=== PATIENT | male | born 1940 | race Caucasian/White ===

== ENCOUNTER 2016-06-30 22:27 | Inpatient (IN) | payer OTHER ==
[~2016-06-30] VITALS: Ht 167.6 cm; Wt 78.9 kg
[~2016-06-30 22:27] MED LIST: ENALAPRIL20 MG PO; FUROSEMIDE20 M1 PO; HYDRODIURIL 2525 MG PO; LEVOTHYROXINE0.2 MG PO; METHOTREXATE PO
--- NOTE | 2016-06-30 22:38 | NUR ---
RECENTLY DIAGNOSED WITH DIABETES, STATES BLOOD SUGAR HAS BEEN GOING UP AND DOWN. LAST NIGHT BECAME VERY SOB, ANY KIND OF MOVEMENT MADE HIM SOB. PT DENIES CP BUT HAS NON PRODUCTIVE COUGH
--- NOTE | 2016-06-30 22:57 | ED DYSPNEA/ASTHMA COMPLAINT ---
History of Present Illness General Chief Complaint: Dyspnea (COPD, CHF, Other) Stated Complaint: SOB Source: patient, family, old records Exam Limitations: no limitations Vital Signs & Intake/Output Vital Signs & Intake/Output Vital Signs Date Time Temp Pulse Resp B/P Pulse O2 O2 Flow FiO2 Ox Delivery Rate 06/30 2327 97 Nasal 3.0L Cannula 06/30 2237 98.6 98 20 152/89 91 Room Air ED Intake and Output 07/01 0000 06/30 1200 Intake Total 0 Output Total Balance 0 Intake, Oral 0 Patient 180 lb Weight Allergies Coded Allergies: aspirin (Mild, ULCER 10/13/15) Reconcile Medications Enalapril Maleate 20 MG TAB 1 TAB PO DAILY HTN (Reported) Furosemide 20 MG TAB 1 TAB PO DAILY FLUID OVERLOAD (Reported) Hydrochlorothiazide (Hydrodiuril 25 MG Tab) 25 MG TAB 1 TAB PO DAILY HTN ( Reported) Levothyroxine Sodium 0.2 MG TAB 1 TAB PO DAILY THYROID (Reported) Methotrexate Sodium (Rheumatrex) 2.5 MG TAB 10 MG PO QTHURS RA (Reported) Triage Note: RECENTLY DIAGNOSED WITH DIABETES, STATES BLOOD SUGAR HAS BEEN GOING UP AND DOWN. LAST NIGHT BECAME VERY SOB, ANY KIND OF MOVEMENT MADE HIM SOB. PT DENIES CP BUT HAS NON PRODUCTIVE COUGH Triage Nurses Notes Reviewed? yes HPI: Patient was diagnosed with diabetes last week. On Monday his legs began swelling up. Yesterday he developed shortness of breath and dyspnea on exertion. Patient denies any orthopnea. Patient denies any chest pain or palpitations. There are no fevers or chills. There is no coughing. Patient states that he has to stop walking across the room to catch his breath. Past History Travel History Traveled to [place] past 21 day No Medical History Any Pertinent Medical History? see below for history Neurological: CVA Cardiovascular: CHF, hypertension, CARDIOMEGALY Musculoskeletal: rheumatoid arthritis Endocrine: hypothyroidism Cancer(s): prostate cancer History of MRSA: No History of VRE: No History of CDIFF: No Pneumonia Vaccine: 04/11/09 Surgical History Surgical History: non-contributory Psychosocial History Who do you live with Spouse Services at Home None What is your primary language Serbocroatian Tobacco Use: Never used ETOH Use: denies use Illicit Drug Use: denies illicit drug use Family History Hx Contributory? No Review of Systems Review of Systems Constitutional: Reports: no symptoms. EENTM: Reports: no symptoms. Respiratory: Reports: see HPI, short of breath. Cardiovascular: Reports: no symptoms. GI: Reports: no symptoms. Genitourinary: Reports: no symptoms. Musculoskeletal: Reports: see HPI. Skin: Reports: no symptoms. Neurological/Psychological: Reports: no symptoms. Hematologic/Endocrine: Reports: no symptoms. Immunologic/Allergic: Reports: no symptoms. All Other Systems: Reviewed and Negative Physical Exam Physical Exam General Appearance: well developed/nourished, alert, awake, anxious, moderate distress Head: atraumatic, normal appearance Eyes: Bilateral: PERRL, EOMI. Ears, Nose, Throat: normal pharynx, normal ENT inspection Neck: JVD (8CM WHILE SITTING STRAIGHT UP) Respiratory: crackles Cardiovascular: regular rate/rhythm, normal peripheral pulses Gastrointestinal: normal bowel sounds, soft, non-tender, no organomegaly Extremities: pedal edema Neurologic/Psych: no motor/sensory deficits, awake, alert, oriented x 3, normal mood/affect Skin: intact, normal color, warm/dry Lymphatic: no anterior cervical desmond Core Measures ACS in differential dx? Yes ASA ordered for poss ACS? Yes-ordered Severe Sepsis Present: No Septic Shock Present: No Progress Differential Diagnosis: AMI, bronchitis, CHF, COPD, pulmonary embolism, pneumonia Plan of Care: Orders Procedure Date/time Status Admit to inpatient 07/01 22 Active Telemetry/Inspector Toys 06/30 2256 Active URINALYSIS 06/30 2256 Complete TROPONIN LEVEL 06/30 2256 Complete COMPREHENSIVE METABOLIC PANEL 06/30 2256 Complete CBC WITHOUT DIFFERENTIAL 06/30 2256 Complete B-TYPE NATRIURETIC PEP (BNP) 06/30 2256 Complete EKG 06/30 2250 Active Current Medications Sig/Lenny Start time Last Medication Dose Stop Time Status Admin Insulin Detemir 10 UNITS ONCE ONE 07/01 30 UNVr (Levemir) 07/01 0031 Laboratory Tests 06/30/16 2345: Urinalysis LIGHT H, Urine Color YEL, Urine Clarity CLEAR, Urine pH 6.0, Ur Specific [place] 1.020, Urine Protein 30 H, Urine Ketones NEG, Urine Nitrite NEG, Urine Bilirubin NEG, Urine Urobilinogen 2.0 H, Ur Leukocyte Esterase NEG, Ur Microscopic SEDIMENT EXAMINED, Urine RBC 1-3, Urine WBC 1-3 H, Ur Epithelial Cells FEW, Urine Hemoglobin SMALL H, Urine Glucose NEG 12/29/16 2339: Anion Gap 7, Estimated GFR > 60, BUN/Creatinine Ratio 25.6 H, Glucose 105 H, Calcium 8.1 L, Total Bilirubin 1.8 H, AST 37, ALT 24, Alkaline Phosphatase 171 H, Troponin I < 0.01, Hun-P-Zrvonkngooj Pept 3060 H, Total Protein 8.9 H, Albumin 3.0 L, Globulin 5.9 H, Albumin/Globulin Ratio 0.5 L 06/30/16 2305: CBC w Diff NO MAN DIFF REQ, RBC 4.20 L, MCV 74.9 L, MCH 24.3 L, RDW 20.4 H, MPV 7.0 L, Gran % 57.7, Lymphocytes % 26.4, Monocytes % 14.8 H, Eosinophils % 0.3, Basophils % 0.8, Absolute Granulocytes 3.5, Absolute Lymphocytes 1.6, Absolute Monocytes 0.9 H, Absolute Eosinophils 0, Absolute Basophils 0.1, PUBS MCHC 32.4 L Diagnostic Imaging: Viewed by Me: Radiology Read. Discussed w/RAD: Radiology Read. CXR Impression: PATIENT: NINA NELSON PRESENT AGE: 75 PATIENT ACCOUNT NO: [id number] : 38 LOCATION: [facility] ORDERING PHYSICIAN: ELIZABETH BELLAMY MD SERVICE DATE: 06/30/16 EXAM TYPE: RAD - XRY- PORTABLE CHEST XRAY EXAMINATION: XR PORTABLE CHEST CLINICAL INFORMATION: Dyspnea on exertion. Abnormal chest sounds. COMPARISON: Chest x-ray 04/21/2016 TECHNIQUE : Portable view of the chest was obtained. 11:09 PM FINDINGS: Heart size is enlarged. There is moderate pulmonary vascular congestion and increased interstitial lung markings of interstitial edema. There are moderate volume right lateral pleural effusions. IMPRESSION: Congestive heart failure. DICTATED BY: ROME GILBERT MD DATE/TIME DICTATED:06/30/162353 [employer] DATE/TIME TRANSCRIBED:06/30/162353 CONFIDENTIAL, DO NOT COPY WITHOUT APPROPRIATE AUTHORIZATION. <Electronically signed in Other Vendor System> SIGNED BY: ROME GILBERT MD 06/30/16 7771 Initial ED EKG: SR WITH BBB OF LEFT BUNDLEOID PATTERN, TACHYCARDIC, NSSTT CHANGES Prior EKG: unchanged Rhythm Strip: normal sinus rhythm Departure Departure Disposition: STILL A PATIENT Condition: Guarded Clinical Impression Primary Impression: Pulmonary edema Secondary Impressions: Hyponatremia Referrals: ALICE BARNHART MD (PCP/Family) Referred to [facility] as new patient No Departure Forms: Customer Survey General Discharge Information Admission Note Spoke With: SARAI BOYCE MD Documentation of Exam: Documentation of any treatments & extenuating circumstances including Concerns Regarding Discharge (functional status, medication knowledge or non-compliance, living conditions, etc.) that warrant an admission rather than observation: [IV DIURESIS, TELE MONITORING, CARDIOLOGY CONSULT] Critical Care Note Critical Care Note Critical Care Time: 30-74 min
[2016-06-30 23:19] LABS: ABSOLUTE BASOPHIL COUNT 0.1 /CUMM (0.0-0.2); ABSOLUTE EOSINOPHIL COUNT 0 /CUMM (0.0-0.7); ABSOLUTE GRANULOCYTE CT 3.5 /CUMM (1.4-6.5); ABSOLUTE LYMPH COUNT 1.6 /CUMM (1.2-3.4); ABSOLUTE MONOCYTE COUNT 0.9 /CUMM (0.10-0.60); BASOPHIL % 0.8 % (0.0-2.0); EOSINOPHIL % 0.3 % (0-5); GRANULOCYTE % 57.7 % (42.2-75.2); HEMATOCRIT 31.5 % (42-52); MEAN CORPUSCULAR HGB 24.3 PG (27.0-31.0); MEAN CORPUSCULAR HGB CONC 32.4 G/DL (33.0-37.0); MEAN CORPUSCULAR VOLUME 74.9 FL (80.0-94.0); PLATELET COUNT 170 /CUMM (130-400); RBC DISTRIBUTION WIDTH 20.4 % (11.5-14.5)
--- NOTE | 2016-06-30 23:29 | NUR ---
PT 88% ON RA AT REST, PLACED ON 3LNC ON ARRIVAL INTO RM 8. 02 IMPROVED TO 97% AND FEELS LESS SOB. RESTING COMFORTABLY. AWAITING RESULTS
--- NOTE | 2016-06-30 23:45 | NUR ---
VOIDED 150ML URINE IN THE URINAL. URINE SPECIMEN OBTAINED AND SENT.
--- NOTE | 2016-06-30 23:58 | RADIOLOGY REPORT ---
EXAMINATION: XR PORTABLE CHEST CLINICAL INFORMATION: Dyspnea on exertion. Abnormal chest sounds. COMPARISON: Chest x-ray 04/21/2016 TECHNIQUE: Portable view of the chest was obtained. 11:09 PM FINDINGS: Heart size is enlarged. There is moderate pulmonary vascular congestion and increased interstitial lung markings of interstitial edema. There are moderate volume right lateral pleural effusions. IMPRESSION: Congestive heart failure.
--- NOTE | 2016-07-01 00:55 | History & Physical ---
JOHANN TELLES,[facility] 07/01/16 0055: General Information and HPI MD Statement: I have seen and personally examined NINA NELSON and documented this H&P. The patient is a 75 year old M who presented with a patient stated chief complaint of [weakness, cough and SOB]. Source of Information: patient, family, old records, his two sons transplated and provided history History of Present Illness: Patient is a 75-year-old gentleman with past medical history CHF (stage III diastolic dysfunction) was brought to the to the ED by the family due to difficulty breathing. According to the son patient started to feel weak and dizzy since about a week ago, he also has had coughing with white phlegm during the past week. In addition has noticed worsening of the swelling in the feet as well as feeling cold in the lower extremities. Since about 2 days ago patient also has had difficulty breathing which is mostly worsened at night and when lying down. Today SOB has worsened and has happened during the day as well adn while at rest. Patient's family contacted the PCP and were told to bring the patient to the hospital. He denies chest pain, palpitations, diaphoresis. Denies nausea vomiting, abdominal pain, diarrhea. Reports headache every now and then. Appetite has been poor. Denies changes in diet. Denies fever chills, sick contacts, or recent travel. Patient saw Dr. Chapman one month ago and reports that he was doing fine and he was walking around feeling good at that time. Patient also follows up with Dr. Nevarez for prostate cancer was found to have anemia, reportedly stool exam was negative for occult blood, and patient has refused colonoscopy. Reports a history of pneumonia for which he received antibiotics about 3 months ago. About a week ago patient has been started on insulin with a diagnosis of diabetes by the PCP and is using Levemir 10 units at bedtime and insulin Humalog. Sugars have been running in 90s in the morning and 130-170 during the day. Of note, patient was admitted in August 2015 with chief complaint of coughing and pericardial effusion detected on echo and was sent to the ED by Dr. Chapman for pericardial window and drainage. Patient does not have any known allergies. Reports a history of upper GI bleeding while on aspirin 20 years ago after which aspirin has been stopped. Allergies/Medications Allergies: Coded Allergies: aspirin (Mild, ULCER 10/13/15) Home Med list Enalapril Maleate 20 MG TAB 1 TAB PO DAILY HTN (Reported) Folic Acid 1 MG TABLET 2 MG PO DAILY SUPPLEMENT (Reported) Furosemide 20 MG TAB 1 TAB PO DAILY FLUID OVERLOAD (Reported) Hydrochlorothiazide (Hydrodiuril 25 MG Tab) 25 MG TAB 1 TAB PO DAILY HTN ( Reported) Insulin Aspart (Novolog) 100 UNIT/ML CARTRIDGE (Unknown Dose) SC SLIGHTING DIABETES (Reported) Insulin Detemir (Levemir) 100 UNIT/ML VIAL (Unknown Dose) SC DAILY HS DIABETES (Reported) Levothyroxine Sodium 0.2 MG TAB 1 TAB PO DAILY THYROID (Reported) Methotrexate Sodium (Rheumatrex) 2.5 MG TAB 10 MG PO QTHURS RA (Reported) Compliance With Home Meds: GOOD Past History Travel History Traveled to [place] past 21 day No Medical History Neurological: 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 spouse, child Services at Home: None Primary Language: [place] Citizen Smoking Status: Former Smoker (quick 22 years ago) ETOH Use: denies use Illicit Drug Use: denies illicit drug use Functional Ability ADLs Independent: dressing, eating, toileting, bathing. Ambulation: independent Review of Systems Review of Systems Constitutional: Reports: malaise, weakness. Denies: chills, diaphoresis, fever. EENTM: Denies: visual changes, hearing changes. Cardiovascular: Reports: edema, orthopena, peripheral edema. Denies: chest pain, palpitations, syncope. Respiratory: Reports: cough, orthopnea, short of breath, sputum production. Denies: hemoptysis, stridor, wheezing. GI: Denies: abdominal pain, nausea, changes in stool, vomiting. Genitourinary: Denies: discharge, dysuria, nocturia. Musculoskeletal: Denies: back pain, joint pain. Skin: Denies: change in skin color, change in hair/nails, lesions, rash. Neurological/Psychological: Reports: headache, weakness. Denies: numbness, paresthesia, tingling, tremors. Hematologic/Endocrine: Denies: bruising, bleeding, polyuria, polydipsia. Exam & Diagnostic Data Last 24 Hrs of Vital Signs/I&O Vital Signs Date Time Temp Pulse Resp B/P Pulse O2 O2 Flow FiO2 Ox Delivery Rate 07/01 0152 96.0 91 20 139/76 95 Room Air 06/30 2327 97 Nasal 3.0L Cannula 06/30 2237 98.6 98 20 152/89 91 Room Air Intake & Output 07/01 0800 07/01 0000 06/30 1600 Intake Total 0 Output Total Balance 0 Intake, Oral 0 Patient 81.647 kg Weight Physical Exam General Appearance Alert, Oriented X3, Cooperative, No Acute Distress Skin No Rashes, No Breakdown, No Significant Lesion HEENT Atraumatic, PERRLA, EOMI Neck Supple, JVD present Cardiovascular Regular Rate, Normal S1, Normal S2, No Murmurs Lungs Clear to Auscultation, Normal Air Movement Abdomen Normal Bowel Sounds, Soft, No Tenderness Neurological Normal Speech, Strength at 5/5 X4 Ext, Normal Tone, Sensation Intact, Cranial Nerves 3-12 NL Extremities Normal Pulses, 2+ pitting edema b/l LEs Vascular Normal Pulses, Pulses Symmetrical Last 24 Hrs of Labs/Thomas: Laboratory Tests 06/30/16 2345: Urinalysis LIGHT H, Urine Color YEL, Urine Clarity CLEAR, Urine pH 6.0, Ur Specific [place] 1.020, Urine Protein 30 H, Urine Ketones NEG, Urine Nitrite NEG, Urine Bilirubin NEG, Urine Urobilinogen 2.0 H, Ur Leukocyte Esterase NEG, Ur Microscopic SEDIMENT EXAMINED, Urine RBC 1-3, Urine WBC 1-3 H, Ur Epithelial Cells FEW, Urine Hemoglobin SMALL H, Urine Glucose NEG 06/30/16 2339: Anion Gap 7, Estimated GFR > 60, BUN/Creatinine Ratio 25.6 H, Glucose 105 H, Calcium 8.1 L, Total Bilirubin 1.8 H, AST 37, ALT 24, Alkaline Phosphatase 171 H, Troponin I < 0.01, Iru-D-Xbofmuphhko Pept 3060 H, Total Protein 8.9 H, Albumin 3.0 L, Globulin 5.9 H, Albumin/Globulin Ratio 0.5 L 06/30/16 2305: CBC w Diff NO MAN DIFF REQ, RBC 4.20 L, MCV 74.9 L, MCH 24.3 L, RDW 20.4 H, MPV 7.0 L, Gran % 57.7, Lymphocytes % 26.4, Monocytes % 14.8 H, Eosinophils % 0.3, Basophils % 0.8, Absolute Granulocytes 3.5, Absolute Lymphocytes 1.6, Absolute Monocytes 0.9 H, Absolute Eosinophils 0, Absolute Basophils 0.1, PUBS MCHC 32.4 L Assessment/Plan Assessment: Patient is a 75-year-old gentleman with past medical history significant for rheumatoid arthritis (on methotrexate), hypothyroidism, HTN, prostate cancer s/p radiotherapy and hormonal suppression therapy, CHF with stage III diastolic dysfunction, last admitted in August 2015 for pericardial effusion, who presented to the ED with 1 week of worsening weakness, pedal edema, orthopnea, coughing, and shortness of breath. Vitals vital signs in the ED showed T of 98.6, pulse rate 98, respiratory rate 20 saturating in room air, blood pressure 152/89. Lab work showed elevated proBNP of 3060 Chest x-ray reported congestive heart failure Problem list and plan: CHF exacerbation History of CHF with stage III diastolic dysfunction, on 20 mg by mouth Lasix at home and follows up with Dr. Chapman last seen a month ago. Last echo done in . * Received 40 mg IV Lasix in the ED * Continue IV Lasix 40 mg daily * Strict I's and O's and daily weight * Repeat echocardiogram * Cardiology consult in the morning with Dr. Chapman History of pericardial effusion Admitted in August 2015 for pericardial effusion, pericardial window was placed * Chest CT with IV contrast to rule out pericardial patient Type 2 diabetes Patient was diagnosed about a week ago and was started on insulin by the PCP, patient is taking Levemir 10 units at bedtime and Humalog sliding scale, blood sugars have been below 100 in the morning and between 130 to 170s to 100 today. BS in the ED 94. * Held Levemir and started on low dose NovoLog sliding scale from the morning * Accu-Cheks every 4 hours * Placed endocrinology consult for a.m. Rheumatoid arthritis * Continue methotrexate Hypothyroidism * Continue levothyroxine Hypertension * Continue valsartan and hydrochlorothiazide History of Prostate cancer and anemia Status post radiotherapy and hormonal therapy. Follows up with Dr. Nevarez. Recent guaiac stool was negative History of upper GI bleeding Almost 20 years ago, aspirin was stopped at that time. No reports of GIB since then. History of CVA At the age of 45, had motor deficits for about 6 months afterwards but has been doing well since then with no neurologic deficits. Pain * Mild pain, Tylenol * Moderate to severe pain, oxycodone DVT prophylaxis * Subcutaneous Lovenox FULL CODE As Ranked By This Provider Problem List: 1. Hypothyroidism 2. Hyperlipidemia 3. GI BLEED 4. Essential hypertension 5. Carcinoma of prostate 6. Pericardial effusion 7. Rheumatoid arthritis 8. CHF exacerbation Core Measures/Miscellaneous Acute Coronary Syndrome ACS Diagnosis: No Cerebrovascular Accident CVA/TIA Diagnosis: No Congestive Heart Failure CHF Diagnosis: Yes Date of most recent Echo: 11/16/15 Last Known EF %: 50 MOISES/ARB for EF <40%: Yes (valsartan (80 mg daily)) Venous Thromboembolism VTE Risk Factors: Acute medical illness, Age > 40 VTE Prophylaxis Ordered Inpt: Pharm- Lovenox No Mech VTE prophylaxis d/t: No contraindications No VTE Pharm Prophylaxis d/t: No contraindications VTE Diagnosis: No VTE Type: NONE VTE Confirmed by (Test): NONE Severe Sepsis Severe Sepsis Present: No Septic Shock Septic Shock Present: No Miscellaneous Documentation Attending Case Discussed With: SARAI BOYCE MD Primary Care Physician: ALICE BARNHART MD Patient sees these Specialists Dr. Chapman (cardiology) Level of Patient Care: Telemetry Consults Needed: 1 Consulting Specialty: Cardiology Consulting Physician: Dr. Morrow Reason for Consult: CHF exacerbation Consults Needed: 2 Consulting Specialty: Endocrinology Reason for Consult: recently diagnosed diabetes and started on insulin therapy TOMMY WASHINGTON 07/01/16 0147: Resident Review Statement Resident Statement: examined this patient, discussed with it intern, agreed with it intern Other Findings: Patient is 75-year-old montenegrin speaking man with a past medical history significantfor rheumatoid arthritis (maintained on methotrexate),hypothyroidism, HTN, prostate cancer s/p radiotherapy and hormonal suppression therapy, recently diagnosed with diabetes started on insulin by his primary care physician presented to the ED with a chief complaints of worsening dyspnea with weakness and lethargy for the last 1 week. As patient is [place] Citizen speaking most of the history was obtained from the son. As per son he was recently started on insulin by his primary care physician( sliding scale +10 units of Levemir at bedtime), since then he has not been feeling well. Reports generalized weakness and lethargic all the time his appetite has been low. For the last 2 days he's been getting short of breath, using 2 pillows at bedtime without any orthopnea/PND. Denies any chest discomfort or palpitations. Denies any recent infections/fever or chills. Today his symptoms got worse and he was brought to the ER for further assessment. Of note the patient was treated for pneumonia as an outpatient about 3 months ago, repeated chest x-ray as an outpatient was normal. He was admitted in [facility] in August 2015 due to pericardial effusion causing tamponade underwent pericardial window with chest tube placement. Postprocedure patient developed refractory hypotension that resulted in acute kidney. Injury. Patient had a remote history of duodenal/stomach ulcer that was complicated by severe upper GI bleed, most likely due to aspirin(as per his transaction coordinator) and since that he is not taking any aspirin Vitals on admission to be 98.6, pulse 98, respiratory 20, blood pressure 152/89 and saturating more than 92% on 3 L. General Appearance:alert oriented 3 not in acute distress. Skin: Grossly normal HEENT: PEERLA Neck: Supple,positive JVD Cardiovascular: Regular Rate, Normal S1, Normal S2, No Murmurs Lungs: bilateral basal crackles on examination Abdomen: Normal Bowel Sounds, Soft, lower abdominal tenderness. Neurological: Normal Speech, Strength at 5/5 X4 Ext, Cranial Nerves 3-12 NL, Reflexes 2+ Extremities: Trace bilateral edema . Vascular: Normal Pulses. Pertinent labs H&H 10.2/31.5 with MCV of 74.9, hyponatremia 130, with hypokalemia 3.3 elevated BUN 23 with creatinine 0.9, elevated ALT PE 171 proBNP : 3060, urine analysis is benign. Chest x-ray: moderate pulmonary vascular congestion and increased interstitial lung markings of interstitial edema. There are moderate volume right lateral pleural effusions. Echocardiogram done in November 2015 showed Borderline normal left ventricular ejection fraction estimated at 50-55%. Restrictive filling pattern of the left ventricle for age (stage 3 diastolic dysfunction). Assessment: 1.Acute on chronic stage III diastolic heart failure 2.Rule out pericardial effusion/cardiac tamponade 3.Euvolemic hyponatremia 4.Recently diagnosed type 2 diabetes mellitus 5. History of hypothyroidism 6. History of rheumatoid arthritis Plan 1.Acute on chronic stage III diastolic heart failure: * We will admit the patient to telemetry floor. * Patient received one-time dose of IV Lasix 40 mg daily we'll continue with 40 mg of IV Lasix in the morning. * Will repeat echocardiogram. * We'll obtain cardiology consult in the morning with Dr. Chapman. * Maintain strict in's and O's with daily weight checks. * Leg elevation 2.Rule out pericardial effusion/cardiac tamponade (cardiomegaly on the chest x- ray history of pericardial effusion complicated with cardiac tamponade in the past) * Echocardiogram done in November 2015 showed persistent small pericardial effusion posterior to the right atrial free wall. * Talked to Dr. Montes over the phone regarding urgent need of echocardiogram to diagnose cardiac tamponade, he mentioned to carefully diurese the patient and watch for any drastic drop in blood pressure with tachycardia. * As the blood pressure is stable right now after IV Lasix and there are no signs of tachycardia we will carefully monitor the patient overnight no need of urgent echocardiogram at this time as per cardiology. * Will do echocardiogram in the morning. * In case patient becomes hemodynamically unstable will consider doing stat echocardiogram. 3.History of hypertension: * Continue home dose of MOISES inhibitors and hydrochlorothiazide. 4.Euvolemic hyponatremia: * Sodium 130. * urine lites, serum osmolality, urine osmolality. * Will repeat BEP in the morning. 5.Recently diagnosed type 2 diabetes mellitus: * blood sugar levels in the ED 94 * Will hold of Levemir * Start small dose NovoLog sliding scale for the morning * Accu-Cheks every 4 hours. 6. History of hypothyroidism: * continue home dose of levothyroxine. 7. History of rheumatoid arthritis * ccontinue methotrexate. 8. Routine [id number] been controlled with Tylenol and oxycodone. 9. DVT prophylaxis subcutaneous Lovenox 10.Patient is full code SARAI BOYCE 07/01/16 0710: Attending MD Review Statement Attending Statement Attending MD Statement: examined this patient, discuss w/resident/PA/BLOCK BREAKER, agreed w/resident/PA/BLOCK BREAKER, reviewed EMR data (avail), reviewed images, amended to note Attending Assessment/Plan: CC: SOB PMHx : Recently diagnosed DM currently on insulin, HTN, RA on methotrexate, hypothyroidism, prostate cancer status post radiation and hormonal treatment, pericardial effusion with tamponade in August 2015 treated with pericardial window, HFpEF with restrictive filling pattern. Patient speaks [place] Citizen so history is provided by his son. Patient was recently diagnosed to have diabetes outpatient and was started on insulin by PCP, after starting insulin patient was feeling very weak and lethargic, decreased appetite. Dyspnea on exertion started 1 week back along with orthopnea. Patient denies any PND, chest pain, palpitations. Family noticed increased leg swelling. He had some cough with white colored sputum production. Vitals: Afebrile, no tachycardia, respiratory rate under 20. BP ranging from 150/90-132/68, requiring 3 L O2 by nasal cannula to saturate at 91% at presentation. On examination: AO 3, appears and respiratory discomfort, accessory muscles of respiration in use, elevated JVD, no lymphadenopathy, neck supple, mucosa moist and pink. CVS: S1-S2, RRR, I could not appreciate S3 or rub. RS: Bilateral diffuse crackles. Abdomen: Soft, NT, ND, bowel sounds present. +1 pitting edema bilateral lower extremity. Labs: Hemoglobin 10.2, sodium 1:30, potassium 3.3, chloride 89, bicarbonate 35, BUN 23. Bilirubin 1.8, calcium 8.1, proBNP 3060. UA noncontributory. CXR: Congestive heart failure, heart started enlarged. EKG: Wide-complex rhythm probably LBBB, unchanged from previous. A and P #1 acute hypoxic respiratory failure: Probably secondary to heart failure, patient currently on 3 L nasal cannula, accessory respiratory muscles in use. #2 acute decompensated heart failure: Requiring O2 by nasal cannula, hemodynamically stable. ProBNP is elevated, chest x-ray shows congestive heart failure. Patient had previous history of pericardial effusion in August 2015, treated with pericardial window. Follow-up echocardiogram in the month of October showed residual loculated pericardial effusion on the posterior side, given the patient's acute presentation of heart failure along with the JVD any recurrence of pericardial effusion should be ruled out. We called cardiology overnight to assess the need of immediate echocardiogram with the concern of tamponade, but given that there are no electrical R Epi on EKG, hemodynamic stability, stat 2-D echo was deferred, obtain 2-D a call in a.m. trend troponin, cardiac enzymes, strict I's and O's, daily weights, schedule next dose of Lasix in morning 40 mg IV. #3 hypokalemia: Replace potassium., Check magnesium and replace if deficient. #4 hyponatremia: Probably secondary to hypovolemia and heart failure, Continue diuresis. #5 newly diagnosed diabetes mellitus: Patient currently on insulin, patient requests endocrinology consult. Inform endocrinology in the morning. Continue Accu-Cheks only, resume sliding scale insulin in a.m. if required. Given his hemoglobins A1c is 7.0, consider oral hypoglycemics on discharge. #6 HTN: Hold and metoprolol for tonight, schedule for tomorrow morning if blood pressure is stable., Hold HCTZ #7 RA, prostate cancer, hypothyroidism: Continue home medications. #8 DVT prophylaxis with Lovenox, adequate pain control.
--- NOTE | 2016-07-01 01:01 | NUR ---
PT'S RM ASSIGNMENT 179 BED 2
--- NOTE | 2016-07-01 01:38 | NUR ---
PT REFUSED ASPIRIN PO STATING THAT PT HAD ULCER AND BLEEDING FROM ASPIRIN. HELD LEVEMIR SC BY HOUSE STAFF FINGER STICK WAS 97.
--- NOTE | 2016-07-01 01:50 | NUR ---
LASIX IVP ADMINISTERED ORDERD. VITAL SIGNS STABLE PRIOR TO MED ADMINISTRATION.
[2016-07-01] MEDS ORDERED: FOLIC ACID1 M1 PO (01:59)
[2016-07-01] MEDS ORDERED: LEVEMIR100 UNIT/1 SC (02:00)
[2016-07-01] MEDS ORDERED: NOVOLOG100 UNIT/1 SC (02:01)
--- NOTE | 2016-07-01 02:04 | NUR ---
NINA NELSON Nurse Note by: CRISTIAN MCDONOUGH I agree with the DENTAL RECEPTIONIST findings/evaluation of this patient's condition. Entered by: CRISTIAN MCDONOUGH Date: 07/01/16 Time: 0200
[2016-07-01 02:49] VITALS: BP 132/68
[2016-07-01 06:13] LABS: ABSOLUTE BASOPHIL COUNT 0 /CUMM (0.0-0.2); ABSOLUTE EOSINOPHIL COUNT 0 /CUMM (0.0-0.7); ABSOLUTE GRANULOCYTE CT 2.8 /CUMM (1.4-6.5); ABSOLUTE LYMPH COUNT 1.4 /CUMM (1.2-3.4); ABSOLUTE MONOCYTE COUNT 0.6 /CUMM (0.10-0.60); BASOPHIL % 0.5 % (0.0-2.0); EOSINOPHIL % 0.2 % (0-5); GRANULOCYTE % 58.1 % (42.2-75.2); HEMATOCRIT 29.4 % (42-52); MEAN CORPUSCULAR HGB 24.2 PG (27.0-31.0); MEAN CORPUSCULAR HGB CONC 32.3 G/DL (33.0-37.0); MEAN CORPUSCULAR VOLUME 75.1 FL (80.0-94.0); MEAN PLATELET VOLUME 6.9 FL (7.4-10.4); PLATELET COUNT 142 /CUMM (130-400); RBC DISTRIBUTION WIDTH 20.6 % (11.5-14.5); RED BLOOD CELL CT 3.91 /CUMM (4.70-6.10); WHITE BLOOD CELL COUNT 4.8 /CUMM (4.8-10.8)
--- NOTE | 2016-07-01 07:13 | Admission Certification ---
Admission Certification Certification Statement - As attending physician, I certify that at the time of - admission, based on clinical presentation, severity of - symptoms, need for further diagnostic testing and - therapeutic interventions, and risk of adverse outcomes - without in-hospital treatment, in my clinical assessment, - this patient requires an acute hospital stay for a minimum - of two nights or longer. I have also considered psychsocial - factors such as support system, advanced age, financial - issues, cognitive issues, and failed out-patient treatments, - past re-admission history, safety of patient, and lack of - compliance as applicable. Specific rationale supporting this admission is: Acute decompensated heart failure
--- NOTE | 2016-07-01 07:34 | PN- Housestaff ---
Assessment/Plan Consulting Request: Consulting Specialty: Endocrinology Consulting Physician: Dr. Morrow Reason for Consult: recently diagnosed diabetes and started on insulin therapy
[2016-07-01 08:42] VITALS: BP 136/60
--- NOTE | 2016-07-01 10:36 | Cons- Cardiology ---
General Information and HPI Consulting Request Date of Consult: 07/01/16 Requested By: SARAI BOYCE MD Reason for Consult: Shortness of breath. Source of Information: patient, family Exam Limitations: language barrier History of Present Illness: Mr. Chris Lomas is a 75-year-old male of Eastern ([place]) descent with a history of right sided stroke at age 45 years complicated by subsequent GI ulceration secondary to aspirin therapy requiring endoscopic intervention, previously treated dyslipidemia, hypertension, hypothyroidism, gastroesophageal reflux disease, rheumatoid arthritis for which he is on methotrexate, prostate carcinoma for which he is s/p hormone and radiation therapy, and previous hemolytic anemia, mild left ventricular dysfunction with EF 50-55% and stage III diastolic dysfunction by echocardiogram (11/16/2015), and pericardial tamponade discovered while he was having a routine outpatient echocardiogram performed that ultimately led to admission (08/04-08/12/2015) and urgent pericardial window by CT surgery (Robbie Arevalo M.D.) who now presents with complaints of progressive shortness of breath with clinical and radiographic evidence of heart failure. There was also a suspicion of an aortic abnormality on the echocardiogram, described above, and a small ascending thoracic aortic aneurysm and an intramural hematoma of the distal ascending aorta and proximal aortic arch were seen that remained stable. Of note is the fact that the patient was recently diagnosed with diabetes mellitus and started on insulin therapy (NovoLog, Levemir). According to his son, his glucose levels have been fluctuating. Approximately 48 hours ago Mr. Lomas began experiencing shortness of breath that progressed with the above described associated symptoms/signs. Allergies/Medications Allergies: Coded Allergies: aspirin (Mild, ULCER 10/13/15) Home Med List: Enalapril Maleate 20 MG TAB 1 TAB PO DAILY HTN (Reported) Folic Acid 1 MG TABLET 2 MG PO DAILY SUPPLEMENT (Reported) Furosemide 40 MG TABLET 1 TAB PO DAILY FLUID RETENTION Hydrochlorothiazide (Hydrodiuril 25 MG Tab) 25 MG TAB 1 TAB PO DAILY HTN ( Reported) Insulin Aspart (Novolog) 100 UNIT/ML CARTRIDGE (Unknown Dose) SC SLIGHTING DIABETES (Reported) Insulin Detemir (Levemir) 100 UNIT/ML VIAL (Unknown Dose) SC DAILY HS DIABETES (Reported) Levothyroxine Sodium 0.2 MG TAB 1 TAB PO DAILY THYROID (Reported) Methotrexate 2.5 MG TABLET 5 MG PO QTHURS RHEUMATOID ARTHRITIS (Reported) Metoprolol Tartrate 25 MG TABLET 0.5 TAB PO BID HEART HEALTH Repaglinide (Prandin) 0.5 MG TABLET 1 TAB PO TIDAC DIABETES Hold prandin if you skip a meal Review of Systems Review of Systems: A 14 point system review was obtained and was noncontributory, other than as above. Past History Travel History Traveled to [place] past 21 day No Medical History Blood Transfusion Hx: Yes Neurological: CVA at age of 45 due to hypertension Cardiovascular: CHF (pericardial effusion), hypertension, CARDIOMEGALY Gastrointestinal: upper GI bleed Musculoskeletal: rheumatoid arthritis Endocrine: hypothyroidism Blood Disorders: anemia Cancer(s): prostate cancer Surgical History Surgical History: non-contributory Psychosocial History Where Do You Live? Home Who Do You Live With? spouse, child Services at Home: None Primary Language: Omani Smoking Status: Former Smoker (quick 22 years ago) ETOH Use: denies use Illicit Drug Use: denies illicit drug use Functional Ability ADLs Independent: dressing, eating, toileting, bathing. Ambulation: independent Exam & Diagnostic Data Vital Signs and I&O Vital Signs Date Time Temp Pulse Resp B/P Pulse O2 O2 Flow FiO2 Ox Delivery Rate 07/01 1029 136/60 07/01 0842 97.5 112 18 136/60 94 Nasal Cannula 07/01 0800 Nasal 2.0L Cannula 07/01 0400 94 Nasal 2.0L Cannula 07/01 0249 97.6 88 18 132/68 95 Nasal 2.0L Cannula 07/01 0152 96.0 91 20 139/76 95 Room Air 06/30 2327 97 Nasal 3.0L Cannula 06/30 2237 98.6 98 20 152/89 91 Room Air Intake & Output 07/01 1600 07/01 0800 07/01 0000 06/30 1600 06/30 0800 06/30 0000 Intake Total 100 0 Output Total 450 Balance -350 0 Intake, Oral 100 0 Output, Urine 450 Patient 180 lb 180 lb Weight Physical Exam: Well-developed, well-nourished elderly male in no acute distress. Vital signs: See above. HEENT: Normocephalic, atraumatic, EOMI, moist mucous membranes. Neck: No JVD, no bruits. Lungs: Bibasilar crackles. Heart: S1, S2 with no murmur, gallop, or rub appreciated. PMI fifth ICS at [facility]. Abdomen: Soft, nontender, positive bowel sounds. Extremities: Trace bilateral lower extremity edema. Labs/Thomas Results: Laboratory Tests 07/01 06/30 0525 2345 Chemistry Sodium (137 - 145 mmol/L) 132 L Potassium (3.5 - 5.1 mmol/L) 3.4 L Chloride (98 - 107 mmol/L) 90 L Carbon Dioxide (22 - 30 mmol/L) 32 H Anion Gap (5 - 16) 10 BUN (9 - 20 mg/dL) 23 H Creatinine (0.7 - 1.2 mg/dL) 0.9 Estimated GFR (>60 ml/min) > 60 BUN/Creatinine Ratio (7 - 25 %) 25.6 H Magnesium (1.6 - 2.3 mg/dL) 1.7 Troponin I (<0.11 ng/ml) < 0.01 Hematology CBC w Diff NO MAN DIFF REQ WBC (4.8 - 10.8 /CUMM) 4.8 RBC (4.70 - 6.10 /CUMM) 3.91 L Hgb (14.0 - 18.0 G/DL) 9.5 L Hct (42 - 52 %) 29.4 L MCV (80.0 - 94.0 FL) 75.1 L MCH (27.0 - 31.0 PG) 24.2 L RDW (11.5 - 14.5 %) 20.6 H Plt Count (130 - 400 /CUMM) 142 MPV (7.4 - 10.4 FL) 6.9 L Gran % (42.2 - 75.2 %) 58.1 Lymphocytes % (20.5 - 51.1 %) 28.9 Monocytes % (1.7 - 9.3 %) 12.3 H Eosinophils % (0 - 5 %) 0.2 Basophils % (0.0 - 2.0 %) 0.5 Absolute Granulocytes (1.4 - 6.5 /CUMM) 2.8 Absolute Lymphocytes (1.2 - 3.4 /CUMM) 1.4 Absolute Monocytes (0.10 - 0.60 /CUMM) 0.6 Absolute Eosinophils (0.0 - 0.7 /CUMM) 0 Absolute Basophils (0.0 - 0.2 /CUMM) 0 PUBS MCHC (33.0 - 37.0 G/DL) 32.3 L Urines Urinalysis LIGHT H Urine Color (YEL,AMB,STR) YEL Urine Clarity (CLEAR) CLEAR Urine pH (5.0 - 8.0) 6.0 Ur Specific [place] (1.001 - 1.035) 1.020 Urine Protein (NEG,<30 MG/DL) 30 H Urine Ketones (NEG) NEG Urine Nitrite (NEG) NEG Urine Bilirubin (NEG) NEG Urine Urobilinogen (0.1 - 1.0 EU/dl) 2.0 H Ur Leukocyte Esterase (NEG) NEG Ur Microscopic SEDIMENT EXAMINED Urine RBC (0 - 5 /HPF) 1-3 Urine WBC (0 - 2 /HPF) 1-3 H Ur Epithelial Cells (NONE,FEW) FEW Urine Hemoglobin (NEG) SMALL H Urine Glucose (N MG/DL) NEG 06/30 06/30 2339 2305 Chemistry Sodium (137 - 145 mmol/L) 130 L Potassium (3.5 - 5.1 mmol/L) 3.3 L Chloride (98 - 107 mmol/L) 89 L Carbon Dioxide (22 - 30 mmol/L) 35 H Anion Gap (5 - 16) 7 BUN (9 - 20 mg/dL) 23 H Creatinine (0.7 - 1.2 mg/dL) 0.9 Estimated GFR (>60 ml/min) > 60 BUN/Creatinine Ratio (7 - 25 %) 25.6 H Glucose (65 - 99 mg/dL) 105 H Calcium (8.4 - 10.2 mg/dL) 8.1 L Total Bilirubin (0.2 - 1.3 mg/dL) 1.8 H AST (17 - 59 U/L) 37 ALT (21 - 72 U/L) 24 Alkaline Phosphatase (< 127 U/L) 171 H Troponin I (<0.11 ng/ml) < 0.01 Exx-G-[id number] Pept (<125 pg/mL) 3060 H Total Protein (6.3 - 8.2 g/dL) 8.9 H Albumin (3.5 - 5.0 g/dL) 3.0 L Globulin (1.9 - 4.2 gm/dL) 5.9 H Albumin/Globulin Ratio (1.1 - 2.2 %) 0.5 L Hematology CBC w Diff NO MAN DIFF REQ WBC (4.8 - 10.8 /CUMM) 6.0 RBC (4.70 - 6.10 /CUMM) 4.20 L Hgb (14.0 - 18.0 G/DL) 10.2 L Hct (42 - 52 %) 31.5 L MCV (80.0 - 94.0 FL) 74.9 L MCH (27.0 - 31.0 PG) 24.3 L RDW (11.5 - 14.5 %) 20.4 H Plt Count (130 - 400 /CUMM) 170 MPV (7.4 - 10.4 FL) 7.0 L Gran % (42.2 - 75.2 %) 57.7 Lymphocytes % (20.5 - 51.1 %) 26.4 Monocytes % (1.7 - 9.3 %) 14.8 H Eosinophils % (0 - 5 %) 0.3 Basophils % (0.0 - 2.0 %) 0.8 Absolute Granulocytes (1.4 - 6.5 /CUMM) 3.5 Absolute Lymphocytes (1.2 - 3.4 /CUMM) 1.6 Absolute Monocytes (0.10 - 0.60 /CUMM) 0.9 H Absolute Eosinophils (0.0 - 0.7 /CUMM) 0 Absolute Basophils (0.0 - 0.2 /CUMM) 0.1 PUBS MCHC (33.0 - 37.0 G/DL) 32.4 L Diagnostic Data EKG Results (07/01/2016) sinus rhythm, occasional APC, borderline low voltage frontal leads, left axis deviation, and late precordial transition. Slower rate when compared to previous tracing (06/30/2016). CXR Results (06/30/2016) Heart size is enlarged. There is moderate pulmonary vascular congestion and increased interstitial lung markings of interstitial edema. There are moderate volume right lateral pleural effusions. Other Results Echocardiogram (11/16/2015) Normal size left ventricle. Normal left ventricular wall thickness. Abnormal septal motion consistent with an intraventricular conduction defect. Borderline reduced global left ventricular systolic function. Borderline normal left ventricular ejection fraction estimated at 50-55%. Restrictive filling pattern of the left ventricle for age (stage 3 diastolic dysfunction). Normal right ventricular size and function. Normal right atrial size. Mild left atrial dilatation. Trace mitral regurgitation. Trace tricuspid regurgitation. Right ventricular systolic pressure estimated at 32 mmHg. A small loculated pericardial effusion posterior to the right atrial free wall persists with no invagination of the right atrial free wall. No echocardiographic findings to suggest a hemodynamically significant pericardial effusion. Mildly dilated ascending aorta. Assessment/Plan Assessment/Plan Elderly male recently diagnosed with diabetes mellitus and placed on insulin therapy who presents with progressive shortness of breath, orthopnea, cough, and lower extremity edema with clinical and radiographic evidence of heart failure. The etiology for his heart failure is presently unclear, but although he had normal wall thickness observed on his most recent echocardiogram, he also had evidence of stage III diastolic dysfunction. He also has a recently diagnosed risk equivalent and has multiple risk factors for coronary artery disease which may be responsible for his presentation. Recommendation: * Telemetry admission, follow-up electrocardiogram, follow up troponins. * Continue IV furosemide 40 mg daily and reassess the need for further IV diuresis in the morning after clinical evaluation. * Follow-up CXR in a.m. following diuresis. * Replete potassium and aim to maintain at between 4.0-4.5 mEq per liter. * Replete magnesium and aim to maintain at or above 2.0 mEq per liter. * Hold oral diuretic therapy for the short-term. * Continue on Diovan (valsartan). * Repeat echocardiogram to reassess left ventricular systolic/diastolic function , degree of left ventricular hypertrophy, right ventricular function, pulmonary artery systolic pressure, etc. * Check free T4, TSH, glycosylated hemoglobin A 1C,. * Evaluate anemia. * Note elevated total protein and abnormal albumin/globulin ratio. Consider protein electrophoresis, etc. * Check PSA. * Consider endocrine evaluation for newly diagnosed diabetes mellitus and fine tuning of insulin regimen. * Alert oncology (Tomi Nevarez M.D.) to patient's admission. * Will need a nuclear pharmacologic stress test, once his heart failure is adequately treated, to help exclude an ischemic contribution to his presentation. * DVT prophylaxis. Further recommendations will follow, Thank you. Consult Acknowledgment - Thank you for your consult request.
[2016-07-01 16:50] VITALS: BP 122/66
--- NOTE | 2016-07-01 17:01 | Cons- Endocrinology ---
General Information and HPI Consulting Request Date of Consult: 07/01/16 Requested By: medical team Reason for Consult: management f DM type 2 Source of Information: old records Exam Limitations: unable to give history, language barrier History of Present Illness: 75-year-old male of Eastern ([place]) descent with a history of right sided stroke at age 45 years, GI ulceration secondary to aspirin therapy requiring endoscopic intervention, dyslipidemia, hypertension, hypothyroidism, gastroesophageal reflux disease, rheumatoid arthritis for which he is on methotrexate, prostate carcinoma for which he is s/p hormone and radiation therapy, and previous hemolytic anemia, mild left ventricular dysfunction with EF 50-55% and hx of pericardial tamponade, presented with complaints of progressive shortness of breath. Patient was recently diagnosed with diabetes mellitus and was started on insulin therapy (NovoLog, Levemir). He received Levemr 10 units last night. Now he is on Novolog coverage before meals. His FSGs were 128, 207, 161. Allergies/Medications Allergies: Coded Allergies: aspirin (Mild, ULCER 10/13/15) Home Med List: Enalapril Maleate 20 MG TAB 1 TAB PO DAILY HTN (Reported) Folic Acid 1 MG TABLET 2 MG PO DAILY SUPPLEMENT (Reported) Furosemide 20 MG TAB 1 TAB PO DAILY FLUID OVERLOAD (Reported) Hydrochlorothiazide (Hydrodiuril 25 MG Tab) 25 MG TAB 1 TAB PO DAILY HTN ( Reported) Insulin Aspart (Novolog) 100 UNIT/ML CARTRIDGE (Unknown Dose) SC SLIGHTING DIABETES (Reported) Insulin Detemir (Levemir) 100 UNIT/ML VIAL (Unknown Dose) SC DAILY HS DIABETES (Reported) Levothyroxine Sodium 0.2 MG TAB 1 TAB PO DAILY THYROID (Reported) Methotrexate Sodium (Rheumatrex) 2.5 MG TAB 10 MG PO QTHURS RA (Reported) Review of Systems Review of Systems Constitutional: Reports: see HPI (language barrier). Past History Travel History Traveled to [place] past 21 day No Medical History Blood Transfusion Hx: Yes Neurological: CVA at age of 45 due to hypertension Cardiovascular: CHF (pericardial effusion), hypertension, CARDIOMEGALY Gastrointestinal: upper GI bleed Musculoskeletal: rheumatoid arthritis Endocrine: hypothyroidism Blood Disorders: anemia Cancer(s): prostate cancer Surgical History Surgical History: non-contributory Psychosocial History Where Do You Live? Home Who Do You Live With? spouse, child Services at Home: None Primary Language: Bhutanese Smoking Status: Former Smoker (quick 22 years ago) ETOH Use: denies use Illicit Drug Use: denies illicit drug use Functional Ability ADLs Independent: dressing, eating, toileting, bathing. Ambulation: independent Exam & Diagnostic Data Last 24 Hrs of Vital Signs/I&O Vital Signs Date Time Temp Pulse Resp B/P Pulse O2 O2 Flow FiO2 Ox Delivery Rate 07/01 1650 97.7 102 20 122/66 92 07/01 1029 136/60 07/01 0842 97.5 112 18 136/60 94 Nasal Cannula 07/01 0800 Nasal 2.0L Cannula 07/01 0400 94 Nasal 2.0L Cannula 07/01 0249 97.6 88 18 132/68 95 Nasal 2.0L Cannula 07/01 0152 96.0 91 20 139/76 95 Room Air 06/30 2327 97 Nasal 3.0L Cannula 06/30 2237 98.6 98 20 152/89 91 Room Air Intake & Output 07/01 1600 07/01 0800 07/01 0000 Intake Total 720 100 0 Output Total 1800 450 Balance -1080 -350 0 Intake, Oral 720 100 0 Output, Urine 1800 450 Patient 180 lb 180 lb Weight Physical Exam General Appearance: no apparent distress Neck: normal inspection Respiratory: decreased breath sounds Cardiovascular: regular rate/rhythm Gastrointestinal: soft Extremities: no edema Labs/Thomas Results: Laboratory Tests 07/01 07/01 07/01 1200 1145 0600 Chemistry Hemoglobin A1c Pending Iron (49 - 181 ug/dL) 53 TIBC (261 - 462 ug/dL) 292 Ferritin (17.9 - 464 ng/mL) 99.1 Troponin I (<0.11 ng/ml) < 0.01 Prot Electrophoresis Pending Total Protein (PEP) Pending Albumin % (PEP) Pending Unktw-8-Kurrydciz Pending Mhqqx-7-Jtirvrvzh Pending Cvbc-9-Nddjutti Pending Ckiq-6-Xjjvrnnz Pending Gamma Globulins Pending Abnorm Protein Band 1 Pending Abnorm Protein Band 2 Pending Abnorm Protein Band 3 Pending Total PSA (0.00 - 4.00 ng/mL) 0.44 TSH (0.270 - 4.200 uIU/mL) 3.820 Free T4 (0.78 - 2.44 ng/dL) 2.57 H Immunology Immunoelectrophoresis Pending 07/01 06/30 0525 2345 Chemistry Sodium (137 - 145 mmol/L) 132 L Potassium (3.5 - 5.1 mmol/L) 3.4 L Chloride (98 - 107 mmol/L) 90 L Carbon Dioxide (22 - 30 mmol/L) 32 H Anion Gap (5 - 16) 10 BUN (9 - 20 mg/dL) 23 H Creatinine (0.7 - 1.2 mg/dL) 0.9 Estimated GFR (>60 ml/min) > 60 BUN/Creatinine Ratio (7 - 25 %) 25.6 H Magnesium (1.6 - 2.3 mg/dL) 1.7 Troponin I (<0.11 ng/ml) < 0.01 Hematology CBC w Diff NO MAN DIFF REQ WBC (4.8 - 10.8 /CUMM) 4.8 RBC (4.70 - 6.10 /CUMM) 3.91 L Hgb (14.0 - 18.0 G/DL) 9.5 L Hct (42 - 52 %) 29.4 L MCV (80.0 - 94.0 FL) 75.1 L MCH (27.0 - 31.0 PG) 24.2 L RDW (11.5 - 14.5 %) 20.6 H Plt Count (130 - 400 /CUMM) 142 MPV (7.4 - 10.4 FL) 6.9 L Gran % (42.2 - 75.2 %) 58.1 Lymphocytes % (20.5 - 51.1 %) 28.9 Monocytes % (1.7 - 9.3 %) 12.3 H Eosinophils % (0 - 5 %) 0.2 Basophils % (0.0 - 2.0 %) 0.5 Absolute Granulocytes (1.4 - 6.5 /CUMM) 2.8 Absolute Lymphocytes (1.2 - 3.4 /CUMM) 1.4 Absolute Monocytes (0.10 - 0.60 /CUMM) 0.6 Absolute Eosinophils (0.0 - 0.7 /CUMM) 0 Absolute Basophils (0.0 - 0.2 /CUMM) 0 PUBS MCHC (33.0 - 37.0 G/DL) 32.3 L Miscellaneous Ref Lab Test Result Pending Urines Urinalysis LIGHT H Urine Color (YEL,AMB,STR) YEL Urine Clarity (CLEAR) CLEAR Urine pH (5.0 - 8.0) 6.0 Ur Specific [place] (1.001 - 1.035) 1.020 Urine Protein (NEG,<30 MG/DL) 30 H Urine Ketones (NEG) NEG Urine Nitrite (NEG) NEG Urine Bilirubin (NEG) NEG Urine Urobilinogen (0.1 - 1.0 EU/dl) 2.0 H Ur Leukocyte Esterase (NEG) NEG Ur Microscopic SEDIMENT EXAMINED Urine RBC (0 - 5 /HPF) 1-3 Urine WBC (0 - 2 /HPF) 1-3 H Ur Epithelial Cells (NONE,FEW) FEW Urine Hemoglobin (NEG) SMALL H Urine Glucose (N MG/DL) NEG 06/30 06/30 2339 2305 Chemistry Sodium (137 - 145 mmol/L) 130 L Potassium (3.5 - 5.1 mmol/L) 3.3 L Chloride (98 - 107 mmol/L) 89 L Carbon Dioxide (22 - 30 mmol/L) 35 H Anion Gap (5 - 16) 7 BUN (9 - 20 mg/dL) 23 H Creatinine (0.7 - 1.2 mg/dL) 0.9 Estimated GFR (>60 ml/min) > 60 BUN/Creatinine Ratio (7 - 25 %) 25.6 H Glucose (65 - 99 mg/dL) 105 H Calcium (8.4 - 10.2 mg/dL) 8.1 L Total Bilirubin (0.2 - 1.3 mg/dL) 1.8 H AST (17 - 59 U/L) 37 ALT (21 - 72 U/L) 24 Alkaline Phosphatase (< 127 U/L) 171 H Troponin I (<0.11 ng/ml) < 0.01 [id number]-E-Sztkehvygsw Pept (<125 pg/mL) 3060 H Total Protein (6.3 - 8.2 g/dL) 8.9 H Albumin (3.5 - 5.0 g/dL) 3.0 L Globulin (1.9 - 4.2 gm/dL) 5.9 H Albumin/Globulin Ratio (1.1 - 2.2 %) 0.5 L Hematology CBC w Diff NO MAN DIFF REQ WBC (4.8 - 10.8 /CUMM) 6.0 RBC (4.70 - 6.10 /CUMM) 4.20 L Hgb (14.0 - 18.0 G/DL) 10.2 L Hct (42 - 52 %) 31.5 L MCV (80.0 - 94.0 FL) 74.9 L MCH (27.0 - 31.0 PG) 24.3 L RDW (11.5 - 14.5 %) 20.4 H Plt Count (130 - 400 /CUMM) 170 MPV (7.4 - 10.4 FL) 7.0 L Gran % (42.2 - 75.2 %) 57.7 Lymphocytes % (20.5 - 51.1 %) 26.4 Monocytes % (1.7 - 9.3 %) 14.8 H Eosinophils % (0 - 5 %) 0.3 Basophils % (0.0 - 2.0 %) 0.8 Absolute Granulocytes (1.4 - 6.5 /CUMM) 3.5 Absolute Lymphocytes (1.2 - 3.4 /CUMM) 1.6 Absolute Monocytes (0.10 - 0.60 /CUMM) 0.9 H Absolute Eosinophils (0.0 - 0.7 /CUMM) 0 Absolute Basophils (0.0 - 0.2 /CUMM) 0.1 PUBS MCHC (33.0 - 37.0 G/DL) 32.4 L Assessment/Plan Assessment/Plan 75 y/o male with complicated past medical history presented with worsening SOB. DM management: 1. decrease Levemir to 6 units daily at bedtime; 2. snack if FSG is < 140 at bedtime; 3. adjust Novolog coverage before meals and Novolog coverage at bedtime-- detail see the inpatient DM orders; 4. monitor FSGs and electrolytes. will follow. Inpatient Diabetes Orders Before Each Meal: Bolus Insulin: Novolog < 80 mg/dl: no coverage 80-100 mg/dl: no coverage 101-120 mg/dl: no coverage 121-150 mg/dl: 2 units 151-200 mg/dl: 3 units 201-250 mg/dl: 4 units 251-300 mg/dl: 5 units 301-350 mg/dl: 6 units 351-400 mg/dl: 7 units > 400 mg/dl: 8 units Bedtime: Bolus Insulin: Novolog < 80 mg/dl: no coverage 80-100 mg/dl: no coverage 101-120 mg/dl: no coverage 121-150 mg/dl: no coverage 151-200 mg/dl: no coverage 201-250 mg/dl: no coverage 251-300 mg/dl: 2 units 301-350 mg/dl: 3 units 351-400 mg/dl: 4 units > 400 mg/dl: 5 units Consult Acknowledgment - Thank you for your consult request.
--- NOTE | 2016-07-01 17:18 | PN- Att Addend ---
Attending Addendum Attending Brief Note 75M PMH DM currently on insulin, HTN, RA on methotrexate, hypothyroidism, prostate cancer status post radiation and hormonal treatment, pericardial effusion with tamponade in August 2015 treated with pericardial window, HFpEF with restrictive filling pattern admitted for 1 week of shortness of breath and orthopnea with CXR showing acute CHF. Patient is actively diuresing on IV Lasix and doing well. Of note, patient has elevated protein with low albumin concerning for paraproteinemia. He denies any systemic symptoms for malignancy and denies back pain. AFVSS NAD NCAT Supple RRR Bibasilar crackles Soft, NTND 1+ b/l pitting edema to knees A&Ox3 no focal deficits Laboratory Tests 07/01/16 1200: Prot Electrophoresis Pending, Total Protein (PEP) Pending, Albumin % (PEP) Pending, Jdogu-5-Pmccufmzg Pending, Tkvyx-0-Ckqswkkic Pending, Lwgw-0-Hmrdcjzj Pending, Lufl-6-Swqezunl Pending, Gamma Globulins Pending, Abnorm Protein Band 1 Pending, Abnorm Protein Band 2 Pending, Abnorm Protein Band 3 Pending, Immunoelectrophoresis Pending 07/01/16 1145: Iron 53, TIBC 292, Ferritin 99.1, Troponin I < 0.01, Total PSA 0.44, TSH 3.820, Free T4 2.57 H 07/01/16 0600: Hemoglobin A1c Pending 07/01/16 0525: Anion Gap 10, Estimated GFR > 60, BUN/Creatinine Ratio 25.6 H, Magnesium 1.7, Troponin I < 0.01, CBC w Diff NO MAN DIFF REQ, RBC 3.91 L, MCV 75.1 L, MCH 24.2 L, RDW 20.6 H, MPV 6.9 L, Gran % 58.1, Lymphocytes % 28.9, Monocytes % 12.3 H, Eosinophils % 0.2, Basophils % 0.5, Absolute Granulocytes 2.8, Absolute Lymphocytes 1.4, Absolute Monocytes 0.6, Absolute Eosinophils 0, Absolute Basophils 0, PUBS MCHC 32.3 L 06/30/16 2345: Ref Lab Test Result Pending, Urinalysis LIGHT H, Urine Color YEL, Urine Clarity CLEAR, Urine pH 6.0, Ur Specific [place] 1.020, Urine Protein 30 H, Urine Ketones NEG, Urine Nitrite NEG, Urine Bilirubin NEG, Urine Urobilinogen 2.0 H, Ur Leukocyte Esterase NEG, Ur Microscopic SEDIMENT EXAMINED, Urine RBC 1-3, Urine WBC 1-3 H, Ur Epithelial Cells FEW, Urine Hemoglobin SMALL H, Urine Glucose NEG 06/30/16 2339: Anion Gap 7, Estimated GFR > 60, BUN/Creatinine Ratio 25.6 H, Glucose 105 H, Calcium 8.1 L, Total Bilirubin 1.8 H, AST 37, ALT 24, Alkaline Phosphatase 171 H, Troponin I < 0.01, Bqe-U-Hhxfznozlkm Pept 3060 H, Total Protein 8.9 H, Albumin 3.0 L, Globulin 5.9 H, Albumin/Globulin Ratio 0.5 L 06/30/16 2305: CBC w Diff NO MAN DIFF REQ, RBC 4.20 L, MCV 74.9 L, MCH 24.3 L, RDW 20.4 H, MPV 7.0 L, Gran % 57.7, Lymphocytes % 26.4, Monocytes % 14.8 H, Eosinophils % 0.3, Basophils % 0.8, Absolute Granulocytes 3.5, Absolute Lymphocytes 1.6, Absolute Monocytes 0.9 H, Absolute Eosinophils 0, Absolute Basophils 0.1, PUBS MCHC 32.4 L Vital Signs Date Time Temp Pulse Resp B/P Pulse O2 O2 Flow FiO2 Ox Delivery Rate 07/01 1650 97.7 102 20 122/66 92 07/01 1029 136/60 07/01 0842 97.5 112 18 136/60 94 Nasal Cannula 07/01 0800 Nasal 2.0L Cannula 07/01 0400 94 Nasal 2.0L Cannula 07/01 0249 97.6 88 18 132/68 95 Nasal 2.0L Cannula 07/01 0152 96.0 91 20 139/76 95 Room Air 06/30 2327 97 Nasal 3.0L Cannula 06/307 98.6 98 20 152/89 91 Room Air Plan - Continue on telemetry for CHF - Continue IV Lasix - I/O, daily weights - Follow cardiology recommendations - Repeat echocardiogram - Obtain SPEP/UPEP, immunofixation - Outpatient hematology referral - Continue home mediations - DVT PPx
--- NOTE | 2016-07-01 23:04 | Event Note ---
Event Note Event Note: Updates (07/01/2016): * Patient was seen by training generalist Dr. Chapman who recommended continuing furosemide 40 mg IV QD and repeating CXR in the morning. * HCTZ and enalapril were held. * Iron studies, free T4, TSH and HbA1c were ordered per Dr. Chapman's recs. * It was noted that patient has an elevated globulin gap of 5.9. SPEP, UPEP and immunofixation testing was ordered. * Endocrinology was consulted for the management of newly diagnosed diabetes. Patient was placed on Levemir 6 U SQ BID as well as Novolog SSI TIDAC and QHS per Dr. Hutchison's recs. * Troponins x3 were negative. Serial EKGs showed no ST-T wave abnormalities. * Patient's oncologist Dr. Nevarez was alerted of patient's admission. * Repeat ECHO was ordered to assess the degree of cardiac dysfunction.
[2016-07-01 23:32] VITALS: BP 110/68
[2016-07-02 08:00] VITALS: BP 120/70
[2016-07-02 08:03] LABS: ABSOLUTE BASOPHIL COUNT 0 /CUMM (0.0-0.2); ABSOLUTE EOSINOPHIL COUNT 0 /CUMM (0.0-0.7); ABSOLUTE GRANULOCYTE CT 2.3 /CUMM (1.4-6.5); ABSOLUTE LYMPH COUNT 1.4 /CUMM (1.2-3.4); ABSOLUTE MONOCYTE COUNT 0.3 /CUMM (0.10-0.60); BASOPHIL % 0.6 % (0.0-2.0); EOSINOPHIL % 0.4 % (0-5); GRANULOCYTE % 56.8 % (42.2-75.2); HEMATOCRIT 27.8 % (42-52); MEAN CORPUSCULAR HGB 24.6 PG (27.0-31.0); MEAN CORPUSCULAR HGB CONC 32.9 G/DL (33.0-37.0); MEAN CORPUSCULAR VOLUME 74.9 FL (80.0-94.0); MEAN PLATELET VOLUME 6.7 FL (7.4-10.4); PLATELET COUNT 145 /CUMM (130-400); RBC DISTRIBUTION WIDTH 20.4 % (11.5-14.5); RED BLOOD CELL CT 3.71 /CUMM (4.70-6.10); WHITE BLOOD CELL COUNT 4.1 /CUMM (4.8-10.8)
--- NOTE | 2016-07-02 08:19 | PN- Housestaff ---
YOVANNY TELLES,[facility] 07/02/16 0818: Subjective Follow-up For: CHF R/p Effusions/Tamponade Hyponatremia Tele-Events Since Last Visit: Sinus rhythm, sinus tachycardia, 82 to 102 OH interval 0.24 Subjective: The patient was seen and examined this morning. He is resting comfortably in bed. He son Alexander was able to help with part of the translation due to the language barrier. Patient reports that he feels better although slightly feels cold this a.m. He reports that he shortness of breath is better and bilateral leg edema has markedly improved. Patient does report cough. States that cough is nonproductive. Patient states that he slept well. Patient denies any complaints at this time. The patient denies any fever, chills, nausea, vomiting Review of Systems Constitutional: Reports: see HPI. Denies: chills, diaphoresis, malaise. Objective Last 24 Hrs of Vital Signs/I&O Vital Signs Date Time Temp Pulse Resp B/P Pulse O2 O2 Flow FiO2 Ox Delivery Rate 07/02 1600 97 Nasal 2.0L Cannula 07/02 1557 98.2 97 18 112/58 94 07/02 1556 97 112/58 07/02 1315 136 130/60 07/02 1040 109 128/70 07/02 0800 Nasal 2.0L Cannula 07/02 08 98.0 90 20 120/70 95 Nasal 2.5L Cannula 07/02 0000 95 Nasal 2.0L Cannula 07/01 2332 97.8 88 20 110/68 95 Nasal Cannula Intake & Output 07/02 1600 07/02 0800 07/02 0000 Intake Total 560 240 480 Output Total 900 500 500 Balance -340 -260 -20 Intake, Oral 560 240 480 Number 1 Bowel Movements Output, Urine 900 500 500 Patient 77.564 kg Weight Physical Exam General Appearance: Alert, Oriented X3, Cooperative, No Acute Distress Lymphatic: Axillary nl Cardiovascular: Regular Rate, Normal S1, Normal S2 Lungs: Right Expiratory Crackles Abdomen: Normal Bowel Sounds, Soft, No Tenderness Neurological: Strength at 5/5 X4 Ext Extremities: Edema 1+ Current Medications: Current Medications Sig/Lenny Start time Last Medication Dose Route Stop Time Status Admin Acetaminophen 650 MG Q6P PRN 07/01 0230 AC PO Docusate Sodium 100 MG DAILY NEEDED PRN 07/01 2330 AC 07/02 PO 0109 Enoxaparin Sodium 40 MG DAILY 07/01 1000 AC 07/02 SC 1038 Furosemide 40 MG DAILY 07/01 1000 AC 07/02 IV 1040 Insulin Aspart 0 TIDAC/HS 07/01 2100 AC SC Insulin Detemir 6 UNITS AT BEDTIME 07/01 2200 DC 07/01 SC 2102 Levothyroxine Sodium 0.2 MG DAILY AC 07/01 0700 AC 07/02 PO 0620 Lisinopril 20 MG DAILY 07/01 1000 AC 07/02 PO 1040 Methotrexate 5 MG QTHURS 07/07 1000 AC PO Metoprolol Tartrate 12.5 MG BID 07/02 1437 AC 07/02 PO 1556 Oxycodone HCl 5 MG Q6P PRN 07/01 0230 AC PO Repaglinide 0.5 MG 0800,1200,1700 07/02 1215 AC 07/02 PO 1748 Last 24 Hrs of Lab/Thomas Results Last 24 Hrs of Labs/Mics: Laboratory Tests 07/02/16 0713: Anion Gap 5, Estimated GFR 59 L, BUN/Creatinine Ratio 23.3, Magnesium 1.8 07/02/16 0605: CBC w Diff NO MAN DIFF REQ, RBC 3.71 L, MCV 74.9 L, MCH 24.6 L, RDW 20.4 H, MPV 6.7 L, Gran % 56.8, Lymphocytes % 34.4, Monocytes % 7.8, Eosinophils % 0.4, Basophils % 0.6, Absolute Granulocytes 2.3, Absolute Lymphocytes 1.4, Absolute Monocytes 0.3, Absolute Eosinophils 0, Absolute Basophils 0, PUBS MCHC 32.9 L Orders Miscellaneous Findings: SERVICE DATE: 07/02/16 EXAM TYPE: RAD - XRY-PORTABLE CHEST XRAY EXAMINATION: XR PORTABLE CHEST CLINICAL INFORMATION: Exacerbation of congestive heart failure. Evaluate for volume overload. COMPARISON: CXR from 04/21/2016 and 06/30/2016 TECHNIQUE: Portable view of the chest was obtained. FINDINGS: Cardiac silhouette is moderately enlarged and pulmonary vessels remain congested. There is persistent peribronchial interstitial thickening suggestive of edema involving the axial interstitium. Small amount of fluid is present within the minor fissure and the costophrenic sulci remain blunted from small pleural effusions. The pleural effusions appear slightly decreased compared to 06/30/2016. There is atherosclerotic calcification of the aorta. No acute skeletal findings. IMPRESSION: Cardiomegaly and persistent congestive heart failure. Small pleural effusions appear slightly decreased in size compared to 06/30/2016. DICTATED BY: KATE WEISS MD Assessment/Plan Assessment: Patient is a 75-year-old gentleman with past medical history significant for rheumatoid arthritis (on methotrexate), hypothyroidism, HTN, prostate cancer s/p radiotherapy and hormonal suppression therapy, CHF with stage III diastolic dysfunction, last admitted in August 2015 for pericardial effusion, who presented to the ED with 1 week of worsening weakness, pedal edema, orthopnea, coughing, and shortness of breath. Vitals vital signs in the ED showed T of 98.6, pulse rate 98, respiratory rate 20 saturating in room air, blood pressure 152/89. Lab work [place] 3060 Chest x-ray reported congestive heart failure Problem list and plan: CHF exacerbation History of CHF with stage III diastolic dysfunction, on 20 mg by mouth Lasix at home and follows up with Dr. Chapman last seen a month ago. Last echo done in . Received 40 mg IV Lasix in the ED We continued patient on IV Lasix 40 mg daily. Depending on status of patient's clinical condition tomorrow IV Lasix dose can be decreased. BEP in a.m. Strict I's and O's and daily weight #Tachycardia Patient was noted to be tachycardic and metoprolol 12.5 mg twice a day was started. History of pericardial effusion Admitted in August 2015 for pericardial effusion, pericardial window was placed. Chest x-ray done this morning show slightly decreased pleural effusions decreased in size compared to previous. Type 2 diabetes Patient was diagnosed about a week ago and was started on insulin by the PCP, patient is taking Levemir 10 units at bedtime and Humalog sliding scale, blood sugars have been below 100 in the morning and between 130 to 170s to 100 today. BS in the ED 94. Held Levemir and started on low dose NovoLog sliding scale from the morning Accu-Cheks every 4 hours Patient started on 0.5 Prandin 3 times a day. We stopped the patient is Levemir. For blood sugars greater than 250 we can administer NovoLog coverage as a backup. Hemoglobin A1c was 10.3. Rheumatoid arthritis Continue methotrexate Hypothyroidism Continue levothyroxine Hypertension Continue valsartan and hydrochlorothiazide, blood pressure well controlled 112/ 58 DVT prophylaxis Subcutaneous Lovenox FULL CODE Problem List: 1. Carcinoma of prostate 2. Essential hypertension 3. GI BLEED 4. Hyperlipidemia 5. Hypothyroidism 6. Rheumatoid arthritis 7. Pericardial effusion 8. Full code status 9. Pericardial effusion, acute 10. Hypotension 11. XI (acute kidney injury) 12. Aortic aneurysm, intrathoracic 13. Pulmonary edema 14. Hyponatremia 15. CHF exacerbation Pain Ratin Pain Location: No Pain reported Pain Goal: Remain pain free Pain Plan: Tylenol PRN Tomorrow's Labs & Rationales: BEP monitor electrolytes Consulting Request: Consulting Specialty: Endocrinology Consulting Physician: Dr. Morrow Reason for Consult: recently diagnosed diabetes and started on insulin therapy BRAYDON SHAH MD 07/02/16 1037: Attending MD Review Statement Attending Statement Attending MD Statement: examined this patient, discuss w/resident/PA/UNDERCOVER AGENT, agreed w/resident/PA/UNDERCOVER AGENT, reviewed EMR data (avail), discussed with nursing Attending Assessment/Plan: Patient is on 40 mg of Lasix IV for acute heart failure with preserved EF/ diastolic dysfunction. He has underlying diabetes, hypertension, prostate CA and rheumatoid arthritis on methotrexate. He also is noted to have a high total protein and high globulin level with a low albumin and work up for a paraproteinemia is in process. His bicarbonate is rising so we'll check a repeat chest x-ray today and see if we can back off on the dose of the IV Lasix.
--- NOTE | 2016-07-02 08:41 | ECHOCARDIOGRAM REPORT ---
NINA NELSON Age: 75 : 1940 Gender: M Exam Date: 07/01/2016 09:19 Exam Location: [address] Ht (in): 66 Wt (lb): 180 BSA: 1.97 BP: 136 / 60 Ordering Physician: TOMMY WASHINGTON MD Referring Physician: TOMMY WASHINGTON MD Technologist: Shen Hernandez [facility] Room Number: 179-2 Indications: HEART FAILURE Rhythm: Sinus Technical Quality: technically difficult study FINDINGS Left Ventricle Normal left ventricular size, wall thickness and systolic function with mild anterior wall hypokinesis. Diastolic filling pattern is consistent with restrictive hemodynamics. The ejection fraction is visually estimated at 55%. Right Ventricle The right ventricle is normal in size and function. Right Atrium The right atrium is mildly enlarged. Left Atrium The left atrium is moderately enlarged. The interatrial septum is intact. Mitral Valve The mitral valve is normal in structure and function. There is no mitral regurgitation. Aortic Valve Structurally normal aortic valve without significant sclerosis or stenosis. There is no aortic regurgitation. Tricuspid Valve The tricuspid valve is normal in structure and function. There is trace tricuspid regurgitation. Pulmonary artery systolic pressure is mildly increased to 38mmHg. Pulmonic Valve Structurally normal pulmonic valve. There is no pulmonic regurgitation. Pericardium Normal pericardium without effusion. No pleural effusion. Great Vessels Normal aortic root dimension. The aortic arch and great vessels are well seen and are normal. CONCLUSIONS 1. Normal EF of 55% with mild anterior wall hypokinesis and a restrictive filling pattern. 2. Mild right atrial and moderate left atrial enlargment. 3. Trace tricuspid regurgitation. Kj Montes M.D. (Electronically Signed) Final Date: 02 July 2016 08:40 MEASUREMENTS (Male / Female) Normal Values 2D ECHO LV Diastolic Diameter PLAX 5.5 cm 4.2 - 5.9 / 3.9 - 5.3 cm LV Systolic Diameter PLAX 4.5 cm 2.1 - 4.0 cm LV Fractional Shortening PLAX 18.2 % 25 - 46 % LV Ejection Fraction 2D Teich 37.3 % IVS Diastolic Thickness 0.9 cm LVPW Diastolic Thickness 1.1 cm LV Relative Wall Thickness 0.4 RV Internal Dim ED PLAX 2.8 cm 1.9 - 3.8 cm LVOT Diameter 2.1 cm Aortic Root Diameter 3.4 cm LA Systolic Diameter LX 4.5 cm 3.0 - 4.0 / 2.7 - 3.8 cm DOPPLER AV Peak Velocity 154.0 cm/s AV Peak Gradient 9.5 mmHg AV Mean Velocity 96.2 cm/s AV Mean Gradient 4.0 mmHg AV Velocity Time Integral 26.1 cm LVOT Peak Velocity 88.0 cm/s LVOT Peak Gradient 3.1 mmHg LVOT Mean Velocity 53.3 cm/s LVOT Mean Gradient 1.0 mmHg LVOT Velocity Time Integral 15.9 cm LVOT Stroke Volume 55.1 cm AV Area Cont Eq vti 2.1 cm AV Area Cont Eq pk 2.0 cm MV Peak Velocity 171.0 cm/s MV Peak Gradient 11.7 mmHg MV Mean Velocity 77.4 cm/s MV Mean Gradient 3.0 mmHg Mitral E Point Velocity 146.0 cm/s Mitral A Point Velocity 38.0 cm/s Mitral E to A Ratio 3.8 MV PHT Velocity 171.0 cm/s MV Deceleration [place] 948.0 cm/s MV Pressure Half Time 54.1 ms MV Area PHT 4.1 cm MV Deceleration Time 158.0 ms TR Peak Velocity 266.0 cm/s TR Peak Gradient 28.3 mmHg Right Atrial Pressure 10.0 mmHg Pulmonary Artery Systolic Pressu 38.3 mmHg Right Ventricular Systolic Press 38.3 mmHg PV Peak Velocity 123.0 cm/s PV Peak Gradient 6.1 mmHg PV Mean Velocity 82.6 cm/s PV Mean Gradient 3.0 mmHg PV Velocity Time Integral 19.2 cm LV E' Lateral Velocity 6.4 cm/s Mitral E to LV E' Lateral Ratio 22.7 LV E' Septal Velocity 7.4 cm/s Mitral E to LV E' Septal Ratio 19.7
--- NOTE | 2016-07-02 11:38 | RADIOLOGY REPORT ---
EXAMINATION: XR PORTABLE CHEST CLINICAL INFORMATION: Exacerbation of congestive heart failure. Evaluate for volume overload. COMPARISON: CXR from 04/21/2016 and 06/30/2016 TECHNIQUE: Portable view of the chest was obtained. FINDINGS: Cardiac silhouette is moderately enlarged and pulmonary vessels remain congested. There is persistent peribronchial interstitial thickening suggestive of edema involving the axial interstitium. Small amount of fluid is present within the minor fissure and the costophrenic sulci remain blunted from small pleural effusions. The pleural effusions appear slightly decreased compared to 06/30/2016. There is atherosclerotic calcification of the aorta. No acute skeletal findings. IMPRESSION: Cardiomegaly and persistent congestive heart failure. Small pleural effusions appear slightly decreased in size compared to 06/30/2016.
--- NOTE | 2016-07-02 12:13 | PN- Diabetes ---
Assessment/Plan Assessment: 75 y/o male with complicated past medical history presented with worsening SOB. He was put on Levemir 6 units daily at bedtime, Novolog coverage before meals and Novolog coverage at bedtime. His FSGs were 161, 192 and 107. Plan: 1. stop Levemir; 2. start prandin 0.5 mg right before meals x 3 times a day; hold prandin if patient skips meal; 3. Novolog coverage as back up if FSG is > 250; detail see the insulin order. 4. monitor FSGs. The above plan has been discussed with his family. Inpatient Diabetes Orders Before Each Meal: Bolus Insulin: Novolog < 80 mg/dl: no coverage 80-100 mg/dl: no coverage 101-120 mg/dl: no coverage 121-150 mg/dl: no coverage 151-200 mg/dl: no coverage 201-250 mg/dl: no coverage 251-300 mg/dl: 2 units 301-350 mg/dl: 3 units 351-400 mg/dl: 4 units > 400 mg/dl: 5 units Subjective Subjective: He appears weak. Objective Last 24 Hrs of Vital Signs/I&O Vital Signs Date Time Temp Pulse Resp B/P Pulse O2 O2 Flow FiO2 Ox Delivery Rate 07/02 1040 109 128/70 07/02 0800 Nasal 2.0L Cannula 07/02 08 98.0 90 20 120/70 95 Nasal 2.5L Cannula 07/02 0000 95 Nasal 2.0L Cannula 07/01 2332 97.8 88 20 110/68 95 Nasal Cannula 07/01 1650 97.7 102 20 122/66 92 07/01 1600 Nasal 2.0L Cannula Intake & Output 07/02 1600 07/02 0800 07/02 0000 Intake Total 240 480 Output Total 500 500 Balance -260 -20 Intake, Oral 240 480 Output, Urine 500 500 Patient 171 lb Weight Findings Pertinent Lab/Thomas Results: Laboratory Tests 07/02 07/02 0713 0605 Chemistry Sodium (137 - 145 mmol/L) 135 L Potassium (3.5 - 5.1 mmol/L) 4.0 Chloride (98 - 107 mmol/L) 91 L Carbon Dioxide (22 - 30 mmol/L) 39 H Anion Gap (5 - 16) 5 BUN (9 - 20 mg/dL) 28 H Creatinine (0.7 - 1.2 mg/dL) 1.2 Estimated GFR (>60 ml/min) 59 L BUN/Creatinine Ratio (7 - 25 %) 23.3 Magnesium (1.6 - 2.3 mg/dL) 1.8 Hematology CBC w Diff NO MAN DIFF REQ WBC (4.8 - 10.8 /CUMM) 4.1 L RBC (4.70 - 6.10 /CUMM) 3.71 L Hgb (14.0 - 18.0 G/DL) 9.1 L Hct (42 - 52 %) 27.8 L MCV (80.0 - 94.0 FL) 74.9 L MCH (27.0 - 31.0 PG) 24.6 L RDW (11.5 - 14.5 %) 20.4 H Plt Count (130 - 400 /CUMM) 145 MPV (7.4 - 10.4 FL) 6.7 L Gran % (42.2 - 75.2 %) 56.8 Lymphocytes % (20.5 - 51.1 %) 34.4 Monocytes % (1.7 - 9.3 %) 7.8 Eosinophils % (0 - 5 %) 0.4 Basophils % (0.0 - 2.0 %) 0.6 Absolute Granulocytes (1.4 - 6.5 /CUMM) 2.3 Absolute Lymphocytes (1.2 - 3.4 /CUMM) 1.4 Absolute Monocytes (0.10 - 0.60 /CUMM) 0.3 Absolute Eosinophils (0.0 - 0.7 /CUMM) 0 Absolute Basophils (0.0 - 0.2 /CUMM) 0 PUBS MCHC (33.0 - 37.0 G/DL) 32.9 L
[2016-07-02 13:15] VITALS: BP 130/60
--- NOTE | 2016-07-02 13:18 | NUR ---
NOTIFIED WIRE INSULATOR DR HAIRSTON #[id number] ALEXANDER #[id number] OF HEART RATE IN 130'S. PATIENT REPORTS NO COMPLAINTS OF CHEST PAIN, ON 2L NC. PER RESIDENT DR ALEXANDER #[id number] OBTAIN AN EKG. WILL CONTINUE TO MONITOR.
--- NOTE | 2016-07-02 14:14 | PN- Cardiology ---
Subjective Subjective: The patient complains of fatigue. No chest pain. Shortness of breath is improving. He is noted to be sinus tachycardia in the 120s on telemetry. Objective Vital Signs and I&Os Vital Signs Date Time Temp Pulse Resp B/P Pulse O2 O2 Flow FiO2 Ox Delivery Rate 07/02 1315 136 130/60 07/02 1040 109 128/70 07/02 0800 Nasal 2.0L Cannula 07/02 0800 98.0 90 20 120/70 95 Nasal 2.5L Cannula 07/02 0000 95 Nasal 2.0L Cannula 07/01 2332 97.8 88 20 110/68 95 Nasal Cannula 07/01 1650 97.7 102 20 122/66 92 07/01 1600 Nasal 2.0L Cannula Intake & Output 07/02 1600 07/02 0800 07/02 0000 07/01 1600 07/01 0800 07/01 0000 Intake Total 240 480 720 100 0 Output Total 200 320 325 9572 450 Balance -200 - -350 0 Intake, Oral 240 480 720 100 0 Number 1 Bowel Movements Output, Urine 200 327 633 4709 450 Patient 171 lb 180 lb 180 lb Weight Physical Exam: Gen: NAD HEENT: normal Lungs: Basilar rales, normal resp. effort Heart: RRR, S1, S2, no murmurs Abdomen: Soft, nontender, no masses Extremities: 1+ edema Neuro: Alert and oriented x 3, cranial nerves intact Current Medications: Current Medications Sig/Lenny Start time Last Medication Dose Route Stop Time Status Admin Acetaminophen 650 MG Q6P PRN 07/01 0230 AC PO Docusate Sodium 100 MG DAILY NEEDED PRN 07/01 2330 AC 07/02 PO 0109 Enoxaparin Sodium 40 MG DAILY 07/01 1000 AC 07/02 SC 1038 Furosemide 40 MG DAILY 07/01 1000 AC 07/02 IV 1040 Insulin Aspart 0 TIDAC/HS 07/01 2100 AC SC Insulin Aspart 3 UNITS ONCE ONE 07/01 1845 DC 07/01 SC 07/01 184 1846 Insulin Aspart 0 TIDAC 07/01 0800 DC 07/01 SC 1203 Insulin Detemir 6 UNITS AT BEDTIME 07/01 2200 DC 07/01 SC 2102 Levothyroxine Sodium 0.2 MG DAILY AC 07/01 0700 AC 07/02 PO 0620 Lisinopril 20 MG DAILY 12/30 1000 AC 07/02 PO 1040 Methotrexate 5 MG QTHURS 07/07 1000 AC PO Oxycodone HCl 5 MG Q6P PRN 07/01 0230 AC PO Repaglinide 0.5 MG 0800,1200,1700 07/02 1215 AC 07/02 PO 1306 Results Last 48 Hrs of Labs/Mics: Laboratory Tests 07/02/16 0713: Anion Gap 5, Estimated GFR 59 L, BUN/Creatinine Ratio 23.3, Magnesium 1.8 07/02/16 0605: CBC w Diff NO MAN DIFF REQ, RBC 3.71 L, MCV 74.9 L, MCH 24.6 L, RDW 20.4 H, MPV 6.7 L, Gran % 56.8, Lymphocytes % 34.4, Monocytes % 7.8, Eosinophils % 0.4, Basophils % 0.6, Absolute Granulocytes 2.3, Absolute Lymphocytes 1.4, Absolute Monocytes 0.3, Absolute Eosinophils 0, Absolute Basophils 0, PUBS MCHC 32.9 L 07/01/16 1200: Prot Electrophoresis Pending, Total Protein (PEP) Pending, Albumin % (PEP) Pending, [id number] Pending, [id number] Pending, Zzal-[id number] Pending, Felo-[id number] Pending, Gamma Globulins Pending, Abnorm Protein Band 1 Pending, Abnorm Protein Band 2 Pending, Abnorm Protein Band 3 Pending, Immunoelectrophoresis Pending 07/01/16 1145: Iron 53, TIBC 292, Ferritin 99.1, Troponin I < 0.01, Total PSA 0.44, TSH 3.820, Free T4 2.57 H 07/01/16 0600: Hemoglobin A1c 10.3 H 07/01/16 0525: Anion Gap 10, Estimated GFR > 60, BUN/Creatinine Ratio 25.6 H, Magnesium 1.7, Troponin I < 0.01, CBC w Diff NO MAN DIFF REQ, RBC 3.91 L, MCV 75.1 L, MCH 24.2 L, RDW 20.6 H, MPV 6.9 L, Gran % 58.1, Lymphocytes % 28.9, Monocytes % 12.3 H, Eosinophils % 0.2, Basophils % 0.5, Absolute Granulocytes 2.8, Absolute Lymphocytes 1.4, Absolute Monocytes 0.6, Absolute Eosinophils 0, Absolute Basophils 0, PUBS MCHC 32.3 L 06/30/16 2345: Ref Lab Test Result Pending, Urinalysis LIGHT H, Urine Color YEL, Urine Clarity CLEAR, Urine pH 6.0, Ur Specific [place] 1.020, Urine Protein 30 H, Urine Ketones NEG, Urine Nitrite NEG, Urine Bilirubin NEG, Urine Urobilinogen 2.0 H, Ur Leukocyte Esterase NEG, Ur Microscopic SEDIMENT EXAMINED, Urine RBC 1-3, Urine WBC 1-3 H, Ur Epithelial Cells FEW, Urine Hemoglobin SMALL H, Urine Glucose NEG 06/30/16 2339: Anion Gap 7, Estimated GFR > 60, BUN/Creatinine Ratio 25.6 H, Glucose 105 H, Calcium 8.1 L, Total Bilirubin 1.8 H, AST 37, ALT 24, Alkaline Phosphatase 171 H, Troponin I < 0.01, [id number] Pept 3060 H, Total Protein 8.9 H, Albumin 3.0 L, Globulin 5.9 H, Albumin/Globulin Ratio 0.5 L 06/30/16 2305: CBC w Diff NO MAN DIFF REQ, RBC 4.20 L, MCV 74.9 L, MCH 24.3 L, RDW 20.4 H, MPV 7.0 L, Gran % 57.7, Lymphocytes % 26.4, Monocytes % 14.8 H, Eosinophils % 0.3, Basophils % 0.8, Absolute Granulocytes 3.5, Absolute Lymphocytes 1.6, Absolute Monocytes 0.9 H, Absolute Eosinophils 0, Absolute Basophils 0.1, PUBS MCHC 32.4 L Recent Imaging Studies: EKG tracing is independently reviewed, and reveals possible sinus tachycardia at 125 bpm versus SVT. P waves appear to be obscured by the T-wave. Chest x-ray: Cardiomegaly and persistent congestive heart failure. Small pleural effusions appear slightly decreased in size compared to 06/30/2016. Assessment/Plan Assessment/Plan Assessment: 1. History of CVA 2. Acute diastolic heart failure 3. Tachycardia, likely sinus tachycardia 4. Diabetes mellitus Plan: * Continue IV Lasix * Monitor input and output with daily weights * I recommend starting metoprolol 12.5 mg by mouth twice a day for tachycardia Continue telemetry? Yes
[2016-07-02 15:57] VITALS: BP 112/58
[2016-07-03 01:00] VITALS: BP 110/64
[2016-07-03 08:10] VITALS: BP 112/62
--- NOTE | 2016-07-03 08:27 | PN- Housestaff ---
BELEM ARMSTRONG 07/03/16 0827: Subjective Follow-up For: Acute pulmonary edema Diastolic acute congestive heart failure Newly diagnosed diabetes mellitus Paraproteinemia Complaints: pain scale (0-10) Tele-Events Since Last Visit: Sinus rhythm 77-85 PVCs No acute events monitored on telemetry Subjective: Patient was seen and examined this morning. He is alert, awake and oriented to time place and person. No acute events reported overnight. He feels weak, tired and fatigue this morning. He denied any shortness of breath at rest. He has some shortness of breath on exertion. Has mild cough denied any sputum production. Denied any fever, chills, nausea, vomiting, abdominal pain, change in bladder or bowel habits. He feels that his bilateral leg edema has markedly improved since admission. Vitals with stable afebrile, heart rate 87, respiratory rate 20, blood pressure 118/70, saturating at 94% on 2 L nasal cannula Review of Systems Constitutional: Denies: see HPI. Objective Last 24 Hrs of Vital Signs/I&O Vital Signs Date Time Temp Pulse Resp B/P Pulse O2 O2 Flow FiO2 Ox Delivery Rate 07/03 0907 118/70 07/03 0907 118/70 07/03 0810 97.6 87 20 112/62 94 Nasal 2.0L Cannula 07/03 0100 97.5 84 20 110/64 94 Nasal 2.0L Cannula 07/03 0000 Nasal 2.0L Cannula 07/02 1600 97 Nasal 2.0L Cannula 07/02 1557 98.2 97 18 112/58 94 07/02 1556 97 112/58 07/02 1315 136 130/60 Intake & Output 07/03 1600 07/03 0800 07/03 0000 Intake Total 150 450 Output Total 250 600 Balance -100 -150 Intake, Oral 150 450 Number 0 Bowel Movements Output, Urine 250 600 Patient 77.734 kg Weight Physical Exam General Appearance: Alert, Oriented X3, Cooperative, No Acute Distress Skin: No Rashes, No Breakdown HEENT: Atraumatic, Mucous Membr. moist/pink Neck: Supple, No JVD Lymphatic: Cervical nl Cardiovascular: Regular Rate, Normal S1, Normal S2 Lungs: Normal Air Movement, crackles b/l Abdomen: Normal Bowel Sounds, Soft, No Tenderness Extremities: No Clubbing, No Cyanosis, b/l trace edema Vascular: Normal Pulses Current Medications: Current Medications Sig/Lenny Start time Last Medication Dose Route Stop Time Status Admin Acetaminophen 650 MG Q6P PRN 07/01 0230 AC PO Benzonatate 100 MG Q8 07/03 0605 AC 07/03 PO 0907 Docusate Sodium 100 MG DAILY NEEDED PRN 07/01 2330 AC 07/02 PO 0109 Enoxaparin Sodium 40 MG DAILY 07/01 1000 AC 07/03 SC 0907 Furosemide 40 MG DAILY 07/01 1000 AC 07/03 IV 0907 Insulin Aspart 0 TIDAC/HS 07/01 2100 AC SC Levothyroxine Sodium 0.2 MG DAILY AC 07/01 0700 AC 07/03 PO 0611 Lisinopril 20 MG DAILY 07/01 1000 AC 07/03 PO 0907 Methotrexate 5 MG QTHURS 07/07 1000 AC PO Metoprolol Tartrate 12.5 MG BID 07/02 1437 AC 07/03 PO 0907 Oxycodone HCl 5 MG Q6P PRN 07/01 0230 AC PO Repaglinide 0.5 MG 0800,1200,1700 07/02 1215 AC 07/03 PO 0907 Last 24 Hrs of Lab/Thomas Results Last 24 Hrs of Labs/Mics: Laboratory Tests 07/03/16 0720: Anion Gap 8, Estimated GFR > 60, BUN/Creatinine Ratio 28.0 H Assessment/Plan Assessment: Patient is a 75-year-old gentleman with past medical history significant for rheumatoid arthritis (on methotrexate), hypothyroidism, HTN, prostate cancer s/p radiotherapy and hormonal suppression therapy, CHF with stage III diastolic dysfunction, last admitted in August 2015 for pericardial effusion, who presented to the ED with 1 week of worsening weakness, pedal edema, orthopnea, coughing, and shortness of breath. Vitals vital signs in the ED showed T of 98.6, pulse rate 98, respiratory rate 20 saturating in room air, blood pressure 152/89. Lab work showed elevated proBNP of 3060 Chest x-ray reported congestive heart failure Problem list and plan: CHF exacerbation History of CHF with stage III diastolic dysfunction, on 20 mg by mouth Lasix at home and follows up with Dr. Chapman last seen a month ago. * Last echo done in 11/16/2015. * Received 40 mg IV Lasix in the ED * patient on IV Lasix 40 mg daily. * Depending on status of patient's clinical condition IV Lasix dose can be changed to oral Lasix as per cardiology recommendations * BEP in a.m. * Strict I's and O's and daily weight Tachycardia * Patient was noted to be tachycardic and metoprolol 12.5 mg twice a day was started. History of pericardial effusion Admitted in August 2015 for pericardial effusion, pericardial window was placed. Chest x-ray done- showed slightly decreased pleural effusions decreased in size compared to previous. Type 2 diabetes Patient was diagnosed about a week ago and was started on insulin by the PCP, patient is taking Levemir 10 units at bedtime and Humalog sliding scale. Held Levemir and started on low dose NovoLog sliding scale. * Accu-Cheks every 4 hours * Patient started on 0.5 Prandin 3 times a day. * We stopped Levemir. * Hemoglobin A1c was 10.3. Rheumatoid arthritis Continue methotrexate Hypothyroidism Continue levothyroxine Hypertension Continue valsartan and hydrochlorothiazide, DVT prophylaxis Subcutaneous Lovenox FULL CODE Problem List: 1. CHF exacerbation 2. Pulmonary edema 3. Full code status 4. Rheumatoid arthritis 5. Hyperlipidemia Pain Ratin Pain Location: none Pain Goal: Remain pain free Pain Plan: tylinol Tomorrow's Labs & Rationales: BEP to monitor electrolytes Consulting Request: Consulting Specialty: Endocrinology Consulting Physician: Dr. Morrow Reason for Consult: recently diagnosed diabetes and started on insulin therapy BRAYDON SHAH MD 07/03/16 0902: Attending MD Review Statement Attending Statement Attending MD Statement: examined this patient, discuss w/resident/PA/CANE FLUME FEEDING MACHINE OPERATOR, agreed w/resident/PA/CANE FLUME FEEDING MACHINE OPERATOR, reviewed EMR data (avail), discussed with nursing Attending Assessment/Plan: Patient appears very weak and fatigued. He is a 75-year-old Lao male with a history of rheumatoid arthritis on methotrexate was here with acute pulmonary edema. His echo from Monday shows a restrictive patterns of this is probably all diastolic heart. He also has newly diagnosed diabetes and we are working him up for a paraproteinemia because of a high total protein and high globulin level. At this point I put a PT eval to see if he can ambulate, appreciate endocrines recommendations and he was changed from insulin to Prandin. Will talk to cardiology about changing his Lasix to by mouth and follow-up his renal function and lytes closely.
--- NOTE | 2016-07-03 11:28 | PN- Diabetes ---
Assessment/Plan Assessment: 75 y/o male with complicated past medical history presented with worsening SOB. Clinically he has been improving. Levemir was discontinued on 07/02/2016. He was put on Prandin 0.5 mg before meals. Novolog coverage was adjusted. His FSGs were 107, 214, 125, 75, 140 and 98. Plan: 1. continue the current DM regimen; 2. monitor FSGs; will follow. Subjective Subjective: He has no special compaints this morning. Objective Last 24 Hrs of Vital Signs/I&O Vital Signs Date Time Temp Pulse Resp B/P Pulse O2 O2 Flow FiO2 Ox Delivery Rate 07/03 0907 118/70 07/03 0907 118/70 07/03 0810 97.6 87 20 112/62 94 Nasal 2.0L Cannula 07/03 0100 97.5 84 20 110/64 94 Nasal 2.0L Cannula 07/03 0000 Nasal 2.0L Cannula 07/02 1600 97 Nasal 2.0L Cannula 07/02 1557 98.2 97 18 112/58 94 07/02 1556 97 112/58 07/02 1315 136 130/60 Intake & Output 07/03 1600 07/03 0800 07/03 0000 Intake Total 150 450 Output Total 250 600 Balance -100 -150 Intake, Oral 150 450 Number 0 Bowel Movements Output, Urine 250 600 Patient 171 lb Weight Findings Pertinent Lab/Thomas Results: Laboratory Tests 07/03 0720 Chemistry Sodium (137 - 145 mmol/L) 133 L Potassium (3.5 - 5.1 mmol/L) 3.8 Chloride (98 - 107 mmol/L) 86 L Carbon Dioxide (22 - 30 mmol/L) 38 H Anion Gap (5 - 16) 8 BUN (9 - 20 mg/dL) 28 H Creatinine (0.7 - 1.2 mg/dL) 1.0 Estimated GFR (>60 ml/min) > 60 BUN/Creatinine Ratio (7 - 25 %) 28.0 H
--- NOTE | 2016-07-03 15:25 | PN- Cardiology ---
Subjective Subjective: Shortness of breath is improving. No chest pain. Tachycardia has resolved on metoprolol. No palpitations. No diaphoresis. No chest pain. Objective Vital Signs and I&Os Vital Signs Date Time Temp Pulse Resp B/P Pulse O2 O2 Flow FiO2 Ox Delivery Rate 07/03 0907 118/70 07/03 0907 118/70 07/03 0810 97.6 87 20 112/62 94 Nasal 2.0L Cannula 07/03 08 94 Nasal 2.0L Cannula 07/03 0100 97.5 84 20 110/64 94 Nasal 2.0L Cannula 07/03 0000 Nasal 2.0L Cannula 07/02 1600 97 Nasal 2.0L Cannula 07/02 1557 98.2 97 18 112/58 94 07/02 1556 97 Intake & Output 07/03 1600 07/03 0800 07/03 0000 07/02 1600 07/02 0800 07/02 0000 Intake Total 400 150 450 560 240 480 Output Total 600 250 600 900 500 500 Balance -200 -100 -150 -340 -260 -20 Intake, Oral 400 150 450 560 240 480 Number 0 1 Bowel Movements Output, Urine 600 250 600 900 500 500 Patient 171 lb 171 lb Weight Physical Exam: Gen: NAD HEENT: normal Lungs: Basilar rales, normal resp. effort Heart: RRR, S1, S2, no murmurs Abdomen: Soft, nontender, no masses Extremities: 1+ edema Neuro: Alert and oriented x 3, cranial nerves intact Current Medications: Current Medications Sig/Lenny Start time Last Medication Dose Route Stop Time Status Admin Acetaminophen 650 MG Q6P PRN 07/01 0230 AC PO Benzonatate 100 MG Q8 07/03 0605 AC 07/03 PO 0907 Docusate Sodium 100 MG DAILY NEEDED PRN 07/01 2330 AC 07/02 PO 0109 Enoxaparin Sodium 40 MG DAILY 07/01 1000 AC 07/03 SC 0907 Furosemide 40 MG DAILY 07/01 1000 AC 07/03 IV 0907 Insulin Aspart 0 TIDAC/HS 07/01 2100 AC SC Levothyroxine Sodium 0.2 MG DAILY AC 07/01 0700 AC 07/03 PO 0611 Lisinopril 20 MG DAILY 07/01 1000 AC 07/03 PO 0907 Methotrexate 5 MG QTHURS 07/07 1000 AC PO Metoprolol Tartrate 12.5 MG BID 07/02 1437 AC 07/03 PO 0907 Oxycodone HCl 5 MG Q6P PRN 07/01 0230 AC PO Repaglinide 0.5 MG 0800,1200,1700 07/02 1215 AC 07/03 PO 1216 Results Last 48 Hrs of Labs/Mics: Laboratory Tests 07/03/16 0720: Anion Gap 8, Estimated GFR > 60, BUN/Creatinine Ratio 28.0 H 07/02/16 0713: Anion Gap 5, Estimated GFR 59 L, BUN/Creatinine Ratio 23.3, Magnesium 1.8 07/02/16 0605: CBC w Diff NO MAN DIFF REQ, RBC 3.71 L, MCV 74.9 L, MCH 24.6 L, RDW 20.4 H, MPV 6.7 L, Gran % 56.8, Lymphocytes % 34.4, Monocytes % 7.8, Eosinophils % 0.4, Basophils % 0.6, Absolute Granulocytes 2.3, Absolute Lymphocytes 1.4, Absolute Monocytes 0.3, Absolute Eosinophils 0, Absolute Basophils 0, PUBS MCHC 32.9 L Assessment/Plan Assessment/Plan Assessment: 1. History of CVA 2. Acute diastolic heart failure 3. Tachycardia, likely sinus tachycardia 4. Diabetes mellitus Plan: * Continue IV Lasix today. Consider changing to po Lasix tomorrow if stable. * Monitor input and output with daily weights * Continue other cardiac medications. Continue telemetry? Yes
[2016-07-03 16:05] VITALS: BP 126/70
[2016-07-03 23:53] VITALS: BP 110/64
[2016-07-04 08:00] VITALS: BP 108/60
--- NOTE | 2016-07-04 09:20 | PN- Housestaff ---
FITZ TELLES[place] [place] 0920: Subjective Follow-up For: Acute diastolic CHF T2DM Elevated globulin gap Tele-Events Since Last Visit: SR. 1st degree AV block. HR 70-90s. Subjective: No acute events overnight. Patient seen and examined this morning. He feels good and much improved in terms of strength. He complains of intermittent episodes of sharp pain in his chest just before "his sugars go up". He continues to have cough productive of clear sputum. His breathing has improved. Review of Systems Constitutional: Denies: chills, fever. Cardiovascular: Reports: chest pain. Respiratory: Reports: cough, sputum production. Denies: short of breath. Gastrointestinal: Denies: abdominal pain, constipation, diarrhea, nausea, vomiting. Objective Last 24 Hrs of Vital Signs/I&O Vital Signs Date Time Temp Pulse Resp B/P Pulse O2 O2 Flow FiO2 Ox Delivery Rate 07/04 2126 112/70 07/04 1600 Nasal 2.0L Cannula 07/04 1538 97.5 91 20 120/72 93 Nasal 2.0L Cannula 07/04 0810 96 110/64 07/04 0810 96 110/64 07/04 0800 Nasal 2.0L Cannula 07/04 0800 98.1 81 20 108/60 93 Nasal 2.0L Cannula 07/04 0000 Nasal 2.0L Cannula 07/03 2353 97.8 96 20 110/64 94 Nasal Cannula Intake & Output 07/04 1600 07/04 0800 07/04 0000 Intake Total 480 130 450 Output Total 500 300 0 Balance -20 -170 450 Intake, IV 10 10 Intake, Oral 480 120 440 Number 0 Bowel Movements Output, Urine 500 300 0 Patient 77.564 kg Weight Physical Exam General Appearance: Alert, Oriented X3, No Acute Distress HEENT: Mucous Membr. moist/pink Cardiovascular: Regular Rate, Normal S1, Normal S2, No Murmurs, Gallops Lungs: Normal Air Movement, Bibasilar Crackles Abdomen: Soft, No Tenderness, Positive Bowel Sounds Extremities: No Clubbing, No Cyanosis, +1 Edema on Bilateral Lower Extremities Current Medications: Current Medications Sig/Lenny Start time Last Medication Dose Route Stop Time Status Admin Acetaminophen 650 MG Q6P PRN 07/01 0230 AC PO Benzonatate 100 MG Q8 07/03 06 AC 07/04 PO 2126 Docusate Sodium 100 MG DAILY NEEDED PRN 07/01 2330 AC 07/02 PO 0109 Enoxaparin Sodium 40 MG DAILY 07/01 1000 AC 07/04 SC 0810 Furosemide 40 MG DAILY 07/05 1000 AC PO Furosemide 40 MG DAILY 07/01 1000 DC 07/04 IV 0810 Insulin Aspart 0 TIDAC/HS 07/01 2100 DC SC Levothyroxine Sodium 0.2 MG DAILY AC 07/01 0700 AC 07/04 PO 0551 Lisinopril 20 MG DAILY 07/01 1000 AC 07/04 PO 0810 Magnesium Oxide 400 MG ONE ONE 07/04 1630 DC 07/04 PO 07/04 1631 1702 Methotrexate 5 MG QTHURS 07/07 1000 AC PO Metoprolol Tartrate 12.5 MG BID 07/02 1437 AC 07/04 PO 2127 Oxycodone HCl 5 MG Q6P PRN 07/01 0230 AC PO Potassium Chloride 40 MEQ ONCE ONE 07/04 1545 DC 07/04 PO 07/04 1546 1702 Repaglinide 0.5 MG 0800,1200,1700 07/02 1215 AC 07/04 PO 1702 Last 24 Hrs of Lab/Thomas Results Last 24 Hrs of Labs/Mics: Laboratory Tests 07/04/16 0610: Anion Gap 7, Estimated GFR > 60, BUN/Creatinine Ratio 28.2 H, Magnesium 1.7 Assessment/Plan Assessment: 75 y/o M with PMHx of diastolic CHF, rheumatoid arthritis and prostate cancer s/ p hormonal and radiation therapy who is admitted for acute diastolic CHF. #Acute diastolic CHF: SOB much improved today. * Cardiology following. Appreciate their recs. * Potential discharge home tomorrow. * Changed Lasix 40 mg to PO today. * Continue telemetry monitoring. * Continue to monitor daily weight and I/Os. * Continue metoprolol 12.5 mg PO BID. #T2DM: Blood sugars have been running low, jimi of 85 overnight. * Endocrinology following. Appreciate their recs. * Novolog SSI TIDAC/QHS discontinued. * Continue Prandin 0.5 mg PO TIDAC. * Will discharge patient on Prandin 0.5 mg PO TIDAC, hold med if patient skips a meal. * Follow up with Dr. Claros as outpatient. #Elevated globulin gap: Globulin gap of 5.9. Concerning for multiple myeloma. * SPEP, UPEP and immunofixation pending. * Will give outpatient hematology referral. Diet: Consistent Carbohydrate 2 with 2 g Na restriction Electrolytes: Replete to K > 4 and Mg > 2 DVT PPx: Lovenox and ALPs CODE: FULL Problem List: 1. T2DM (type 2 diabetes mellitus) 2. Acute diastolic CHF (congestive heart failure) 3. Elevated serum globulin level Pain Ratin Pain Location: N/A Pain Goal: Remain pain free Pain Plan: Roxicodone 5 mg PO Q6H PRN for severe pain (scale 7-10) Tylenol 650 mg PO Q6H PRN for mild pain (scale 1-3) Tomorrow's Labs & Rationales: CBC to monitor H/H in the setting of anemia BMP and Mg to monitor lytes and kidney function in the setting of diuresis Discharge Plan Discharge Disposition: home Anticipated Discharge (Day): tomorrow ALYSSA TELLES,BRAYDON 07/04/16 0928: Attending MD Review Statement Attending Statement Attending MD Statement: examined this patient, discuss w/resident/PA/MENTAL RETARDATION NURSE, agreed w/resident/PA/MENTAL RETARDATION NURSE, reviewed EMR data (avail), discussed with nursing Attending Assessment/Plan: The patient is doing okay. I think the IV Lasix can be sways safely switch to by mouth Lasix. He is a 75-year-old male with methotrexate dependent rheumatoid arthritis, history of pericardial effusion in the past and he is here with acute diastolic heart failure that we treated with IV Lasix, he's also got newly diagnosed diabetes. He is on an MOISES inhibitor, low-dose beta alaina and will talk to cardiology about the by mouth Lasix. Dr. claros is seeing him for the diabetes and we switched him to Prandin now. He had a high total protein and high globulin level so the SPEP and UPEP are pending. PT is going to see him. And depending on the results of the SPEP UPEP and by mouth Lasix plan for discharge ?in am
--- NOTE | 2016-07-04 11:38 | PN- Diabetes ---
Assessment/Plan Assessment: 75 y/o male with complicated past medical history presented with worsening SOB. Clinically he has been improving. Levemir was discontinued on 07/02/2016. He was put on Prandin 0.5 mg before meals. Novolog coverage was adjusted. His FSGs were 98, 234, 140, 85 and 95. Am lab showed sodium 132. Plan: 1. continue Prandin 0.5 mg before meals x 3 times a day; 2. stop Novolog coverage; 3. monitor FSGs; monitor electrolytes. 4. Discharge plan for DM ---no insulin ---prandin 0.5 mg before meals x 3 times a day; hold prandin if he skips meal ---f/u in office after discharge. Subjective Subjective: He has no special complaints this morning. Objective Last 24 Hrs of Vital Signs/I&O Vital Signs Date Time Temp Pulse Resp B/P Pulse O2 O2 Flow FiO2 Ox Delivery Rate 07/04 0810 96 110/64 07/04 0810 96 110/64 07/04 0800 Nasal 2.0L Cannula 07/04 0800 98.1 81 20 108/60 93 Nasal 2.0L Cannula 07/04 0000 Nasal 2.0L Cannula 07/03 2353 97.8 96 20 110/64 94 Nasal Cannula 07/03 2130 87 07/03 1605 97.9 85 20 126/70 95 Nasal 2.0L Cannula 07/03 1600 Nasal 2.0L Cannula Intake & Output 07/04 1600 07/04 0800 07/04 0000 Intake Total 130 450 Output Total 300 0 Balance -170 450 Intake, IV 10 10 Intake, Oral 120 440 Number 0 Bowel Movements Output, Urine 300 0 Patient 171 lb Weight Findings Pertinent Lab/Thomas Results: Laboratory Tests 07/04 0610 Chemistry Sodium (137 - 145 mmol/L) 132 L Potassium (3.5 - 5.1 mmol/L) 3.7 Chloride (98 - 107 mmol/L) 87 L Carbon Dioxide (22 - 30 mmol/L) 38 H Anion Gap (5 - 16) 7 BUN (9 - 20 mg/dL) 31 H Creatinine (0.7 - 1.2 mg/dL) 1.1 Estimated GFR (>60 ml/min) > 60 BUN/Creatinine Ratio (7 - 25 %) 28.2 H
--- NOTE | 2016-07-04 13:54 | PN- Cardiology ---
Subjective Subjective: Feeling somewhat better. Shortness of breath improving. No chest pain. No palpitations. No diaphoresis. No nausea or vomiting. Objective Vital Signs and I&Os Vital Signs Date Time Temp Pulse Resp B/P Pulse O2 O2 Flow FiO2 Ox Delivery Rate 07/04 0810 96 110/64 07/04 0810 96 110/64 07/04 0800 Nasal 2.0L Cannula 07/04 0800 98.1 81 20 108/60 93 Nasal 2.0L Cannula 07/04 0000 Nasal 2.0L Cannula 07/03 2353 97.8 96 20 110/64 94 Nasal Cannula 07/03 2130 87 07/03 1605 97.9 85 20 126/70 95 Nasal 2.0L Cannula 07/03 1600 Nasal 2.0L Cannula Intake & Output 07/04 0800 07/04 0000 07/03 1600 07/03 0807/03 0000 Intake Total 130 450 400 150 450 Output Total 300 0 600 250 600 Balance -170 450 -200 -100 -150 Intake, IV 10 10 Intake, Oral 120 440 400 150 450 Number 0 0 Bowel Movements Output, Urine 300 0 600 250 600 Patient 171 lb 171 lb Weight Physical Exam: Gen: NAD HEENT: normal Lungs: Basilar rales, normal resp. effort Heart: RRR, S1, S2, no murmurs Abdomen: Soft, nontender, no masses Extremities: 1+ edema Neuro: Alert and oriented x 3, cranial nerves intact Current Medications: Current Medications Sig/Lenny Start time Last Medication Dose Route Stop Time Status Admin Acetaminophen 650 MG Q6P PRN 07/01 0230 AC PO Benzonatate 100 MG Q8 07/03 0605 AC 07/04 PO 1300 Docusate Sodium 100 MG DAILY NEEDED PRN 07/01 2330 AC 07/02 PO 0109 Enoxaparin Sodium 40 MG DAILY 07/01 1000 AC 07/04 SC 0810 Furosemide 40 MG DAILY 07/01 1000 AC 07/04 IV 0810 Insulin Aspart 0 TIDAC/HS 07/01 2100 DC SC Levothyroxine Sodium 0.2 MG DAILY AC 07/01 0700 AC 07/04 PO 0551 Lisinopril 20 MG DAILY 07/01 1000 AC 07/04 PO 0810 Methotrexate 5 MG QTHURS 07/07 1000 AC PO Metoprolol Tartrate 12.5 MG BID 07/02 1437 AC 07/04 PO 0810 Oxycodone HCl 5 MG Q6P PRN 07/01 0230 AC PO Repaglinide 0.5 MG 0800,1200,1700 07/02 1215 AC 07/04 PO 1132 Results Last 48 Hrs of Labs/Mics: Laboratory Tests 07/04/16 0610: Anion Gap 7, Estimated GFR > 60, BUN/Creatinine Ratio 28.2 H 07/03/16 0720: Anion Gap 8, Estimated GFR > 60, BUN/Creatinine Ratio 28.0 H Assessment/Plan Assessment/Plan Assessment: 1. History of CVA 2. Acute diastolic heart failure 3. Tachycardia, likely sinus tachycardia 4. Diabetes mellitus Plan: * Change Lasix to 40 mg by mouth daily * Monitor input and output with daily weights * Continue other cardiac medications. * Possible discharge tomorrow. Continue telemetry? Yes
--- NOTE | 2016-07-04 14:22 | NUR ---
Spoke with patient's son on the phone, interested in diet education. Son was to be here at 1:30pm, attempted visit at 1:30 and 2pm, he was not there. RD to f/u tomorrow to see if son is available. PO intake good at this time.
[2016-07-04 15:38] VITALS: BP 120/72
[2016-07-05 00:18] VITALS: BP 118/70
[2016-07-05] MEDS ORDERED: METHOTREXATE2.5 M2 PO (03:33)
[2016-07-05] MEDS ORDERED: FUROSEMIDE40 M1 PO (03:39)
[2016-07-05] MEDS ORDERED: METOPROLOL TART25 M1 PO (03:41)
--- NOTE | 2016-07-05 03:42 | Patient Discharge Instructions ---
Discharge Instructions General Discharge Information You were seen/treated for: Congestive heart failure Diabetes Watch for these problems: Swelling in your legs or ankles Weight gain Dizziness or lightheadedness Difficulty breathing Chest pain or pressure Special Instructions: -Please see your primary care physician Dr. Farley within one week of discharge. -Please follow up with supervisor dried yeast Dr. Hutchison for diabetes within two weeks of discharge. -Please follow up after discharge with radio disc jockey Dr. Grier two weeks after discharge. -Please follow up with photo retoucher (Dr. Wild or Dr. Chapman) after discharge Diet Recommended Diet: Diabetic Activity Activity Self Limited: Yes Activity Limited to: Walking with Assistance Acute Coronary Syndrome Inclusion Criteria At DC or during hospital stay patient has or had the following: ACS DIAGNOSIS No Discharge Core Measures Meds if any: Prescribed or Continued at Discharge Meds if any: NOT Prescribed or Continued at Discharge Congestive Heart Failure Inclusion Criteria At DC or during hospital stay patient has or had the following: CHF DIAGNOSIS Yes Discharge Core Measures Meds if any: Prescribed or Continued at Discharge Meds if any: NOT Prescribed or Continued at Discharge Comment Patient has LVEF at 55% Cerebrovascular accident Inclusion Criteria At DC or during hospital stay patient has or had the following: CVA/TIA Diagnosis No Discharge Core Measures Meds if any: Prescribed or Continued at Discharge Meds if any: NOT Prescribed or Continued at Discharge Venous thromboembolism Inclusion Criteria VTE Diagnosis No VTE Type NONE VTE Confirmed by (Test) NONE Discharge Core Measures - Per Current guidelines, there needs to be overlap - treatment for the first 5 days of Warfarin therapy. - If discharged on Warfarin prior to 5 days of - overlap therapy, the patient will need to be - assessed for post discharge needs including - *Post discharge parental anticoagulation - *Warfarin and/or parental anticoagulation education - *Follow up date to check INR post discharge At least 5 days overlap therapy as Inpatient No Meds if any: Prescribed or Continued at Discharge Note: Overlap Therapy is Warfarin and Anticoagulant Meds if any: NOT Prescribed or Continued at Discharge
[2016-07-05] MEDS ORDERED: PRANDIN PO (03:43)
--- NOTE | 2016-07-05 07:31 | Discharge Summary ---
Visit Information Visit Dates Admission Date: 07/01/16 Discharge Date: 07/11/16 Hospital Course Course Attending Physician: VICTORINO OBRIEN MD Primary Care Physician: ALICE BARNHART MD Other Care Providers: Math And Science Instructor: Aishwarya Chapman MD Consulting Request: 1 Consulting Specialty: Cardiology Consulting Physician: Aishwarya Chapman MD Reason for Consult: Shortness of breath Consulting Request: 2 Consulting Specialty: Endocrinology Consulting Physician: Keo Hutchison MD Reason for Consult: management of DM type 2 Consulting Request: 3 Consulting Specialty: Pulmonary Disease Consulting Physician: Grupo Grier MD Hospital Course: Mr. Lomas is a 75 y/o M with PMHx of grade 3 diastolic dysfunction, prostate cancer s/p hormone and radiation therapy, rheumatoid arthritis, hypothyroidism, R-sided CVA, cardiac tamponade s/p pericardial window, HLD, HTN and T2DM who presented with SOB and lethargy x 1 week. On initial presentation, he was hypertensive to 152/89 and borderline tachycardic with HR of 98. He desaturated to 88% on room air and was placed on 3 L NC. On exam, he had evidence of significant volume overload including bibasilar crackles and bilateral lower extremity edema. Labs were remarkable for H/H 10.2/31.5, Na 130, K 3.3, chloride 89, bicarbonate 35, BUN/Cr 23/0.9, total bilirubin 1.8 and proBNP 3060. EKG showed wide-complex rhythm, probably LBBB, unchanged from prior. CXR showed moderate pulmonary vascular congestion, interstitial edema and moderate-sized right pleural effusion. Patient was admitted for CHF exacerbation. Below are the issues that were actively addressed during current admission: #Acute diastolic CHF: Patient's contractor broomcorn threshing Dr. Chapman was consulted. According to his recommendations, patient was diuresed with IV Lasix with significant improvement of his symptoms. Repeat imaging showed showed interval decrease in the size of pleural effusions, but persistent bilateral pulmonary edema. Patient had sinus tachycardia with HR > 100 on continuous cardiac monitoring and was started on metoprolol with improvement of his HR to 70-80s. ECHO was performed which was significant for LVEF of 55% with mild anterior wall hypokinesis, restrictive filling pattern and mild right atrial and moderate left atrial enlargement. * Patient will continue taking metoprolol 12.5 mg PO BID on discharge. * Prior to admission HCTZ 25 mg PO QD was discontinued on discharge. * Prior to admission Lasix was increased to 40 mg PO QD on discharge. * Patient will follow up with Cardiology as outpatient. Plan is to perform imaging stress test to exclude ischemia given his multiple risk factors for CAD. If there is evidence of ischemia, patient will need combined right and left heart catheterization. If there is no evidence of ischemia, patient may benefit from cardiac MRI with possible right heart catheterization to evaluate for constrictive pericarditis, which may be contributing to his diastolic dysfunction. * Patient was discharged on home oxygen given his persistent oxygen requirement (1 L on day of discharge). #Aspiration pneumonia: CXR on 07/05/16 showed interval development of airspace consolidation within the right upper lobe, concerning for pneumonia. Further evaluation by CT Chest showed that the lesion corresponded to loculated fluid within the right minor fissure, measuring 4.1 x 4.6 cm. Patient was started on IV Unasyn due to concern for aspiration pneumonia in the setting of his progressive shortness of breath and cough, as well as his immunosuppressed state , secondary to methotrexate therapy for rheumatoid arthritis. Pulmonology was consulted and patient was continued on IV Unasyn (07/06-07/08) according to their recommendations and later switched to PO Augmentin. Modified barium swallow was performed which showed penetration of thin liquids without cough reflex, hence patient was placed on full chopped and nectar thick liquids diet. Repeat swallow evaluation was performed by speech therapy later on to see if diet could be liberalized, who recommended that patient should continue nectar thick liquids with meals but can have thin liquids between meals, as long as he performs thorough oral care. * Patient will continue taking Augmentin 875 mg PO BID for 3 more doses on discharge to complete 7-day course of antibiotics (07/06-07/12). * Patient will continue speech therapy as outpatient to ensure carryover of dietary recommendations. * Patient will follow up with freelance copywriter Dr. Grier on discharge. #T2DM: Patient had been recently diagnosed with T2DM and started on Levemir and Novolog by his PCP, however his blood sugars had been fluctuating. His HbA1c was checked during this admission and came back at 10.3. Endocrinology was consulted per patient's request for the management of recently diagnosed diabetes. Patient was initially started on Levemir as well as sliding scale insulin with meals and at bedtime. Insulin was later discontinued given patient's susceptibility to hypoglycemia, and he was placed on Prandin instead. * Patient was discharged on Prandin 0.5 mg PO before meals x 3 times a day, with instructions to hold medication if he skips a meal. * Patient was instructed to follow up with Dr. Hutchison as outpatient. #Hypercarbia: Patient was found to be hypercarbic on ABG (07/06/16) revealing 7.40 /58/67/35. Hypercarbia persisted on repeat ABG despite improvement of pO2, thus this was felt to be chronic hypercarbia secondary to obesity hypoventilation syndrome with possible contributions from central and obstructive sleep apnea. Per pulmonology recs, patient was given two doses of Diamox. * Patient will need outpatient sleep study to evaluate for sleep apnea. #Elevated globulin gap: Patient had a globulin gap of 5.9, concerning for multiple myeloma. No monoclonal proteins were detected on SPEP which showed a chronic inflammatory pattern. #Anemia: Patient had Hgb in the 9-10 range this admission, slightly lower than his previous baseline of 10-12. Anemia was microcytic with a MCV of around 75. Iron studies and thyroid function tests were all within normal limits except for slight elevation in free T4 (2.57). Etiology of the anemia is unclear. #Prostate cancer: PSA was checked and was within normal limits (0.44). Patient's oncologist Dr. Sandoval was alerted of admission. Allergies: Coded Allergies: aspirin (Mild, ULCER 10/13/15) Disposition Summary Disposition Principal Diagnosis: Acute diastolic CHF Additional Diagnosis: Aspiration pneumonia T2DM Chronic hypercarbia Microcytic anemia Discharge Disposition: home health services Discharge Instructions General Discharge Information Code Status: Full Code Patient's Diet: Diabetic Patient's Activity: As tolerated with assistance Follow-Up Instructions/Appts: -Please see your primary care physician Dr. Barnhart within one week of discharge. -Please follow up with director business travel Dr. Hutchison for diabetes within two weeks of discharge. -Please follow up after discharge with freelance copywriter Dr. Grier two weeks after discharge. -Please follow up with contractor [employer] threshing (Dr. Wild or Dr. Chapman) after discharge Medications at Discharge Discharge Medications: Stop taking the following medications: Hydrochlorothiazide (Hydrodiuril 25 MG Tab) 25 MG TAB ORAL DAILY Insulin Detemir (Levemir) 100 UNIT/ML VIAL Inject into fatty tissue DAILY HS Insulin Aspart (Novolog) 100 UNIT/ML CARTRIDGE Inject into fatty tissue SLIGHTING Continue taking these medications: Levothyroxine Sodium (Levothyroxine Sodium) 0.2 MG TAB 1 Tablet ORAL DAILY Enalapril Maleate (Enalapril Maleate) 20 MG TAB 1 Tablet ORAL DAILY Comments: given 08/12/15 @ 1000 Folic Acid (Folic Acid) 1 MG TABLET 2 Milligram ORAL DAILY Comments: Last Taken: NOT GIVEN IN HOSPITAL Time: Methotrexate (Methotrexate) 2.5 MG TABLET 5 Milligram ORAL EVERY MONDAY Comments: Last Taken: 07/07/16 Time:0848 Start taking the following new medications: Repaglinide (Prandin) 0.5 MG TABLET 1 Tablet ORAL 3 TIMES DAILY BEFORE MEALS Days = 30 No Refills Instructions: Hold prandin if you skip a meal Comments: Last Taken: 07/05/16 Time: 1:15 PM Metoprolol Tartrate (Metoprolol Tartrate) 25 MG TABLET 12.5 Milligram ORAL TWICE DAILY Days = 30 No Refills Amoxicillin/Potassium Clav (Augmentin 875-125 Tablet) 875 MG-125 MG TABLET 1 Tablet ORAL TWICE DAILY Qty = 3 No Refills The following medications have been changed: Old: Furosemide (Furosemide) 20 MG TABLET 1 Tablet ORAL DAILY New: Furosemide (Furosemide) 40 MG TABLET 1 Tablet ORAL DAILY Qty = 30 Comments: Last Taken: 07/05/16 Time: 9:00 AM Copies To: ALAN TELLES,GRUPO Ivey; PAU TELLES,AISHWARYA Ivey; BRONWYN TELLES,HAVEN SANDOVAL MD,RAFAELA Guerrier; SUSSY TELLES,KEO Attending MD Review Statement Documenting Attending: VICTORINO OBRIEN MD Other Findings: The patient was seen and agree with the plan of care upon discharge as outlined.
--- NOTE | 2016-07-05 07:43 | PN- Housestaff ---
GLEN TELLES,[facility] 07/05/16 0743: Subjective Follow-up For: Acute diastolic congestive heart failure Diabetes mellitus type 2 Elevated globulin gap Tele-Events Since Last Visit: Normal sinus rhythm, rate 74-86 PVC all night Subjective: The patient was seen and examined this morning. Language barrier affects history taking. he endourses no complaint except for 2 movement of loose stool yesterday and today morning. Stool color is brown, no blood, denied any abdominal pain, nausea or vomiting. He is able to mobilize freely without any issues, denied dizziness. The patient was laying in his bed and had his breakfast without any issues. Review of Systems Constitutional: Denies: no symptoms. Objective Last 24 Hrs of Vital Signs/I&O Vital Signs Date Time Temp Pulse Resp B/P Pulse O2 O2 Flow FiO2 Ox Delivery Rate 07/05 0928 97.6 98 20 118/64 91 Nasal 2.0L Cannula 07/05 0905 88 118/70 07/05 0905 88 118/70 07/05 0800 95 Nasal 2.0L Cannula 07/05 0018 97.9 81 20 118/70 94 Nasal Cannula 07/05 0000 96 Nasal 2.0L Cannula 07/04 2127 112/70 07/04 1600 Nasal 2.0L Cannula 07/04 1538 97.5 91 20 120/72 93 Nasal 2.0L Cannula Intake & Output 07/05 1600 07/05 0800 07/05 0000 Intake Total 100 600 Output Total 500 Balance -400 600 Intake, Oral 100 600 Number 1 Bowel Movements Output, Urine 500 Patient 77.621 kg Weight Physical Exam General Appearance: Alert, Oriented X3, Cooperative, No Acute Distress Skin: No Rashes, No Breakdown HEENT: Atraumatic, PERRLA, EOMI, Mucous Membr. moist/pink Neck: Supple Cardiovascular: Regular Rate, Normal S1, Normal S2, No Murmurs Lungs: Clear to Auscultation, Normal Air Movement Abdomen: Normal Bowel Sounds, Soft, No Tenderness Neurological: Normal Gait, Normal Speech, Strength at 5/5 X4 Ext, Normal Tone, Sensation Intact, Cranial Nerves 3-12 NL Extremities: no lower extremity edema Current Medications: Current Medications Sig/Lenny Start time Last Medication Dose Route Stop Time Status Admin Acetaminophen 650 MG Q6P PRN 07/01 0230 AC PO Benzonatate 100 MG Q8 07/03 0605 AC 07/05 PO 1453 Docusate Sodium 100 MG DAILY NEEDED PRN 07/01 2330 AC 07/02 PO 0109 Enoxaparin Sodium 40 MG DAILY 07/01 1000 AC 07/05 SC 0857 Furosemide 40 MG DAILY 07/05 1000 AC 07/05 PO 0855 Levothyroxine Sodium 0.2 MG DAILY AC 07/01 0700 AC 07/05 PO 0518 Lisinopril 20 MG DAILY 07/01 1000 AC 07/05 PO 0905 Methotrexate 5 MG QTHURS 07/07 1000 AC PO Metoprolol Tartrate 12.5 MG BID 07/02 1437 AC 07/05 PO 0905 Oxycodone HCl 5 MG Q6P PRN 07/01 0230 AC PO Patient Medication 1 ED .STK-MED ONE 07/05 1412 [place] Teaching ED 07/05 1413 Repaglinide 0.5 MG 0800,1200,1700 07/02 1215 AC 07/05 PO 1659 Last 24 Hrs of Lab/Thomas Results Last 24 Hrs of Labs/Mics: Laboratory Tests 07/05/16 0705: Anion Gap 10, Estimated GFR > 60, BUN/Creatinine Ratio 29.1 H, Magnesium 1.7, CBC w Diff NO MAN DIFF REQ, RBC 3.76 L, MCV 75.4 L, MCH 24.2 L, RDW 20.7 H, MPV 6.8 L, Gran % 52.8, Lymphocytes % 33.3, Monocytes % 13.1 H, Eosinophils % 0.4, Basophils % 0.4, Absolute Granulocytes 1.9, Absolute Lymphocytes 1.2, Absolute Monocytes 0.5, Absolute Eosinophils 0, Absolute Basophils 0, PUBS MCHC 32.2 L Assessment/Plan Assessment: 75 y/o M with PMHx of diastolic CHF, rheumatoid arthritis and prostate cancer s/ p hormonal and radiation therapy who is admitted for acute diastolic CHF. #Acute diastolic CHF: SOB much improved today. * Cardiology following. Appreciate their recs. * Continue Lasix 40 mg to PO today. * Continue telemetry monitoring. * Continue to monitor daily weight and I/Os. * Continue metoprolol 12.5 mg PO BID. * Cardiology outpatient follow up with consideration to do imaging stress test to exclude any significant ischemia #New chest x-ray finding of nodularity/consolidation/atelectasis * Cardiology recommendation to repeat chest x-ray given history of cough. * Chest x-ray showed atelectasis, consolidation and nodularity 1. Pulmonary hypoinflation. Interval development of airspace consolidation within the right upper lobe. This could reflect atelectasis given low lung volumes versus pneumonia. On lateral view of the chest, there is a 4.3 cm masslike region of consolidation, not definitely seen on recent chest x-rays or a prior chest CT dating back to 08/11/2015. This could reflect infection or round atelectasis given findings on prior chest CT. Contrast-enhanced chest CT would be helpful in further evaluation. 2. Cardiomegaly. Small bilateral pleural effusions. Prominent bilateral interstitial lung markings, suspicious for interstitial pulmonary edema. This constellation of findings is suggestive of congestive heart failure and volume overload. 3. Nodular opacity within the right midlung measuring 1.2 cm, new relative to the prior exam.Potential discharge home tomorrow. * Patient discharge was held, discussed with patient's son the new chest x-ray findings * CT chest without contrast was ordered stat #T2DM * Blood sugars have been running low, jimi of 85 overnight, highest 165 over the last 24 hours. * Endocrinology following. Appreciate their recs. * Novolog SSI TIDAC/QHS discontinued. * Continue Prandin 0.5 mg PO TIDAC. * Will discharge patient on Prandin 0.5 mg PO TIDAC, hold med if patient skips a meal. * Follow up with Dr. Hutchison as outpatient. #Elevated globulin gap: Globulin gap of 5.9. Concerning for multiple myeloma. * SPEP, UPEP and immunofixation pending. * Will give outpatient hematology referral. Diet: Consistent Carbohydrate 2 with 2 g Na restriction Electrolytes: Replete to K > 4 and Mg > 2 DVT PPx: Lovenox and ALPs CODE: FULL Problem List: 1. Elevated serum globulin level 2. Diabetes 3. Congestive heart failure Pain Ratin Pain Location: n/a Pain Goal: Remain pain free Pain Plan: Roxicodone 5 mg PO Q6H PRN for severe pain (scale 7-10) Tylenol 650 mg PO Q6H PRN for mild pain (scale 1-3) Tomorrow's Labs & Rationales: CBC at that H&H BMP for electrolyte and kidney function VICTORINO OBRIEN MD 07/05/16 1844: Attending MD Review Statement Attending Statement Attending MD Statement: examined this patient, discuss w/resident/PA/CLAM SORTER, agreed w/resident/PA/CLAM SORTER, discussed with family, reviewed EMR data (avail), discussed with nursing, discussed with case mgmt, reviewed images, amended to note Attending Assessment/Plan: The patient was seen and discussed with house staff. Agree with the assessment and plan of care.
[2016-07-05 08:08] LABS: ABSOLUTE BASOPHIL COUNT 0 /CUMM (0.0-0.2); ABSOLUTE EOSINOPHIL COUNT 0 /CUMM (0.0-0.7); ABSOLUTE GRANULOCYTE CT 1.9 /CUMM (1.4-6.5); ABSOLUTE LYMPH COUNT 1.2 /CUMM (1.2-3.4); ABSOLUTE MONOCYTE COUNT 0.5 /CUMM (0.10-0.60); BASOPHIL % 0.4 % (0.0-2.0); EOSINOPHIL % 0.4 % (0-5); GRANULOCYTE % 52.8 % (42.2-75.2); HEMATOCRIT 28.4 % (42-52); MEAN CORPUSCULAR HGB 24.2 PG (27.0-31.0); MEAN CORPUSCULAR HGB CONC 32.2 G/DL (33.0-37.0); MEAN CORPUSCULAR VOLUME 75.4 FL (80.0-94.0); MEAN PLATELET VOLUME 6.8 FL (7.4-10.4); PLATELET COUNT 110 /CUMM (130-400); RBC DISTRIBUTION WIDTH 20.7 % (11.5-14.5); RED BLOOD CELL CT 3.76 /CUMM (4.70-6.10); WHITE BLOOD CELL COUNT 3.7 /CUMM (4.8-10.8)
[2016-07-05 09:28] VITALS: BP 118/64
--- NOTE | 2016-07-05 12:12 | PN- Cardiology ---
Subjective Subjective: Events of the hol weekend reviewed. Mr. Lomas remains on telemetry in sinus rhythm with a heart rate ranging from 74-95 bpm with occasional ventricular ectopy. Overall, he feels significantly improved as far as his breathing and bilateral lower extremity edema are concerned. Objective Vital Signs and I&Os Vital Signs Date Time Temp Pulse Resp B/P Pulse O2 O2 Flow FiO2 Ox Delivery Rate 07/05 927 97.6 98 20 118/64 91 Nasal 2.0L Cannula 07/05 09 88 118/70 07/05 0905 88 118/70 07/05 0800 95 Nasal 2.0L Cannula 07/05 0018 97.9 81 20 118/70 94 Nasal Cannula 07/05 0000 96 Nasal 2.0L Cannula 07/04 2127 112/70 07/04 1600 Nasal 2.0L Cannula 07/04 1538 97.5 91 20 120/72 93 Nasal 2.0L Cannula Intake & Output 07/05 1600 07/05 0800 07/05 0000 07/04 1600 07/04 0800 07/04 0000 Intake Total 100 600 480 130 450 Output Total 500 500 300 0 Balance -400 600 -20 -170 450 Intake, IV 10 10 Intake, Oral 100 600 480 120 440 Number 1 0 Bowel Movements Output, Urine 500 500 300 0 Patient 171 lb 171 lb 171 lb Weight Physical Exam: Well-developed, well-nourished elderly male in no acute distress. Vital signs: See above. HEENT: Normocephalic, atraumatic, EOMI, moist mucous membranes. Neck: No JVD, no bruits. Lungs: Few bibasilar crackles. Heart: S1, S2 with no murmur, gallop, or rub appreciated. PMI fifth ICS at [facility]. Abdomen: Soft, nontender, positive bowel sounds. Extremities: No lower extremity edema. Current Medications: Current Medications Sig/Lenny Start time Last Medication Dose Route Stop Time Status Admin Acetaminophen 650 MG Q6P PRN 07/01 0230 AC PO Benzonatate 100 MG Q8 07/03 0605 AC 07/05 PO 0518 Docusate Sodium 100 MG DAILY NEEDED PRN 07/01 2330 AC 07/02 PO 0109 Enoxaparin Sodium 40 MG DAILY 07/01 1000 AC 07/05 SC 0857 Furosemide 40 MG DAILY 07/05 1000 AC 07/05 PO 0855 Furosemide 40 MG DAILY 07/01 1000 DC 07/04 IV 0810 Levothyroxine Sodium 0.2 MG DAILY AC 07/01 0700 AC 07/05 PO 0518 Lisinopril 20 MG DAILY 07/01 1000 AC 07/05 PO 0905 Magnesium Oxide 400 MG ONE ONE 07/04 1630 DC 07/04 PO 07/04 1631 1702 Methotrexate 5 MG QTHURS 07/07 1000 AC PO Metoprolol Tartrate 12.5 MG BID 07/02 1437 AC 07/05 PO 0905 Oxycodone HCl 5 MG Q6P PRN 07/01 0230 AC PO Potassium Chloride 40 MEQ ONCE ONE 07/04 1545 DC 07/04 PO 07/04 1546 1702 Repaglinide 0.5 MG 0800,1200,1700 07/02 1215 AC 07/05 PO 0853 Results Last 48 Hrs of Labs/Mics: Laboratory Tests 07/05/16 0705: Anion Gap 10, Estimated GFR > 60, BUN/Creatinine Ratio 29.1 H, Magnesium 1.7, CBC w Diff NO MAN DIFF REQ, RBC 3.76 L, MCV 75.4 L, MCH 24.2 L, RDW 20.7 H, MPV 6.8 L, Gran % 52.8, Lymphocytes % 33.3, Monocytes % 13.1 H, Eosinophils % 0.4, Basophils % 0.4, Absolute Granulocytes 1.9, Absolute Lymphocytes 1.2, Absolute Monocytes 0.5, Absolute Eosinophils 0, Absolute Basophils 0, PUBS MCHC 32.2 L 07/04/16 0610: Anion Gap 7, Estimated GFR > 60, BUN/Creatinine Ratio 28.2 H, Magnesium 1.7 Recent Imaging Studies: CXR (07/02/2016) Cardiomegaly and persistent congestive heart failure. Small pleural effusions appear slightly decreased in size compared to 06/30/2016. Assessment/Plan Assessment/Plan Elderly male recently diagnosed with diabetes mellitus and placed on insulin therapy who presents with progressive shortness of breath, orthopnea, cough, and lower extremity edema with clinical and radiographic evidence of heart failure. The etiology for his heart failure is presently unclear, but although he had normal wall thickness observed on his most recent echocardiogram, he also had evidence of stage III diastolic dysfunction. He also has a recently diagnosed risk equivalent and has multiple risk factors for coronary artery disease which may be responsible for his presentation secondary to ischemia. Overall, he is feeling improved following diuresis, however, he has had a positive fluid balance over the past 48 hours and has bibasilar crackles on physical exam today. His son also mentioned that he has had a cough over the weekend without any associated fever, chills, etc. Would repeat CXR prior to discharge. Plan will be to follow-up on an outpatient basis and perform an imaging stress test to help exclude significant ischemia. Continue telemetry? Yes
--- NOTE | 2016-07-05 14:42 | RADIOLOGY REPORT ---
EXAMINATION: XR CHEST CLINICAL INFORMATION: Cough. Evaluate for pneumonia. COMPARISON: Multiple prior chest x-rays dating back to 08/12/2015. CTA chest 08/11/2015. TECHNIQUE: PA and lateral views of the chest were obtained. FINDINGS: PA and lateral views of the chest demonstrate interval development of focal airspace consolidation within the right upper lobe, suspicious for pneumonia. There is also a new nodular opacity within the right midlung measuring 1.2 cm, not definitely seen on the prior exam. There are prominent bilateral interstitial lung markings which could reflect interstitial pulmonary edema. On lateral view of the chest, there is a masslike region of consolidation measuring 4.3 cm, not definitely seen on prior chest x-ray or prior CTA of the chest. Blunting of the bilateral costophrenic angles is suggestive of small bilateral pleural effusions. Cardiac mediastinal contours are stable and there is stable prominence of the cardiac silhouette with mild central venous congestion. No pneumothoraces are identified. Soft tissues appear unremarkable. No acute osseous abnormality. IMPRESSION: 1. Pulmonary hypoinflation. Interval development of airspace consolidation within the right upper lobe. This could reflect atelectasis given low lung volumes versus pneumonia. On lateral view of the chest, there is a 4.3 cm masslike region of consolidation, not definitely seen on recent chest x-rays or a prior chest CT dating back to 08/11/2015. This could reflect infection or round atelectasis given findings on prior chest CT. Contrast-enhanced chest CT would be helpful in further evaluation. 2. Cardiomegaly. Small bilateral pleural effusions. Prominent bilateral interstitial lung markings, suspicious for interstitial pulmonary edema. This constellation of findings is suggestive of congestive heart failure and volume overload. 3. Nodular opacity within the right midlung measuring 1.2 cm, new relative to the prior exam.
--- NOTE | 2016-07-05 14:43 | NUR ---
NURSING NOTE; PT ON 2L NC. AT REST O2 95%. PT CHECKED ON RA AT REST. AFTER 3-4 MINUTES O2 SAT DROPPED TO 87%. PT ASYMPTOMATIC. PLACED BACK ON 2L NC WITH O2 SAT NOW 94%. AMBULATED ON RA. AFTER SHORT WALK, O2 SATS DROPPED TO 83%. PT BROUGHT BACK TO ROOM. PALCED BACK ON 2L.
--- NOTE | 2016-07-05 15:07 | NUR ---
Received page from RN that patient's son was here and asking to speak with RN about diet as pt may discharge today. Visited with son and discussed meals/foods that pt eats. Son reports he cooks for his parents and will make sure he has proper portions of CHO. Son has RD contact information and encouraged to call with further questions.
[2016-07-05 15:30] VITALS: BP 118/70
[2016-07-05 21:23] VITALS: BP 126/70
--- NOTE | 2016-07-05 21:49 | CT SCAN REPORT ---
EXAMINATION: CT CHEST WITHOUT CONTRAST CLINICAL INFORMATION: Congestive heart failure. No nodularity and consolidation on recent chest x-ray. COMPARISON: CTA chest 08/04/2015 and 08/11/2015. Portable chest x-ray 07/05/2016. TECHNIQUE: Multidetector volumetric CT imaging of the chest was done. Axial MIP volume rendering provided. Sagittal and coronal reformatted images were obtained. DLP: 247 mGy-cm. FINDINGS: LINE ASSEMBLER: Head Setter view of the chest demonstrates cardiomegaly and bilateral pleural effusions, right greater than left. LUNGS: Evaluation of the lung parenchyma demonstrates diffuse smooth interlobular septal thickening, indicative of interstitial pulmonary edema. There are partially loculated small bilateral pleural effusions, right greater than left. Loculated fluid is identified within the right minor and right major fissures, accounting for recently described masslike opacities within the right lung on a similarly dated chest x-ray. Specifically, loculated fluid within the right minor fissure measures approximately 4.1 x 4.6 cm (series 3, image 26). Loculated fluid within the right major fissure measures approximately 1.9 x 2.6 cm. Loculated fluid is also identified within the left fissure. The central trachea is patent, without endobronchial obstructing lesions. Bibasilar patchy airspace opacities likely reflect atelectasis. Superimposed infection, notably within the right lower lobe is not excluded in the appropriate clinical setting. MEDIASTINUM: Stable cardiomegaly. Small pericardial effusion measuring 2.2 x 7.6 cm in transverse and AP dimensions respectively (series 2, image 38). This pericardial effusion appears minimally thick walled and may be minimally complex. Evaluation of the heart is again notable for crescentic foci of hyperdensity surrounding the ascending thoracic aorta, corresponding to the patient's known aortic intramural hematoma. There is aneurysmal dilatation of the ascending thoracic aorta which is visualized measuring 4.0 x 4.2 cm in transverse and AP dimensions respectively; previously, 3.8 x 4.0 cm. The descending thoracic aorta is normal in caliber at the level of the main pulmonary artery. There are scattered coronary artery calcifications. Hypoattenuation of the blood pool relative to myocardium is suggestive of underlying anemia. Subcentimeter mediastinal lymph nodes visualized measuring up to 1 cm in short axis dimension within the precarinal region, the aortopulmonary window as well as right paratracheal region. These lymph nodes are entirely nonspecific. PLEURA: As noted above, there are small bilateral pleural effusions, right greater than left. These pleural effusions appear partially loculated. No pneumothoraces are identified. AXILLA: No significant axillary adenopathy. UPPER ABDOMEN: No acute findings within the upper abdomen. OSSEOUS STRUCTURES: No acute osseous abnormality. IMPRESSION: 1. Evidence of congestive heart failure characterized by smooth interlobular septal thickening, cardiomegaly and partially loculated bilateral pleural effusions. Of note, loculated fluid is identified within the right minor and right major fissures, accounting for recently described masslike opacities within the right lung on a similarly dated chest x-ray. Specifically, loculated fluid within the right minor fissure measures 4.1 x 4.6 cm, corresponding to the recently described masslike region of consolidation within the right upper lobe on a similarly dated chest x-ray. Minimal loculated fluid is also identified within the left fissure. 2. Small pericardial effusion measuring 2.2 x 7.6 cm in transverse and AP dimensions respectively, slightly increased relative to the prior examination. This pericardial effusion appears minimally thick-walled and may be mildly complex. 3. Crescentic hyperdensity surrounding the ascending thoracic aorta, corresponding to the patient's previously noted aortic intramural hematoma. 4. Aneurysmal dilatation of the ascending thoracic aorta, as described above. 5. Patchy airspace opacities within the bilateral lung bases, notably within the right lung base could reflect atelectasis although superimposed infection cannot be excluded in the appropriate clinical setting.
[2016-07-05 22:59] VITALS: BP 108/62
--- NOTE | 2016-07-06 06:37 | PN- Housestaff ---
[facility] 07/06/16 0636: Subjective Follow-up For: Loculated pleural effusion Acute diastolic congestive heart failure Diabetes mellitus type 2 Elevated globulin gap Tele-Events Since Last Visit: Sinus rhythm, rate 70-80, no overnight events Subjective: Patient was seen and examined this morning, offered no complaint except nasal dryness from oxygen flow, on 2 L oxygen with saturation 90% no overnight events reported by the patient or the nurses. No acute distress, vital signs are stable. At lunchtime, the patient had choking attack when he started to vomit while having his lunch, oxygen desat to 80%. Review of Systems Constitutional: Denies: chills, fever. Cardiovascular: Denies: chest pain, palpitations. Respiratory: Denies: cough. Gastrointestinal: Denies: constipation, diarrhea, nausea, vomiting. Genitourinary: Denies: dysuria. Objective Last 24 Hrs of Vital Signs/I&O Vital Signs Date Time Temp Pulse Resp B/P Pulse O2 O2 Flow FiO2 Ox Delivery Rate 07/06 0900 Nasal 3.0L Cannula 07/06 0828 97.6 98 20 126/60 90 Nasal 2.0L Cannula 07/06 0800 92 130/60 07/06 0800 92 130/60 07/06 0000 Nasal 2.0L Cannula 07/05 2259 97.8 80 20 108/62 96 Nasal Cannula 07/05 2123 83 126/70 07/05 2119 90 126/70 07/05 1648 93 Nasal 2.0L Cannula 07/05 1530 97.6 89 20 118/70 93 Nasal 2.0L Cannula Intake & Output 07/06 1600 07/06 0800 07/06 0000 Intake Total 250 440 Output Total 300 Balance -50 440 Intake, IV 0 Intake, Oral 250 440 Output, Urine 300 Patient 139.253 kg Weight Physical Exam General Appearance: Alert, Oriented X3, Cooperative, No Acute Distress Skin: No Rashes, No Breakdown, No Significant Lesion HEENT: Atraumatic, PERRLA, EOMI, Mucous Membr. moist/pink Neck: Supple, No JVD Cardiovascular: Regular Rate, Normal S1, Normal S2, No Murmurs Lungs: bilateral basilar and lateral infra axillary crackles Abdomen: Normal Bowel Sounds, Soft, No Tenderness Neurological: Normal Speech, Strength at 5/5 X4 Ext, Normal Tone, Sensation Intact, Cranial Nerves 3-12 NL, Reflexes 2+ Extremities: No Clubbing, No Cyanosis, No Edema, Normal Pulses Assessment/Plan Assessment: 75 y/o M with PMHx of diastolic CHF, rheumatoid arthritis and prostate cancer s/ p hormonal and radiation therapy who is admitted for acute diastolic CHF. #Acute diastolic CHF: SOB much improved today. * Cardiology following. Appreciate their recs. * Continue Lasix 40 mg to PO today. * Continue telemetry monitoring. * Continue to monitor daily weight and I/Os. * Continue metoprolol 12.5 mg PO BID. * Cardiology outpatient follow up with consideration to do imaging stress test to exclude any significant ischemia #New chest x-ray finding of nodularity/consolidation/atelectasis * Cardiology recommendation to repeat chest x-ray given history of cough. * Chest x-ray showed atelectasis, consolidation and nodularity 1. Pulmonary hypoinflation. Interval development of airspace consolidation within the right upper lobe. This could reflect atelectasis given low lung volumes versus pneumonia. On lateral view of the chest, there is a 4.3 cm masslike region of consolidation, not definitely seen on recent chest x-rays or a prior chest CT dating back to 08/11/2015. This could reflect infection or round atelectasis given findings on prior chest CT. Contrast-enhanced chest CT would be helpful in further evaluation. 2. Cardiomegaly. Small bilateral pleural effusions. Prominent bilateral interstitial lung markings, suspicious for interstitial pulmonary edema. This constellation of findings is suggestive of congestive heart failure and volume overload. 3. Nodular opacity within the right midlung measuring 1.2 cm, new relative to the prior exam.Potential discharge home tomorrow. * Will get pulmonary evaluation * We started Unasyn IV every 6 the setting of chocking and aspiration * Patient was kept nothing by mouth for swallowing evaluation, patient passed swallowing evaluation without any problems, will start his regular diet and will be reevaluated again tomorrow morning * Will hold for chest x-ray for now #T2DM * Blood sugars have been running low, jimi of 85 overnight, highest 165 over the last 24 hours. * Endocrinology following. Appreciate their recs. * Novolog SSI TIDAC/QHS discontinued. * Continue Prandin 0.5 mg PO TIDAC. * Will discharge patient on Prandin 0.5 mg PO TIDAC, hold med if patient skips a meal. * Follow up with Dr. Hutchison as outpatient. #Elevated globulin gap: Globulin gap of 5.9. Concerning for multiple myeloma. * SPEP, UPEP and immunofixation pending. * Will give outpatient hematology referral. Diet: Consistent Carbohydrate 2 with 2 g Na restriction Electrolytes: Replete to K > 4 and Mg > 2 DVT PPx: Lovenox and ALPs CODE: FULL Problem List: 1. Elevated serum globulin level 2. Congestive heart failure 3. Diabetes Pain Ratin Pain Location: none Pain Goal: Remain pain free Pain Plan: Roxicodone 5 mg PO Q6H PRN for severe pain (scale 7-10) Tylenol 650 mg PO Q6H PRN for mild pain (scale 1-3) Tomorrow's Labs & Rationales: CBC at that H&H BMP for electrolyte and kidney function VICTORINO OBRIEN MD 07/06/16 5704: Attending MD Review Statement Attending Statement Attending MD Statement: examined this patient, discuss w/resident/PA/TROUBLE LOCATER, agreed w/resident/PA/TROUBLE LOCATER, discussed with family, reviewed EMR data (avail), discussed with nursing, discussed with case mgmt, reviewed images, amended to note Attending Assessment/Plan: The patient was seen and discussed with house staff. Agree with the plan of care as outlined.
[2016-07-06 08:15] LABS: ABSOLUTE BASOPHIL COUNT 0 /CUMM (0.0-0.2); ABSOLUTE EOSINOPHIL COUNT 0 /CUMM (0.0-0.7); ABSOLUTE GRANULOCYTE CT 2.4 /CUMM (1.4-6.5); ABSOLUTE LYMPH COUNT 1.6 /CUMM (1.2-3.4); ABSOLUTE MONOCYTE COUNT 0.5 /CUMM (0.10-0.60); BASOPHIL % 0.7 % (0.0-2.0); EOSINOPHIL % 0.5 % (0-5); GRANULOCYTE % 52.7 % (42.2-75.2); HEMATOCRIT 29.7 % (42-52); MEAN CORPUSCULAR HGB 24.4 PG (27.0-31.0); MEAN CORPUSCULAR HGB CONC 32.4 G/DL (33.0-37.0); MEAN CORPUSCULAR VOLUME 75.3 FL (80.0-94.0); MEAN PLATELET VOLUME 6.9 FL (7.4-10.4); PLATELET COUNT 109 /CUMM (130-400); RED BLOOD CELL CT 3.95 /CUMM (4.70-6.10); WHITE BLOOD CELL COUNT 4.6 /CUMM (4.8-10.8)
[2016-07-06 08:28] VITALS: BP 126/60
--- NOTE | 2016-07-06 13:23 | NUR ---
THE PATIENT EXPERIENCED NAUSEA AND INABILITY TO CLEAR AIRWAY. PATIENT WAS SUCTIONED WITH A YANKAUER, O2 SATURATIONS 85-87%. DR. ALEXANDER CALLED TO BEDSIDE TO EVALUATE. SPPECH / RT / LASIX / UNASYN / CULTURES ORDERED. PATIENT PLACED ON 5L SUPPLEMENTAL O2, O2 SATS 94%. WILL CONTINUE TO MONITOR.
[2016-07-06 17:03] VITALS: BP 100/60
--- NOTE | 2016-07-06 20:01 | Cons- Pulmonary ---
General Information and HPI Consulting Request Date of Consult: 07/06/16 Requested By: Med team History of Present Illness: Mr. Chris Lomas is a 75-year-old male of Eastern ([place]) descent with a history of right sided stroke at age 45 years complicated by subsequent GI ulceration secondary to aspirin therapy requiring endoscopic intervention, previously treated dyslipidemia, hypertension, hypothyroidism, gastroesophageal reflux disease, rheumatoid arthritis for which he is on methotrexate, prostate carcinoma for which he is s/p hormone and radiation therapy, and previous hemolytic anemia, mild left ventricular dysfunction with EF 50-55% and stage III diastolic dysfunction by echocardiogram (11/16/2015), and pericardial tamponade discovered while he was having a routine outpatient echocardiogram performed that ultimately led to admission (08/04-08/12/2015) and urgent pericardial window by CT surgery (Robbie Arevalo M.D.) who now presents with complaints of progressive shortness of breath with clinical and radiographic evidence of heart failure. Pt has had diuresis but was noted to have aspiration and coughin and cxr did show abnormality and hence this consult He does have rheumatoid and mtx and hence immunosuppresed REcent diabetes Ongoing diuresis On unasyn Review of Systems Constitutional: Reports: malaise, weakness. Denies: chills, diaphoresis, fever. EENTM: Denies: visual changes, hearing changes. Cardiovascular: Reports: edema, orthopena, peripheral edema. Denies: chest pain, palpitations, syncope. Respiratory: Reports: cough, orthopnea, short of breath, sputum production. Denies: hemoptysis, stridor, wheezing. GI: Denies: abdominal pain, nausea, changes in stool, vomiting. Genitourinary: Denies: discharge, dysuria, nocturia. Musculoskeletal: Denies: back pain, joint pain. Skin: Denies: change in skin color, change in hair/nails, lesions, rash. Neurological/Psychological: Reports: headache, weakness. Denies: numbness, paresthesia, tingling, tremors. Hematologic/Endocrine: Denies: bruising, bleeding, polyuria, polydipsia. Allergies/Medications Allergies: Coded Allergies: aspirin (Mild, ULCER 10/13/15) Home Med List: Enalapril Maleate 20 MG TAB 1 TAB PO DAILY HTN (Reported) Folic Acid 1 MG TABLET 2 MG PO DAILY SUPPLEMENT (Reported) Furosemide 40 MG TABLET 1 TAB PO DAILY FLUID RETENTION Levothyroxine Sodium 0.2 MG TAB 1 TAB PO DAILY THYROID (Reported) Methotrexate 2.5 MG TABLET 5 MG PO QTHURS RHEUMATOID ARTHRITIS (Reported) Metoprolol Tartrate 25 MG TABLET 0.5 TAB PO BID HEART HEALTH Repaglinide (Prandin) 0.5 MG TABLET 1 TAB PO TIDAC DIABETES Hold prandin if you skip a meal Current Medications: Current Medications Sig/Lenny Start time Last Medication Dose Route Stop Time Status Admin Acetaminophen 650 MG Q6P PRN 07/01 0230 AC PO Al Hydroxide/Mg 30 ML .STK-MED ONE 07/05 2131 DC Hydroxide PO 07/05 2132 Al Hydroxide/Mg 30 ML Q4-6 PRN PRN 07/05 2130 AC 07/05 Hydroxide PO 2133 Albuterol Sulfate 3 ML BID 07/06 1434 AC 07/06 INH 1435 Ampicillin Sodium/ 3,000 MG Q6 07/06 1252 AC 07/06 Sulbactam Sodium IV 1756 Sodium Chloride 100 ML Benzonatate 100 MG Q8 07/03 0605 AC 07/06 PO 0533 Docusate Sodium 100 MG DAILY NEEDED PRN 07/01 2330 AC 07/02 PO 0109 Enoxaparin Sodium 40 MG DAILY 07/01 1000 AC 07/06 SC 0800 Furosemide 40 MG ONCE ONE 07/06 1300 DC 07/06 IV 07/06 1301 1320 Furosemide 40 MG DAILY 07/05 1000 AC 07/06 PO 0800 Levothyroxine Sodium 0.2 MG DAILY AC 07/01 0700 AC 07/06 PO 0533 Lisinopril 20 MG DAILY 07/01 1000 AC 07/06 PO 0800 Methotrexate 5 MG QTHURS 07/07 1000 AC PO Metoprolol Tartrate 12.5 MG BID 07/02 1437 AC 07/06 PO 0800 Oxycodone HCl 5 MG Q6P PRN 07/01 0230 AC PO Repaglinide 0.5 MG 0800,1200,1700 07/02 1215 AC 07/06 PO 1754 Sodium Chloride 2 SPRAY Q4P PRN 07/06 0800 AC NELSON Review of Systems Review of Systems Constitutional: Reports: see HPI. Past History Travel History Traveled to [place] past 21 day No Medical History Blood Transfusion Hx: Yes Neurological: CVA at age of 45 due to hypertension Cardiovascular: CHF (pericardial effusion), hypertension, CARDIOMEGALY Gastrointestinal: upper GI bleed Musculoskeletal: rheumatoid arthritis Endocrine: hypothyroidism Blood Disorders: anemia Cancer(s): prostate cancer Surgical History Surgical History: non-contributory Psychosocial History Where Do You Live? Home Who Do You Live With? spouse, child Services at Home: None Primary Language: Turkmen Smoking Status: Former Smoker (quick 22 years ago) ETOH Use: denies use Illicit Drug Use: denies illicit drug use Functional Ability ADLs Independent: dressing, eating, toileting, bathing. Ambulation: independent Exam & Diagnostic Data Last 24 Hrs of Vital Signs/I&O Vital Signs Date Time Temp Pulse Resp B/P Pulse O2 O2 Flow FiO2 Ox Delivery Rate 07/06 1703 97.9 112 20 100/60 94 Nasal 3.0L Cannula 07/06 1613 Nasal 3.0L Cannula 07/06 0900 Nasal 3.0L Cannula 07/06 0828 97.6 98 20 126/60 90 Nasal 2.0L Cannula 07/06 0800 92 130/60 07/06 0800 92 130/60 07/06 0000 Nasal 2.0L Cannula 07/05 2259 97.8 80 20 108/62 96 Nasal Cannula 07/05 2123 83 126/70 07/05 2119 90 126/70 Intake & Output 07/06 1600 07/06 0800 07/06 0000 Intake Total 600 250 440 Output Total 300 Balance 600 -50 440 Intake, IV 0 Intake, Oral 600 250 440 Output, Urine 300 Patient 307 lb Weight Last 48 Hrs of Labs/Thomas: Laboratory Tests 07/06/16 1425: pH 7.40, pCO2 58 H, pO2 67 L, HCO3 35 H, ABG O2 Sat (Measured) 91.0 L, Carboxyhemoglobin 1.6, O2 Concentration % 3 LITERS, O2 Delivery Method N/C, Phlebotomy Draw Site RIGHT RADIAL 07/06/16 0640: Anion Gap 10, Estimated GFR > 60, BUN/Creatinine Ratio 28.0 H, CBC w Diff NO MAN DIFF REQ, RBC 3.95 L, MCV 75.3 L, MCH 24.4 L, RDW 21.0 H, MPV 6.9 L, Gran % 52.7, Lymphocytes % 34.2, Monocytes % 11.9 H, Eosinophils % 0.5, Basophils % 0.7, Absolute Granulocytes 2.4, Absolute Lymphocytes 1.6, Absolute Monocytes 0.5, Absolute Eosinophils 0, Absolute Basophils 0, PUBS MCHC 32.4 L 07/05/16 0705: Anion Gap 10, Estimated GFR > 60, BUN/Creatinine Ratio 29.1 H, Magnesium 1.7, CBC w Diff NO MAN DIFF REQ, RBC 3.76 L, MCV 75.4 L, MCH 24.2 L, RDW 20.7 H, MPV 6.8 L, Gran % 52.8, Lymphocytes % 33.3, Monocytes % 13.1 H, Eosinophils % 0.4, Basophils % 0.4, Absolute Granulocytes 1.9, Absolute Lymphocytes 1.2, Absolute Monocytes 0.5, Absolute Eosinophils 0, Absolute Basophils 0, PUBS MCHC 32.2 L Assessment/Plan Impression/Plan: Physical Exam: Well-developed, well-nourished elderly male in no acute distress. Vital signs: See above. HEENT: Normocephalic, atraumatic, EOMI, moist mucous membranes. Neck: No JVD, no bruits. Lungs: Bibasilar crackles. Heart: S1, S2 with no murmur, gallop, or rub appreciated. PMI fifth ICS at [facility]. Abdomen: Soft, nontender, positive bowel sounds. Extremities: Trace bilateral lower extremity edema. SIGNIFICANT DATA CT scan of the chest done yesterday showed significant congestive heart failure and loculated bilateral effusion in the fissure in the right minor fissure 4.1 x 4.6 and the loculated effusion in the left side. 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 Patient does also have in the posteriorly in the left lung apex of broadbase plurals base soft tissue opacity with calcified disease suggestive of previous granulomatous with previous lung nodules He also has had mild centrilobular paraseptal emphysema Cultures from the pericardial fluid did not grow any tuberculosis IMPRESSION This is a gentleman with history of rheumatoid arthritis on methotrexate hence immunosuppressed, significant diastolic heart disease, diabetes on insulin therapy, coronary artery disease, now has the following issues * Bilateral pulmonary edema as noted in the CAT scan suggestive of pulmonary edema from heart failure due to diastolic heart disease as his echocardiogram is suggestive of significant diastolic dysfunction consistent with restrictive hemodynamics. * He has had previous history of pericardial window and he has thickened pericardium this may be playing a role tamponade physiology is unlikely at this time however he might need to be evaluated for pericardectomy in the future as he might be developing constrictive pericaridal path causing sig diastolic dysfunction * Bilateral pulmonary opacities with noted aspiration in an immunosuppressed patient rule out aspiration pneumonitis which is also playing a role * Bilateral loculated pleural effusion in the fissure related to inflammatory process which he has and the pathology is prob the same as his the pathology which caused his pericardial effusion i.e. rheumatoid arthritis. His TB cultures have been negative in the past. There is no clear evidence suggestive of empyema or significant pulmonary malignancy * Significant baseline hypercarbia with a normal pH most likely related to obesity hypoventilation syndrome patient probably does have sleep apnea. His ABG 7.40/58 and 67 on 3 L. THis is suggestive of chronic hypercarbia (thyroid functions normal) * Significant peripheral opacity in the left side which appears to be chronic which does not seem to have increased in size in the recent past and calcified lymphadenopathy suggestive of previous granulomatous disease * Mild emphysema by CT scan Recommendation * Continue antibiotics which him to by mouth in the next 1-2 days * Continue aggressive diuretics * Patient might benefit from a right heart catheterization to evaluate for any constrictive pericarditis pathology. Patient does seem to have worsening diastolic heart dysfunction which may be related to his pericardium * Keep his O2 sat 91-92%. Keep his head of bed elevated. Patient needs to have outpatient evaluation for sleep apnea. * Check QuantiFERON gold test * Sputum culture if any * Keep his potassium more than 4 * Instead of intravenous Lasix tomorrow given one dose of 500 mg of Diamox * After his Diamox we will repeat an ABG in the evening to evaluate his bicarbonate * Discontinue his oxycodone and observe as this could also be causing his hypercarbia We will follow closely Consult Acknowledgment - Thank you for your consult request.
[2016-07-06 23:30] VITALS: BP 90/58
--- NOTE | 2016-07-07 07:15 | PN- Housestaff ---
GLEN TELLES,[facility] 07/07/16 0714: Subjective Follow-up For: Loculated pleural effusion Acute diastolic congestive heart failure Diabetes mellitus type 2 Elevated globulin gap Tele-Events Since Last Visit: Sinus rhythm First-degree heart block WI 0.24 Heart rate 68-74 Subjective: Patient was seen and examined this morning, no overnight events reported by the patient or the nurses. No acute distress, vital signs are stable. Patient is on 3 L oxygen with saturation 94% Review of Systems Constitutional: Denies: chills, fever. Cardiovascular: Denies: chest pain, palpitations. Respiratory: Denies: cough, short of breath. Gastrointestinal: Denies: abdominal pain, constipation, diarrhea, nausea. Genitourinary: Denies: dysuria. Objective Last 24 Hrs of Vital Signs/I&O Vital Signs Date Time Temp Pulse Resp B/P Pulse O2 O2 Flow FiO2 Ox Delivery Rate 07/07 851 82 112/64 07/07 0852 82 112/64 07/07 0807 97 Nasal 3.0L Cannula 07/07 08 97 Nasal 3.0L Cannula 07/07 08 97.8 69 20 110/60 96 Nasal Cannula 07/07 0000 Nasal 3.0L Cannula 07/06 2330 97.9 66 18 90/58 95 07/06 2105 80 07/06 2055 93 Nasal 3.0L Cannula 07/06 1703 97.9 112 20 100/60 94 Nasal 3.0L Cannula Intake & Output 07/07 1600 07/07 0800 07/07 0000 Intake Total 640 320 250 Output Total 700 425 700 Balance -60 -105 -450 Intake, IV 200 10 Intake, Oral 640 120 240 Output, Urine 700 425 700 Patient 77.791 kg Weight Physical Exam General Appearance: Alert, Oriented X3, Cooperative, No Acute Distress Skin: No Rashes, No Breakdown, No Significant Lesion Cardiovascular: Regular Rate, Normal S1, Normal S2, No Murmurs Lungs: right basialar occasional crepitation Abdomen: Normal Bowel Sounds, Soft, No Tenderness Neurological: Normal Speech, Strength at 5/5 X4 Ext, Normal Tone, Sensation Intact, Cranial Nerves 3-12 NL, Reflexes 2+ Extremities: No Clubbing, No Cyanosis, No Edema, Normal Pulses Assessment/Plan Assessment: 75 y/o M with PMHx of diastolic CHF, rheumatoid arthritis and prostate cancer s/ p hormonal and radiation therapy who is admitted for acute diastolic CHF. #Acute diastolic CHF: SOB much improved today. * Cardiology following. Appreciate their recs. * Lasix 40 mg to PO BID * Continue metoprolol 12.5 mg PO BID. * Continue to monitor daily weight and I/Os. * Cardiology outpatient follow up with consideration to do imaging stress test to exclude any significant ischemia #New chest x-ray finding of nodularity/consolidation/atelectasis * Chest x-ray showed atelectasis, consolidation and nodularity 1. Pulmonary hypoinflation. Interval development of airspace consolidation within the right upper lobe. This could reflect atelectasis given low lung volumes versus pneumonia. On lateral view of the chest, there is a 4.3 cm masslike region of consolidation, not definitely seen on recent chest x-rays or a prior chest CT dating back to 08/11/2015. This could reflect infection or round atelectasis given findings on prior chest CT. Contrast-enhanced chest CT would be helpful in further evaluation. 2. Cardiomegaly. Small bilateral pleural effusions. Prominent bilateral interstitial lung markings, suspicious for interstitial pulmonary edema. This constellation of findings is suggestive of congestive heart failure and volume overload. 3. Nodular opacity within the right midlung measuring 1.2 cm, new relative to the prior exam.Potential discharge home tomorrow. * pulmonary evaluation was obtained, appricate recom. will dose him diamox tonight instead of lasix, QuantiFERON goal test and sputum culture * patient was started on Unasyn IV every 6 the setting of aspiration (no fever, no WBC), abnormal barium swallowing evaluation, increase oxygen requirment to 4 l and desat to 80% yeasterday * Aced on barium swallowing evaluation test today the diet was changed to chopped and thick nectar liquid * Will hold for chest x-ray for now #T2DM * Endocrinology following. Appreciate their recs. * Continue Prandin 0.5 mg PO TIDAC. * Will discharge patient on Prandin 0.5 mg PO TIDAC, hold med if patient skips a meal. * Follow up with Dr. Hutchison as outpatient. #Elevated globulin gap: Globulin gap of 5.9. Concerning for multiple myeloma. * Protein electrophoresis showed 17% albumin, alpha 1 globulin 2%, alpha 2 globulin 7%, beta globulin 27% , gammaglobulins 47% * Consider hematology consultation Diet: Consistent Carbohydrate 2 chopped and thick nectar Electrolytes: Replete to K > 4 and Mg > 2 DVT PPx: Lovenox and ALPs CODE: FULL Problem List: 1. Elevated serum globulin level 2. Diabetes 3. Congestive heart failure 4. Acute diastolic CHF (congestive heart failure) 5. Aspiration into airway Pain Ratin Pain Location: none Pain Goal: Remain pain free Pain Plan: Roxicodone 5 mg PO Q6H PRN for severe pain (scale 7-10) Tylenol 650 mg PO Q6H PRN for mild pain (scale 1-3) Tomorrow's Labs & Rationales: CBC to monitor H&H and WBC BMP for electrolyte and kidney function Consulting Request: Consulting Specialty: Endocrinology Consulting Physician: Jt Hutchison MD Reason for Consult: management of DM type 2 VICTORINO OBRIEN MD 07/07/16 1725: Attending MD Review Statement Attending Statement Attending MD Statement: examined this patient, discuss w/resident/PA/[employer]GER [employer] 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 Agree with plan of care as outlined.
[2016-07-07 08:00] VITALS: BP 110/60
[2016-07-07 08:58] LABS: ABSOLUTE BASOPHIL COUNT 0 /CUMM (0.0-0.2); ABSOLUTE EOSINOPHIL COUNT 0 /CUMM (0.0-0.7); ABSOLUTE GRANULOCYTE CT 1.7 /CUMM (1.4-6.5); ABSOLUTE LYMPH COUNT 1.3 /CUMM (1.2-3.4); ABSOLUTE MONOCYTE COUNT 0.5 /CUMM (0.10-0.60); BASOPHIL % 0.7 % (0.0-2.0); EOSINOPHIL % 0.6 % (0-5); GRANULOCYTE % 47.7 % (42.2-75.2); HEMATOCRIT 26.6 % (42-52); MEAN CORPUSCULAR HGB 24.5 PG (27.0-31.0); MEAN CORPUSCULAR HGB CONC 32.5 G/DL (33.0-37.0); MEAN CORPUSCULAR VOLUME 75.4 FL (80.0-94.0); MEAN PLATELET VOLUME 7.1 FL (7.4-10.4); PLATELET COUNT 89 /CUMM (130-400); RBC DISTRIBUTION WIDTH 20.9 % (11.5-14.5); RED BLOOD CELL CT 3.54 /CUMM (4.70-6.10); WHITE BLOOD CELL COUNT 3.6 /CUMM (4.8-10.8)
--- NOTE | 2016-07-07 11:45 | PN- Pulmonary ---
Subjective HPI/Critical Care Issues: Undergoing swallow eval today Better Some diuresis Fatigue Objective Current Medications: Current Medications Sig/Lenny Start time Last Medication Dose Route Stop Time Status Admin Acetaminophen 650 MG Q6P PRN 07/01 0230 AC PO Acetazolamide 500 MG ONCE ONE 07/07 0600 DC 07/07 PO 07/07 0601 0545 Al Hydroxide/Mg 30 ML Q4-6 PRN PRN 07/05 2130 AC 07/05 Hydroxide PO 2133 Albuterol Sulfate 3 ML BID 07/06 1434 AC 07/07 INH 0752 Ampicillin Sodium/ 3,000 MG Q6 07/06 1252 AC 07/07 Sulbactam Sodium IV 0545 Sodium Chloride 100 ML Benzonatate 100 MG Q8 07/03 0605 AC 07/07 PO 0545 Docusate Sodium 100 MG DAILY NEEDED PRN 07/01 2330 AC 07/02 PO 0109 Enoxaparin Sodium 40 MG DAILY 07/01 1000 AC 07/07 SC 0852 Furosemide 40 MG 7:30 AM, & 4:30 PM 07/07 1630 IV Furosemide 40 MG ONCE ONE 07/06 1300 DC 07/06 IV 07/06 1301 1320 Furosemide 40 MG DAILY 07/05 1000 DC 07/06 PO 0800 Levothyroxine Sodium 0.2 MG DAILY AC 07/01 0700 AC 07/07 PO 0545 Lisinopril 20 MG DAILY 07/01 1000 AC 07/07 PO 0852 Methotrexate 5 MG QTHURS 07/07 1000 AC 07/07 PO 0848 Metoprolol Tartrate 12.5 MG BID 07/02 1437 AC 07/07 PO 0852 Oxycodone HCl 5 MG Q6P PRN 07/01 0230 DC PO Repaglinide 0.5 MG 0800,1200,1700 07/02 1215 AC 07/07 PO 0848 Sodium Chloride 2 SPRAY Q4P PRN 07/06 0800 AC NELSON Vital Signs & I&O Last 24 Hrs of Vitals and I&O: Vital Signs Date Time Temp Pulse Resp B/P Pulse O2 O2 Flow FiO2 Ox Delivery Rate 07/07 851 82 112/64 07/07 0852 82 112/64 07/07 0807 97 Nasal 3.0L Cannula 07/07 799 97 Nasal 3.0L Cannula 07/07 799 97.8 69 20 110/60 96 Nasal Cannula 07/07 0000 Nasal 3.0L Cannula 07/06 2330 97.9 66 18 90/58 95 07/06 2105 80 07/06 2054 93 Nasal 3.0L Cannula 07/06 1703 97.9 112 20 100/60 94 Nasal 3.0L Cannula 07/06 1613 Nasal 3.0L Cannula Intake & Output 07/07 1600 07/07 0800 07/07 0000 Intake Total 320 250 Output Total 425 700 Balance -105 -450 Intake, IV 200 10 Intake, Oral 120 240 Output, Urine 425 700 Patient 172 lb Weight Laboratory Tests 07/07 07/07 0805 0655 Blood Gas pH (7.35 - 7.45 PH) 7.41 pCO2 (35 - 45 TORR) 54 H pO2 (80 - 100 TORR) 87 HCO3 (21 - 28 MEQ/L) 33 H ABG O2 Sat (Measured) (>96.0 %) 95.0 L Carboxyhemoglobin (1.5 - 5.0 %) 0.8 L O2 Concentration % 3LPM O2 Delivery Method NC Chemistry Sodium (137 - 145 mmol/L) 133 L Potassium (3.5 - 5.1 mmol/L) 3.9 Chloride (98 - 107 mmol/L) 85 L Carbon Dioxide (22 - 30 mmol/L) 39 H Anion Gap (5 - 16) 9 BUN (9 - 20 mg/dL) 30 H Creatinine (0.7 - 1.2 mg/dL) 1.2 Estimated GFR (>60 ml/min) 59 L BUN/Creatinine Ratio (7 - 25 %) 25.0 Hematology CBC w Diff NO MAN DIFF REQ WBC (4.8 - 10.8 /CUMM) 3.6 L RBC (4.70 - 6.10 /CUMM) 3.54 L Hgb (14.0 - 18.0 G/DL) 8.6 L Hct (42 - 52 %) 26.6 L MCV (80.0 - 94.0 FL) 75.4 L MCH (27.0 - 31.0 PG) 24.5 L RDW (11.5 - 14.5 %) 20.9 H Plt Count (130 - 400 /CUMM) 89 L MPV (7.4 - 10.4 FL) 7.1 L Gran % (42.2 - 75.2 %) 47.7 Lymphocytes % (20.5 - 51.1 %) 37.3 Monocytes % (1.7 - 9.3 %) 13.7 H Eosinophils % (0 - 5 %) 0.6 Basophils % (0.0 - 2.0 %) 0.7 Absolute Granulocytes (1.4 - 6.5 /CUMM) 1.7 Absolute Lymphocytes (1.2 - 3.4 /CUMM) 1.3 Absolute Monocytes (0.10 - 0.60 /CUMM) 0.5 Absolute Eosinophils (0.0 - 0.7 /CUMM) 0 Absolute Basophils (0.0 - 0.2 /CUMM) 0 PUBS MCHC (33.0 - 37.0 G/DL) 32.5 L Miscellaneous Phlebotomy Draw Site LEFT RADIAL 07/06 07/06 1425 0640 Blood Gas pH (7.35 - 7.45 PH) 7.40 pCO2 (35 - 45 TORR) 58 H pO2 (80 - 100 TORR) 67 L HCO3 (21 - 28 MEQ/L) 35 H ABG O2 Sat (Measured) (>96.0 %) 91.0 L Carboxyhemoglobin (1.5 - 5.0 %) 1.6 O2 Concentration % 3 LITERS O2 Delivery Method N/C Chemistry Sodium (137 - 145 mmol/L) 132 L Potassium (3.5 - 5.1 mmol/L) 4.1 Chloride (98 - 107 mmol/L) 85 L Carbon Dioxide (22 - 30 mmol/L) 37 H Anion Gap (5 - 16) 10 BUN (9 - 20 mg/dL) 28 H Creatinine (0.7 - 1.2 mg/dL) 1.0 Estimated GFR (>60 ml/min) > 60 BUN/Creatinine Ratio (7 - 25 %) 28.0 H Hematology CBC w Diff NO MAN DIFF REQ WBC (4.8 - 10.8 /CUMM) 4.6 L RBC (4.70 - 6.10 /CUMM) 3.95 L Hgb (14.0 - 18.0 G/DL) 9.6 L Hct (42 - 52 %) 29.7 L MCV (80.0 - 94.0 FL) 75.3 L MCH (27.0 - 31.0 PG) 24.4 L RDW (11.5 - 14.5 %) 21.0 H Plt Count (130 - 400 /CUMM) 109 L MPV (7.4 - 10.4 FL) 6.9 L Gran % (42.2 - 75.2 %) 52.7 Lymphocytes % (20.5 - 51.1 %) 34.2 Monocytes % (1.7 - 9.3 %) 11.9 H Eosinophils % (0 - 5 %) 0.5 Basophils % (0.0 - 2.0 %) 0.7 Absolute Granulocytes (1.4 - 6.5 /CUMM) 2.4 Absolute Lymphocytes (1.2 - 3.4 /CUMM) 1.6 Absolute Monocytes (0.10 - 0.60 /CUMM) 0.5 Absolute Eosinophils (0.0 - 0.7 /CUMM) 0 Absolute Basophils (0.0 - 0.2 /CUMM) 0 PUBS MCHC (33.0 - 37.0 G/DL) 32.4 L Miscellaneous Phlebotomy Draw Site RIGHT RADIAL Microbiology Date/Time Procedure - Status Source Growth 07/06 1416 Blood Culture - RECD BLOOD 07/06 1400 Respiratory Culture - CAN LOWER RESP Cancelled: VOMIT REC'D IN STERILE CUP 07/06 1400 Gram Stain - CAN LOWER RESP Cancelled: VOMIT REC'D IN STERILE CUP 07/06 1400 Blood Culture - RECD BLOOD Impression/Plan Impression/Plan Impression/Plan: Physical Exam: Well-developed, well-nourished elderly male in no acute distress. Vital signs: See above. HEENT: Normocephalic, atraumatic, EOMI, moist mucous membranes. Neck: No JVD, no bruits. Lungs: Bibasilar crackles. Heart: S1, S2 with no murmur, gallop, or rub appreciated. PMI fifth ICS at [facility]. Abdomen: Soft, nontender, positive bowel sounds. Extremities: Trace bilateral lower extremity edema. SIGNIFICANT DATA CT scan of the chest done yesterday showed significant congestive heart failure and loculated bilateral effusion in the fissure in the right minor fissure 4.1 x 4.6 and the loculated effusion in the left side. 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 Patient does also have in the posteriorly in the left lung apex of broadbase plurals base soft tissue opacity with calcified disease suggestive of previous granulomatous with previous lung nodules He also has had mild centrilobular paraseptal emphysema Cultures from the pericardial fluid did not grow any tuberculosis IMPRESSION This is a gentleman with history of rheumatoid arthritis on methotrexate hence immunosuppressed, significant diastolic heart disease, diabetes on insulin therapy, coronary artery disease, now has the following issues * Bilateral pulmonary edema as noted in the CAT scan suggestive of pulmonary edema from heart failure due to diastolic heart disease as his echocardiogram is suggestive of significant diastolic dysfunction consistent with restrictive hemodynamics. * He has had previous history of pericardial window and he has thickened pericardium this may be playing a role tamponade physiology is unlikely at this time however he might need to be evaluated for pericardectomy in the future as he might be developing constrictive pericaridal path causing sig diastolic dysfunction * Bilateral pulmonary opacities with noted aspiration in an immunosuppressed patient rule out aspiration pneumonitis which is also playing a role * Bilateral loculated pleural effusion in the fissure related to inflammatory process which he has and the pathology is prob the same as his the pathology which caused his pericardial effusion i.e. rheumatoid arthritis. His TB cultures have been negative in the past. There is no clear evidence suggestive of empyema or significant pulmonary malignancy * Significant baseline hypercarbia with a normal pH most likely related to obesity hypoventilation syndrome patient probably does have sleep apnea. His ABG 7.40/58 and 67 on 3 L. THis is suggestive of chronic hypercarbia (thyroid functions normal) * Significant peripheral opacity in the left side which appears to be chronic which does not seem to have increased in size in the recent past and calcified lymphadenopathy suggestive of previous granulomatous disease * Mild emphysema by CT scan Recommendation * Continue antibiotics which him to by mouth in tommorow to augmentin * Continue aggressive diuretics, give diamox 500 this pm instead of lasix one dose (hco3 in the serum is 39 today) * Patient might benefit from a right heart catheterization to evaluate for any constrictive pericardial pathology. Patient does seem to have worsening diastolic heart dysfunction which may be related to his pericardium * Keep his O2 sat 91-92%. Keep his head of bed elevated. Patient needs to have outpatient evaluation for sleep apnea. * Check QuantiFERON gold test * Sputum culture if any * Keep his potassium more than 4 replace aggresively * Hold further narcotics We will follow closely
--- NOTE | 2016-07-07 12:06 | RADIOLOGY REPORT ---
EXAMINATION: XR MODIFIED BARIUM SWALLOW CLINICAL INFORMATION: History of choking and dysphagia. COMPARISON: Chest CT, 07/05/2016 TECHNIQUE: Fluoroscopic assistance was provided during a modified barium swallow performed in coordination with the speech pathology service. FLUOROSCOPY TIME: 1 minute, 6 seconds FINDINGS: The modified barium swallow examination was performed in cooperation with the speech pathologist using dynamic fluoroscopic imaging in a lateral projection. Normal swallowing function was observed during intake of applesauce, honey, nectar, bread and cracker. With intake of thin barium contrast, there were repeated episodes of tracheal penetration without elicitation of a cough reflex. IMPRESSION: Within intake of thin barium contrast, there were repeated episodes of tracheal penetration without cough reflux. Please refer to the speech pathology report regarding their assessment and treatment recommendations.
--- NOTE | 2016-07-07 14:10 | PN- Cardiology ---
Subjective Subjective: No specific complaints. On telemetry he has been in sinus rhythm with first-degree atrioventricular block with a heart rate varying between 68-76 beats per minute. Objective Vital Signs and I&Os Vital Signs Date Time Temp Pulse Resp B/P Pulse O2 O2 Flow FiO2 Ox Delivery Rate 07/07 08 82 112/64 07/07 0852 82 112/64 07/07 0807 97 Nasal 3.0L Cannula 07/07 799 97 Nasal 3.0L Cannula 07/07 799 97.8 69 20 110/60 96 Nasal Cannula 07/07 0000 Nasal 3.0L Cannula 07/06 2330 97.9 66 18 90/58 95 07/06 2105 80 07/06 2055 93 Nasal 3.0L Cannula 07/06 1703 97.9 112 20 100/60 94 Nasal 3.0L Cannula 07/06 1613 Nasal 3.0L Cannula Intake & Output 07/07 1600 07/07 0807/07 0000 07/06 1600 07/06 0800 07/06 0000 Intake Total 320 250 600 250 440 Output Total 425 700 300 Balance -105 -450 600 -50 440 Intake, IV 200 10 0 Intake, Oral 120 240 600 250 440 Output, Urine 425 700 300 Patient 172 lb 307 lb Weight Physical Exam: Well-developed, well-nourished elderly male in no acute distress. Vital signs: See above. HEENT: Normocephalic, atraumatic, EOMI, moist mucous membranes. Neck: No JVD, no bruits. Lungs: Few bibasilar crackles. Heart: S1, S2 with no murmur, gallop, or rub appreciated. PMI fifth ICS at [facility]. Abdomen: Soft, nontender, positive bowel sounds. Extremities: No lower extremity edema. Current Medications: Current Medications Sig/Lenny Start time Last Medication Dose Route Stop Time Status Admin Acetaminophen 650 MG Q6P PRN 07/01 0230 AC PO Acetazolamide 500 MG ONCE ONE 07/07 0600 DC 07/07 PO 07/07 06 0545 Al Hydroxide/Mg 30 ML Q4-6 PRN PRN 07/05 2130 AC 07/05 Hydroxide PO 2133 Albuterol Sulfate 3 ML BID 07/06 1434 AC 07/07 INH 0752 Ampicillin Sodium/ 3,000 MG Q6 07/06 1252 AC 07/07 Sulbactam Sodium IV 1151 Sodium Chloride 100 ML Benzonatate 100 MG Q8 07/03 0605 AC 07/07 PO 0545 Docusate Sodium 100 MG DAILY NEEDED PRN 07/01 2330 AC 07/02 PO 0109 Enoxaparin Sodium 40 MG DAILY 07/01 1000 AC 07/07 SC 0852 Furosemide 40 MG 7:30 AM, & 4:30 PM 07/07 1630 AC IV Furosemide 40 MG DAILY 07/05 1000 DC 07/06 PO 0800 Levothyroxine Sodium 0.2 MG DAILY AC 07/01 0700 AC 07/07 PO 0545 Lisinopril 20 MG DAILY 07/01 1000 AC 07/07 PO 0852 Methotrexate 5 MG QTHURS 07/07 1000 AC 07/07 PO 0848 Metoprolol Tartrate 12.5 MG BID 07/02 1437 AC 07/07 PO 0852 Oxycodone HCl 5 MG Q6P PRN 07/01 0230 DC PO Patient Medication 1 ED .STK-MED ONE 07/07 1307 DC Teaching ED 07/07 1308 Repaglinide 0.5 MG 0800,1200,1700 07/02 1215 AC 07/07 PO 1146 Sodium Chloride 2 SPRAY Q4P PRN 07/06 0800 AC NELSON Results Last 48 Hrs of Labs/Mics: Laboratory Tests 07/07/16 0805: pH 7.41, pCO2 54 H, pO2 87, HCO3 33 H, ABG O2 Sat (Measured) 95.0 L, Carboxyhemoglobin 0.8 L, O2 Concentration % 3LPM, O2 Delivery Method NC, Phlebotomy Draw Site LEFT RADIAL 07/07/16 0655: Anion Gap 9, Estimated GFR 59 L, BUN/Creatinine Ratio 25.0, CBC w Diff NO MAN DIFF REQ, RBC 3.54 L, MCV 75.4 L, MCH 24.5 L, RDW 20.9 H, MPV 7.1 L, Gran % 47.7, Lymphocytes % 37.3, Monocytes % 13.7 H, Eosinophils % 0.6, Basophils % 0.7, Absolute Granulocytes 1.7, Absolute Lymphocytes 1.3, Absolute Monocytes 0.5 , Absolute Eosinophils 0, Absolute Basophils 0, PUBS MCHC 32.5 L 07/06/16 1425: pH 7.40, pCO2 58 H, pO2 67 L, HCO3 35 H, ABG O2 Sat (Measured) 91.0 L, Carboxyhemoglobin 1.6, O2 Concentration % 3 LITERS, O2 Delivery Method N/C, Phlebotomy Draw Site RIGHT RADIAL 07/06/16 0640: Anion Gap 10, Estimated GFR > 60, BUN/Creatinine Ratio 28.0 H, CBC w Diff NO MAN DIFF REQ, RBC 3.95 L, MCV 75.3 L, MCH 24.4 L, RDW 21.0 H, MPV 6.9 L, Gran % 52.7, Lymphocytes % 34.2, Monocytes % 11.9 H, Eosinophils % 0.5, Basophils % 0.7, Absolute Granulocytes 2.4, Absolute Lymphocytes 1.6, Absolute Monocytes 0.5, Absolute Eosinophils 0, Absolute Basophils 0, PUBS MCHC 32.4 L Recent Imaging Studies: Modified barium swallow (07/07/2015) Within intake of thin barium contrast, there were repeated episodes of tracheal penetration without cough reflux. Please refer to the speech pathology report regarding their assessment and treatment recommendations. Assessment/Plan Assessment/Plan Elderly male recently diagnosed with diabetes mellitus and placed on insulin therapy who presents with progressive shortness of breath, orthopnea, cough, and lower extremity edema with clinical and radiographic evidence of heart failure. The etiology for his heart failure is presently unclear, but although he had normal wall thickness observed on his most recent echocardiogram, he also had evidence of stage III diastolic dysfunction. He also has a recently diagnosed risk equivalent and has multiple risk factors for coronary artery disease which may be responsible for his presentation secondary to ischemia. Plan will be to follow-up on an outpatient basis and perform an imaging stress test to help exclude significant ischemia. If there is evidence of ischemia on stress testing we will have him undergo combined right and left heart cardiac catheterization. If there is no evidence of ischemia we will consider a cardiac MRI to better assess the pericardium and possibly proceed with right heart catheterization. Continue telemetry? No
[2016-07-07 15:30] VITALS: BP 102/58
--- NOTE | 2016-07-07 22:36 | NUR ---
BEDTIME FINGERSTICK 221; NO COVERAGE AT BEDTIME; DR. FITO BYRNES NOTIFIED
[2016-07-08] VITALS: BP 92/58
[2016-07-08 07:52] LABS: ABSOLUTE BASOPHIL COUNT 0 /CUMM (0.0-0.2); ABSOLUTE EOSINOPHIL COUNT 0 /CUMM (0.0-0.7); ABSOLUTE GRANULOCYTE CT 1.9 /CUMM (1.4-6.5); ABSOLUTE LYMPH COUNT 1.5 /CUMM (1.2-3.4); ABSOLUTE MONOCYTE COUNT 0.3 /CUMM (0.10-0.60); BASOPHIL % 0.9 % (0.0-2.0); EOSINOPHIL % 0.7 % (0-5); GRANULOCYTE % 50.5 % (42.2-75.2); MEAN CORPUSCULAR HGB CONC 31.9 G/DL (33.0-37.0); MEAN CORPUSCULAR VOLUME 75.4 FL (80.0-94.0); MEAN PLATELET VOLUME 7.1 FL (7.4-10.4); PLATELET COUNT 97 /CUMM (130-400); RBC DISTRIBUTION WIDTH 20.9 % (11.5-14.5); RED BLOOD CELL CT 3.72 /CUMM (4.70-6.10); WHITE BLOOD CELL COUNT 3.9 /CUMM (4.8-10.8)
[2016-07-08 07:59] VITALS: BP 118/66
--- NOTE | 2016-07-08 08:54 | PN- Pulmonary ---
Subjective HPI/Critical Care Issues: Better on 2 litres Swallow francisco j noted Tolerating his diet Fatigued Objective Current Medications: Current Medications Sig/Lenny Start time Last Medication Dose Route Stop Time Status Admin Acetaminophen 650 MG Q6P PRN 07/01 0230 AC PO Acetazolamide 500 MG ONCE ONE 07/07 1700 DC 07/07 PO 07/07 1701 2049 Al Hydroxide/Mg 30 ML Q4-6 PRN PRN 07/05 2130 AC 07/05 Hydroxide PO 2133 Albuterol Sulfate 3 ML BID 07/06 1434 AC 07/07 INH 1830 Ampicillin Sodium/ 3,000 MG Q6 07/06 1252 AC 07/08 Sulbactam Sodium IV 0713 Sodium Chloride 100 ML Benzonatate 100 MG Q8 07/03 0605 AC 07/08 PO 0600 Docusate Sodium 100 MG DAILY NEEDED PRN 07/01 2330 AC 07/02 PO 0109 Enoxaparin Sodium 40 MG DAILY 07/01 1000 AC 07/07 SC 0852 Furosemide 40 MG 7:30 AM, & 4:30 PM 07/08 0730 AC 07/08 IV 0710 Furosemide 40 MG 7:30 AM, & 4:30 PM 07/07 1630 CAN IV Insulin Aspart 0 TIDAC/HS 07/07 2315 AC 07/07 SC 2315 Levothyroxine Sodium 0.2 MG DAILY AC 07/01 0700 AC 07/08 PO 0700 Lisinopril 20 MG DAILY 07/01 1000 AC 07/07 PO 0852 Methotrexate 5 MG QTHURS 07/07 1000 AC 07/07 PO 0848 Metoprolol Tartrate 12.5 MG BID 07/02 1437 AC 07/07 PO 2049 Omeprazole 20 MG DAILY AC 07/07 1423 AC 07/08 PO 0700 Patient Medication 1 ED .STK-MED ONE 07/07 1307 DC Teaching ED 07/07 1308 Repaglinide 0.5 MG 0800,1200,1700 07/02 1215 AC 07/08 PO 0755 Sodium Chloride 2 SPRAY Q4P PRN 07/06 0800 AC NELSON Vital Signs & I&O Last 24 Hrs of Vitals and I&O: Vital Signs Date Time Temp Pulse Resp B/P Pulse O2 O2 Flow FiO2 Ox Delivery Rate 07/08 758 97.8 87 20 118/66 92 Nasal Cannula 07/08 0000 Nasal 2.0L Cannula 07/08 0000 97.6 73 20 92/58 97 07/07 2049 116/58 07/07 1830 98 Nasal 3.0L Cannula 07/07 1600 Nasal 3.0L Cannula 07/07 1530 98.0 79 20 102/58 92 Nasal 3.0L Cannula 07/07 0852 82 112/64 07/07 0852 82 112/64 Intake & Output 07/08 1600 07/08 0800 07/08 0000 Intake Total 100 365 Output Total 400 400 Balance -300 -35 Intake, IV 125 Intake, Oral 100 240 Output, Urine 400 400 Impression/Plan Impression/Plan Impression/Plan: Physical Exam: Well-developed, well-nourished elderly male in no acute distress. Vital signs: See above. HEENT: Normocephalic, atraumatic, EOMI, moist mucous membranes. Neck: No JVD, no bruits. Lungs: Bibasilar crackles. Heart: S1, S2 with no murmur, gallop, or rub appreciated. PMI fifth ICS at [facility]. Abdomen: Soft, nontender, positive bowel sounds. Extremities: Trace bilateral lower extremity edema. SIGNIFICANT DATA CT scan of the chest done yesterday showed significant congestive heart failure and loculated bilateral effusion in the fissure in the right minor fissure 4.1 x 4.6 and the loculated effusion in the left side. 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 Patient does also have in the posteriorly in the left lung apex of broadbase plurals base soft tissue opacity with calcified disease suggestive of previous granulomatous with previous lung nodules He also has had mild centrilobular paraseptal emphysema Cultures from the pericardial fluid did not grow any tuberculosis IMPRESSION This is a gentleman with history of rheumatoid arthritis on methotrexate hence immunosuppressed, significant diastolic heart disease, diabetes on insulin therapy, coronary artery disease, now has the following issues * Resolving Bilateral pulmonary edema as noted in the CAT scan suggestive of pulmonary edema from heart failure due to diastolic heart disease as his echocardiogram is suggestive of significant diastolic dysfunction consistent with restrictive hemodynamics. * He has had previous history of pericardial window and he has thickened pericardium this may be playing a role tamponade physiology is unlikely at this time however he might need to be evaluated for pericardectomy in the future as he might be developing constrictive pericaridal path causing sig diastolic dysfunction * Bilateral pulmonary opacities with noted aspiration in an immunosuppressed patient aspiration pneumonitis which is also playing a role. Pt had a swallow eval with some abnormality and speech path is following * Bilateral loculated pleural effusion in the fissure related to inflammatory process which he has and the pathology is prob the same as his the pathology which caused his pericardial effusion i.e. rheumatoid arthritis. His TB cultures have been negative in the past. There is no clear evidence suggestive of empyema or significant pulmonary malignancy * Significant baseline hypercarbia with a normal pH most likely related to obesity hypoventilation syndrome patient probably does have sleep apnea central and obstructive aswell based on lewis history. His ABG 7.40/58 and 67 on 3 L. THis is suggestive of chronic hypercarbia (thyroid functions normal) * Significant peripheral opacity in the left side which appears to be chronic which does not seem to have increased in size in the recent past and calcified lymphadenopathy suggestive of previous granulomatous disease * Mild emphysema by CT scan Recommendation * Continue antibiotics which him to by mouth to augmentin total abx of 7-10 days * Keep potassium above four, can hold diuretics today as he appears euvolemic * Patient might benefit from a right heart catheterization or MRI of the heart in the future to evaluate for any constrictive pericardial pathology. Patient does seem to have worsening diastolic heart dysfunction which may be related to his pericardium, cardio onboard * Keep his O2 sat 91-92%. Keep his head of bed elevated. Patient needs to have outpatient evaluation for sleep apnea. * Check QuantiFERON gold test * Hold further narcotics Increase activity and can be dcd soon We will follow closely
--- NOTE | 2016-07-08 09:00 | PN- Housestaff ---
GLEN TELLES,[facility] 07/08/16 0859: Subjective Follow-up For: Loculated pleural effusion Acute diastolic congestive heart failure Diabetes mellitus type 2 Elevated globulin gap Tele-Events Since Last Visit: Sinus rhythm Heart rate 69-78 First heart block [place] interval 0.24 No overnight cardiac events Subjective: Patient was seen and examined this morning he didn't have breakfast as he didn't like the food. He offered no complaint Over the right he had blood sugar of 221 and NovoLog sliding scale was started. This morning his blood sugar is 116. Review of Systems Constitutional: Denies: no symptoms. Objective Last 24 Hrs of Vital Signs/I&O Vital Signs Date Time Temp Pulse Resp B/P Pulse O2 O2 Flow FiO2 Ox Delivery Rate 07/08 0759 97.8 87 20 118/66 92 Nasal Cannula 07/08 0000 Nasal 2.0L Cannula 07/08 0000 97.6 73 20 92/58 97 07/07 2049 116/58 07/07 1830 98 Nasal 3.0L Cannula 07/07 1600 Nasal 3.0L Cannula 07/07 1530 98.0 79 20 102/58 92 Nasal 3.0L Cannula Intake & Output 07/08 1600 07/08 0800 07/08 0000 Intake Total 100 365 Output Total 400 400 Balance -300 -35 Intake, IV 125 Intake, Oral 100 240 Output, Urine 400 400 Physical Exam General Appearance: Alert, Oriented X3, Cooperative, No Acute Distress Cardiovascular: Regular Rate, Normal S1, Normal S2, No Murmurs Lungs: bilateral basilar crepetation Abdomen: Normal Bowel Sounds, Soft, No Tenderness Neurological: Normal Gait, Normal Speech, Strength at 5/5 X4 Ext, Normal Tone, Sensation Intact, Cranial Nerves 3-12 NL, Reflexes 2+ Extremities: trace BLE pedel edema Assessment/Plan Assessment: 75 y/o M with PMHx of diastolic CHF, rheumatoid arthritis and prostate cancer s/ p hormonal and radiation therapy who is admitted for acute diastolic CHF. #Acute diastolic CHF: SOB much improved today. * Cardiology following. Appreciate their recs. * Will hold today, Lasix 40 mg to PO BID * Continue metoprolol 12.5 mg PO BID. * Continue to monitor daily weight and I/Os, negative balance * Cardiology outpatient follow up with consideration to do imaging stress test to exclude any significant ischemia #New chest x-ray finding of nodularity/consolidation/atelectasis * Chest x-ray showed atelectasis, consolidation and nodularity 1. Pulmonary hypoinflation. Interval development of airspace consolidation within the right upper lobe. This could reflect atelectasis given low lung volumes versus pneumonia. On lateral view of the chest, there is a 4.3 cm masslike region of consolidation, not definitely seen on recent chest x-rays or a prior chest CT dating back to 08/11/2015. This could reflect infection or round atelectasis given findings on prior chest CT. Contrast-enhanced chest CT would be helpful in further evaluation. 2. Cardiomegaly. Small bilateral pleural effusions. Prominent bilateral interstitial lung markings, suspicious for interstitial pulmonary edema. This constellation of findings is suggestive of congestive heart failure and volume overload. 3. Nodular opacity within the right midlung measuring 1.2 cm, new relative to the prior exam.Potential discharge home tomorrow. * pulmonary evaluation was obtained, appricate recom. QuantiFERON goal test and sputum culture * patient was started on Unasyn IV every 6 the setting of aspiration (no fever, no WBC), abnormal barium swallowing evaluation, increase oxygen requirment to 4 l and desat to 80% yeasterday * Will switch to Augmentin twice a day to finish course of 10 days #3 to finish the course on 07/15/2069 * barium swallowing evaluation test showed thin liquid penetration without cough reflex. The diet was changed to chopped and thick nectar liquid * Will hold for chest x-ray for now #T2DM * Endocrinology following. Appreciate their recs. * Continue Prandin 0.5 mg PO TIDAC. * Will discharge patient on Prandin 0.5 mg PO TIDAC, hold med if patient skips a meal. * Follow up with Dr. Claros as outpatient. * Patient is very sensitive to insulin regarding getting hypoglycemic, I discussed the BS reading of [address] claros, her recommendation is not to give insulin until it is more than 300 and after reevaluation. #Elevated globulin gap: Globulin gap of 5.9. Concerning for multiple myeloma. * Protein electrophoresis showed 17% albumin, alpha 1 globulin 2%, alpha 2 globulin 7%, beta globulin 27% , gammaglobulins 47% * No monprotein was detected Diet: Consistent Carbohydrate 2 chopped and thick nectar Electrolytes: Keep K above 4 and Mg > 2 DVT PPx: Lovenox and ALPs CODE: FULL Problem List: 1. Aspiration pneumonia 2. Diabetes 3. Congestive heart failure Pain Ratin Pain Location: none Pain Goal: Remain pain free Pain Plan: Roxicodone 5 mg PO Q6H PRN for severe pain (scale 7-10) Tylenol 650 mg PO Q6H PRN for mild pain (scale 1-3) Tomorrow's Labs & Rationales: CBC to monitor H&H and WBC BMP for electrolyte and kidney function Consulting Request: Consulting Specialty: Endocrinology Consulting Physician: Jt Claros MD Reason for Consult: management of DM type 2 VICTORINO OBRIEN MD 07/08/16 1727: Attending MD Review Statement Attending Statement Attending MD Statement: examined this patient, discuss w/resident/PA/SUSTAINABLE PRODUCTS MARKETING MANAGER, agreed w/resident/PA/SUSTAINABLE PRODUCTS MARKETING MANAGER, discussed with family, reviewed EMR data (avail), discussed with nursing, discussed with case mgmt, amended to note Attending Assessment/Plan: The patient was seen and discussed with house staff. Agree with plan of care as outlined.
--- NOTE | 2016-07-08 13:46 | PN- Diabetes ---
Assessment/Plan Assessment: 75 y/o male with complicated past medical history presented with worsening SOB. Clinically he has been improving. Levemir was discontinued on 07/02/2016. He was put on Prandin 0.5 mg before meals. Novolog scale was discontinued as well. His FSGs have been stable ( majority readings were < 160) Plan: continue the current Prandin 0.5 mg before meals x 3 times a day; hold off on Prandin if he skips meal; monitor FSGs. No insulin. f/u in office after discharge. please call if further assisstance needed. Subjective Subjective: He feels okay. Objective Last 24 Hrs of Vital Signs/I&O Vital Signs Date Time Temp Pulse Resp B/P Pulse O2 O2 Flow FiO2 Ox Delivery Rate 07/08 1239 95 Room Air 07/08 1128 98/50 07/08 0953 85 100/50 07/08 0901 94 Nasal 1.0L Cannula 07/08 0800 94 Nasal 3.0L Cannula 07/08 0759 97.8 87 20 118/66 92 Nasal Cannula 07/08 0000 Nasal 2.0L Cannula 07/08 0000 97.6 73 20 92/58 97 07/07 2049 116/58 07/07 1830 98 Nasal 3.0L Cannula 07/07 1600 Nasal 3.0L Cannula 07/07 1530 98.0 79 20 102/58 92 Nasal 3.0L Cannula Intake & Output 07/08 1600 07/08 0800 07/08 0000 Intake Total 100 365 Output Total 400 400 Balance -300 -35 Intake, IV 125 Intake, Oral 100 240 Output, Urine 400 400 Patient 178 lb Weight Findings Pertinent Lab/Thomas Results: Laboratory Tests 07/08 0655 Chemistry Sodium (137 - 145 mmol/L) 132 L Potassium (3.5 - 5.1 mmol/L) 3.6 Chloride (98 - 107 mmol/L) 86 L Carbon Dioxide (22 - 30 mmol/L) 34 H Anion Gap (5 - 16) 13 BUN (9 - 20 mg/dL) 29 H Creatinine (0.7 - 1.2 mg/dL) 1.3 H Estimated GFR (>60 ml/min) 54 L BUN/Creatinine Ratio (7 - 25 %) 22.3 Hematology CBC w Diff NO MAN DIFF REQ WBC (4.8 - 10.8 /CUMM) 3.9 L RBC (4.70 - 6.10 /CUMM) 3.72 L Hgb (14.0 - 18.0 G/DL) 8.9 L Hct (42 - 52 %) 28.0 L MCV (80.0 - 94.0 FL) 75.4 L MCH (27.0 - 31.0 PG) 24.0 L RDW (11.5 - 14.5 %) 20.9 H Plt Count (130 - 400 /CUMM) 97 L MPV (7.4 - 10.4 FL) 7.1 L Gran % (42.2 - 75.2 %) 50.5 Lymphocytes % (20.5 - 51.1 %) 39.2 Monocytes % (1.7 - 9.3 %) 8.7 Eosinophils % (0 - 5 %) 0.7 Basophils % (0.0 - 2.0 %) 0.9 Absolute Granulocytes (1.4 - 6.5 /CUMM) 1.9 Absolute Lymphocytes (1.2 - 3.4 /CUMM) 1.5 Absolute Monocytes (0.10 - 0.60 /CUMM) 0.3 Absolute Eosinophils (0.0 - 0.7 /CUMM) 0 Absolute Basophils (0.0 - 0.2 /CUMM) 0 PUBS MCHC (33.0 - 37.0 G/DL) 31.9 L
--- NOTE | 2016-07-08 14:30 | PN- Cardiology ---
Subjective Subjective: No complaints, although a language barrier is present. Recurrent aspiration with decreased O2 saturations has thus far precluded discontinuation of oxygen. Objective Vital Signs and I&Os Vital Signs Date Time Temp Pulse Resp B/P Pulse O2 O2 Flow FiO2 Ox Delivery Rate 07/08 1239 95 Room Air 07/08 1128 98/50 07/08 0953 85 100/50 07/08 0901 94 Nasal 1.0L Cannula 07/08 0800 94 Nasal 3.0L Cannula 07/08 0759 97.8 87 20 118/66 92 Nasal Cannula 07/08 0000 Nasal 2.0L Cannula 07/08 0000 97.6 73 20 92/58 97 07/07 2049 116/58 07/07 1830 98 Nasal 3.0L Cannula 07/07 1600 Nasal 3.0L Cannula 07/07 1530 98.0 79 20 102/58 92 Nasal 3.0L Cannula Intake & Output 07/08 1600 07/08 0800 07/08 0000 07/07 1600 07/07 0800 07/07 0000 Intake Total 100 365 640 320 250 Output Total 400 400 700 425 700 Balance -300 -35 -60 -105 -450 Intake, IV 125 200 10 Intake, Oral 100 240 640 120 240 Output, Urine 400 400 700 425 700 Patient 178 lb 172 lb Weight Physical Exam: Well-developed, well-nourished elderly male in no acute distress. Vital signs: See above. HEENT: Normocephalic, atraumatic, EOMI, moist mucous membranes. Neck: No JVD, no bruits. Lungs: Few bibasilar crackles. Heart: S1, S2 with no murmur, gallop, or rub appreciated. PMI fifth ICS at [facility]. Abdomen: Soft, nontender, positive bowel sounds. Extremities: No lower extremity edema. Assessment/Plan Assessment/Plan Elderly male recently diagnosed with diabetes mellitus and placed on insulin therapy who presents with progressive shortness of breath, orthopnea, cough, and lower extremity edema with clinical and radiographic evidence of heart failure. The etiology for his heart failure is presently unclear, but although he had normal wall thickness observed on his most recent echocardiogram, he also had evidence of stage III diastolic dysfunction. He also has a recently diagnosed risk equivalent and has multiple risk factors for coronary artery disease which may be responsible for his presentation secondary to ischemia. Plan will be to follow-up on an outpatient basis and perform an imaging stress test to help exclude significant ischemia. If there is evidence of ischemia on stress testing we will have him undergo combined right and left heart cardiac catheterization. If there is no evidence of ischemia we will consider a cardiac MRI to better assess the pericardium and possibly proceed with right heart catheterization. The other major issue is suspected recurrent aspiration with decreased O2 saturations precluding our being able to discontinue oxygen. Continue to follow-up on pulmonary recommendations. Continue telemetry? No
[2016-07-08 16:16] VITALS: BP 110/56
[2016-07-08 23:00] VITALS: BP 118/52
[2016-07-09 07:58] LABS: ABSOLUTE BASOPHIL COUNT 0 /CUMM (0.0-0.2); ABSOLUTE EOSINOPHIL COUNT 0 /CUMM (0.0-0.7); ABSOLUTE GRANULOCYTE CT 1.5 /CUMM (1.4-6.5); ABSOLUTE LYMPH COUNT 1.1 /CUMM (1.2-3.4); ABSOLUTE MONOCYTE COUNT 0.2 /CUMM (0.10-0.60); BASOPHIL % 0.8 % (0.0-2.0); EOSINOPHIL % 0.6 % (0-5); GRANULOCYTE % 51.9 % (42.2-75.2); HEMATOCRIT 27.4 % (42-52); MEAN CORPUSCULAR HGB 24.5 PG (27.0-31.0); MEAN CORPUSCULAR HGB CONC 32.8 G/DL (33.0-37.0); MEAN CORPUSCULAR VOLUME 74.8 FL (80.0-94.0); MEAN PLATELET VOLUME 7.1 FL (7.4-10.4); PLATELET COUNT 87 /CUMM (130-400); RED BLOOD CELL CT 3.66 /CUMM (4.70-6.10); WHITE BLOOD CELL COUNT 2.9 /CUMM (4.8-10.8)
[2016-07-09 08:00] VITALS: BP 100/56
--- NOTE | 2016-07-09 12:58 | PN- Pulmonary ---
Subjective HPI/Critical Care Issues: Patient seen and examined this morning. He is eating lunch and appears to be comfortable. He has been afebrile he is hemodynamically stable. Saturated 95% on 1 L nasal cannula. He is without any pain and in no obvious shortness of breath. He has no abdominal issues at this time. There is a language barrier however Objective Current Medications: Current Medications Sig/Lenny Start time Last Medication Dose Route Stop Time Status Admin Acetaminophen 650 MG Q6P PRN 07/01 0230 AC PO Al Hydroxide/Mg 30 ML Q4-6 PRN PRN 07/05 2130 AC 07/05 Hydroxide PO 2133 Albuterol Sulfate 3 ML BID 07/06 1434 AC 07/09 INH 1036 Amoxicillin/ 875 MG Q12 07/08 2200 AC 07/09 Clavulanate Potassium PO 0936 Benzonatate 100 MG Q8 07/03 0605 AC 07/09 PO 0515 Docusate Sodium 100 MG DAILY NEEDED PRN 07/01 2330 AC 07/02 PO 0109 Enoxaparin Sodium 40 MG DAILY 07/01 1000 AC 07/09 SC 0936 Levothyroxine Sodium 0.2 MG DAILY AC 07/01 0700 AC 07/09 PO 0516 Lisinopril 20 MG DAILY 07/01 1000 AC 07/09 PO 0936 Methotrexate 5 MG QTHURS 07/07 1000 AC 07/07 PO 0848 Metoprolol Tartrate 12.5 MG BID 07/02 1437 AC 07/09 PO 0936 Omeprazole 20 MG DAILY AC 07/07 1423 AC 07/09 PO 0516 Repaglinide 0.5 MG 0800,1200,1700 07/02 1215 AC 07/09 PO 1221 Sodium Chloride 2 SPRAY Q4P PRN 07/06 0800 AC NELSON Vital Signs & I&O Last 24 Hrs of Vitals and I&O: Vital Signs Date Time Temp Pulse Resp B/P Pulse O2 O2 Flow FiO2 Ox Delivery Rate 07/09 1038 95 Nasal 1.0L Cannula 07/09 935 81 120/64 07/09 0836 81 120/64 07/09 08 Nasal 1.0L Cannula 07/09 08 97.4 80 18 100/56 92 Room Air 07/09 0000 95 Nasal 1.0L Cannula 07/08 2300 98.1 91 20 118/52 95 Nasal 1.0L Cannula 07/08 2152 91 118/52 07/08 1917 97 Nasal 1.0L Cannula 07/08 1616 98.1 86 20 110/56 95 Nasal 1.0L Cannula Intake & Output 07/09 1600 07/09 0800 07/09 0000 Intake Total 20 200 Output Total 200 200 Balance -180 0 Intake, Oral 20 200 Output, Urine 200 200 Patient 174 lb Weight Exam Other Physical Findings: General - Alert, awake and oriented HEENT - normocephalic, atraumatic Cardiovascular - S1, S2 Lungs - bibasilar crackles Abdomen - soft, bowel sounds positive, no tenderness Extremities - trace edema Results Last 24 Hrs of Lab Results: Laboratory Tests 07/09/16 0620: Anion Gap 12, Estimated GFR 49 L, BUN/Creatinine Ratio 20.7, CBC w Diff NO MAN DIFF REQ, RBC 3.66 L, MCV 74.8 L, MCH 24.5 L, RDW 21.0 H, MPV 7.1 L, Gran % 51.9, Lymphocytes % 39.9, Monocytes % 6.8, Eosinophils % 0.6, Basophils % 0.8, Absolute Granulocytes 1.5, Absolute Lymphocytes 1.1 L, Absolute Monocytes 0.2, Absolute Eosinophils 0, Absolute Basophils 0, PUBS MCHC 32.8 L Impression/Plan Impression/Plan Impression/Plan: Impression 75-year-old man * Pulmonary edema, diastolic congestive heart disease, 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 Grier - Follow up cardiology recommendations as far as further imaging to evaluate constrictive pericarditis and a possible right heart catheter in the future - Continue antibiotics - SPO2 go above 92% DVT prophylaxis at all times
--- NOTE | 2016-07-09 13:38 | PN- Att Addend ---
Attending Addendum Attending Brief Note Patient seen and examined. Plan of care discussed with the medical team and the patient. Available lab work and radiology test reports were reviewed. Patient is lying in bed comfortably. His is at the bedside. Patient does not report any new symptoms. He denies any chest pain or difficulty breathing. Vital Signs Date Time Temp Pulse Resp B/P Pulse O2 O2 Flow FiO2 Ox Delivery Rate 07/09 1038 95 Nasal 1.0L Cannula 07/09 0836 81 120/64 07/09 0836 81 120/64 07/09 799 Nasal 1.0L Cannula 07/09 799 97.4 80 18 100/56 92 Room Air 07/09 0000 95 Nasal 1.0L Cannula 07/08 2300 98.1 91 20 118/52 95 Nasal 1.0L Cannula 07/08 2152 91 118/52 07/08 1917 97 Nasal 1.0L Cannula 07/08 1616 98.1 86 20 110/56 95 Nasal 1.0L Cannula Intake & Output 07/09 1600 07/09 0800 07/09 0000 Intake Total 20 200 Output Total 200 200 Balance -180 0 Intake, Oral 20 200 Output, Urine 200 200 Patient 174 lb Weight Exam: General: Patient awake alert oriented without any distress CVS: S1 plus S2 without any murmur or gallops Chest: Few scattered crepitation without any wheeze. There is no respiratory distress. Abdomen: Soft nontender, bowel sound present, no guarding or rebound DOOR MANAGER: Awake alert oriented without any focal neuro deficit and follows command appropriately Extremities: No edema; no clubbing or cyanosis noted Laboratory Tests 07/09 619 Chemistry Sodium (137 - 145 mmol/L) 134 L Potassium (3.5 - 5.1 mmol/L) 3.6 Chloride (98 - 107 mmol/L) 91 L Carbon Dioxide (22 - 30 mmol/L) 31 H Anion Gap (5 - 16) 12 BUN (9 - 20 mg/dL) 29 H Creatinine (0.7 - 1.2 mg/dL) 1.4 H Estimated GFR (>60 ml/min) 49 L BUN/Creatinine Ratio (7 - 25 %) 20.7 Hematology CBC w Diff NO MAN DIFF REQ WBC (4.8 - 10.8 /CUMM) 2.9 L RBC (4.70 - 6.10 /CUMM) 3.66 L Hgb (14.0 - 18.0 G/DL) 9.0 L Hct (42 - 52 %) 27.4 L MCV (80.0 - 94.0 FL) 74.8 L MCH (27.0 - 31.0 PG) 24.5 L RDW (11.5 - 14.5 %) 21.0 H Plt Count (130 - 400 /CUMM) 87 L MPV (7.4 - 10.4 FL) 7.1 L Gran % (42.2 - 75.2 %) 51.9 Lymphocytes % (20.5 - 51.1 %) 39.9 Monocytes % (1.7 - 9.3 %) 6.8 Eosinophils % (0 - 5 %) 0.6 Basophils % (0.0 - 2.0 %) 0.8 Absolute Granulocytes (1.4 - 6.5 /CUMM) 1.5 Absolute Lymphocytes (1.2 - 3.4 /CUMM) 1.1 L Absolute Monocytes (0.10 - 0.60 /CUMM) 0.2 Absolute Eosinophils (0.0 - 0.7 /CUMM) 0 Absolute Basophils (0.0 - 0.2 /CUMM) 0 PUBS MCHC (33.0 - 37.0 G/DL) 32.8 L Assessment and problem list * CHF * C Mel * History of rheumatoid arthritis * History of CVA * Neutropenia * Chronic anemia * Thrombocytopenia * Mild hyponatremia Plan * Continue to monitor oral intake * Complete total of 5-7 days of antibiotics * Increase ambulation * Possible discharge in next 1-2 days * Taper oxygen if tolerated
[2016-07-09 16:52] VITALS: BP 116/62
--- NOTE | 2016-07-09 20:39 | PN- Housestaff ---
Subjective Follow-up For: Acute diastolic congestive heart failure Type 2 diabetes mellitus Complaints: no complaints Subjective: Patient is seen and examined at the bedside. He was lying in the bed comfortably. He denies for any new complaints. Review of Systems Constitutional: Denies: no symptoms. Objective Last 24 Hrs of Vital Signs/I&O Vital Signs Date Time Temp Pulse Resp B/P Pulse O2 O2 Flow FiO2 Ox Delivery Rate 07/09 1916 96 Nasal 1.0L Cannula 07/09 1652 98.0 80 16 116/62 94 Nasal Cannula 07/09 1600 Nasal 1.0L Cannula 07/09 1038 95 Nasal 1.0L Cannula 07/09 0936 81 120/64 07/09 0936 81 120/64 07/09 0800 Nasal 1.0L Cannula 07/09 08 97.4 80 18 100/56 92 Room Air 07/09 0000 95 Nasal 1.0L Cannula 07/08 2300 98.1 91 20 118/52 95 Nasal 1.0L Cannula 07/08 2152 91 118/52 Intake & Output 07/09 1600 07/09 0800 07/09 0000 Intake Total 300 20 200 Output Total 450 200 200 Balance -150 -180 0 Intake, Oral 300 20 200 Output, Urine 450 200 200 Patient 78.925 kg Weight Physical Exam General Appearance: Alert, Oriented X3, Cooperative, No Acute Distress Cardiovascular: Regular Rate, Normal S1, Normal S2 Lungs: crackles Abdomen: Soft, No Tenderness Neurological: Normal Speech Extremities: No Clubbing, No Cyanosis, No Edema Assessment/Plan Assessment: 75 y/o M with PMHx of diastolic CHF, rheumatoid arthritis and prostate cancer s/ p hormonal and radiation therapy who is admitted for acute diastolic CHF. Problem list Acute diastolic CHF Type 2 diabetes mellitus Rheumatoid arthritis History of CVA Anemia, probably iron deficiency anemia Pancytopenia(neutropenia/thrombocytopenia/anemia) XI Plan - We will follow cardiology recommendation According to Dr. Tomlinson, we need to evaluate the patient for construct a pericarditis and possible she may need right heart catheterization in the future Daily weight, strict intake output charting Continue metoprolol 12.5 mg PO BID. We will regularly monitor blood sugar level, We will continue Prandin 0.5 mg PO TIDAC Will not give insulin unless until blood sugar level is more than 300, as patient is very prone to hypoglycemia Diet: Consistent Carbohydrate 2 chopped and thick nectar DVT PPx: Lovenox and ALPs CODE: FULL Problem List: 1. Acute diastolic CHF (congestive heart failure) 2. Pericardial effusion 3. Diabetes 4. Elevated serum globulin level Pain Ratin Pain Location: None Pain Goal: Remain pain free Pain Plan: [id number] Tomorrow's Labs & Rationales: None Consulting Request: Consulting Specialty: Endocrinology Consulting Physician: Jt Hutchison MD Reason for Consult: management of DM type 2
[2016-07-10 00:42] VITALS: BP 108/74
[2016-07-10 07:57] VITALS: BP 114/60
--- NOTE | 2016-07-10 11:02 | PN- Pulmonary ---
Subjective HPI/Critical Care Issues: pt seen and examined ros limited due to language barrier 96% on 1LNC on abx comfortable no pain no dyspnea Objective Current Medications: Current Medications Sig/Lenny Start time Last Medication Dose Route Stop Time Status Admin Acetaminophen 650 MG Q6P PRN 07/01 0230 AC PO Al Hydroxide/Mg 30 ML Q4-6 PRN PRN 07/05 2130 AC 07/05 Hydroxide PO 2133 Albuterol Sulfate 3 ML BID 07/06 1434 AC 07/10 INH 1014 Amoxicillin/ 875 MG Q12 07/08 2200 AC 07/10 Clavulanate Potassium PO 1001 Benzonatate 100 MG Q8 07/03 0605 AC 07/10 PO 0523 Docusate Sodium 100 MG DAILY NEEDED PRN 07/01 2330 AC 07/02 PO 0109 Enoxaparin Sodium 40 MG DAILY 07/01 1000 AC 07/10 SC 1002 Levothyroxine Sodium 0.2 MG DAILY AC 07/01 0700 AC 07/10 PO 0523 Lisinopril 20 MG DAILY 07/01 1000 AC 07/10 PO 1002 Methotrexate 5 MG QTHURS 07/07 1000 AC 07/07 PO 0848 Metoprolol Tartrate 12.5 MG BID 07/02 1437 AC 07/10 PO 1002 Omeprazole 20 MG DAILY AC 07/07 1423 AC 07/10 PO 0523 Repaglinide 0.5 MG 0800,1200,1700 07/02 1215 AC 07/10 PO 0746 Sodium Chloride 1,000 ML Q13H 07/10 1100 AC IV Sodium Chloride 2 SPRAY Q4P PRN 07/06 0800 AC NELSON Vital Signs & I&O Last 24 Hrs of Vitals and I&O: Vital Signs Date Time Temp Pulse Resp B/P Pulse O2 O2 Flow FiO2 Ox Delivery Rate 07/10 1016 96 Nasal 1.0L Cannula 07/10 1002 79 104/60 07/10 1002 79 104/60 07/10 0757 97.7 86 18 114/60 96 Nasal 1.0L Cannula 07/10 0042 97.5 70 18 108/74 96 Nasal 1.0L Cannula 07/10 0000 94 Nasal 1.0L Cannula 07/09 2157 82 112/52 07/09 1916 96 Nasal 1.0L Cannula 07/09 1652 98.0 80 16 116/62 94 Nasal Cannula 07/09 1600 Nasal 1.0L Cannula Intake & Output 07/10 1600 07/10 0800 07/10 0000 Intake Total 120 240 Output Total 400 Balance -280 240 Intake, Oral 120 240 Output, Urine 400 Exam Other Physical Findings: General - Alert, awake and oriented HEENT - normocephalic, atraumatic Cardiovascular - S1, S2 Lungs - bibasilar crackles Abdomen - soft, bowel sounds positive, no tenderness Extremities - trace edema Impression/Plan Impression/Plan Impression/Plan: Impression 75-year-old man * Pulmonary edema, diastolic congestive heart disease, 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
--- NOTE | 2016-07-10 11:06 | PN- Housestaff ---
Subjective Follow-up For: Loculated pleural effusion Acute diastolic congestive heart failure Diabetes mellitus type 2 Elevated globulin gap Subjective: patient seen and examined this morning, reported one episode of liquid stool, no blood. denied abdominal pain, neusea, vomiting. he is on 1 l oxygen willtry to get oxymetry off oxygen in prepration for DC. on rest with O2 is 94%, without 91 %, on ambulation 88% Cr is increasing 1.4 will give 1 l of NS. for possibile Dc tomorrow. Stool culture and Cidf were ordered Review of Systems Constitutional: Denies: see HPI. Objective Last 24 Hrs of Vital Signs/I&O Vital Signs Date Time Temp Pulse Resp B/P Pulse O2 O2 Flow FiO2 Ox Delivery Rate 07/10 1539 98.5 79 18 118/60 95 07/10 1016 96 Nasal 1.0L Cannula 07/10 1002 79 104/60 07/10 1002 79 104/60 07/10 0800 94 Nasal 1.0L Cannula 07/10 0757 97.7 86 18 114/60 96 Nasal 1.0L Cannula 07/10 0042 97.5 70 18 108/74 96 Nasal 1.0L Cannula 07/10 0000 94 Nasal 1.0L Cannula 07/09 2157 82 112/52 07/09 1916 96 Nasal 1.0L Cannula 07/09 1652 98.0 80 16 116/62 94 Nasal Cannula Intake & Output 07/10 1600 07/10 0800 07/10 0000 Intake Total 300 120 240 Output Total 400 Balance 300 -280 240 Intake, Oral 300 120 240 Output, Urine 400 Physical Exam General Appearance: Alert, Oriented X3, Cooperative, No Acute Distress Assessment/Plan Assessment: 75 y/o M with PMHx of diastolic CHF, rheumatoid arthritis and prostate cancer s/ p hormonal and radiation therapy who is admitted for acute diastolic CHF. Problem list Acute diastolic CHF Type 2 diabetes mellitus Rheumatoid arthritis History of CVA Anemia, probably iron deficiency anemia Pancytopenia(neutropenia/thrombocytopenia/anemia) XI Plan - We will follow cardiology recommendation According to Dr. Tomlinson, we need to evaluate the patient for construct a pericarditis and possible she may need right heart catheterization in the future Daily weight, strict intake output charting Continue metoprolol 12.5 mg PO BID. We will regularly monitor blood sugar level, We will continue Prandin 0.5 mg PO TIDAC Will not give insulin unless until blood sugar level is more than 300, as patient is very prone to hypoglycemia Diet: Consistent Carbohydrate 2 chopped and thick nectar DVT PPx: Lovenox and ALPs CODE: FULL Problem List: 1. Aspiration pneumonia 2. Diabetes 3. Acute diastolic CHF (congestive heart failure) Pain Ratin Pain Location: n/a Pain Goal: Remain pain free Pain Plan: see medication Tomorrow's Labs & Rationales: cbc, cmp Consulting Request: Consulting Specialty: Endocrinology Consulting Physician: Jt Hutchison MD Reason for Consult: management of DM type 2
--- NOTE | 2016-07-10 12:36 | PN- Att Addend ---
Attending Addendum Attending Brief Note Patient seen and examined. Plan of care discussed with the medical team and the patient. Available lab work and radiology test reports were reviewed. Patient is lying in bed comfortably. Patient does not report any new symptoms. He denies any chest pain or difficulty breathing. Vital Signs Date Time Temp Pulse Resp B/P Pulse O2 O2 Flow FiO2 Ox Delivery Rate 07/10 1016 96 Nasal 1.0L Cannula 07/10 1002 79 104/60 07/10 1002 79 104/60 07/10 0800 94 Nasal 1.0L Cannula 07/10 0757 97.7 86 18 114/60 96 Nasal 1.0L Cannula 07/10 0042 97.5 70 18 108/74 96 Nasal 1.0L Cannula 07/10 0000 94 Nasal 1.0L Cannula 07/09 2157 82 112/52 07/09 1916 96 Nasal 1.0L Cannula 07/09 1652 98.0 80 16 116/62 94 Nasal Cannula 07/09 1600 Nasal 1.0L Cannula Intake & Output 07/10 1600 07/10 0800 07/10 0000 Intake Total 120 240 Output Total 400 Balance -280 240 Intake, Oral 120 240 Output, Urine 400 Exam: General: Patient awake alert oriented without any distress CVS: S1 plus S2 without any murmur or gallops Chest: Basal bilateral crepitation without any wheeze. There is no respiratory distress. 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 If creatinine stable or has decreased patient can be discharged home. If creatinine has increased and patient will need at least 500 mL of IV fluid bolus slowly. Also creatinine is worsening we may need to hold lisinopril. * Upon discharge patient can be discharged on his usual Lasix dose to start from tomorrow * Taper oxygen if tolerated
[2016-07-10 15:39] VITALS: BP 118/60
[2016-07-10 22:42] VITALS: BP 110/60
[2016-07-11 08:02] LABS: ABSOLUTE BASOPHIL COUNT 0 /CUMM (0.0-0.2); ABSOLUTE EOSINOPHIL COUNT 0 /CUMM (0.0-0.7); ABSOLUTE GRANULOCYTE CT 1.6 /CUMM (1.4-6.5); ABSOLUTE MONOCYTE COUNT 0.3 /CUMM (0.10-0.60); BASOPHIL % 0.8 % (0.0-2.0); EOSINOPHIL % 0.5 % (0-5); GRANULOCYTE % 55.5 % (42.2-75.2); MEAN CORPUSCULAR HGB 24.4 PG (27.0-31.0); MEAN CORPUSCULAR HGB CONC 32.6 G/DL (33.0-37.0); MEAN CORPUSCULAR VOLUME 74.9 FL (80.0-94.0); MEAN PLATELET VOLUME 7.3 FL (7.4-10.4); PLATELET COUNT 87 /CUMM (130-400); RBC DISTRIBUTION WIDTH 20.9 % (11.5-14.5); WHITE BLOOD CELL COUNT 2.8 /CUMM (4.8-10.8)
[2016-07-11 08:37] VITALS: BP 130/70
--- NOTE | 2016-07-11 09:18 | PN- Housestaff ---
[facility] 07/11/1618: Subjective Follow-up For: Loculated pleural effusion Acute diastolic congestive heart failure Diabetes mellitus type 2 Tele-Events Since Last Visit: Normal sinus rhythm with first-degree heart block Heart rate 69-76 No overnight events Subjective: Patient was seen and examined this morning, no overnight events reported by the patient or the nurses. No acute distress, vital signs are stable. Review of Systems Constitutional: Denies: no symptoms. Objective Last 24 Hrs of Vital Signs/I&O Vital Signs Date Time Temp Pulse Resp B/P Pulse O2 O2 Flow FiO2 Ox Delivery Rate 07/11 0854 97.4 79 20 130/70 07/11 0953 97.4 79 20 130/70 07/11 899 94 Nasal 1.0L Cannula 07/11 0737 97.4 79 20 130/70 94 Nasal 1.0L Cannula 07/11 799 95 Nasal 1.0L Cannula 07/11 0000 Nasal 1.0L Cannula 07/10 2242 97.9 81 18 110/60 95 Nasal 1.0L Cannula 07/10 2121 97.9 81 18 110/60 07/10 1820 94 Nasal 1.0L Cannula Intake & Output 07/11 1600 07/11 0800 07/11 0000 Intake Total 580 240 240 Output Total 450 500 650 Balance 130 -260 -410 Intake, Oral 580 240 240 Output, Urine 450 500 650 Patient 78.925 kg Weight Physical Exam General Appearance: Alert, Oriented X3, Cooperative, No Acute Distress Cardiovascular: Regular Rate, Normal S1, Normal S2, No Murmurs Lungs: bilateral basal crepitation Abdomen: Normal Bowel Sounds, Soft, No Tenderness Neurological: Normal Speech, Strength at 5/5 X4 Ext, Normal Tone, Sensation Intact, Cranial Nerves 3-12 NL, Reflexes 2+ Extremities: No Clubbing, No Cyanosis, bilateral trace pedel edema Assessment/Plan Assessment: 75 y/o M with PMHx of diastolic CHF, rheumatoid arthritis and prostate cancer s/ p hormonal and radiation therapy who is admitted for acute diastolic CHF. Patient is for discharge today Problem list #Acute diastolic CHF: SOB much improved today. * Cardiology following. Appreciate their recs. * Lasix 40 mg to PO BID continue after discharge * Continue metoprolol 12.5 mg PO BID. continue after discharge * Continue to monitor daily weight and I/Os, negative balance * Cardiology outpatient follow up with consideration to do imaging stress test to exclude any significant ischemia #New chest x-ray finding of nodularity/consolidation/atelectasis * Chest x-ray showed atelectasis, consolidation and nodularity 1. Pulmonary hypoinflation. Interval development of airspace consolidation within the right upper lobe. This could reflect atelectasis given low lung volumes versus pneumonia. On lateral view of the chest, there is a 4.3 cm masslike region of consolidation, not definitely seen on recent chest x-rays or a prior chest CT dating back to 08/11/2015. This could reflect infection or round atelectasis given findings on prior chest CT. Contrast-enhanced chest CT would be helpful in further evaluation. 2. Cardiomegaly. Small bilateral pleural effusions. Prominent bilateral interstitial lung markings, suspicious for interstitial pulmonary edema. This constellation of findings is suggestive of congestive heart failure and volume overload. 3. Nodular opacity within the right midlung measuring 1.2 cm, new relative to the prior exam.Potential discharge home tomorrow. * pulmonary evaluation was obtained, appricate recom. QuantiFERON goal test and sputum culture * patient was started on Unasyn IV every 6 the setting of aspiration (no fever, no WBC), abnormal barium swallowing evaluation, increase oxygen requirment to 4 l and desat to 80% yeasterday * Augmentin twice a day to finish course of 7 days #6 * barium swallowing evaluation test showed thin liquid penetration without cough reflex. The diet was changed to chopped and thick nectar liquid * We repeated a swallowing evaluation, the speech therapy recommendation is to have thin liquids between meals with clean mouth #T2DM * Endocrinology following. Appreciate their recs. * Continue Prandin 0.5 mg PO TIDAC. Continue after discharge * Follow up with Dr. Claros as outpatient. * Patient is very sensitive to insulin regarding getting hypoglycemic, I discussed the BS reading of [address] claros, her recommendation is not to give insulin until it is more than 300 and after reevaluation. #Elevated globulin gap: Globulin gap of 5.9. Concerning for multiple myeloma. * Protein electrophoresis showed 17% albumin, alpha 1 globulin 2%, alpha 2 globulin 7%, beta globulin 27% , gammaglobulins 47% * No monprotein was detected Diet: Consistent Carbohydrate 2 chopped and thick nectar Electrolytes: Keep K above 4 and Mg > 2 DVT PPx: Lovenox and ALPs CODE: FULL Problem List: 1. Aspiration pneumonia 2. Diabetes 3. Congestive heart failure 4. T2DM (type 2 diabetes mellitus) Pain Ratin Pain Location: n/a Pain Goal: Remain pain free Pain Plan: see medication Tomorrow's Labs & Rationales: n/a Consulting Request: Consulting Specialty: Endocrinology Consulting Physician: Jt Claros MD Reason for Consult: management of DM type 2 VICTORINO OBRIEN MD 07/11/16 2207: Attending MD Review Statement Attending Statement Attending MD Statement: examined this patient, discuss w/resident/PA/STOGIE PACKER, agreed w/resident/PA/STOGIE PACKER, discussed with family, reviewed EMR data (avail), discussed with nursing, discussed with case mgmt, amended to note Attending Assessment/Plan: The patient was seen and agree with the plan of care as outlined above. Home oxygen arranged. Appreciate speech therapy follow-up.
[2016-07-11 09:54] VITALS: BP 130/70
--- NOTE | 2016-07-11 10:33 | PN- Pulmonary ---
Subjective HPI/Critical Care Issues: Patient is lying in bed comfortably. Patient does not report any new symptoms. He denies any chest pain or difficulty breathing. Objective Current Medications: Current Medications Sig/Lenny Start time Last Medication Dose Route Stop Time Status Admin Acetaminophen 650 MG Q6P PRN 07/01 0230 AC PO Al Hydroxide/Mg 30 ML Q4-6 PRN PRN 07/05 2130 AC 07/05 Hydroxide PO 2133 Albuterol Sulfate 3 ML BID 07/06 1434 AC 07/11 INH 0859 Amoxicillin/ 875 MG Q12 07/08 2200 AC 07/11 Clavulanate Potassium PO 0953 Benzonatate 100 MG Q8 07/03 0605 AC 07/11 PO 0602 Docusate Sodium 100 MG DAILY NEEDED PRN 07/01 2330 AC 07/02 PO 0109 Enoxaparin Sodium 40 MG DAILY 07/01 1000 AC 07/11 SC 0955 Levothyroxine Sodium 0.2 MG DAILY AC 07/01 0700 AC 07/11 PO 0603 Lisinopril 20 MG DAILY 07/01 1000 AC 07/11 PO 0954 Methotrexate 5 MG QTHURS 07/07 1000 AC 07/07 PO 0848 Metoprolol Tartrate 12.5 MG BID 07/02 1437 AC 07/11 PO 0953 Omeprazole 20 MG DAILY AC 07/07 1423 AC 07/11 PO 0603 Repaglinide 0.5 MG 0800,1200,1700 07/02 1215 AC 07/11 PO 0825 Sodium Chloride 500 ML BOLUS ONE 07/10 1130 DC 07/10 IV 07/10 1229 1138 Sodium Chloride 1,000 ML Q13H 07/10 1100 DC 07/10 IV 1118 Sodium Chloride 2 SPRAY Q4P PRN 07/06 0800 AC NELSON Vital Signs & I&O Last 24 Hrs of Vitals and I&O: Vital Signs Date Time Temp Pulse Resp B/P Pulse O2 O2 Flow FiO2 Ox Delivery Rate 07/11 953 97.4 79 20 130/70 07/11 952 97.4 79 20 130/70 07/11 899 94 Nasal 1.0L Cannula 07/11 836 97.4 79 20 130/70 94 Nasal 1.0L Cannula 07/11 799 95 Nasal 1.0L Cannula 07/11 0000 Nasal 1.0L Cannula 01/08 2242 97.9 81 18 110/60 95 Nasal 1.0L Cannula 07/10 2121 97.9 81 18 110/60 07/10 1820 94 Nasal 1.0L Cannula 07/10 1600 Nasal 1.0L Cannula 07/10 1539 98.5 79 18 118/60 95 Intake & Output 07/11 1600 07/11 0800 07/11 0000 Intake Total 240 240 Output Total 500 650 Balance -260 -410 Intake, Oral 240 240 Output, Urine 500 650 Patient 174 lb Weight Laboratory Tests 07/11 714 Chemistry Sodium (137 - 145 mmol/L) 134 L Potassium (3.5 - 5.1 mmol/L) 3.7 Chloride (98 - 107 mmol/L) 93 L Carbon Dioxide (22 - 30 mmol/L) 31 H Anion Gap (5 - 16) 10 BUN (9 - 20 mg/dL) 27 H Creatinine (0.7 - 1.2 mg/dL) 1.2 Estimated GFR (>60 ml/min) 59 L BUN/Creatinine Ratio (7 - 25 %) 22.5 Hematology CBC w Diff NO MAN DIFF REQ WBC (4.8 - 10.8 /CUMM) 2.8 L RBC (4.70 - 6.10 /CUMM) 3.60 L Hgb (14.0 - 18.0 G/DL) 8.8 L Hct (42 - 52 %) 27.0 L MCV (80.0 - 94.0 FL) 74.9 L MCH (27.0 - 31.0 PG) 24.4 L RDW (11.5 - 14.5 %) 20.9 H Plt Count (130 - 400 /CUMM) 87 L MPV (7.4 - 10.4 FL) 7.3 L Gran % (42.2 - 75.2 %) 55.5 Lymphocytes % (20.5 - 51.1 %) 34.0 Monocytes % (1.7 - 9.3 %) 9.2 Eosinophils % (0 - 5 %) 0.5 Basophils % (0.0 - 2.0 %) 0.8 Absolute Granulocytes (1.4 - 6.5 /CUMM) 1.6 Absolute Lymphocytes (1.2 - 3.4 /CUMM) 1.0 L Absolute Monocytes (0.10 - 0.60 /CUMM) 0.3 Absolute Eosinophils (0.0 - 0.7 /CUMM) 0 Absolute Basophils (0.0 - 0.2 /CUMM) 0 PUBS MCHC (33.0 - 37.0 G/DL) 32.6 L Microbiology Date/Time Procedure - Status Source Growth 07/10 100 Clostridium difficile Toxin A & B - COLB STOOL 07/10 1005 Stool Culture - COLB STOOL Impression/Plan Impression/Plan Impression/Plan: Physical Exam: Well-developed, well-nourished elderly male in no acute distress. Vital signs: See above. HEENT: Normocephalic, atraumatic, EOMI, moist mucous membranes. Neck: No JVD, no bruits. Lungs: Bibasilar crackles. Heart: S1, S2 with no murmur, gallop, or rub appreciated. PMI fifth ICS at [facility]. Abdomen: Soft, nontender, positive bowel sounds. Extremities: Trace bilateral lower extremity edema. SIGNIFICANT DATA CT scan of the chest done yesterday showed significant congestive heart failure and loculated bilateral effusion in the fissure in the right minor fissure 4.1 x 4.6 and the loculated effusion in the left side. 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 Patient does also have in the posteriorly in the left lung apex of broadbase plurals base soft tissue opacity with calcified disease suggestive of previous granulomatous with previous lung nodules He also has had mild centrilobular paraseptal emphysema Cultures from the pericardial fluid did not grow any tuberculosis IMPRESSION This is a gentleman with history of rheumatoid arthritis on methotrexate hence immunosuppressed, significant diastolic heart disease, diabetes on insulin therapy, coronary artery disease, now has the following issues * Resolving Bilateral pulmonary edema significant diastolic dysfunction consistent with restrictive hemodynamics. * He has had previous history of pericardial window and he has thickened pericardium this may be playing a role tamponade physiology is unlikely at this time however he might need to be evaluated for pericardectomy in the future as he might be developing constrictive pericaridal path causing sig diastolic dysfunction * On off aspiration and swallow eval noted * Bilateral loculated pleural effusion in the fissure related to inflammatory process which he has and the pathology is prob the same as his the pathology which caused his pericardial effusion i.e. rheumatoid arthritis. His TB cultures have been negative in the past. There is no clear evidence suggestive of empyema or significant pulmonary malignancy * Significant baseline hypercarbia with a normal pH most likely related to obesity hypoventilation syndrome patient probably does have sleep apnea central and obstructive aswell based on lewis history. His ABG 7.40/58 and 67 on 3 L. THis is suggestive of chronic hypercarbia (thyroid functions normal) * Significant peripheral opacity in the left side which appears to be chronic which does not seem to have increased in size in the recent past and calcified lymphadenopathy suggestive of previous granulomatous disease * Mild emphysema by CT scan Recommendation * Continue antibiotics which him to by mouth to augmentin total abx of 7 * Keep potassium above four * Cardio on board * Keep his O2 sat 91-92%. Keep his head of bed elevated. Patient needs to have outpatient evaluation for sleep apnea. Increase activity and can be dcd soon Pt should follow with me upon dc We will follow closely
--- NOTE | 2016-07-11 11:42 | NUR ---
AMBULATED PT ON ROOM AIR, O2 SAT= 83% AFTER AMBULATION. RECOVERED TO 86% INDEPENDENTLY, THEN TO 94% ON 1L NASAL CANULA
--- NOTE | 2016-07-11 13:49 | NUR ---
Asked by EMERGENCY ROOM CLERK to speak with son as he had some diet questions. Visited with son and questions answered. Son has RD contact information and will call with any questions.
[2016-07-11] MEDS ORDERED: AUGMENTIN 875-1 EACH PO (14:38)
[2016-07-11] MEDS ORDERED: METOPROLOL TART25 M1 PO (14:38)
== END 2016-07-11 16:25 | disposition home health service (06) | DRG 291 ==
LOC: ERH 22:27 → ERHI 07-01 00:22 → 1NO 07-01 00:22
PROVIDERS: Dermatology; Emergency Medicine; Student in an Organized Health Care Education/Training Program; ADMIT Internal Medicine
DX: I11.0 Hypertensive heart disease with heart failure (principal); J69.0 Pneumonitis due to inhalation of food and vomit; J96.01 Acute respiratory failure with hypoxia; D61.818 Other pancytopenia; E87.1 Hypo-osmolality and hyponatremia; E11.9 Type 2 diabetes mellitus without complications; D50.9 Iron deficiency anemia, unspecified; I50.33 Acute on chronic diastolic (congestive) heart failure; Z79.4 Long term (current) use of insulin; M06.9 Rheumatoid arthritis, unspecified; E03.9 Hypothyroidism, unspecified; Z85.46 Personal history of malignant neoplasm of prostate; Z87.891 Personal history of nicotine dependence; E78.5 Hyperlipidemia, unspecified; E87.6 Hypokalemia; K21.9 Gastro-esophageal reflux disease without esophagitis; R00.0 Tachycardia, unspecified; E66.2 Morbid (severe) obesity with alveolar hypoventilation; Z86.73 Personal history of transient ischemic attack (TIA), and cerebral infarction without residual deficits; Z68.29 Body mass index [BMI] 29.0-29.9, adult
CPT/HCPCS: 1NSP; 36415; 74230; 81001; 82436; 84165; 86334; 87040; 87045; 87070; 93005; 93010; 93306; 96374; 97001-GP; 97110-GO; 97116-GO; 97161-GP; 97530-GO; 99291; J1650; J1940; J7040; J8610

== ENCOUNTER 2016-07-21 11:42 | Inpatient (IN) | payer OTHER ==
[~2016-07-21] VITALS: Ht 167.6 cm; Wt 76.3 kg
[~2016-07-21 11:42] MED LIST changes: +AUGMENTIN 875-1 EACH PO; +FOLIC ACID1 M1 PO; +FUROSEMIDE40 M1 PO; +LEVEMIR100 UNIT/1 SC; +METHOTREXATE2.5 M2 PO; +METOPROLOL TART25 M1 PO; +NOVOLOG100 UNIT/1 SC; +PRANDIN PO
--- NOTE | 2016-07-21 11:49 | NUR ---
PT SIB [facility] NURSE FOR WEIGHT GAIN OF 2 LBS FROM YESTERDAY. LOW 02 SATS IN 80'S FOR [facility]. PT ON 2LNC O2 SATS 96% IN TRIAGE. PT DENIES SOB OR CP
--- NOTE | 2016-07-21 12:22 | RADIOLOGY REPORT ---
EXAMINATION: XR CHEST CLINICAL INFORMATION: Shortness of breath. COMPARISON: 07/14/2016 TECHNIQUE: PA and lateral views of the chest were obtained. FINDINGS: The lungs are well expanded. Similar appearance of a small right pleural effusion with increased fluid tracking along the lateral chest wall. Persistent small left pleural effusion. Tubular density again overlies the medial right upper lung. This is unchanged. This likely represents loculated fluid as seen on the prior CT. Persistent interstitial markings. No pneumothorax. The cardiomediastinal silhouette is unchanged. IMPRESSION: Persistent small bilateral pleural effusions with increased fluid tracking along the right lateral chest wall. Persistent diffuse interstitial markings most suggestive of edema. Stable opacity overlying the right mid to upper lung suggestive of loculated fluid as seen on prior CT.
--- NOTE | 2016-07-21 14:07 | ED INFLUENZA/URI COMPLAINT ---
History of Present Illness General Chief Complaint: General Adult Stated Complaint: SENT IN BY HOME NURSE RE: FLUILD ON LUNGS, WEAK Source: family Exam Limitations: language barrier Vital Signs & Intake/Output Vital Signs & Intake/Output Vital Signs Date Time Temp Pulse Resp B/P Pulse O2 O2 Flow FiO2 Ox Delivery Rate 07/26 1146 97.5 67 20 110/50 07/26 0914 63 110/62 07/26 0914 63 110/62 07/26 0800 Nasal 2.0L Cannula 07/26 0800 98.0 73 20 100/60 99 Nasal 2.0L Cannula 07/26 0000 95 Nasal 2.0L Cannula 07/25 2205 81 112/60 07/25 2200 98.2 72 22 112/58 95 Nasal 2.0L Cannula 07/25 1650 97.4 68 18 118/70 95 Nasal 2.0L Cannula ED Intake and Output 07/26 0000 07/25 1200 Intake Total 1100 100 Output Total 975 450 Balance 125 -350 Intake, Oral 1100 100 Number 1 Bowel Movements Output, Urine 975 450 Patient 176 lb 176 lb Weight Allergies Coded Allergies: aspirin (Mild, ULCER 10/13/15) Reconcile Medications Enalapril Maleate 20 MG TAB 1 TAB PO DAILY HTN (Reported) Folic Acid 1 MG TABLET 2 MG PO DAILY SUPPLEMENT (Reported) Furosemide (Lasix) 40 MG TABLET 1 TAB PO BID DIURETIC (Reported) Levothyroxine Sodium 0.2 MG TAB 1 TAB PO DAILY THYROID (Reported) Methotrexate 2.5 MG TABLET 5 MG PO QTHURS RHEUMATOID ARTHRITIS (Reported) Metoprolol Tartrate 25 MG TABLET 12.5 MG PO BID HEART HEALTH Repaglinide (Prandin) 0.5 MG TABLET 1 TAB PO TIDAC DIABETES Hold prandin if you skip a meal Triage Note: PT SIB [facility] NURSE FOR WEIGHT GAIN OF 2 LBS FROM YESTERDAY. LOW 02 SATS IN 80'S FOR [facility]. PT ON 2LNC O2 SATS 96% IN TRIAGE. PT DENIES SOB OR CP Triage Nurses Notes Reviewed? yes Onset: Gradual Duration: day(s): (FEW) Timing: recent history Severity: moderate No Modifying Factors: none Associated Symptoms: WEAKNESS, LETHARGY, DYSPNEA HPI: This is a 75 year old male who presents from home with family for weakness, cough and weight gain for the past few days. Lasix was increased from 40 mg twice a day from once a day by Dr. Barnhart. He said he is on home oxygen 2 L throughout the day but states that he doesn't feel the home unit is working. This is new from last week since discharge. Since increasing the Lasix he states his appetite has been very poor and he has been very weak, too weak to walk today. No fever or chills. No productive cough but cough all night long. No chest pain. Past History Travel History Traveled to [place] past 21 day No Medical History Any Pertinent Medical History? 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 Cardiovascular: CHF (pericardial effusion), hypertension, CARDIOMEGALY Gastrointestinal: upper GI bleed Musculoskeletal: rheumatoid arthritis Endocrine: diabetes, hypothyroidism Blood Disorders: anemia Cancer(s): prostate cancer History of MRSA: No History of VRE: No History of CDIFF: No Pneumonia Vaccine: 04/11/09 Influenza Vaccine: 04/11/16 Surgical History Surgical History: non-contributory Psychosocial History Who do you live with Son Services at Home None What is your primary language Serbocroatian Tobacco Use: Quit >30 days ago ETOH Use: denies use Illicit Drug Use: denies illicit drug use Family History Hx Contributory? No Review of Systems Review of Systems Constitutional: Reports: weakness. Denies: chills, fever. EENTM: Reports: no symptoms. Respiratory: Reports: cough. Denies: short of breath, sputum production. Cardiovascular: Reports: no symptoms. GI: Denies: abdominal pain, diarrhea, vomiting. Genitourinary: Denies: discharge, dysuria. Musculoskeletal: Reports: no symptoms. Skin: Reports: no symptoms. Neurological/Psychological: Reports: no symptoms. Hematologic/Endocrine: Denies: bruising, bleeding, polyuria, polydipsia. Immunologic/Allergic: Denies: splenectomy. All Other Systems: Reviewed and Negative Physical Exam Physical Exam General Appearance: well developed/nourished, awake, anxious, lethargic Head: atraumatic, normal appearance Eyes: Bilateral: normal appearance, PERRL, EOMI. Ears, Nose, Throat: normal ENT inspection, hearing grossly normal Neck: normal inspection, supple, full range of motion Respiratory: decreased breath sounds, crackles, respiratory distress Cardiovascular: regular rate/rhythm Peripheral Pulses: 2+ radial (R), 2+ radial (L) Gastrointestinal: soft, non-tender Extremities: normal inspection, normal capillary refill, pedal edema (2+ BILATERAL) Neurologic/Psych: awake, alert, oriented x 3 Skin: intact, normal color, warm/dry Core Measures Severe Sepsis Present: No Septic Shock Present: No Progress Differential Diagnosis: chf, PNEUMONIA, DEPENDENT EDEMA, ELECTROLYTE DISTURBANCE , ANEMIA, XI Plan of Care: Orders Procedure Date/time Status BLOOD PRODUCT PICKUP 07/26 1147 Active LEUKOCYTE POOR (PACKED CELLS) 07/26 1003 Active MAGNESIUM 07/26 0600 Complete CBC WITHOUT DIFFERENTIAL 07/26 0600 Complete BASIC ELECTROLYTES PLUS BUN&CR 07/26 0600 Complete Therapeutic Activities 07/26 UNK Complete Therapeutic Exercise 07/26 UNK Complete MAGNESIUM 07/25 0628 Complete OXYGEN 07/25 UNK Complete OXYGEN DAILY CHARGE 07/25 UNK Complete PT Evaluate & Treat 07/25 UNK Active Therapeutic Exercise 07/25 UNK Complete PT EVAL MOD COMPLEX 30 MIN 07/25 UNK Complete Gait Training 07/25 UNK Complete Lab Add-on Test 07/25 UNK Active Nursing Misc 07/25 UNK Active Hemoccult 07/25 UNK Active Current Medications Sig/Lenny Start time Last Medication Dose Stop Time Status Admin Acetazolamide 250 MG Q48H 07/28 1000 AC (Diamox) Acetazolamide 250 MG DAILY 07/27 1000 CAN (Diamox) Acetaminophen 650 MG Q6P PRN 07/21 1700 AC (Tylenol) Acetaminophen/ 1 TAB Q6P PRN 07/21 1700 AC Hydrocodone Bitart (Vicodin) Oxycodone HCl 10 MG Q6P PRN 07/21 1700 AC (Roxicodone) Laboratory Tests 07/26/16 0635: Anion Gap 10, Estimated GFR 42 L, BUN/Creatinine Ratio 48.8 H, Magnesium 2.1, CBC w Diff NO MAN DIFF REQ, RBC 3.33 L, MCV 74.7 L, MCH 23.8 L, RDW 21.9 H, MPV 7.5, Gran % 59.1, Lymphocytes % 30.4, Monocytes % 10.0 H, Eosinophils % 0.1 , Basophils % 0.4, Absolute Granulocytes 1.2 L, Absolute Lymphocytes 0.6 L, Absolute Monocytes 0.2, Absolute Eosinophils 0, Absolute Basophils 0, PUBS MCHC 31.9 L 01/23/17 1907: Stool Occult Blood Cancelled PATIENT DESATURATING WITHOUT OXYGEN AFTER IV LASIX ADMINISTRATION. D/W DR PHILLIPS. WILL ADMIT TO HOSPITALIST SERVICE. (ADDIE TELLES,FLOR) Diagnostic Imaging: Viewed by Me: Radiology Read. Discussed w/RAD: Radiology Read. Initial ED EKG: NSR, PVC Rhythm Strip: normal sinus rhythm Comments: PATIENT: NINA NELSON PRESENT AGE: 75 PATIENT ACCOUNT NO: [id number] : 38 LOCATION: ER ORDERING PHYSICIAN: HUMBERTO KHAN DO (TBS) SERVICE DATE: 07/21/161150 EXAM TYPE: RAD - XRY-CHEST XRAY, PA AND LATERAL EXAMINATION: XR CHEST CLINICAL INFORMATION: Shortness of breath. COMPARISON: 07/14/2016 TECHNIQUE: PA and lateral views of the chest were obtained. FINDINGS: The lungs are well expanded. Similar appearance of a small right pleural effusion with increased fluid tracking along the lateral chest wall. Persistent small left pleural effusion. Tubular density again overlies the medial right upper lung. This is unchanged. This likely represents loculated fluid as seen on the prior CT. Persistent interstitial markings. No pneumothorax. The cardiomediastinal silhouette is unchanged. IMPRESSION: Persistent small bilateral pleural effusions with increased fluid tracking along the right lateral chest wall. Persistent diffuse interstitial markings most suggestive of edema. Stable opacity overlying the right mid to upper lung suggestive of loculated fluid as seen on prior CT. DICTATED BY: ELPIDIO POOLE MD DATE/TIME DICTATED:07/21/161215 FIRE CHIEF:UET DATE/TIME TRANSCRIBED:07/21/161215 CONFIDENTIAL, DO NOT COPY WITHOUT APPROPRIATE AUTHORIZATION. <Electronically signed in Other Vendor System> SIGNED BY: ELPIDIO POOLE MD 07/21 1222 Departure Departure Disposition: STILL A PATIENT Condition: Stable Clinical Impression Primary Impression: CHF (congestive heart failure) Secondary Impressions: Hypoxia Referrals: ALICE BARNHART MD (PCP/Family) Departure Forms: Customer Survey General Discharge Information Admission Note Spoke With: VICTORINO OBRIEN MD Documentation of Exam: Documentation of any treatments & extenuating circumstances including Concerns Regarding Discharge (functional status, medication knowledge or non-compliance, living conditions, etc.) that warrant an admission rather than observation: [ TELE MONITOR, DIURESIS, MONITOR I/O, MONITOR ELECTROLYTES, SERIAL EKG/TROPONIN, CARDIOLOGY CONSULTATION, PULMONARY CONSULTATION, ECHOCARDIOGRAM]
--- NOTE | 2016-07-21 14:11 | NUR ---
LABS DRAWN AND SENT BY THIS [facility] ([facility])
[2016-07-21 14:23] LABS: HEMATOCRIT 28.8 % (42-52); MEAN CORPUSCULAR HGB 23.6 PG (27.0-31.0); MEAN CORPUSCULAR HGB CONC 31.3 G/DL (33.0-37.0); MEAN CORPUSCULAR VOLUME 75.6 FL (80.0-94.0); PLATELET COUNT 116 /CUMM (130-400); RED BLOOD CELL CT 3.81 /CUMM (4.70-6.10); WHITE BLOOD CELL COUNT 2.9 /CUMM (4.8-10.8)
[2016-07-21] MEDS ORDERED: LASIX40 M1 PO (16:02)
--- NOTE | 2016-07-21 16:59 | History & Physical ---
[facility] 07/21/16 3256: General Information and HPI MD Statement: I have seen and personally examined NINA LOMAS and documented this H&P. The patient is a 75 year old M who presented with a patient stated chief complaint of [weakness for 2 days]. Source of Information: family, old records Exam Limitations: language barrier History of Present Illness: Mr. Lomas is a 75 y/o M with chief complain of weakness for two days. He has PMHx of grade 3 diastolic dysfunction, prostate cancer s/p hormone and radiation therapy, rheumatoid arthritis, hypothyroidism, R-sided CVA, cardiac tamponade s/ p pericardial window, HLD, HTN and T2DM on prandin 0.5 mg before meals, no insulin per Dr. Hutchison, blateral loculated puleral effusion, emphysema, baseline hypercabnia, abnormal swallowing test. He was recently discharge from [facility] after being treated for CHF exacerbation and aspiration pneumonia. Patient was discharged on home oxygen given his persistent oxygen requirement. Most of the history was obtained from patient's son suze the lunguage barrier. The patient was doing relatively will until two days ago, yesterday he started to complain of weakness and lethergy that progressed to the level that he could not walk and for that was brought to the ED for evaluation. They also reported poor oral intake, nocturinal cough, recent use of 3 pillows instead of 2 while sleeping but denied PND. denied SOB, chest pain, palpitation, dizziness, HX of fall or syncopal attack, abdomenal pain, N/V, dirrhea, sore throat or congested nose. They reported that the PCP changed the lasix dose from 40 mg daily to BID last week based on lab works. The patient has daily visitng nurse. Allergies/Medications Allergies: Coded Allergies: aspirin (Mild, ULCER 10/13/15) Home Med list Enalapril Maleate 20 MG TAB 1 TAB PO DAILY HTN (Reported) Folic Acid 1 MG TABLET 2 MG PO DAILY SUPPLEMENT (Reported) Furosemide (Lasix) 40 MG TABLET 1 TAB PO BID DIURETIC (Reported) Levothyroxine Sodium 0.2 MG TAB 1 TAB PO DAILY THYROID (Reported) Methotrexate 2.5 MG TABLET 5 MG PO QTHURS RHEUMATOID ARTHRITIS (Reported) Metoprolol Tartrate 25 MG TABLET 12.5 MG PO BID HEART HEALTH Repaglinide (Prandin) 0.5 MG TABLET 1 TAB PO TIDAC DIABETES Hold prandin if you skip a meal Past History Travel History Traveled to [place] past 21 day No Medical History Neurological: CVA at age of 45 due to hypertension Cardiovascular: CHF (pericardial effusion), hypertension, CARDIOMEGALY Gastrointestinal: upper GI bleed Musculoskeletal: rheumatoid arthritis Endocrine: diabetes, hypothyroidism Blood Disorders: anemia Cancer(s): prostate cancer History of MRSA: No History of VRE: No History of CDIFF: No Pneumonia Vaccine: 04/11/09 Influenza Vaccine: 04/11/16 Surgical History Surgical History: non-contributory Past Family/Social History Psychosocial History Who Do You Live With? spouse, child Services at Home: None Primary Language: Jordanian ETOH Use: denies use Illicit Drug Use: denies illicit drug use Functional Ability ADLs Independent: dressing, eating, toileting, bathing. Ambulation: independent Review of Systems Review of Systems Constitutional: Reports: malaise, weakness. Denies: fever. EENTM: Denies: blurred vision, hearing changes, nasal congestion. Cardiovascular: Reports: orthopena. Denies: chest pain, palpitations, syncope. Respiratory: Reports: cough, short of breath. Denies: sputum production. GI: Denies: abdominal pain, constipation, diarrhea, nausea, vomiting. Genitourinary: Denies: dysuria, hematuria. Musculoskeletal: Denies: back pain, joint pain. Skin: Denies: rash. Neurological/Psychological: Denies: confusion, headache. Hematologic/Endocrine: Denies: bleeding. Exam & Diagnostic Data Last 24 Hrs of Vital Signs/I&O Vital Signs Date Time Temp Pulse Resp B/P Pulse O2 O2 Flow FiO2 Ox Delivery Rate 07/22 0317 73 95 07/22 0044 80 120/60 07/22 0016 83 96 07/22 0000 Nasal 3.0L Cannula 07/219 97.5 81 20 120/62 98 Nasal 3.0L Cannula 07/21 2201 93 Nasal 3.0L Cannula 07/21 2140 98.0 83 20 110/62 93 Nasal Cannula 07/21 2020 97.1 73 112/59 100 BIPAP 07/21 1945 74 99 07/21 1912 97.4 82 20 127/60 96 Nasal 4.0L Cannula 07/21 1743 97.3 80 16 133/71 93 Nasal 4.0L Cannula 07/21 1513 83 118/61 07/21 1500 93 Nasal 2.0L Cannula 07/21 1451 97.4 83 16 118/61 91 Nasal 2.0L Cannula 07/21 1149 97.9 83 22 131/74 96 Room Air Intake & Output 07/22 0800 07/22 0000 07/21 1600 Intake Total 260 0 Output Total Balance 260 0 Intake, IV 10 Intake, Oral 250 0 Patient 81.193 kg 81.193 kg Weight Physical Exam General Appearance Alert, Oriented X3, Cooperative, No Acute Distress Skin No Rashes, No Breakdown, No Significant Lesion HEENT Atraumatic, PERRLA, EOMI, Mucous Membr. moist/pink Neck Supple, No JVD Lymphatic NO cervical LN Cardiovascular Regular Rate, Normal S1, Normal S2, No Murmurs Lungs Bilateral diffuse coarse crackle Abdomen Normal Bowel Sounds, Soft, No Tenderness Neurological Normal Speech, Strength at 5/5 X4 Ext, Normal Tone, Sensation Intact, Cranial Nerves 3-12 NL, Reflexes 2+ Extremities No Clubbing, No Cyanosis, BIlateral +1 edema Vascular Normal Pulses, Pulses Symmetrical Assessment/Plan Assessment: Mr. Lomas is a 75 y/o M with chief complain of weakness for two days. He has PMHx of grade 3 diastolic dysfunction, prostate cancer s/p hormone and radiation therapy, rheumatoid arthritis, hypothyroidism, R-sided CVA, cardiac tamponade s/ p pericardial window, HLD, HTN and T2DM on prandin 0.5 mg before meals, no insulin per Dr. Hutchison, blateral loculated puleral effusion, emphysema, baseline hypercabnia, abnormal swallowing test, Hx of elevated globulin gap with exclusion to multipale myloma. on admission Vitals signs were temperature 97.9, pulse 83, respiratory rate 22, blood pressure 131/74 mmHg Labs were WBC count 2.9, hemoglobin 9.0, hematocrit 28.8, platelet count 116, sodium 140, potassium 3.8, carbon dioxide 38, BUN 34, creatinine 1.5, total bilirubin 1.6, proBNP 8040. ABG PH 7.27, Pco2 78, Po257, HCO3 35 Chest x-ray Persistent small bilateral pleural effusions with increased fluid trackin along the right lateral chest wall. Persistent diffuse interstitial markings most suggestive of edema. Stable opacity overlying the right mid to upper lung suggestive of loculated fluid as seen on prior CT. EKG SR and multiple PVCs, no significant changes from previous EKG Problem list -CHF exacerbration -HTN and HLP -DM type 2 -Rheumatoid arthritis on methotrexate -Leukopenia, thrombocyopenia -Chronic anemia -Hypothyrodism -Elevated globulin gap -CHF exacerbration -patient has history of CHFbEF -weakness mostly related to hypoxia given diffuse crackles and abnormal ABG -Lasix 40 mg BID -TRC TID and PRN -Please follow the speech recommendation regarding deit to prevent aspiration -Aspiration precuation -Pulmonary consulation -Consider following CXR and ABG -HTN and HLP -continue home mediaction as blood pressure allows -Enalapril 20 mg daily, metoprolol teatrate 12.5 mg BID -DM type 2 -prandin 0.5 mg before meals, no insulin per Dr. Hutchison -Patient is very sensitive to insulin -HGA1c -Rheumatoid arthritis on methotrexate -Hold methotraxate -Leukopenia, thrombocyopenia -Patient is on methotraxate for RA -Chronic anemia -Continue Folic acid and Vit B 12 -Start ferrious 325 mg daily -Hypothyrodism -Continue synthroid 0.2 MG daily -Check TSH and T4 -Elevated globulin gap -Recent 07/19 Protein electrophoresis showed 17% albumin, alpha 1 globulin 2%, alpha 2 globulin 7%, beta globulin 27% , gammaglobulins 47% -No monprotein was detected Consistent Carbohydrate 2 chopped and thick nectar DVT PPx ALPs Code Full As Ranked By This Provider Problem List: 1. Essential hypertension 2. Hyperlipidemia 3. Hypothyroidism 4. Rheumatoid arthritis 5. Pericardial effusion 6. CHF exacerbation 7. T2DM (type 2 diabetes mellitus) Core Measures/Miscellaneous Acute Coronary Syndrome ACS Diagnosis: No Cerebrovascular Accident CVA/TIA Diagnosis: No Congestive Heart Failure CHF Diagnosis: Yes Venous Thromboembolism VTE Risk Factors: Acute medical illness, Age > 40 VTE Prophylaxis Ordered Inpt: Mechanical (ALPS/TEDS) [facility] prophylaxis d/t: No contraindications No VTE Pharm Prophylaxis d/t: Platelets below ref range VTE Diagnosis: No VTE Type: NONE VTE Confirmed by (Test): NONE Severe Sepsis Severe Sepsis Present: No Septic Shock Septic Shock Present: No Miscellaneous Documentation Attending Case Discussed With: ADELAIDE GILL MD Primary Care Physician: ALICE BARNHART MD Patient sees these Specialists Pulmonory, cardiology Level of Patient Care: Telemetry RANDY AZEVEDO 07/21/16 1704: Resident Review Statement Resident Statement: examined this patient, discussed with dental internship, agreed with dental internship Other Findings: Patient is 75-year-old male with past medical history significant for grade 3 diastolic dysfunction, prostate cancer status post hormonal and radiation therapy, hypothyroidism, rheumatoid arthritis on methotrexate, right-sided CVA, history of cardiac tamponade status post pericardial window, hyper tension, hyperlipidemia and type 2 diabetes mellitus with recent admission at [facility] from 07/01/2016 to 07/11/2016 with CHF exacerbation and aspiration pneumonia and was discharged home. According to his service as her was language barrier and most of the interview was taken by his sons present in the room at the time of interview that patient was doing fine until yesterday when they found him very weak and lethargic. His oxygen saturation dropped to 86% on 2 L nasal cannula. He was also very weak and not able to walk/ambulate. His appetite was poor. He denies any chest pain, palpitations, shortness of breath, wheezing. Currently he is using 3. Os to sleep on which was recently increased from 2 pillows. Almost 4 days ago his Lasix was increased from 40 mg daily to 40 mg twice a day by his PCP. Patient is visited by home nurse and was sent in because of increased in his weight, edema and hypoxia. His admission vitals signs were temperature 97.9, pulse 83, respiratory rate 22, blood pressure 131/74 mmHg Admission labs were WBC count 2.9, hemoglobin 9.0, hematocrit 28.8, platelet count 116, sodium 140, potassium 3.8, carbon dioxide 38, BUN 34, creatinine 1.5, total bilirubin 1.6, proBNP 8040. Chest x-ray showed Persistent small bilateral pleural effusions with increased fluid tracking along the right lateral chest wall. Persistent diffuse interstitial markings most suggestive of edema. Stable opacity overlying the right mid to upper lung suggestive of loculated fluid as seen on prior CT. EKG showed a circular heart rate with sinus rhythm and multiple PVCs, no significant changes from previous EKG Physical examination Oriented 3 but slightly drowsy and lethargic Head atraumatic Neck supple no JVD Chest bilateral basilar crackles especially right lower lobe and decreased air entry on left lower lobe and wheezing Abdomen normal bowel sounds Bilateral eyelid to moderate lower extremity edema Neuro no neurological deficit noted Assessment and plan Patient is 75-year-old male with past medical history significant for grade 3 diastolic dysfunction, prostate cancer status post hormonal and radiation therapy, hypothyroidism, rheumatoid arthritis on methotrexate, right-sided CVA, history of cardiac tamponade status post pericardial window, hyper tension, hyperlipidemia and type 2 diabetes mellitus with recent admission at [facility] from 07/01/2016 to 07/11/2016 with CHF exacerbation and aspiration pneumonia came with chief complaint of hypoxia, weakness and lower extremity edema most likely due to CHF exacerbation. We'll admit patient on telemetry floor Problem list Hypoxia most likely due to CHF exacerbation(underlying significant diastolic dysfunction consistent with restrictive hemodynamics) versus underlying obesity hypoventilation syndrome Bilateral lower extremity edema most likely due to CHF exacerbation History of hypertension Diabetes mellitus Rheumatoid arthritis on methotrexate / immunocompromised status Leukopenia Plan -Vital signs every shift -Continuous telemetry monitoring with strict ins and outs -We will request Cardiology consultation -We will request pulmonology consultation as patient is seen by Dr. Grier in the past will request consultation with Dr. Grier. Patient might need right-sided cardiac cath to look for constrictive pericarditis pathology as was recommended by Dr. Grier during his last admission. -Will start patient on IV Lasix 20 mg twice a day and patient already received 40 mg IV Lasix in emergency room -We will continue his antihypertensives -Patient is on methotrexate every and he already received his 2 days dose at home -Accu-Cheks -Start insulin according to sliding scale. -As patient's platelet count was on lower side we will place patient on Alps for mechanical DVT prophylaxis Heart healthy diet Patient is full code JAIRO TELLES,ADELAIDE 07/21/16 1818: Attending MD Review Statement Attending Statement Attending MD Statement: examined this patient, discuss w/resident/PA/DIRECTOR CREDIT RISK, agreed w/resident/PA/DIRECTOR CREDIT RISK, reviewed EMR data (avail), discussed with nursing, discussed with case mgmt, reviewed images, amended to note Attending Assessment/Plan: 75 y/o M with pmh sig for CH daistolic CHF, CVA, GI ulceration, dyslipidemia, hypertension, hypothyroidism, gastroesophageal reflux disease, rheumatoid arthritis for which he is on methotrexate, prostate carcinoma for which he is s/ p hormone and radiation therapy, and previous hemolytic anemia, pericardial tamponade discovered while he was having a routine outpatient echocardiogram performed that ultimately led to admission (08/04-08/12/2015) and urgent pericardial window by CT surgery (Robbie Arevalo M.D.) who was recently admitted with acute CHF exacerbation. Lasix dose was increased on that admission. History was mostly obtained from patient's son and he does not speak Vietnamese. His O2 sats were found to be low according to the visiting nurses. Patient himself denies any shortness of breath. He was brought into the hospital secondary to having hypoxia. He denies any chest pain, nausea, vomiting. He does have bilateral lower extremity swelling. Dr. Chapman is his fugitive investigator. Vital Signs Date Time Temp Pulse Resp B/P Pulse O2 O2 Flow FiO2 Ox Delivery Rate 07/21 1743 97.3 80 16 133/71 93 Nasal 4.0L Cannula 07/21 1513 83 118/61 07/21 1500 93 Nasal 2.0L Cannula 07/21 1451 97.4 83 16 118/61 91 Nasal 2.0L Cannula 07/21 1149 97.9 83 22 131/74 96 Room Air on exam; somewaht lethargic but arousable. cv; s1,s2, rrr, + PVCs. resp; b/l basal crackles. abd; soft, nt, bs+ ext; 2+ edema b/l Laboratory Tests 07/21 07/21 1613 1409 Chemistry Sodium (137 - 145 mmol/L) 140 Potassium (3.5 - 5.1 mmol/L) 3.8 Chloride (98 - 107 mmol/L) 95 L Carbon Dioxide (22 - 30 mmol/L) 38 H Anion Gap (5 - 16) 7 BUN (9 - 20 mg/dL) 34 H Creatinine (0.7 - 1.2 mg/dL) 1.2 Estimated GFR (>60 ml/min) 59 L BUN/Creatinine Ratio (7 - 25 %) 28.3 H Glucose (65 - 99 mg/dL) 162 H Calcium (8.4 - 10.2 mg/dL) 8.4 Total Bilirubin (0.2 - 1.3 mg/dL) 1.6 H AST (17 - 59 U/L) 34 ALT (21 - 72 U/L) 20 L Alkaline Phosphatase (< 127 U/L) 142 H Troponin I (<0.11 ng/ml) 0.10 Ael-M-[id number] Pept (<125 pg/mL) 8040 H Total Protein (6.3 - 8.2 g/dL) 9.2 H Albumin (3.5 - 5.0 g/dL) 3.1 L Globulin (1.9 - 4.2 gm/dL) 6.1 H Albumin/Globulin Ratio (1.1 - 2.2 %) 0.5 L Coagulation PT (9.4 - 12.5 SEC) 18.5 H INR (0.90 - 1.17) 1.77 H APTT (25 - 37 SEC) 37 Hematology CBC w Diff MAN DIFF ORDERED WBC (4.8 - 10.8 /CUMM) 2.9 L RBC (4.70 - 6.10 /CUMM) 3.81 L Hgb (14.0 - 18.0 G/DL) 9.0 L Hct (42 - 52 %) 28.8 L MCV (80.0 - 94.0 FL) 75.6 L MCH (27.0 - 31.0 PG) 23.6 L RDW (11.5 - 14.5 %) 22.0 H Plt Count (130 - 400 /CUMM) 116 L MPV (7.4 - 10.4 FL) 7.0 L Segmented Neutrophils (42.2 - 75.2 %) 62 Band Neutrophils (0.0 - 5.0 %) 4 Lymphocytes (20.5 - 51.1 %) 17 L Monocytes (1.7 - 9.3 %) 15 H Eosinophils (0 - 5.0 %) 1 Metamyelocytes (0.0 - 1.0 %) 1 Platelet Estimate (ADEQUATE) VERIFIED BY SMEAR Hypochromic-Microcytic 1+ Anisocytosis 1+ PUBS MCHC (33.0 - 37.0 G/DL) 31.3 L Urines Urine Color (YEL,AMB,STR) YEL Urine Clarity (CLEAR) CLEAR Urine pH (5.0 - 8.0) 6.0 Ur Specific [place] (1.001 - 1.035) 1.025 Urine Protein (NEG,<30 MG/DL) 30 H Urine Ketones (NEG) NEG Urine Nitrite (NEG) NEG Urine Bilirubin (NEG) NEG Urine Urobilinogen (0.1 - 1.0 EU/dl) 2.0 H Ur Leukocyte Esterase (NEG) NEG Ur Microscopic SEDIMENT EXAMINED Urine RBC (0 - 5 /HPF) 3-5 Urine WBC (0 - 2 /HPF) 1-3 H Ur Epithelial Cells (NONE,FEW) MANY H Hyaline Casts (0/LPF) MANY H Granular Casts (NONE /LPF) FEW H Urine Hemoglobin (NEG) TRACE-LYSED H Urine Glucose (N MG/DL) NEG 07/21 1408 Coagulation APTT Cancelled EKG shows sinus rhythm with PVCs. Chest x-ray. IMPRESSION: Persistent small bilateral pleural effusions with increased fluid tracking along the right lateral chest wall. Persistent diffuse interstitial markings most suggestive of edema. Stable opacity overlying the right mid to upper lung suggestive of loculated fluid as seen on prior CT. A/P; 75 y/o M with pmh sig for CH daistolic CHF, CVA, GI ulceration, dyslipidemia, hypertension, hypothyroidism, gastroesophageal reflux disease, rheumatoid arthritis for which he is on methotrexate, prostate carcinoma for which he is s/p hormone and radiation therapy, and previous hemolytic anemia, pericardial tamponade discovered while he was having a routine outpatient echocardiogram performed that ultimately led to admission (08/04-08/12/2015) and urgent pericardial window by CT surgery who is now admitted with hypoxia likely related to acute diastolic congestive heart failure exacerbation. Also need to rule out hypercarbic respiratory failure as patient was lethargic. Patient is admitted to telemetry. Blood gas will be obtained. Patient will be diuresed with IV Lasix. Please check strict intake and output as well as daily weights. Please trended troponins. Please consult cardiology and pulmonology. Please confirm home medications and continue. Patient also has pancytopenia. Question of this is related to his history of prostate cancer versus methotrexate. Please obtain oncology consult with Dr. Tiwari in the morning. Patient has microcytic anemia but recently his iron studies were normal. Please check stool for guaiac. DVT prophylaxis: ALPS secondary to thrombocytopenia. Patient is a full code
--- NOTE | 2016-07-21 17:01 | NUR ---
PT HAS BED ASSIGNEMNT 174-1. BED IS NOT CLEAN YET.
[2016-07-21 18:09] LABS: PT 18.5 SEC (9.4-12.5); PTT 37 SEC (25-37)
--- NOTE | 2016-07-21 18:36 | NUR ---
LAB CALLED FOR ?PENDING LACTIC ORDER. WAS NOT RUN WHEN SENT, WILL NOW BE RUN.
--- NOTE | 2016-07-21 18:46 | NUR ---
REPORT GIVEN TO CAMACHO ORTIZ.
--- NOTE | 2016-07-21 18:58 | NUR ---
PT'S O2 SAT 82-[address] ROD AWARE. OXYGEN TURNED UP TO 4L WITH IMPROVEMENT TO 91-92%. RESP AT BEDSIDE FOR SAT ABG.
--- NOTE | 2016-07-21 19:03 | Cons- Pulmonary ---
General Information and HPI Consulting Request Date of Consult: 07/21/16 Requested By: er History of Present Illness: This is a 75 year old male who presents from home with family for weakness, cough and weight gain for the past few days. Lasix was increased from 40 mg twice a day from once a day by Dr. Farley. He said he is on home oxygen 2 L throughout the day but states that he doesn't feel the home unit is working. This is new from last week since discharge. Since increasing the Lasix he states his appetite has been very poor and he has been very weak, too weak to walk today. No fever or chills. No productive cough but cough all night long. No chest pain. Review of Systems Constitutional: Reports: weakness. Denies: chills, fever. EENTM: Reports: no symptoms. Respiratory: Reports: cough. Denies: short of breath, sputum production. Cardiovascular: Reports: no symptoms. GI: Denies: abdominal pain, diarrhea, vomiting. Genitourinary: Denies: discharge, dysuria. Musculoskeletal: Reports: no symptoms. Skin: Reports: no symptoms. Neurological/Psychological: Reports: no symptoms. Hematologic/Endocrine: Denies: bruising, bleeding, polyuria, polydipsia. Immunologic/Allergic: Denies: splenectomy. All Other Systems: Reviewed and Negative Allergies/Medications Allergies: Coded Allergies: aspirin (Mild, ULCER 10/13/15) Home Med List: Enalapril Maleate 20 MG TAB 1 TAB PO DAILY HTN (Reported) Folic Acid 1 MG TABLET 2 MG PO DAILY SUPPLEMENT (Reported) Furosemide (Lasix) 40 MG TABLET 1 TAB PO BID DIURETIC (Reported) Levothyroxine Sodium 0.2 MG TAB 1 TAB PO DAILY THYROID (Reported) Methotrexate 2.5 MG TABLET 5 MG PO QTHURS RHEUMATOID ARTHRITIS (Reported) Metoprolol Tartrate 25 MG TABLET 12.5 MG PO BID HEART HEALTH Repaglinide (Prandin) 0.5 MG TABLET 1 TAB PO TIDAC DIABETES Hold prandin if you skip a meal Review of Systems Review of Systems Constitutional: Reports: see HPI. 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 spouse, child Services at Home: None Primary Language: Burmese ETOH Use: denies use Illicit Drug Use: denies illicit drug use Functional Ability ADLs Independent: dressing, eating, toileting, bathing. Ambulation: independent Exam & Diagnostic Data Last 24 Hrs of Vital Signs/I&O Vital Signs Date Time Temp Pulse Resp B/P Pulse O2 O2 Flow FiO2 Ox Delivery Rate 07/21 1743 97.3 80 16 133/71 93 Nasal 4.0L Cannula 07/21 1513 83 118/61 07/21 1500 93 Nasal 2.0L Cannula 07/21 1451 97.4 83 16 118/61 91 Nasal 2.0L Cannula 07/21 1149 97.9 83 22 131/74 96 Room Air Intake & Output 07/21 1600 07/21 0800 07/21 0000 Intake Total 0 Output Total Balance 0 Intake, Oral 0 Patient 179 lb Weight Last 48 Hrs of Labs/Thomas: Laboratory Tests 07/21/16 1613: Urine Color YEL, Urine Clarity CLEAR, Urine pH 6.0, Ur Specific [place] 1.025, Urine Protein 30 H, Urine Ketones NEG, Urine Nitrite NEG, Urine Bilirubin NEG, Urine Urobilinogen 2.0 H, Ur Leukocyte Esterase NEG, Ur Microscopic SEDIMENT EXAMINED, Urine RBC 3-5, Urine WBC 1-3 H, Ur Epithelial Cells MANY H, Hyaline Casts MANY H, Granular Casts FEW H, Urine Hemoglobin TRACE-LYSED H, Urine Glucose NEG 07/21/16 1409: Lactic Acid 1.2 07/21/16 1409: Anion Gap 7, Estimated GFR 59 L, BUN/Creatinine Ratio 28.3 H, Glucose 162 H, Calcium 8.4, Total Bilirubin 1.6 H, AST 34, ALT 20 L, Alkaline Phosphatase 142 H, Troponin I 0.10, Rel-G-Fjaqtyhmvpt Pept 8040 H, Total Protein 9.2 H, Albumin 3.1 L, Globulin 6.1 H, Albumin/Globulin Ratio 0.5 L, PT 18.5 H, INR 1.77 H, APTT 37, CBC w Diff MAN DIFF ORDERED, RBC 3.81 L, MCV 75.6 L, MCH 23.6 L, RDW 22.0 H, MPV 7.0 L, Segmented Neutrophils 62, Band Neutrophils 4, Lymphocytes 17 L, Monocytes 15 H, Eosinophils 1, Metamyelocytes 1, Platelet Estimate VERIFIED BY SMEAR, Hypochromic-Microcytic 1+, Anisocytosis 1+, PUBS MCHC 31.3 L 07/21/16 1408: APTT Cancelled Assessment/Plan Impression/Plan: Physical Exam: Well-developed, well-nourished elderly male, was lethargic but easily arousable Appeared short of breath Vital signs: See above. HEENT: Normocephalic, atraumatic, EOMI, moist mucous membranes. Neck: No JVD, no bruits. Lungs: Bibasilar crackles. Mild wheezing Heart: S1, S2 with no murmur, gallop, or rub appreciated. PMI fifth ICS at [facility]. Abdomen: Soft, nontender, positive bowel sounds. Extremities: Trace bilateral lower extremity edema. Neurological exam patient was mildly lethargic but easily arousable. SIGNIFICANT DATA Previous echocardiogram showed significant mild anterior wall hypokinesis and restrictive filling pattern with moderate pulmonary hypertension Chest x-ray done showed bilateral pleural effusion with persistent diffuse interstitial edema stable opacity with loculated fluid in the chest which is not changed from before He has chronically elevated creatinine bicarbonate is 38 anion gap was normal White count was low at 2.9 platelets are low at 116 is chronically anemic with hemoglobin of 9 with MCV of 75 is INR was 1.77 his previous immunoelectrophoresis showed chronic inflammatory process his anti-CCP was very high no monoclonal antibody seen in his electrophoresis His CT chest reviewed which showed congestive heart failure with loculated pleural effusion small pericardial effusion also. IMPRESSION This is a gentleman with history of rheumatoid arthritis on methotrexate hence immunosuppressed, Previous sig pericardial effusion prob related to RA s/p window with neg cytology and cultures for any malignancy and infections, Chronic loculated effusion both sides due to inflammatory path due to RA, significant diastolic heart disease with thickened pericardium with prob restrictive physiology, diabetes, coronary artery disease, now has the following issues * Persistant pulmonary edema significant diastolic dysfunction consistent with restrictive hemodynamics. * He has had previous history of pericardial window and he has thickened pericardium this may be also causing constictive pericaridal path. THis is related to sig RA with sig serositis * On off aspiration in the past * Bilateral loculated pleural effusion in the fissure related to inflammatory process, and the pathology is prob the same as his the pathology which caused his pericardial effusion i.e. rheumatoid arthritis. His TB cultures have been negative in the past. There is no clear evidence suggestive of empyema or significant pulmonary malignancy, cytology neg from pericardial window * Baseline hypoxia due to effusions and chronic chf with Significant baseline hypercarbia probably does have sleep apnea central and obstructive aswell based on the history. His thyroid function is normal and now lethragic with prob acute hypercarbic resp failure aswell * Prior granulomatous lung disease with mild emphysema * Sig microcytic anemia with prob anemia of chronic disease * Mild pancytopenia rule out myelodysplasia * Sig history of RHeumatoid and hence immunosuppressed * Chronic kidney disease stage II, with diabetes with mild proteinuria and hypertension REC Continue gentle diuresis ABG BiPAP as tolerated tonight Keep his potassium more than 4 We will consider Diamox tomorrow if his bicarbonate persistently is elevated Cardiology to consider further workup for restrictive cardiomyopathy Continue levothyroxine and check free T4 Eventually patient would need workup for pancytopenia Patient seemed to have elevated INR probably related to hepatic congestion and he may have some component of chronic liver dysfunction Unlikely that the patient has pulmonary embolism - symptomatology is not consistent with that if it's a concern get lower extremity Doppler as he is not a great candidate for CTA at this present time, due to chronic kidney disease Anticoagulation for prevention of DVT Hold methotrexate Continue folic acid Start B12 1000 international units daily Fingerstick glucose and sliding scale Repeat his INR tomorrow Prognosis is guarded Consult Acknowledgment - Thank you for your consult request.
--- NOTE | 2016-07-21 19:19 | NUR ---
THIS RN NOW ASSUMING CARE OF PT.
--- NOTE | 2016-07-21 19:19 | NUR ---
RESP AT BEDSIDE WITH BIPAP.
--- NOTE | 2016-07-21 20:27 | NUR ---
HOUSESTAFF PAGED. WILL BE DOWN SHORTLY TO SEE PT.
--- NOTE | 2016-07-21 20:45 | NUR ---
MD YOJANA MATHIS HERE TO EVAL PT. MD MATHIS MADE AWARE THAT THIS IS PT'S FIRST TIME ON BIPAP AND USUALLY PT WOULD GO TO ICU FOR SUCH CIRCUMSTANCES. MD MATHIS STATES THAT PT IS FINE TO GO TO TELE UNIT.
--- NOTE | 2016-07-21 20:50 | NUR ---
[facility] CALLED FOR TRANSPORT.
--- NOTE | 2016-07-21 21:00 | NUR ---
SPOKE WITH MOD ABOUT PT CONDITION AND CONCERNS ABOUT BEING ADMITTED TO TELE. HOUSE STAFF DETERMINED PT TO REMAIN ON TELE
[2016-07-21 21:41] VITALS: BP 110/62
[2016-07-21 23:59] VITALS: BP 120/62
--- NOTE | 2016-07-22 00:03 | NUR ---
PT ADMITTED TO ROOM #174-1 AT ABOUT 2130. VSS. 110/62,75,97.6,18,93% ON 3L OZ NC. NO C/O PAIN. +1 PITTING EDEMA OF BLE. TRACE EDEMA BUE. LUNGS CLEAR. IV TO RH FLUSHED/PATENT. FAMILY AT BEDSIDE- PT BELKIS SPEAKING. NSR ON THE MONITOR. PT RECIVED WELCOME PACKET. SAFTEY MAINTAINED. CALL CAMACHO WITHIN REACH.
--- NOTE | 2016-07-22 01:45 | NUR ---
CRITICAL LAB VALUE TROPONIN 0.14. MD ANAND AWARE. TP FLOOR TOVIEW EKG. PT DENIES CHESTPAIN. REPEAT EKG/TROPONIN AT 0600.
--- NOTE | 2016-07-22 07:34 | Cons- Hematology ---
General Information and HPI Consulting Request Date of Consult: 07/22/16 Requested By: ADELAIDE GILL MD History of Present Illness: The patient is a 75-year-old man with rheumatoid arthritis who I have treated in the past hemolytic anemia now admitted with profound weakness. This is associated with mild pancytopenia. The patient recently in my office has been slightly more anemic (Hct ~32%). Workup did not suggest active hemolysis, there was no GI bleeding (stools Hemoccult negative) and iron studies suggested anemia of chronic disease. Patient denies increased bleeding or bruising or obvious blood loss. The patient is currently receiving oral methotrexate for his rheumatoid arthritis. Allergies/Medications Allergies: Coded Allergies: aspirin (Mild, ULCER 10/13/15) Home Med List: Enalapril Maleate 20 MG TAB 1 TAB PO DAILY HTN (Reported) Folic Acid 1 MG TABLET 2 MG PO DAILY SUPPLEMENT (Reported) Furosemide (Lasix) 40 MG TABLET 1 TAB PO BID DIURETIC (Reported) Levothyroxine Sodium 0.2 MG TAB 1 TAB PO DAILY THYROID (Reported) Methotrexate 2.5 MG TABLET 5 MG PO QTHURS RHEUMATOID ARTHRITIS (Reported) Metoprolol Tartrate 25 MG TABLET 12.5 MG PO BID HEART HEALTH Repaglinide (Prandin) 0.5 MG TABLET 1 TAB PO TIDAC DIABETES Hold prandin if you skip a meal Current Medications: Current Medications Sig/Lenny Start time Last Medication Dose Route Stop Time Status Admin Acetaminophen 650 MG Q6P PRN 07/21 1700 AC PO Acetaminophen/ 1 TAB Q6P PRN 07/21 1700 AC Hydrocodone Bitart PO Cyanocobalamin 1,000 MCG DAILY 07/21 1932 AC PO Diphenhydramine HCl 0 .STK-MED ONE 07/21 1831 DC .ROUTE Folic Acid 2 MG DAILY 07/22 1000 AC PO Furosemide 20 MG BID 07/21 2200 AC 07/22 IV 0044 Furosemide 0 .STK-MED ONE 07/21 1503 DC IV Furosemide 40 MG ONCE ONE 07/21 1500 DC 07/21 IV 07/21 1501 1513 Insulin Aspart 0 TIDAC/HS 07/21 2100 DC SC Levothyroxine Sodium 0.2 MG DAILY 07/22 1000 AC PO Lisinopril 20 MG DAILY 07/22 1000 AC PO Metoprolol Tartrate 12.5 MG BID 07/21 2200 AC 07/22 PO 0044 Metoprolol Tartrate 0 .STK-MED ONE 07/21 1503 DC PO Metoprolol Tartrate 12.5 MG ONCE ONE 07/21 1500 DC 07/21 PO 07/21 1501 1513 Oxycodone HCl 10 MG Q6P PRN 07/21 1700 AC PO Potassium Chloride 40 MEQ ONCE ONE 07/21 1945 DC 07/22 PO 07/21 1946 0044 Potassium Chloride 0 .STK-MED ONE 07/21 1941 DC PO Repaglinide 0.5 MG TIDAC 07/22 0800 AC PO Review of Systems Review of Systems: Patient denies significant headache or blurred vision. Patient denies productive sputum chest pain or hemoptysis. Patient denies nausea vomiting or blood loss. Patient denies dysuria or hematuria. 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 spouse, child Services at Home: None Primary Language: [facility] Smoking Status: Former Smoker ETOH Use: denies use Illicit Drug Use: denies illicit drug use Functional Ability ADLs Independent: dressing, eating, toileting, bathing. Ambulation: independent Exam & Diagnostic Data Vital Signs and I&O Vital Signs Date Time Temp Pulse Resp B/P Pulse O2 O2 Flow FiO2 Ox Delivery Rate 07/22 0613 69 98 07/22 0317 73 95 07/22 0044 80 120/60 07/22 0016 83 96 07/22 0000 Nasal 3.0L Cannula 07/21 2358 97.5 81 20 120/62 98 Nasal 3.0L Cannula 07/21 2201 93 Nasal 3.0L Cannula 07/21 2140 98.0 83 20 110/62 93 Nasal Cannula 07/21 2020 97.1 73 112/59 100 BIPAP 07/21 1944 74 99 07/21 1911 97.4 82 20 127/60 96 Nasal 4.0L Cannula 01/19 1743 97.3 80 16 133/71 93 Nasal 4.0L Cannula 07/21 1513 83 118/61 07/21 1500 93 Nasal 2.0L Cannula 07/21 1451 97.4 83 16 118/61 91 Nasal 2.0L Cannula 07/21 1149 97.9 83 22 131/74 96 Room Air Intake & Output 07/22 0800 07/22 0000 07/21 1600 Intake Total 120 260 0 Output Total 100 Balance 20 260 0 Intake, IV 10 Intake, Oral 120 250 0 Output, Urine 100 Patient 179 lb 179 lb 179 lb Weight Gen.: in NAD ENT: Sclera anicteric Chest: Normal respiratory effort, decreased breath sounds Cor: RRR, without rub Abdomen: Soft, bowel sounds present, no tenderness, no rebound Extremities: Without clubbing, cyanosis, or asymmetric edema Neurology: Alert and oriented 3, no gross focal deficit Last 48 Hours of Lab Results: Laboratory Tests 07/22 07/21 0035 1900 Blood Gas pH (7.35 - 7.45 PH) 7.27 *L pCO2 (35 - 45 TORR) 78 *H pO2 (80 - 100 TORR) 57 L HCO3 (21 - 28 MEQ/L) 35 H ABG O2 Sat (Measured) (>96.0 %) 87.0 L Carboxyhemoglobin (1.5 - 5.0 %) 1.5 O2 Concentration % 4L O2 Delivery Method NC Chemistry Troponin I (<0.11 ng/ml) 0.14 *H Miscellaneous Phlebotomy Draw Site RIGHT RADIAL 07/21 07/21 1613 1409 Chemistry Lactic Acid (0.7 - 2.1 mmol/L) 1.2 Urines Urine Color (YEL,AMB,STR) YEL Urine Clarity (CLEAR) CLEAR Urine pH (5.0 - 8.0) 6.0 Ur Specific [place] (1.001 - 1.035) 1.025 Urine Protein (NEG,<30 MG/DL) 30 H Urine Ketones (NEG) NEG Urine Nitrite (NEG) NEG Urine Bilirubin (NEG) NEG Urine Urobilinogen (0.1 - 1.0 EU/dl) 2.0 H Ur Leukocyte Esterase (NEG) NEG Ur Microscopic SEDIMENT EXAMINED Urine RBC (0 - 5 /HPF) 3-5 Urine WBC (0 - 2 /HPF) 1-3 H Ur Epithelial Cells (NONE,FEW) MANY H Hyaline Casts (0/LPF) MANY H Granular Casts (NONE /LPF) FEW H Urine Hemoglobin (NEG) TRACE-LYSED H Urine Glucose (N MG/DL) NEG 07/21 07/21 1409 1408 Chemistry Sodium (137 - 145 mmol/L) 140 Potassium (3.5 - 5.1 mmol/L) 3.8 Chloride (98 - 107 mmol/L) 95 L Carbon Dioxide (22 - 30 mmol/L) 38 H Anion Gap (5 - 16) 7 BUN (9 - 20 mg/dL) 34 H Creatinine (0.7 - 1.2 mg/dL) 1.2 Estimated GFR (>60 ml/min) 59 L BUN/Creatinine Ratio (7 - 25 %) 28.3 H Glucose (65 - 99 mg/dL) 162 H Calcium (8.4 - 10.2 mg/dL) 8.4 Total Bilirubin (0.2 - 1.3 mg/dL) 1.6 H AST (17 - 59 U/L) 34 ALT (21 - 72 U/L) 20 L Alkaline Phosphatase (< 127 U/L) 142 H Troponin I (<0.11 ng/ml) 0.10 [id number] Pept (<125 pg/mL) 8040 H Total Protein (6.3 - 8.2 g/dL) 9.2 H Albumin (3.5 - 5.0 g/dL) 3.1 L Globulin (1.9 - 4.2 gm/dL) 6.1 H Albumin/Globulin Ratio (1.1 - 2.2 %) 0.5 L Coagulation PT (9.4 - 12.5 SEC) 18.5 H INR (0.90 - 1.17) 1.77 H APTT (25 - 37 SEC) 37 Cancelled Hematology CBC w Diff MAN DIFF ORDERED WBC (4.8 - 10.8 /CUMM) 2.9 L RBC (4.70 - 6.10 /CUMM) 3.81 L Hgb (14.0 - 18.0 G/DL) 9.0 L Hct (42 - 52 %) 28.8 L MCV (80.0 - 94.0 FL) 75.6 L MCH (27.0 - 31.0 PG) 23.6 L RDW (11.5 - 14.5 %) 22.0 H Plt Count (130 - 400 /CUMM) 116 L MPV (7.4 - 10.4 FL) 7.0 L Segmented Neutrophils (42.2 - 75.2 %) 62 Band Neutrophils (0.0 - 5.0 %) 4 Lymphocytes (20.5 - 51.1 %) 17 L Monocytes (1.7 - 9.3 %) 15 H Eosinophils (0 - 5.0 %) 1 Metamyelocytes (0.0 - 1.0 %) 1 Platelet Estimate (ADEQUATE) VERIFIED BY SMEAR Hypochromic-Microcytic 1+ Anisocytosis 1+ PUBS MCHC (33.0 - 37.0 G/DL) 31.3 L PSA 16 0.44 Assessment/Plan Assessment: 1. Modest pancytopenia-patient continues on methotrexate. Certainly this drug in combination with rheumatoid arthritis can produce this hematologic picture. I have a low suspicion for metastatic prostate cancer or the development of a myelodysplastic syndrome. Given the near normal bilirubin, hemolysis also seems unlikely. The patient is not neutropenic. Recommend- Check direct Isabella LDH Check stools for occult blood Hold methotrexate Reticulocyte count Peripheral smear to be reviewed 2. Coagulopathy Recommend- Empiric vitamin K Check fibrinogen 3. Cardiopulmonary status-as per consultants Recommendations: .. Consult Acknowledgment - Thank you for your consult request.
--- NOTE | 2016-07-22 07:52 | NUR ---
PT VOIDED 100 ML OF DARK YELLOW URINE FROM 2300-700. MD JONES MADE AWARE.
[2016-07-22 08:00] VITALS: BP 100/50
--- NOTE | 2016-07-22 08:00 | PN- Housestaff ---
JOHANN TELLES,[facility] 07/22/16 0759: Subjective Follow-up For: Weakness B/L LE edema Diastolic CHF Hypoxia and preexistant loculated pleural effusion Resistant pulmonary edema Tele-Events Since Last Visit: SR, 60s-80s, BBB Subjective: I saw and examined the patient at bedside today, he is alert and oriented in no acute distress. Family is at bedside and translate for the patient, he does not report any chest pain, SOB, palpitation, reported mild LE edema. States breathing has improved since last night. Review of Systems Constitutional: Reports: weakness. Denies: chills, fever. EENTM: Reports: no symptoms. Cardiovascular: Reports: edema, peripheral edema. Denies: chest pain, palpitations. Respiratory: Reports: short of breath, wheezing. Denies: cough, sputum production. Gastrointestinal: Denies: abdominal pain, changes in stool. Genitourinary: Denies: discharge, dysuria. Musculoskeletal: Denies: back pain, joint pain, joint swelling. Skin: Reports: no symptoms. Neurological/Psychological: Reports: no symptoms. Objective Last 24 Hrs of Vital Signs/I&O Vital Signs Date Time Temp Pulse Resp B/P Pulse O2 O2 Flow FiO2 Ox Delivery Rate 07/22 1208 80 105/56 07/22 1208 80 105/56 07/22 1045 98.3 87 20 120/52 95 Nasal 1.0L Cannula 07/22 1027 85 100/56 07/22 0800 95 Nasal 3.0L Cannula 07/22 0800 97.9 75 20 100/50 95 Nasal 3.0L Cannula 07/22 0613 69 98 07/22 0317 73 95 07/22 0044 80 120/60 07/22 0016 83 96 07/22 0000 Nasal 3.0L Cannula 07/21 2359 97.5 81 20 120/62 98 Nasal 3.0L Cannula 07/21 2202 93 Nasal 3.0L Cannula 07/21 2141 98.0 83 20 110/62 93 Nasal Cannula 07/21 2020 97.1 73 112/59 100 BIPAP 07/21 1945 74 99 07/21 1912 97.4 82 20 127/60 96 Nasal 4.0L Cannula Intake & Output 07/22 1600 07/22 0800 07/22 0000 Intake Total 200 120 260 Output Total 50 100 Balance 150 20 260 Intake, IV 10 Intake, Oral 200 120 250 Number 1 Bowel Movements Output, Stool 50 Output, Urine 100 Patient 81.25 kg 81.193 kg Weight Physical Exam General Appearance: Alert, Oriented X3, Cooperative, No Acute Distress Skin: No Rashes, No Breakdown, No Significant Lesion HEENT: Atraumatic, PERRLA, EOMI, dry mucous membranes Neck: Supple Cardiovascular: Regular Rate, Normal S1, Normal S2, No Murmurs Lungs: bilateral diffuse expiratory wheezes, decreased breath sounds Abdomen: Normal Bowel Sounds, Soft, No Tenderness Neurological: Normal Speech, Strength at 5/5 X4 Ext, Normal Tone, Sensation Intact Extremities: 1+ pitting edema, bilateral LE Vascular: Normal Pulses, Pulses Symmetrical Current Medications: Current Medications Sig/Lenny Start time Last Medication Dose Route Stop Time Status Admin Acetaminophen 650 MG Q6P PRN 07/21 1700 AC PO Acetaminophen/ 1 TAB Q6P PRN 07/21 1700 AC Hydrocodone Bitart PO Acetazolamide 250 MG DAILY 07/22 1145 AC 07/22 PO 1526 Cyanocobalamin 1,000 MCG DAILY 07/21 1932 AC 07/22 PO 1016 Diphenhydramine HCl 0 .STK-MED ONE 07/21 1831 DC .ROUTE Folic Acid 2 MG DAILY 07/22 1000 AC 07/22 PO 1016 Furosemide 20 MG BID 07/21 2200 AC 07/22 IV 1016 Heparin Sodium 5,000 UNIT Q8 07/22 1400 AC 07/22 (Porcine) SC 1527 Insulin Aspart 0 TIDAC/HS 07/21 2100 DC SC Levothyroxine Sodium 0.2 MG DAILY 07/22 1000 AC 07/22 PO 0808 Lisinopril 20 MG DAILY 07/22 1000 AC 07/22 PO 1208 Metoprolol Tartrate 12.5 MG BID 07/220 AC PO Metoprolol Tartrate 12.5 MG BID 07/21 2200 DC 07/22 PO 1208 Omeprazole 20 MG DAILY AC 07/22 1130 AC 07/22 PO 1208 Oxycodone HCl 10 MG Q6P PRN 07/21 1700 AC PO Phytonadione 5 MG DAILY 07/22 1145 AC 07/22 PO 07/24 2199 1526 Potassium Chloride 40 MEQ .STK-MED ONE 07/22 0038 DC PO 07/22 0039 Potassium Chloride 40 MEQ ONCE ONE 07/21 1944 DC 07/22 PO 07/21 1945 0044 Potassium Chloride 0 .STK-MED ONE 07/21 1940 DC PO Prednisone 20 MG DAILY 07/22 1500 AC PO Repaglinide 0.5 MG TIDAC 07/22 0800 AC 07/22 PO 1708 Last 24 Hrs of Lab/Thomas Results Last 24 Hrs of Labs/Mics: Laboratory Tests 07/22/16 1425: Troponin I 0.12 *H 07/22/16 1200: Lactate Dehydrogenase 338, Fibrinogen Activity 305, Retic Count 2.30 H 07/22/16 0620: Anion Gap 7, Estimated GFR 45 L, BUN/Creatinine Ratio 27.3 H, Troponin I 0.16 *H, TSH 1.150, Free T4 1.92, PT 18.8 H, INR 1.80 H, CBC w Diff MAN DIFF ORDERED, RBC 3.22 L, MCV 76.0 L, MCH 24.3 L, RDW 22.4 H, MPV 6.8 L, Gran % 35.8 L, Lymphocytes % 38.6, Monocytes % 24.7 H, Eosinophils % 0.3, Basophils % 0.6, Absolute Granulocytes 1.0 L, Segmented Neutrophils 33 L, Band Neutrophils 8 H, Absolute Lymphocytes 1.0 L, Lymphocytes 34, Monocytes 25 H, Absolute Monocytes 0.7 H, Absolute Eosinophils 0, Absolute Basophils 0, Nucleated RBCs 1 H, Platelet Estimate DECREASED, Polychromasia 1+, Hypochromic-Microcytic 1+, Poikilocytosis 1+, Anisocytosis 2+, Microcytic Cells 1+, PUBS MCHC 32.0 L 07/22/16 0035: Troponin I 0.14 *H 07/21/16 1900: pH 7.27 *L, pCO2 78 *H, pO2 57 L, HCO3 35 H, ABG O2 Sat (Measured) 87.0 L, Carboxyhemoglobin 1.5, O2 Concentration % 4L, O2 Delivery Method NC, Phlebotomy Draw Site RIGHT RADIAL Assessment/Plan Assessment: Mr. Lomas is a 75 y/o M with chief complain of weakness for two days. He has PMHx of grade 3 diastolic dysfunction, prostate cancer s/p hormone and radiation therapy, rheumatoid arthritis, hypothyroidism, R-sided CVA, cardiac tamponade s/ p pericardial window, HLD, HTN and T2DM on prandin 0.5 mg before meals, no insulin per Dr. Hutchison, bilateral loculated pleural effusion, emphysema, baseline hypercarbia, abnormal swallowing test, Hx of elevated globulin gap with exclusion to multiple myeloma. Problem list -CHF exacerbation -HTN and HLP -DM type 2 -Rheumatoid arthritis on methotrexate -Leukopenia, thrombocytopenia -Chronic anemia -Hypothyroidism -Elevated globulin gap Plan CHF exacerbation -patient has history of CHFbEF -weakness mostly related to hypoxia given diffuse crackles and abnormal ABG -Lasix 40 mg BID -TRC TID and PRN -Aspiration precaution -Pulmonary consultation obtained followed recommendations -ABG at 6 pm tonight to assess PCO2 Elevated troponin Troponin went up from 0.1 to 0.14 and 0.16 which came down to 0.12 this pm, no EKG changes, no chest pain reported by the patient. cardiology on board, suggested ECHO, please follow report, also follow up with cardiology regarding final decision for a stress test HTN and HLP -continue home medication as blood pressure allows -Enalapril 20 mg daily, metoprolol tartrate 12.5 mg BID DM type 2 -prandin 0.5 mg before meals, no insulin per Dr. Hutchison -Patient is very sensitive to insulin -HGA1c ordered for tomorrow AM Rheumatoid arthritis on methotrexate -Hold methotrexate -started on prednisone 20 mg daily Leukopenia, thrombocytopenia -Patient is on methotrexate for RA -consult obtained with Dr. Nevarez, please follow the labs ordered based on his recommendations (to rule out hemolysis) Chronic anemia -Continue Folic acid and Vit B 12 -Start ferrous 325 mg daily Hypothyroidism -Continue synthroid 0.2 MG daily -Checked TSH and T4:WNL Elevated globulin gap -Recent 07/19 Protein electrophoresis showed 17% albumin, alpha 1 globulin 2%, alpha 2 globulin 7%, beta globulin 27% , gammaglobulin 47% Consistent Carbohydrate 3 chopped and thick nectar DVT PPx ALPs Code Full Problem List: 1. Congestive heart failure 2. Hypoxia Pain Ratin Pain Location: no pain Pain Goal: Pain 4 or less Pain Plan: tylenol for mild pain Tomorrow's Labs & Rationales: CBC (anemia, pancytopenia), BEP (elevated Cr) VICTORINO OBRIEN MD 07/22/16 2132: Attending MD Review Statement Attending Statement Attending MD Statement: examined this patient, discuss w/resident/PA/SPECIALIST PHYSICIAN, agreed w/resident/PA/SPECIALIST PHYSICIAN, discussed with family, reviewed EMR data (avail), discussed with nursing, discussed with case mgmt, amended to note Attending Assessment/Plan: The patient was seen and discussed with house staff. Appreciate Pulmonary and GI input. Await final Cardiology recomendations regarding potential stress test/ cath?
[2016-07-22 08:23] LABS: PT 18.8 SEC (9.4-12.5)
[2016-07-22 08:30] LABS: ABSOLUTE BASOPHIL COUNT 0 /CUMM (0.0-0.2); ABSOLUTE EOSINOPHIL COUNT 0 /CUMM (0.0-0.7); ABSOLUTE MONOCYTE COUNT 0.7 /CUMM (0.10-0.60); BASOPHIL % 0.6 % (0.0-2.0); EOSINOPHIL % 0.3 % (0-5); GRANULOCYTE % 35.8 % (42.2-75.2); HEMATOCRIT 24.4 % (42-52); MEAN CORPUSCULAR HGB 24.3 PG (27.0-31.0); MEAN PLATELET VOLUME 6.8 FL (7.4-10.4); PLATELET COUNT 117 /CUMM (130-400); RBC DISTRIBUTION WIDTH 22.4 % (11.5-14.5); RED BLOOD CELL CT 3.22 /CUMM (4.70-6.10); WHITE BLOOD CELL COUNT 2.7 /CUMM (4.8-10.8)
--- NOTE | 2016-07-22 09:14 | PN- Pulmonary ---
Subjective HPI/Critical Care Issues: Doing a little better Afebrile Did use BiPAP and more awake Less short of breath On 3 L nasal cannula saturating 99% Review of symptoms otherwise unremarkable no chest pain nausea vomiting Patient has had minimal urine output so far Blood work reviewed creatinine up to 1.5 bicarbonate 38 which is stable C BC pending ABG done yesterday showed 7.27/78 PCO2/57 oxygen on 4 L nasal cannula Objective Current Medications: Current Medications Sig/Lenny Start time Last Medication Dose Route Stop Time Status Admin Acetaminophen 650 MG Q6P PRN 07/21 1700 AC PO Acetaminophen/ 1 TAB Q6P PRN 07/21 1700 AC Hydrocodone Bitart PO Cyanocobalamin 1,000 MCG DAILY 07/21 193 AC PO Diphenhydramine HCl 0 .STK-MED ONE 07/21 1831 DC .ROUTE Folic Acid 2 MG DAILY 07/22 1000 AC PO Furosemide 20 MG BID 07/21 2200 AC 07/22 IV 0044 Furosemide 0 .STK-MED ONE 07/21 1503 DC IV Furosemide 40 MG ONCE ONE 07/21 1500 DC 07/21 IV 07/21 1501 1513 Insulin Aspart 0 TIDAC/HS 07/21 2100 DC SC Levothyroxine Sodium 0.2 MG DAILY 07/22 1000 AC 07/22 PO 0808 Lisinopril 20 MG DAILY 07/22 1000 AC PO Metoprolol Tartrate 12.5 MG BID 07/21 2200 AC 07/22 PO 0044 Metoprolol Tartrate 0 .STK-MED ONE 07/21 1503 DC PO Metoprolol Tartrate 12.5 MG ONCE ONE 07/21 1500 DC 07/21 PO 07/21 1501 1513 Oxycodone HCl 10 MG Q6P PRN 07/21 1700 AC PO Potassium Chloride 40 MEQ .STK-MED ONE 07/22 0038 DC PO 07/22 0039 Potassium Chloride 40 MEQ ONCE ONE 07/21 1945 DC 07/22 PO 07/21 194 0044 Potassium Chloride 0 .STK-MED ONE 07/21 194 DC PO Repaglinide 0.5 MG TIDAC 07/22 0800 AC 07/22 PO 0904 Vital Signs & I&O Last 24 Hrs of Vitals and I&O: Vital Signs Date Time Temp Pulse Resp B/P Pulse O2 O2 Flow FiO2 Ox Delivery Rate 07/22 0800 97.9 75 20 100/50 95 Nasal 3.0L Cannula 07/22 0613 69 98 07/22 0317 73 95 07/22 0044 80 120/60 07/22 0016 83 96 07/22 0000 Nasal 3.0L Cannula 07/21 2359 97.5 81 20 120/62 98 Nasal 3.0L Cannula 07/21 2202 93 Nasal 3.0L Cannula 07/21 2141 98.0 83 20 110/62 93 Nasal Cannula 07/21 2021 97.1 73 112/59 100 BIPAP 07/21 1945 74 99 07/21 1912 97.4 82 20 127/60 96 Nasal 4.0L Cannula 07/21 1743 97.3 80 16 133/71 93 Nasal 4.0L Cannula 07/21 1513 83 118/61 07/21 1500 93 Nasal 2.0L Cannula 07/21 1451 97.4 83 16 118/61 91 Nasal 2.0L Cannula 07/21 1149 97.9 83 22 131/74 96 Room Air Intake & Output 07/22 1600 07/22 0800 07/22 0000 Intake Total 120 260 Output Total 100 Balance 20 260 Intake, IV 10 Intake, Oral 120 250 Output, Urine 100 Patient 179 lb 179 lb Weight Impression/Plan Impression/Plan Impression/Plan: Physical Exam: Well-developed, well-nourished elderly male, less lethargic than yesterday Appeared short of breath Vital signs: See above. HEENT: Normocephalic, atraumatic, EOMI, moist mucous membranes. Neck: No JVD, no bruits. Lungs: Bibasilar crackles. Mild wheezing Heart: S1, S2 with no murmur, gallop, or rub appreciated. PMI fifth ICS at [facility]. Abdomen: Soft, nontender, positive bowel sounds. Extremities: Trace bilateral lower extremity edema. Neurological exam patient was mildly lethargic but easily arousable. SIGNIFICANT DATA Previous echocardiogram showed significant mild anterior wall hypokinesis and restrictive filling pattern with moderate pulmonary hypertension Chest x-ray done showed bilateral pleural effusion with persistent diffuse interstitial edema stable opacity with loculated fluid in the chest which is not changed from before He has chronically elevated creatinine bicarbonate is 38 anion gap was normal White count was low at 2.9 platelets are low at 116 is chronically anemic with hemoglobin of 9 with MCV of 75 is INR was 1.77 his previous immunoelectrophoresis showed chronic inflammatory process his anti-CCP was very high no monoclonal antibody seen in his electrophoresis His CT chest reviewed which showed congestive heart failure with loculated pleural effusion small pericardial effusion also. IMPRESSION This is a gentleman with history of rheumatoid arthritis on methotrexate hence immunosuppressed, Previous sig pericardial effusion prob related to RA s/p window with neg cytology and cultures for any malignancy and infections, Chronic loculated effusion both sides due to inflammatory path due to RA, significant diastolic heart disease with thickened pericardium with prob restrictive physiology, diabetes, coronary artery disease, now has the following issues * Acute on chronic hypercarbic respiratory failure due to probable obesity hypoventilation, persistent heart failure with central apnea. Did respond to BiPAP would benefit from daily BiPAP at bedtime. His thyroid function test is normal * Persistant pulmonary edema significant diastolic dysfunction consistent with restrictive hemodynamics. * He has had previous history of pericardial window and he has thickened pericardium this may be also causing constictive pericaridal path. THis is related to sig RA with sig serositis * On off aspiration in the past * Bilateral loculated pleural effusion in the fissure related to inflammatory process, and the pathology is prob the same as his the pathology which caused his pericardial effusion i.e. rheumatoid arthritis. His TB cultures have been negative in the past. There is no clear evidence suggestive of empyema or significant pulmonary malignancy, cytology neg from pericardial window * Prior granulomatous lung disease with mild emphysema * Sig microcytic anemia with prob anemia of chronic disease * Mild pancytopenia rule out myelodysplasia * Sig history of RHeumatoid and hence immunosuppressed * Chronic kidney disease stage II, with diabetes with mild proteinuria and hypertension REC Continue gentle diuresis, watch his creatinine. Keep his potassium more than 4 ABG, this p.m. prior to bedtime to see his baseline PCO2 again. Keep him off BiPAP if possible during the day if he is awake and responding appropriately. If not he would need to have BiPAP again this afternoon. At that time did not checked ABG this p.m. to assess his baseline PCO2 Hold Lasix today and give one dose of by mouth Diamox 250 once a day Cardiology consult Continue levothyroxine and check free T4 Eventually patient would need workup for pancytopenia Order QuantiFERON gold test, Willy 2 mutation analysis Patient seemed to have elevated INR probably related to hepatic congestion and he may have some component of chronic liver dysfunction, given by mouth vitamin K 5 mg for 3 days Lower extremity Doppler Anticoagulation for prevention of DVT, subcutaneous heparin Hold methotrexate Continue folic acid Start B12 1000 international units daily Fingerstick glucose and sliding scale Repeat his INR tomorrow Prognosis is guarded
[2016-07-22 10:27] VITALS: BP 100/56
[2016-07-22 10:45] VITALS: BP 120/52
--- NOTE | 2016-07-22 13:19 | Cons- Cardiology ---
General Information and HPI Consulting Request Date of Consult: 07/22/16 Requested By: VICTORINO OBRIEN MD Reason for Consult: Weakness and shortness of breath. Source of Information: patient, family, old records Exam Limitations: language barrier History of Present Illness: Mr. Chris Lomas is a 75-year-old male of [place] ([place]) descent with a history of right sided stroke at age 45 years complicated by subsequent GI ulceration secondary to aspirin therapy requiring endoscopic intervention, previously treated dyslipidemia, hypertension, hypothyroidism, gastroesophageal reflux disease, rheumatoid arthritis for which he is on methotrexate, prostate carcinoma for which he is s/p hormone and radiation therapy, previous hemolytic anemia, mild left ventricular dysfunction with EF 50 -55% and stage III diastolic dysfunction by echocardiogram (11/16/2015), and pericardial tamponade discovered while he was having a routine outpatient echocardiogram performed that ultimately led to admission (08/04-08/12/2015) and urgent pericardial window by CT surgery (Robbie Arevalo M.D.) who now presents with complaints of weakness and progressive shortness of breath with clinical and radiographic evidence of heart failure who was recently admitted to ([id number]/11/2016) for heart failure, recurrent aspiration, etc. for which further outpatient evaluation/management had been planned. At home and on nasal oxygen and Furosemide 40 mg dailyhe continued to feel poorly. The Furosemide was increased to 40 mg twice daily without significant improvement and, as such, he returned to the EDfor further evaluation and management. Allergies/Medications Allergies: Coded Allergies: aspirin (Mild, ULCER 10/13/15) Home Med List: Enalapril Maleate 20 MG TAB 1 TAB PO DAILY HTN (Reported) Folic Acid 1 MG TABLET 2 MG PO DAILY SUPPLEMENT (Reported) Furosemide (Lasix) 40 MG TABLET 1 TAB PO BID DIURETIC (Reported) Levothyroxine Sodium 0.2 MG TAB 1 TAB PO DAILY THYROID (Reported) Methotrexate 2.5 MG TABLET 5 MG PO QTHURS RHEUMATOID ARTHRITIS (Reported) Metoprolol Tartrate 25 MG TABLET 12.5 MG PO BID HEART HEALTH Repaglinide (Prandin) 0.5 MG TABLET 1 TAB PO TIDAC DIABETES Hold prandin if you skip a meal Review of Systems Review of Systems: a 14 point system review was obtained and was noncontributory, other than as above. Past History Travel History Traveled to [place] past 21 day No Medical History Blood Transfusion Hx: Yes Neurological: CVA at age of 45 due to hypertension Cardiovascular: NONE (pericardial disease, s/p windo), CHF (pericardial effusion ), hypertension, CARDIOMEGALY Gastrointestinal: upper GI bleed Musculoskeletal: rheumatoid arthritis Endocrine: diabetes, hypothyroidism Blood Disorders: anemia Cancer(s): prostate cancer Surgical History Surgical History: non-contributory Psychosocial History Who Do You Live With? spouse, child Services at Home: None Primary Language: Swazi Smoking Status: Former Smoker ETOH Use: denies use Illicit Drug Use: denies illicit drug use Functional Ability ADLs Independent: dressing, eating, toileting, bathing. Ambulation: independent Exam & Diagnostic Data Vital Signs and I&O Vital Signs Date Time Temp Pulse Resp B/P Pulse O2 O2 Flow FiO2 Ox Delivery Rate 07/22 1208 80 105/56 07/22 1208 80 105/56 07/22 1045 98.3 87 20 120/52 95 Nasal 1.0L Cannula 07/22 1027 85 100/56 07/22 0800 95 Nasal 3.0L Cannula 07/22 0800 97.9 75 20 100/50 95 Nasal 3.0L Cannula 07/22 0613 69 98 07/22 0317 73 95 07/22 0044 80 120/60 07/22 0016 83 96 07/22 0000 Nasal 3.0L Cannula 07/21 2359 97.5 81 20 120/62 98 Nasal 3.0L Cannula 07/21 2202 93 Nasal 3.0L Cannula 07/21 2141 98.0 83 20 110/62 93 Nasal Cannula 07/21 2020 97.1 73 112/59 100 BIPAP 07/21 1945 74 99 07/21 1912 97.4 82 20 127/60 96 Nasal 4.0L Cannula 07/21 1743 97.3 80 16 133/71 93 Nasal 4.0L Cannula 07/21 1513 83 118/61 07/21 1500 93 Nasal 2.0L Cannula 07/21 1451 97.4 83 16 118/61 91 Nasal 2.0L Cannula Intake & Output 07/22 1600 07/22 0800 07/22 0000 07/21 1600 07/21 0800 07/21 0000 Intake Total 200 120 260 0 Output Total 50 100 Balance 150 20 260 0 Intake, IV 10 Intake, Oral 200 120 250 0 Number 1 Bowel Movements Output, Stool 50 Output, Urine 100 Patient 179 lb 179 lb 179 lb Weight Physical Exam: well-developed, overweight elderly male in no acute distress with nasal oxygen in place. Vital signs: See above. HEENT: Normocephalic, atraumatic, EOMI, moist mucous membranes. Neck: No JVD, no bruits. Lungs:Decreased breath sounds, crackles at the bases, expiratory wheeze. Heart: S1, S2 with no murmur, gallop, or rub appreciated. PMI fifth ICS at [facility]. Abdomen: Soft, nontender, positive bowel sounds. Extremities: No edema. Labs/Thomas Results: Laboratory Tests 07/22 07/22 07/22 1200 0620 0035 Chemistry Sodium (137 - 145 mmol/L) 143 Potassium (3.5 - 5.1 mmol/L) 4.2 Chloride (98 - 107 mmol/L) 98 Carbon Dioxide (22 - 30 mmol/L) 38 H Anion Gap (5 - 16) 7 BUN (9 - 20 mg/dL) 41 H Creatinine (0.7 - 1.2 mg/dL) 1.5 H Estimated GFR (>60 ml/min) 45 L BUN/Creatinine Ratio (7 - 25 %) 27.3 H Lactate Dehydrogenase Pending Troponin I (<0.11 ng/ml) 0.16 *H 0.14 *H TSH (0.270 - 4.200 uIU/mL) 1.150 Free T4 (0.78 - 2.44 ng/dL) 1.92 Coagulation PT (9.4 - 12.5 SEC) 18.8 H INR (0.90 - 1.17) 1.80 H Fibrinogen Activity Pending Hematology CBC w Diff MAN DIFF ORDERED WBC (4.8 - 10.8 /CUMM) 2.7 L RBC (4.70 - 6.10 /CUMM) 3.22 L Hgb (14.0 - 18.0 G/DL) 7.8 L Hct (42 - 52 %) 24.4 L MCV (80.0 - 94.0 FL) 76.0 L MCH (27.0 - 31.0 PG) 24.3 L RDW (11.5 - 14.5 %) 22.4 H Plt Count (130 - 400 /CUMM) 117 L MPV (7.4 - 10.4 FL) 6.8 L Gran % (42.2 - 75.2 %) 35.8 L Lymphocytes % (20.5 - 51.1 %) 38.6 Monocytes % (1.7 - 9.3 %) 24.7 H Eosinophils % (0 - 5 %) 0.3 Basophils % (0.0 - 2.0 %) 0.6 Absolute Granulocytes (1.4 - 6.5 /CUMM) 1.0 L Segmented Neutrophils (42.2 - 75.2 %) 33 L Band Neutrophils (0.0 - 5.0 %) 8 H Absolute Lymphocytes (1.2 - 3.4 /CUMM) 1.0 L Lymphocytes (20.5 - 51.1 %) 34 Monocytes (1.7 - 9.3 %) 25 H Absolute Monocytes (0.10 - 0.60 /CUMM) 0.7 H Absolute Eosinophils (0.0 - 0.7 /CUMM) 0 Absolute Basophils (0.0 - 0.2 /CUMM) 0 Nucleated RBCs (0.0 - 0.0 /100WBC) 1 H Platelet Estimate (ADEQUATE) DECREASED Polychromasia 1+ Hypochromic-Microcytic 1+ Poikilocytosis 1+ Anisocytosis 2+ Microcytic Cells 1+ PUBS MCHC (33.0 - 37.0 G/DL) 32.0 L Retic Count Pending 07/21 07/21 07/21 1900 1613 1409 Blood Gas pH (7.35 - 7.45 PH) 7.27 *L pCO2 (35 - 45 TORR) 78 *H pO2 (80 - 100 TORR) 57 L HCO3 (21 - 28 MEQ/L) 35 H ABG O2 Sat (Measured) (>96.0 %) 87.0 L Carboxyhemoglobin (1.5 - 5.0 %) 1.5 O2 Concentration % 4L O2 Delivery Method NC Chemistry Lactic Acid (0.7 - 2.1 mmol/L) 1.2 Miscellaneous Phlebotomy Draw Site RIGHT RADIAL Urines Urine Color (YEL,AMB,STR) YEL Urine Clarity (CLEAR) CLEAR Urine pH (5.0 - 8.0) 6.0 Ur Specific Kiester (1.001 - 1.035) 1.025 Urine Protein (NEG,<30 MG/DL) 30 H Urine Ketones (NEG) NEG Urine Nitrite (NEG) NEG Urine Bilirubin (NEG) NEG Urine Urobilinogen (0.1 - 1.0 EU/dl) 2.0 H Ur Leukocyte Esterase (NEG) NEG Ur Microscopic SEDIMENT EXAMINED Urine RBC (0 - 5 /HPF) 3-5 Urine WBC (0 - 2 /HPF) 1-3 H Ur Epithelial Cells (NONE,FEW) MANY H Hyaline Casts (0/LPF) MANY H Granular Casts (NONE /LPF) FEW H Urine Hemoglobin (NEG) TRACE-LYSED H Urine Glucose (N MG/DL) NEG 07/21 07/21 1409 1408 Chemistry Sodium (137 - 145 mmol/L) 140 Potassium (3.5 - 5.1 mmol/L) 3.8 Chloride (98 - 107 mmol/L) 95 L Carbon Dioxide (22 - 30 mmol/L) 38 H Anion Gap (5 - 16) 7 BUN (9 - 20 mg/dL) 34 H Creatinine (0.7 - 1.2 mg/dL) 1.2 Estimated GFR (>60 ml/min) 59 L BUN/Creatinine Ratio (7 - 25 %) 28.3 H Glucose (65 - 99 mg/dL) 162 H Calcium (8.4 - 10.2 mg/dL) 8.4 Total Bilirubin (0.2 - 1.3 mg/dL) 1.6 H AST (17 - 59 U/L) 34 ALT (21 - 72 U/L) 20 L Alkaline Phosphatase (< 127 U/L) 142 H Troponin I (<0.11 ng/ml) 0.10 [id number] Pept (<125 pg/mL) 8040 H Total Protein (6.3 - 8.2 g/dL) 9.2 H Albumin (3.5 - 5.0 g/dL) 3.1 L Globulin (1.9 - 4.2 gm/dL) 6.1 H Albumin/Globulin Ratio (1.1 - 2.2 %) 0.5 L Coagulation PT (9.4 - 12.5 SEC) 18.5 H INR (0.90 - 1.17) 1.77 H APTT (25 - 37 SEC) 37 Cancelled Hematology CBC w Diff MAN DIFF ORDERED WBC (4.8 - 10.8 /CUMM) 2.9 L RBC (4.70 - 6.10 /CUMM) 3.81 L Hgb (14.0 - 18.0 G/DL) 9.0 L Hct (42 - 52 %) 28.8 L MCV (80.0 - 94.0 FL) 75.6 L MCH (27.0 - 31.0 PG) 23.6 L RDW (11.5 - 14.5 %) 22.0 H Plt Count (130 - 400 /CUMM) 116 L MPV (7.4 - 10.4 FL) 7.0 L Segmented Neutrophils (42.2 - 75.2 %) 62 Band Neutrophils (0.0 - 5.0 %) 4 Lymphocytes (20.5 - 51.1 %) 17 L Monocytes (1.7 - 9.3 %) 15 H Eosinophils (0 - 5.0 %) 1 Metamyelocytes (0.0 - 1.0 %) 1 Platelet Estimate (ADEQUATE) VERIFIED BY SMEAR Hypochromic-Microcytic 1+ Anisocytosis 1+ PUBS MCHC (33.0 - 37.0 G/DL) 31.3 L Diagnostic Data EKG Results (07/22/2016) sinus rhythm, first-degree AV block, incomplete LBBB, anterior Q waves secondary to incomplete LBBB versus old ASMI. CXR Results (07/21/2016 Persistent small bilateral pleural effusions with increased fluid tracking along the right lateral chest wall. Persistent diffuse interstitial markings most suggestive of edema. Stable opacity overlying the right mid to upper lung suggestive of loculated fluid as seen on prior CT. Other Results Echocardiogram (07/01/2017) Normal left ventricular size, wall thickness and systolic function with mild anterior wall hypokinesis. Diastolic filling pattern is consistent with restrictive hemodynamics. The ejection fraction is visually estimated at 55%. The right ventricle is normal in size and function. The right atrium is mildly enlarged. The left atrium is moderately enlarged. The interatrial septum is intact. The mitral valve is normal in structure and function. There is no mitral regurgitation. Structurally normal aortic valve without significant sclerosis or stenosis. There is no aortic regurgitation. The tricuspid valve is normal in structure and function. There is trace tricuspid regurgitation. Pulmonary artery systolic pressure is mildly increased to 38mmHg. Structurally normal pulmonic valve. There is no pulmonic regurgitation. Normal pericardium without effusion. No pleural effusion. Normal aortic root dimension. The aortic arch and great vessels are well seen and are normal. Assessment/Plan Assessment/Plan Mr. Lomas is an elderly male recently diagnosed with diabetes mellitus and placed on insulin therapy who again presents with progressive shortness of breath, orthopnea, and cough with clinical and radiographic evidence of heart failure. He was also complaining of weakness and was found to be significantly anemic. The etiology for his heart failure is presently unclear, but although he had normal left ventricular wall thickness observed on his most recent echocardiogram, he also had evidence of stage III diastolic dysfunction. He also has a recently diagnosed risk equivalent and has multiple risk factors for coronary artery disease which may be responsible for his presentation secondary to ischemia. The plan was for outpatient follow-up that was to include an imaging stress test , but we were hoping that he would clinically improve not only from the heart failure, but also the persistent aspiration that was occurring during his last hospitalization. If there was evidence of ischemia on stress testing we planned to have him undergo combined right and left heart cardiac catheterization. If there was no evidence of ischemia we planned to pursue a cardiac MRI to better assess the pericardium and possibly proceed with cardiac catheterizationto exclude restrictive physiology. Suspect that the modest elevation in his Troponin Iis on the basis of demand ischemia, heart failure, etc., and not an acute coronary syndrome. Recommendations: * Telemetry admission, follow-up electrocardiogram, follow up troponins. * Continue IV furosemide 40 mg daily and reassess the need for further IV diuresis in the morning after clinical evaluation. * Follow-up CXR in a.m. following diuresis. * Replete potassium and aim to maintain at between 4.0-4.5 mEq per liter. * Replete magnesium and aim to maintain at or above 2.0 mEq per liter. * Hold oral diuretic therapy for the short-term. * Continue on Diovan (valsartan). * Check free T4, TSH, glycosylated hemoglobin A 1C,. * Evaluate anemia. * Note elevated total protein and abnormal albumin/globulin ratio. Consider protein electrophoresis, etc. * Check PSA. Consult Acknowledgment - Thank you for your consult request.
--- NOTE | 2016-07-22 16:38 | NUR ---
PER DR. WILLS PATIENT WAS ST CATHED @ 1415 & ONLY 25 CC WAS OBTAINED. AWARE THAT PT'S OUTPUT WAS @ 100CC FOR THE 7A-3P SHIFT. DR. MAI AWARE WELL.
--- NOTE | 2016-07-22 17:01 | ULTRASOUND REPORT ---
EXAMINATION: US TRIPLEX LOWER EXTREMITY, BILATERAL CLINICAL INFORMATION: Shortness of breath and bilateral lower extremity edema. COMPARISON: None. TECHNIQUE: Color-flow triplex imaging with spectral analysis and compression Doppler were performed on the bilateral lower extremities. FINDINGS: Respiratory variation, normal compression and augmented flow are noted throughout the bilateral lower extremities. The visualized common femoral vein, proximal greater saphenous vein, femoral vein, profunda femoral vein, popliteal vein and visualized mid calf venous segments show no evidence of deep venous thrombosis. There is no Glass's cyst. IMPRESSION: Normal triplex scan without evidence of deep venous thrombosis involving the bilateral lower extremities.
[2016-07-22 18:21] VITALS: BP 110/60
--- NOTE | 2016-07-22 22:44 | PN- Att Addend ---
Attending Addendum Attending Brief Note The patient continues to require IV lasix and will need further cardiac evaluation including probable cardiac catheterization as per Dr. Chapman. Will convert from Observation status to Full Admission.
[2016-07-22 23:01] VITALS: BP 118/70
[2016-07-23 07:30] VITALS: BP 120/70
--- NOTE | 2016-07-23 07:48 | PN- Housestaff ---
ERROL TELLES,[facility] 07/23/16 0747: Subjective Follow-up For: Weakness B/L LE edema Diastolic CHF Hypoxia and preexistant loculated pleural effusion Resistant pulmonary edema Tele-Events Since Last Visit: Sinus rhythm heart rate between 77-93, no acute overnight events Subjective: She seen and examined this morning. He reports that he was not able to sleep secondary to BiPAP. Otherwise he denies any chest pain, palpitation, dizziness. No other complaints. Review of Systems Constitutional: Reports: see HPI. Objective Last 24 Hrs of Vital Signs/I&O Vital Signs Date Time Temp Pulse Resp B/P Pulse O2 O2 Flow FiO2 Ox Delivery Rate 07/23 0911 97.5 81 20 120/70 07/23 0910 97.5 81 20 120/70 07/23 0800 95 Nasal 2.0L Cannula 07/23 0730 97.5 81 20 120/70 95 Nasal 2.0L Cannula 07/23 0007 85 98 07/23 0000 BIPAP 07/22 2301 97.6 82 20 118/70 93 Nasal Cannula 07/22 2024 84 110/54 07/22 1821 97.7 82 20 110/60 95 07/22 1600 96 Nasal 3.0L Cannula Intake & Output 07/23 1600 07/23 0800 07/23 0000 Intake Total 50 260 Output Total 600 150 Balance -550 110 Intake, IV 10 Intake, Oral 50 250 Output, Urine 600 150 Patient 81.193 kg Weight Physical Exam General Appearance: Alert, Cooperative, No Acute Distress Cardiovascular: Regular Rate, Normal S1, Normal S2 Lungs: bilateral decreased breath sounds Abdomen: Normal Bowel Sounds, Soft, No Tenderness Extremities: 1+ pitting edema bilaterally Current Medications: Current Medications Sig/Lenny Start time Last Medication Dose Route Stop Time Status Admin Acetaminophen 650 MG Q6P PRN 07/21 1700 AC PO Acetaminophen/ 1 TAB Q6P PRN 07/21 1700 AC Hydrocodone Bitart PO Acetazolamide 250 MG DAILY 07/22 1145 AC 07/23 PO 0910 Cyanocobalamin 1,000 MCG DAILY 07/21 1932 AC 07/23 PO 0910 Folic Acid 2 MG DAILY 07/22 1000 AC 07/23 PO 0910 Furosemide 20 MG BID 07/21 2200 AC 07/23 IV 0914 Heparin Sodium 5,000 UNIT Q8 07/22 1400 AC 07/23 (Porcine) SC 0611 Levothyroxine Sodium 0.2 MG DAILY 07/22 1000 AC 07/23 PO 0758 Lisinopril 20 MG DAILY 07/22 1000 AC 07/23 PO 0910 Metoprolol Tartrate 12.5 MG BID 07/22 2200 AC 07/23 PO 0911 Metoprolol Tartrate 12.5 MG BID 07/21 2200 DC 07/22 PO 1208 Omeprazole 20 MG DAILY AC 07/22 1130 AC 07/23 PO 0611 Oxycodone HCl 10 MG Q6P PRN 07/21 1700 AC PO Phytonadione 5 MG DAILY 07/22 1145 AC 07/23 PO 07/24 2199 0910 Prednisone 20 MG DAILY 07/22 1500 AC 07/23 PO 0911 Repaglinide 0.5 MG TIDAC 07/22 0800 AC 07/23 PO 0758 Last 24 Hrs of Lab/Thomas Results Last 24 Hrs of Labs/Mics: Laboratory Tests 07/23/16 0615: Hemoglobin A1c Pending 07/23/16 0615: Anion Gap 11, Estimated GFR 37 L, BUN/Creatinine Ratio 27.8 H, Magnesium 1.8, PT 16.5 H, INR 1.58 H, CBC w Diff NO MAN DIFF REQ, RBC 3.46 L, MCV 75.0 L, MCH 23.9 L, RDW 22.2 H, MPV 7.1 L, Gran % 54.8, Lymphocytes % 33.9, Monocytes % 10.2 H, Eosinophils % 0.2, Basophils % 0.9, Absolute Granulocytes 1.0 L, Absolute Lymphocytes 0.6 L, Absolute Monocytes 0.2, Absolute Eosinophils 0, Absolute Basophils 0, PUBS MCHC 31.9 L 07/22/16 1920: pH 7.36, pCO2 57 H, pO2 87, HCO3 32 H, ABG O2 Sat (Measured) 95.0 L, P-50 ( Temp Corrected) N, Carboxyhemoglobin 0.9 L, O2 Concentration % 2L, Temperature 97.7, O2 Delivery Method NC, Phlebotomy Draw Site RIGHT RADIAL 07/22/16 1425: Troponin I 0.12 *H Assessment/Plan Assessment: Mr. Lomas is a 75 y/o M with chief complain of weakness for two days. He has PMHx of grade 3 diastolic dysfunction, prostate cancer s/p hormone and radiation therapy, rheumatoid arthritis, hypothyroidism, R-sided CVA, cardiac tamponade s/ p pericardial window, HLD, HTN and T2DM on prandin 0.5 mg before meals, no insulin per Dr. Hutchison, bilateral loculated pleural effusion, emphysema, baseline hypercarbia, abnormal swallowing test, Hx of elevated globulin gap with exclusion to multiple myeloma. Problem list -CHF exacerbation -HTN and HLP -DM type 2 -Rheumatoid arthritis on methotrexate -Leukopenia, thrombocytopenia -Chronic anemia -Hypothyroidism -Elevated globulin gap Plan CHF exacerbation -patient has history of CHFbEF -weakness mostly related to hypoxia given diffuse crackles and abnormal ABG -Lasix 40 mg BID -TRC TID and PRN -Aspiration precaution -Pulmonary consultation obtained followed recommendations -ABG yesterday 7.36// Elevated troponin Troponin went up from 0.1 to 0.14 and 0.16 which came down to 0.12 yesterday, no EKG changes, no chest pain reported by the patient. cardiology on board, suggested ECHO, please follow report, also follow up with cardiology regarding final decision for a stress test HTN and HLP -continue home medication as blood pressure allows -Enalapril 20 mg daily, metoprolol tartrate 12.5 mg BID DM type 2 -prandin 0.5 mg before meals, no insulin per Dr. Hutchison -Patient is very sensitive to insulin -HGA1c will follow-up. Rheumatoid arthritis on methotrexate -Hold methotrexate -started on prednisone 20 mg daily Leukopenia, thrombocytopenia -Patient is on methotrexate for RA -consult obtained with Dr. Nevarez, please follow the labs ordered based on his recommendations (to rule out hemolysis) Chronic anemia -Continue Folic acid and Vit B 12 -Start ferrous 325 mg daily Hypothyroidism -Continue synthroid 0.2 MG daily -Checked TSH and T4:WNL Elevated globulin gap -Recent 07/19 Protein electrophoresis showed 17% albumin, alpha 1 globulin 2%, alpha 2 globulin 7%, beta globulin 27% , gammaglobulin 47% Consistent Carbohydrate 3 chopped and thick nectar DVT PPx ALPs Code Full Problem List: 1. Hypoxia 2. Acute diastolic CHF (congestive heart failure) Pain Ratin Pain Location: None Pain Goal: Remain pain free Pain Plan: Tylenol Tomorrow's Labs & Rationales: CBC (anemia, pancytopenia), BEP (elevated Cr) LAMAR TELLES,RUTHANN 07/23/16 1337: Attending MD Review Statement Attending Statement Attending MD Statement: examined this patient, discuss w/resident/PA/CLINIC LPN, agreed w/resident/PA/CLINIC LPN, discussed with family, reviewed EMR data (avail), discussed with nursing, discussed with case mgmt, reviewed images, amended to note Attending Assessment/Plan: Patient seen and examined. Sitting comfortably in bed. Has language barrier. Denies any complaint. Problem list 1. Congestive heart failure 2. Chronic anemia 3. Worsening renal function 4. History of diabetes Recommendations 1. Monitor renal function closely. If the renal function keeps on deteriorating may have to hold Lasix and Lisinopril and call renal consult. 2. Follow-up Dr Nevarez's ligia mmendations. Check guaiac stool 3. As per Dr. Osei patient will need an outpatient cardiology workup.
[2016-07-23 08:26] LABS: ABSOLUTE BASOPHIL COUNT 0 /CUMM (0.0-0.2); ABSOLUTE EOSINOPHIL COUNT 0 /CUMM (0.0-0.7); ABSOLUTE LYMPH COUNT 0.6 /CUMM (1.2-3.4); ABSOLUTE MONOCYTE COUNT 0.2 /CUMM (0.10-0.60); BASOPHIL % 0.9 % (0.0-2.0); EOSINOPHIL % 0.2 % (0-5); MEAN CORPUSCULAR HGB 23.9 PG (27.0-31.0); MEAN CORPUSCULAR HGB CONC 31.9 G/DL (33.0-37.0); MEAN PLATELET VOLUME 7.1 FL (7.4-10.4); RBC DISTRIBUTION WIDTH 22.2 % (11.5-14.5); RED BLOOD CELL CT 3.46 /CUMM (4.70-6.10); WHITE BLOOD CELL COUNT 1.8 /CUMM (4.8-10.8)
[2016-07-23 08:33] LABS: PT 16.5 SEC (9.4-12.5)
--- NOTE | 2016-07-23 08:46 | PN- Pulmonary ---
Subjective HPI/Critical Care Issues: She is awake alert comfortable on 2 L nasal oxygen Objective Current Medications: Current Medications Sig/Lenny Start time Last Medication Dose Route Stop Time Status Admin Acetaminophen 650 MG Q6P PRN 07/21 1700 AC PO Acetaminophen/ 1 TAB Q6P PRN 07/21 1700 AC Hydrocodone Bitart PO Acetazolamide 250 MG DAILY 07/22 1145 AC 07/22 PO 1526 Cyanocobalamin 1,000 MCG DAILY 07/21 1932 AC 07/22 PO 1016 Folic Acid 2 MG DAILY 07/22 1000 AC 07/22 PO 1016 Furosemide 20 MG BID 07/21 2200 AC 07/22 IV 2024 Heparin Sodium 5,000 UNIT Q8 07/22 1400 AC 07/23 (Porcine) SC 0611 Levothyroxine Sodium 0.2 MG DAILY 07/22 1000 AC 07/23 PO 0758 Lisinopril 20 MG DAILY 07/22 1000 AC 07/22 PO 1208 Metoprolol Tartrate 12.5 MG BID 07/22 2200 AC 07/22 PO 202 Metoprolol Tartrate 12.5 MG BID 07/21 2200 DC 07/22 PO 1208 Omeprazole 20 MG DAILY AC 07/22 1130 AC 07/23 PO 0611 Oxycodone HCl 10 MG Q6P PRN 07/21 1700 AC PO Phytonadione 5 MG DAILY 07/22 1145 AC 07/22 PO 07/24 2199 1526 Prednisone 20 MG DAILY 07/22 1500 AC 07/22 PO 2023 Repaglinide 0.5 MG TIDAC 07/22 0800 AC 07/23 PO 0758 Vital Signs & I&O Last 24 Hrs of Vitals and I&O: Vital Signs Date Time Temp Pulse Resp B/P Pulse O2 O2 Flow FiO2 Ox Delivery Rate 07/23 0730 97.5 81 20 120/70 95 Nasal 2.0L Cannula 07/23 0007 85 98 07/23 0000 BIPAP 07/22 2301 97.6 82 20 118/70 93 Nasal Cannula 07/22 2023 84 110/54 07/22 1821 97.7 82 20 110/60 95 07/22 1600 96 Nasal 3.0L Cannula 07/22 1208 80 105/56 07/22 1208 80 105/56 07/22 1045 98.3 87 20 120/52 95 Nasal 1.0L Cannula 07/22 1027 85 100/56 Intake & Output 07/23 1600 07/23 0800 07/23 0000 Intake Total 50 260 Output Total 600 150 Balance -550 110 Intake, IV 10 Intake, Oral 50 250 Output, Urine 600 150 Patient 179 lb Weight Oxygen saturation on 2 L 95% exam of his chest shows diminished breath sounds at the bases cardiac exam shows regular S1 and S2 without murmurs Impression/Plan Impression/Plan Impression/Plan: 5-year-old gentleman with congestive heart failure improved hypercapnic respiratory failure. He is developed worsening anemia Recommendations: Continue when necessary BiPAP maintain potassium at 4 to avoid further metabolic alkalosis. Evaluate acute anemia follow-up previous recommendations
[2016-07-23 11:04] LABS: GRANULOCYTE % 54.8 % (42.2-75.2)
[2016-07-23 11:05] LABS: PLATELET COUNT 97 /CUMM (130-400)
--- NOTE | 2016-07-23 11:56 | PN- Cardiology ---
Subjective Subjective: The patient is lying in bed comfortably. He still appears minimally short of breath. He speaks no Cypriot. Some information obtained with assistance of bedside trimming press operator. The patient claims to be feeling somewhat better than yesterday. Known other new symptoms or issues. Objective Vital Signs and I&Os Vital Signs Date Time Temp Pulse Resp B/P Pulse O2 O2 Flow FiO2 Ox Delivery Rate 07/23 0911 97.5 81 20 120/70 07/23 0910 97.5 81 20 120/70 07/23 0800 95 Nasal 2.0L Cannula 07/23 0730 97.5 81 20 120/70 95 Nasal 2.0L Cannula 07/23 0007 85 98 07/23 0000 BIPAP 07/22 2301 97.6 82 20 118/70 93 Nasal Cannula 07/22 2023 84 110/54 07/22 1821 97.7 82 20 110/60 95 07/22 1600 96 Nasal 3.0L Cannula 07/22 1208 80 105/56 07/22 1208 80 105/56 Intake & Output 07/23 1600 07/23 0800 07/23 0000 07/22 1600 07/22 0800 07/22 0000 Intake Total 50 260 200 120 260 Output Total 600 150 50 100 Balance -550 110 150 20 260 Intake, IV 10 10 Intake, Oral 50 250 200 120 250 Number 1 Bowel Movements Output, Stool 50 Output, Urine 600 150 100 Patient 179 lb 179 lb 179 lb Weight Physical Exam: Gen.: Well-developed, well-nourished, white male, non-Cypriot speaking, no obvious acute distress. HEENT: Normal Neck: JVP normal, carotid upstrokes 2+ bilaterally with no bruits, no masses, no thyromegaly. Chest: Decreased breath sounds bilaterally with bilateral rhonchi and wheezing. Heart: Regular S1, S2. No audible murmurs. Abdomen: Normal, bowel sounds positive, nontender Extremities,again cyanosis, clubbing, or edema. Current Medications: Current Medications Sig/Lenny Start time Last Medication Dose Route Stop Time Status Admin Acetaminophen 650 MG Q6P PRN 07/21 1700 AC PO Acetaminophen/ 1 TAB Q6P PRN 07/21 1700 AC Hydrocodone Bitart PO Acetazolamide 250 MG DAILY 07/22 1145 AC 07/23 PO 0910 Cyanocobalamin 1,000 MCG DAILY 07/21 1932 AC 07/23 PO 0910 Folic Acid 2 MG DAILY 07/22 1000 AC 07/23 PO 0910 Furosemide 20 MG BID 07/21 2200 AC 07/23 IV 0914 Heparin Sodium 5,000 UNIT Q8 07/22 1400 AC 07/23 (Porcine) SC 0611 Levothyroxine Sodium 0.2 MG DAILY 07/22 1000 AC 07/23 PO 0758 Lisinopril 20 MG DAILY 07/22 1000 AC 07/23 PO 0910 Metoprolol Tartrate 12.5 MG BID 07/22 2200 AC 07/23 PO 0911 Metoprolol Tartrate 12.5 MG BID 07/21 2200 DC 07/22 PO 1208 Omeprazole 20 MG DAILY AC 07/22 1130 AC 07/23 PO 0611 Oxycodone HCl 10 MG Q6P PRN 07/21 1700 AC PO Phytonadione 5 MG DAILY 07/22 1145 AC 07/23 PO 07/24 2200 0910 Prednisone 20 MG DAILY 07/22 1500 AC 07/23 PO 0911 Repaglinide 0.5 MG TIDAC 07/22 0800 AC 07/23 PO 0758 Results Last 48 Hrs of Labs/Mics: Laboratory Tests 07/23/16 0615: Hemoglobin A1c Pending 07/23/16 0615: Anion Gap 11, Estimated GFR 37 L, BUN/Creatinine Ratio 27.8 H, Magnesium 1.8, PT 16.5 H, INR 1.58 H, CBC w Diff NO MAN DIFF REQ, RBC 3.46 L, MCV 75.0 L, MCH 23.9 L, RDW 22.2 H, MPV 7.1 L, Gran % 54.8, Lymphocytes % 33.9, Monocytes % 10.2 H, Eosinophils % 0.2, Basophils % 0.9, Absolute Granulocytes 1.0 L, Absolute Lymphocytes 0.6 L, Absolute Monocytes 0.2, Absolute Eosinophils 0, Absolute Basophils 0, PUBS MCHC 31.9 L 07/22/16 1920: pH 7.36, pCO2 57 H, pO2 87, HCO3 32 H, ABG O2 Sat (Measured) 95.0 L, P-50 ( Temp Corrected) N, Carboxyhemoglobin 0.9 L, O2 Concentration % 2L, Temperature 97.7, O2 Delivery Method NC, Phlebotomy Draw Site RIGHT RADIAL 07/22/16 1425: Troponin I 0.12 *H 07/22/16 1200: Lactate Dehydrogenase 338, Fibrinogen Activity 305, Retic Count 2.30 H 07/22/16 0620: Anion Gap 7, Estimated GFR 45 L, BUN/Creatinine Ratio 27.3 H, Troponin I 0.16 *H, TSH 1.150, Free T4 1.92, PT 18.8 H, INR 1.80 H, CBC w Diff MAN DIFF ORDERED, RBC 3.22 L, MCV 76.0 L, MCH 24.3 L, RDW 22.4 H, MPV 6.8 L, Gran % 35.8 L, Lymphocytes % 38.6, Monocytes % 24.7 H, Eosinophils % 0.3, Basophils % 0.6, Absolute Granulocytes 1.0 L, Segmented Neutrophils 33 L, Band Neutrophils 8 H, Absolute Lymphocytes 1.0 L, Lymphocytes 34, Monocytes 25 H, Absolute Monocytes 0.7 H, Absolute Eosinophils 0, Absolute Basophils 0, Nucleated RBCs 1 H, Platelet Estimate DECREASED, Polychromasia 1+, Hypochromic-Microcytic 1+, Poikilocytosis 1+, Anisocytosis 2+, Microcytic Cells 1+, PUBS MCHC 32.0 L 07/22/16 0035: Troponin I 0.14 *H 07/21/16 1900: pH 7.27 *L, pCO2 78 *H, pO2 57 L, HCO3 35 H, ABG O2 Sat (Measured) 87.0 L, Carboxyhemoglobin 1.5, O2 Concentration % 4L, O2 Delivery Method NC, Phlebotomy Draw Site RIGHT RADIAL 07/21/16 1708: Lactic Acid Cancelled 07/21/16 1613: Urine Color YEL, Urine Clarity CLEAR, Urine pH 6.0, Ur Specific [place] 1.025, Urine Protein 30 H, Urine Ketones NEG, Urine Nitrite NEG, Urine Bilirubin NEG, Urine Urobilinogen 2.0 H, Ur Leukocyte Esterase NEG, Ur Microscopic SEDIMENT EXAMINED, Urine RBC 3-5, Urine WBC 1-3 H, Ur Epithelial Cells MANY H, Hyaline Casts MANY H, Granular Casts FEW H, Urine Hemoglobin TRACE-LYSED H, Urine Glucose NEG 07/21/16 1409: Lactic Acid 1.2 07/21/16 1409: Anion Gap 7, Estimated GFR 59 L, BUN/Creatinine Ratio 28.3 H, Glucose 162 H, Calcium 8.4, Total Bilirubin 1.6 H, AST 34, ALT 20 L, Alkaline Phosphatase 142 H, Troponin I 0.10, Hjb-[id number]-[id number] Pept 8040 H, Total Protein 9.2 H, Albumin 3.1 L, Globulin 6.1 H, Albumin/Globulin Ratio 0.5 L, PT 18.5 H, INR 1.77 H, APTT 37, CBC w Diff MAN DIFF ORDERED, RBC 3.81 L, MCV 75.6 L, MCH 23.6 L, RDW 22.0 H, MPV 7.0 L, Segmented Neutrophils 62, Band Neutrophils 4, Lymphocytes 17 L, Monocytes 15 H, Eosinophils 1, Metamyelocytes 1, Platelet Estimate VERIFIED BY SMEAR, Hypochromic-Microcytic 1+, Anisocytosis 1+, PUBS MCHC 31.3 L 07/21/16 1408: APTT Cancelled Assessment/Plan Assessment/Plan Assessment: 1. Increasing shortness of breath with history of congestive heart failure ( HFpEF) 2. History of pericardial effusion/An odd, status post pericardial window 3. Microcytic anemia 4. Worsening acute renal insufficiency-creatinine increased to 1.8 today after minimal diuresis 5. Diabetes recommendations: -Continue current management for now. -Continue to closely monitor her intakes, outputs, and daily weights. -Follow-up creatinine/BUN -If the renal function continues to deteriorate, consider nephrology input -As per Dr. Chapman, further outpatient evaluation may include right and left heart cardiac catheterization to rule out ischemia, pericardial disease, etc. -Anemia workup pending. Continue telemetry? Yes
--- NOTE | 2016-07-23 12:01 | ULTRASOUND REPORT ---
EXAMINATION: US RETROPERITONEAL COMPLETE (RENAL) CLINICAL INFORMATION: Decrease urine output. Evaluate for obstruction. COMPARISON: Renal ultrasound dated 08/07/2015. TECHNIQUE: Real-time imaging of the kidneys and bladder. FINDINGS: RIGHT KIDNEY: 10.3 x 5.0 x 5.3 cm (SAG x AP x TRV). The kidney is normal in size, contour, and echogenicity. Renal cortical thickness is normal. There is a 0.9 x 0.7 x 0.9 cm diameter simple parapelvic cyst in the mid right kidney, not appreciated on prior Limited renal ultrasound. No calculi or suspicious focal parenchymal lesions. No hydronephrosis. LEFT KIDNEY: 9.7 x 4.8 x 3.8 cm (SAG x AP x TRV). The kidney is normal in size, contour, and echogenicity, though the lower pole of the left kidney is suboptimally assessed due to overlying bowel gas. Renal cortical thickness is normal. No calculi or focal parenchymal lesions. No hydronephrosis. BLADDER: Well-distended and normal. Bilateral ureteral jets are demonstrated. Prevoid bladder volume is 164 mL. IMPRESSION: 1. No evidence of hydronephrosis. 2. Small parapelvic mid right renal cyst. 3. Otherwise unremarkable study.
--- NOTE | 2016-07-23 13:00 | NUR ---
PATIENT FINGERSTICK AT LUNCH WAS 280. RESULT HIGHER THAN USUAL. GRADE RECORDER AWARE. WILL MONITOR FOR NOW. PATIENT ON PREDNISONE. WILL FOLLOW PLAN OF CARE.
--- NOTE | 2016-07-23 14:49 | PN- Oncology ---
Subjective Subjective: Denies any new changes. Not reporting any pain or discomfort. Objective Vital Signs and I&Os Vital Signs Date Time Temp Pulse Resp B/P Pulse O2 O2 Flow FiO2 Ox Delivery Rate 07/23 0911 97.5 81 20 120/70 07/23 0910 97.5 81 20 120/70 07/23 0800 95 Nasal 2.0L Cannula 07/23 0730 97.5 81 20 120/70 95 Nasal 2.0L Cannula 07/23 0007 85 98 07/23 0000 BIPAP 07/22 2301 97.6 82 20 118/70 93 Nasal Cannula 07/22 2023 84 110/54 07/22 1821 97.7 82 20 110/60 95 07/22 1600 96 Nasal 3.0L Cannula Intake & Output 07/23 1600 07/23 0800 07/23 0000 07/22 1600 07/22 0800 07/22 0000 Intake Total 50 260 200 120 260 Output Total 600 150 50 100 Balance -550 110 150 20 260 Intake, IV 10 10 Intake, Oral 50 250 200 120 250 Number 1 Bowel Movements Output, Stool 50 Output, Urine 600 150 100 Patient 179 lb 179 lb 179 lb Weight Physical Exam: comfortable HEENT No obvious changes Cor S1S2 Resp Decr at bases Abd No overt tend Ext No significant edema Current Medications: Current Medications Sig/Lenny Start time Last Medication Dose Route Stop Time Status Admin Acetaminophen 650 MG Q6P PRN 07/21 1700 AC PO Acetaminophen/ 1 TAB Q6P PRN 07/21 1700 AC Hydrocodone Bitart PO Acetazolamide 250 MG DAILY 07/22 1145 AC 07/23 PO 0910 Cyanocobalamin 1,000 MCG DAILY 07/21 1932 AC 07/23 PO 0910 Folic Acid 2 MG DAILY 07/22 1000 AC 07/23 PO 0910 Furosemide 20 MG BID 07/21 2199 AC 07/23 IV 0914 Heparin Sodium 5,000 UNIT Q8 07/22 1400 AC 07/23 (Porcine) SC 0611 Levothyroxine Sodium 0.2 MG DAILY 07/22 1000 AC 07/23 PO 0758 Lisinopril 20 MG DAILY 07/22 1000 AC 07/23 PO 0910 Metoprolol Tartrate 12.5 MG BID 07/22 2200 AC 07/23 PO 0911 Metoprolol Tartrate 12.5 MG BID 07/21 2200 DC 07/22 PO 1208 Omeprazole 20 MG DAILY AC 07/22 1130 AC 07/23 PO 0611 Oxycodone HCl 10 MG Q6P PRN 07/21 1700 AC PO Phytonadione 5 MG DAILY 07/22 1145 AC 07/23 PO 07/24 2200 0910 Prednisone 20 MG DAILY 07/22 1500 AC 07/23 PO 0911 Repaglinide 0.5 MG TIDAC 07/22 0800 AC 07/23 PO 1219 Results Last 24 Hours of Lab Results: Laboratory Tests 07/23 07/23 0615 0615 Chemistry Sodium (137 - 145 mmol/L) 142 Potassium (3.5 - 5.1 mmol/L) 4.3 Chloride (98 - 107 mmol/L) 98 Carbon Dioxide (22 - 30 mmol/L) 34 H Anion Gap (5 - 16) 11 BUN (9 - 20 mg/dL) 50 H Creatinine (0.7 - 1.2 mg/dL) 1.8 H Estimated GFR (>60 ml/min) 37 L BUN/Creatinine Ratio (7 - 25 %) 27.8 H Hemoglobin A1c Pending Magnesium (1.6 - 2.3 mg/dL) 1.8 Coagulation PT (9.4 - 12.5 SEC) 16.5 H INR (0.90 - 1.17) 1.58 H Hematology CBC w Diff NO MAN DIFF REQ WBC (4.8 - 10.8 /CUMM) 1.8 L RBC (4.70 - 6.10 /CUMM) 3.46 L Hgb (14.0 - 18.0 G/DL) 8.3 L Hct (42 - 52 %) 26.0 L MCV (80.0 - 94.0 FL) 75.0 L MCH (27.0 - 31.0 PG) 23.9 L RDW (11.5 - 14.5 %) 22.2 H Plt Count (130 - 400 /CUMM) 97 L MPV (7.4 - 10.4 FL) 7.1 L Gran % (42.2 - 75.2 %) 54.8 Lymphocytes % (20.5 - 51.1 %) 33.9 Monocytes % (1.7 - 9.3 %) 10.2 H Eosinophils % (0 - 5 %) 0.2 Basophils % (0.0 - 2.0 %) 0.9 Absolute Granulocytes (1.4 - 6.5 /CUMM) 1.0 L Absolute Lymphocytes (1.2 - 3.4 /CUMM) 0.6 L Absolute Monocytes (0.10 - 0.60 /CUMM) 0.2 Absolute Eosinophils (0.0 - 0.7 /CUMM) 0 Absolute Basophils (0.0 - 0.2 /CUMM) 0 PUBS MCHC (33.0 - 37.0 G/DL) 31.9 L 07/22 1919 Blood Gas pH (7.35 - 7.45 PH) 7.36 pCO2 (35 - 45 TORR) 57 H pO2 (80 - 100 TORR) 87 HCO3 (21 - 28 MEQ/L) 32 H ABG O2 Sat (Measured) (>96.0 %) 95.0 L P-50 (Temp Corrected) N Carboxyhemoglobin (1.5 - 5.0 %) 0.9 L O2 Concentration % 2L Temperature (97.0 - 100.0 FARH) 97.7 O2 Delivery Method NC Miscellaneous Phlebotomy Draw Site RIGHT RADIAL Assessment/Plan Assessment/Recommendations: Panctyopenia- Overall remains cytopenic but preserved ANC. Follow up daily CBC daily. Continue to monitor for any bleeding. Receiving Vit K and INR improved. Fibrinogen was ok and please check to make sure a FLO was sent. Although he is not neutropenic, would monitor closely for infection. Dr. Nevarez to follow up on Monday. Please call if any acute hematologic changes. Gus Obregon Jr., M.D. [phone]
[2016-07-23 15:36] VITALS: BP 100/60
[2016-07-23 21:53] VITALS: BP 106/64
[2016-07-23 22:57] VITALS: BP 100/58
[2016-07-24 08:10] VITALS: BP 110/60
[2016-07-24 08:38] LABS: PT 15.9 SEC (9.4-12.5)
[2016-07-24 10:24] LABS: ABSOLUTE BASOPHIL COUNT 0 /CUMM (0.0-0.2); ABSOLUTE EOSINOPHIL COUNT 0 /CUMM (0.0-0.7); ABSOLUTE GRANULOCYTE CT 1.5 /CUMM (1.4-6.5); ABSOLUTE LYMPH COUNT 0.5 /CUMM (1.2-3.4); ABSOLUTE MONOCYTE COUNT 0.1 /CUMM (0.10-0.60); BASOPHIL % 0.2 % (0.0-2.0); EOSINOPHIL % 0.1 % (0-5); GRANULOCYTE % 70.3 % (42.2-75.2); HEMATOCRIT 23.4 % (42-52); MEAN CORPUSCULAR HGB 23.8 PG (27.0-31.0); MEAN CORPUSCULAR HGB CONC 32.1 G/DL (33.0-37.0); MEAN CORPUSCULAR VOLUME 74.1 FL (80.0-94.0); MEAN PLATELET VOLUME 7.2 FL (7.4-10.4); PLATELET COUNT 109 /CUMM (130-400); RBC DISTRIBUTION WIDTH 21.6 % (11.5-14.5); RED BLOOD CELL CT 3.15 /CUMM (4.70-6.10); WHITE BLOOD CELL COUNT 2.2 /CUMM (4.8-10.8)
--- NOTE | 2016-07-24 10:49 | PN- Pulmonary ---
Subjective HPI/Critical Care Issues: Patient appears lethargic but nursing reports he was wake out of bed having breakfast this morning Objective Current Medications: Current Medications Sig/Lenny Start time Last Medication Dose Route Stop Time Status Admin Acetaminophen 650 MG Q6P PRN 07/21 1700 AC PO Acetaminophen/ 1 TAB Q6P PRN 07/21 1700 AC Hydrocodone Bitart PO Acetazolamide 250 MG DAILY 07/22 1145 AC 07/24 PO 0801 Cyanocobalamin 1,000 MCG DAILY 07/21 1932 AC 07/24 PO 0802 Folic Acid 2 MG DAILY 07/22 1000 AC 07/24 PO 0800 Furosemide 20 MG BID 07/21 2200 AC 07/24 IV 0759 Heparin Sodium 5,000 UNIT Q8 07/22 1400 AC 07/24 (Porcine) SC 0703 Levothyroxine Sodium 0.2 MG DAILY 07/22 1000 AC 07/24 PO 0801 Lisinopril 20 MG DAILY 07/22 1000 AC 07/24 PO 0759 Metoprolol Tartrate 12.5 MG BID 07/22 2200 AC 07/24 PO 0759 Omeprazole 20 MG DAILY AC 07/22 1130 AC 07/24 PO 0703 Oxycodone HCl 10 MG Q6P PRN 07/21 1700 AC PO Phytonadione 5 MG DAILY 07/22 1145 AC 07/24 PO 07/24 2200 0759 Prednisone 20 MG DAILY 07/22 1500 AC 07/24 PO 0800 Repaglinide 0.5 MG TIDAC 07/22 0800 AC 07/24 PO 0800 Vital Signs & I&O Last 24 Hrs of Vitals and I&O: Vital Signs Date Time Temp Pulse Resp B/P Pulse O2 O2 Flow FiO2 Ox Delivery Rate 07/24 0815 97 Nasal 2.0L Cannula 07/24 0810 97.6 81 20 110/60 97 Nasal 2.0L Cannula 07/24 0143 71 95 07/24 0000 Nasal 1.5L Cannula 07/23 2257 97.9 81 18 100/58 95 Nasal Cannula 07/23 2245 84 106/64 07/23 2153 81 106/64 07/23 1600 Nasal 1.5L Cannula 07/23 1536 97.5 80 18 100/60 96 Intake & Output 07/24 1600 07/24 0800 07/24 0000 Intake Total 400 612 Output Total 201 600 600 Balance 199 -600 12 Intake, IV 12 Intake, Oral 400 600 Number 1 Bowel Movements Output, Stool 1 Output, Urine 200 600 600 Since saturation 2 L 97% exam of his chest shows occasional crackles cardiac exam shows regular S1 and S2 without murmurs Impression/Plan Impression/Plan Impression/Plan: 5-year-old gentleman with congestive heart failure improved hypercapnic respiratory failure. He is developed worsening anemia Recommendations: Continue when necessary BiPAP maintain potassium at 4 to avoid further metabolic alkalosis. Evaluate acute anemia follow-up previous recommendations. Continue Taper oxygen his saturations allow
--- NOTE | 2016-07-24 10:55 | PN- Housestaff ---
GLEN TELLES,[facility] 07/24/16 1055: Subjective Follow-up For: Weakness B/L LE edema Diastolic CHF Hypoxia and preexistant loculated pleural effusion Resistant pulmonary edema Subjective: Patient was seen and examined this morning. He is sleeping comfortably and his family states that he feels much better today. He is able to walk to the bathroom, a task that he was previously unable to do. Review of Systems Constitutional: Denies: see HPI. Objective Last 24 Hrs of Vital Signs/I&O Vital Signs Date Time Temp Pulse Resp B/P Pulse O2 O2 Flow FiO2 Ox Delivery Rate 07/24 0815 97 Nasal 2.0L Cannula 07/24 0810 97.6 81 20 110/60 97 Nasal 2.0L Cannula 07/24 0143 71 95 07/24 0000 Nasal 1.5L Cannula 07/23 2257 97.9 81 18 100/58 95 Nasal Cannula 07/23 2245 84 106/64 07/23 2153 81 106/64 Intake & Output 07/24 1600 07/24 0800 07/24 0000 Intake Total 850 612 Output Total 451 600 600 Balance 399 -600 12 Intake, IV 12 Intake, Oral 850 600 Number 1 Bowel Movements Output, Stool 1 Output, Urine 450 600 600 Physical Exam General Appearance: Alert, Oriented X3, Cooperative, No Acute Distress Skin: No Rashes, No Breakdown, No Significant Lesion Cardiovascular: Regular Rate, Normal S1, Normal S2, No Murmurs Lungs: bilateral basal crackles Abdomen: Normal Bowel Sounds, Soft, No Tenderness Neurological: Normal Speech, Strength at 5/5 X4 Ext, Normal Tone, Sensation Intact, Cranial Nerves 3-12 NL, Reflexes 2+ Extremities: No Clubbing, No Cyanosis, bilateral +1 pedal edema Vascular: Normal Pulses Assessment/Plan Assessment: Mr. Lomas is a 75 y/o M with chief complain of weakness for two days. He has PMHx of grade 3 diastolic dysfunction, prostate cancer s/p hormone and radiation therapy, rheumatoid arthritis, hypothyroidism, R-sided CVA, cardiac tamponade s/ p pericardial window, HLD, HTN and T2DM on prandin 0.5 mg before meals, no insulin per Dr. Hutchison, bilateral loculated pleural effusion, emphysema, baseline hypercarbia, abnormal swallowing test, Hx of elevated globulin gap with exclusion to multiple myeloma. Problem list -CHF exacerbation -HTN and HLP -DM type 2 -Rheumatoid arthritis on methotrexate -Leukopenia, thrombocytopenia -Chronic anemia -Hypothyroidism -Elevated globulin gap Plan CHF exacerbation -patient has history of CHFbEF -weakness mostly related to hypoxia given diffuse crackles and abnormal ABG -Lasix 40 mg BID -TRC TID and PRN -Aspiration precaution -Pulmonary consultation obtained followed recommendations -Maintain potassium above 2 -Continue oxygen taper allows Elevated troponin -Troponin went up from 0.1 to 0.14 and 0.16 which came down to 0.12, no EKG changes, no chest pain reported by the patient. -Cardiology on board, suggested ECHO -As per Dr. Chapman, further outpatient evaluation may include right and left heart cardiac catheterization to rule out ischemia, pericardial disease, etc. -HTN and HLP -continue home medication as blood pressure allows -Enalapril 20 mg daily, metoprolol tartrate 12.5 mg BID DM type 2 -prandin 0.5 mg before meals, no insulin per Dr. Hutchison -Patient is very sensitive to insulin -HGA1c 8.3 Rheumatoid arthritis on methotrexate -Hold methotrexate -Continue prednisone 20 mg daily Leukopenia, thrombocytopenia -Patient is on methotrexate for RA -consult obtained with Dr. Nevarez -Reticulocyte count is 2.3 -Lactate dehydrogenase is 008 Chronic anemia -Continue Folic acid and Vit B 12 -Start ferrous 325 mg daily Hypothyroidism -Continue synthroid 0.2 MG daily -Checked TSH and T4:WNL Elevated globulin gap -Recent 07/19 Protein electrophoresis showed 17% albumin, alpha 1 globulin 2%, alpha 2 globulin 7%, beta globulin 27% , gammaglobulin 47% Consistent Carbohydrate 3 chopped and thick nectar DVT PPx ALPs Code Full Problem List: 1. Hypoxia 2. Pericardial effusion 3. Congestive heart failure 4. Diabetes 5. Elevated serum globulin level 6. Acute diastolic CHF (congestive heart failure) 7. T2DM (type 2 diabetes mellitus) 8. CHF exacerbation 9. Pulmonary edema Pain Ratin Pain Location: n/a Pain Goal: Pain 4 or less Pain Plan: see medication Tomorrow's Labs & Rationales: cbc, cmp, INR LAMAR TELLES,[facility] 07/24/16 1125: Attending Review Statement Attending Statement Attending MD Statement: examined this patient, discuss w/resident/PA/[employer], agreed w/resident/PA/[employer], discussed with family, reviewed EMR data (avail), discussed with nursing, discussed with case mgmt, reviewed images, amended to note Attending Assessment/Plan: Patient seen and examined. Resting comfortably in bed. Does not offer any complaint. Had a renal ultrasound yesterday but did not show any hydronephrosis. His CBC looks better today. And renal function is stable. Still on 2 L of oxygen. Patient seen and examined. Sitting comfortably in bed. Has language barrier. Denies any complaint. Problem list 1. Congestive heart failure 2. Chronic anemia 3. Worsening renal function 4. History of diabetes Recommendations 1. Continue IV diuresis. Monitor renal function. 2. Physical therapy. 3. Taper oxygen as tolerated. Follow up cardiology recommendations.
--- NOTE | 2016-07-24 14:54 | PN- Cardiology ---
Subjective Subjective: No obvious significant changes Objective Vital Signs and I&Os Vital Signs Date Time Temp Pulse Resp B/P Pulse O2 O2 Flow FiO2 Ox Delivery Rate 07/24 0815 97 Nasal 2.0L Cannula 07/24 0810 97.6 81 20 110/60 97 Nasal 2.0L Cannula 07/24 0143 71 95 07/24 0000 Nasal 1.5L Cannula 07/23 2257 97.9 81 18 100/58 95 Nasal Cannula 07/23 2245 84 106/64 07/23 2153 81 106/64 07/23 1600 Nasal 1.5L Cannula 07/23 1536 97.5 80 18 100/60 96 Intake & Output 07/24 1600 07/24 0800 07/24 0000 07/23 1600 07/23 0800 07/23 0000 Intake Total 850 612 360 50 260 Output Total 451 600 600 200 600 150 Balance 399 -600 12 160 -550 110 Intake, IV 12 10 Intake, Oral 850 600 360 50 250 Number 1 2 Bowel Movements Output, Stool 1 Output, Urine 450 600 600 200 600 150 Patient 179 lb Weight Physical Exam: Gen.: Well-developed, well-nourished, white male, non-Kyrgyz speaking, no obvious acute distress. HEENT: Normal Neck: JVP normal, carotid upstrokes 2+ bilaterally with no bruits, no masses, no thyromegaly. Chest: Decreased breath sounds bilaterally with bilateral rhonchi and wheezing. Heart: Regular S1, S2. No audible murmurs. Abdomen: Normal, bowel sounds positive, nontender Extremities,again cyanosis, clubbing, or edema. Current Medications: Current Medications Sig/Lenyn Start time Last Medication Dose Route Stop Time Status Admin Acetaminophen 650 MG Q6P PRN 07/21 1700 AC PO Acetaminophen/ 1 TAB Q6P PRN 07/21 1700 AC Hydrocodone Bitart PO Acetazolamide 250 MG DAILY 07/22 1145 AC 07/24 PO 0801 Cyanocobalamin 1,000 MCG DAILY 07/21 1932 AC 07/24 PO 0802 Folic Acid 2 MG DAILY 07/22 1000 AC 07/24 PO 0800 Furosemide 20 MG BID 07/21 2200 AC 07/24 IV 0759 Heparin Sodium 5,000 UNIT Q8 07/22 1400 AC 07/24 (Porcine) SC 1220 Levothyroxine Sodium 0.2 MG DAILY 07/22 1000 AC 07/24 PO 0801 Lisinopril 20 MG DAILY 07/22 1000 AC 07/24 PO 0759 Metoprolol Tartrate 12.5 MG BID 07/22 2200 AC 07/24 PO 0759 Omeprazole 20 MG DAILY AC 07/22 1130 AC 07/24 PO 0703 Oxycodone HCl 10 MG Q6P PRN 07/21 1700 AC PO Phytonadione 5 MG DAILY 07/22 1145 AC 07/24 PO 07/24 220 0759 Prednisone 20 MG DAILY 07/22 1500 AC 07/24 PO 0800 Repaglinide 0.5 MG TIDAC 07/22 0800 AC 07/24 PO 1220 Results Last 48 Hrs of Labs/Mics: Laboratory Tests 07/24/16 0640: Anion Gap 9, Estimated GFR 39 L, BUN/Creatinine Ratio 37.1 H, Magnesium 2.0, PT 15.9 H, INR 1.52 H, CBC w Diff NO MAN DIFF REQ, RBC 3.15 L, MCV 74.1 L, MCH 23.8 L, RDW 21.6 H, MPV 7.2 L, Gran % 70.3, Lymphocytes % 24.6, Monocytes % 4.8, Eosinophils % 0.1, Basophils % 0.2, Absolute Granulocytes 1.5, Absolute Lymphocytes 0.5 L, Absolute Monocytes 0.1 L, Absolute Eosinophils 0, Absolute Basophils 0, PUBS MCHC 32.1 L 07/23/16 0615: Hemoglobin A1c 8.3 H 07/23/16 0615: Anion Gap 11, Estimated GFR 37 L, BUN/Creatinine Ratio 27.8 H, Magnesium 1.8, PT 16.5 H, INR 1.58 H, CBC w Diff NO MAN DIFF REQ, RBC 3.46 L, MCV 75.0 L, MCH 23.9 L, RDW 22.2 H, MPV 7.1 L, Gran % 54.8, Lymphocytes % 33.9, Monocytes % 10.2 H, Eosinophils % 0.2, Basophils % 0.9, Absolute Granulocytes 1.0 L, Absolute Lymphocytes 0.6 L, Absolute Monocytes 0.2, Absolute Eosinophils 0, Absolute Basophils 0, PUBS MCHC 31.9 L 07/22/16 1920: pH 7.36, pCO2 57 H, pO2 87, HCO3 32 H, ABG O2 Sat (Measured) 95.0 L, P-50 ( Temp Corrected) N, Carboxyhemoglobin 0.9 L, O2 Concentration % 2L, Temperature 97.7, O2 Delivery Method NC, Phlebotomy Draw Site RIGHT RADIAL Assessment/Plan Assessment/Plan Assessment: 1. Increasing shortness of breath with history of congestive heart failure ( HFpEF) 2. History of pericardial effusion/An odd, status post pericardial window 3. Microcytic anemia 4. Worsening acute renal insufficiency-creatinine increased to 1.8 today after minimal diuresis 5. Diabetes recommendations: -Continue current management for now. -Continue to closely monitor her intakes, outputs, and daily weights. The patient is approximate 600 mL negative on his fluid balance over the last 36 hours. -Follow-up creatinine/BUN in a.m. creatinine slightly decreased to 1.7 today. -If further deterioration in renal function, consider nephrology input -As per Dr. Chapman, further outpatient evaluation may include right and left heart cardiac catheterization to rule out ischemia, pericardial disease, etc. -Anemia workup pending. Continue telemetry? Yes
[2016-07-24 16:46] VITALS: BP 100/58
[2016-07-25 00:15] VITALS: BP 98/56
--- NOTE | 2016-07-25 00:50 | NUR ---
AROUND 2044 ON 07/24/16 PT CONTINUED TO BE VERY DROWSY, AROUSABLE TO VERBAL/LIGHT TACTILE STIMULI BUT UNABLE TO STAY AWAKE FOR LONG. VS 106/66, HR 70, OXYGEN SAT 96% 2L, TEMP 97.4. LUNGS CLEAR/DIMINISHED AT BASES. CALLED IMSOSA TELLES TO ASSESS PT DUE TO CONTINUED SLEEPING THROUGHOUT MAJORITY OF DAY PER (BROKEN WELSH). IMGE ARRIVED TO ROOM TO ASSESS PATIENT. ABG ORDERED. PATIENTS SON AT BEDSIDE TO TRANSLATE. LATER PTS SON INFORMED THIS RN THAT PT AMBULATED WITH AROUND ROOM, PT APPEARED MORE ALERT AND AWAKE.
--- NOTE | 2016-07-25 06:53 | PN- Hematology ---
Subjective Subjective: Complaining of generalized weakness, no definite chest pain, remains somewhat short of breath Review of Systems: 12 point review of systems otherwise unchanged Objective Vital Signs and I&Os Vital Signs Date Time Temp Pulse Resp B/P Pulse O2 O2 Flow FiO2 Ox Delivery Rate 07/25 0015 98.0 81 20 98/56 93 07/25 0000 Nasal 2.0L Cannula 07/24 2200 98/60 07/24 1646 97.9 71 22 100/58 95 07/24 1600 Nasal 2.0L Cannula 07/24 0815 97 Nasal 2.0L Cannula 07/24 0810 97.6 81 20 110/60 97 Nasal 2.0L Cannula Intake & Output 07/25 0800 07/25 0000 07/24 1600 07/24 0800 07/24 0000 07/23 1600 Intake Total 370 850 612 360 Output Total 400 451 600 600 200 Balance -30 399 -600 12 160 Intake, IV 10 12 Intake, Oral 360 850 600 360 Number 1 2 Bowel Movements Output, Stool 1 Output, Urine 400 450 600 600 200 Patient 176 lb Weight Gen.: in NAD ENT: Sclera anicteric Chest: Normal respiratory effort, decreased breath sounds Cor: RRR, no extra sounds Abdomen: Soft, bowel sounds present, no tenderness, no rebound Extremities: Without clubbing, cyanosis, or asymmetric edema Neurology: Alert and oriented 3, Current Medications: Current Medications Sig/Lenny Start time Last Medication Dose Route Stop Time Status Admin Acetaminophen 650 MG Q6P PRN 07/21 1700 AC PO Acetaminophen/ 1 TAB Q6P PRN 07/21 1700 AC Hydrocodone Bitart PO Acetazolamide 250 MG DAILY 07/22 1145 AC 07/24 PO 0801 Cyanocobalamin 1,000 MCG DAILY 07/21 1932 AC 07/24 PO 0802 Folic Acid 2 MG DAILY 07/22 1000 AC 07/24 PO 0800 Furosemide 20 MG BID 07/21 2200 AC 07/24 IV 2244 Heparin Sodium 5,000 UNIT Q8 07/22 1400 AC 07/25 (Porcine) SC 0600 Levothyroxine Sodium 0.2 MG DAILY 07/22 1000 AC 07/24 PO 0801 Lisinopril 20 MG DAILY 07/22 1000 AC 07/24 PO 0759 Metoprolol Tartrate 12.5 MG BID 07/22 2200 AC 07/24 PO 0759 Omeprazole 20 MG DAILY AC 07/22 1130 AC 07/25 PO 0635 Oxycodone HCl 10 MG Q6P PRN 07/21 1700 AC PO Phytonadione 5 MG DAILY 07/22 1145 DC 07/24 PO 07/24 2200 0759 Potassium Chloride 40 MEQ ONCE ONE 07/24 1615 DC 07/24 PO 07/24 1616 1805 Prednisone 20 MG DAILY 07/22 1500 AC 07/24 PO 0800 Repaglinide 0.5 MG TIDAC 07/22 0800 AC 07/24 PO 1805 Results Last 24 Hours of Lab Results: Laboratory Tests 07/24 2109 Blood Gas pH (7.35 - 7.45 PH) 7.45 pCO2 (35 - 45 TORR) 43 pO2 (80 - 100 TORR) 97 HCO3 (21 - 28 MEQ/L) 29 H ABG O2 Sat (Measured) (>96.0 %) 95.0 L Carboxyhemoglobin (1.5 - 5.0 %) 2.0 O2 Concentration % 2L O2 Delivery Method N/C Miscellaneous Phlebotomy Draw Site RIGHT RADIAL Isabella' direct-1+ LDH nl Assessment/Plan Assessment/Recommendations: 1. Hematologic status-remains unchanged blood counts, given normal LDH and bilirubin, 1+ direct Isabella' test doubt active hemolysis, methotrexate a likely possibility Recommend- Consider careful red blood cell transfusion Check stools for occult blood No plans for bone marrow examination at this time 2. Cardiopulmonary disease
[2016-07-25 08:11] VITALS: BP 100/58
[2016-07-25 08:36] LABS: ABSOLUTE BASOPHIL COUNT 0 /CUMM (0.0-0.2); ABSOLUTE EOSINOPHIL COUNT 0 /CUMM (0.0-0.7); ABSOLUTE GRANULOCYTE CT 1.4 /CUMM (1.4-6.5); ABSOLUTE LYMPH COUNT 0.6 /CUMM (1.2-3.4); ABSOLUTE MONOCYTE COUNT 0.1 /CUMM (0.10-0.60); BASOPHIL % 0.4 % (0.0-2.0); EOSINOPHIL % 0.3 % (0-5); HEMATOCRIT 24.7 % (42-52); MEAN CORPUSCULAR HGB 23.9 PG (27.0-31.0); MEAN CORPUSCULAR HGB CONC 32.3 G/DL (33.0-37.0); MEAN PLATELET VOLUME 7.4 FL (7.4-10.4); PLATELET COUNT 98 /CUMM (130-400); RED BLOOD CELL CT 3.34 /CUMM (4.70-6.10); WHITE BLOOD CELL COUNT 2.2 /CUMM (4.8-10.8)
--- NOTE | 2016-07-25 09:20 | PN- Housestaff ---
GLEN TELLES,[facility] 07/25/16 0919: Subjective Follow-up For: Weakness B/L LE edema Diastolic CHF Hypoxia and preexistant loculated pleural effusion Resistant pulmonary edema Tele-Events Since Last Visit: Sinus rhythm, heart rate 60-73 no overnight events Subjective: Patient was seen and examined this morning. He is drowsy but arousable. He doesnt have specific complaints. His nurse mentioned that he has been drowsy since yesterday. He is comfortably asleep on 2L O2. He does not appear in acute distress. No overnight events. Review of Systems Constitutional: Denies: see HPI. Objective Last 24 Hrs of Vital Signs/I&O Vital Signs Date Time Temp Pulse Resp B/P Pulse O2 O2 Flow FiO2 Ox Delivery Rate 07/25 0954 68 100/58 07/25 0947 68 100/58 07/25 0811 97.1 68 20 97 Nasal 2.0L Cannula 07/25 0015 98.0 81 20 98/56 93 07/25 0000 Nasal 2.0L Cannula 07/24 2200 98/60 07/24 1646 97.9 71 22 100/58 95 07/24 1600 Nasal 2.0L Cannula Intake & Output 07/25 1600 07/25 0800 07/25 0000 Intake Total 100 370 Output Total 450 400 Balance -350 -30 Intake, IV 10 Intake, Oral 100 360 Output, Urine 450 400 Patient 79.832 kg Weight Physical Exam General Appearance: No Acute Distress, drowsy Skin: No Rashes, No Breakdown Cardiovascular: Regular Rate, Normal S1, Normal S2, No Murmurs Lungs: Normal Air Movement, basal bilateral crackles Abdomen: Normal Bowel Sounds, Soft, No Tenderness Neurological: Normal Speech, Strength at 5/5 X4 Ext, Normal Tone, Sensation Intact, Cranial Nerves 3-12 NL, Reflexes 2+ Extremities: No Clubbing, No Cyanosis, bilateral +2 pedal edema Vascular: Normal Pulses Assessment/Plan Assessment: Mr. Lomas is a 75 y/o M with chief complain of weakness for two days. He has PMHx of grade 3 diastolic dysfunction, prostate cancer s/p hormone and radiation therapy, rheumatoid arthritis, hypothyroidism, R-sided CVA, cardiac tamponade s/ p pericardial window, HLD, HTN and T2DM on prandin 0.5 mg before meals, no insulin per Dr. Hutchison, bilateral loculated pleural effusion, emphysema, baseline hypercarbia, abnormal swallowing test, Hx of elevated globulin gap with exclusion to multiple myeloma. Problem list -CHF exacerbation -HTN and HLP -DM type 2 -Rheumatoid arthritis on methotrexate -Leukopenia, thrombocytopenia -Chronic anemia -Hypothyroidism -Elevated globulin gap Plan CHF exacerbation -patient has history of CHFbEF -weakness mostly related to hypoxia given diffuse crackles and abnormal ABG -Lasix 40 mg BID -Start Diamox 250 daily PO -TRC TID and PRN -Aspiration precaution -Pulmonary consultation obtained followed recommendations -Maintain potassium above 2 -Continue oxygen taper allows -ABG on 07/24 pH 7.45, PCO2 43, PO2 97, bicarbonate 29 Elevated troponin -Troponin went up from 0.1 to 0.14 and 0.16 which came down to 0.12, no EKG changes, no chest pain reported by the patient. -Cardiology on board, suggested ECHO -As per Dr. Chapman, further outpatient evaluation may include right and left heart cardiac catheterization to rule out ischemia, pericardial disease, etc. -HTN and HLP -continue home medication as blood pressure allows -Enalapril 20 mg daily, metoprolol tartrate 12.5 mg BID DM type 2 -prandin 0.5 mg before meals, no insulin per Dr. Hutchison -Patient is very sensitive to insulin -HGA1c 8.3 Rheumatoid arthritis on methotrexate -Hold methotrexate -Continue prednisone 20 mg daily Leukopenia, thrombocytopenia -Patient is on methotrexate for RA -consult obtained with Dr. Nevarez -Reticulocyte count is 2.3 -Lactate dehydrogenase is 008 -Anderson test +1 with negative LDH and bilrubin. Low suspicion for hemolytic anemia -Recommendation to careful red blood cell transfusion and hem occult stool -H&H today is 8.7 Chronic anemia -H&H today is 02/23.7 -Continue Folic acid and Vit B 12 -continue ferrous 325 mg daily Hypothyroidism -Continue synthroid 0.2 MG daily -TSH and T4:WNL Elevated globulin gap -Recent 07/19 Protein electrophoresis showed 17% albumin, alpha 1 globulin 2%, alpha 2 globulin 7%, beta globulin 27% , gammaglobulin 47% -No mononuclear proteins detected Consistent Carbohydrate 3 chopped and thick nectar DVT PPx ALPs Code Full Problem List: 1. Essential hypertension 2. Hypothyroidism 3. Rheumatoid arthritis 4. Diabetes 5. Congestive heart failure Pain Ratin Pain Location: n/a Pain Goal: Pain 4 or less Pain Plan: see medication Tomorrow's Labs & Rationales: CBC, CMP VICTORINO OBRIEN MD 07/25/162109: Attending MD Review Statement Attending Statement Attending MD Statement: examined this patient, discuss w/resident/PA/ASSURANCE SENIOR, agreed w/resident/PA/ASSURANCE SENIOR, discussed with family, reviewed EMR data (avail), discussed with nursing, discussed with case mgmt, amended to note Attending Assessment/Plan: The patient was seen and discussed with house staff. Agree with plan of care as outlined.
--- NOTE | 2016-07-25 13:23 | PN- Pulmonary ---
Subjective HPI/Critical Care Issues: Complaining of generalized weakness, no definite chest pain, remains somewhat short of breath Review of Systems: 12 point review of systems otherwise unchanged Objective Current Medications: Current Medications Sig/Lenny Start time Last Medication Dose Route Stop Time Status Admin Acetaminophen 650 MG Q6P PRN 07/21 1700 AC PO Acetaminophen/ 1 TAB Q6P PRN 07/21 1700 AC Hydrocodone Bitart PO Acetazolamide 250 MG DAILY 07/22 1145 AC 07/25 PO 0947 Cyanocobalamin 1,000 MCG DAILY 07/21 1932 AC 07/25 PO 0947 Folic Acid 2 MG DAILY 07/22 1000 AC 07/25 PO 0947 Furosemide 20 MG BID 07/21 2200 AC 07/25 IV 0954 Heparin Sodium 5,000 UNIT Q8 07/22 1400 AC 07/25 (Porcine) SC 0600 Levothyroxine Sodium 0.2 MG DAILY 07/22 1000 AC 07/25 PO 0947 Lisinopril 20 MG DAILY 07/22 1000 AC 07/25 PO 0954 Metoprolol Tartrate 12.5 MG BID 07/22 2200 AC 07/25 PO 0947 Omeprazole 20 MG DAILY AC 07/22 1130 AC 07/25 PO 0635 Oxycodone HCl 10 MG Q6P PRN 07/21 1700 AC PO Phytonadione 5 MG DAILY 07/22 1145 DC 07/24 PO 07/24 2199 0759 Potassium Chloride 40 MEQ ONCE ONE 07/24 1615 DC 07/24 PO 07/24 1616 1805 Prednisone 20 MG DAILY 07/22 1500 AC 07/25 PO 0947 Repaglinide 0.5 MG TIDAC 07/22 0800 AC 07/25 PO 1213 Laboratory Tests 07/25 07/24 0628 2110 Blood Gas pH (7.35 - 7.45 PH) 7.45 pCO2 (35 - 45 TORR) 43 pO2 (80 - 100 TORR) 97 HCO3 (21 - 28 MEQ/L) 29 H ABG O2 Sat (Measured) (>96.0 %) 95.0 L Carboxyhemoglobin (1.5 - 5.0 %) 2.0 O2 Concentration % 2L O2 Delivery Method N/C Chemistry Sodium (137 - 145 mmol/L) 142 Potassium (3.5 - 5.1 mmol/L) 3.9 Chloride (98 - 107 mmol/L) 99 Carbon Dioxide (22 - 30 mmol/L) 33 H Anion Gap (5 - 16) 9 BUN (9 - 20 mg/dL) 75 H Creatinine (0.7 - 1.2 mg/dL) 1.6 H Estimated GFR (>60 ml/min) 42 L BUN/Creatinine Ratio (7 - 25 %) 46.9 H Coagulation PT (9.4 - 12.5 SEC) 14.0 H INR (0.90 - 1.17) 1.34 H Hematology CBC w Diff NO MAN DIFF REQ WBC (4.8 - 10.8 /CUMM) 2.2 L RBC (4.70 - 6.10 /CUMM) 3.34 L Hgb (14.0 - 18.0 G/DL) 8.0 L Hct (42 - 52 %) 24.7 L MCV (80.0 - 94.0 FL) 74.0 L MCH (27.0 - 31.0 PG) 23.9 L RDW (11.5 - 14.5 %) 22.0 H Plt Count (130 - 400 /CUMM) 98 L MPV (7.4 - 10.4 FL) 7.4 Gran % (42.2 - 75.2 %) 65.0 Lymphocytes % (20.5 - 51.1 %) 28.7 Monocytes % (1.7 - 9.3 %) 5.6 Eosinophils % (0 - 5 %) 0.3 Basophils % (0.0 - 2.0 %) 0.4 Absolute Granulocytes (1.4 - 6.5 /CUMM) 1.4 Absolute Lymphocytes (1.2 - 3.4 /CUMM) 0.6 L Absolute Monocytes (0.10 - 0.60 /CUMM) 0.1 L Absolute Eosinophils (0.0 - 0.7 /CUMM) 0 Absolute Basophils (0.0 - 0.2 /CUMM) 0 PUBS MCHC (33.0 - 37.0 G/DL) 32.3 L Miscellaneous Phlebotomy Draw Site RIGHT RADIAL 07/24 0640 Chemistry Sodium (137 - 145 mmol/L) 141 Potassium (3.5 - 5.1 mmol/L) 3.7 Chloride (98 - 107 mmol/L) 98 Carbon Dioxide (22 - 30 mmol/L) 34 H Anion Gap (5 - 16) 9 BUN (9 - 20 mg/dL) 63 H Creatinine (0.7 - 1.2 mg/dL) 1.7 H Estimated GFR (>60 ml/min) 39 L BUN/Creatinine Ratio (7 - 25 %) 37.1 H Magnesium (1.6 - 2.3 mg/dL) 2.0 Coagulation PT (9.4 - 12.5 SEC) 15.9 H INR (0.90 - 1.17) 1.52 H Hematology CBC w Diff NO MAN DIFF REQ WBC (4.8 - 10.8 /CUMM) 2.2 L RBC (4.70 - 6.10 /CUMM) 3.15 L Hgb (14.0 - 18.0 G/DL) 7.5 L Hct (42 - 52 %) 23.4 L MCV (80.0 - 94.0 FL) 74.1 L MCH (27.0 - 31.0 PG) 23.8 L RDW (11.5 - 14.5 %) 21.6 H Plt Count (130 - 400 /CUMM) 109 L MPV (7.4 - 10.4 FL) 7.2 L Gran % (42.2 - 75.2 %) 70.3 Lymphocytes % (20.5 - 51.1 %) 24.6 Monocytes % (1.7 - 9.3 %) 4.8 Eosinophils % (0 - 5 %) 0.1 Basophils % (0.0 - 2.0 %) 0.2 Absolute Granulocytes (1.4 - 6.5 /CUMM) 1.5 Absolute Lymphocytes (1.2 - 3.4 /CUMM) 0.5 L Absolute Monocytes (0.10 - 0.60 /CUMM) 0.1 L Absolute Eosinophils (0.0 - 0.7 /CUMM) 0 Absolute Basophils (0.0 - 0.2 /CUMM) 0 PUBS MCHC (33.0 - 37.0 G/DL) 32.1 L Vital Signs & I&O Last 24 Hrs of Vitals and I&O: Vital Signs Date Time Temp Pulse Resp B/P Pulse O2 O2 Flow FiO2 Ox Delivery Rate 07/25 0954 68 100/58 07/25 0947 68 100/58 07/25 0811 97.1 68 20 97 Nasal 2.0L Cannula 07/25 0015 98.0 81 20 98/56 93 07/25 0000 Nasal 2.0L Cannula 07/24 2200 98/60 07/24 1646 97.9 71 22 100/58 95 07/24 1600 Nasal 2.0L Cannula Intake & Output 07/25 1600 07/25 0800 07/25 0000 Intake Total 100 370 Output Total 450 400 Balance -350 -30 Intake, IV 10 Intake, Oral 100 360 Output, Urine 450 400 Patient 176 lb Weight Impression/Plan Impression/Plan Impression/Plan: Physical Exam: Well-developed, well-nourished elderly male, less lethargic than yesterday Appeared short of breath Vital signs: See above. HEENT: Normocephalic, atraumatic, EOMI, moist mucous membranes. Neck: No JVD, no bruits. Lungs: Bibasilar crackles. Mild wheezing Heart: S1, S2 with no murmur, gallop, or rub appreciated. PMI fifth ICS at MCL. Abdomen: Soft, nontender, positive bowel sounds. Extremities: Trace bilateral lower extremity edema. Neurological exam patient was mildly lethargic but easily arousable. SIGNIFICANT DATA Previous echocardiogram showed significant mild anterior wall hypokinesis and restrictive filling pattern with moderate pulmonary hypertension Chest x-ray done showed bilateral pleural effusion with persistent diffuse interstitial edema stable opacity with loculated fluid in the chest which is not changed from before He has chronically elevated creatinine bicarbonate is 38 anion gap was normal White count was low at 2.9 platelets are low at 116 is chronically anemic with hemoglobin of 9 with MCV of 75 is INR was 1.77 his previous immunoelectrophoresis showed chronic inflammatory process his anti-CCP was very high no monoclonal antibody seen in his electrophoresis His CT chest reviewed which showed congestive heart failure with loculated pleural effusion small pericardial effusion also. IMPRESSION This is a gentleman with history of rheumatoid arthritis on methotrexate hence immunosuppressed, Previous sig pericardial effusion prob related to RA s/p window with neg cytology and cultures for any malignancy and infections, Chronic loculated effusion both sides due to inflammatory path due to RA, significant diastolic heart disease with thickened pericardium with prob restrictive physiology, diabetes, coronary artery disease, now has the following issues * Resolved Acute on chronic hypercarbic respiratory failure due to probable obesity hypoventilation, persistent heart failure with central apnea. Did respond to BiPAP. Better * Persistant pulmonary edema significant diastolic dysfunction consistent with restrictive hemodynamics. * He has had previous history of pericardial window and he has thickened pericardium this may be also causing constictive pericaridal path. THis is related to sig RA with sig serositis * On off aspiration in the past * Bilateral loculated pleural effusion in the fissure related to inflammatory process, and the pathology is prob the same as his the pathology which caused his pericardial effusion i.e. rheumatoid arthritis. His TB cultures have been negative in the past. There is no clear evidence suggestive of empyema or significant pulmonary malignancy, cytology neg from pericardial window * Prior granulomatous lung disease with mild emphysema * Sig microcytic anemia with prob anemia of chronic disease, Previous history of hemolytic anemia * Mild pancytopenia rule out myelodysplasia * Sig history of RHeumatoid and hence immunosuppressed * Chronic kidney disease stage II, with diabetes with mild proteinuria and hypertension * History of prostate ca REC Continue gentle diuresis, watch his creatinine. Keep his potassium more than 4 Keep him off BiPAP if possible during the day if he is awake and responding appropriately. Pt would need diamox 250 qod Heme onc follow up noted Anticoagulation for prevention of DVT, subcutaneous heparin Hold methotrexate Continue folic acid B12 1000 international units daily
[2016-07-25 16:50] VITALS: BP 118/70
--- NOTE | 2016-07-25 18:47 | PN- Cardiology ---
Subjective Subjective: No specific complaints. Objective Vital Signs and I&Os Vital Signs Date Time Temp Pulse Resp B/P Pulse O2 O2 Flow FiO2 Ox Delivery Rate 07/25 1650 97.4 68 18 118/70 95 Nasal 2.0L Cannula 07/25 0954 68 100/58 07/25 0947 68 100/58 07/25 0811 97.1 68 20 100/58 97 Nasal 2.0L Cannula 07/25 0015 98.0 81 20 98/56 93 07/25 0000 Nasal 2.0L Cannula 07/24 2200 98/60 Intake & Output 07/25 1600 07/25 0800 07/25 0000 07/24 1600 07/24 0800 07/24 0000 Intake Total 100 370 850 612 Output Total 450 400 451 600 600 Balance -350 -30 399 -600 12 Intake, IV 10 12 Intake, Oral 100 360 850 600 Number 1 Bowel Movements Output, Stool 1 Output, Urine 450 400 450 600 600 Patient 176 lb 176 lb Weight Physical Exam: Well-developed, elderly male in no acute distress with nasal oxygen in place. Vital signs: See above. Lungs bibasilar crackles. Heart: S1, S2. Extremities: Bilateral lower extremity edema. Assessment/Plan Assessment/Plan Mr. Lomas is an elderly male recently diagnosed with diabetes mellitus and placed on insulin therapy who again presents with progressive shortness of breath, orthopnea, cough, and lower extremity edema with clinical and radiographic evidence of heart failure, weakness, and worsening anemia. The etiology for his heart failure is presently unclear, but although he had normal left ventricular wall thickness observed on his most recent echocardiogram, he also had evidence of stage III diastolic dysfunction. He also has a recently diagnosed risk equivalent and has multiple risk factors for coronary artery disease which may be responsible for his presentation secondary to ischemia. The plan was for outpatient follow-up that was to include an imaging stress test , but we were hoping that he would clinically improve not only from his heart failure, but also the persistent aspiration that was occurring during his last hospitalization. If there was evidence of ischemia on stress testing we planned to have him undergo combined right and left heart cardiac catheterization. If there was no evidence of ischemia we planned to pursue a cardiac MRI to better assess the pericardium and possibly proceed with right heart catheterization. Clinically, he has improved with diuresis. His creatinine is also better, however, his BUN is elevated. Replete potassium and follow up magnesium. Continue IV diuresis and negative fluid balance. Given suspicion of coronary artery disease would slowly transfuse PRBCs to maintain hemoglobin above 8 g/dl. Consider repeat CXR in a.m. When clinically improved, we'll perform an imaging stress test and make further recommendations based on those findings. Continue to check all stools for occult blood. Continue DVT prophylaxis. Continue telemetry? Yes
[2016-07-25 22:00] VITALS: BP 112/58
[2016-07-26 07:54] LABS: ABSOLUTE BASOPHIL COUNT 0 /CUMM (0.0-0.2); ABSOLUTE EOSINOPHIL COUNT 0 /CUMM (0.0-0.7); ABSOLUTE GRANULOCYTE CT 1.2 /CUMM (1.4-6.5); ABSOLUTE LYMPH COUNT 0.6 /CUMM (1.2-3.4); ABSOLUTE MONOCYTE COUNT 0.2 /CUMM (0.10-0.60); BASOPHIL % 0.4 % (0.0-2.0); EOSINOPHIL % 0.1 % (0-5); GRANULOCYTE % 59.1 % (42.2-75.2); HEMATOCRIT 24.9 % (42-52); MEAN CORPUSCULAR HGB 23.8 PG (27.0-31.0); MEAN CORPUSCULAR HGB CONC 31.9 G/DL (33.0-37.0); MEAN CORPUSCULAR VOLUME 74.7 FL (80.0-94.0); MEAN PLATELET VOLUME 7.5 FL (7.4-10.4); PLATELET COUNT 90 /CUMM (130-400); RBC DISTRIBUTION WIDTH 21.9 % (11.5-14.5); RED BLOOD CELL CT 3.33 /CUMM (4.70-6.10); WHITE BLOOD CELL COUNT 2.1 /CUMM (4.8-10.8)
[2016-07-26 08:00] VITALS: BP 100/60
--- NOTE | 2016-07-26 09:14 | RADIOLOGY REPORT ---
EXAMINATION: XR PORTABLE CHEST CLINICAL INFORMATION: Shortness of breath. COMPARISON: 07/21/2016 TECHNIQUE: Portable view of the chest was obtained. FINDINGS: Cardiomegaly and persistent vascular congestion. Interstitial edema is slightly improved compared to 07/21/2016. The right pleural effusion has decreased in size. Atelectasis within the right lung base has decreased. There is a persistent small left pleural effusion. Small amount of fluid is likely loculated within the right minor fissure. No pneumothorax or other significant interval change. IMPRESSION: Congestive heart failure is slightly improved compared to 07/21/2016 and the right pleural effusion has decreased in size.
--- NOTE | 2016-07-26 09:47 | PN- Housestaff ---
[facility] 07/26/16 0947: Subjective Follow-up For: Weakness B/L LE edema Diastolic CHF Hypoxia and preexistant loculated pleural effusion Resistant pulmonary edema Tele-Events Since Last Visit: Sinus rhythm, heart rate 65-18, PVCs Subjective: Patient was seen and examined this morning. He has no complaints. He is lethergic but arousable on 2L O2. His nurse reported that he is more active when his is around. He denied any pain or shortness of breath, cough. No events overnight. He does not appear in distress. Review of Systems Constitutional: Denies: see HPI. Objective Last 24 Hrs of Vital Signs/I&O Vital Signs Date Time Temp Pulse Resp B/P Pulse O2 O2 Flow FiO2 Ox Delivery Rate 07/26 1146 97.5 67 20 110/50 07/26 0914 63 110/62 07/26 0914 63 110/62 07/26 0800 Nasal 2.0L Cannula 07/26 0800 98.0 73 20 100/60 99 Nasal 2.0L Cannula 07/26 0000 95 Nasal 2.0L Cannula 07/25 2205 81 112/60 07/25 2200 98.2 72 22 112/58 95 Nasal 2.0L Cannula 07/25 1650 97.4 68 18 118/70 95 Nasal 2.0L Cannula Intake & Output 07/26 1600 07/26 0800 07/26 0000 Intake Total 240 350 Output Total 250 275 375 Balance -250 -35 -25 Intake, Oral 240 350 Output, Urine 250 275 375 Patient 79.379 kg Weight Physical Exam General Appearance: Cooperative, No Acute Distress, Drowsy but arousable Skin: No Rashes, No Breakdown, No Significant Lesion HEENT: Atraumatic, PERRLA, EOMI Neck: Supple Cardiovascular: Regular Rate, Normal S1, Normal S2, No Murmurs Abdomen: Normal Bowel Sounds, Soft, No Tenderness Neurological: Normal Speech, Strength at 5/5 X4 Ext, Normal Tone, Sensation Intact, Cranial Nerves 3-12 NL, Reflexes 2+ Extremities: No Clubbing, No Cyanosis, No Tenderness/Swelling, L lower extremity edema > R lower extremity edema, Lina's sign negative, Non tender calf Vascular: Normal Pulses Assessment/Plan Assessment: Mr. Lomas is a 75 y/o M with chief complain of weakness for two days. He has PMHx of grade 3 diastolic dysfunction, prostate cancer s/p hormone and radiation therapy, rheumatoid arthritis, hypothyroidism, R-sided CVA, cardiac tamponade s/ p pericardial window, HLD, HTN and T2DM on prandin 0.5 mg before meals, no insulin per Dr. Hutchison, bilateral loculated pleural effusion, emphysema, baseline hypercarbia, abnormal swallowing test, Hx of elevated globulin gap with exclusion to multiple myeloma. Problem list -CHF exacerbation -HTN and HLP -DM type 2 -Rheumatoid arthritis on methotrexate -Leukopenia, thrombocytopenia -Chronic anemia -Hypothyroidism -Elevated globulin gap Plan CHF exacerbation -patient has history of CHFpEF -Patient presented with history of weakness for 2 days, he continued to be lethargic. Weakness could be multifactorial, anemia, congestive heart failure with pulmonary complication -Lasix 20 mg BID, keep gentle hydration given worsening kidney function -Continue Diamox 250 qod -Repeated chest x-ray 07/26 showed slight improvement in the congestive heart failure with decrease in the size of right pleural effusion and compared to the study on 07/21 -Maintain hemoglobin above 8 g/dL, patient received 1 unit of blood today, will repeat the CBC in the a.m. -Guaiac all stool -Maintain potassium above 4 and magnesium above 2 -Maintain negative fluid balance, I/O today -115 -TRC TID and PRN -BiPAP, keep off BiPAP and the patient is awake and respond appropriately -Aspiration precaution, patient has abnormal barium swallowing test -Pulmonary consultation obtained followed recommendations for the persistent small bilateral pleural effusion and interstitial edema -Repeat ABG today Elevated troponin -Troponin went up from 0.1 to 0.14 and 0.16 which came down to 0.12, no EKG changes, no chest pain reported by the patient. -Cardiology on board, possible plan for stress test and right and left heart catheterization -HTN and HLP -Enalapril 20 mg daily, metoprolol tartrate 12.5 mg BID DM type 2 -prandin 0.5 mg before meals, no insulin per Dr. Hutchison -Patient is very sensitive to insulin -HGA1c 8.3 Rheumatoid arthritis on methotrexate -Hold methotrexate -Continue prednisone 20 mg daily Leukopenia, thrombocytopenia -Patient is on methotrexate for RA -consult obtained with Dr. Nevarez -Reticulocyte count is 2.3 -Lactate dehydrogenase WNL -Anderson test +1 with negative LDH and bilrubin. Low suspicion for hemolytic anemia -Recommendation to careful red blood cell transfusion and hem occult stool Chronic anemia -H&H dropped today to 7.9/24.9 -Patient received 1 unit of blood to keep hemoglobin above 8 -Continue Folic acid and Vit B 12 -continue ferrous 325 mg daily Hypothyroidism -Continue synthroid 0.2 MG daily -TSH and T4:WNL Elevated globulin gap -Recent 07/19 Protein electrophoresis showed 17% albumin, alpha 1 globulin 2%, alpha 2 globulin 7%, beta globulin 27% , gammaglobulin 47% -No mononuclear proteins detected Consistent Carbohydrate 3 chopped and thick nectar DVT PPx ALPs Code Full Problem List: 1. Essential hypertension 2. Hypothyroidism 3. Rheumatoid arthritis 4. Pericardial effusion 5. T2DM (type 2 diabetes mellitus) 6. CHF exacerbation 7. Diabetes Pain Ratin Pain Location: n/a Pain Goal: Pain 4 or less Pain Plan: see medication Tomorrow's Labs & Rationales: CBC in the setting of anemia, thrombocytopenia and leukopenia CMP in sitting of worsening kidney function and for potassium magnesium depletion VICTORINO OBRIEN MD 07/26/16 2310: Attending MD Review Statement Attending Statement Attending MD Statement: examined this patient, discuss w/resident/PA/RECOVERY ANALYST, agreed w/resident/PA/RECOVERY ANALYST, discussed with family, reviewed EMR data (avail), discussed with nursing, discussed with case mgmt, amended to note Attending Assessment/Plan: The patient was seen and discussed with house staff, nursing and case management. Some increased lethargy noted. Will transfuse 1 unit PRBC and observe response. Continue diuresis and monitor renal function. Await cardiology follow-up.
--- NOTE | 2016-07-26 11:13 | PN- Pulmonary ---
Subjective HPI/Critical Care Issues: Little more stronger Afebrile oxygenating well Objective Current Medications: Current Medications Sig/Lenny Start time Last Medication Dose Route Stop Time Status Admin Acetaminophen 650 MG Q6P PRN 07/21 170 AC PO Acetaminophen/ 1 TAB Q6P PRN 07/21 1700 AC Hydrocodone Bitart PO Acetazolamide 250 MG DAILY 07/25 1453 DC 07/25 PO 1825 Acetazolamide 250 MG DAILY 07/22 1145 AC 07/26 PO 0914 Cyanocobalamin 1,000 MCG DAILY 07/21 1932 AC 07/26 PO 0914 Folic Acid 2 MG DAILY 07/22 1000 AC 07/26 PO 0914 Furosemide 20 MG BID 07/21 2200 AC 07/26 IV 0913 Heparin Sodium 5,000 UNIT Q8 07/22 1400 AC 07/26 (Porcine) SC 0627 Levothyroxine Sodium 0.2 MG DAILY 07/22 1000 AC 07/26 PO 0756 Lisinopril 20 MG DAILY 07/22 1000 AC 07/26 PO 0914 Metoprolol Tartrate 12.5 MG BID 07/22 2200 AC 07/26 PO 0914 Omeprazole 20 MG DAILY AC 07/22 1130 AC 07/26 PO 0627 Oxycodone HCl 10 MG Q6P PRN 07/21 1700 AC PO Potassium Chloride 20 MEQ ONCE ONE 07/25 1914 DC 07/25 PO 07/25 Prednisone 20 MG DAILY 07/22 1500 AC 07/26 PO 0914 Repaglinide 0.5 MG TIDAC 07/22 0800 AC 07/26 PO 0756 Vital Signs & I&O Last 24 Hrs of Vitals and I&O: Vital Signs Date Time Temp Pulse Resp B/P Pulse O2 O2 Flow FiO2 Ox Delivery Rate 07/26 0914 63 110/62 07/26 0914 63 110/62 07/26 0800 98.0 73 20 100/60 99 Nasal 2.0L Cannula 07/26 0000 95 Nasal 2.0L Cannula 07/25 2204 81 112/60 07/25 2199 98.2 72 22 112/58 95 Nasal 2.0L Cannula 07/25 1650 97.4 68 18 118/70 95 Nasal 2.0L Cannula Intake & Output 07/26 1600 07/26 0800 07/26 0000 Intake Total 240 350 Output Total 250 275 375 Balance -250 -35 -25 Intake, Oral 240 350 Output, Urine 250 275 375 Laboratory Tests 07/26 07/25 0635 0628 Chemistry Sodium (137 - 145 mmol/L) 143 142 Potassium (3.5 - 5.1 mmol/L) 4.0 3.9 Chloride (98 - 107 mmol/L) 101 99 Carbon Dioxide (22 - 30 mmol/L) 31 H 33 H Anion Gap (5 - 16) 10 9 BUN (9 - 20 mg/dL) 78 H 75 H Creatinine (0.7 - 1.2 mg/dL) 1.6 H 1.6 H Estimated GFR (>60 ml/min) 42 L 42 L BUN/Creatinine Ratio (7 - 25 %) 48.8 H 46.9 H Magnesium (1.6 - 2.3 mg/dL) 2.1 2.1 Coagulation PT (9.4 - 12.5 SEC) 14.0 H INR (0.90 - 1.17) 1.34 H Hematology CBC w Diff NO MAN DIFF REQ NO MAN DIFF REQ WBC (4.8 - 10.8 /CUMM) 2.1 L 2.2 L RBC (4.70 - 6.10 /CUMM) 3.33 L 3.34 L Hgb (14.0 - 18.0 G/DL) 7.9 L 8.0 L Hct (42 - 52 %) 24.9 L 24.7 L MCV (80.0 - 94.0 FL) 74.7 L 74.0 L MCH (27.0 - 31.0 PG) 23.8 L 23.9 L RDW (11.5 - 14.5 %) 21.9 H 22.0 H Plt Count (130 - 400 /CUMM) 90 L 98 L MPV (7.4 - 10.4 FL) 7.5 7.4 Gran % (42.2 - 75.2 %) 59.1 65.0 Lymphocytes % (20.5 - 51.1 %) 30.4 28.7 Monocytes % (1.7 - 9.3 %) 10.0 H 5.6 Eosinophils % (0 - 5 %) 0.1 0.3 Basophils % (0.0 - 2.0 %) 0.4 0.4 Absolute Granulocytes (1.4 - 6.5 /CUMM) 1.2 L 1.4 Absolute Lymphocytes (1.2 - 3.4 /CUMM) 0.6 L 0.6 L Absolute Monocytes (0.10 - 0.60 /CUMM) 0.2 0.1 L Absolute Eosinophils (0.0 - 0.7 /CUMM) 0 0 Absolute Basophils (0.0 - 0.2 /CUMM) 0 0 PUBS MCHC (33.0 - 37.0 G/DL) 31.9 L 32.3 L 07/24 2109 Blood Gas pH (7.35 - 7.45 PH) 7.45 pCO2 (35 - 45 TORR) 43 pO2 (80 - 100 TORR) 97 HCO3 (21 - 28 MEQ/L) 29 H ABG O2 Sat (Measured) (>96.0 %) 95.0 L Carboxyhemoglobin (1.5 - 5.0 %) 2.0 O2 Concentration % 2L O2 Delivery Method N/C Miscellaneous Phlebotomy Draw Site RIGHT RADIAL Impression/Plan Impression/Plan Impression/Plan: Physical Exam: Well-developed, well-nourished elderly male, less lethargic than yesterday Appeared short of breath Vital signs: See above. HEENT: Normocephalic, atraumatic, EOMI, moist mucous membranes. Neck: No JVD, no bruits. Lungs: Bibasilar crackles. Mild wheezing Heart: S1, S2 with no murmur, gallop, or rub appreciated. PMI fifth ICS at MCL. Abdomen: Soft, nontender, positive bowel sounds. Extremities: Trace bilateral lower extremity edema. Neurological exam patient was mildly lethargic but easily arousable. SIGNIFICANT DATA Previous echocardiogram showed significant mild anterior wall hypokinesis and restrictive filling pattern with moderate pulmonary hypertension Chest x-ray done showed bilateral pleural effusion with persistent diffuse interstitial edema stable opacity with loculated fluid in the chest which is not changed from before He has chronically elevated creatinine bicarbonate is 38 anion gap was normal White count was low at 2.9 platelets are low at 116 is chronically anemic with hemoglobin of 9 with MCV of 75 is INR was 1.77 his previous immunoelectrophoresis showed chronic inflammatory process his anti-CCP was very high no monoclonal antibody seen in his electrophoresis His CT chest reviewed which showed congestive heart failure with loculated pleural effusion small pericardial effusion also. IMPRESSION This is a gentleman with history of rheumatoid arthritis on methotrexate hence immunosuppressed, Previous sig pericardial effusion prob related to RA s/p window with neg cytology and cultures for any malignancy and infections, Chronic loculated effusion both sides due to inflammatory path due to RA, significant diastolic heart disease with thickened pericardium with prob restrictive physiology, diabetes, coronary artery disease, now has the following issues * Resolved Acute on chronic hypercarbic respiratory failure due to probable obesity hypoventilation, persistent heart failure with central apnea. Did respond to BiPAP. Better * Resolving pulmonary edema significant diastolic dysfunction consistent with restrictive hemodynamics. * He has had previous history of pericardial window and he has thickened pericardium this may be also causing constictive pericaridal path. THis is related to sig RA with sig serositis * On off aspiration in the past * Bilateral loculated pleural effusion in the fissure related to inflammatory process, and the pathology is prob the same as his the pathology which caused his pericardial effusion i.e. rheumatoid arthritis. His TB cultures have been negative in the past. There is no clear evidence suggestive of empyema or significant pulmonary malignancy, cytology neg from pericardial window * Prior granulomatous lung disease with mild emphysema * Sig microcytic anemia with prob anemia of chronic disease, Previous history of hemolytic anemia * Mild pancytopenia rule out myelodysplasia * Sig history of RHeumatoid and hence immunosuppressed * Chronic kidney disease stage II, with diabetes with mild proteinuria and hypertension * History of prostate ca REC Continue gentle diuresis, watch his creatinine. Keep his potassium more than 4 Keep him off BiPAP if possible during the day if he is awake and responding appropriately. Pt would need diamox 250 qod please change this Can reduce lasix ask cardio Heme onc follow up noted Anticoagulation for prevention of DVT, subcutaneous heparin Hold methotrexate Continue folic acid B12 1000 international units daily
[2016-07-26 11:46] VITALS: BP 110/50
[2016-07-26 15:31] VITALS: BP 120/66
--- NOTE | 2016-07-26 17:45 | Cons- Nephrology ---
General Information and HPI Consulting Request Date of Consult: 07/26/16 Requested By: VICTORINO OBRIEN MD Reason for Consult: Elevated creatinine level History of Present Illness: The patient is a 75-year-old gentleman who was admitted on 07/21 with weakness and shortness of breath felt to be secondary to CHF and COPD exacerbations. His past medical history is as noted below including diastolic CHF and COPD as well as pleural effusions. He has also had tamponade treated with a pericardial window. PCO2 on admission was 78 with a pH of 7.27 and bicarbonate of 35. On he was somewhat alkalemic with a pH is 7.45, PCO2 of 43 and bicarbonate of 29. Today serum bicarbonate is 31. During the hospitalization he was found to be pancytopenic (on methotrexate) with a creatinine of 1.2 on admission rising to 1.8 on 07/23 before falling to 1.6 yesterday and today. He has a history of diabetes mellitus and hypertension; urinalysis on this admission showed 30 mg percent dipstick proteinuria. Renal ultrasound showed 10.3 and 9.7 cm kidneys without hydronephrosis. He has been treated with steroids, acetazolamide, IV Lasix and lisinopril (having been on enalapril as an outpatient). Past medical history positive for type 2 diabetes mellitus, hypertension, hyperlipidemia, diastolic congestive heart failure, pericardial window for tamponade not, COPD with hypercapnia, pleural effusions, aspiration pneumonia, CVA, rheumatoid arthritis (methotrexate), hypothyroidism, prostate CA treated with radiation and hormonal therapy. 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 Allergies/Medications Allergies: Coded Allergies: aspirin (Mild, ULCER 10/13/15) Home Med List: Enalapril Maleate 20 MG TAB 1 TAB PO DAILY HTN (Reported) Folic Acid 1 MG TABLET 2 MG PO DAILY SUPPLEMENT (Reported) Furosemide (Lasix) 40 MG TABLET 1 TAB PO BID DIURETIC (Reported) Levothyroxine Sodium 0.2 MG TAB 1 TAB PO DAILY THYROID (Reported) Methotrexate 2.5 MG TABLET 5 MG PO QTHURS RHEUMATOID ARTHRITIS (Reported) Metoprolol Tartrate 25 MG TABLET 12.5 MG PO BID HEART HEALTH Repaglinide (Prandin) 0.5 MG TABLET 1 TAB PO TIDAC DIABETES Hold prandin if you skip a meal Review of Systems Review of Systems Constitutional: Reports: malaise, weakness. EENTM: Denies: no symptoms. Cardiovascular: Reports: edema, orthopena, peripheral edema. Respiratory: Reports: short of breath, wheezing. GI: Denies: no symptoms. Genitourinary: Denies: no symptoms. Musculoskeletal: Denies: no symptoms. Skin: Denies: no symptoms. Neurological/Psychological: Denies: no symptoms. Hematologic/Endocrine: Denies: no symptoms. Immunologic/Allergic: Denies: no symptoms. Past History Travel History Traveled to [place] past 21 day No Medical History Blood Transfusion Hx: Yes Neurological: CVA at age of 45 due to hypertension Cardiovascular: NONE (pericardial disease, s/p windo), CHF (pericardial effusion ), hypertension, CARDIOMEGALY Gastrointestinal: upper GI bleed Musculoskeletal: rheumatoid arthritis Endocrine: diabetes, hypothyroidism Blood Disorders: anemia Cancer(s): prostate cancer Surgical History Surgical History: non-contributory Psychosocial History Who Do You Live With? spouse, child Services at Home: None Primary Language: [facility] Smoking Status: Former Smoker ETOH Use: denies use Illicit Drug Use: denies illicit drug use Functional Ability ADLs Independent: dressing, eating, toileting, bathing. Ambulation: independent Exam & Diagnostic Data Vital Signs and I&O Vital Signs Date Time Temp Pulse Resp B/P Pulse O2 O2 Flow FiO2 Ox Delivery Rate 07/26 1531 98.1 67 20 120/66 96 07/26 1146 97.5 67 20 110/50 07/26 0914 63 110/62 07/26 0914 63 110/62 07/26 0800 Nasal 2.0L Cannula 07/26 0800 98.0 73 20 100/60 99 Nasal 2.0L Cannula 07/26 0000 95 Nasal 2.0L Cannula 07/25 2205 81 112/60 07/25 2199 98.2 72 22 112/58 95 Nasal 2.0L Cannula Intake & Output 07/26 1600 07/26 0400 07/25 1600 07/25 0400 07/24 1600 07/24 040 Intake Total 710 350 850 370 850 612 Output Total 478 639 9326 400 1051 600 Balance -115 -25 -200 -30 -201 12 Intake, Blood 350 Product Intake, IV 10 12 Intake, Oral 360 350 850 360 850 600 Number 1 1 Bowel Movements Output, Stool 1 Output, Urine 908 460 1816 400 1050 600 Patient 175 lb 176 lb Weight Physical Exam: General: Well-developed, chronically ill-appearing white male in NAD Skin: No rash or jaundice HEENT: Conjunctivae pale, sclerae anicteric, mucous membranes moist Neck: Without masses or thyromegaly, no supraclavicular or cervical adenopathy Chest: Scattered rhonchi and wheezes Heart: Regular rate and rhythm without S3 or rub Abdomen: Obese, soft and nontender without palpable masses or organomegaly Extremities: 2+ peripheral edema without cyanosis Neuro: No asterixis or myoclonus Assessment/Plan Assessment/Recommendations Assessment: 75-year-old gentleman with a multitude of comorbidities as noted above including diabetes mellitus, hypertension, diastolic congestive heart failure, COPD and CKD who now comes in several days ago with weakness and shortness of breath felt to be on the basis of CHF and COPD exacerbations. He was treated for both entities in the usual fashion including steroids and parenteral diuretics. The rise in serum creatinine is likely on the basis of hemodynamic changes induced by his CHF and therapy thereof. There is no evidence of obstruction by imaging studies and he has not been exposed to any parenteral contrast, NSAIDs or other potential nephrotoxins other than diuretics. Recommendations: 1. Would check a serum protein electrophoresis and a spot urine for protein to creatinine ratio 2. Continue current diuretic regimen for now but with a word of caution. Diamox therapy, which is currently being used to manage his post-hypercapnic metabolic alkalosis, will need to be closely monitored as, in addition to potentially producing significant hypokalemia, it can also make his acidemia worse should he develop another bout of acute CO2 retention. 3. Can also continue his MOISES inhibitor 4. We may have to accept a creatinine near or at his current level in order to maximize his respiratory status and maintain him as free as possible of respiratory symptoms due to volume overload Thank you. Will follow up.
[2016-07-27 00:16] VITALS: BP 118/60
--- NOTE | 2016-07-27 05:13 | Event Note ---
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 Patient was asymptomatic during this time and sleeping. Vitals were stable. EKG and troponins were ordered. EKG showed normal sinus rhythm with no acute changes. Mg and Phos were added to yesterday's AM labs and were both within normal limits. Looking back at the prior monitor readings, it was noted that patient had an episode of 6-beat vtach on July 23 at 1 AM. There were no further episodes of arrhythmia reported. Will continue to monitor and repeat BMP , Mg and Phos at 6 AM.
--- NOTE | 2016-07-27 07:21 | PN- Housestaff ---
GLEN TELLES,[facility] [place] 07/27/16 0720: Subjective Follow-up For: Weakness B/L LE edema Diastolic CHF Hypoxia and preexistant loculated pleural effusion Resistant pulmonary edema Tele-Events Since Last Visit: V tach run of 13 beat at around 3 AM Otherwise sinus rhythm with bundle-branch block Subjective: Patient was seen and examined this morning, he looked more awake and alert than yesterday. He has his and brother at bedside and they wanted to discuss the goal of care and if there is any necessity for him to be transferred to [facility]. Patient denied any fever or chills, chest pain, shortness of breath he's on 1 L oxygen maintained saturation 96%. Patient has nocturnal cough productive of clear sputum, son said that they noticed this cough is getting worse since admission. The patient is able to move around using his walker with no complaint of shortness of breath. He denied any abdominal pain nausea or vomiting, diarrhea. Patient reported some burning with urination, UA will be ordered. Review of Systems Constitutional: Denies: see HPI. Objective Last 24 Hrs of Vital Signs/I&O Vital Signs Date Time Temp Pulse Resp B/P Pulse O2 O2 Flow FiO2 Ox Delivery Rate 07/27 0016 97.9 64 20 118/60 96 Nasal Cannula 07/27 0000 94 Nasal 2.0L Cannula 07/26 2107 76 124/74 07/26 1600 Nasal 1.0L Cannula 07/26 1531 98.1 67 20 120/66 96 07/26 1146 97.5 67 20 110/50 07/26 0914 63 110/62 07/26 0914 63 110/62 Intake & Output 07/27 1600 07/27 0800 07/27 0000 Intake Total 200 480 Output Total 500 800 Balance -300 -320 Intake, Oral 200 480 Output, Urine 500 800 Patient 80.739 kg Weight Physical Exam General Appearance: Alert, Oriented X3, Cooperative, No Acute Distress Skin: No Rashes, No Breakdown, No Significant Lesion HEENT: Atraumatic, PERRLA, EOMI, Mucous Membr. moist/pink Neck: Supple, No JVD Cardiovascular: Regular Rate, Normal S1, Normal S2, No Murmurs Lungs: Normal Air Movement, bilateral basilar crackles Abdomen: Normal Bowel Sounds, Soft, No Tenderness Neurological: Normal Speech, Strength at 5/5 X4 Ext, Normal Tone, Sensation Intact, Cranial Nerves 3-12 NL, Reflexes 2+ Extremities: No Clubbing, No Cyanosis, bilateral pedal edema +1 Vascular: Normal Pulses Assessment/Plan Assessment: Mr. Lomas is a 75 y/o M with chief complain of weakness for two days. He has PMHx of grade 3 diastolic dysfunction, prostate cancer s/p hormone and radiation therapy, rheumatoid arthritis, hypothyroidism, R-sided CVA, cardiac tamponade s/ p pericardial window, HLD, HTN and T2DM on prandin 0.5 mg before meals, no insulin per Dr. Hutchison, bilateral loculated pleural effusion, emphysema, baseline hypercarbia, abnormal swallowing test, Hx of elevated globulin gap with exclusion to multiple myeloma. Problem list -CHF exacerbation -HTN and HLP -DM type 2 -Rheumatoid arthritis on methotrexate -Leukopenia, thrombocytopenia -Chronic anemia -Hypothyroidism -Elevated globulin gap Plan #CHF exacerbation -patient has history of CHFpEF -Patient presented with history of weakness for 2 days, he continued to be lethargic. Weakness could be multifactorial, anemia, congestive heart failure with pulmonary complication -Lasix 20 mg BID IV , keep gentle hydration given worsening kidney function -DC Diamox 250 qod, use diamox only if HCO3 more than 36 or if K more than 4 -Repeated chest x-ray 07/26 showed slight improvement in the congestive heart failure with decrease in the size of right pleural effusion and compared to the study on 07/21 -Patient has multiple risk factors and risk equivalent for coronary artery disease, maintain hemoglobin above 8 g/dL, patient received 1 unit of blood today -Guaiac all stool -Maintain potassium above 4 and magnesium above 2 -Maintain negative fluid balance -432 -TRC TID and PRN -BiPAP, keep off BiPAP and the patient is awake and respond appropriately -Aspiration precaution, patient has abnormal barium swallowing test -Pulmonary consultation obtained followed recommendations for the persistent small bilateral pleural effusion and interstitial edema -Repeat ABG this evening if the patient continue to be sleepy and lethergic #Worsening kindeny function -The patient BUN/Cr 78/1.6 -Nephrology consultation was obtained -Cuurent creatinine level could be acceptable given the patient CHFpEF and respiratory condition -Renal US in 07/23 1. No evidence of hydronephrosis. 2. Small parapelvic mid right renal cyst. 3. Otherwise unremarkable study. -Urine protein to creatinine ratio was ordered PENDING -Serum protein electrophoresis was obtained during last admission in June with negative results for mononuclear proteins -Recommendation to continue current diuretic regimen for with caution -Diamox therapy based on HCO3 and K daily -Continue MOISES inhibitor #Elevated troponin -Patient had 2 runs of v tach on 07/27 and 07/23 -Troponin went up from 0.1 to 0.14 and 0.16 which came down to 0.12, no EKG changes, no chest pain reported by the patient. -Cardiology on board, possible plan for stress test and right and left heart catheterization -HTN and HLP -Enalapril 20 mg daily, metoprolol tartrate 12.5 mg BID #DM type 2 -prandin 0.5 mg before meals, no insulin -Patient is very sensitive to insulin -HGA1c 8.3 #Rheumatoid arthritis on methotrexate -Hold methotrexate -Continue prednisone 20 mg daily #Leukopenia, thrombocytopenia -Patient is on methotrexate for RA -consult obtained with Dr. Nevarez -Reticulocyte count is 2.3 -Lactate dehydrogenase WNL -Anderson test +1 with negative LDH and bilrubin. Low suspicion for hemolytic anemia -Recommendation to careful red blood cell transfusion and hem occult stool #Chronic anemia -Patient received 1 unit of blood to keep hemoglobin above 8 -Continue Folic acid and Vit B 12 -continue ferrous 325 mg daily #Hypothyroidism -Continue synthroid 0.2 MG daily -TSH and T4:WNL #Elevated globulin gap -Recent 07/19 Protein electrophoresis showed 17% albumin, alpha 1 globulin 2%, alpha 2 globulin 7%, beta globulin 27% , gammaglobulin 47% - Consistent Carbohydrate 3 chopped and thick nectar DVT PPx ALPs Code Full Problem List: 1. Hyperlipidemia 2. Hypothyroidism 3. Rheumatoid arthritis 4. Diabetes 5. Acute diastolic CHF (congestive heart failure) Pain Ratin Pain Location: n/a Pain Goal: Pain 4 or less Pain Plan: see mediaction Tomorrow's Labs & Rationales: CBC, CMP, MG and phosphours CAMILLE TELLES,VICTORINO 07/27/16 1401: Attending Review Statement Attending Statement Attending Statement: examined this patient, discuss w/resident/PA/IT SALES CONSULTANT, agreed w/resident/PA/IT SALES CONSULTANT, discussed with family, reviewed EMR data (avail), discussed with nursing, discussed with case mgmt, amended to note Attending Assessment/Plan: The patient was seen and discussed with house staff. Had discussion with his son and family regarding plan of care and also discussed with Dr. Chapman. Clinically much improved today post transfusion. I/O's continue to be negative. To have nuclear stress test tomorrow as per Dr. Chapman.
--- NOTE | 2016-07-27 08:04 | Event Note ---
Event Note Event Note: I got sign out from night team that the patient's family unhappy about medical care, they are thinking to transfer the patient to [facility]. I spoke to patient's son Solitario, who stat that his parents is in panic after they had been told yesterday that patient's kidney is gone and there is not much to be done for him in term of heart issue. They want to discuss the case with the attending , if it possible to transfer the patient to [place]. Also if there is any update about patient condition to be reported only to his son (DARIA) Jaqui who can be reached at [phone].
--- NOTE | 2016-07-27 08:18 | NUR ---
AT 0246 PATIENT HAD 12 BEAT RUN V-TACH. HEART RATE IMMEDIATELY RETURNED TO 70'S NSR. PATIENT AWOKEN, PATIENT DENIED CP/SOB/PALPITATIONS. BP 100/60. DR. BYRNES NOTIFIED AND EKG WAS OBTAINED ORDERED. STRIP PLACED IN CHART. NO FURTHER INTERVENTIONS ORDERED. WILL CONTINUE TO MONITOR.
[2016-07-27 08:37] VITALS: BP 100/62
[2016-07-27 08:40] LABS: ABSOLUTE BASOPHIL COUNT 0 /CUMM (0.0-0.2); ABSOLUTE EOSINOPHIL COUNT 0 /CUMM (0.0-0.7); ABSOLUTE GRANULOCYTE CT 1.6 /CUMM (1.4-6.5); ABSOLUTE LYMPH COUNT 0.5 /CUMM (1.2-3.4); ABSOLUTE MONOCYTE COUNT 0.3 /CUMM (0.10-0.60); BASOPHIL % 0.5 % (0.0-2.0); EOSINOPHIL % 0.4 % (0-5); GRANULOCYTE % 63.9 % (42.2-75.2); HEMATOCRIT 27.7 % (42-52); MEAN CORPUSCULAR HGB 24.7 PG (27.0-31.0); MEAN CORPUSCULAR HGB CONC 32.6 G/DL (33.0-37.0); MEAN CORPUSCULAR VOLUME 75.8 FL (80.0-94.0); MEAN PLATELET VOLUME 7.8 FL (7.4-10.4); RBC DISTRIBUTION WIDTH 22.1 % (11.5-14.5); RED BLOOD CELL CT 3.65 /CUMM (4.70-6.10); WHITE BLOOD CELL COUNT 2.4 /CUMM (4.8-10.8)
[2016-07-27 09:44] LABS: PLATELET COUNT 70 /CUMM (130-400)
--- NOTE | 2016-07-27 11:12 | PN- Pulmonary ---
Subjective HPI/Critical Care Issues: Sleeping comfortably Family not at the bedside today Did not use bipap Objective Current Medications: Current Medications Sig/Lenny Start time Last Medication Dose Route Stop Time Status Admin Acetaminophen 650 MG .STK-MED ONE 07/26 2035 DC PO 07/26 2036 Acetaminophen 650 MG Q6P PRN 07/21 1700 AC 07/26 PO 2038 Acetaminophen/ 1 TAB Q6P PRN 07/21 1700 AC Hydrocodone Bitart PO Acetazolamide 250 MG Q48H 07/28 1000 AC PO Acetazolamide 250 MG DAILY 07/27 1000 CAN PO Acetazolamide 250 MG Q48H 07/26 1130 DC PO Acetazolamide 250 MG DAILY 07/22 1145 DC 07/26 PO 0914 Cyanocobalamin 1,000 MCG DAILY 07/21 1932 AC 07/27 PO 0936 Folic Acid 2 MG DAILY 07/22 1000 AC 07/27 PO 0936 Furosemide 20 MG BID 07/21 2200 AC 07/27 IV 0944 Heparin Sodium 5,000 UNIT Q8 07/22 1400 DC 07/26 (Porcine) SC 0627 Levothyroxine Sodium 0.2 MG DAILY 07/22 1000 AC 07/27 PO 0940 Lisinopril 20 MG DAILY 07/22 1000 AC 07/26 PO 0914 Metoprolol Tartrate 12.5 MG BID 07/22 2200 AC 07/27 PO 0938 Omeprazole 20 MG DAILY AC 07/22 1130 AC 07/27 PO 0610 Oxycodone HCl 10 MG Q6P PRN 07/21 1700 AC PO Potassium Chloride 40 MEQ ONCE ONE 07/27 0930 DC 07/27 PO 07/27 0931 0936 Prednisone 20 MG DAILY 07/22 1500 AC 07/27 PO 0936 Repaglinide 0.5 MG TIDAC 07/22 0800 AC 07/27 PO 0825 Vital Signs & I&O Last 24 Hrs of Vitals and I&O: Vital Signs Date Time Temp Pulse Resp B/P Pulse O2 O2 Flow FiO2 Ox Delivery Rate 07/27 0938 67 98/60 07/27 0938 96.3 67 18 98/60 07/27 0837 96.3 65 18 100/62 98 Nasal 1.0L Cannula 07/27 0800 98 Nasal 2.0L Cannula 07/27 0016 97.9 64 20 118/60 96 Nasal Cannula 07/27 0000 94 Nasal 2.0L Cannula 07/26 2107 76 124/74 07/26 1600 Nasal 1.0L Cannula 07/26 1531 98.1 67 20 120/66 96 07/26 1146 97.5 67 20 110/50 Intake & Output 07/27 1600 07/27 0800 07/27 0000 Intake Total 200 480 Output Total 500 800 Balance -300 -320 Intake, Oral 200 480 Output, Urine 500 800 Patient 178 lb Weight Impression/Plan Impression/Plan Impression/Plan: Physical Exam: Well-developed, well-nourished elderly male, less lethargic than yesterday Appeared short of breath Vital signs: See above. HEENT: Normocephalic, atraumatic, EOMI, moist mucous membranes. Neck: No JVD, no bruits. Lungs: Bibasilar crackles. Mild wheezing Heart: S1, S2 with no murmur, gallop, or rub appreciated. PMI fifth ICS at MCL. Abdomen: Soft, nontender, positive bowel sounds. Extremities: Trace bilateral lower extremity edema. Neurological exam patient was mildly lethargic but easily arousable. SIGNIFICANT DATA Previous echocardiogram showed significant mild anterior wall hypokinesis and restrictive filling pattern with moderate pulmonary hypertension Chest x-ray done showed bilateral pleural effusion with persistent diffuse interstitial edema stable opacity with loculated fluid in the chest which is not changed from before He has chronically elevated creatinine bicarbonate is 38 anion gap was normal White count was low at 2.9 platelets are low at 116 is chronically anemic with hemoglobin of 9 with MCV of 75 is INR was 1.77 his previous immunoelectrophoresis showed chronic inflammatory process his anti-CCP was very high no monoclonal antibody seen in his electrophoresis His CT chest reviewed which showed congestive heart failure with loculated pleural effusion small pericardial effusion also. IMPRESSION This is a gentleman with history of rheumatoid arthritis on methotrexate hence immunosuppressed, Previous sig pericardial effusion prob related to RA s/p window with neg cytology and cultures for any malignancy and infections, Chronic loculated effusion both sides due to inflammatory path due to RA, significant diastolic heart disease with thickened pericardium with prob restrictive physiology, diabetes, coronary artery disease, now has the following issues * Resolved Acute on chronic hypercarbic respiratory failure due to probable obesity hypoventilation, persistent heart failure with central apnea clinically. Did respond to BiPAP. Better * Resolving pulmonary edema significant diastolic dysfunction consistent with restrictive hemodynamics. * CKD with mild worsening of renal function * He has had previous history of pericardial window and he has thickened pericardium this may be also causing constictive pericaridal path. THis is related to sig RA with sig serositis * On off aspiration in the past * Bilateral loculated pleural effusion in the fissure related to inflammatory process, and the pathology is prob the same as his the pathology which caused his pericardial effusion i.e. rheumatoid arthritis. His TB cultures have been negative in the past. There is no clear evidence suggestive of empyema or significant pulmonary malignancy, cytology neg from pericardial window * Prior granulomatous lung disease with mild emphysema * Sig microcytic anemia with prob anemia of chronic disease, Previous history of hemolytic anemia * Mild pancytopenia rule out myelodysplasia * Sig history of RHeumatoid and hence immunosuppressed, was on MTX * Chronic kidney disease stage II, with diabetes with mild proteinuria and hypertension * History of prostate ca REC Continue gentle diuresis, watch his creatinine. Keep his potassium more than 4 As he has improved, will use diamox only if bicarb rises to more than 36 if his potassium is more than 4. Lasix per renal and cardio Heme onc follow up noted Anticoagulation for prevention of DVT, subcutaneous heparin Hold methotrexate Continue folic acid B12 1000 international units daily Overall pt still has sig fatigue and if he is sleepy this pm can repeat abg to assess pco2
--- NOTE | 2016-07-27 12:07 | PN- Cardiology ---
Subjective Subjective: Saw patient last evening (07/26/2016) and spoke with him through an business management consultant. He was feeling improved at that time and it was noticed that he had had a negative fluid balance. Objective Vital Signs and I&Os Vital Signs Date Time Temp Pulse Resp B/P Pulse O2 O2 Flow FiO2 Ox Delivery Rate 07/27 0938 67 98/60 07/27 0938 96.3 67 18 98/60 07/27 0837 96.3 65 18 100/62 98 Nasal 1.0L Cannula 07/27 0800 98 Nasal 2.0L Cannula 07/27 0016 97.9 64 20 118/60 96 Nasal Cannula 07/27 0000 94 Nasal 2.0L Cannula 07/26 2107 76 124/74 07/26 1600 Nasal 1.0L Cannula 07/26 1531 98.1 67 20 120/66 96 Intake & Output 07/27 1600 07/27 0800 07/27 0000 07/26 1600 07/26 0800 07/26 0000 Intake Total 200 480 470 240 350 Output Total 500 800 550 275 375 Balance -300 -320 -80 -35 -25 Intake, Blood 350 Product Intake, Oral 200 480 120 240 350 Output, Urine 500 800 550 275 375 Patient 178 lb 175 lb Weight Physical Exam: Well-developed, elderly male in no acute distress with nasal oxygen in place. Vital signs: See above. Lungs: Bibasilar crackles. Heart: S1, S2. Extremities: Bilateral lower extremity edema. Current Medications: Current Medications Sig/Lenny Start time Last Medication Dose Route Stop Time Status Admin Acetaminophen 650 MG .STK-MED ONE 07/26 2035 DC PO 07/26 2036 Acetaminophen 650 MG Q6P PRN 07/21 1700 AC 07/26 PO 2038 Acetaminophen/ 1 TAB Q6P PRN 07/21 170 AC Hydrocodone Bitart PO Acetazolamide 250 MG Q48H 07/28 1000 AC PO Cyanocobalamin 1,000 MCG DAILY 07/21 1932 AC 07/27 PO 0936 Folic Acid 2 MG DAILY 07/22 1000 AC 07/27 PO 0936 Furosemide 20 MG BID 07/210 AC 07/27 IV 0944 Heparin Sodium 5,000 UNIT Q8 07/22 1400 DC 07/26 (Porcine) SC 0627 Levothyroxine Sodium 0.2 MG DAILY 07/22 1000 AC 07/27 PO 0940 Lisinopril 20 MG DAILY 07/22 1000 AC 07/26 PO 0914 Metoprolol Tartrate 12.5 MG BID 07/22 2200 AC 07/27 PO 0938 Omeprazole 20 MG DAILY AC 07/22 1130 AC 07/27 PO 0610 Oxycodone HCl 10 MG Q6P PRN 07/21 1700 AC PO Potassium Chloride 40 MEQ ONCE ONE 07/27 0930 DC 07/27 PO 07/27 0931 0936 Prednisone 20 MG DAILY 07/22 1500 AC 07/27 PO 0936 Repaglinide 0.5 MG TIDAC 07/22 0800 AC 07/27 PO 0825 Results Last 48 Hrs of Labs/Mics: Laboratory Tests 07/27/16 09: Ur Random Creatinine Pending, U Random Total Protein Pending 07/27/16919: Urine Color YEL, Urine Clarity CLEAR, Urine pH 6.0, Ur Specific Matheny 1.015, Urine Protein NEG, Urine Ketones NEG, Urine Nitrite NEG, Urine Bilirubin NEG, Urine Urobilinogen 2.0 H, Ur Leukocyte Esterase NEG, Ur Microscopic EXAM NOT REQUIRED, Urine Hemoglobin NEG, Urine Glucose NEG 07/27/16 0600: Anion Gap 8, Estimated GFR 42 L, BUN/Creatinine Ratio 48.8 H, Phosphorus 5.0 H, Magnesium 2.3, CBC w Diff NO MAN DIFF REQ, RBC 3.65 L, MCV 75.8 L, MCH 24.7 L, RDW 22.1 H, MPV 7.8, Gran % 63.9, Lymphocytes % 21.6, Monocytes % 13.6 H, Eosinophils % 0.4, Basophils % 0.5, Absolute Granulocytes 1.6, Absolute Lymphocytes 0.5 L, Absolute Monocytes 0.3, Absolute Eosinophils 0, Absolute Basophils 0, PUBS MCHC 32.6 L 07/26/16 1000: Ref Lab Test Result Cancelled 07/26/16 0635: Anion Gap 10, Estimated GFR 42 L, BUN/Creatinine Ratio 48.8 H, Phosphorus 4.6 H, Magnesium 2.1, CBC w Diff NO MAN DIFF REQ, RBC 3.33 L, MCV 74.7 L, MCH 23.8 L, RDW 21.9 H, MPV 7.5, Gran % 59.1, Lymphocytes % 30.4, Monocytes % 10.0 H, Eosinophils % 0.1, Basophils % 0.4, Absolute Granulocytes 1.2 L, Absolute Lymphocytes 0.6 L, Absolute Monocytes 0.2, Absolute Eosinophils 0, Absolute Basophils 0, PUBS MCHC 31.9 L 07/25/161906: Stool Occult Blood Cancelled Recent Imaging Studies: CXR (07/26/2016) Congestive heart failure is slightly improved compared to 07/21 and the right pleural effusion has decreased in size. Assessment/Plan Assessment/Plan Mr. Lomas is an elderly male recently diagnosed with diabetes mellitus and placed on insulin therapy who again presents with progressive shortness of breath, orthopnea, cough, and lower extremity edema with clinical and radiographic evidence of heart failure, weakness, and worsening anemia. The etiology for his heart failure is presently unclear, but although he had normal left ventricular wall thickness observed on his most recent echocardiogram, he also had evidence of stage III diastolic dysfunction. He also has a recently diagnosed risk equivalent and has multiple risk factors for coronary artery disease which may be responsible for his presentation secondary to ischemia. The plan was for outpatient follow-up that was to include an imaging stress test , but we were hoping that he would clinically improve not only from his heart failure, but also the persistent aspiration that was occurring during his last hospitalization. If there was evidence of ischemia on stress testing we planned to have him undergo combined right and left heart cardiac catheterization. If there was no evidence of ischemia we planned to pursue a cardiac MRI to better assess the pericardium and possibly proceed with right heart catheterization. Clinically, he has improved with diuresis. His creatinine is unchanged, however , his BUN is slightly elevated. Continue to follow-up potassium and magnesium. Continue IV diuresis and negative fluid balance. Given suspicion of coronary artery disease would maintain hemoglobin above 8 g/ dl. Repeat CXR shows improved heart failure with decreased pleural effusion. When clinically improved, we'll perform an imaging stress test and make further recommendations based on those findings. Continue to check all stools for occult blood. Continue DVT prophylaxis. Continue telemetry? Yes (Being diuresed.)
--- NOTE | 2016-07-27 12:12 | PN- Cardiology ---
Subjective Subjective: Breathing continues to slowly improve with negative fluid balance. Objective Vital Signs and I&Os Vital Signs Date Time Temp Pulse Resp B/P Pulse O2 O2 Flow FiO2 Ox Delivery Rate 07/27 0938 67 98/60 07/27 0938 96.3 67 18 98/60 07/27 0837 96.3 65 18 100/62 98 Nasal 1.0L Cannula 07/27 0800 98 Nasal 2.0L Cannula 07/27 0016 97.9 64 20 118/60 96 Nasal Cannula 07/27 0000 94 Nasal 2.0L Cannula 07/26 2107 76 124/74 07/26 1600 Nasal 1.0L Cannula 07/26 1531 98.1 67 20 120/66 96 Intake & Output 07/27 1600 07/27 0800 07/27 0000 07/26 1600 07/26 0800 07/26 0000 Intake Total 200 480 470 240 350 Output Total 500 800 550 275 375 Balance -300 -320 -80 -35 -25 Intake, Blood 350 Product Intake, Oral 200 480 120 240 350 Output, Urine 500 800 550 275 375 Patient 178 lb 175 lb Weight Physical Exam: Well-developed, elderly male in no acute distress with nasal oxygen in place. Vital signs: See above. Lungs: Bibasilar crackles. Heart: S1, S2. Extremities: Bilateral lower extremity edema. Current Medications: Current Medications Sig/Lenny Start time Last Medication Dose Route Stop Time Status Admin Acetaminophen 650 MG .STK-MED ONE 07/26 2035 DC PO 07/26 2036 Acetaminophen 650 MG Q6P PRN 07/21 1700 AC 07/26 PO 2038 Acetaminophen/ 1 TAB Q6P PRN 07/21 1699 AC Hydrocodone Bitart PO Acetazolamide 250 MG Q48H 07/28 1000 AC PO Cyanocobalamin 1,000 MCG DAILY 07/21 1932 AC 07/27 PO 0936 Folic Acid 2 MG DAILY 07/22 1000 AC 07/27 PO 0936 Furosemide 20 MG BID 07/21 2199 AC 07/27 IV 0944 Heparin Sodium 5,000 UNIT Q8 07/22 1400 DC 07/26 (Porcine) SC 0627 Levothyroxine Sodium 0.2 MG DAILY 07/22 1000 AC 07/27 PO 0940 Lisinopril 20 MG DAILY 07/22 1000 AC 07/26 PO 0914 Metoprolol Tartrate 12.5 MG BID 07/22 2199 AC 07/27 PO 0938 Omeprazole 20 MG DAILY AC 07/22 1130 AC 07/27 PO 0610 Oxycodone HCl 10 MG Q6P PRN 07/21 1700 AC PO Potassium Chloride 40 MEQ ONCE ONE 07/27 0930 DC 07/27 PO 07/27 0931 0936 Prednisone 20 MG DAILY 07/22 1500 AC 07/27 PO 0936 Repaglinide 0.5 MG TIDAC 07/22 0800 AC 07/27 PO 0825 Results Last 48 Hrs of Labs/Mics: Laboratory Tests 07/27/16 0920: Ur Random Creatinine Pending, U Random Total Protein Pending 07/27/16 0920: Urine Color YEL, Urine Clarity CLEAR, Urine pH 6.0, Ur Specific [place] 1.015, Urine Protein NEG, Urine Ketones NEG, Urine Nitrite NEG, Urine Bilirubin NEG, Urine Urobilinogen 2.0 H, Ur Leukocyte Esterase NEG, Ur Microscopic EXAM NOT REQUIRED, Urine Hemoglobin NEG, Urine Glucose NEG 07/27/16 0600: Anion Gap 8, Estimated GFR 42 L, BUN/Creatinine Ratio 48.8 H, Phosphorus 5.0 H, Magnesium 2.3, CBC w Diff NO MAN DIFF REQ, RBC 3.65 L, MCV 75.8 L, MCH 24.7 L, RDW 22.1 H, MPV 7.8, Gran % 63.9, Lymphocytes % 21.6, Monocytes % 13.6 H, Eosinophils % 0.4, Basophils % 0.5, Absolute Granulocytes 1.6, Absolute Lymphocytes 0.5 L, Absolute Monocytes 0.3, Absolute Eosinophils 0, Absolute Basophils 0, PUBS MCHC 32.6 L 07/26/16 1000: Ref Lab Test Result Cancelled 07/26/16 0635: Anion Gap 10, Estimated GFR 42 L, BUN/Creatinine Ratio 48.8 H, Phosphorus 4.6 H, Magnesium 2.1, CBC w Diff NO MAN DIFF REQ, RBC 3.33 L, MCV 74.7 L, MCH 23.8 L, RDW 21.9 H, MPV 7.5, Gran % 59.1, Lymphocytes % 30.4, Monocytes % 10.0 H, Eosinophils % 0.1, Basophils % 0.4, Absolute Granulocytes 1.2 L, Absolute Lymphocytes 0.6 L, Absolute Monocytes 0.2, Absolute Eosinophils 0, Absolute Basophils 0, PUBS MCHC 31.9 L 07/25/161906: Stool Occult Blood Cancelled Assessment/Plan Assessment/Plan Mr. Lomas is an elderly male recently diagnosed with diabetes mellitus and placed on insulin therapy who again presents with progressive shortness of breath, orthopnea, cough, and lower extremity edema with clinical and radiographic evidence of heart failure, weakness, and worsening anemia. The etiology for his heart failure is presently unclear, but although he had normal left ventricular wall thickness observed on his most recent echocardiogram, he also had evidence of stage III diastolic dysfunction. He also has a recently diagnosed risk equivalent and has multiple risk factors for coronary artery disease which may be responsible for his presentation secondary to ischemia. The plan was for outpatient follow-up that was to include an imaging stress test , but we were hoping that he would clinically improve not only from his heart failure, but also the persistent aspiration that was occurring during his last hospitalization. If there was evidence of ischemia on stress testing we planned to have him undergo combined right and left heart cardiac catheterization. If there was no evidence of ischemia we planned to pursue a cardiac MRI to better assess the pericardium and possibly proceed with right heart catheterization. Clinically, he has improved with continued diuresis. His BUN/creatinine are unchanged today. Replete potassium and continue follow up magnesium. Continue IV diuresis and negative fluid balance. Given suspicion of coronary artery disease would maintain hemoglobin above 8 g/ dl. Repeat CXR shows improved heart failure with decreased pleural effusion. Will perform a pharmacologic stress test tomorrow and make further recommendations based on those findings. Continue to check all stools for occult blood. Continue DVT prophylaxis. Continue telemetry? Yes
[2016-07-27 16:27] VITALS: BP 102/58
[2016-07-28 00:21] VITALS: BP 104/62
[2016-07-28 07:51] LABS: ABSOLUTE BASOPHIL COUNT 0 /CUMM (0.0-0.2); ABSOLUTE EOSINOPHIL COUNT 0 /CUMM (0.0-0.7); ABSOLUTE GRANULOCYTE CT 2.7 /CUMM (1.4-6.5); ABSOLUTE LYMPH COUNT 0.5 /CUMM (1.2-3.4); ABSOLUTE MONOCYTE COUNT 0.4 /CUMM (0.10-0.60); BASOPHIL % 0.3 % (0.0-2.0); EOSINOPHIL % 0.3 % (0-5); GRANULOCYTE % 73.9 % (42.2-75.2); HEMATOCRIT 28.5 % (42-52); MEAN CORPUSCULAR HGB 24.4 PG (27.0-31.0); MEAN CORPUSCULAR HGB CONC 32.2 G/DL (33.0-37.0); MEAN CORPUSCULAR VOLUME 75.8 FL (80.0-94.0); MEAN PLATELET VOLUME 7.7 FL (7.4-10.4); PLATELET COUNT 64 /CUMM (130-400); RBC DISTRIBUTION WIDTH 22.8 % (11.5-14.5); RED BLOOD CELL CT 3.76 /CUMM (4.70-6.10); WHITE BLOOD CELL COUNT 3.6 /CUMM (4.8-10.8)
[2016-07-28 08:53] VITALS: BP 100/60
--- NOTE | 2016-07-28 09:33 | PN- Housestaff ---
[facility] 07/28/16 0932: Subjective Follow-up For: Weakness B/L LE edema Diastolic CHF Hypoxia and preexistant loculated pleural effusion Resistant pulmonary edema Tele-Events Since Last Visit: Sinus rhythm with first-degree heart block with OH interval 0.2 Rate 63-70 07/27 at 2 AM patient had 13 beats of V. tach Subjective: Patient was seen and examined this morning, he was lying comfortably on his bed looks better than yesterday, offered no complaints. He is on 1 L oxygen with saturation 96%. He denied any chest pain, palpitation, cough, shortness of breath, abdominal pain, nausea or vomiting, had 2 bowel movements of normal stool yesterday, no burning with urination. Review of Systems Constitutional: Denies: see HPI. Objective Last 24 Hrs of Vital Signs/I&O Vital Signs Date Time Temp Pulse Resp B/P Pulse O2 O2 Flow FiO2 Ox Delivery Rate 07/28 0853 97.9 66 20 100/60 97 Nasal 1.0L Cannula 07/28 0021 68 20 104/62 98 Nasal 1.0L Cannula 07/28 0000 Nasal 1.0L Cannula 07/27 2034 74 108/66 07/27 1627 97.4 69 20 102/58 96 Nasal 1.0L Cannula 07/27 1600 Nasal 1.0L Cannula Intake & Output 07/28 1600 07/28 0800 07/28 0000 Intake Total 610 Output Total 200 1200 750 Balance -200 -1200 -140 Intake, IV 10 Intake, Oral 600 Number 0 Bowel Movements Output, Stool 0 Output, Urine 200 1200 750 Patient 81.193 kg Weight Physical Exam General Appearance: Alert, Oriented X3, Cooperative, No Acute Distress Skin: No Rashes, No Breakdown, No Significant Lesion HEENT: Atraumatic, PERRLA, EOMI, Mucous Membr. moist/pink Neck: Supple Cardiovascular: Regular Rate, Normal S1, Normal S2, No Murmurs Lungs: Normal Air Movement, bilateral basal crackles Abdomen: Normal Bowel Sounds, Soft, No Tenderness Neurological: Normal Gait, Normal Speech, Strength at 5/5 X4 Ext, Normal Tone, Sensation Intact, Cranial Nerves 3-12 NL, Reflexes 2+ Extremities: No Clubbing, No Cyanosis, Normal Pulses, RLE pedal +2, LLE +1 pedal edema Assessment/Plan Assessment: Mr. Lomas is a 75 y/o M with chief complain of weakness for two days. He has PMHx of grade 3 diastolic dysfunction, prostate cancer s/p hormone and radiation therapy, rheumatoid arthritis, hypothyroidism, R-sided CVA, cardiac tamponade s/ p pericardial window, HLD, HTN and T2DM on prandin 0.5 mg before meals, no insulin per Dr. Hutchison, bilateral loculated pleural effusion, emphysema, baseline hypercarbia, abnormal swallowing test, Hx of elevated globulin gap with exclusion to multiple myeloma. Problem list -CHF exacerbation -HTN and HLP -DM type 2 -Rheumatoid arthritis on methotrexate -Leukopenia, thrombocytopenia -Chronic anemia -Hypothyroidism -Elevated globulin gap Plan #CHF exacerbation -patient has history of CHFpEF -Patient presented with history of weakness for 2 days, he continued to be lethargic. Weakness could be multifactorial, anemia, congestive heart failure with pulmonary complication -Lasix 20 mg BID IV , keep gentle hydration given worsening kidney function -DC Diamox 250 qod, use diamox only if HCO3 more than 36 or if K more than 4 -Repeated chest x-ray 07/26 showed slight improvement in the congestive heart failure with decrease in the size of right pleural effusion and compared to the study on 07/21 -Patient has multiple risk factors and risk equivalent for coronary artery disease, maintain hemoglobin above 8 g/dL, patient received 1 unit of blood today -Patient had dipyridamole stress test today -Guaiac all stool -Maintain potassium above 4 and magnesium above 2 -Maintain negative fluid balance -80 -TRC TID and PRN -BiPAP, keep off BiPAP and the patient is awake and respond appropriately -Aspiration precaution, patient has abnormal barium swallowing test -Pulmonary consultation obtained followed recommendations for the persistent small bilateral pleural effusion and interstitial edema -Repeat ABG this evening if the patient continue to be sleepy and lethergic #Worsening kindeny function -The patient BUN/Cr 75/1.6 -remained stable -Nephrology consultation was obtained -Cuurent creatinine level could be acceptable given the patient CHFpEF and respiratory condition -Renal US in 07/23 1. No evidence of hydronephrosis. 2. Small parapelvic mid right renal cyst. 3. Otherwise unremarkable study. -Urine protein to creatinine ratio is 1 within normal -Urine random creatinine 73, random total protein 4.8 -Serum protein electrophoresis was obtained during last admission in June with negative results for mononuclear proteins -Recommendation to continue current diuretic regimen for with caution -Diamox therapy based on HCO3 and K daily -Continue lisinopril 20 mg daily #Elevated troponin -Patient had 2 runs of v tach on 07/27 and 07/23 -Troponin went up from 0.1 to 0.14 and 0.16 which came down to 0.12, no EKG changes, no chest pain reported by the patient. -Cardiology on board, possible plan for stress test and right and left heart catheterization -HTN and HLP - lisinopril 20 mg daily, metoprolol tartrate 12.5 mg BID #DM type 2 -prandin 0.5 mg before meals, no insulin -Patient is very sensitive to insulin -HGA1c 8.3 #Rheumatoid arthritis on methotrexate -Hold methotrexate -Decrease prednisone to 20 mg daily #Leukopenia, thrombocytopenia -Patient is on methotrexate for RA -Consult obtained with Dr. Nevarez -Recommendation to continue hold methotrexate -Reticulocyte count is 2.3 -Lactate dehydrogenase WNL -Anderson test +1 with negative LDH and bilrubin. Low suspicion for hemolytic anemia -Recommendation to careful red blood cell transfusion and hem occult stool -Platelet 64, will discontinue heparin subcutaneous #Chronic anemia -Patient received 1 unit of blood to keep hemoglobin above 8 -Continue Folic acid and Vit B 12 -continue ferrous 325 mg daily #Hypothyroidism -Continue synthroid 0.2 MG daily -TSH and T4:WNL #Elevated globulin gap -Recent 07/19 Protein electrophoresis showed 17% albumin, alpha 1 globulin 2%, alpha 2 globulin 7%, beta globulin 27% , gammaglobulin 47% - Consistent Carbohydrate 3 chopped and thick nectar DVT PPx ALPs Code Full Problem List: 1. Essential hypertension 2. Hyperlipidemia 3. Hypothyroidism 4. Rheumatoid arthritis 5. Pericardial effusion 6. Acute diastolic CHF (congestive heart failure) Pain Ratin Pain Location: n/a Pain Goal: Pain 4 or less Pain Plan: see medication Tomorrow's Labs & Rationales: CBC, CMP VICTORINO OBRIEN MD 07/28/16 4920: Attending MD Review Statement Attending Statement Attending Statement: examined this patient, discuss w/resident/PA/SERVICES REP, agreed w/resident/PA/SERVICES REP, discussed with family, reviewed EMR data (avail), discussed with nursing, discussed with case mgmt, reviewed images, amended to note Attending Assessment/Plan: The patient was seen and discussed with house staff. Reviewed Cardiolite images and no ischemia noted (only IW/apical attenuation artifacts). Patient continues to improve.
--- NOTE | 2016-07-28 10:54 | PN- Pulmonary ---
Subjective HPI/Critical Care Issues: More awake and better Appetite is back fatigue imroved Objective Current Medications: Current Medications Sig/Lenny Start time Last Medication Dose Route Stop Time Status Admin Acetaminophen 650 MG Q6P PRN 07/21 1700 AC 07/26 PO 2039 Acetaminophen/ 1 TAB Q6P PRN 07/21 1700 AC Hydrocodone Bitart PO Acetazolamide 250 MG Q48H 07/28 1000 CAN PO Cyanocobalamin 1,000 MCG DAILY 07/21 1932 AC 07/27 PO 0936 Dipyridamole 45 MG ONE ONE 07/28 1100 AC Dextrose/Water 31 ML IV 07/28 1109 Folic Acid 2 MG DAILY 07/22 1000 AC 07/27 PO 0936 Furosemide 20 MG BID 07/21 2200 AC 07/27 IV 2034 Levothyroxine Sodium 0.2 MG DAILY 07/22 1000 AC 07/27 PO 0940 Lisinopril 20 MG DAILY 07/22 1000 AC 07/26 PO 0914 Metoprolol Tartrate 12.5 MG BID 07/22 2200 AC 07/27 PO 2034 Omeprazole 20 MG DAILY AC 07/22 1130 AC 07/27 PO 0610 Oxycodone HCl 10 MG Q6P PRN 07/21 1700 AC PO Prednisone 20 MG DAILY 07/22 1500 AC 07/27 PO 0936 Repaglinide 0.5 MG TIDAC 07/22 0800 AC 07/27 PO 1711 Vital Signs & I&O Last 24 Hrs of Vitals and I&O: Vital Signs Date Time Temp Pulse Resp B/P Pulse O2 O2 Flow FiO2 Ox Delivery Rate 07/28 0853 97.9 66 20 100/60 97 Nasal 1.0L Cannula 07/28 0021 68 20 104/62 98 Nasal 1.0L Cannula 07/28 0000 Nasal 1.0L Cannula 07/27 203 74 108/66 07/27 1627 97.4 69 20 102/58 96 Nasal 1.0L Cannula 07/27 1600 Nasal 1.0L Cannula Intake & Output 07/28 1600 07/28 0800 07/28 0000 Intake Total 610 Output Total 1200 750 Balance -1200 -140 Intake, IV 10 Intake, Oral 600 Output, Urine 1200 750 Patient 179 lb Weight Impression/Plan Impression/Plan Impression/Plan: Physical Exam: Well-developed, well-nourished elderly male, less lethargic than yesterday Appeared short of breath Vital signs: See above. HEENT: Normocephalic, atraumatic, EOMI, moist mucous membranes. Neck: No JVD, no bruits. Lungs: Bibasilar crackles. Mild wheezing Heart: S1, S2 with no murmur, gallop, or rub appreciated. PMI fifth ICS at [facility]. Abdomen: Soft, nontender, positive bowel sounds. Extremities: Trace bilateral lower extremity edema. Neurological exam patient was mildly lethargic but easily arousable. SIGNIFICANT DATA Previous echocardiogram showed significant mild anterior wall hypokinesis and restrictive filling pattern with moderate pulmonary hypertension Chest x-ray done showed bilateral pleural effusion with persistent diffuse interstitial edema stable opacity with loculated fluid in the chest which is not changed from before He has chronically elevated creatinine bicarbonate is 38 anion gap was normal White count was low at 2.9 platelets are low at 116 is chronically anemic with hemoglobin of 9 with MCV of 75 is INR was 1.77 his previous immunoelectrophoresis showed chronic inflammatory process his anti-CCP was very high no monoclonal antibody seen in his electrophoresis His CT chest reviewed which showed congestive heart failure with loculated pleural effusion small pericardial effusion also. IMPRESSION This is a gentleman with history of rheumatoid arthritis on methotrexate hence immunosuppressed, Previous sig pericardial effusion prob related to RA s/p window with neg cytology and cultures for any malignancy and infections, Chronic loculated effusion both sides due to inflammatory path due to RA, significant diastolic heart disease with thickened pericardium with prob restrictive physiology, diabetes, coronary artery disease, now has the following issues * Resolved Acute on chronic hypercarbic respiratory failure due to probable obesity hypoventilation, persistent heart failure with central apnea clinically. Did respond to BiPAP initially now Better * Resolving pulmonary edema significant diastolic dysfunction consistent with restrictive hemodynamics. * CKD with mild worsening of renal function * He has had previous history of pericardial window and he has thickened pericardium this may be also causing constictive pericaridal path. THis is related to sig RA with sig serositis * On off aspiration in the past * Bilateral loculated pleural effusion in the fissure related to inflammatory process, and the pathology is prob the same as his the pathology which caused his pericardial effusion i.e. rheumatoid arthritis. His TB cultures have been negative in the past. There is no clear evidence suggestive of empyema or significant pulmonary malignancy, cytology neg from pericardial window * Prior granulomatous lung disease with mild emphysema * Sig microcytic anemia with prob anemia of chronic disease, Previous history of hemolytic anemia * Mild pancytopenia rule out myelodysplasia * Sig history of RHeumatoid and hence immunosuppressed, was on MTX. SIne methrotrexate has been stopped his fatigue and strength seems to have improved. * Chronic kidney disease stage II, with diabetes with mild proteinuria and hypertension * History of prostate ca REC Continue gentle diuresis, watch his creatinine. Keep his potassium more than 4 As he has improved, will use diamox only if bicarb rises to more than 36 only after his potassium is more than 4. Lasix per renal and cardio Anticoagulation for prevention of DVT, subcutaneous heparin Hold methotrexate, Pt may need to be off this till his fatigue and asthenia improves Cont prednisone and decrease further to 10 mg and keep on 10 mg Continue folic acid B12 1000 international units daily
--- NOTE | 2016-07-28 12:57 | NUR ---
AT 1250: patient back from test.
--- NOTE | 2016-07-28 13:59 | NUR ---
AT 1355: patient off unit for second part of stress test.
--- NOTE | 2016-07-28 14:50 | IV DIPYRIDAMOLE NUCLEAR STRESS ---
Clinical Diagnosis: Heart Failure Wine Sales Representative: Marlon Bean IV DIPYRIDAMOLE INFUSED: 45 mg IV AMINOPHYLLINE INFUSED: 0 mg PATIENT WEIGHT: 178 lbs INTERPRETATION: The patient's baseline EKG revealed sinus rhythm, first degree atrioventricular block, intraventricular condution delay, and nondiagnostic inferolateral ST-T wave abnormalities at 66 BPM. Baseline B/P 110/70. The patient received 45 mg of dipyridamole infused intravenously over a 4 minute period. TC-99M or Myoview was injected after dipyridamole infusion. The patient tolerated the infusion well. There were no EKG changes seen following pharmacologic infusion when compared to the abnromal baseline. Arrhythmias: Multiple atrial premature contractions and occasional ventricular premature contractions. IMPRESSION: The test was supervised by the interpreting Musical Instrument Mechanic, who was in attendance during the entire test. No EKG evidence of stress induced myocardial ischemia. See separately dictated Nuclear Report.
[2016-07-28 15:30] VITALS: BP 108/64
--- NOTE | 2016-07-28 16:11 | NUCLEAR MEDICINE REPORT ---
PERSANTINE STRESS AND RESTING SPECT MYOCARDIAL PERFUSION IMAGING STUDY WITH GATED SPECT IMAGES: CLINICAL INDICATION: Ischemia. PROCEDURE: Regional myocardial perfusion was assessed using a 1 day protocol. Stress images were obtained on 07/28/2016 following the intravenous administration of 18.3 mCi Tc 99m Myoview. Stress consisted of 45 mg Persantine given intravenously. Following the sestamibi injection no aminophylline was given intravenously. Rest images were obtained 07/28/2016 following the intravenous administration of 30.3 mCi Technetium 99m Myoview. Single photon emission tomographic (SPECT) images were obtained. SPECT images were acquired in a 64 x 64 matrix of 64 projections over 180 degrees. These were reconstructed into standard short axis, horizontal and vertical long axis cardiac projections. FINDINGS: The post stress images show the left ventricular chamber to be normal in size. There is a mild diffuse decrease in activity in the inferior wall. The activity in the other baeza appears normal. Review of the raw acquired projections show some attenuation of the inferior wall by the adjacent diaphragm which is likely responsible for this appearance. The rest images are not significantly changed from the post stress images. The images were obtained using a gated SPECT technique, which permits visualization of wall motion and calculation of the left ventricular ejection fraction. No left ventricular wall motion abnormalities are present. In particular, the inferior wall shows normal motion. The left ventricular chamber is normal in size. The calculated left ventricular ejection fraction is 59% on the stress study. No previous study is available for comparison. IMPRESSION: No definite perfusion abnormalities are noted. Decreased activity in the inferior wall is likely due to attenuation by the adjacent diaphragm. No regions of reversible ischemia are visualized. Left ventricular wall motion and ejection fraction are normal.
--- NOTE | 2016-07-28 17:32 | PN- Cardiology ---
Subjective Subjective: Breathing continues to improve with diuresis. Objective Vital Signs and I&Os Vital Signs Date Time Temp Pulse Resp B/P Pulse O2 O2 Flow FiO2 Ox Delivery Rate 07/28 1530 97.4 62 20 108/64 98 Nasal 1.0L Cannula 07/28 0853 97.9 66 20 100/60 97 Nasal 1.0L Cannula 07/28 0021 68 20 104/62 98 Nasal 1.0L Cannula 07/28 0000 Nasal 1.0L Cannula 07/27 2034 74 108/66 Intake & Output 07/28 1600 07/28 0800 07/28 0000 07/27 1600 07/27 0800 07/27 0000 Intake Total 610 360 200 480 Output Total 200 1200 750 500 800 Balance -200 -1200 -140 360 -300 -320 Intake, IV 10 Intake, Oral 600 360 200 480 Number 0 Bowel Movements Output, Stool 0 Output, Urine 200 1200 750 500 800 Patient 179 lb 178 lb Weight Physical Exam: Well-developed, elderly male in no acute distress with nasal oxygen in place. Vital signs: See above. Lungs: Bibasilar crackles. Heart: S1, S2. Extremities: Bilateral lower extremity edema. Current Medications: Current Medications Sig/Lenny Start time Last Medication Dose Route Stop Time Status Admin Acetaminophen 650 MG Q6P PRN 07/21 1700 AC 07/26 PO 2038 Acetaminophen/ 1 TAB Q6P PRN 07/21 1700 DC Hydrocodone Bitart PO Cyanocobalamin 1,000 MCG DAILY 07/21 193 AC 07/28 PO 1247 Dipyridamole 45 MG ONE ONE 07/28 1100 DC Dextrose/Water 31 ML IV 07/28 1109 Folic Acid 2 MG DAILY 07/22 1000 AC 07/28 PO 1246 Furosemide 20 MG BID 07/21 IV 1246 Levothyroxine Sodium 0.2 MG DAILY 07/22 1000 AC 07/28 PO 1248 Lisinopril 20 MG DAILY 07/22 1000 AC 07/28 PO 1249 Metoprolol Tartrate 12.5 MG BID 07/22 PO 1247 Omeprazole 20 MG DAILY AC 07/22 1130 AC 07/27 PO 0610 Oxycodone HCl 10 MG Q6P PRN 07/21 1700 DC PO Patient Medication 1 ED .STK-MED ONE 07/28 1345 DC Teaching ED 07/28 1346 Prednisone 10 MG DAILY 07/29 1000 AC PO Prednisone 20 MG DAILY 07/22 1500 DC 07/27 PO 0936 Repaglinide 0.5 MG TIDAC 07/22 0800 AC 07/28 PO 1247 Results Last 48 Hrs of Labs/Mics: Laboratory Tests 07/28/16 0605: Anion Gap 9, Estimated GFR 42 L, BUN/Creatinine Ratio 46.9 H, CBC w Diff NO MAN DIFF REQ, RBC 3.76 L, MCV 75.8 L, MCH 24.4 L, RDW 22.8 H, MPV 7.7, Gran % 73.9, Lymphocytes % 14.1 L, Monocytes % 11.4 H, Eosinophils % 0.3, Basophils % 0.3, Absolute Granulocytes 2.7, Absolute Lymphocytes 0.5 L, Absolute Monocytes 0.4, Absolute Eosinophils 0, Absolute Basophils 0, PUBS MCHC 32.2 L 07/27/16 0920: Ur Random Creatinine 73, U Random Total Protein 4.8, Protein/Creatinin Ratio 0.1 07/27/16 0920: Urine Color YEL, Urine Clarity CLEAR, Urine pH 6.0, Ur Specific [place] 1.015, Urine Protein NEG, Urine Ketones NEG, Urine Nitrite NEG, Urine Bilirubin NEG, Urine Urobilinogen 2.0 H, Ur Leukocyte Esterase NEG, Ur Microscopic EXAM NOT REQUIRED, Urine Hemoglobin NEG, Urine Glucose NEG 07/27/16 0600: Anion Gap 8, Estimated GFR 42 L, BUN/Creatinine Ratio 48.8 H, Phosphorus 5.0 H, Magnesium 2.3, CBC w Diff NO MAN DIFF REQ, RBC 3.65 L, MCV 75.8 L, MCH 24.7 L, RDW 22.1 H, MPV 7.8, Gran % 63.9, Lymphocytes % 21.6, Monocytes % 13.6 H, Eosinophils % 0.4, Basophils % 0.5, Absolute Granulocytes 1.6, Absolute Lymphocytes 0.5 L, Absolute Monocytes 0.3, Absolute Eosinophils 0, Absolute Basophils 0, PUBS MCHC 32.6 L Recent Imaging Studies: pharmacologic (Dipyridamole) stress test (07/28/2016) No definite perfusion abnormalities are noted. Decreased activity in the inferior wall is likely due to attenuation by the adjacent diaphragm. No regions of reversible ischemia are visualized. Left ventricular wall motion and ejection fraction are normal. Assessment/Plan Assessment/Plan Mr. Lomas is an elderly male recently diagnosed with diabetes mellitus and placed on insulin therapy who again presents with progressive shortness of breath, orthopnea, cough, and lower extremity edema with clinical and radiographic evidence of heart failure, weakness, and worsening anemia. The etiology for his heart failure is presently unclear, but although he had normal left ventricular wall thickness observed on his most recent echocardiogram, he also had evidence of stage III diastolic dysfunction. He also has a recently diagnosed risk equivalent and has multiple risk factors for coronary artery disease which may be responsible for his presentation secondary to ischemia. The plan was for outpatient follow-up that was to include an imaging stress test , but we were hoping that he would clinically improve not only from his heart failure, but also the persistent aspiration that was occurring during his last hospitalization. As there was no evidence of ischemia on today's pharmacologic stress test we will plan to pursue a cardiac MRI to better assess the pericardium and possibly proceed with right heart catheterization. Clinically, he has improved with diuresis. His creatinine is unchangedhis BUN has slightly improved. Continue to follow-up potassium and magnesium. Continue IV diuresis and negative fluid balance. Repeat CXR shows improved heart failure with decreased pleural effusion. Continue to check all stool for occult blood. Continue DVT prophylaxis. Continue telemetry? Yes
[2016-07-28 22:22] VITALS: BP 110/60
[2016-07-28 22:28] VITALS: BP 110/60
[2016-07-29 08:13] LABS: ABSOLUTE BASOPHIL COUNT 0 /CUMM (0.0-0.2); ABSOLUTE EOSINOPHIL COUNT 0 /CUMM (0.0-0.7); ABSOLUTE GRANULOCYTE CT 2.4 /CUMM (1.4-6.5); ABSOLUTE LYMPH COUNT 0.7 /CUMM (1.2-3.4); ABSOLUTE MONOCYTE COUNT 0.3 /CUMM (0.10-0.60); BASOPHIL % 0.3 % (0.0-2.0); EOSINOPHIL % 0.8 % (0-5); HEMATOCRIT 28.7 % (42-52); MEAN CORPUSCULAR HGB 24.4 PG (27.0-31.0); MEAN CORPUSCULAR HGB CONC 32.6 G/DL (33.0-37.0); MEAN CORPUSCULAR VOLUME 74.9 FL (80.0-94.0); MEAN PLATELET VOLUME 7.7 FL (7.4-10.4); RBC DISTRIBUTION WIDTH 22.9 % (11.5-14.5); RED BLOOD CELL CT 3.84 /CUMM (4.70-6.10); WHITE BLOOD CELL COUNT 3.5 /CUMM (4.8-10.8)
--- NOTE | 2016-07-29 08:13 | Discharge Summary ---
Visit Information Visit Dates Admission Date: 07/22/16 Discharge Date: 07/30/16 Hospital Course Course Attending Physician: VICTORINO OBRIEN MD Primary Care Physician: ALICE BARNHART MD Consulting Request: Consulting Specialty: Cardiology Consulting Physician: [place] [facility] Course: Patient is 75-year-old male with past medical history significant for grade 3 diastolic dysfunction, prostate cancer status post hormonal and radiation therapy, hypothyroidism, rheumatoid arthritis on methotrexate, right-sided CVA, history of cardiac tamponade status post pericardial window, hyper tension, hyperlipidemia and type 2 diabetes mellitus with recent admission at [facility] from 07/01/2016 to 07/11/2016 with CHF exacerbation and aspiration pneumonia and was discharged home. Presnted to ED at 07/21/2016 with a c/o of weakness and lethargy. On admission vitals signs were temperature 97.9, pulse 83, respiratory rate 22, blood pressure 131/74 mmHg Admission labs were WBC count 2.9, hemoglobin 9.0, hematocrit 28.8, platelet count 116, sodium 140, potassium 3.8, carbon dioxide 38, BUN 34, creatinine 1.5, total bilirubin 1.6, proBNP 8040. Chest x-ray showed Persistent small bilateral pleural effusions with increased fluid tracking along the right lateral chest wall. Persistent diffuse interstitial markings most suggestive of edema. Stable opacity overlying the right mid to upper lung suggestive of loculated fluid as seen on prior CT. EKG showed a circular heart rate with sinus rhythm and multiple PVCs, no significant changes from previous EKG Physical examination Oriented 3 but slightly drowsy and lethargic Head atraumatic Neck supple no JVD Chest bilateral basilar crackles especially right lower lobe and decreased air entry on left lower lobe and wheezing Abdomen normal bowel sounds Bilateral mild to moderate lower extremity edema Neuro no neurological deficit noted He was admitted to [facility] floor 2/2 following problems Problem list -CHF exacerbation -HTN and HLP -DM type 2 -Rheumatoid arthritis on methotrexate -Leukopenia, thrombocytopenia -Chronic anemia -Hypothyroidism -Elevated globulin gap #CHF exacerbation -patient has history of CHFpEF -Patient has PMH of cardic tamponade s/p pericardial window, patient has normal left ventricular function with evidence of stage III diastolic dysfunction -Patient presented with history of weakness for 2 days, he continued to be lethargy Weakness could be multifactorial, anemia, congestive heart failure with pulmonary complication -Dipyridamole stress test was obtained IMPRESSION: No definite perfusion abnormalities are noted. Decreased activity in the inferior wall is likely due to attenuation by the adjacent diaphragm. No regions of reversible ischemia are visualized. Left ventricular wall motion and ejection fraction are normal. -Lasix 20 mg BID IV , gentle hydration given worsening kidney function -Continue Lasix 40 mg by mouth twice a day after discharge -K Dur 20 mg daily, keep potassium more than 4 and magnesium more than 2 -Pulmonary consultation obtained followed recommendations for the persistent small bilateral pleural effusion and interstitial edema -Repeated chest x-ray 07/29 showed similar findings that was observed on 2016 of cardiomegaly and pulmonary vascular congestion, mild interstitial edema and small pleural effusions bilateral. There is mild bi-basilar atelectasis with no acute pulmonary consultation. -CT chest without contrast was obtained 07/29 IMPRESSION: 1. Coronary artery atherosclerotic disease, cardiomegaly and mild pulmonary edema, improved compared to 07/05/2016. There are persistent loculated pleural effusions along the major fissures and medial right lung base. 2. Stable dilatation of the tortuous atherosclerotic aorta. The ascending thoracic aorta measures up to 4.2 cm transverse, 4.3 cm AP diameter. No new aortic findings. 3. Loculated right pericardial effusion is unchanged. 4. Old granulomatous disease. Multiple stable pulmonary nodules are present in both lungs 5. Cholelithiasis. 6. Small volume of ascitic fluid is present within the visualized upper abdomen. -Patient has multiple risk factors and risk equivalent for coronary artery disease, maintain hemoglobin above 8 g/dL, patient received 1 unit of blood -TRC TID and PRN -BiPAP, keep off BiPAP and the patient is awake and respond appropriately -Aspiration precaution, patient has abnormal barium swallowing test #Worsening kindeny function -The patient BUN/Cr on discharge 66/1.6 -Nephrology consultation was obtained -Cuurent creatinine level could be acceptable given the patient CHFpEF and respiratory condition -Renal US in 07/23 1. No evidence of hydronephrosis. 2. Small parapelvic mid right renal cyst. 3. Otherwise unremarkable study. -Urine protein to creatinine ratio is 1 within normal -Urine random creatinine 73, random total protein 4.8 -Serum protein electrophoresis was obtained during last admission in June with negative results for mononuclear proteins -Continue lisinopril 20 mg daily #Elevated troponin -Patient had 2 runs of v tach on 07/27 and 07/23 -Troponin went up from 0.1 to 0.14 and 0.16 which came down to 0.12, no EKG changes, no chest pain reported by the patient. -Cardiology consulation was obtained, plan to obtain CT chest today and possible cardiac MRI to rule out pericardial abnormality and right side heart catheterization -HTN and HLP - lisinopril 20 mg daily, metoprolol tartrate 12.5 mg BID #DM type 2 -prandin 0.5 mg before meals, no insulin -Patient is very sensitive to insulin -HGA1c 8.3 #Rheumatoid arthritis on methotrexate -Hold methotrexate -Continue prednisone 10 mg daily -Patient was instructed to follow-up with aviation electrical technician after discharge #Leukopenia, thrombocytopenia -Patient was on methotrexate for RA -Hematology/Oncology consulation was obtained -Recommendation to continue hold methotrexate -Reticulocyte count is 2.3 -Lactate dehydrogenase WNL -Anderson test +1 with negative LDH and bilrubin. Low suspicion for hemolytic anemia -Recommendation to careful red blood cell transfusion and hem occult stool -Platelet 55, heparin subcutaneous was discountinued #Chronic anemia -Patient received 1 unit of blood to keep hemoglobin above 8 -Continue Folic acid and Vit B 12 -continue ferrous 325 mg daily #Hypothyroidism -Continue synthroid 0.2 MG daily -TSH and T4:WNL #Elevated globulin gap -Recent 07/19 Protein electrophoresis showed 17% albumin, alpha 1 globulin 2%, alpha 2 globulin 7%, beta globulin 27% , gammaglobulin 47% - Consistent Carbohydrate 3 chopped and thick nectar DVT PPx ALPs Code Full Consultation cardiology, pulmonology, nephrology, hemp/ oncology Allergies: Coded Allergies: aspirin (Mild, ULCER 10/13/15) Disposition Summary Disposition Principal Diagnosis: CHF exacerbation Additional Diagnosis: Leukopenia, thrombocytopenia, anemia Discharge Disposition: home or self care Discharge Instructions General Discharge Information Code Status: Full Code Patient's Diet: Consistent Carbohydrate 3 chopped and thick nectar Patient's Activity: As tolerated Follow-Up Instructions/Appts: -Please follow-up with your PCP within 1 week after discharge -Please follow-up with freight agent Dr. Chapman within 1 week after discharge -Please follow-up with cash controller Grupo Grier MD within 1 week after discharge -Please follow up with aviation electrical technician after discharge Medications at Discharge Discharge Medications: Stop taking the following medications: Methotrexate (Methotrexate) 2.5 MG TABLET ORAL EVERY MONDAY Continue taking these medications: Levothyroxine Sodium (Levothyroxine Sodium) 0.2 MG TAB 1 Tablet ORAL DAILY Enalapril Maleate (Enalapril Maleate) 20 MG TAB 1 Tablet ORAL DAILY Comments: given 08/12/15 @ 1000 Folic Acid (Folic Acid) 1 MG TABLET 2 Milligram ORAL DAILY Comments: Last Taken: 07/30/16 Time: 11:30 AM Repaglinide (Prandin) 0.5 MG TABLET 1 Tablet ORAL 3 TIMES DAILY BEFORE MEALS Days = 30 Instructions: Hold prandin if you skip a meal Comments: Last Taken: 07/30/16 Time: 12:00 PM Metoprolol Tartrate (Metoprolol Tartrate) 25 MG TABLET 12.5 Milligram ORAL TWICE DAILY Days = 30 Comments: Last Taken: 07/30/16 Time: 11:30 AM Furosemide (Lasix) 40 MG TABLET 1 Tablet ORAL TWICE DAILY Comments: Last Taken: 07/30/16 Time: 11:30 AM Start taking the following new medications: Omeprazole (Omeprazole) 20 MG CAPSULE.DR 1 Capsule ORAL DAILY Qty = 30 No Refills Comments: Last Taken: 07/30/16 Time: 6:30 AM Prednisone (Prednisone) 10 MG TABLET 1 Tablet ORAL TWICE DAILY Qty = 30 No Refills Comments: Last Taken: 07/30/16 Time: 11:30 AM Copies To: ALAN TELLES,GRUPO Ivey; PAU TELLES,AISHWARYA SCong; BRONWYN TELLES,ALICE; SHANTEL TELLES,SHELBI BCong; JAIME TELLES,RAFAELA Guerrier Attending MD Review Statement Documenting Attending: VICTORINO OBRIEN MD Other Findings: The patient was seen and agree with the plan of care upon discharge.
--- NOTE | 2016-07-29 08:46 | PN- Housestaff ---
GLEN [facility]LLES,[facility] 07/29/16 0846: Subjective Follow-up For: Weakness B/L LE edema Diastolic CHF Hypoxia and preexistant loculated pleural effusion Resistant pulmonary edema Tele-Events Since Last Visit: Sinus rhythm, heart rate 70s to 80s Patient had 7 beats of V. tach at 4:45 AM Subjective: Patient was seen and examined this morning, he was sitting comfortably on the chair having his breakfast with no signs of acute distress. Patient denied any chest pain, palpitation, abdominal pain, nausea or vomiting, diarrhea. He endorses feeling better, vital signs are stable. No overnight events reported by the patient or the nurse. Review of Systems Constitutional: Denies: see HPI. Objective Last 24 Hrs of Vital Signs/I&O Vital Signs Date Time Temp Pulse Resp B/P Pulse O2 O2 Flow FiO2 Ox Delivery Rate 07/29 0933 68 120/60 07/29 0933 68 120/60 07/29 0853 97.5 68 20 120/60 100 Nasal 1.0L Cannula 07/29 0800 100 Nasal 1.0L Cannula 07/29 0000 Nasal 1.0L Cannula 07/28 2228 97.8 73 20 110/60 97 Nasal 2.0L Cannula 07/28 2222 75 110/60 07/28 2221 75 110/60 07/28 1600 Nasal 1.0L Cannula 07/28 1530 97.4 62 20 108/64 98 Nasal 1.0L Cannula Intake & Output 07/29 1600 07/29 0800 07/29 0000 Intake Total 100 600 Output Total 400 600 Balance -300 0 Intake, Oral 100 600 Output, Urine 400 600 Patient 77.564 kg Weight Physical Exam General Appearance: Alert, Oriented X3, Cooperative, No Acute Distress Skin: No Rashes, No Breakdown, No Significant Lesion HEENT: Atraumatic, PERRLA, EOMI, Mucous Membr. moist/pink Neck: Supple Cardiovascular: Regular Rate, Normal S1, Normal S2, No Murmurs Lungs: Clear to Auscultation, Normal Air Movement Abdomen: Normal Bowel Sounds, Soft, No Tenderness Neurological: Normal Gait, Normal Speech, Strength at 5/5 X4 Ext, Normal Tone, Sensation Intact, Cranial Nerves 3-12 NL, Reflexes 2+ Extremities: No Clubbing, No Cyanosis, bilteral +1 pedal edema Vascular: Normal Pulses Assessment/Plan Assessment: Mr. Lomas is a 75 y/o M with chief complain of weakness for two days. He has PMHx of grade 3 diastolic dysfunction, prostate cancer s/p hormone and radiation therapy, rheumatoid arthritis, hypothyroidism, R-sided CVA, cardiac tamponade s/ p pericardial window, HLD, HTN and T2DM on prandin 0.5 mg before meals, no insulin per Dr. Hutchison, bilateral loculated pleural effusion, emphysema, baseline hypercarbia, abnormal swallowing test, Hx of elevated globulin gap with exclusion to multiple myeloma. Problem list -CHF exacerbation -HTN and HLP -DM type 2 -Rheumatoid arthritis on methotrexate -Leukopenia, thrombocytopenia -Chronic anemia -Hypothyroidism -Elevated globulin gap Plan #CHF exacerbation -patient has history of CHFpEF -Patient has PMH of cardic tamponade s/p pericardial window, patient has normal left ventricular function with evidence of stage III diastolic dysfunction -Patient presented with history of weakness for 2 days, he continued to be lethargic. Weakness could be multifactorial, anemia, congestive heart failure with pulmonary complication -Dipyridamole stress test was obtained yesterday IMPRESSION: No definite perfusion abnormalities are noted. Decreased activity in the inferior wall is likely due to attenuation by the adjacent diaphragm. No regions of reversible ischemia are visualized. Left ventricular wall motion and ejection fraction are normal. -Lasix 20 mg BID IV , keep gentle hydration given worsening kidney function -DC Diamox 250 qod, use diamox only if HCO3 more than 36 or if K more than 4 -Start K Dur 20 mg daily, keep potassium more than 4 and magnesium more than 2 -Repeated chest x-ray 07/29 showed similar findings that was observed on 2016 of cardiomegaly and pulmonary vascular congestion, mild interstitial edema and small pleural effusions bilateral. There is mild bi-basilar atelectasis with no acute pulmonary consultation. -CT chest without contrast was ordered for today, plan for possible cardiac MRI to rule out pericardial abnormality and right side heart catheterization -Patient has multiple risk factors and risk equivalent for coronary artery disease, maintain hemoglobin above 8 g/dL, patient received 1 unit of blood -Guaiac all stool -Maintain negative fluid balance -1400 -TRC TID and PRN -BiPAP, keep off BiPAP and the patient is awake and respond appropriately -Aspiration precaution, patient has abnormal barium swallowing test -Pulmonary consultation obtained followed recommendations for the persistent small bilateral pleural effusion and interstitial edema #Worsening kindeny function -The patient BUN/Cr is slightly improving 65/1.5 -Nephrology consultation was obtained -Cuurent creatinine level could be acceptable given the patient CHFpEF and respiratory condition -Renal US in 07/23 1. No evidence of hydronephrosis. 2. Small parapelvic mid right renal cyst. 3. Otherwise unremarkable study. -Urine protein to creatinine ratio is 1 within normal -Urine random creatinine 73, random total protein 4.8 -Serum protein electrophoresis was obtained during last admission in June with negative results for mononuclear proteins -Recommendation to continue current diuretic regimen for with caution -Diamox therapy based on HCO3 and K daily -Continue lisinopril 20 mg daily #Elevated troponin -Patient had 2 runs of v tach on 07/27 and 07/23 -Troponin went up from 0.1 to 0.14 and 0.16 which came down to 0.12, no EKG changes, no chest pain reported by the patient. -Cardiology on board, plan to obtain CT chest today and possible cardiac MRI to rule out pericardial abnormality and right side heart catheterization -HTN and HLP - lisinopril 20 mg daily, metoprolol tartrate 12.5 mg BID #DM type 2 -prandin 0.5 mg before meals, no insulin -Patient is very sensitive to insulin -HGA1c 8.3 #Rheumatoid arthritis on methotrexate -Hold methotrexate -Continue prednisone 10 mg daily #Leukopenia, thrombocytopenia -Patient is on methotrexate for RA -Consult obtained with Dr. Nevarez -Recommendation to continue hold methotrexate -Reticulocyte count is 2.3 -Lactate dehydrogenase WNL -Anderson test +1 with negative LDH and bilrubin. Low suspicion for hemolytic anemia -Recommendation to careful red blood cell transfusion and hem occult stool -Platelet 55, will discontinue heparin subcutaneous #Chronic anemia -Patient received 1 unit of blood to keep hemoglobin above 8 -Continue Folic acid and Vit B 12 -continue ferrous 325 mg daily #Hypothyroidism -Continue synthroid 0.2 MG daily -TSH and T4:WNL #Elevated globulin gap -Recent 07/19 Protein electrophoresis showed 17% albumin, alpha 1 globulin 2%, alpha 2 globulin 7%, beta globulin 27% , gammaglobulin 47% - Consistent Carbohydrate 3 chopped and thick nectar DVT PPx ALPs Code Full Consultation cardiology, pulmonology, nephrology, hemp/ oncology Problem List: 1. Pericardial effusion 2. Congestive heart failure 3. CHF exacerbation Pain Ratin Pain Location: N/A Pain Goal: Pain 4 or less Pain Plan: see mediaction Tomorrow's Labs & Rationales: CBc, CMP VICTORINO OBRIEN MD 07/29/162051: Attending MD Review Statement Attending Statement Attending MD Statement: examined this patient, discuss w/resident/PA/RESEARCHER, agreed w/resident/PA/RESEARCHER, reviewed EMR data (avail), discussed with nursing, discussed with case mgmt, amended to note Attending Assessment/Plan: The patient was seen and agree with the plan of care as outlined. Cardiology input appreciated.
[2016-07-29 08:53] VITALS: BP 120/60
[2016-07-29 09:08] LABS: PLATELET COUNT 55 /CUMM (130-400)
--- NOTE | 2016-07-29 11:38 | RADIOLOGY REPORT ---
EXAMINATION XR chest CLINICAL INFORMATION: Pleural effusion and pulmonary edema. Hypoxia. COMPARISON: CXR from 07/21/2016 and 07/26/2016 TECHNIQUE: CXR, PA and lateral views FINDINGS: Findings within the chest are similar to those observed on 07/26/2016 and improved compared to 07/21/2016. Again noted is cardiomegaly and pulmonary vascular congestion. The interstitial prominence suggests presence of persistent mild interstitial edema. There are small bilateral pleural effusions. A trace amount of fluid is present within the right minor fissure. Mild bibasilar atelectasis is present. No acute pulmonary consolidation, pneumothorax or other significant interval change. IMPRESSION: Cardiomegaly, pulmonary vascular congestion, mild interstitial edema and small pleural effusions are similar in appearance compared to 07/26/2016.
--- NOTE | 2016-07-29 12:06 | PN- Cardiology ---
Subjective Subjective: Feels as though his breathing has improved. Objective Vital Signs and I&Os Well-developed elderly male in no acute distress. Vital signs: See above. Lungs: Clear to auscultation. Heart: S1, S2 with soft systolic murmur. Extremities: Decreased edema. Current Medications: Current Medications Sig/Lenny Start time Last Medication Dose Route Stop Time Status Admin Acetaminophen 650 MG Q6P PRN 07/21 1700 AC 07/26 PO 2039 Acetaminophen/ 1 TAB Q6P PRN 07/21 1700 DC Hydrocodone Bitart PO Cyanocobalamin 1,000 MCG DAILY 07/21 1932 AC 07/29 PO 0933 Folic Acid 2 MG DAILY 07/22 1000 AC 07/29 PO 0933 Furosemide 20 MG BID 07/21 2199 AC 07/29 IV 0932 Levothyroxine Sodium 0.2 MG DAILY 07/22 1000 AC 07/29 PO 0933 Lisinopril 20 MG DAILY 07/22 1000 AC 07/29 PO 0933 Metoprolol Tartrate 12.5 MG BID 07/22 2200 AC 07/29 PO 0933 Omeprazole 20 MG DAILY AC 07/22 1130 AC 07/29 PO 0628 Oxycodone HCl 10 MG Q6P PRN 07/21 1700 DC PO Patient Medication 1 ED .STK-MED ONE 07/28 1345 DC Teaching ED 07/28 1346 Potassium Chloride 40 MEQ ONCE ONE 07/29 0930 DC 07/29 PO 07/29 0931 0932 Prednisone 10 MG DAILY 07/29 1000 AC 07/29 PO 0933 Prednisone 20 MG DAILY 07/22 1500 DC 07/27 PO 0936 Repaglinide 0.5 MG TIDAC 07/22 0800 AC 07/29 PO 0752 Results Last 48 Hrs of Labs/Mics: Laboratory Tests 07/29/16 0605: Anion Gap 8, Estimated GFR 45 L, BUN/Creatinine Ratio 43.3 H, Magnesium 2.1, CBC w Diff MAN DIFF ORDERED, RBC 3.84 L, MCV 74.9 L, MCH 24.4 L, RDW 22.9 H, MPV 7.7, Gran % 69.0, Lymphocytes % 20.6, Monocytes % 9.3, Eosinophils % 0.8, Basophils % 0.3, Absolute Granulocytes 2.4, Absolute Lymphocytes 0.7 L, Absolute Monocytes 0.3, Absolute Eosinophils 0, Absolute Basophils 0, Platelet Estimate DECREASED, Hypochromic-Microcytic 1+, Poikilocytosis 1+, Anisocytosis 1 +, Microcytic Cells 1+, Target Cells , PUBS MCHC 32.6 L 07/28/16 0605: Anion Gap 9, Estimated GFR 42 L, BUN/Creatinine Ratio 46.9 H, CBC w Diff NO MAN DIFF REQ, RBC 3.76 L, MCV 75.8 L, MCH 24.4 L, RDW 22.8 H, MPV 7.7, Gran % 73.9, Lymphocytes % 14.1 L, Monocytes % 11.4 H, Eosinophils % 0.3, Basophils % 0.3, Absolute Granulocytes 2.7, Absolute Lymphocytes 0.5 L, Absolute Monocytes 0.4, Absolute Eosinophils 0, Absolute Basophils 0, PUBS MCHC 32.2 L Recent Imaging Studies: CXR (07/29/2016) Cardiomegaly, pulmonary vascular congestion, mild interstitial edema and small pleural effusions are similar in appearance compared to 2016. Assessment/Plan Assessment/Plan Mr. Lomas is an elderly male recently diagnosed with diabetes mellitus and placed on insulin therapy who again presents with progressive shortness of breath, orthopnea, cough, and lower extremity edema with clinical and radiographic evidence of heart failure, weakness, and worsening anemia. The etiology for his heart failure is presently unclear, but although he had normal left ventricular wall thickness observed on his most recent echocardiogram, he also had evidence of stage III diastolic dysfunction. There was concern, given his multiple risk factors, that ischemia may have been a significant contributing factor for his presentation, but fortunately stress testing performed yesterday failed to reveal any evidence of ischemia. Given his previous cardiac tamponade s/p pericardial window, there is also a concern of pericardial constriction that might be responsible for his presentation. The plan is to repeat a chest CT and possibly pursue a cardiac MRI to better assess the pericardium and possibly proceed with right heart catheterization. Clinically, he has continued to improve with diuresis. His BUN/creatinine continues to slowly improve. Continue to follow-up potassium and magnesium. Continue IV diuresis and negative fluid balance. Today's (07/29/2016) repeat CXR is unchanged from his previous CXR (07/26/2016). Continue to check all stool for occult blood. Continue DVT prophylaxis. Continue telemetry? Yes
--- NOTE | 2016-07-29 12:35 | PN- Pulmonary ---
See Addendum Subjective HPI/Critical Care Issues: Feels improved Afebrile Fatigued Objective Current Medications: Current Medications Sig/Lenny Start time Last Medication Dose Route Stop Time Status Admin Acetaminophen 650 MG Q6P PRN 07/21 1700 AC 07/26 PO 2039 Acetaminophen/ 1 TAB Q6P PRN 07/21 1700 DC Hydrocodone Bitart PO Cyanocobalamin 1,000 MCG DAILY 07/21 1932 AC 07/29 PO 0933 Folic Acid 2 MG DAILY 07/22 1000 AC 07/29 PO 0933 Furosemide 20 MG BID 07/21 2200 AC 07/29 IV 0932 Levothyroxine Sodium 0.2 MG DAILY 07/22 1000 AC 07/29 PO 0933 Lisinopril 20 MG DAILY 07/22 1000 AC 07/29 PO 0933 Metoprolol Tartrate 12.5 MG BID 07/22 2200 AC 07/29 PO 0933 Omeprazole 20 MG DAILY AC 07/22 1130 AC 07/29 PO 0628 Oxycodone HCl 10 MG Q6P PRN 07/21 1700 DC PO Patient Medication 1 ED .STK-MED ONE 07/28 1345 DC Teaching ED 07/28 1346 Potassium Chloride 40 MEQ ONCE ONE 07/29 0930 DC 07/29 PO 07/29 0931 0932 Prednisone 10 MG DAILY 07/29 1000 AC 07/29 PO 0933 Prednisone 20 MG DAILY 07/22 1500 DC 07/27 PO 0936 Repaglinide 0.5 MG TIDAC 07/22 0800 AC 07/29 PO 1225 Laboratory Tests 07/29 07/28 0605 0605 Chemistry Sodium (137 - 145 mmol/L) 140 144 Potassium (3.5 - 5.1 mmol/L) 3.5 3.9 Chloride (98 - 107 mmol/L) 101 102 Carbon Dioxide (22 - 30 mmol/L) 31 H 33 H Anion Gap (5 - 16) 8 9 BUN (9 - 20 mg/dL) 65 H 75 H Creatinine (0.7 - 1.2 mg/dL) 1.5 H 1.6 H Estimated GFR (>60 ml/min) 45 L 42 L BUN/Creatinine Ratio (7 - 25 %) 43.3 H 46.9 H Magnesium (1.6 - 2.3 mg/dL) 2.1 Hematology CBC w Diff MAN DIFF ORDERED NO MAN DIFF REQ WBC (4.8 - 10.8 /CUMM) 3.5 L 3.6 L RBC (4.70 - 6.10 /CUMM) 3.84 L 3.76 L Hgb (14.0 - 18.0 G/DL) 9.4 L 9.2 L Hct (42 - 52 %) 28.7 L 28.5 L MCV (80.0 - 94.0 FL) 74.9 L 75.8 L MCH (27.0 - 31.0 PG) 24.4 L 24.4 L RDW (11.5 - 14.5 %) 22.9 H 22.8 H Plt Count (130 - 400 /CUMM) 55 L 64 L MPV (7.4 - 10.4 FL) 7.7 7.7 Gran % (42.2 - 75.2 %) 69.0 73.9 Lymphocytes % (20.5 - 51.1 %) 20.6 14.1 L Monocytes % (1.7 - 9.3 %) 9.3 11.4 H Eosinophils % (0 - 5 %) 0.8 0.3 Basophils % (0.0 - 2.0 %) 0.3 0.3 Absolute Granulocytes (1.4 - 6.5 /CUMM) 2.4 2.7 Absolute Lymphocytes (1.2 - 3.4 /CUMM) 0.7 L 0.5 L Absolute Monocytes (0.10 - 0.60 /CUMM) 0.3 0.4 Absolute Eosinophils (0.0 - 0.7 /CUMM) 0 0 Absolute Basophils (0.0 - 0.2 /CUMM) 0 0 Platelet Estimate (ADEQUATE) DECREASED Hypochromic-Microcytic 1+ Poikilocytosis 1+ Anisocytosis 1+ Microcytic Cells 1+ Target Cells PUBS MCHC (33.0 - 37.0 G/DL) 32.6 L 32.2 L Vital Signs & I&O Last 24 Hrs of Vitals and I&O: Vital Signs Date Time Temp Pulse Resp B/P Pulse O2 O2 Flow FiO2 Ox Delivery Rate 07/29 0933 68 120/60 07/29 0933 68 120/60 07/29 0853 97.5 68 20 120/60 100 Nasal 1.0L Cannula 07/29 0000 Nasal 1.0L Cannula 07/288 97.8 73 20 110/60 97 Nasal 2.0L Cannula 07/28 2222 75 110/60 07/28 2221 75 110/60 07/28 1600 Nasal 1.0L Cannula 07/28 1530 97.4 62 20 108/64 98 Nasal 1.0L Cannula Intake & Output 07/29 1600 07/29 0800 07/29 0000 Intake Total 100 600 Output Total 400 600 Balance -300 0 Intake, Oral 100 600 Output, Urine 400 600 Patient 171 lb Weight Impression/Plan Impression/Plan Impression/Plan: Physical Exam: Well-developed, well-nourished elderly male, less lethargic than yesterday Appeared short of breath Vital signs: See above. HEENT: Normocephalic, atraumatic, EOMI, moist mucous membranes. Neck: No JVD, no bruits. Lungs: Bibasilar crackles. Mild wheezing Heart: S1, S2 with no murmur, gallop, or rub appreciated. PMI fifth ICS at MCL. Abdomen: Soft, nontender, positive bowel sounds. Extremities: Trace bilateral lower extremity edema. Neurological exam patient was mildly lethargic but easily arousable. SIGNIFICANT DATA Previous echocardiogram showed significant mild anterior wall hypokinesis and restrictive filling pattern with moderate pulmonary hypertension Chest x-ray done showed bilateral pleural effusion with persistent diffuse interstitial edema stable opacity with loculated fluid in the chest which is not changed from before He has chronically elevated creatinine bicarbonate is 38 anion gap was normal White count was low at 2.9 platelets are low at 116 is chronically anemic with hemoglobin of 9 with MCV of 75 is INR was 1.77 his previous immunoelectrophoresis showed chronic inflammatory process his anti-CCP was very high no monoclonal antibody seen in his electrophoresis His CT chest reviewed which showed congestive heart failure with loculated pleural effusion small pericardial effusion also. IMPRESSION This is a gentleman with history of rheumatoid arthritis on methotrexate hence immunosuppressed, Previous sig pericardial effusion prob related to RA s/p window with neg cytology and cultures for any malignancy and infections, Chronic loculated effusion both sides due to inflammatory path due to RA, significant diastolic heart disease with thickened pericardium with prob restrictive physiology, diabetes, coronary artery disease, now has the following issues * Resolved Acute on chronic hypercarbic respiratory failure due to probable obesity hypoventilation, persistent heart failure with central apnea clinically. Did respond to BiPAP initially now Better * Resolving pulmonary edema significant diastolic dysfunction consistent with restrictive hemodynamics. * CKD with mild worsening of renal function * He has had previous history of pericardial window and he has thickened pericardium this may be also causing constictive pericaridal path. THis is related to sig RA with sig serositis * On off aspiration in the past * Bilateral loculated pleural effusion in the fissure related to inflammatory process, and the pathology is prob the same as his the pathology which caused his pericardial effusion i.e. rheumatoid arthritis. His TB cultures have been negative in the past. There is no clear evidence suggestive of empyema or significant pulmonary malignancy, cytology neg from pericardial window * Prior granulomatous lung disease with mild emphysema * Sig microcytic anemia with prob anemia of chronic disease, Previous history of hemolytic anemia * Mild pancytopenia rule out myelodysplasia * Sig history of RHeumatoid and hence immunosuppressed, was on MTX. SIne methrotrexate has been stopped his fatigue and strength seems to have improved. * Chronic kidney disease stage II, with diabetes with mild proteinuria and hypertension * History of prostate ca REC Continue gentle diuresis, watch his creatinine. Keep his potassium more than 4, please give standing dose of potassium if lasix used regularly As he has improved, will use diamox only if bicarb rises to more than 36 only after his potassium is more than 4. Lasix per renal and cardio Anticoagulation for prevention of DVT, subcutaneous heparin Hold methotrexate, Pt may need to be off this till his fatigue and asthenia improves, Cont prednisone and decrease further to 10 mg and keep on 10 mg Continue folic acid B12 1000 international units daily
[2016-07-29 15:00] VITALS: BP 102/62
--- NOTE | 2016-07-29 15:06 | CT SCAN REPORT ---
EXAMINATION: CT CHEST WITHOUT CONTRAST CLINICAL INFORMATION: Shortness of breath. Congestive heart failure. Negative stress test. Evaluate the pericardium and aorta. COMPARISON: Chest CT from 08/11/2015 and 07/05/2016. CXR from 07/26/2016 and 07/29/2016. TECHNIQUE: Multidetector volumetric CT imaging of the chest was done. Axial MIP volume rendering provided. Sagittal and coronal reformatted images were obtained. DLP: 289 mGy-cm. FINDINGS: Lungs and pleura: Mild centrilobular emphysema. There is some mucus of the proximal left mainstem at the level of the xochitl. There is smooth wall thickening of bronchi in both lungs, likely related to edema of the axial interstitium. Septal thickening in both lungs has decreased compared to 07/05/2016, indicative of improvement in pulmonary edema. There are stable fibrotic opacities at the lung apices with pleural-based calcification at the right apex. There are several small, less than 0.3 cm pulmonary and pleural-based nodules in the right upper lobe, and some of these are calcified and related to remote granulomatous disease. Stable 0.4 cm and 0.3 cm noncalcified nodules are present within the lateral segment of the right middle lobe (images 221 and 233, series 4). There are stable, noncalcified nodules within the left upper lobe (image 153, 189 and 228, series 4). Atelectasis is present within subpleural regions of each lower lobe and there is appears to be chronic pleural thickening overlying the posterior aspect of each lower lobe. There are persistent loculations of pleural fluid within the right and left major fissures. Also, a small amount of loculated pleural fluid overlies the medial segment of the right lower lobe. Mediastinum/cardiovascular: Cardiomegaly and severe three-vessel coronary artery atherosclerotic disease. A crescentic, loculated right pericardial effusion measures 1.8 cm transverse, 8 cm AP, unchanged compared to 07/05/2016. The dilated ascending thoracic aorta measures up to 4.2 cm transverse, 4.3 cm AP, unchanged. There is chronic, mild hyperdense thickening of the wall of the distal ascending aorta at the site of remote intramural hematoma. At the mid arch level, the aorta is measures 3.3 cm diameter. The proximal and distal descending aorta measure 3.2 cm and 3.2 cm transverse diameter, respectively. Pulmonary arteries are normal in caliber. The esophagus is slightly compressed between the tortuous descending thoracic aorta and enlarged left atrium. Thyroid gland is unremarkable. Lymphatics: No pathologic sized axillary, hilar or mediastinal lymph nodes. There are calcified right paratracheal, subcarinal and right hilar lymph nodes from old granulomatous disease. Upper abdomen: Cholelithiasis. Small amount of ascitic fluid surrounds the liver and spleen within the visualized upper abdomen. Adrenal glands are unremarkable. The intrahepatic IVC and hepatic veins are prominent, suggestive of venous congestion from elevated right-sided cardiac pressures. Osseous structures: No acute osseous abnormalities. IMPRESSION: 1. Coronary artery atherosclerotic disease, cardiomegaly and mild pulmonary edema, improved compared to 07/05/2016. There are persistent loculated pleural effusions along the major fissures and medial right lung base. 2. Stable dilatation of the tortuous atherosclerotic aorta. The ascending thoracic aorta measures up to 4.2 cm transverse, 4.3 cm AP diameter. No new aortic findings. 3. Loculated right pericardial effusion is unchanged. 4. Old granulomatous disease. Multiple stable pulmonary nodules are present in both lungs 5. Cholelithiasis. 6. Small volume of ascitic fluid is present within the visualized upper abdomen.
[2016-07-29] MEDS ORDERED: OMEPRAZOLE20 M2 PO (17:14)
[2016-07-29] MEDS ORDERED: PREDNISONE10 M2 PO (17:14)
--- NOTE | 2016-07-29 17:15 | Patient Discharge Instructions ---
Discharge Instructions General Discharge Information Special Instructions: -Please follow-up with your PCP within 1 week after discharge -Please follow-up with automotive specialty technician Dr. Chapman within 1 week after discharge -Please follow-up with safe deposit attendant Aj Grier MD within 1 week after discharge -Please follow up with lens mold setter after discharge Acute Coronary Syndrome Inclusion Criteria At DC or during hospital stay patient has or had the following: ACS DIAGNOSIS No Discharge Core Measures Meds if any: Prescribed or Continued at Discharge Meds if any: NOT Prescribed or Continued at Discharge Congestive Heart Failure Inclusion Criteria At DC or during hospital stay patient has or had the following: CHF DIAGNOSIS No Discharge Core Measures Meds if any: Prescribed or Continued at Discharge Meds if any: NOT Prescribed or Continued at Discharge Cerebrovascular accident Inclusion Criteria At DC or during hospital stay patient has or had the following: CVA/TIA Diagnosis No Discharge Core Measures Meds if any: Prescribed or Continued at Discharge Meds if any: NOT Prescribed or Continued at Discharge Venous thromboembolism Inclusion Criteria VTE Diagnosis No VTE Type NONE VTE Confirmed by (Test) NONE Discharge Core Measures - Per Current guidelines, there needs to be overlap - treatment for the first 5 days of Warfarin therapy. - If discharged on Warfarin prior to 5 days of - overlap therapy, the patient will need to be - assessed for post discharge needs including - *Post discharge parental anticoagulation - *Warfarin and/or parental anticoagulation education - *Follow up date to check INR post discharge At least 5 days overlap therapy as Inpatient Yes Meds if any: Prescribed or Continued at Discharge Note: Overlap Therapy is Warfarin and Anticoagulant Meds if any: NOT Prescribed or Continued at Discharge
[2016-07-29 21:30] VITALS: BP 102/50
[2016-07-30 07:43] LABS: ABSOLUTE BASOPHIL COUNT 0 /CUMM (0.0-0.2); ABSOLUTE EOSINOPHIL COUNT 0 /CUMM (0.0-0.7); ABSOLUTE GRANULOCYTE CT 2.3 /CUMM (1.4-6.5); ABSOLUTE LYMPH COUNT 0.7 /CUMM (1.2-3.4); ABSOLUTE MONOCYTE COUNT 0.5 /CUMM (0.10-0.60); BASOPHIL % 0.2 % (0.0-2.0); EOSINOPHIL % 0.5 % (0-5); HEMATOCRIT 26.9 % (42-52); MEAN CORPUSCULAR HGB 24.7 PG (27.0-31.0); MEAN CORPUSCULAR HGB CONC 32.7 G/DL (33.0-37.0); MEAN CORPUSCULAR VOLUME 75.7 FL (80.0-94.0); MEAN PLATELET VOLUME 7.9 FL (7.4-10.4); RBC DISTRIBUTION WIDTH 23.5 % (11.5-14.5); RED BLOOD CELL CT 3.56 /CUMM (4.70-6.10); WHITE BLOOD CELL COUNT 3.6 /CUMM (4.8-10.8)
[2016-07-30 08:12] VITALS: BP 100/50
[2016-07-30 08:25] LABS: PLATELET COUNT 45 /CUMM (130-400)
--- NOTE | 2016-07-30 09:33 | PN- Housestaff ---
[facility] 07/30/16 0932: Subjective Follow-up For: Weakness B/L LE edema Diastolic CHF Hypoxia and preexistant loculated pleural effusion Resistant pulmonary edema Tele-Events Since Last Visit: Sinus rhythm Heart rate 63-69 No overnight events Subjective: Patient was seen and examined this morning, no overnight events reported by the patient or the nurses. No acute distress, vital signs are stable. Plan for discharge today Review of Systems Constitutional: Denies: no symptoms. Objective Last 24 Hrs of Vital Signs/I&O Vital Signs Date Time Temp Pulse Resp B/P Pulse O2 O2 Flow FiO2 Ox Delivery Rate 07/30 1135 70 100/50 07/30 1134 70 100/50 07/30 0812 97.8 70 20 100/50 98 Room Air 07/30 0000 Nasal 1.0L Cannula 07/29 2224 79 106/60 07/29 2130 97.9 80 16 102/50 97 Nasal 1.0L Cannula 07/29 1600 Nasal 1.0L Cannula 07/29 1500 97.3 77 20 102/62 96 Nasal 1.0L Cannula Intake & Output 07/30 1600 07/30 0800 07/30 0000 Intake Total 240 610 Output Total 450 700 Balance -210 -90 Intake, IV 0 10 Intake, Oral 240 600 Number 0 Bowel Movements Output, Urine 450 700 Patient 76.317 kg Weight Physical Exam General Appearance: Alert, Oriented X3, Cooperative, No Acute Distress Skin: No Rashes, No Breakdown, No Significant Lesion Cardiovascular: Regular Rate, Normal S1, Normal S2, No Murmurs Lungs: Clear to Auscultation, Normal Air Movement Abdomen: Normal Bowel Sounds, Soft, No Tenderness Neurological: Normal Gait, Normal Speech, Strength at 5/5 X4 Ext, Normal Tone, Sensation Intact, Cranial Nerves 3-12 NL, Reflexes 2+ Extremities: No Clubbing, No Cyanosis, Normal Pulses, bilateral +1 pedal edema Assessment/Plan Assessment: Mr. Lomas is a 75 y/o M with chief complain of weakness for two days. He has PMHx of grade 3 diastolic dysfunction, prostate cancer s/p hormone and radiation therapy, rheumatoid arthritis, hypothyroidism, R-sided CVA, cardiac tamponade s/ p pericardial window, HLD, HTN and T2DM on prandin 0.5 mg before meals, no insulin per Dr. Hutchison, bilateral loculated pleural effusion, emphysema, baseline hypercarbia, abnormal swallowing test, Hx of elevated globulin gap with exclusion to multiple myeloma. Problem list -CHF exacerbation -HTN and HLP -DM type 2 -Rheumatoid arthritis on methotrexate -Leukopenia, thrombocytopenia -Chronic anemia -Hypothyroidism -Elevated globulin gap Patient is for discharge today to home Plan #CHF exacerbation -patient has history of CHFpEF -Patient has PMH of cardic tamponade s/p pericardial window, patient has normal left ventricular function with evidence of stage III diastolic dysfunction -Patient presented with history of weakness for 2 days, he continued to be lethargic. Weakness could be multifactorial, anemia, congestive heart failure with pulmonary complication -Dipyridamole stress test was obtained yesterday IMPRESSION: No definite perfusion abnormalities are noted. Decreased activity in the inferior wall is likely due to attenuation by the adjacent diaphragm. No regions of reversible ischemia are visualized. Left ventricular wall motion and ejection fraction are normal. -Lasix 20 mg BID IV , keep gentle hydration given worsening kidney function -We will continue Lasix 40 mg by mouth twice a day after discharge -DC Diamox 250 qod, use diamox only if HCO3 more than 36 or if K more than 4 -K Dur 20 mg daily, keep potassium more than 4 and magnesium more than 2 -Repeated chest x-ray 07/29 showed similar findings that was observed on 2016 of cardiomegaly and pulmonary vascular congestion, mild interstitial edema and small pleural effusions bilateral. There is mild bi-basilar atelectasis with no acute pulmonary consultation. -CT chest without contrast was ordered for today, plan for possible cardiac MRI to rule out pericardial abnormality and right side heart catheterization -Patient has multiple risk factors and risk equivalent for coronary artery disease, maintain hemoglobin above 8 g/dL, patient received 1 unit of blood -Guaiac all stool -Maintain negative fluid balance -1400 -TRC TID and PRN -BiPAP, keep off BiPAP and the patient is awake and respond appropriately -Aspiration precaution, patient has abnormal barium swallowing test -Pulmonary consultation obtained followed recommendations for the persistent small bilateral pleural effusion and interstitial edema #Worsening kindeny function -The patient BUN/Cr 66/1.6 -Nephrology consultation was obtained -Cuurent creatinine level could be acceptable given the patient CHFpEF and respiratory condition -Renal US in 07/23 1. No evidence of hydronephrosis. 2. Small parapelvic mid right renal cyst. 3. Otherwise unremarkable study. -Urine protein to creatinine ratio is 1 within normal -Urine random creatinine 73, random total protein 4.8 -Serum protein electrophoresis was obtained during last admission in June with negative results for mononuclear proteins -Recommendation to continue current diuretic regimen for with caution -Diamox therapy based on HCO3 and K daily -Continue lisinopril 20 mg daily #Elevated troponin -Patient had 2 runs of v tach on 07/27 and 07/23 -Troponin went up from 0.1 to 0.14 and 0.16 which came down to 0.12, no EKG changes, no chest pain reported by the patient. -Cardiology on board, plan to obtain CT chest today and possible cardiac MRI to rule out pericardial abnormality and right side heart catheterization -HTN and HLP - lisinopril 20 mg daily, metoprolol tartrate 12.5 mg BID #DM type 2 -prandin 0.5 mg before meals, no insulin -Patient is very sensitive to insulin -HGA1c 8.3 #Rheumatoid arthritis on methotrexate -Hold methotrexate -Continue prednisone 10 mg daily -Patient was instructed to follow-up with zipper setter chainstitch after discharge #Leukopenia, thrombocytopenia -Patient is on methotrexate for RA -Consult obtained with Dr. Nevarez -Recommendation to continue hold methotrexate -Reticulocyte count is 2.3 -Lactate dehydrogenase WNL -Anderson test +1 with negative LDH and bilrubin. Low suspicion for hemolytic anemia -Recommendation to careful red blood cell transfusion and hem occult stool -Platelet 55, will discontinue heparin subcutaneous #Chronic anemia -Patient received 1 unit of blood to keep hemoglobin above 8 -Continue Folic acid and Vit B 12 -continue ferrous 325 mg daily #Hypothyroidism -Continue synthroid 0.2 MG daily -TSH and T4:WNL #Elevated globulin gap -Recent 07/19 Protein electrophoresis showed 17% albumin, alpha 1 globulin 2%, alpha 2 globulin 7%, beta globulin 27% , gammaglobulin 47% - Consistent Carbohydrate 3 chopped and thick nectar DVT PPx ALPs Code Full Consultation cardiology, pulmonology, nephrology, hemp/ oncology Problem List: 1. Diabetes 2. Congestive heart failure Pain Ratin Pain Location: n/a Pain Goal: Pain 4 or less Pain Plan: see medication Tomorrow's Labs & Rationales: none VICTORINO OBRIEN MD 07/30/162151: Attending MD Review Statement Attending Statement Attending MD Statement: examined this patient, discuss w/resident/PA/CENTRAL SUPPLY TECH, agreed w/resident/PA/CENTRAL SUPPLY TECH, discussed with family, reviewed EMR data (avail), discussed with nursing, discussed with case mgmt, reviewed images, amended to note Attending Assessment/Plan: The patient was seen and discussed with house staff. Agree with the plan of care as outlined. OK to discharge today to home with services.
[2016-07-30 11:35] VITALS: BP 100/50
== END 2016-07-30 14:30 | disposition home health service (06) | DRG 291 ==
LOC: ENRESERVDT → ENRESERVTM → ERH 11:42 → 1NO 16:20 → ERHI 16:20 → EDBEDREQ 16:27 → 1NO 21:24 → ENPENDDIS 07-22 16:02 → 1NO 07-23 08:46
PROVIDERS: Emergency Medicine; Internal Medicine; Ophthalmology; Student in an Organized Health Care Education/Training Program; ADMIT Hospitalist
PROC: 5A09457 Assistance with Respiratory Ventilation, 24-96 Consecutive Hours, Continuous Positive Airway Pressure (ICD-10-PCS; principal; 2016-07-22)
PROC: 30233N1 Transfusion of Nonautologous Red Blood Cells into Peripheral Vein, Percutaneous Approach (ICD-10-PCS; 2016-07-26)
DX: I13.0 Hypertensive heart and chronic kidney disease with heart failure and stage 1 through stage 4 chronic kidney disease, or unspecified chronic kidney disease (principal); I50.33 Acute on chronic diastolic (congestive) heart failure; J96.22 Acute and chronic respiratory failure with hypercapnia; I47.2 Ventricular tachycardia; D61.818 Other pancytopenia; E87.3 Alkalosis; E11.22 Type 2 diabetes mellitus with diabetic chronic kidney disease; D69.6 Thrombocytopenia, unspecified; D68.9 Coagulation defect, unspecified; I24.8 Other forms of acute ischemic heart disease; M06.9 Rheumatoid arthritis, unspecified; N18.2 Chronic kidney disease, stage 2 (mild); E03.9 Hypothyroidism, unspecified; E78.5 Hyperlipidemia, unspecified; K21.9 Gastro-esophageal reflux disease without esophagitis; D64.9 Anemia, unspecified; I27.2 Other secondary pulmonary hypertension; Z87.891 Personal history of nicotine dependence; Z79.84 Long term (current) use of oral hypoglycemic drugs; Z86.73 Personal history of transient ischemic attack (TIA), and cerebral infarction without residual deficits; Z85.46 Personal history of malignant neoplasm of prostate
CPT/HCPCS: 1NP; 1NSP; 6020; 36415; 76775; 78452; 81001; 81003; 82436; 82570; 86920; 87804; 87804-59; 93005; 93010; 93016; 93017; 93970; 96374; 97110-GO; 97116-GO; 97162-GP; 97530-GO; A9502; G0378; J1200; J1245; J1644; J1940; J3490; J7512; P9016

== ENCOUNTER 2016-12-22 09:43 | Inpatient (IN) | payer OTHER ==
[~2016-12-22] VITALS: Ht 167.6 cm; Wt 68.9 kg
[~2016-12-22 09:43] MED LIST changes: -ENALAPRIL20 MG PO; +LASIX40 M1 PO; +OMEPRAZOLE20 M2 PO; +PREDNISONE10 M2 PO; +VASOTEC10 MG PO
--- NOTE | 2016-12-22 09:45 | NUR ---
PT TO ED WITH SON FOR C/O SOB. SON ALSO STATES THIS AM WHEN TAKING HIS FATHERS VITALS HIS BP AND HEARTRATE WERE HIGH. PT TAKEN TO ROOM 7 VIA W/C. RA SATS 85%, PT PLACED ON 4L NC, SATS UP TO 95%. FISHING REEL ASSEMBLER IS DR MAI. PT C/O FEELING SOB AND SOME C/P. EKG IN PROGRESS. CHANGED INTO GOWN. AWAITING PROVIDER EVAL. BP 128/80, HR 108.
--- NOTE | 2016-12-22 10:00 | ED DYSPNEA/ASTHMA COMPLAINT ---
History of Present Illness General Chief Complaint: General Adult Stated Complaint: ELEVATED BP PER FAMILY,SOB Source: patient, family, old records Exam Limitations: no limitations Vital Signs & Intake/Output Vital Signs & Intake/Output Vital Signs Date Time Temp Pulse Resp B/P B/P Pulse O2 O2 Flow FiO2 Mean Ox Delivery Rate 12/22 1042 96.8 88 18 127/76 98 Nasal 4.0L Cannula 12/22 1010 88 Room Air 12/22 0952 95 Nasal 4.0L Cannula 12/22 0948 96.0 108 20 128/80 85 Room Air Allergies Coded Allergies: aspirin (Mild, ULCER 10/13/15) Reconcile Medications Enalapril Maleate 20 MG TAB 1 TAB PO DAILY HTN (Reported) Folic Acid 1 MG TABLET 2 MG PO DAILY SUPPLEMENT (Reported) Furosemide (Lasix) 40 MG TABLET 1 TAB PO BID DIURETIC (Reported) Levothyroxine Sodium 0.2 MG TAB 1 TAB PO DAILY THYROID (Reported) Metoprolol Tartrate 25 MG TABLET 12.5 MG PO BID HEART HEALTH Omeprazole 20 MG CAPSULE.DR 1 CAP PO DAILY ACID REFLUX Prednisone 10 MG TABLET 1 TAB PO BID Rhomatoid Arthritis Repaglinide (Prandin) 0.5 MG TABLET 1 TAB PO TIDAC DIABETES Hold prandin if you skip a meal Triage Note: PT TO ED WITH SON FOR C/O SOB. SON ALSO STATES THIS AM WHEN TAKING HIS FATHERS VITALS HIS BP AND HEARTRATE WERE HIGH. PT TAKEN TO ROOM 7 VIA W/C. RA SATS 85%, PT PLACED ON 4L NC, SATS UP TO 95%. METALIZING MACHINE OPERATOR IS DR GARCIA. PT C/O FEELING SOB AND SOME C/P. EKG IN PROGRESS. CHANGED INTO GOWN. AWAITING PROVIDER EVAL. BP 128/80, HR 108. Triage Nurses Notes Reviewed? yes HPI: PT PRESENTS WITH INCREASES PERDUE AND ORTHOPNEA. PT GOES TO THE [facility] CLIN[facility] AND HAS AN APPOITMENT AT 11 THIS MORNING. HIS SON FOUND HIM VERY SHORT OF BREATH AND CHECKED HIS VITAL SIGNS. HE HAD A HR OF 120 AND B/P OF 180/100 AND HIS OXYGEN LEVEL WAS IN THE LOW 80'S. PT STATES THAT HE WAS UNABLE TO SLEEP LAST NIGHT BECAUSE HE COULD NOT BREATH ANY TIME HE LAID DOWN. UPON ARRIVAL TO THE ER HIS O2 LEVEL WAS 85% JUST TRANSFERING FROM WC TO STRETCHER AND THEN 88% AT REST. Past History Travel History Traveled to [place] past 21 day No Medical History Any Pertinent Medical History? 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 Cardiovascular: CHF, hypertension (pericardial effusion), CARDIOMEGALY Gastrointestinal: upper GI bleed Musculoskeletal: rheumatoid arthritis Endocrine: diabetes, hypothyroidism Blood Disorders: anemia Cancer(s): prostate cancer History of MRSA: No History of VRE: No History of CDIFF: No Influenza Vaccine: 04/11/16 Surgical History Surgical History: non-contributory Psychosocial History Who do you live with Son Services at Home None What is your primary language Serbocroatian Tobacco Use: Quit >30 days ago ETOH Use: denies use Illicit Drug Use: denies illicit drug use Family History Hx Contributory? No Review of Systems Review of Systems Constitutional: Reports: no symptoms. EENTM: Reports: no symptoms. Respiratory: Reports: see HPI, orthopnea, short of breath. Cardiovascular: Reports: no symptoms. GI: Reports: no symptoms. Genitourinary: Reports: no symptoms. Musculoskeletal: Reports: no symptoms. Skin: Reports: no symptoms. Neurological/Psychological: Reports: no symptoms. Hematologic/Endocrine: Reports: no symptoms. Immunologic/Allergic: Reports: no symptoms. All Other Systems: Reviewed and Negative Physical Exam Physical Exam General Appearance: well developed/nourished, alert, awake, anxious, mild distress Head: atraumatic, normal appearance Eyes: Bilateral: PERRL, EOMI. Ears, Nose, Throat: normal pharynx, normal ENT inspection, hearing grossly normal Neck: normal inspection, supple, full range of motion, JVD Respiratory: crackles Cardiovascular: normal peripheral pulses, irregularly irregular Gastrointestinal: normal bowel sounds, soft, non-tender, no organomegaly Extremities: normal inspection, normal capillary refill, normal range of motion, pedal edema Neurologic/Psych: no motor/sensory deficits, awake, alert, oriented x 3, normal mood/affect Skin: intact, normal color, warm/dry Lymphatic: no anterior cervical desmond Core Measures ACS in differential dx? Yes Severe Sepsis Present: No Septic Shock Present: No Progress Differential Diagnosis: AMI, CHF, pulmonary embolism, pneumonia, unstable angina Plan of Care: Orders Procedure Date/time Status Regular Diet 12/22 D Active OXYGEN SETUP (GEN) 12/22 1106 Active Saline Lock 12/22 1106 Active Misc Message 12/22 1106 Active ED Holding Orders 12/22 1106 Active Vital Signs 12/22 1106 Active Activity/Ambulation 12/22 1106 Active Code Status 12/22 1106 Active Patient Data 12/22 1058 Active Admit to inpatient 12/22 1056 Active Add-on Test (ER Only) 12/22 1048 Active PARTIAL THROMBOPLASTIN TIME 12/22 1006 Active PROTHROMBIN TIME 12/22 1006 Active Telemetry/Library Services Coordinator 12/22 0959 Active TROPONIN LEVEL 12/22 0959 Complete COMPREHENSIVE METABOLIC PANEL 12/22 0959 Complete CBC WITHOUT DIFFERENTIAL 12/22 0959 Complete B-TYPE NATRIURETIC PEP (BNP) 12/22 0959 Complete EKG 12/22 0944 Active Current Medications Sig/Lenny Start time Last Medication Dose Stop Time Status Admin Heparin Sodium 25,000 UNIT Q24H 12/22 1100 UNVr (Porcine) (Heparin) Sodium Chloride 500 ML Laboratory Tests 12/22/16 1006: Anion Gap 12, Estimated GFR 59 L, BUN/Creatinine Ratio 24.2, Glucose 150 H, Calcium 9.0, Total Bilirubin 1.6 H, AST 33, ALT 27, Alkaline Phosphatase 170 H , Troponin I < 0.01, Txo-R-Dmsaokjlaxi Pept 4810 H, Total Protein 9.3 H, Albumin 3.8, Globulin 5.5 H, Albumin/Globulin Ratio 0.7 L, PT Pending, INR Pending, APTT Pending, CBC w Diff NO MAN DIFF REQ, RBC 3.59 L, MCV 84.1, MCH 26.5 L, RDW 17.5 H, MPV 7.1 L, Gran % 70.7, Lymphocytes % 18.2 L, Monocytes % 10.4 H, Eosinophils % 0.2, Basophils % 0.5, Absolute Granulocytes 6.6 H, Absolute Lymphocytes 1.7, Absolute Monocytes 1.0 H, Absolute Eosinophils 0, Absolute Basophils 0, PUBS MCHC 31.6 L Diagnostic Imaging: Viewed by Me: Radiology Read. Discussed w/RAD: Radiology Read. CXR Impression: PATIENT: NINA NELSON PRESENT AGE: 76 PATIENT ACCOUNT NO: [id number] : 38 LOCATION: [facility] ORDERING PHYSICIAN: ELIZABETH BELLAMY MD SERVICE DATE: 12/22/16 EXAM TYPE: RAD - XRY- PORTABLE CHEST XRAY EXAMINATION: XR PORTABLE CHEST CLINICAL INFORMATION: Pulmonary edema COMPARISON: Multiple prior examinations including most recent chest x-ray 12/01/[address] July 2016 TECHNIQUE: Portable frontal view of the chest was obtained. FINDINGS: There is bilateral airspace disease and increased interstitial markings along with a right pleural effusion increased compared to prior. There is an stable oval opacity overlying the right lung which is stable and correlates with the previously noted lenticular loculated pleural fluid collection in the superior right major fissure. There is calcification of the dorsal aorta. The cardiac silhouette is within the upper limits of normal. IMPRESSION: Findings compatible with pulmonary edema and congestive heart failure and small right pleural effusion increased compared with 12/01/2016 Stable right fissural fluid collection DICTATED BY: VICTORINO PEREZ MD DATE/TIME DICTATED:12/22/161030 DEV MANAGER:UTE DATE/ TIME TRANSCRIBED:12/22/161030 CONFIDENTIAL, DO NOT COPY WITHOUT APPROPRIATE AUTHORIZATION. <Electronically signed in Other Vendor System> SIGNED BY: VICTORINO PEREZ MD 12/22/16 103 Initial ED EKG: rate controlled A Fib with LBBB and NSSTT changes. last EKG was SR with LBBB and NSSTT changes. Per son, patient was in A Fub in Dr. Garcia's off on Monday. Prior EKG: changed Rhythm Strip: atrial fibrillation Comments: d/w dr. garcia, his lv function has decreased. pt to be heparinized. Admit to tele. Departure Departure Disposition: STILL A PATIENT Condition: Guarded Clinical Impression Primary Impression: Pulmonary edema Secondary Impressions: New onset a-fib Referrals: ALICE BARNHART MD (PCP/Family) Departure Forms: Customer Survey General Discharge Information Admission Note Spoke With: FREDIS BAILON M.D Documentation of Exam: Documentation of any treatments & extenuating circumstances including Concerns Regarding Discharge (functional status, medication knowledge or non-compliance, living conditions, etc.) that warrant an admission rather than observation: [IV Lasix, tele monitorin, cardiology consultation, serial enzymes, IV Heparin] Critical Care Note Critical Care Note Critical Care Time: mins: (45 min.)
--- NOTE | 2016-12-22 10:10 | NUR ---
PT TO ER ROOM 7 IV EST. EKG COMPELTE
[2016-12-22 10:27] LABS: ABSOLUTE BASOPHIL COUNT 0 /CUMM (0.0-0.2); ABSOLUTE EOSINOPHIL COUNT 0 /CUMM (0.0-0.7); ABSOLUTE GRANULOCYTE CT 6.6 /CUMM (1.4-6.5); ABSOLUTE LYMPH COUNT 1.7 /CUMM (1.2-3.4); BASOPHIL % 0.5 % (0.0-2.0); EOSINOPHIL % 0.2 % (0-5); GRANULOCYTE % 70.7 % (42.2-75.2); HEMATOCRIT 30.2 % (42-52); MEAN CORPUSCULAR HGB 26.5 PG (27.0-31.0); MEAN CORPUSCULAR HGB CONC 31.6 G/DL (33.0-37.0); MEAN CORPUSCULAR VOLUME 84.1 FL (80.0-94.0); MEAN PLATELET VOLUME 7.1 FL (7.4-10.4); PLATELET COUNT 322 /CUMM (130-400); RBC DISTRIBUTION WIDTH 17.5 % (11.5-14.5); RED BLOOD CELL CT 3.59 /CUMM (4.70-6.10); WHITE BLOOD CELL COUNT 9.4 /CUMM (4.8-10.8)
--- NOTE | 2016-12-22 10:39 | RADIOLOGY REPORT ---
EXAMINATION: XR PORTABLE CHEST CLINICAL INFORMATION: Pulmonary edema COMPARISON: Multiple prior examinations including most recent chest x-ray 12/01/[address] July 2016 TECHNIQUE: Portable frontal view of the chest was obtained. FINDINGS: There is bilateral airspace disease and increased interstitial markings along with a right pleural effusion increased compared to prior. There is an stable oval opacity overlying the right lung which is stable and correlates with the previously noted lenticular loculated pleural fluid collection in the superior right major fissure. There is calcification of the dorsal aorta. The cardiac silhouette is within the upper limits of normal. IMPRESSION: Findings compatible with pulmonary edema and congestive heart failure and small right pleural effusion increased compared with 12/01/2016 Stable right fissural fluid collection
--- NOTE | 2016-12-22 10:44 | NUR ---
PT SATS 100% ON 4L OXYGEN. OXYGEN DOWN TO 3L LITERS AT THIS TIME. PT REPORTS FEELING BETTER WITH THE OXYGEN ON. FAMILY REMAINS AT BEDSIDE
--- NOTE | 2016-12-22 10:55 | NUR ---
PT MEDICATED WITH 60MG IV LASIX PER ORDER AT THIS TIME
[2016-12-22 11:15] LABS: PTT 46 SEC (25-37)
--- NOTE | 2016-12-22 11:22 | NUR ---
HEPARIN INFUSING PER ORDER AT THIS TIME RATE 26ML/HR
--- NOTE | 2016-12-22 11:22 | History & Physical ---
VALENTINO SIMMONS 12/22/16 1121: General Information and HPI MD Statement: I have seen and personally examined NINA NELSON and documented this H&P. The patient is a 76 year old M who presented with a patient stated chief complaint of worsening dyspnea Source of Information: patient, family, old records History of Present Illness: This is a 76-year-old gentleman with past medical history significant for hypertension, CVA, CHF, rheumatoid arthritis, peptic ulcer and GI bleeding, hypothyroidism, diabetes, who presents to the hospital with worsening dyspnea since this morning. Patient had an appointment at CHF clinic this morning(follows with CHF clinic 2 times a week)., his son found him short of breath, took his blood pressure and oxygen saturation, blood pressure was 180/100 oxygen saturation was low 80s, therefore, he brings the patient to the hospital. The patient reports worsening of orthopnea and lower extremity edema for the past few days. He sees vessel liner, Dr. Chapman as outpatient. He was diagnosed with atrial fibrillation 5 weeks ago and was started on Xarelto which he takes at nights. Upon presentation to the hospital, his oxygen saturation was 85% and he was placed on 4L NC oxygen. At the time of our interview, the patient reports any headache, dizziness, lightheadedness, chest pain, abdominal pain, urinary symptoms. Of note, it is documented in patient's chart that he is allergic to aspirin, per patient's son, this is not a true allergy,it is documented as an allergy because patient developed GI bleeding and peptic ulcer years back while being on aspirin. Allergies/Medications Allergies: Coded Allergies: aspirin (Mild, ULCER 10/13/15) Home Med list Enalapril Maleate (Vasotec) 10 MG TABLET 1 TAB PO DAILY HEART (Reported) Ergocalciferol (Vitamin D2) (Vitamin D2) 50,000 UNIT CAPSULE 1 CAP PO Q2W Supplement (Reported) Folic Acid 1 MG TABLET 2 MG PO DAILY SUPPLEMENT (Reported) Furosemide (Lasix) 40 MG TABLET 0.5 TAB PO BID DIURETIC (Reported) Hydroxychlorquine (Plaquenil) 200 MG TABLET 1 TAB PO BID RA (Reported) Levothyroxine Sodium 0.2 MG TAB 1 TAB PO DAILY THYROID (Reported) Metoprolol Tartrate 25 MG TABLET 12.5 MG PO BID HEART HEALTH Omeprazole 20 MG CAPSULE.DR 1 CAP PO DAILY ACID REFLUX Potassium Chloride (Klor-Con M10) 10 MEQ TAB.ER.PRT 1 TAB PO DAILY Supplement (Reported) Prednisone 10 MG TABLET 0.5 TAB PO DAILY RA Repaglinide (Prandin) 0.5 MG TABLET 1 TAB PO TIDAC DIABETES Hold prandin if you skip a meal Rivaroxaban (Xarelto) 15 MG TABLET 1 TAB PO DAILY A.FIB (Reported) Compliance With Home Meds: GOOD Past History Travel History Traveled to [place] past 21 day No Medical History Neurological: 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 spouse, child Services at Home: None Primary Language: [facility] ETOH Use: denies use Illicit Drug Use: denies illicit drug use Functional Ability ADLs Independent: dressing, eating, toileting, bathing. Ambulation: independent Review of Systems Review of Systems Constitutional: Denies: see HPI. Cardiovascular: Reports: orthopena, peripheral edema. Denies: chest pain, edema, palpitations, syncope. Respiratory: Reports: orthopnea, short of breath. Denies: cough, hemoptysis, sputum production, stridor, wheezing. GI: Denies: see HPI. Genitourinary: Denies: see HPI. Musculoskeletal: Reports: joint pain (chronic RA). Skin: Reports: no symptoms. Neurological/Psychological: Reports: no symptoms. Hematologic/Endocrine: Reports: no symptoms. Immunologic/Allergic: Reports: no symptoms. All Other Systems: Reviewed and Negative Exam & Diagnostic Data Last 24 Hrs of Vital Signs/I&O Vital Signs Date Time Temp Pulse Resp B/P B/P Pulse O2 O2 Flow FiO2 Mean Ox Delivery Rate 12/22 1042 96.8 88 18 127/76 98 Nasal 4.0L Cannula 12/22 1010 88 Room Air 12/22 0952 95 Nasal 4.0L Cannula 12/22 0948 96.0 108 20 128/80 85 Room Air Intake & Output 12/22 1600 12/22 0800 12/22 0000 Intake Total 0 Output Total 200 Balance -200 Intake, Oral 0 Output, Urine 200 Patient 159 lb Weight Weight Estimated Measurement Method Physical Exam General Appearance Alert, Oriented X3, Cooperative, No Acute Distress Skin No Rashes, No Breakdown, No Significant Lesion Skin Temp/Moisture Exam: Warm/Dry Sepsis Skin Exam (color): Normal for Ethnicity HEENT Atraumatic, PERRLA, EOMI, Mucous Membr. moist/pink Neck No thryomegaly, +2 Carotid Pulse wo Bruit, No LAD, JVD Cardiovascular No Murmurs, Irregular Lungs Normal Air Movement, Bibasilar crackles Abdomen Normal Bowel Sounds, Soft, No Tenderness, No Hepatospenomegaly, No Masses Neurological Normal Speech, Strength at 5/5 X4 Ext, Normal Tone, Sensation Intact, Cranial Nerves 3-12 NL, Reflexes 2+ Extremities No Clubbing, No Cyanosis, LE edema B/L Vascular Normal Pulses, Pulses Symmetrical Diagnostic Data EKG Results EKG on admission showed atrial fibrillation rate 92, LBBB (present on previous EKG), QTC 510 CXR Results IMPRESSION: Findings compatible with pulmonary edema and congestive heart failure and small right pleural effusion increased compared with 12/01/2016 Stable right fissural fluid collection Assessment/Plan Assessment: This is a 76-year-old gentleman with past medical history significant for hypertension, CVA, CHF, rheumatoid arthritis, peptic ulcer and GI bleeding, hypothyroidism, diabetes, who presents to the hospital with worsening dyspnea since this morning was noted to have proBNP 4810, chest x-ray showing pulmonary edema. Assessment * CHF exacerbation * Acute hypoxemic respiratory failure * Atrial fibrillation on Xarelto * Diabetes * Hypothyroidism * Hypertension * History of anemia Plan * electronic device monitor * Oxygen supplementation * Strict I's and O's, daily weights * Continue the patient on Xarelto * Patient has received 60 mg IV furosemide in the ED. He is on 20 mg by mouth Lasix daily. Start the patient on 20 mg IV Lasix daily tomorrow. * Will trend troponins and EKG * Will check TSH * Accu-Cheks, insulin sliding scale * Rose Grower, Dr. Chapman aware, please follow his recommendations * Continue with home medications * DVT prophylaxis is being addressed by Zuly * DM diet w/2g daily sodium * Patient is full code As Ranked By This Provider Problem List: 1. Pericardial effusion 2. CHF exacerbation 3. Afib Core Measures/Miscellaneous Acute Coronary Syndrome ACS Diagnosis: No Cerebrovascular Accident CVA/TIA Diagnosis: No Congestive Heart Failure CHF Diagnosis: Yes Date of most recent Echo: 07/01/16 Last Known EF %: 55 MOISES/ARB for EF <40%: Yes VTE (View Protocol) VTE Risk Factors: Age > 40 [facility] prophylaxis d/t: No contraindications No VTE Pharm Prophylaxis d/t: No contraindications VTE Diagnosis: No VTE Type: NONE VTE Confirmed by (Test): NONE Sepsis (View Protocol) Severe Sepsis Present: No Septic Shock Septic Shock Present: No Miscellaneous Documentation Attending Case Discussed With: FABRICIO PEREZ MD Primary Care Physician: ALICE BARNHART MD Patient sees these Specialists Rose Grower Level of Patient Care: Telemetry FABRICIO PEREZ MD 12/22/16 1546: Attending Review Statement Attending Statement Attending MD Statement: examined this patient, discuss w/resident/PA/MANAGER DOCUMENT, agreed w/resident/PA/MANAGER DOCUMENT, reviewed EMR data (avail) Attending Assessment/Plan: Patient seen and examined. Plan of care discussed with the medical team and the patient. Available lab work and radiology test reports were reviewed. This is a 76-year-old gentleman with past medical history significant for hypertension, CVA, CHF, rheumatoid arthritis, peptic ulcer and GI bleeding, hypothyroidism, diabetes, who presents to the hospital with worsening dyspnea since this morning. Patient has been going to CHF clinic twice a week. In the emergency room his evaluation indicated acute exacerbation CHF. Chest x- ray shows signs of congestion and pulmonary edema. Patient received IV Lasix. Currently he is comfortable and is lying in bed. Note that prior echocardiogram has shown 55% ejection fraction. Patient also underwent a nuclear stress testing in July this year which was negative. Vital Signs Date Time Temp Pulse Resp B/P B/P Pulse O2 O2 Flow FiO2 Mean Ox Delivery Rate 12/22 1304 97.8 90 18 126/74 98 Nasal 4.0L Cannula 12/22 1248 98 Nasal 3.0L Cannula 12/22 1248 97 Nasal 3.0L Cannula 12/22 1042 96.8 88 18 127/76 98 Nasal 4.0L Cannula 12/22 1010 88 Room Air 12/22 0952 95 Nasal 4.0L Cannula 12/22 0948 96.0 108 20 128/80 85 Room Air Intake & Output 12/22 1600 12/22 0800 12/22 0000 Intake Total 420 Output Total 800 Balance -380 Intake, IV 20 Intake, Oral 400 Output, Urine 800 Patient 159 lb Weight Weight Estimated Measurement Method Exam: General: Patient awake alert oriented without any distress CVS: S1 plus S2 without any murmur or gallops Chest: Basal crepitation without any wheeze. There is no respiratory distress. Abdomen: Soft nontender, bowel sound present, no guarding or rebound PRINTER HELPER: Awake alert oriented without any focal neuro deficit and follows command appropriately Extremities: 1+ bilateral edema; no clubbing or cyanosis noted Laboratory Tests 12/22 1006 Chemistry Sodium (137 - 145 mmol/L) 141 Potassium (3.5 - 5.1 mmol/L) 3.8 Chloride (98 - 107 mmol/L) 100 Carbon Dioxide (22 - 30 mmol/L) 29 Anion Gap (5 - 16) 12 BUN (9 - 20 mg/dL) 29 H Creatinine (0.7 - 1.2 mg/dL) 1.2 Estimated GFR (>60 ml/min) 59 L BUN/Creatinine Ratio (7 - 25 %) 24.2 Glucose (65 - 99 mg/dL) 150 H Calcium (8.4 - 10.2 mg/dL) 9.0 Total Bilirubin (0.2 - 1.3 mg/dL) 1.6 H AST (17 - 59 U/L) 33 ALT (21 - 72 U/L) 27 Alkaline Phosphatase (< 127 U/L) 170 H Troponin I (<0.11 ng/ml) < 0.01 Urq-[id number]-Qljjhmurkqh Pept (<125 pg/mL) 4810 H Total Protein (6.3 - 8.2 g/dL) 9.3 H Albumin (3.5 - 5.0 g/dL) 3.8 Globulin (1.9 - 4.2 gm/dL) 5.5 H Albumin/Globulin Ratio (1.1 - 2.2 %) 0.7 L TSH (0.270 - 4.200 uIU/mL) 3.170 Coagulation PT (9.4 - 12.5 SEC) 32.0 H INR (0.90 - 1.17) 3.08 H APTT (25 - 37 SEC) 46 H Hematology CBC w Diff NO MAN DIFF REQ WBC (4.8 - 10.8 /CUMM) 9.4 RBC (4.70 - 6.10 /CUMM) 3.59 L Hgb (14.0 - 18.0 G/DL) 9.5 L Hct (42 - 52 %) 30.2 L MCV (80.0 - 94.0 FL) 84.1 MCH (27.0 - 31.0 PG) 26.5 L RDW (11.5 - 14.5 %) 17.5 H Plt Count (130 - 400 /CUMM) 322 MPV (7.4 - 10.4 FL) 7.1 L Gran % (42.2 - 75.2 %) 70.7 Lymphocytes % (20.5 - 51.1 %) 18.2 L Monocytes % (1.7 - 9.3 %) 10.4 H Eosinophils % (0 - 5 %) 0.2 Basophils % (0.0 - 2.0 %) 0.5 Absolute Granulocytes (1.4 - 6.5 /CUMM) 6.6 H Absolute Lymphocytes (1.2 - 3.4 /CUMM) 1.7 Absolute Monocytes (0.10 - 0.60 /CUMM) 1.0 H Absolute Eosinophils (0.0 - 0.7 /CUMM) 0 Absolute Basophils (0.0 - 0.2 /CUMM) 0 PUBS MCHC (33.0 - 37.0 G/DL) 31.6 L Chest x-ray Findings compatible with pulmonary edema and congestive heart failure and small right pleural effusion increased compared with 12/01/2016 Assessment * Acute exacerbation of diastolic CHF * Acute bony edema * History of A. fib on anti-coagulation * Right-sided pleural effusion * History of CVA * History of GI bleed * History of rheumatoid arthritis Plan * Admit to telemetry * Continue IV Lasix 20 mg daily * Cardiology consult * Daily weight input and outputs
--- NOTE | 2016-12-22 11:25 | NUR ---
PT ADMITTED TO ROOM 179-2
[2016-12-22] MEDS ORDERED: XARELTO15 M1 PO (11:41)
[2016-12-22] MEDS ORDERED: PREDNISONE10 M2 PO (11:42)
--- NOTE | 2016-12-22 11:44 | NUR ---
HOUSE STAFF AT [facility]
--- NOTE | 2016-12-22 11:45 | NUR ---
HOUSE STAFF AT BEDSIDE PT URINATED 100CC IN URINAL AT BEDSIDE
--- NOTE | 2016-12-22 11:50 | NUR ---
REPORT GIVEN TO GRUPO ON TELE
[2016-12-22] MEDS ORDERED: SYNTHROID200 MCG PO (11:52)
[2016-12-22] MEDS ORDERED: PLAQUENIL200 M1 PO (11:53)
[2016-12-22] MEDS ORDERED: KLOR-CON M1010 ME1 PO (11:54)
[2016-12-22] MEDS ORDERED: VITAMIN D250000 UNIT PO (11:54)
[2016-12-22 13:04] VITALS: BP 126/74
[2016-12-22 15:30] VITALS: BP 118/68
--- NOTE | 2016-12-22 15:46 | Admission Certification ---
Admission Certification Certification Statement - As attending physician, I certify that at the time of - admission, based on clinical presentation, severity of - symptoms, need for further diagnostic testing and - therapeutic interventions, and risk of adverse outcomes - without in-hospital treatment, in my clinical assessment, - this patient requires an acute hospital stay for a minimum - of two nights or longer. I have also considered psychsocial - factors such as support system, advanced age, financial - issues, cognitive issues, and failed out-patient treatments, - past re-admission history, safety of patient, and lack of - compliance as applicable. Specific rationale supporting this admission is: Acute exacerbation of CHF and hypoxia
--- NOTE | 2016-12-22 17:43 | Cons- Cardiology ---
General Information and HPI Consulting Request Date of Consult: 12/22/16 Requested By: FABRICIO PEREZ MD Reason for Consult: Shortness of breath. Source of Information: patient, family, old records Exam Limitations: language barrier History of Present Illness: Mr. Chris Lomas is a 76-year-old male of [place] descent with a history of right sided stroke at age 45 years complicated by subsequent GI ulceration secondary to aspirin therapy requiring endoscopic intervention, previously treated dyslipidemia, hypertension, hypothyroidism, gastroesophageal reflux disease, rheumatoid arthritis for which he had been on methotrexate, prostate carcinoma for which he is s/p hormone and radiation therapy, previous hemolytic anemia, pericardial tamponade discovered while undergoing a routine outpatient echocardiogram that ultimately led to admission (08/04-08/12/2015) and urgent pericardial window by CT surgery ( Robbie Arevalo M.D.) who has had several subsequent hospitalizations here ( [id number] and 07/22-07/30/2016 for heart failure [HFpEF], recurrent aspiration, etc.) who was recently discovered to be in atrial fibrillation with a controlled ventricular response for which anticoagulation with the factor Xa inhibitor Xarelto was initiated and to have had a significant deterioration in his left ventricular systolic function by echocardiography (EF 30%) performed for worsening complaints shortness of breath performed on 11/08/2016 who presented to the ED today with complaints of worsening shortness of breath on exertion, dry cough, bilateral lower extremity edema, orthopnea, etc., despite his enrollment in the heart wellness clinic where he received IV furosemide on a weekly basis. Of note is the fact that there were concerns of ischemic heart disease and/or constrictive pericarditis playing a role in his previous hospitalizations for heart failure with preserved systolic function. A pharmacologic stress test was performed on 07/28/2016 revealed no evidence of ischemia. An echocardiogram was performed on 07/01/2016 and revealed a normal-sized left ventricle with normal wall thickness and systolic function with some mild anterior wall hypokinesis and ejection fraction of 55%, normal right ventricular size and function, mildly dilated right and moderately dilated left atria, no significant structural valvular abnormalities, no pericardial effusion, and a normal size aortic root. The Doppler portion of the study revealed only trace tricuspid regurgitation with a mildly elevated estimated PA systolic pressure of 38 mmHg, and restrictive left ventricular inflow pattern. A cardiac MR I was also performed at [facility] on 08/15/2016 and revealed a normal-sized left ventricle with normal left ventricular systolic function with EF 57%, nonspecific subendocardial delayed enhancement in the inferior wall near the left ventricula with differential considerations including prior infarct, as well as, nonischemic etiologies including remote myocarditis or rheumatoid arthritis with the subendocardial distribution favoring an infarct in the location at the base a nonischemic etiology, normal right ventricular size and function with RVEF 56%, trace TR, mild biatrial enlargement, borderline mid ascending thoracic aortic aneurysm measuring 4.0 cm, a small pericardial effusion, and a nodular increased signal in the right lung consistent with a possible airspace opacities/atelectasis or discrete lung nodule. Allergies/Medications Allergies: Coded Allergies: aspirin (Mild, ULCER 10/13/15) Home Med List: Enalapril Maleate (Vasotec) 10 MG TABLET 1 TAB PO DAILY HEART (Reported) Ergocalciferol (Vitamin D2) (Vitamin D2) 50,000 UNIT CAPSULE 1 CAP PO Q2W Supplement (Reported) Folic Acid 1 MG TABLET 2 MG PO DAILY SUPPLEMENT (Reported) Furosemide (Lasix) 40 MG TABLET 0.5 TAB PO BID DIURETIC (Reported) Hydroxychlorquine (Plaquenil) 200 MG TABLET 1 TAB PO BID RA (Reported) Levothyroxine Sodium 0.2 MG TAB 1 TAB PO DAILY THYROID (Reported) Metoprolol Tartrate 25 MG TABLET 12.5 MG PO BID HEART HEALTH Omeprazole 20 MG CAPSULE.DR 1 CAP PO DAILY ACID REFLUX Potassium Chloride (Klor-Con M10) 10 MEQ TAB.ER.PRT 1 TAB PO DAILY Supplement (Reported) Prednisone 10 MG TABLET 0.5 TAB PO DAILY RA Repaglinide (Prandin) 0.5 MG TABLET 1 TAB PO TIDAC DIABETES Hold prandin if you skip a meal Rivaroxaban (Xarelto) 15 MG TABLET 1 TAB PO DAILY A.FIB (Reported) Review of Systems Review of Systems: A 14 point system review was obtained and was noncontributory, other than as above. Past History Travel History Traveled to [place] past 21 day No Medical History Blood Transfusion Hx: Yes Neurological: CVA at age of 45 due to hypertension Cardiovascular: CHF, hypertension (pericardial effusion), CARDIOMEGALY Gastrointestinal: upper GI bleed Musculoskeletal: rheumatoid arthritis Endocrine: diabetes, hypothyroidism Blood Disorders: anemia Cancer(s): prostate cancer Surgical History Surgical History: non-contributory Psychosocial History Where Do You Live? Home Who Do You Live With? spouse, child Services at Home: None Primary Language: Yi Smoking Status: Never Smoked ETOH Use: denies use Illicit Drug Use: denies illicit drug use Functional Ability ADLs Independent: dressing, eating, toileting, bathing. Ambulation: independent Exam & Diagnostic Data Vital Signs and I&O Vital Signs Date Time Temp Pulse Resp B/P B/P Pulse O2 O2 Flow FiO2 Mean Ox Delivery Rate 12/22 1706 Nasal 3.0L Cannula 12/22 1530 97.6 101 16 118/68 95 Nasal 4.0L Cannula 12/22 1304 97.8 90 18 126/74 98 Nasal 4.0L Cannula 12/22 1248 98 Nasal 3.0L Cannula 12/22 1248 97 Nasal 3.0L Cannula 12/22 1042 96.8 88 18 127/76 98 Nasal 4.0L Cannula 12/22 1010 88 Room Air 12/22 0952 95 Nasal 4.0L Cannula 12/22 0948 96.0 108 20 128/80 85 Room Air Intake & Output 12/22 1600 12/22 0800 12/22 0000 12/21 1600 12/21 0800 12/21 0000 Intake Total 420 Output Total 800 Balance -380 Intake, IV 20 Intake, Oral 400 Output, Urine 800 Patient 159 lb Weight Weight Estimated Measurement Method Physical Exam: Well-developed, well-nourished elderly male in no acute distress with nasal oxygen in place. Vital signs: See above. HEENT: Normocephalic, atraumatic, EOMI, moist mucous membranes. Neck: No JVD, no bruits. Lungs: Breath sounds bilaterally with crackles at the bases, R>L . Heart: S1, S2 with grade 1/6 systolic murmur and PMI laterally displaced and diffuse. Abdomen: Soft, nontender, positive bowel sounds. Extremities: 2+ bilateral lower extremity edema. Labs/Thomas Results: Laboratory Tests 12/22 12/22 1800 1006 Chemistry Sodium (137 - 145 mmol/L) 141 Potassium (3.5 - 5.1 mmol/L) 3.8 Chloride (98 - 107 mmol/L) 100 Carbon Dioxide (22 - 30 mmol/L) 29 Anion Gap (5 - 16) 12 BUN (9 - 20 mg/dL) 29 H Creatinine (0.7 - 1.2 mg/dL) 1.2 Estimated GFR (>60 ml/min) 59 L BUN/Creatinine Ratio (7 - 25 %) 24.2 Glucose (65 - 99 mg/dL) 150 H Calcium (8.4 - 10.2 mg/dL) 9.0 Total Bilirubin (0.2 - 1.3 mg/dL) 1.6 H AST (17 - 59 U/L) 33 ALT (21 - 72 U/L) 27 Alkaline Phosphatase (< 127 U/L) 170 H Troponin I (<0.11 ng/ml) Pending < 0.01 [id number] Pept (<125 pg/mL) 4810 H Total Protein (6.3 - 8.2 g/dL) 9.3 H Albumin (3.5 - 5.0 g/dL) 3.8 Globulin (1.9 - 4.2 gm/dL) 5.5 H Albumin/Globulin Ratio (1.1 - 2.2 %) 0.7 L TSH (0.270 - 4.200 uIU/mL) 3.170 Coagulation PT (9.4 - 12.5 SEC) 32.0 H INR (0.90 - 1.17) 3.08 H APTT (25 - 37 SEC) 46 H Hematology CBC w Diff NO MAN DIFF REQ WBC (4.8 - 10.8 /CUMM) 9.4 RBC (4.70 - 6.10 /CUMM) 3.59 L Hgb (14.0 - 18.0 G/DL) 9.5 L Hct (42 - 52 %) 30.2 L MCV (80.0 - 94.0 FL) 84.1 MCH (27.0 - 31.0 PG) 26.5 L RDW (11.5 - 14.5 %) 17.5 H Plt Count (130 - 400 /CUMM) 322 MPV (7.4 - 10.4 FL) 7.1 L Gran % (42.2 - 75.2 %) 70.7 Lymphocytes % (20.5 - 51.1 %) 18.2 L Monocytes % (1.7 - 9.3 %) 10.4 H Eosinophils % (0 - 5 %) 0.2 Basophils % (0.0 - 2.0 %) 0.5 Absolute Granulocytes (1.4 - 6.5 /CUMM) 6.6 H Absolute Lymphocytes (1.2 - 3.4 /CUMM) 1.7 Absolute Monocytes (0.10 - 0.60 /CUMM) 1.0 H Absolute Eosinophils (0.0 - 0.7 /CUMM) 0 Absolute Basophils (0.0 - 0.2 /CUMM) 0 PUBS MCHC (33.0 - 37.0 G/DL) 31.6 L Diagnostic Data EKG Results 12/22/2016 atrial fibrillation with ventricular response rate of between 80-110 BPM and LBBB. Rhythm change when compared to previous ECG from 07/27/2016. CXR Results (12/22/2016)There is bilateral airspace disease and increased interstitial markings along with a right pleural effusion increased compared to prior. There is an stable oval opacity overlying the right lung which is stable and correlates with the previously noted lenticular loculated pleural fluid collection in the superior right major fissure. There is calcification of the dorsal aorta. The cardiac silhouette is within the upper limits of normal. Assessment/Plan Assessment/Plan 31-i-q-w-m-w/ hx stroke at age 45 years complicated by GI bleed secondary to ASA Rx, HTN, HLD, hypothyroidism, GERD, RA s/p MTX Rx, prostate ca s/p hormone and radiation therapy, previous hemolytic anemia, pericardial tamponade s/p urgent pericardial window, heart failure [HFpEF], recurrent aspiration, recently discovered AF w/ MVR for which anticoagulation was initiated and to have had a significant deterioration in his LVEF echocardiography (EF 30%) performed for worsening complaints SOB performed on 11/08/2016 who presented to the ED today with complaints of worsening SOB, dry cough, bilateral LE edema, orthopnea , etc., despite his enrollment in the heart wellness clinic where he received IV furosemide on a weekly basis. Of note is the fact that there were concerns of ischemic heart disease and/or constrictive pericarditis playing a role in his previous hospitalizations for heart failure with preserved systolic function w/o evidence of ischemia or pericardial constriction with negative pharmacologic stress testing and cardiac MRI respectively. Suspect his decompensation may be on the basis of atrial fibrillation with more rapid than previously documented ventricular response rates that may have led to a tachycardia mediated cardiomyopathy. He has been anticoagulated with Xarelto for over a month and the plan will be to load him with amiodarone and plan for electrical cardioversion. Recommendations: * Telemetry admission and follow-up troponins, although doubt presentation is on the basis of an acute coronary syndrome. * Load with amiodarone 400 mg by mouth 3 times daily. * Plan for electrical cardioversion this coming Monday (12/26/2016) and make nothing by mouth after midnight Monday night (12/25/2016). * Replete potassium and check magnesium. * Furosemide 40 mg IV twice daily for the next 24 hours and reassess the need for further IV diuresis based on response, BUN/creatinine, potassium, etc. * Continue the rest of his cardiac medications, except by mouth furosemide. * Repeat CXR in a.m. following good diuresis. * DVT prophylaxis being addressed by anticoagulation for his atrial fibrillation. Further recommendations will follow, Thank you. Consult Acknowledgment - Thank you for your consult request.
--- NOTE | 2016-12-23 05:49 | PN- Housestaff ---
Subjective Follow-up For: Acute on chronic CHF - LVEF -30% Atrial fibrillation with controlled ventricular response On Xarelto Complaints: Difficulty in breathing Tele-Events Since Last Visit: Atrial fibrillation, heart rate between 81-114, no any overnight events Subjective: Patient is seen and examined at the bedside. He was feeling much better than yesterday, but she is still having shortness of breath. His leg swelling has been decreased since the time of admission. List of the discussion was done in front of the son who knows [place]. Review of Systems Constitutional: Reports: no symptoms. Respiratory: Reports: short of breath. Objective Last 24 Hrs of Vital Signs/I&O Vital Signs Date Time Temp Pulse Resp B/P B/P Pulse O2 O2 Flow FiO2 Mean Ox Delivery Rate 12/23 1100 87 120/68 12/23 1100 97.6 87 120/68 12/23 1100 97.6 87 16 120/68 12/23 0756 97.6 87 16 104/68 97 Nasal 4.0L Cannula 12/23 0000 96 Nasal 3.0L Cannula 12/22 2114 110 128/60 12/22 2115 110 128/60 12/22 1706 Nasal 3.0L Cannula 12/22 1600 Nasal 3.0L Cannula Intake & Output 12/23 1600 12/23 0800 12/23 0000 Intake Total 360 100 240 Output Total 300 300 Balance 360 -200 -60 Intake, Oral 360 100 240 Output, Urine 300 300 Patient 71.129 kg Weight Weight Standing Scale Measurement Method Physical Exam General Appearance: Alert, Oriented X3, Cooperative, Mild Distress Cardiovascular: Normal S1, Normal S2, murmur present Lungs: bilateral crackles in middle and lower lobe Abdomen: Soft, No Tenderness Neurological: Normal Speech Extremities: No Clubbing, No Cyanosis, bilateral lower leg edema Current Medications: Current Medications Sig/Lenny Start time Last Medication Dose Route Stop Time Status Admin Amiodarone HCl 400 MG TID 12/23 1000 AC 12/23 PO 1100 Amiodarone HCl 300 MG TID 12/22 2200 DC 12/22 PO 2115 Folic Acid 2 MG DAILY 12/22 1343 AC 12/23 PO 1100 Furosemide 20 MG DAILY 12/23 1000 DC IV Furosemide 20 MG ONCE ONE 12/23 0900 DC 12/23 IV 12/23 0901 1111 Furosemide 40 MG 0730,1630 12/23 0730 AC 12/23 IV 0852 Hydroxychloroquine 200 MG BID 12/22 2200 AC 12/23 Sulfate PO 1100 Insulin Aspart 0 TIDAC 12/22 1200 AC 12/23 SC 1227 Levothyroxine Sodium 0.2 MG DAILY AC 12/23 0700 AC 12/23 PO 1101 Lisinopril 10 MG DAILY 12/23 1000 AC 12/23 PO 1100 Magnesium Oxide 400 MG BID 12/23 1353 AC PO Metolazone 2.5 MG ONCE ONE 12/24 0630 AC PO 12/24 0631 Metoprolol Tartrate 12.5 MG BID 12/22 2200 AC 12/23 PO 1100 Omeprazole 20 MG DAILY AC 12/22 1341 AC 12/23 PO 0850 Prednisone 5 MG DAILY 12/22 1341 AC 12/23 PO 1100 Rivaroxaban 15 MG AT BEDTIME 12/23 2200 AC PO Last 24 Hrs of Lab/Thomas Results Last 24 Hrs of Labs/Mics: Laboratory Tests 12/23/16 0030: Troponin I 0.02 12/22/16 2000: Troponin I Cancelled 12/22/16 1800: Troponin I 0.02 Assessment/Plan Assessment: Patient is 76-year-old gentleman with past medical history significant for hypertension, CVA, CHF, rheumatoid arthritis, peptic ulcer and GI bleeding, hypothyroidism, diabetes, who presents to the hospital with worsening dyspnea since 1 day. Assessment - * Acute on chronic CHF - LVEF 30% * Recent onset Atrial fibrillation on Xarelto * Type 2 Diabetes * Hypothyroidism * Hypertension * Hyperlipidemia * GERD * History of CVA, followed by GI bleed secondary to aspirin * Rheumatoid arthritis on methotrexate * History of prostate cancer s/o RT/CT * Anemia of chronic disease * History of pericardial tamponade s/p pericardial window Plan - Atrial fibrillation with controlled ventricular rate * We will continue tablet comment on 400 milligrams 3 times a day * It is planned to do electrical cardioversion on Monday (12/26/2016) * We'll keep patient nothing by mouth from Monday night (12/25/2016) Acute on chronic CHF * We'll continue inj Lasix 40 milligrams IV twice a day * We will start patient on tab metolazone 2.5 milligrams once a day from tomorrow. * We'll repeat chest x-ray * Strict intake output charting * Daily weight measurement Hypothyroidism, type 2 diabetes, hyperlipidemia, -continue all home medication DVT prophylaxis-Xarelto Diet-heart healthy diet. Fluid restriction to 1 liter CODE STATUS-full code Problem List: 1. Hyperlipidemia 2. Hypothyroidism 3. Essential hypertension 4. Rheumatoid arthritis 5. T2DM (type 2 diabetes mellitus) 6. Acute diastolic CHF (congestive heart failure) 7. Afib Pain Ratin Pain Location: chest and joints Pain Goal: Remain pain free Pain Plan: avoid NSAIDs Tomorrow's Labs & Rationales: BEP, Mg, serum cortisol - for f/u DVT/Prophylaxis: mechanical, pharmacological
[2016-12-23 07:56] VITALS: BP 104/68
--- NOTE | 2016-12-23 08:24 | RADIOLOGY REPORT ---
EXAMINATION: XR PORTABLE CHEST CLINICAL INFORMATION: Shortness of breath and tachycardia. COMPARISON: CXR from 12/22/2016 TECHNIQUE: Portable frontal view of the chest was obtained. FINDINGS: Cardiomegaly, large pulmonary vessels and interstitial opacities, suggestive of active pulmonary edema, similar compared to 12/22/2016. Small pleural effusions are not appreciably changed and there is mild bibasilar atelectasis. The calcified aortic arch has an ectatic appearance. No acute skeletal findings. IMPRESSION: Cardiomegaly, interstitial pulmonary edema and small pleural effusions remain similar in appearance compared to 12/22/2016.
--- NOTE | 2016-12-23 10:34 | PN- Att Addend ---
Attending Addendum Attending Brief Note Patient seen and examined. Plan of care discussed with the medical team and the patient. Available lab work and radiology test reports were reviewed. His family is at bedside. Patient reports improvement in difficulty breathing since yesterday. Denies any chest pain fever chills. He remains on oxygen. Vital Signs Date Time Temp Pulse Resp B/P B/P Pulse O2 O2 Flow FiO2 Mean Ox Delivery Rate 12/23 0756 97.6 87 16 104/68 97 Nasal 4.0L Cannula 12/23 0000 96 Nasal 3.0L Cannula 12/22 2115 110 128/60 12/22 2115 110 128/60 12/22 1706 Nasal 3.0L Cannula 12/22 1600 Nasal 3.0L Cannula 12/22 1530 97.6 101 16 118/68 95 Nasal 4.0L Cannula 12/22 1304 97.8 90 18 126/74 98 Nasal 4.0L Cannula 12/22 1248 98 Nasal 3.0L Cannula 12/22 1248 97 Nasal 3.0L Cannula 12/22 1042 96.8 88 18 127/76 98 Nasal 4.0L Cannula Intake & Output 12/23 1600 12/23 0800 12/23 0000 Intake Total 100 240 Output Total 300 300 Balance -200 -60 Intake, Oral 100 240 Output, Urine 300 300 Exam: General: Patient awake alert oriented without any distress CVS: S1 plus S2 without any murmur or gallops Chest: Basal crepitation without any wheeze. There is no respiratory distress. Abdomen: Soft nontender, bowel sound present, no guarding or rebound FUSION JUNCTURE GRINDER: Awake alert oriented without any focal neuro deficit and follows command appropriately Extremities: 1+ bilateral edema; no clubbing or cyanosis noted Laboratory Tests 12/23 12/22 12/22 0030 2000 1800 Chemistry Troponin I (<0.11 ng/ml) 0.02 Cancelled 0.02 Assessment * Acute exacerbation of diastolic CHF * Acute bony edema * History of A. fib on anti-coagulation * Right-sided pleural effusion * History of CVA * History of GI bleed * History of rheumatoid arthritis Plan * Continue IV Lasix 40 mg daily * Cardiology consult note reviewed and plan for cardioversion next week * Daily weight input and outputs * Out of bed to chair * Taper oxygen as tolerated
--- NOTE | 2016-12-23 11:53 | PN- Cardiology ---
Subjective Subjective: Still feels poorly. Has had a modest diuresis thus far on his present diuretic regimen. On telemetry, his ventricular response rates were on the high side last night ( 107-114 bpm), but are this morning. Objective Vital Signs and I&Os Vital Signs Date Time Temp Pulse Resp B/P B/P Pulse O2 O2 Flow FiO2 Mean Ox Delivery Rate 12/23 1100 87 120/68 12/23 1100 97.6 87 120/68 12/23 1100 97.6 87 16 120/68 12/23 0756 97.6 87 16 104/68 97 Nasal 4.0L Cannula 12/23 0000 96 Nasal 3.0L Cannula 12/22 2115 110 128/60 12/22 2115 110 128/60 12/22 1706 Nasal 3.0L Cannula 12/22 1600 Nasal 3.0L Cannula 12/22 1530 97.6 101 16 118/68 95 Nasal 4.0L Cannula 12/22 1304 97.8 90 18 126/74 98 Nasal 4.0L Cannula 12/22 1248 98 Nasal 3.0L Cannula 12/22 1248 97 Nasal 3.0L Cannula Intake & Output 12/23 1600 12/23 0800 12/23 0000 12/22 1600 12/22 0800 12/22 0000 Intake Total 100 240 420 Output Total 300 300 800 Balance -200 -60 -380 Intake, IV 20 Intake, Oral 100 240 400 Output, Urine 300 300 800 Patient 159 lb Weight Weight Estimated Measurement Method Physical Exam: Well-developed, well-nourished elderly male in no acute distress with nasal oxygen in place. Vital signs: See above. HEENT: Normocephalic, atraumatic, EOMI, moist mucous membranes. Neck: No JVD, no bruits. Lungs: Decreased breath sounds bilaterally with crackles at the bases, R>L . Heart: S1, S2 with grade 1/6 systolic murmur and PMI laterally displaced and diffuse. Abdomen: Soft, nontender, positive bowel sounds. Extremities: 2+ bilateral lower extremity edema. Current Medications: Current Medications Sig/Lenny Start time Last Medication Dose Route Stop Time Status Admin Amiodarone HCl 400 MG TID 12/23 1000 AC 12/23 PO 1100 Amiodarone HCl 300 MG TID 12/22 2200 DC 12/22 PO 2115 Folic Acid 2 MG DAILY 12/22 1343 AC 12/23 PO 1100 Furosemide 20 MG DAILY 12/23 1000 DC IV Furosemide 20 MG ONCE ONE 12/23 0900 DC 12/23 IV 12/23 0901 1111 Furosemide 40 MG 0730,1630 12/23 0730 AC 12/23 IV 0852 Hydroxychloroquine 200 MG BID 12/22 2200 AC 12/23 Sulfate PO 1100 Insulin Aspart 0 TIDAC 12/22 1200 AC 12/23 SC 0849 Levothyroxine Sodium 0.2 MG DAILY AC 12/23 0700 AC 12/23 PO 1101 Lisinopril 10 MG DAILY 12/23 1000 AC 12/23 PO 1100 Metoprolol Tartrate 12.5 MG BID 12/22 2200 AC 12/23 PO 1100 Omeprazole 20 MG DAILY AC 12/22 1341 AC 12/23 PO 0850 Prednisone 5 MG DAILY 12/22 1341 AC 12/23 PO 1100 Rivaroxaban 15 MG AT BEDTIME 12/23 2200 AC PO Results Last 48 Hrs of Labs/Mics: Laboratory Tests 12/23/16 0030: Troponin I 0.02 12/22/16 2000: Troponin I Cancelled 12/22/16 1800: Troponin I 0.02 12/22/16 1006: Anion Gap 12, Estimated GFR 59 L, BUN/Creatinine Ratio 24.2, Glucose 150 H, Calcium 9.0, Magnesium 1.8, Total Bilirubin 1.6 H, AST 33, ALT 27, Alkaline Phosphatase 170 H, Troponin I < 0.01, Elx-L-Nqkxsywqatg Pept 4810 H, Total Protein 9.3 H, Albumin 3.8, Globulin 5.5 H, Albumin/Globulin Ratio 0.7 L, TSH 3.170, PT 32.0 H, INR 3.08 H, APTT 46 H, CBC w Diff NO MAN DIFF REQ, RBC 3.59 L, MCV 84.1, MCH 26.5 L, RDW 17.5 H, MPV 7.1 L, Gran % 70.7, Lymphocytes % 18.2 L, Monocytes % 10.4 H, Eosinophils % 0.2, Basophils % 0.5, Absolute Granulocytes 6.6 H, Absolute Lymphocytes 1.7, Absolute Monocytes 1.0 H, Absolute Eosinophils 0, Absolute Basophils 0, PUBS MCHC 31.6 L Recent Imaging Studies: CXR (12/23/2016): Assessment/Plan Assessment/Plan 53-w-f-w-m-w/ hx stroke at age 45 years complicated by GI bleed secondary to ASA Rx, HTN, HLD, hypothyroidism, GERD, RA s/p MTX Rx, prostate ca s/p hormone and radiation therapy, previous hemolytic anemia, pericardial tamponade s/p urgent pericardial window, HF [HFpEF], recurrent aspiration, recently discovered AF w/ MVR for which anticoagulation was initiated and w/ a significant deterioration in his LVEF echocardiography (EF 30%) performed for worsening complaints SOB () who presented to the ED on 12/22/2016 w/ c/o worsening SOB, dry cough, bilateral LE edema, orthopnea, etc., despite his enrollment in the heart wellness clinic where he has received IV furosemide on a 2x weekly basis (60 mg) , along with daily by mouth furosemide (20mg 2 daily). Suspect his decompensation may be on the basis of atrial fibrillation with more rapid than previously documented ventricular response rates that may have led to a tachycardia mediated cardiomyopathy. He has been anticoagulated with Xarelto for over a month and the plan will be to load him with amiodarone and plan for electrical cardioversion probably Monday ( 12/26/2016). Recommendations: * Continue on telemetry telemetry. Note, no evidence of myocardial necrosis by serial troponins. * Continue to load with amiodarone 400 mg by mouth 3 times daily. * Plan for electrical cardioversion this coming Monday (12/26/2016) and make nothing by mouth after midnight Monday night (12/25/2016). * Follow-up potassium and check magnesium and replete as needed. * Continue Furosemide 40 mg IV twice daily and consider the addition of metolazone 2.5-5 mg one half hour before giving the a.m. dosage of IV furosemide for the next 24 hours and reassess the need for further IV diuresis based on response, BUN/creatinine, potassium, etc. * Continue the rest of his cardiac medications, except by mouth furosemide. * Repeat CXR in a.m. following good diuresis. * DVT prophylaxis being addressed by anticoagulation for his atrial fibrillation. Continue telemetry? Yes
--- NOTE | 2016-12-23 14:12 | Cons- Pulmonary ---
General Information and HPI Consulting Request Date of Consult: 12/23/16 Requested By: er and family History of Present Illness: Mr. Chris Lomas is a 76-year-old male of [place] ([place]) descent with a history of right sided stroke at age 45 years complicated by subsequent GI ulceration secondary to aspirin therapy requiring endoscopic intervention, previously treated dyslipidemia, hypertension, hypothyroidism, gastroesophageal reflux disease, rheumatoid arthritis for which he had been on methotrexate, prostate carcinoma for which he is s/p hormone and radiation therapy, previous hemolytic anemia, pericardial tamponade discovered while undergoing a routine outpatient echocardiogram that ultimately led to admission (08/04-08/12/2015) and urgent pericardial window by CT surgery ( Robbie Arevalo M.D.) who has had several subsequent hospitalizations here ([id number]- and 07/22-07/30/2016 for heart failure [HFpEF], recurrent aspiration, etc.) who was recently discovered to be in atrial fibrillation with a controlled ventricular response for which anticoagulation with the factor Xa inhibitor Xarelto was initiated and to have had a significant deterioration in his left ventricular systolic function by echocardiography (EF 30%) performed for worsening complaints shortness of breath performed on 11/08/2016 who presented to the ED with complaints of worsening shortness of breath on exertion, dry cough, bilateral lower extremity edema, orthopnea. After pericardial issues a Recent cardiac MR I was also performed at [facility] on 08/15/2016 and revealed a normal-sized left ventricle with normal left ventricular systolic function with EF 57%, nonspecific subendocardial delayed enhancement in the inferior wall near the left ventricula with differential considerations including prior infarct, as well as, nonischemic etiologies including remote myocarditis or rheumatoid arthritis with the subendocardial distribution favoring an infarct in the location at the base a nonischemic etiology, normal right ventricular size and function with RVEF 56% , trace TR, mild biatrial enlargement, borderline mid ascending thoracic aortic aneurysm measuring 4.0 cm, a small pericardial effusion, and a nodular increased signal in the right lung consistent with a possible airspace opacities/ atelectasis or discrete lung nodule. His cxr does show that he had sig effusions and they appear chronic No cough Pt has sig rheumatoid and has been on steroids Review of Systems Constitutional: Denies: see HPI. Cardiovascular: Reports: orthopena, peripheral edema. Denies: chest pain, edema, palpitations, syncope. Respiratory: Reports: orthopnea, short of breath. Denies: cough, hemoptysis, sputum production, stridor, wheezing. GI: Denies: see HPI. Genitourinary: Denies: see HPI. Musculoskeletal: Reports: joint pain (chronic RA). Skin: Reports: no symptoms. Neurological/Psychological: Reports: no symptoms. Hematologic/Endocrine: Reports: no symptoms. Immunologic/Allergic: Reports: no symptoms. All Other Systems: Reviewed and Negative Allergies/Medications Allergies: Coded Allergies: aspirin (Mild, ULCER 10/13/15) Home Med List: Enalapril Maleate (Vasotec) 10 MG TABLET 1 TAB PO DAILY HEART (Reported) Ergocalciferol (Vitamin D2) (Vitamin D2) 50,000 UNIT CAPSULE 1 CAP PO Q2W Supplement (Reported) Folic Acid 1 MG TABLET 2 MG PO DAILY SUPPLEMENT (Reported) Furosemide (Lasix) 40 MG TABLET 0.5 TAB PO BID DIURETIC (Reported) Hydroxychlorquine (Plaquenil) 200 MG TABLET 1 TAB PO BID RA (Reported) Levothyroxine Sodium 0.2 MG TAB 1 TAB PO DAILY THYROID (Reported) Metoprolol Tartrate 25 MG TABLET 12.5 MG PO BID HEART HEALTH Omeprazole 20 MG CAPSULE.DR 1 CAP PO DAILY ACID REFLUX Potassium Chloride (Klor-Con M10) 10 MEQ TAB.ER.PRT 1 TAB PO DAILY Supplement (Reported) Prednisone 10 MG TABLET 0.5 TAB PO DAILY RA Repaglinide (Prandin) 0.5 MG TABLET 1 TAB PO TIDAC DIABETES Hold prandin if you skip a meal Rivaroxaban (Xarelto) 15 MG TABLET 1 TAB PO DAILY A.FIB (Reported) Review of Systems Review of Systems Constitutional: Reports: see HPI. Past History Travel History Traveled to [place] past 21 day No Medical History Blood Transfusion Hx: Yes Neurological: CVA at age of 45 due to hypertension Cardiovascular: CHF, hypertension (pericardial effusion), CARDIOMEGALY Gastrointestinal: upper GI bleed Musculoskeletal: rheumatoid arthritis Endocrine: diabetes, hypothyroidism Blood Disorders: anemia Cancer(s): prostate cancer Surgical History Surgical History: non-contributory Psychosocial History Where Do You Live? Home Who Do You Live With? spouse, child Services at Home: None Primary Language: Vietnamese Smoking Status: Never Smoked ETOH Use: denies use Illicit Drug Use: denies illicit drug use Functional Ability ADLs Independent: dressing, eating, toileting, bathing. Ambulation: independent Exam & Diagnostic Data Last 24 Hrs of Vital Signs/I&O Vital Signs Date Time Temp Pulse Resp B/P B/P Pulse O2 O2 Flow FiO2 Mean Ox Delivery Rate 12/23 1100 87 120/68 12/23 1100 97.6 87 120/68 12/23 1100 97.6 87 16 120/68 12/23 0756 97.6 87 16 104/68 97 Nasal 4.0L Cannula 12/23 0000 96 Nasal 3.0L Cannula 12/22 2115 110 128/60 12/22 2115 110 128/60 12/22 1706 Nasal 3.0L Cannula 12/22 1600 Nasal 3.0L Cannula 12/22 1530 97.6 101 16 118/68 95 Nasal 4.0L Cannula Intake & Output 12/23 1600 12/23 0800 12/23 0000 Intake Total 100 240 Output Total 300 300 Balance -200 -60 Intake, Oral 100 240 Output, Urine 300 300 Patient 157 lb Weight Weight Standing Scale Measurement Method Last 48 Hrs of Labs/Thomas: Laboratory Tests 12/23/16 0030: Troponin I 0.02 12/22/16 2000: Troponin I Cancelled 12/22/16 1800: Troponin I 0.02 12/22/16 1006: Anion Gap 12, Estimated GFR 59 L, BUN/Creatinine Ratio 24.2, Glucose 150 H, Calcium 9.0, Magnesium 1.8, Total Bilirubin 1.6 H, AST 33, ALT 27, Alkaline Phosphatase 170 H, Troponin I < 0.01, Ncd-M-Ixqbkevxmng Pept 4810 H, Total Protein 9.3 H, Albumin 3.8, Globulin 5.5 H, Albumin/Globulin Ratio 0.7 L, TSH 3.170, PT 32.0 H, INR 3.08 H, APTT 46 H, CBC w Diff NO MAN DIFF REQ, RBC 3.59 L, MCV 84.1, MCH 26.5 L, RDW 17.5 H, MPV 7.1 L, Gran % 70.7, Lymphocytes % 18.2 L, Monocytes % 10.4 H, Eosinophils % 0.2, Basophils % 0.5, Absolute Granulocytes 6.6 H, Absolute Lymphocytes 1.7, Absolute Monocytes 1.0 H, Absolute Eosinophils 0, Absolute Basophils 0, PUBS MCHC 31.6 L Assessment/Plan Impression/Plan: Physical Exam General Appearance Alert, Oriented X3, Cooperative, No Acute Distress Skin No Rashes, No Breakdown, No Significant Lesion Skin Temp/Moisture Exam: Warm/Dry Sepsis Skin Exam (color): Normal for Ethnicity HEENT Atraumatic, PERRLA, EOMI, Mucous Membr. moist/pink Neck No thryomegaly, +2 Carotid Pulse wo Bruit, No LAD, JVD Cardiovascular No Murmurs, Irregular Lungs Normal Air Movement, Bibasilar crackles Abdomen Normal Bowel Sounds, Soft, No Tenderness, No Hepatospenomegaly, No Masses Neurological Normal Speech, Strength at 5/5 X4 Ext, Normal Tone, Sensation Intact, Cranial Nerves 3-12 NL, Reflexes 2+ Extremities No Clubbing, No Cyanosis, LE edema B/L Vascular Normal Pulses, Pulses Symmetrical 76 hx stroke at age 45 years complicated by GI bleed secondary to ASA Rx, HTN, HLD, hypothyroidism, GERD, RA s/p MTX Rx, prostate ca s/p hormone and radiation therapy, previous hemolytic anemia, pericardial tamponade s/p urgent pericardial window, heart failure [HFpEF], recurrent aspiration, recently discovered AF w/ MVR for which anticoagulation was initiated and to have had a significant deterioration in his LVEF echocardiography (EF 30%) performed for worsening complaints SOB performed on 11/08/2016 who presented to the ED today with complaints of worsening SOB, dry cough, bilateral LE edema, orthopnea. HIstory of sig RA on MTX, Chronic loculated effusion both sides due to inflammatory path due to RA, diabetes, coronary artery disease with * CHF with low ef with afib with RVR with tachy mediated heart disease on anticoag * CKD * He has had previous history of pericardial window. THis is related to sig RA with sig serositis * On off aspiration in the past * Bilateral loculated pleural effusion in the fissure related to inflammatory process, and the pathology is prob the same as his the pathology which caused his pericardial effusion i.e. rheumatoid arthritis. His TB cultures have been negative in the past. There is no clear evidence suggestive of empyema or significant pulmonary malignancy, cytology neg from pericardial window * Prior granulomatous lung disease with mild emphysema * Sig microcytic anemia with prob anemia of chronic disease, Previous history of hemolytic anemia * Sig history of RHeumatoid and hence immunosuppressed, was on MTX. Has been on steroids before * Chronic kidney disease stage II, with diabetes with mild proteinuria and hypertension * History of prostate ca REC cont diuresis No tap for effusions needed Check random cortisol level if low start prednisone 15 mg daily and slow taper Watch for HIgh bicarb Keep potassium more than 4 OK for amiodarone IV lasix rpt cxr in 1-2 days WIll follow prn Call for issues Consult Acknowledgment - Thank you for your consult request.
[2016-12-23 16:11] VITALS: BP 100/60
[2016-12-24 00:48] VITALS: BP 88/52
--- NOTE | 2016-12-24 05:03 | PN- Housestaff ---
NOBLE TELLES,AARON 12/24/16 0502: Subjective Follow-up For: Acute on chronic CHF - LVEF -30% Atrial fibrillation with controlled ventricular response On Xarelto Complaints: no complaints Tele-Events Since Last Visit: Atrial fibrillation, Heart rate -68 -78, no any overnight events Subjective: Patient is seen and examined at the bed side and most of the conversation was done through phone as son was interpretating it. He feels that he is feeling much better as before. His urine out put is adequate. His creatinine went up than before from 1.2 to 1.9. So we holded lasix today and tmr we will follow creatinine and decide for lasix. We will conrtine rest of medication as before. In mrg his BP was also low - 80/40 so we holded metoprolol. Review of Systems Constitutional: Denies: no symptoms. Objective Last 24 Hrs of Vital Signs/I&O Vital Signs Date Time Temp Pulse Resp B/P B/P Pulse O2 O2 Flow FiO2 Mean Ox Delivery Rate 12/24 1706 97.6 75 20 90/60 98 Nasal 3.0L Cannula 12/24 1643 88 94/54 12/24 1600 Nasal 4.0L Cannula 12/24 1158 80 88/54 12/24 1007 70 88/54 12/24 0847 90 88/54 12/24 0834 97.4 65 18 84/54 95 Nasal 3.0L Cannula 12/24 0048 98.1 62 16 88/52 96 Nasal Cannula 12/24 0000 95 Nasal 3.0L Cannula 12/23 2206 77 90/58 12/23 2200 62 88/52 Intake & Output 12/24 1600 12/24 0800 12/24 0000 Intake Total 400 474 Output Total 300 250 Balance 100 -250 474 Intake, IV 14 Intake, Oral 400 460 Output, Urine 300 250 Patient 71.668 kg Weight Weight Standing Scale Measurement Method Physical Exam General Appearance: Alert, Cooperative, No Acute Distress Cardiovascular: Normal S1, Normal S2, murmur present Lungs: bilateral basilar crackles in bases Abdomen: Soft, No Tenderness Extremities: No Clubbing, No Cyanosis, mild edema Current Medications: Current Medications Sig/Lenny Start time Last Medication Dose Route Stop Time Status Admin Amiodarone HCl 400 MG TID 12/23 1000 AC 12/24 PO 1643 Folic Acid 2 MG DAILY 12/22 1343 AC 12/24 PO 0847 Furosemide 40 MG 0730,1630 12/23 0730 DC 12/24 IV 0644 Hydroxychloroquine 200 MG BID 12/22 2200 AC 12/24 Sulfate PO 0847 Insulin Aspart 0 TIDAC 12/22 1200 AC 12/24 SC 1710 Levothyroxine Sodium 0.2 MG DAILY AC 12/23 0700 AC 12/24 PO 0644 Lisinopril 10 MG DAILY 12/23 1000 AC 12/23 PO 1100 Magnesium Oxide 400 MG BID 12/23 1353 AC 12/24 PO 0847 Metolazone 2.5 MG DAILY 12/25 1000 AC PO Metolazone 2.5 MG ONCE ONE 12/24 0630 DC 12/24 PO 12/24 0631 0645 Metoprolol Tartrate 12.5 MG BID 12/22 2200 AC 12/23 PO 1100 Omeprazole 20 MG DAILY AC 12/22 1341 AC 12/24 PO 0644 Prednisone 5 MG DAILY 12/22 1341 AC 12/24 PO 0847 Rivaroxaban 15 MG AT BEDTIME 12/23 2200 AC 12/23 PO 2109 Last 24 Hrs of Lab/Thomas Results Last 24 Hrs of Labs/Mics: Laboratory Tests 12/24/16 0605: Anion Gap 11, Estimated GFR 34 L, BUN/Creatinine Ratio 24.2, Magnesium 2.0, Cortisol AM Sample 17.3, CBC w Diff NO MAN DIFF REQ, RBC 3.29 L, MCV 84.5, MCH 26.4 L, RDW 17.2 H, MPV 7.6, Gran % 63.0, Lymphocytes % 25.0, Monocytes % 11.4 H, Eosinophils % 0, Basophils % 0.6, Absolute Granulocytes 5.3, Absolute Lymphocytes 2.1, Absolute Monocytes 1.0 H, Absolute Eosinophils 0, Absolute Basophils 0.1, PUBS MCHC 31.3 L Assessment/Plan Assessment: Patient is 76-year-old gentleman with past medical history significant for hypertension, CVA, CHF, rheumatoid arthritis, peptic ulcer and GI bleeding, hypothyroidism, diabetes, who presents to the hospital with worsening dyspnea since 1 day. Assessment - * Acute on chronic CHF - LVEF 30% * Recent onset Atrial fibrillation on Xarelto * Type 2 Diabetes * Hypothyroidism * Hypertension * Hyperlipidemia * GERD * History of CVA, followed by GI bleed secondary to aspirin * Rheumatoid arthritis on methotrexate * History of prostate cancer s/o RT/CT * Anemia of chronic disease * History of pericardial tamponade s/p pericardial window Plan - Atrial fibrillation with controlled ventricular rate * We will continue tablet amiodarone 400 milligrams 3 times a day * It is planned to do electrical cardioversion on Monday (12/26/2016) * We'll keep patient nothing by mouth from Monday night (12/25/2016) Acute on chronic CHF * We'll hold inj Lasix 40 milligrams IV twice a day as his cr increased to 1.9 * We will cont tab metolazone 2.5 milligrams once a day. * CXR is showing worsening CHF. We'll repeat chest x-ray tmr * Strict intake output charting * Daily weight measurement Hypothyroidism, type 2 diabetes, hyperlipidemia, -continue all home medication DVT prophylaxis-Xarelto Diet-heart healthy diet. Fluid restriction to 1 liter CODE STATUS-full code Problem List: 1. CHF exacerbation 2. T2DM (type 2 diabetes mellitus) 3. Afib Pain Ratin Pain Location: not applicable Pain Goal: Remain pain free Pain Plan: avoid NSAIDs Tomorrow's Labs & Rationales: BEP for f/u DVT/Prophylaxis: mechanical, pharmacological BRIDGER BRYSON 12/24/16 1055: Attending MD Review Statement Attending Statement Attending MD Statement: examined this patient, discuss w/resident/PA/[employer] PEST CONTROL SPECIALIST, agreed w/resident/PA/[employer] PEST CONTROL SPECIALIST, discussed with family, reviewed EMR data (avail), discussed with nursing, discussed with case mgmt, reviewed images, amended to note Attending Assessment/Plan: ASSESSMENT Acute exacerbation of diastolic CHF Acute bony edema History of A. fib on anti-coagulation Right-sided pleural effusion History of CVA History of GI bleed History of rheumatoid arthritis Acute kidney injury PLAN HOLD lasix for now, f/u cardiology. monitor creatinine Cardiology plan for cardioversion next week Daily weight input and outputs Out of bed to chair Taper oxygen as tolerated gi/dvt prophyalxis
[2016-12-24 08:13] LABS: ABSOLUTE BASOPHIL COUNT 0.1 /CUMM (0.0-0.2); ABSOLUTE EOSINOPHIL COUNT 0 /CUMM (0.0-0.7); ABSOLUTE GRANULOCYTE CT 5.3 /CUMM (1.4-6.5); ABSOLUTE LYMPH COUNT 2.1 /CUMM (1.2-3.4); BASOPHIL % 0.6 % (0.0-2.0); EOSINOPHIL % 0 % (0-5); HEMATOCRIT 27.8 % (42-52); MEAN CORPUSCULAR HGB 26.4 PG (27.0-31.0); MEAN CORPUSCULAR HGB CONC 31.3 G/DL (33.0-37.0); MEAN CORPUSCULAR VOLUME 84.5 FL (80.0-94.0); MEAN PLATELET VOLUME 7.6 FL (7.4-10.4); PLATELET COUNT 300 /CUMM (130-400); RBC DISTRIBUTION WIDTH 17.2 % (11.5-14.5); RED BLOOD CELL CT 3.29 /CUMM (4.70-6.10); WHITE BLOOD CELL COUNT 8.4 /CUMM (4.8-10.8)
[2016-12-24 08:34] VITALS: BP 84/54
--- NOTE | 2016-12-24 11:21 | RADIOLOGY REPORT ---
EXAMINATION: XR CHEST CLINICAL INFORMATION: Shortness of breath COMPARISON: Previous chest x-rays most recent from yesterday TECHNIQUE: 2 views of the chest were obtained. FINDINGS: The cardiac silhouette is enlarged. There is increasing pulmonary venous redistribution, mixed alveolar and interstitial pulmonary edema and bilateral pleural effusions suggestive of worsening CHF. There is increasing loculated fluid seen right pleural fissure. There are degenerative changes of the spine. There is an old lower thoracic probably T11 vertebral body compression fracture. IMPRESSION: Worsening CHF.
--- NOTE | 2016-12-24 16:40 | PN- Cardiology ---
Subjective Subjective: Feels unchanged and generally poorly. Remains in atrial fibrillation on telemetry. Objective Vital Signs and I&Os Vital Signs Date Time Temp Pulse Resp B/P B/P Pulse O2 O2 Flow FiO2 Mean Ox Delivery Rate 12/24 1158 80 88/54 12/24 1007 70 88/54 12/24 0847 90 88/54 12/24 0834 97.4 65 18 84/54 95 Nasal 3.0L Cannula 12/24 0048 98.1 62 16 88/52 96 Nasal Cannula 12/24 0000 95 Nasal 3.0L Cannula 12/23 2206 77 90/58 12/23 2200 62 88/52 Intake & Output 12/24 1600 12/24 0800 12/24 0000 12/23 1600 12/23 0800 12/23 0000 Intake Total 400 340 494 100 240 Output Total 300 250 300 300 Balance 100 -250 340 494 -200 -60 Intake, IV 14 Intake, Oral 400 340 480 100 240 Output, Urine 300 250 300 300 Patient 158 lb 157 lb Weight Weight Standing Scale Standing Scale Measurement Method Physical Exam: Well-developed, well-nourished elderly male in no acute distress with nasal oxygen in place. Vital signs: See above. HEENT: Normocephalic, atraumatic, EOMI, moist mucous membranes. Neck: No JVD, no bruits. Lungs: Decreased breath sounds bilaterally with crackles at the bases, R>L . Heart: S1, S2 with grade 1/6 systolic murmur and PMI laterally displaced and diffuse. Abdomen: Soft, nontender, positive bowel sounds. Extremities: 2+ bilateral lower extremity edema. Current Medications: Current Medications Sig/Lenny Start time Last Medication Dose Route Stop Time Status Admin Amiodarone HCl 400 MG TID 12/23 1000 AC 12/24 PO 0847 Folic Acid 2 MG DAILY 12/22 1343 AC 12/24 PO 0847 Furosemide 40 MG 0730,1630 12/23 0730 DC 12/24 IV 0644 Hydroxychloroquine 200 MG BID 12/22 2200 AC 12/24 Sulfate PO 0847 Insulin Aspart 0 TIDAC 12/22 1200 AC 12/24 SC 1155 Levothyroxine Sodium 0.2 MG DAILY AC 12/23 0700 AC 12/24 PO 0644 Lisinopril 10 MG DAILY 12/23 1000 AC 12/23 PO 1100 Magnesium Oxide 400 MG BID 12/23 1353 AC 12/24 PO 0847 Metolazone 2.5 MG ONCE ONE 12/24 0630 DC 12/24 PO 12/24 0631 0645 Metoprolol Tartrate 12.5 MG BID 12/22 2200 AC 12/23 PO 1100 Omeprazole 20 MG DAILY AC 12/22 1341 AC 12/24 PO 0644 Prednisone 5 MG DAILY 12/22 1341 AC 12/24 PO 0847 Rivaroxaban 15 MG AT BEDTIME 12/23 2199 AC 12/23 PO 2109 Results Last 48 Hrs of Labs/Mics: Laboratory Tests 12/24/16 0605: Anion Gap 11, Estimated GFR 34 L, BUN/Creatinine Ratio 24.2, Magnesium 2.0, Cortisol AM Sample 17.3, CBC w Diff NO MAN DIFF REQ, RBC 3.29 L, MCV 84.5, MCH 26.4 L, RDW 17.2 H, MPV 7.6, Gran % 63.0, Lymphocytes % 25.0, Monocytes % 11.4 H, Eosinophils % 0, Basophils % 0.6, Absolute Granulocytes 5.3, Absolute Lymphocytes 2.1, Absolute Monocytes 1.0 H, Absolute Eosinophils 0, Absolute Basophils 0.1, PUBS MCHC 31.3 L 12/23/16 0030: Troponin I 0.02 12/22/16 2000: Troponin I Cancelled 12/22/16 1800: Troponin I 0.02 Recent Imaging Studies: CXR (12/24/2016): The cardiac silhouette is enlarged. There is increasing pulmonary venous redistribution, mixed alveolar and interstitial pulmonary edema and bilateral pleural effusions suggestive of worsening CHF. There is increasing loculated fluid seen right pleural fissure. There are degenerative changes of the spine. There is an old lower thoracic probably T11 vertebral body compression fracture. Assessment/Plan Assessment/Plan [id number]/ hx stroke at age 45 years complicated by GI bleed secondary to ASA Rx, HTN, HLD, hypothyroidism, GERD, RA s/p MTX Rx, prostate ca s/p hormone and radiation therapy, previous hemolytic anemia, pericardial tamponade s/p urgent pericardial window, HF [HFpEF], recurrent aspiration, recently discovered AF w/ MVR for which anticoagulation was initiated and w/ a significant deterioration in his LVEF echocardiography (EF 30%) performed for worsening complaints SOB () who presented to the ED on 12/22/2016 w/ c/o worsening SOB, dry cough, bilateral LE edema, orthopnea, etc., despite his enrollment in the heart wellness clinic where he has received IV furosemide on a 2x weekly basis (60 mg) , along with daily by mouth furosemide (20mg 2 daily). Suspect his decompensation may be on the basis of atrial fibrillation with more rapid than previously documented ventricular response rates that may have led to a tachycardia mediated cardiomyopathy. He has been anticoagulated with Xarelto for over a month and the plan will be to load him with amiodarone and plan for electrical cardioversion probably Monday ( 12/26/2016). Recommendations: * Continue on telemetry telemetry. Note, no evidence of myocardial necrosis by serial troponins. * Continue to load with amiodarone 400 mg by mouth 3 times daily. * Plan for electrical cardioversion this coming Monday (12/26/2016) and make nothing by mouth after midnight Monday night (12/25/2016). * Follow-up potassium and check magnesium and replete as needed. * Continue Furosemide 40 mg IV twice daily and consider the addition of metolazone 2.5-5 mg one half hour before giving the a.m. dosage of IV furosemide for the next 24 hours and reassess the need for further IV diuresis based on response, BUN/creatinine, potassium, etc. * Continue the rest of his cardiac medications, except by mouth furosemide. * Repeat CXR in a.m. following good diuresis. * DVT prophylaxis being addressed by anticoagulation for his atrial fibrillation. Continue telemetry? Yes
[2016-12-24 17:06] VITALS: BP 90/60
[2016-12-25 01:27] VITALS: BP 90/48
[2016-12-25 08:17] VITALS: BP 90/60
--- NOTE | 2016-12-25 09:13 | PN- Housestaff ---
RAUL TELLES,SUJATHA 12/25/16 0913: Subjective Follow-up For: CHF exacerbation Complaints: no complaints Tele-Events Since Last Visit: Atrial flutter, atrial fibrillation, heart rate ranging from 75-91, no overnight events. Subjective: I followed up with the patient today. Patient is predominantly [place] speaking, scanty and less speaking gentleman, who needed translation. He did not offer any complaints. His vitals have been stable, no overnight events. Of note, his BUN/creatinine increased from 46 over 1.9-64 over 2.7 today. Review of Systems Constitutional: Reports: no symptoms. Objective Last 24 Hrs of Vital Signs/I&O Vital Signs Date Time Temp Pulse Resp B/P B/P Pulse O2 O2 Flow FiO2 Mean Ox Delivery Rate 12/25 2124 98.0 87 20 100/60 96 Nasal 2.0L Cannula 12/25 2119 80 100/60 12/25 1630 97.5 93 20 100/56 96 Nasal 2.0L Cannula 12/25 1609 95 Nasal 2.0L Cannula 12/25 1543 100/54 12/25 1036 70 90/52 12/25 1036 70 90/52 12/25 0935 90/52 12/25 0839 94 Nasal 3.0L Cannula 12/25 0817 97.6 83 18 /60 97 Nasal 3.0L Cannula 12/25 0127 97.4 73 18 /48 96 Nasal Cannula 12/25 0000 Nasal 3.0L Cannula Intake & Output 12/25 1600 12/25 0800 12/25 0000 Intake Total 400 100 495 Output Total 450 50 400 Balance -50 50 95 Intake, IV 15 Intake, Oral 400 100 480 Output, Urine 450 50 400 Patient 73.936 kg Weight Weight Standing Scale Measurement Method Physical Exam General Appearance: Alert, Oriented X3, Cooperative, No Acute Distress Other Physical Findings: Normal physical findings, except for bilateral leg edema and the patient is requiring additional oxygen via nasal cannula at 2 L/m. Current Medications: Current Medications Sig/Lenny Start time Last Medication Dose Route Stop Time Status Admin Amiodarone HCl 400 MG TID 12/23 1000 AC 12/25 PO 2118 Folic Acid 2 MG DAILY 12/22 1343 AC 12/25 PO 934 Hydroxychloroquine 200 MG BID 12/22 2199 AC 12/25 Sulfate PO 2119 Insulin Aspart 0 TIDAC 12/22 1200 AC 12/25 SC 12/25 2355 1617 Insulin Human Regular 0 Q6 12/26 0600 DC SC Insulin Human Regular 0 Q6 12/26 0000 AC SC Levothyroxine Sodium 0.2 MG DAILY AC 12/23 0700 AC 12/25 PO 0630 Lisinopril 10 MG DAILY 12/23 1000 DC 12/23 PO 1100 Magnesium Oxide 400 MG BID 12/23 1353 AC 12/25 PO 2119 Metolazone 2.5 MG DAILY 12/25 1000 DC 12/25 PO 1035 Metoprolol Tartrate 12.5 MG BID 12/22 2200 DC 12/23 PO 1100 Omeprazole 20 MG DAILY AC 12/22 1341 AC 12/25 PO 0630 Prednisone 5 MG DAILY 12/22 1341 AC 12/25 PO 0935 Rivaroxaban 15 MG AT BEDTIME 12/23 2200 AC 12/25 PO 2119 Last 24 Hrs of Lab/Thomas Results Last 24 Hrs of Labs/Mics: Laboratory Tests 12/25/16 1654: Urine Color YEL, Urine Clarity CLDY H, Urine pH 6.0, Ur Specific Mina >= 1.030, Urine Protein 30 H, Urine Ketones TRACE H, Urine Nitrite POS H, Urine Bilirubin NEG, Urine Urobilinogen 1.0, Ur Leukocyte Esterase NEG, Ur Microscopic SEDIMENT EXAMINED, Urine RBC 1-3, Urine WBC 5-10 H, Ur Epithelial Cells MANY H , Urine Bacteria MANY H, Urine Mucus FEW, Urine Hemoglobin TRACE-LYSED H, Urine Glucose NEG 12/25/16 0650: Anion Gap 8, Estimated GFR 23 L, BUN/Creatinine Ratio 23.7 Assessment/Plan Assessment: Patient is 76-year-old gentleman with past medical history significant for hypertension, CVA, CHF, rheumatoid arthritis, peptic ulcer and GI bleeding, hypothyroidism, diabetes, who presents to the hospital with worsening dyspnea since 1 day. Assessment - * Acute on chronic CHF - LVEF 30% * Recent onset Atrial fibrillation on Xarelto * Type 2 Diabetes * Hypothyroidism * Hypertension * Hyperlipidemia * GERD * History of CVA, followed by GI bleed secondary to aspirin * Rheumatoid arthritis on methotrexate * History of prostate cancer s/o RT/CT * Anemia of chronic disease * History of pericardial tamponade s/p pericardial window Plan - Atrial fibrillation with controlled ventricular rate * We will continue tablet amiodarone 400 milligrams 3 times a day * It is planned to do electrical cardioversion on Monday (12/26/2016), so NPO from ADENIKE levin. * Patient to know about the timing for cardeioversion tomorrow AM, and IV fluids to be determined accordingly. No overnight IV fluids as the pt has CHF. Of note, he is diabetic. Acute on chronic CHF * We'll hold inj Lasix 40 milligrams IV twice a day as his Creatinine increased. Most likely cardio renal syndrome. Nephrology consulted today. * Alternative plan to transfer the patient to the ICU to start him on dobutamine drip, and/or pressors, to improve his cardiac function. This might take care of all his cardiorenal syndrome as well as the kidney perfusion increases. This can be considered if patient does not improve tomorrow after holding Lasix or after the patient gets cardioverted. This was discussed with senior data architect Alex Chapman MD today. * We will cont tab metolazone 2.5 milligrams once a day. * CXR is shows better in regards to CHF. * Strict intake output charting * Daily weight measurement * Will follow Cardio recs Hypothyroidism, type 2 diabetes, hyperlipidemia, -continue all home medication DVT prophylaxis-Xarelto Diet-heart healthy diet. Fluid restriction to 1 liter CODE STATUS-full code Problem List: 1. CHF (congestive heart failure) 2. Cardiorenal syndrome Pain Ratin Pain Location: - Pain Goal: Pain 4 or less Pain Plan: prn Tomorrow's Labs & Rationales: BEP, CBC BRIDGER BRYSON 12/25/16 1156: Attending MD Review Statement Attending Statement Attending MD Statement: examined this patient, discuss w/resident/PA/ASSISTANT VICE PRESIDENT, agreed w/resident/PA/ASSISTANT VICE PRESIDENT, discussed with family, reviewed EMR data (avail), discussed with nursing, discussed with case mgmt, reviewed images, amended to note Attending Assessment/Plan: ASSESSMENT Acute exacerbation of diastolic CHF Acute bony edema History of A. fib on anti-coagulation Right-sided pleural effusion History of CVA History of GI bleed History of rheumatoid arthritis Acute kidney injury PLAN HOLD lasix for now, f/u cardiology. Cr worsening. monitor creatinine, CONSULT Nehprology Cardiology plan for cardioversion for coming Monday. Daily weight input and outputs Out of bed to chair Taper oxygen as tolerated gi/dvt prophyalxis
--- NOTE | 2016-12-25 13:13 | RADIOLOGY REPORT ---
EXAMINATION: XR CHEST CLINICAL INFORMATION: Shortness of breath. CHF. COMPARISON: Previous chest x-rays most recent from yesterday TECHNIQUE: 2 views of the chest were obtained. FINDINGS: The cardiac silhouette is enlarged but stable. There is interval decrease in pulmonary venous redistribution and mixed alveolar and interstitial disease suggestive of clearing pulmonary edema. There are still bilateral small pleural effusions that appear unchanged with probable loculated fluid in the right major fissure. There are degenerative changes spine. IMPRESSION: Improved pulmonary edema compared to yesterdays exam.
--- NOTE | 2016-12-25 15:42 | ULTRASOUND REPORT ---
EXAMINATION: US RETROPERITONEAL COMPLETE (RENAL) CLINICAL INFORMATION: Acute kidney injury. Evaluate for causes of renal failure such as obstruction. COMPARISON: Multiple priors, most recent renal ultrasound dated 07/23/2016. TECHNIQUE: Real-time imaging of the kidneys and bladder. FINDINGS: RIGHT KIDNEY: 9.4 x 4.2 x 3.9 cm (SAG x AP x TRV). The kidney is normal in size, contour, and echogenicity. Renal cortical thickness is normal. No focal parenchymal lesions. A 0.6 cm hyperechoic, shadowing structure seen within the lower pole, consistent with a calcification. No hydronephrosis. LEFT KIDNEY: 9.9 x 5.2 x 4.5 cm (SAG x AP x TRV). The kidney is normal in size, contour, and echogenicity. Renal cortical thickness is normal. No calculi or focal parenchymal lesions. No hydronephrosis. BLADDER: Nondistended. Ureteral jets were not identified. There is trace free fluid in the pelvis. IMPRESSION: 1. Nonobstructing stone within the lower pole of the right kidney. No hydronephrosis. 2. No left-sided hydronephrosis or nephrolithiasis. 3. Trace free fluid in the pelvis.
--- NOTE | 2016-12-25 16:11 | Cons- Nephrology ---
General Information and HPI Consulting Request Date of Consult: 12/25/16 Requested By: FABRICIO PEREZ MD Reason for Consult: XI Source of Information: family, old records Exam Limitations: language barrier History of Present Illness: The patient is a 76-year-old man with a past medical history most significant for baseline normal renal function with a baseline creatinine approximately 1.0- 1.2, previously heart failure with preserved ejection fraction (non-ischemic as per 07/2016 stress test) however now in new onset atrial fibrillation with a significant deterioration in his LVEF to 30% as assessed in October 2016, prior pericardial effusion status post window in August 2015, hypertension, GERD, rheumatoid arthritis previously on methotrexate, prostate carcinoma status post hormone and radiation therapy who initially presented to on 12/22 with shortness of breath and increased b/l LE edema despite receiving IV diuretics weekly in heart failure clinic as an outpatient. On presentation, initial blood pressure 128/80 with a heart rate of 108. Labs notable for serum creatinine 1.2, bicarbonate 29, negative troponin, hemoglobin 9.5. The patient was started on IV diuretics. He initially received 60 mg IV the first day, 20 mg IV second day, and then 40 mg IV BID on the third day + 2.5mg metolazone, and then received no lasix but did get 2.5mg PO metolazone today. With this therapy, his blood pressure dropped to 88/52 on 12/23 and has remained mostly in the 80s to 90s systolic since that time. His heart rates have mostly been in the 70s to 80s. His weight is technically up by 4 pounds. Unfortunately history and creatinine went from 1.2 on 12/22 to 1.9 on 12/24 to 2.7 on 12/25. Chest x-ray done today still with increased interstitial markings, increased vascularity, and b/l small pleural effusions (on my read) but noted by the radiologist to be improved compared to the prior. Renal ultrasound was performed demonstrating right kidney 9.4 cm and left kidney 9.9 cm without any hydronephrosis. The bladder was nondistended. It did note a nonobstructing stone in the lowerpole of the right kidney.. The patient was seen laying flat, symptomatically saying that his breathing is better and his family noted that his lower extremity edema is better as well. No chest pain although he did note that he had a sharp pain prior to presenting. He denies any urinary symptoms. There is no urinalysis for review during this admissionprior UAs with negative to 30 mix per deciliter protein. Allergies/Medications Allergies: Coded Allergies: aspirin (Mild, ULCER 10/13/15) Home Med List: Enalapril Maleate (Vasotec) 10 MG TABLET 1 TAB PO DAILY HEART (Reported) Ergocalciferol (Vitamin D2) (Vitamin D2) 50,000 UNIT CAPSULE 1 CAP PO Q2W Supplement (Reported) Folic Acid 1 MG TABLET 2 MG PO DAILY SUPPLEMENT (Reported) Furosemide (Lasix) 40 MG TABLET 0.5 TAB PO BID DIURETIC (Reported) Hydroxychlorquine (Plaquenil) 200 MG TABLET 1 TAB PO BID RA (Reported) Levothyroxine Sodium 0.2 MG TAB 1 TAB PO DAILY THYROID (Reported) Metoprolol Tartrate 25 MG TABLET 12.5 MG PO BID HEART HEALTH Omeprazole 20 MG CAPSULE.DR 1 CAP PO DAILY ACID REFLUX Potassium Chloride (Klor-Con M10) 10 MEQ TAB.ER.PRT 1 TAB PO DAILY Supplement (Reported) Prednisone 10 MG TABLET 0.5 TAB PO DAILY RA Repaglinide (Prandin) 0.5 MG TABLET 1 TAB PO TIDAC DIABETES Hold prandin if you skip a meal Rivaroxaban (Xarelto) 15 MG TABLET 1 TAB PO DAILY A.FIB (Reported) Current Medications: Current Medications Sig/Lenny Start time Last Medication Dose Route Stop Time Status Admin Amiodarone HCl 400 MG TID 12/23 1000 AC 12/25 PO 1543 Folic Acid 2 MG DAILY 12/22 1343 AC 12/25 PO 0935 Furosemide 40 MG ONCE ONE 12/25 1999 DC 12/24 IV 12/24 Hydroxychloroquine 200 MG BID 12/22 2200 AC 12/25 Sulfate PO 0935 Insulin Aspart 0 TIDAC 12/22 1200 AC 12/24 SC 1710 Levothyroxine Sodium 0.2 MG DAILY AC 12/23 0700 AC 12/25 PO 0630 Lisinopril 10 MG DAILY 12/23 1000 DC 12/23 PO 1100 Magnesium Oxide 400 MG BID 12/23 1353 AC 12/25 PO 0935 Metolazone 2.5 MG DAILY 12/25 1000 DC 12/25 PO 1035 Metoprolol Tartrate 12.5 MG BID 12/22 2200 DC 12/23 PO 1100 Omeprazole 20 MG DAILY AC 12/22 1341 AC 12/25 PO 0630 Prednisone 5 MG DAILY 12/22 1341 AC 12/25 PO 0935 Rivaroxaban 15 MG AT BEDTIME 12/23 2199 AC 12/24 PO 2103 Review of Systems Review of Systems: Complete 14 point ROS neg except as per HPI Past History Travel History Traveled to [place] past 21 day No Medical History Blood Transfusion Hx: Yes Neurological: CVA at age of 45 due to hypertension Cardiovascular: CHF, hypertension (pericardial effusion), CARDIOMEGALY Gastrointestinal: upper GI bleed Musculoskeletal: rheumatoid arthritis Endocrine: diabetes, hypothyroidism Blood Disorders: anemia Cancer(s): prostate cancer Surgical History Surgical History: non-contributory Psychosocial History Where Do You Live? Home Who Do You Live With? spouse, child Services at Home: None Primary Language: [employer] Smoking Status: Never Smoked ETOH Use: denies use Illicit Drug Use: denies illicit drug use Functional Ability ADLs Independent: dressing, eating, toileting, bathing. Ambulation: independent Exam & Diagnostic Data Vital Signs and I&O Vital Signs Date Time Temp Pulse Resp B/P B/P Pulse O2 O2 Flow FiO2 Mean Ox Delivery Rate 12/25 1543 100/54 12/25 1036 70 9052 12/25 1036 70 90/52 12/25 0935 9052 12/25 0839 94 Nasal 3.0L Cannula 12/25 0817 97.6 83 18 90/60 97 Nasal 3.0L Cannula 12/25 0127 97.4 73 18 90/48 96 Nasal Cannula 12/25 0000 Nasal 3.0L Cannula 12/24 2104 81 88/58 12/24 210 81 88/58 12/24 1706 97.6 75 20 90/60 98 Nasal 3.0L Cannula 12/24 1643 88 94/54 Intake & Output 12/25 1600 12/25 0400 12/24 1600 12/24 0400 12/23 1600 12/23 0400 Intake Total 500 495 400 340 594 240 Output Total 500 400 550 300 300 Balance 0 95 -150 340 294 -60 Intake, IV 15 14 Intake, Oral 500 480 400 340 580 240 Output, Urine 500 400 550 300 300 Patient 163 lb 158 lb 157 lb Weight Weight Standing Scale Standing Scale Standing Scale Measurement Method Physical Exam: Gen - NAD, laying flat Head - NCAT Eyes - anicteric sclera, EOMI Neck - prominent carotid pulsations, JVP likely up although honestly difficult to tell CV - irregularly irregular rate rhythm, no m/r/g Chest - scant b/l crackles, no wheezes or rhonchi Abd - soft, nontender, nondistended Upper ext - no edema Lower ext - 1+ LLE>RLE edema Skin - no rash Neuro - AOX3, grossly nonfocal Results Pertinent Lab Results: Laboratory Tests 12/25 12/24 12/23 0650 0605 0030 Chemistry Sodium (137 - 145 mmol/L) 136 L 139 Potassium (3.5 - 5.1 mmol/L) 4.3 4.0 Chloride (98 - 107 mmol/L) 95 L 97 L Carbon Dioxide (22 - 30 mmol/L) 33 H 32 H Anion Gap (5 - 16) 8 11 BUN (9 - 20 mg/dL) 64 H 46 H Creatinine (0.7 - 1.2 mg/dL) 2.7 H 1.9 H Estimated GFR (>60 ml/min) 23 L 34 L BUN/Creatinine Ratio (7 - 25 %) 23.7 24.2 Magnesium (1.6 - 2.3 mg/dL) 2.0 Troponin I (<0.11 ng/ml) 0.02 Cortisol AM Sample (4.46 - 22.7 ug/dL) 17.3 Hematology CBC w Diff NO MAN DIFF REQ WBC (4.8 - 10.8 /CUMM) 8.4 RBC (4.70 - 6.10 /CUMM) 3.29 L Hgb (14.0 - 18.0 G/DL) 8.7 L Hct (42 - 52 %) 27.8 L MCV (80.0 - 94.0 FL) 84.5 MCH (27.0 - 31.0 PG) 26.4 L RDW (11.5 - 14.5 %) 17.2 H Plt Count (130 - 400 /CUMM) 300 MPV (7.4 - 10.4 FL) 7.6 Gran % (42.2 - 75.2 %) 63.0 Lymphocytes % (20.5 - 51.1 %) 25.0 Monocytes % (1.7 - 9.3 %) 11.4 H Eosinophils % (0 - 5 %) 0 Basophils % (0.0 - 2.0 %) 0.6 Absolute Granulocytes (1.4 - 6.5 /CUMM) 5.3 Absolute Lymphocytes (1.2 - 3.4 /CUMM) 2.1 Absolute Monocytes (0.10 - 0.60 /CUMM) 1.0 H Absolute Eosinophils (0.0 - 0.7 /CUMM) 0 Absolute Basophils (0.0 - 0.2 /CUMM) 0.1 PUBS MCHC (33.0 - 37.0 G/DL) 31.3 L 12/22 1800 Chemistry Troponin I (<0.11 ng/ml) Cancelled 0.02 Imaging/Other Studies: Chest x-ray reviewed Renal U/S reviewed Assessment/Plan Assessment/Recommendations Assessment: XI - Almost certainly cardiorenal in origin. No other clear nephrotoxic insults. With diuresis, his BP dropped and his SCr went up. He was started on amiodarone to try and get him back in sinus rhythm and is being considered for a cardioversion tomorrow if he remains in A fib. Given that this was the major insult that seemed to have led to his drop in LVEF, it is hoped that this will significantly improve his cardiac function. In the meantime, it does not seem like further diuresis is warranted and given his reduced LVEF in October which may be even further reduced now (tachycardia induced cardiomyopathy), consideration for inotropes/pressors would be reasonable to help perfuse his kidneys and other organs better. Recommendations: -Agree with holding diuretics -Would consider empiric inotropes/pressors -Attempted electrical cardioversion tomorrow as per Dr. Chapman -Please get UA with microscopic analysis -Strict I's/O's and standing daily weights Please call [phone] with ?'s
[2016-12-25 16:30] VITALS: BP 100/56
--- NOTE | 2016-12-25 19:49 | PN- Cardiology ---
Subjective Subjective: States his breathing is better today. On telemetry in atrial fibrillation with ventricular response rates between 70s- 80s. Objective Vital Signs and I&Os Vital Signs Date Time Temp Pulse Resp B/P B/P Pulse O2 O2 Flow FiO2 Mean Ox Delivery Rate 12/25 1630 97.5 93 20 100/56 96 Nasal 2.0L Cannula 12/25 1609 95 Nasal 2.0L Cannula 12/25 1543 100/54 12/25 1036 70 90/52 12/25 1036 70 90/52 12/25 0935 90/52 12/25 0839 94 Nasal 3.0L Cannula 12/25 0817 97.6 83 18 90/60 97 Nasal 3.0L Cannula 12/25 0127 97.4 73 18 90/48 96 Nasal Cannula 12/25 0000 Nasal 3.0L Cannula 12/24 2104 81 88/58 12/24 2103 81 88/58 Intake & Output 12/25 1600 12/25 0800 12/25 0000 12/24 1600 12/24 0800 12/24 0000 Intake Total 400 100 495 400 474 Output Total 450 50 400 300 250 Balance -50 50 95 100 -250 474 Intake, IV 15 14 Intake, Oral 400 100 480 400 460 Output, Urine 450 50 400 300 250 Patient 163 lb 158 lb Weight Weight Standing Scale Standing Scale Measurement Method Physical Exam: Well-developed, well-nourished elderly male in no acute distress with nasal oxygen in place. Vital signs: See above. HEENT: Normocephalic, atraumatic, EOMI, moist mucous membranes. Neck: No JVD, no bruits. Lungs: Decreased breath sounds bilaterally with crackles at the bases, R>L . Heart: S1, S2 with grade 1/6 systolic murmur and PMI laterally displaced and diffuse. Abdomen: Soft, nontender, positive bowel sounds. Extremities: 2+ bilateral lower extremity edema . Assessment/Plan Assessment/Plan 02-m-x-w-m-w/ hx stroke at age 45 years complicated by GI bleed secondary to ASA Rx, HTN, HLD, hypothyroidism, GERD, RA s/p MTX Rx, prostate ca s/p hormone and radiation therapy, previous hemolytic anemia, pericardial tamponade s/p urgent pericardial window, HF [HFpEF], recurrent aspiration, recently discovered AF w/ MVR for which anticoagulation was initiated and w/ a significant deterioration in his LVEF echocardiography (EF 30%) performed for worsening complaints SOB () who presented to the ED on 12/22/2016 w/ c/o worsening SOB, dry cough, bilateral LE edema, orthopnea, etc., despite his enrollment in the heart wellness clinic where he has received IV furosemide on a 2x weekly basis (60 mg) , along with daily by mouth furosemide (20mg 2 daily). Suspect his decompensation may be on the basis of atrial fibrillation with more rapid than previously documented ventricular response rates that may have led to a tachycardia mediated cardiomyopathy. He has been anticoagulated with Xarelto for over a month and the plan will be to load him with amiodarone and plan for electrical cardioversion probably Monday ( 12/26/2016). Recommendations: * Continue on telemetry telemetry. Note, no evidence of myocardial necrosis by serial troponins. * Continue to load with amiodarone 400 mg by mouth 3 times daily. * Plan for electrical cardioversion Monday (12/26/2016) and make nothing by mouth after midnight Monday night (12/25/2016). * Follow-up potassium and check magnesium and replete as needed. * Continue Furosemide 40 mg IV twice daily and consider the addition of metolazone 2.5-5 mg one half hour before giving the a.m. dosage of IV furosemide for the next 24 hours and reassess the need for further IV diuresis based on response, BUN/creatinine, potassium, etc. * Continue the rest of his cardiac medications, except by mouth furosemide. * Repeat CXR in a.m. following good diuresis. * DVT prophylaxis being addressed by anticoagulation for his atrial fibrillation. Continue telemetry? Yes
[2016-12-25 21:25] VITALS: BP 100/60
--- NOTE | 2016-12-26 08:05 | PN- Housestaff ---
See Addendum Subjective Follow-up For: Acute on chronic CHF -LVEF 30% Atrial fibrillation with controlled ventricular rate Acute on chronic kidney disease secondary to diuresis Complaints: Feeling comfortable Tele-Events Since Last Visit: Atrial fibrillation, heart rate between 69-83, No any overnight events Subjective: Patient is seen and examined at the bedside. He was not having any active complaints. Review of Systems Constitutional: Denies: no symptoms. Objective Last 24 Hrs of Vital Signs/I&O Vital Signs Date Time Temp Pulse Resp B/P B/P Pulse O2 O2 Flow FiO2 Mean Ox Delivery Rate 12/26 0922 106/60 12/26 0825 96 Nasal 2.0L Cannula 12/26 08 97.4 82 20 106/58 96 Nasal 2.0L Cannula 12/26 0000 Nasal 2.0L Cannula 12/25 2125 98.0 87 20 100/60 96 Nasal 2.0L Cannula 12/25 2119 80 100/60 12/25 1630 97.5 93 20 100/56 96 Nasal 2.0L Cannula 12/25 1609 95 Nasal 2.0L Cannula 12/25 1543 100/54 Intake & Output 12/26 1600 12/26 0800 12/26 0000 Intake Total 120 Output Total 400 275 Balance -400 -155 Intake, Oral 120 Output, Urine 400 275 Patient 74.446 kg Weight Weight Chair scale Measurement Method Physical Exam General Appearance: Alert, Cooperative, No Acute Distress Cardiovascular: irregular, murmur present Lungs: mild basilar crepts Abdomen: Soft, No Tenderness Neurological: Normal Speech Extremities: mild lower leg swelling Vascular: Normal Pulses, Pulses Symmetrical Current Medications: Current Medications Sig/Lenny Start time Last Medication Dose Route Stop Time Status Admin Amiodarone HCl 400 MG TID 12/23 1000 AC 12/26 PO 0922 Folic Acid 2 MG DAILY 12/22 1343 AC 12/26 PO 0922 Hydroxychloroquine 200 MG BID 12/22 2200 AC 12/26 Sulfate PO 0923 Insulin Aspart 0 TIDAC 12/26 1200 AC SC Insulin Aspart 0 TIDAC 12/22 1200 DC 12/25 SC 12/25 2355 1617 Insulin Human Regular 0 Q6 12/26 1200 CAN SC Insulin Human Regular 0 Q6 12/26 0600 DC SC Insulin Human Regular 0 Q6 12/26 0000 DC 12/26 SC 0518 Levothyroxine Sodium 0.2 MG DAILY AC 12/23 0700 AC 12/25 PO 0630 Magnesium Oxide 400 MG BID 12/23 1353 AC 12/26 PO 0922 Metolazone 2.5 MG DAILY 12/25 1000 DC 12/25 PO 1035 Omeprazole 20 MG DAILY AC 12/22 1341 AC 12/25 PO 0630 Prednisone 5 MG DAILY 12/22 1341 AC 12/26 PO 0922 Rivaroxaban 15 MG AT BEDTIME 12/23 2200 AC 12/25 PO 2119 Last 24 Hrs of Lab/Thomas Results Last 24 Hrs of Labs/Mics: Laboratory Tests 12/26/16 0713: Anion Gap 10, Estimated GFR 20 L, BUN/Creatinine Ratio 25.5 H, CBC w Diff NO MAN DIFF REQ, RBC 3.23 L, MCV 83.1, MCH 26.6 L, RDW 17.3 H, MPV 7.7, Gran % 64.0, Lymphocytes % 26.1, Monocytes % 9.3, Eosinophils % 0, Basophils % 0.6, Absolute Granulocytes 5.4, Absolute Lymphocytes 2.2, Absolute Monocytes 0.8 H, Absolute Eosinophils 0, Absolute Basophils 0, PUBS MCHC 32.1 L 12/25/16 1654: Urine Color YEL, Urine Clarity CLDY H, Urine pH 6.0, Ur Specific [place] >= 1.030, Urine Protein 30 H, Urine Ketones TRACE H, Urine Nitrite POS H, Urine Bilirubin NEG, Urine Urobilinogen 1.0, Ur Leukocyte Esterase NEG, Ur Microscopic SEDIMENT EXAMINED, Urine RBC 1-3, Urine WBC 5-10 H, Ur Epithelial Cells MANY H , Urine Bacteria MANY H, Urine Mucus FEW, Urine Hemoglobin TRACE-LYSED H, Urine Glucose NEG Assessment/Plan Assessment: Patient is 76-year-old gentleman with past medical history significant for hypertension, CVA, CHF, rheumatoid arthritis, peptic ulcer and GI bleeding, hypothyroidism, diabetes, who presents to the hospital with worsening dyspnea since 1 day. Assessment - * Acute on chronic CHF - LVEF 30% * Recent onset Atrial fibrillation on Xarelto * Type 2 Diabetes * Hypothyroidism * Hypertension * Hyperlipidemia * GERD * History of CVA, followed by GI bleed secondary to aspirin * Rheumatoid arthritis on methotrexate * History of prostate cancer s/o RT/CT * Anemia of chronic disease * History of pericardial tamponade s/p pericardial window Plan - Atrial fibrillation with controlled ventricular rate * We will continue tablet amiodarone 400 milligrams 3 times a day * Patient had electrical cardioversion on (12/26/2016). After that Af is converted back to NSR. Acute on chronic CHF * We hold diuretics (Lasix/metolazone) due to worsening of renal function. * We will regularly monitor her creatinine. * Strict intake output charting * Daily weight measurement * Will follow Cardio recs Hypothyroidism, type 2 diabetes, hyperlipidemia, -continue all home medication DVT prophylaxis-Xarelto Diet-heart healthy diet. Fluid restriction to 1 liter CODE STATUS-full code Problem List: 1. T2DM (type 2 diabetes mellitus) 2. CHF exacerbation 3. New onset a-fib Pain Ratin Pain Location: not applicable Pain Goal: Remain pain free Pain Plan: avoid NSAIDs Tomorrow's Labs & Rationales: BEP, Mg , Phosp - for follow up DVT/Prophylaxis: mechanical, pharmacological
[2016-12-26 08:25] VITALS: BP 106/58
[2016-12-26 08:38] LABS: ABSOLUTE BASOPHIL COUNT 0 /CUMM (0.0-0.2); ABSOLUTE EOSINOPHIL COUNT 0 /CUMM (0.0-0.7); ABSOLUTE GRANULOCYTE CT 5.4 /CUMM (1.4-6.5); ABSOLUTE LYMPH COUNT 2.2 /CUMM (1.2-3.4); ABSOLUTE MONOCYTE COUNT 0.8 /CUMM (0.10-0.60); BASOPHIL % 0.6 % (0.0-2.0); EOSINOPHIL % 0 % (0-5); HEMATOCRIT 26.8 % (42-52); MEAN CORPUSCULAR HGB 26.6 PG (27.0-31.0); MEAN CORPUSCULAR HGB CONC 32.1 G/DL (33.0-37.0); MEAN CORPUSCULAR VOLUME 83.1 FL (80.0-94.0); MEAN PLATELET VOLUME 7.7 FL (7.4-10.4); PLATELET COUNT 342 /CUMM (130-400); RBC DISTRIBUTION WIDTH 17.3 % (11.5-14.5); RED BLOOD CELL CT 3.23 /CUMM (4.70-6.10); WHITE BLOOD CELL COUNT 8.4 /CUMM (4.8-10.8)
--- NOTE | 2016-12-26 10:42 | NUR ---
Physical therapy: Attempted to see pt this AM for PT treatment. Pt JUDY for procedure. Will follow up later as appropriate. Thank you.
--- NOTE | 2016-12-26 14:22 | RADIOLOGY REPORT ---
EXAMINATION: XR MODIFIED BARIUM SWALLOW CLINICAL INFORMATION: History of difficulty swallowing. Evaluate for aspiration. COMPARISON: Modified barium swallow from 07/07/2016 TECHNIQUE: Fluoroscopic assistance was provided during a modified barium swallow performed in cooperation with the speech pathology service. The patient's swallowing function was observed during administration of apple sauce puree, honey, nectar, thin barium contrast, and barium coated bread and cracker. FLUOROSCOPY TIME: 1 minute, 58 seconds NUMBER OF SAVED IMAGES: 22 FINDINGS: There was some retention of applesauce within the vallecula. No evidence of tracheal aspiration or penetration with intake of the applesauce, honey or nectar. There was undercoating of the epiglottis with the thin barium contrast. Then, after swallowing barium coated bread, an episode of tracheal penetration was identified without overt aspiration. No additional episodes of tracheal penetration were identified. IMPRESSION: A single episode of tracheal penetration of thin barium was identified. Please refer to the speech pathology report regarding their assessment and recommendations.
--- NOTE | 2016-12-26 14:22 | NUR ---
PHYSICAL THERAPY. PT TREATMENT DEFERRED THIS PM S/P DISCUSSION W/ RN. Pt S/P CARDIOVERSION AND MBS, CURRENTLY EATING, AND MOBILIZING WELL WITH RN ASSIST. PT WILL F/U APPROPRIATE TOMORROW.
[2016-12-26 16:00] VITALS: BP 120/76
--- NOTE | 2016-12-26 16:31 | Patient Discharge Instructions ---
Discharge Instructions General Discharge Information You were seen/treated for: Acute heart failure, we treated by giving IV Lasix and did electrical cardioversion for abnormal rhythm. Special Instructions: PLEASE F/U WITH YOUR PEN AND PENCIL REPAIRER UPON DISCHARGE. YOU ARE BEING TRANSFERRED TO [facility]. Diet Continue normal diet: No Recommended Diet: Heart Healthy, with fluid restriction Acute Coronary Syndrome Inclusion Criteria At DC or during hospital stay patient has or had the following: ACS DIAGNOSIS No Discharge Core Measures Meds if any: Prescribed or Continued at Discharge Meds if any: NOT Prescribed or Continued at Discharge Congestive Heart Failure Inclusion Criteria At DC or during hospital stay patient has or had the following: CHF DIAGNOSIS Yes Discharge Core Measures Meds if any: Prescribed or Continued at Discharge MOISES/ARB for EF <40% Yes Meds if any: NOT Prescribed or Continued at Discharge Cerebrovascular accident Inclusion Criteria At DC or during hospital stay patient has or had the following: CVA/TIA Diagnosis No Discharge Core Measures Meds if any: Prescribed or Continued at Discharge Meds if any: NOT Prescribed or Continued at Discharge Venous thromboembolism Inclusion Criteria VTE Diagnosis No VTE Type NONE VTE Confirmed by (Test) NONE Discharge Core Measures - Per Current guidelines, there needs to be overlap - treatment for the first 5 days of Warfarin therapy. - If discharged on Warfarin prior to 5 days of - overlap therapy, the patient will need to be - assessed for post discharge needs including - *Post discharge parental anticoagulation - *Warfarin and/or parental anticoagulation education - *Follow up date to check INR post discharge At least 5 days overlap therapy as Inpatient No Meds if any: Prescribed or Continued at Discharge Warfarin No Note: Overlap Therapy is Warfarin and Anticoagulant Meds if any: NOT Prescribed or Continued at Discharge Meds if any: NOT Prescribed or Continued at Discharge
--- NOTE | 2016-12-26 22:35 | Cons- Cardiology ---
General Information and HPI Consulting Request Date of Consult: 12/26/16 Requested By: LAURA TELLES,EUGENIA Chapman M.D. Reason for Consult: I was asked to see this patient in regards to atrial fibrillation and the setting of severe diastolic heart failure and new left ventricular systolic dysfunction. Source of Information: patient, old records, Dr. Chapman Exam Limitations: no limitations History of Present Illness: Mr. Chris Lomas is a 76-year-old male of [place] ([facility]) descent. He speaks little Divehi, and his son who is an RN in [employer] translated. He has a history of right sided stroke at age 45 years. His son noted that this was secondary to very severe HTN with diastolic BP's of over 150. Subsequently he had GI ulceration secondary to aspirin therapy requiring endoscopic intervention. Other medical issues include hyperlipidemia, severe hypertension, hypothyroidism, gastroesophageal reflux disease, aspiration, rheumatoid arthritis for which he had been on methotrexate but more recently treated with Plaquenil and low-dose prednisone, prostate carcinoma for which he is s/p hormone and radiation therapy, previous hemolytic anemia, pericardial tamponade discovered while undergoing a routine outpatient echocardiogram that ultimately led to admission (08/04-08/12/2015) and urgent pericardial window by CT surgery (Robbie Arevalo M.D.) He has had several subsequent hospitalizations here (07/01/2016-07/11/2016 and 07/22-07/30/2016 for heart failure [HFpEF], recurrent aspiration, etc.) Of note is the fact that there were concerns of ischemic heart disease and/or constrictive pericarditis playing a role in his previous hospitalizations for heart failure with preserved systolic function. An echocardiogram was performed on 07/01/2016 and revealed a normal-sized left ventricle with normal wall thickness and systolic function with some mild anterior wall hypokinesis and ejection fraction of 55%, normal right ventricular size and function, mildly dilated right and moderately dilated left atria, no significant structural valvular abnormalities, no pericardial effusion, and a normal size aortic root. The Doppler portion of the study revealed only trace tricuspid regurgitation with a mildly elevated estimated PA systolic pressure of 38 mmHg, and restrictive left ventricular inflow pattern. A pharmacologic stress test was performed on 07/28/2016 revealed no evidence of ischemia. A cardiac MRI was also performed at [facility] on 08/15/2016 and revealed a normal-sized left ventricle with normal left ventricular systolic function with EF 57%, nonspecific subendocardial delayed enhancement in the inferior wall of the left ventricula with differential considerations including prior infarct, as well as, nonischemic etiologies including remote myocarditis or rheumatoid arthritis with the subendocardial distribution favoring an infarct in the location at the base a nonischemic etiology, normal right ventricular size and function with RVEF 56% , trace TR, mild biatrial enlargement, borderline mid ascending thoracic aortic aneurysm measuring 4.0 cm, a small pericardial effusion, and a nodular increased signal in the right lung consistent with a possible airspace opacities/ atelectasis or discrete lung nodule. More recently he apparently had another outpatient echo done on 11/08/2016 showing that his EF at dropped to 30%. I do not have this data. According to Dr. Chapman's notes, more recently he was discovered to be in atrial fibrillation with a controlled ventricular response for which anticoagulation with the factor Xa inhibitor Xarelto was initiated and to have had a significant deterioration in his left ventricular systolic function by echocardiography (EF 30%) performed for worsening complaints shortness of breath performed on 11/08/2016. He was treated in the outpatient [facility] wellness clinic and it been receiving IV Lasix twice a week at 60 mg twice a week in addition to his daily Lasix of 20 mg twice a day. He now presented to the ED on 12/22/2016 with complaints of worsening shortness of breath on exertion, dry cough, bilateral lower extremity edema, orthopnea, etc., despite his enrollment in the heart wellness clinic where he received IV furosemide twice per week. Upon admission he was found to have a very elevated BNP of 4810. He has been anemic with a hematocrit of 26.8 and his latest BUN and creatinine are [address] Chapman discussed his case with me on 12/22/2016 it was felt that the A. fib was contributing to his left ventricular dysfunction and heart failure and was recommended to begin amiodarone and plan a cardioversion. Today he underwent a successful cardioversion after amiodarone loading to sinus rhythm. He has a very marked first-degree AV block and incomplete left bundle branch block. I was asked to see him regarding further recommendations. Allergies/Medications Allergies: Coded Allergies: aspirin (Mild, ULCER 10/13/15) Home Med List: Enalapril Maleate (Vasotec) 10 MG TABLET 1 TAB PO DAILY HEART (Reported) Ergocalciferol (Vitamin D2) (Vitamin D2) 50,000 UNIT CAPSULE 1 CAP PO Q2W Supplement (Reported) Folic Acid 1 MG TABLET 2 MG PO DAILY SUPPLEMENT (Reported) Furosemide (Lasix) 40 MG TABLET 0.5 TAB PO BID DIURETIC (Reported) Hydroxychlorquine (Plaquenil) 200 MG TABLET 1 TAB PO BID RA (Reported) Levothyroxine Sodium 0.2 MG TAB 1 TAB PO DAILY THYROID (Reported) Metoprolol Tartrate 25 MG TABLET 12.5 MG PO BID HEART HEALTH Omeprazole 20 MG CAPSULE.DR 1 CAP PO DAILY ACID REFLUX Potassium Chloride (Klor-Con M10) 10 MEQ TAB.ER.PRT 1 TAB PO DAILY Supplement (Reported) Prednisone 10 MG TABLET 0.5 TAB PO DAILY RA Repaglinide (Prandin) 0.5 MG TABLET 1 TAB PO TIDAC DIABETES Hold prandin if you skip a meal Rivaroxaban (Xarelto) 15 MG TABLET 1 TAB PO DAILY A.FIB (Reported) Current Medications: Current Medications Sig/Lenny Start time Last Medication Dose Route Stop Time Status Admin Amiodarone HCl 400 MG TID 12/23 1000 AC 12/26 PO 2051 Folic Acid 2 MG DAILY 12/22 1343 AC 12/26 PO 921 Hydroxychloroquine 200 MG BID 12/22 2199 AC 12/26 Sulfate PO 2051 Insulin Aspart 0 TIDAC 12/26 1200 AC 12/26 UT 1758 Insulin Aspart 0 TIDAC 12/22 1200 AL 12/25 UT 12/25 2355 1617 Insulin Human Regular 0 Q6 12/26 1200 CAN SC Insulin Human Regular 0 Q6 12/26 0000 AL 12/26 UT 0518 Levothyroxine Sodium 0.2 MG DAILY AC 12/23 0700 AC 12/25 PO 30 Magnesium Oxide 400 MG BID 12/23 1353 AC 12/26 PO 2051 Omeprazole 20 MG DAILY AC 12/22 1341 AC 12/25 PO 629 Prednisone 5 MG DAILY 12/22 1341 AC 12/26 PO 921 Rivaroxaban 15 MG AT BEDTIME 12/23 2199 12/26 PO 2051 Review of Systems Review of Systems: He has complaints of shortness of breath, an uneasy feeling in his chest, joint pains, fatigue, lightheadedness. All other systems reviewed and are negative. Past History Travel History Traveled to [place] past 21 day No Medical History Blood Transfusion Hx: Yes Neurological: CVA at age of 45 due to hypertension Cardiovascular: CHF, hypertension (pericardial effusion), CARDIOMEGALY Gastrointestinal: upper GI bleed Musculoskeletal: rheumatoid arthritis Endocrine: diabetes, hypothyroidism Blood Disorders: anemia Cancer(s): prostate cancer Surgical History Surgical History: non-contributory Psychosocial History Where Do You Live? Home Who Do You Live With? spouse, child Services at Home: None Primary Language: [facility] Smoking Status: Never Smoked ETOH Use: denies use Illicit Drug Use: denies illicit drug use Functional Ability ADLs Independent: dressing, eating, toileting, bathing. Ambulation: independent Exam & Diagnostic Data Vital Signs and I&O Vital Signs Date Time Temp Pulse Resp B/P B/P Pulse O2 O2 Flow FiO2 Mean Ox Delivery Rate 12/27 2051 78 102/64 12/26 1724 77 96/60 12/26 1600 Nasal 2.0L Cannula 12/26 1600 98.0 80 20 120/76 95 Nasal 2.0L Cannula 12/26 0922 106/60 12/26 0825 96 Nasal 2.0L Cannula 12/26 0825 97.4 82 20 106/58 96 Nasal 2.0L Cannula 12/26 0000 Nasal 2.0L Cannula Intake & Output 12/26 1600 12/26 0800 12/26 0000 12/25 1600 12/25 0800 12/25 0000 Intake Total 400 120 400 100 495 Output Total 300 400 275 450 50 400 Balance 100 -400 -155 -50 50 95 Intake, IV 15 Intake, Oral 400 120 400 100 480 Output, Urine 300 400 275 450 50 400 Patient 164 lb 163 lb Weight Weight Chair scale Standing Scale Measurement Method Physical Exam: General: Very comfortable and pleasant For vital signs, see above. Head: Normocephalic/atraumatic Eyes: No xanthelasma or scleral icterus Mouth: Moist mucous membranes without pallor or cyanosis Neck: No jugular venous distention, carotid bruits, thyromegaly Thorax/lungs: No chest deformity, lungs clear Cardiac: Normal S1, S2 without S3, S4 or murmurs. Abdomen: No tenderness or masses Extremities: No cyanosis, clubbing, or edema Neruo: Grossly nonfocal Skin: No major rashes Psychiatric: Normal mood and affect Labs/Thomas Results: Laboratory Tests 12/26 12/25 0713 1654 Chemistry Sodium (137 - 145 mmol/L) 134 L Potassium (3.5 - 5.1 mmol/L) 4.4 Chloride (98 - 107 mmol/L) 95 L Carbon Dioxide (22 - 30 mmol/L) 29 Anion Gap (5 - 16) 10 BUN (9 - 20 mg/dL) 79 H Creatinine (0.7 - 1.2 mg/dL) 3.1 H Estimated GFR (>60 ml/min) 20 L BUN/Creatinine Ratio (7 - 25 %) 25.5 H Hematology CBC w Diff NO MAN DIFF REQ WBC (4.8 - 10.8 /CUMM) 8.4 RBC (4.70 - 6.10 /CUMM) 3.23 L Hgb (14.0 - 18.0 G/DL) 8.6 L Hct (42 - 52 %) 26.8 L MCV (80.0 - 94.0 FL) 83.1 MCH (27.0 - 31.0 PG) 26.6 L RDW (11.5 - 14.5 %) 17.3 H Plt Count (130 - 400 /CUMM) 342 MPV (7.4 - 10.4 FL) 7.7 Gran % (42.2 - 75.2 %) 64.0 Lymphocytes % (20.5 - 51.1 %) 26.1 Monocytes % (1.7 - 9.3 %) 9.3 Eosinophils % (0 - 5 %) 0 Basophils % (0.0 - 2.0 %) 0.6 Absolute Granulocytes (1.4 - 6.5 /CUMM) 5.4 Absolute Lymphocytes (1.2 - 3.4 /CUMM) 2.2 Absolute Monocytes (0.10 - 0.60 /CUMM) 0.8 H Absolute Eosinophils (0.0 - 0.7 /CUMM) 0 Absolute Basophils (0.0 - 0.2 /CUMM) 0 PUBS MCHC (33.0 - 37.0 G/DL) 32.1 L Urines Urine Color (YEL,AMB,STR) YEL Urine Clarity (CLEAR) CLDY H Urine pH (5.0 - 8.0) 6.0 Ur Specific [place] (1.001 - 1.035) >= 1.030 Urine Protein (NEG,<30 MG/DL) 30 H Urine Ketones (NEG) TRACE H Urine Nitrite (NEG) POS H Urine Bilirubin (NEG) NEG Urine Urobilinogen (0.1 - 1.0 EU/dl) 1.0 Ur Leukocyte Esterase (NEG) NEG Ur Microscopic SEDIMENT EXAMINED Urine RBC (0 - 5 /HPF) 1-3 Urine WBC (0 - 2 /HPF) 5-10 H Ur Epithelial Cells (NONE,FEW) MANY H Urine Bacteria (NEG/NONE) MANY H Urine Mucus (FEW,NONE) FEW Urine Hemoglobin (NEG) TRACE-LYSED H Urine Glucose (N MG/DL) NEG 12/25 0650 Chemistry Sodium (137 - 145 mmol/L) 136 L Potassium (3.5 - 5.1 mmol/L) 4.3 Chloride (98 - 107 mmol/L) 95 L Carbon Dioxide (22 - 30 mmol/L) 33 H Anion Gap (5 - 16) 8 BUN (9 - 20 mg/dL) 64 H Creatinine (0.7 - 1.2 mg/dL) 2.7 H Estimated GFR (>60 ml/min) 23 L BUN/Creatinine Ratio (7 - 25 %) 23.7 Diagnostic Data EKG Results He is currently in sinus rhythm with marked first-degree AV block and incomplete left bundle branch block. Assessment/Plan Assessment/Plan This is a very complicated case. I do think as we have no other great explanation that A. fib was contributing to his left ventricular dysfunction. This is despite rapid rates. At this point I would recommend rechecking an echo in 4-6 weeks. I would reduce his amiodarone 200 mg daily at discharge. As he has marked first-degree AV block and incomplete left bundle-branch block he may ultimately benefit from a cardiac resynchronization pacemaker to synchronize his AV delays and his V-V delays. However he has some any underlying issues that I am not sure this revealed the answer to his problems. If his A. fib his major issue and he developed recurrent A. fib on low-dose amiodarone and would be an ablation candidate for this to be high risk with some major degree of inefficacy but we may be desperate in the future and need to consider this. This would be especially true of his EF improves proving that this was a tachycardia-induced issue. I am very concerned that he may have a progressive inflammatory process that is affecting his kidneys and even his myocardium. He is only on Plaquenil and very low-dose of prednisone and I wondering whether he could have a diffuse vasculitis related to his RA. I do not think his renal dysfunction is purely on a cardiorenal basis given the fact that he is markedly volume overloaded with an elevated BNP and his EF although low is not markedly reduced. I would consider a renal biopsy, and he may benefit from a biological agent. Would check ESR and CRP which I suspect will be markedly elevated. Would also check serum immunofixation electrophoresis. He very much needs attention paid to his renal situation which is contributing to his CHF, and may be somewhat reversible. However, his renal situation may be on the basis of severe HTN in the past and in that situation may not be very reversible. I am convinced that his anemia is also contributing to his CHF. He may have a degree of high-output congestive heart failure. I would be very aggressive in getting his hematocrit over 30 and would consider erythropoietin or other such agents. I would consider the addition of low-dose carvedilol as well as possibly adding Entresto if he is able to tolerate them from a blood pressure and renal standpoint. These 2 agents have been associated with marked improvements in left ventricular function. Overall prognosis is very limited mostly on the basis of his renal insufficiency which may be again due to progressive inflammatory autoimmune process. It is possible that ultimately he may need dialysis and his volume management may be easier if that were the case. Will be happy to follow him along as an outpatient Copies To: PAU TELLES,AISHWARYA Ivey; MCKENNA TELLES,AISHWARYA Guerrier; REAGAN TELLES,LYNDA Leung; JAIME TELLES,RAFAELA Guerrier; SUSSY TELLES,[facility] MEDICAL CENTERCarmella Consult Acknowledgment - Thank you for your consult request.
[2016-12-26 23:38] VITALS: BP 106/62
[2016-12-27 07:17] VITALS: BP 114/64
--- NOTE | 2016-12-27 10:19 | PN- Housestaff ---
Subjective Follow-up For: Acute on chronic CHF -LVEF 30% Atrial fibrillation with controlled ventricular rate Acute on chronic kidney disease secondary to diuresis Complaints: no complaints Tele-Events Since Last Visit: NSR, heart rate between 72 -73, No any overnight events Subjective: Patient is seen and examined at the bedside. He was not having any active complaints. Review of Systems Constitutional: Denies: no symptoms. Objective Last 24 Hrs of Vital Signs/I&O Vital Signs Date Time Temp Pulse Resp B/P B/P Pulse O2 O2 Flow FiO2 Mean Ox Delivery Rate 12/27 1022 74 114/64 12/27 0800 96 Nasal 2.0L Cannula 12/27 0717 97.6 75 20 114/64 94 Nasal Cannula 12/27 0000 95 Nasal 2.0L Cannula 12/26 2338 97.6 74 20 106/62 97 Nasal 3.0L Cannula 12/26 2052 78 102/64 12/26 1724 77 96/60 12/26 1600 Nasal 2.0L Cannula 12/26 1600 98.0 80 20 120/76 95 Nasal 2.0L Cannula Intake & Output 12/27 1600 12/27 0800 12/27 0000 Intake Total 100 600 Output Total 400 Balance -300 600 Intake, Oral 100 600 Output, Urine 400 Patient 74.446 kg Weight Weight Chair scale Measurement Method Physical Exam General Appearance: Alert, Cooperative, No Acute Distress Cardiovascular: Normal S1, Normal S2, murmur present Lungs: bilateral crackles Abdomen: Soft, No Tenderness Neurological: Normal Speech Extremities: No Clubbing, No Cyanosis, No Edema Vascular: Normal Pulses, Pulses Symmetrical Current Medications: Current Medications Sig/Lenny Start time Last Medication Dose Route Stop Time Status Admin Amiodarone HCl 200 MG DAILY 12/27 1000 AC 12/27 PO 1022 Amiodarone HCl 400 MG TID 12/23 1000 DC 12/26 PO 2052 Folic Acid 2 MG DAILY 12/22 1343 AC 12/27 PO 1022 Hydroxychloroquine 200 MG BID 12/22 2200 AC 12/27 Sulfate PO 1022 Insulin Aspart 0 TIDAC 12/26 1200 AC 12/26 SC 1758 Insulin Human Regular 0 Q6 12/26 1200 CAN SC Insulin Human Regular 0 Q6 12/26 0000 DC 12/26 SC 0518 Levothyroxine Sodium 0.2 MG DAILY AC 12/23 0700 AC 12/27 PO 0616 Magnesium Oxide 400 MG BID 12/23 1353 DC 12/26 PO 2051 Omeprazole 20 MG DAILY AC 12/22 1341 AC 12/27 PO 0616 Prednisone 5 MG DAILY 12/22 1341 AC 12/27 PO 1021 Rivaroxaban 15 MG AT BEDTIME 12/23 2200 AC 12/26 PO 2051 Sodium Chloride 1,000 ML Q13H 12/27 0930 AC 12/27 IV 1012 Last 24 Hrs of Lab/Thomas Results Last 24 Hrs of Labs/Mics: Laboratory Tests 12/27/16 0610: Anion Gap 11, Estimated GFR 18 L, BUN/Creatinine Ratio 26.1 H, Phosphorus 5.8 H, Magnesium 2.3 Assessment/Plan Assessment: Patient is 76-year-old gentleman with past medical history significant for hypertension, CVA, CHF, rheumatoid arthritis, peptic ulcer and GI bleeding, hypothyroidism, diabetes, who presents to the hospital with worsening dyspnea since 1 day. Assessment - * Acute on chronic CHF - LVEF 30% * Recent onset Atrial fibrillation on Xarelto * Type 2 Diabetes * Hypothyroidism * Hypertension * Hyperlipidemia * GERD * History of CVA, followed by GI bleed secondary to aspirin * Rheumatoid arthritis on methotrexate * History of prostate cancer s/o RT/CT * Anemia of chronic disease * History of pericardial tamponade s/p pericardial window Plan - Acute Kidney injury secondary to decrease renal perfusion - ATN Discussed with Dr. Harris, because of decreased renal perfusion and low blood pressure, leading to acute tubular necrosis. * We will hold diuresis * Strict intake output charting * Daily weight measurement * Follow-up with creatinine and electrolyte * We also started patient on IV fluids NS -75 mL per hour * We will follow nephrology recommendation. Atrial fibrillation with controlled ventricular rate * We will change the dose of tablet amiodarone from 400 milligrams 3 times a day to 200 milligrams daily. * Patient had electrical cardioversion on (12/26/2016). After that Af is converted back to NSR. Acute on chronic CHF * We hold diuretics (Lasix/metolazone) due to worsening of renal function. * We will regularly monitor his creatinine. * Strict intake output charting * Daily weight measurement * Will follow Cardio recs Hypothyroidism, type 2 diabetes, hyperlipidemia, -continue all home medication DVT prophylaxis-Xarelto Diet-heart healthy diet. Fluid restriction to 1 liter CODE STATUS-full code Problem List: 1. Cardiorenal syndrome 2. CHF (congestive heart failure) 3. Diabetes Pain Ratin Pain Location: not applicable Pain Goal: Remain pain free Pain Plan: avoid NSAIDs Tomorrow's Labs & Rationales: BEP, mg, phos - for f/u DVT/Prophylaxis: mechanical, pharmacological
--- NOTE | 2016-12-27 10:45 | PN- Nephrology ---
Assessment/Plan Assessment: 1. Acute kidney injury. Given the suddenness with which the gentleman's LV dysfunction has appeared and his acute kidney injury, the issue of a systemic inflammatory process has been raised. Examining the record, his serum creatinine was at baseline upon presentation. It had been in the recent past as well. The serum creatinine begins to rise after diuresis coupled with hypotension. He is hypotensive from late on the through and including late on the . It is noted that he had blood pressures dropping into the 80s. It is then that the serum creatinine is seen to rise. A urine sodium and creatinine were not obtained upon admission. Urinalysis showed at best 1+ protein with a specific gravity 1.030. This would be suggestive of underperfused kidneys. Diuretics were held. And he underwent cardioversion yesterday. His serum creatinine today is a bit worse. However, the cardioversion was yesterday in the afternoon. Looking at this, this set of events would seem to be more consistent with either severe prerenal azotemia or, worse yet, severe prerenal azotemia that then has essentially crossed the line and become acute tubular necrosis. Any prerenal azotemia left unchecked or rather the cause of which has been left unchecked will lead to acute tubular necrosis. I do not think a serologic workup looking for rapidly progressive glomerulonephritis is warranted. It is hoped, that since the rate of rise of the creatinine has slowed, that perhaps the serum creatinine will be seen to decline back to his previous baseline 2. Status post cardioversion for A. fib 3. Dilated cardiomyopathy Suggestion: 1. Continue to hold diuretics 2. Daily BMP 3. Please send a spot urine sodium and urine creatinine Subjective Subjective: Patient seen with son and visiting. He feels better. He is not yet voided today although he said he needed to void when I was about to leave the room. Objective Vital Signs and I&Os Vital Signs Date Time Temp Pulse Resp B/P B/P Pulse O2 O2 Flow FiO2 Mean Ox Delivery Rate 12/27 1022 74 114/64 12/27 0800 96 Nasal 2.0L Cannula 12/27 0717 97.6 75 20 114/64 94 Nasal Cannula 12/27 0000 95 Nasal 2.0L Cannula 12/26 2338 97.6 74 20 106/62 97 Nasal 3.0L Cannula 12/26 2052 78 102/64 12/26 1724 77 96/60 12/26 1600 Nasal 2.0L Cannula 12/26 1600 98.0 80 20 120/76 95 Nasal 2.0L Cannula Intake & Output 12/27 1600 12/27 0400 12/26 1600 12/26 0400 12/25 1600 12/25 0400 Intake Total 100 600 400 120 500 495 Output Total 400 700 275 500 400 Balance -300 600 -300 -155 0 95 Intake, IV 15 Intake, Oral 100 600 400 120 500 480 Output, Urine 400 700 275 500 400 Patient 164 lb 164 lb 163 lb Weight Weight Chair scale Chair scale Standing Scale Measurement Method Physical Exam General Appearance: well developed/nourished, no apparent distress, alert, awake , anxious, comfortable, obese Head: atraumatic, normal appearance Ears, Nose, Throat: hearing grossly normal Neck: normal inspection, supple, trachea mid line Respiratory: normal breath sounds, chest non-tender Cardiovascular: regular rate/rhythm, edema Abdomen: normal bowel sounds, soft, non-tender, no organomegaly, sitting up in a chair Back: normal inspection, no vertebral tenderness, no CVA tenderness Extremities: normal inspection, no edema Neurologic/Psychiatric: no motor/sensory deficits, awake, alert, normal mood/ affect, no gross neurologic deficits Skin: no rash itching or jaundice Current Medications: Current Medications Sig/Lenny Start time Last Medication Dose Route Stop Time Status Admin Amiodarone HCl 200 MG DAILY 12/27 1000 AC 12/27 PO 1022 Amiodarone HCl 400 MG TID 12/23 1000 DC 12/26 PO 2051 Folic Acid 2 MG DAILY 12/22 1343 AC 12/27 PO 1022 Hydroxychloroquine 200 MG BID 12/22 2199 AC 12/27 Sulfate PO 1022 Insulin Aspart 0 TIDAC 12/26 1200 AC 12/26 SC 1758 Insulin Human Regular 0 Q6 12/26 1200 CAN SC Insulin Human Regular 0 Q6 12/26 0000 DC 12/26 SC 0518 Levothyroxine Sodium 0.2 MG DAILY AC 12/23 0700 AC 12/27 PO 0616 Magnesium Oxide 400 MG BID 12/23 1353 DC 12/26 PO 205 Omeprazole 20 MG DAILY AC 12/22 1341 AC 12/27 PO 0616 Prednisone 5 MG DAILY 12/22 1341 AC 12/27 PO 1021 Rivaroxaban 15 MG AT BEDTIME 12/23 2200 AC 12/26 PO 2052 Sodium Chloride 1,000 ML Q13H 12/27 0930 AC 12/27 IV 1012 Results Pertinent Lab Results: Laboratory Tests 12/27 12/26 0610 0713 Chemistry Sodium (137 - 145 mmol/L) 133 L 134 L Potassium (3.5 - 5.1 mmol/L) 4.7 4.4 Chloride (98 - 107 mmol/L) 93 L 95 L Carbon Dioxide (22 - 30 mmol/L) 28 29 Anion Gap (5 - 16) 11 10 BUN (9 - 20 mg/dL) 86 H 79 H Creatinine (0.7 - 1.2 mg/dL) 3.3 H 3.1 H Estimated GFR (>60 ml/min) 18 L 20 L BUN/Creatinine Ratio (7 - 25 %) 26.1 H 25.5 H Phosphorus (2.5 - 4.5 mg/dL) 5.8 H Magnesium (1.6 - 2.3 mg/dL) 2.3 Hematology CBC w Diff NO MAN DIFF REQ WBC (4.8 - 10.8 /CUMM) 8.4 RBC (4.70 - 6.10 /CUMM) 3.23 L Hgb (14.0 - 18.0 G/DL) 8.6 L Hct (42 - 52 %) 26.8 L MCV (80.0 - 94.0 FL) 83.1 MCH (27.0 - 31.0 PG) 26.6 L RDW (11.5 - 14.5 %) 17.3 H Plt Count (130 - 400 /CUMM) 342 MPV (7.4 - 10.4 FL) 7.7 Gran % (42.2 - 75.2 %) 64.0 Lymphocytes % (20.5 - 51.1 %) 26.1 Monocytes % (1.7 - 9.3 %) 9.3 Eosinophils % (0 - 5 %) 0 Basophils % (0.0 - 2.0 %) 0.6 Absolute Granulocytes (1.4 - 6.5 /CUMM) 5.4 Absolute Lymphocytes (1.2 - 3.4 /CUMM) 2.2 Absolute Monocytes (0.10 - 0.60 /CUMM) 0.8 H Absolute Eosinophils (0.0 - 0.7 /CUMM) 0 Absolute Basophils (0.0 - 0.2 /CUMM) 0 PUBS MCHC (33.0 - 37.0 G/DL) 32.1 L 12/25 12/25 1654 0650 Chemistry Sodium (137 - 145 mmol/L) 136 L Potassium (3.5 - 5.1 mmol/L) 4.3 Chloride (98 - 107 mmol/L) 95 L Carbon Dioxide (22 - 30 mmol/L) 33 H Anion Gap (5 - 16) 8 BUN (9 - 20 mg/dL) 64 H Creatinine (0.7 - 1.2 mg/dL) 2.7 H Estimated GFR (>60 ml/min) 23 L BUN/Creatinine Ratio (7 - 25 %) 23.7 Urines Urine Color (YEL,AMB,STR) YEL Urine Clarity (CLEAR) CLDY H Urine pH (5.0 - 8.0) 6.0 Ur Specific [place] (1.001 - 1.035) >= 1.030 Urine Protein (NEG,<30 MG/DL) 30 H Urine Ketones (NEG) TRACE H Urine Nitrite (NEG) POS H Urine Bilirubin (NEG) NEG Urine Urobilinogen (0.1 - 1.0 EU/dl) 1.0 Ur Leukocyte Esterase (NEG) NEG Ur Microscopic SEDIMENT EXAMINED Urine RBC (0 - 5 /HPF) 1-3 Urine WBC (0 - 2 /HPF) 5-10 H Ur Epithelial Cells (NONE,FEW) MANY H Urine Bacteria (NEG/NONE) MANY H Urine Mucus (FEW,NONE) FEW Urine Hemoglobin (NEG) TRACE-LYSED H Urine Glucose (N MG/DL) NEG
[2016-12-27 12:36] VITALS: BP 100/60
--- NOTE | 2016-12-27 13:17 | NUR ---
SPEECH THERAPY: EDUCATION PROVIDED RE: RESULTS OF VISUALIZATION STUDY (MBS) FROM YESTERDAY W/ PT, , AND SON, ALONG WITH SAFE SWALLOWING STRATEGIES. ST CONTINUE TO FOLLOW FOR IMPLEMENTATION OF SAFE SWALLOWING STRATEGIES AT MEAL. D/W RN.
[2016-12-27 14:35] VITALS: BP 118/64
--- NOTE | 2016-12-27 14:53 | PN- Att Addend ---
Attending MD Review Statement Attending Statement Attending MD Statement: examined this patient, discuss w/resident/PA/SOFTWARE QUALITY ANALYST, agreed w/resident/PA/SOFTWARE QUALITY ANALYST, discussed with family, reviewed EMR data (avail), discussed w/ nursing, discussed w/case mgmt Attending Assessment/Plan: Laboratory Tests 12/27/16 1430: Ur Random Creatinine Pending, Ur Random Sodium Pending, Ur Random Potassium Pending, Fraction Sodium Excret Pending 12/27/16 0610: Anion Gap 11, Estimated GFR 18 L, BUN/Creatinine Ratio 26.1 H, Phosphorus 5.8 H, Magnesium 2.3 Vital Signs Date Time Temp Pulse Resp B/P B/P Pulse O2 O2 Flow FiO2 Mean Ox Delivery Rate 12/27 1435 98.0 78 20 118/64 95 Nasal 3.0L Cannula 12/27 1236 73 100/60 12/27 1022 74 114/64 12/27 0800 96 Nasal 2.0L Cannula 12/27 0717 97.6 75 20 114/64 94 Nasal Cannula 12/27 0000 95 Nasal 2.0L Cannula 12/26 2338 97.6 74 20 106/62 97 Nasal 3.0L Cannula 12/26 2052 78 102/64 12/26 1724 77 96/60 12/26 1600 Nasal 2.0L Cannula 12/26 1600 98.0 80 20 120/76 95 Nasal 2.0L Cannula XI likely secondary to ATN. started on iv fluids. will f/u on Urine studies. D/ w nephrology. Will f/u on renal functions closely. Started pt on incentive spirometry. has b/l basal crackles on exam. cont to monitor closley.
[2016-12-27 23:03] VITALS: BP 102/58
[2016-12-28 03:00] VITALS: BP 110/52
[2016-12-28 06:58] VITALS: BP 98/56
--- NOTE | 2016-12-28 09:56 | PN- Nephrology ---
Assessment/Plan Assessment: 1. Acute kidney injury. His serum creatinine continues to rise. His urinary sodium is less than 5. This would be consistent with severe prerenal azotemia. Essentially, this is a situation of good kidney that were old area and this reflects either decompensated congestive heart failure or volume depletion. On exam today it would seem to me more heart failure. He has bilateral lower extremity edema as well as decreased breath sounds and sacral edema. In spite of his episode of prolonged hypotension, this urinary sodium would indicate that his tubules are intact. 2. Status post cardioversion for A. fib 3. Dilated cardiomyopathy Suggestion: 1. Agree with chest x-ray, it was performed immediately prior to my entering the room. If this is consistent with congestive heart failure then furosemide and diuretics on to be resumed. He is not at a point that one would think of starting dialysis. Instead optimizing his heart failure may actually cause his kidneys to return to their previous normal or near-normal baseline. 2. Daily BMP Subjective Subjective: Patient denies shortness of breath. His family however was not present for more formal translation. Objective Vital Signs and I&Os Vital Signs Date Time Temp Pulse Resp B/P B/P Pulse O2 O2 Flow FiO2 Mean Ox Delivery Rate 12/28 0658 97.5 71 18 98/56 98 Nasal 4.0L Cannula 12/28 0300 98.7 70 18 110/52 93 Nasal 2.0L Cannula 12/28 0000 Nasal 4.0L Cannula 12/27 2303 98.0 73 16 102/58 95 Nasal 4.0L Cannula 12/27 1804 98 Nasal 4.0L Cannula 12/27 1600 98 Nasal 4.0L Cannula 12/27 1435 98.0 78 20 118/64 95 Nasal 3.0L Cannula 12/27 1236 73 100/60 12/27 1022 74 114/64 Intake & Output 12/28 1600 12/28 0400 12/27 1600 12/27 0400 12/26 1600 12/26 0400 Intake Total 120 530 850 600 400 120 Output Total 275 50 625 700 275 Balance -155 480 225 600 -300 -155 Intake, IV 150 350 Intake, Oral 120 380 500 600 400 120 Output, Urine 275 50 625 700 275 Patient 171 lb 164 lb 164 lb Weight Weight Chair scale Chair scale Measurement Method Physical Exam: General Appearance: well developed/nourished, no apparent distress, alert, awake , comfortable, obese Head: atraumatic, normal appearance Ears, Nose, Throat: hearing grossly normal Neck: normal inspection, supple, trachea mid line Respiratory: normal breath sounds, chest non-tender Cardiovascular: regular rate/rhythm, edema Abdomen: normal bowel sounds, soft, non-tender, no organomegaly, sitting up in a chair Back: normal inspection, no vertebral tenderness, no CVA tenderness Extremities: Bilateral link-ankle and sacral edema. Skin: no rash itching or jaundice Current Medications: Current Medications Sig/Lenny Start time Last Medication Dose Route Stop Time Status Admin Amiodarone HCl 200 MG DAILY 12/27 1000 AC 12/27 PO 1022 Benzonatate 100 MG TID 12/27 1600 AC 12/27 PO 1758 Folic Acid 2 MG DAILY 12/22 1343 AC 12/27 PO 1022 Hydroxychloroquine 200 MG BID 12/22 2200 AC 12/27 Sulfate PO 2040 Insulin Aspart 0 TIDAC 12/26 1200 AC 12/27 SC 1757 Levothyroxine Sodium 0.2 MG DAILY AC 12/23 0700 AC 12/28 PO 0614 Omeprazole 20 MG DAILY AC 12/22 1341 AC 12/28 PO 0614 Patient Medication 1 ED .STK-MED ONE 12/27 1414 NC Teaching ED 12/27 1415 Prednisone 5 MG DAILY 12/22 1341 AC 12/27 PO 1021 Rivaroxaban 15 MG AT BEDTIME 12/23 2200 AC 12/27 PO 2040 Sodium Chloride 1,000 ML Q20H 12/28 0915 AC IV Sodium Chloride 1,000 ML Q13H 12/27 0930 DC 12/27 IV 1012 Results Pertinent Lab Results: Laboratory Tests 12/28 12/27 12/27 12/27 0612 1930 1430 0610 Chemistry Sodium (137 - 145 mmol/L) 133 L 133 L Potassium (3.5 - 5.1 mmol/L) 5.0 4.7 Chloride (98 - 107 mmol/L) 93 L 93 L Carbon Dioxide (22 - 30 mmol/L) 27 28 Anion Gap (5 - 16) 12 11 BUN (9 - 20 mg/dL) 96 H 86 H Creatinine (0.7 - 1.2 mg/dL) 3.5 H 3.3 H Estimated GFR (>60 ml/min) 17 L 18 L BUN/Creatinine Ratio (7 - 25 %) 27.4 H 26.1 H Phosphorus (2.5 - 4.5 mg/dL) 5.8 H 5.8 H Magnesium (1.6 - 2.3 mg/dL) 2.5 H 2.3 C-Reactive Prot, Quant (<1.0 mg/dL) 2.3 H C-React Prot High Sens (1.0 - 3.0 mg/L) > 15.0 H Hematology ESR Westergren (0 - 10 MM) > 130 H Urines Ur Random Creatinine (mg/dL) 110.8 Ur Random Sodium (30 - 90 mmol/L) < 5 L Ur Random Potassium (mmol/L) 57.5 Fraction Sodium Excret (<1% %) 12/26 12/25 0713 1654 Chemistry Sodium (137 - 145 mmol/L) 134 L Potassium (3.5 - 5.1 mmol/L) 4.4 Chloride (98 - 107 mmol/L) 95 L Carbon Dioxide (22 - 30 mmol/L) 29 Anion Gap (5 - 16) 10 BUN (9 - 20 mg/dL) 79 H Creatinine (0.7 - 1.2 mg/dL) 3.1 H Estimated GFR (>60 ml/min) 20 L BUN/Creatinine Ratio (7 - 25 %) 25.5 H Hematology CBC w Diff NO MAN DIFF REQ WBC (4.8 - 10.8 /CUMM) 8.4 RBC (4.70 - 6.10 /CUMM) 3.23 L Hgb (14.0 - 18.0 G/DL) 8.6 L Hct (42 - 52 %) 26.8 L MCV (80.0 - 94.0 FL) 83.1 MCH (27.0 - 31.0 PG) 26.6 L RDW (11.5 - 14.5 %) 17.3 H Plt Count (130 - 400 /CUMM) 342 MPV (7.4 - 10.4 FL) 7.7 Gran % (42.2 - 75.2 %) 64.0 Lymphocytes % (20.5 - 51.1 %) 26.1 Monocytes % (1.7 - 9.3 %) 9.3 Eosinophils % (0 - 5 %) 0 Basophils % (0.0 - 2.0 %) 0.6 Absolute Granulocytes (1.4 - 6.5 /CUMM) 5.4 Absolute Lymphocytes (1.2 - 3.4 /CUMM) 2.2 Absolute Monocytes (0.10 - 0.60 /CUMM) 0.8 H Absolute Eosinophils (0.0 - 0.7 /CUMM) 0 Absolute Basophils (0.0 - 0.2 /CUMM) 0 PUBS MCHC (33.0 - 37.0 G/DL) 32.1 L Urines Urine Color (YEL,AMB,STR) YEL Urine Clarity (CLEAR) CLDY H Urine pH (5.0 - 8.0) 6.0 Ur Specific [place] (1.001 - 1.035) >= 1.030 Urine Protein (NEG,<30 MG/DL) 30 H Urine Ketones (NEG) TRACE H Urine Nitrite (NEG) POS H Urine Bilirubin (NEG) NEG Urine Urobilinogen (0.1 - 1.0 EU/dl) 1.0 Ur Leukocyte Esterase (NEG) NEG Ur Microscopic SEDIMENT EXAMINED Urine RBC (0 - 5 /HPF) 1-3 Urine WBC (0 - 2 /HPF) 5-10 H Ur Epithelial Cells (NONE,FEW) MANY H Urine Bacteria (NEG/NONE) MANY H Urine Mucus (FEW,NONE) FEW Urine Hemoglobin (NEG) TRACE-LYSED H Urine Glucose (N MG/DL) NEG
--- NOTE | 2016-12-28 11:15 | NUR ---
BLADDER SCANNED PRIOR TO GIVEN LASIX PER FLIGHT LINE SERVICE ATTENDANT DR DICKEY TO ASSESS IF RETAINING URINE. BLADDER SCAN = 11 ML. PER FLIGHT LINE SERVICE ATTENDANT MAY GIVE IV LASIX 40 MG. NOTIFIED DAUGHTER IN LAW REGARDING THE NEED TO MONITOR URINE OUTPUT VIA URINAL BOTTLE. PATIENT REPORTED UNDERSTANDING. WILL CONTINUE TO MONITOR.
--- NOTE | 2016-12-28 11:49 | PN- Housestaff ---
Subjective Follow-up For: Cardiorenal syndrome Acute on chronic CHF Atrial fibrillation converted to normal sinus rhythm after electrical cardioversion Complaints: no complaints Tele-Events Since Last Visit: Normal sinus rhythm, first-degree heart block, AK interval between 0.34 to 0.36, heart rate between 70-76, Subjective: Patient is seen and examined at the bedside. He was not having any active complaints. Review of Systems Constitutional: Denies: no symptoms. Objective Last 24 Hrs of Vital Signs/I&O Vital Signs Date Time Temp Pulse Resp B/P B/P Pulse O2 O2 Flow FiO2 Mean Ox Delivery Rate 12/28 1600 98 Nasal 2.0L Cannula 12/28 1438 97.8 71 18 118/60 97 Nasal 4.0L Cannula 12/28 1259 70 90/50 12/28 1041 70 106/60 12/28 1006 99 Nasal 4.0L Cannula 12/28 0800 Nasal Cannula 12/28 0658 97.5 71 18 98/56 98 Nasal 4.0L Cannula 12/28 0300 98.7 70 18 110/52 93 Nasal 2.0L Cannula 12/28 0000 Nasal 4.0L Cannula 12/27 2303 98.0 73 16 102/58 95 Nasal 4.0L Cannula 12/27 1804 98 Nasal 4.0L Cannula Intake & Output 12/28 1600 12/28 0800 12/28 0000 Intake Total 300 120 530 Output Total 275 50 Balance 300 -155 480 Intake, IV 150 Intake, Oral 300 120 380 Number 1 Bowel Movements Output, Urine 275 50 Patient 77.564 kg Weight Physical Exam General Appearance: Alert, Cooperative, No Acute Distress Skin: pale Cardiovascular: Normal S1, Normal S2, murmur present, Lungs: bilateral cracles, till middle of the chest, Abdomen: Soft, No Tenderness, distended Neurological: Normal Speech Extremities: No Clubbing, No Cyanosis, bilateral lower extremeties pitting edema , Vascular: cannt access because of edema Current Medications: Current Medications Sig/Lenny Start time Last Medication Dose Route Stop Time Status Admin Amiodarone HCl 200 MG DAILY 12/27 1000 AC 12/28 PO 1041 Benzonatate 100 MG TID 12/27 1600 AC 12/28 PO 1607 Folic Acid 2 MG DAILY 12/22 1343 AC 12/28 PO 1041 Furosemide 40 MG DAILY 12/28 1045 AC 12/28 IV 1126 Hydroxychloroquine 200 MG BID 12/22 2200 AC 12/28 Sulfate PO 1041 Insulin Aspart 0 TIDAC 12/26 1200 AC 12/27 SC 1757 Levothyroxine Sodium 0.2 MG DAILY AC 12/23 0700 AC 12/28 PO 0614 Omeprazole 20 MG DAILY AC 12/22 1341 AC 12/28 PO 0614 Prednisone 5 MG DAILY 12/22 1341 AC 12/28 PO 1041 Rivaroxaban 15 MG AT BEDTIME 12/23 2200 AC 12/27 PO 2040 Sodium Chloride 1,000 ML Q20H 12/28 0915 DC 12/28 IV 1041 Last 24 Hrs of Lab/Thomas Results Last 24 Hrs of Labs/Mics: Laboratory Tests 12/28/16 0612: Anion Gap 12, Estimated GFR 17 L, BUN/Creatinine Ratio 27.4 H, Phosphorus 5.8 H, Magnesium 2.5 H 12/27/16 1930: C-Reactive Prot, Quant 2.3 H, C-React Prot High Sens > 15.0 H, ESR Westergren > 130 H Assessment/Plan Assessment: Patient is 76-year-old gentleman with past medical history significant for hypertension, CVA, CHF, rheumatoid arthritis, peptic ulcer and GI bleeding, hypothyroidism, diabetes, who presents to the hospital with worsening dyspnea since 1 day. Assessment - * Acute on chronic CHF - LVEF 30% * Recent onset Atrial fibrillation on Xarelto * Type 2 Diabetes * Hypothyroidism * Hypertension * Hyperlipidemia * GERD * History of CVA, followed by GI bleed secondary to aspirin * Rheumatoid arthritis on methotrexate * History of prostate cancer s/o RT/CT * Anemia of chronic disease * History of pericardial tamponade s/p pericardial window Plan - We will discuss the goals of care with the family Cardio - renal syndrome -Acute Kidney injury secondary to decrease renal perfusion Discussed with Dr. Harris, because of low blood pressure, leading to decreased perfusion to the kidney. But there is no any evidence of ATN. He thinks probably because of the poor ejection fraction patient is having decreased blood pressure and poor renal perfusion. Discussed with Dr. Chapman and common decision was made to give IV Lasix. * We stopped IV fluids * We started on IV lasix 40mg State. * Strict intake output charting * Daily weight measurement * Follow-up creatinine and electrolyte * We will follow nephrology recommendation. Atrial fibrillation with controlled ventricular rate * We will change the dose of tablet amiodarone from 400 milligrams 3 times a day to 200 milligrams daily. * Patient had electrical cardioversion on (12/26/2016). After that Af is converted back to NSR. Acute on chronic CHF * We started on Lasix 40mg IV state, and we will reassess tomorrow for further dosing. * Chest x-ray showed bilateral pleural effusion and loculated effusion in the fissures * We will regularly monitor his creatinine. * Strict intake output charting * Daily weight measurement * Will follow Cardio recs Hypothyroidism, type 2 diabetes, hyperlipidemia, -continue all home medication DVT prophylaxis-Xarelto Diet-heart healthy diet. Fluid restriction to 1 liter CODE STATUS-full code Problem List: 1. Cardiorenal syndrome 2. CHF (congestive heart failure) 3. T2DM (type 2 diabetes mellitus) Pain Ratin Pain Location: not applicable Pain Goal: Remain pain free Pain Plan: avoid NSAIDs Tomorrow's Labs & Rationales: CBC,BEP, mag, Phos - for follow up DVT/Prophylaxis: mechanical, pharmacological
[2016-12-28 12:59] VITALS: BP 90/50
--- NOTE | 2016-12-28 13:52 | PN- Att Addend ---
Attending MD Review Statement Attending Statement Attending MD Statement: examined this patient, discuss w/resident/PA/CTRS, agreed w/resident/PA/CTRS, discussed with family, reviewed EMR data (avail), discussed w/ nursing, discussed w/case mgmt Attending Assessment/Plan: Pt on exam has crackles lung bases and pitting edema b/l lower extremities but his creatinine continues to get worse with prerenal picture which could be secondary to either volume depletion or chf exacerbation. Going to give a trial of lasix iv today and see if that imporves his renal functions. Would also f/u on repeat cxr done today . will repeat probnp again today to see if it is improving or worsening.
[2016-12-28 14:38] VITALS: BP 118/60
--- NOTE | 2016-12-28 15:32 | RADIOLOGY REPORT ---
EXAMINATION: XR PORTABLE CHEST CLINICAL INFORMATION: Shortness of breath. CHF. COMPARISON: Chest multiple prior chest x-rays, most recent of which is dated 12/25/2016. CT scan of the chest dated 07/29/2016. TECHNIQUE: Portable AP semierect view of the chest was obtained. FINDINGS: The cardiomediastinal silhouette is enlarged, unchanged from prior exams. Enlargement of the superior mediastinum is also stable, to represent vascular ectasia on prior CT scan. Calcification, ectasia and tortuosity of the aorta is also stable. There is no interval change in the diffusely increased reticular opacities in the lungs with central vascular congestion, consistent with pulmonary edema. Bilateral pleural thickening is seen, causing increased density along the lower lateral chest baeza and in the CP angles. Superimposed small pleural effusions may be present. There is also a continued large loculated pleural effusion seen in the upper medial aspect of the right major fissure and a smaller loculated fluid collection in the more lateral right major fissure, unchanged. No pneumothorax is seen. The multiple known pulmonary nodules are poorly appreciated on plain film. Bony structures are grossly unremarkable. IMPRESSION: 1. Above findings are consistent with ongoing pulmonary edema, similar to prior exam. 2. Chronic bilateral pleural thickening and 2 loculated pleural fluid collections in the right major fissure again seen.
--- NOTE | 2016-12-28 18:33 | PN- Cardiology ---
Subjective Subjective: Feels unchanged. On telemetry he is maintaining sinus rhythm with first-degree AV block and heart rates in the 60-70 bpm range. Objective Vital Signs and I&Os Vital Signs Date Time Temp Pulse Resp B/P B/P Pulse O2 O2 Flow FiO2 Mean Ox Delivery Rate 12/28 1600 98 Nasal 2.0L Cannula 12/28 1438 97.8 71 18 118/60 97 Nasal 4.0L Cannula 12/28 1259 70 90/50 12/28 1041 70 106/60 12/28 1006 99 Nasal 4.0L Cannula 12/28 0800 Nasal Cannula 12/28 0658 97.5 71 18 98/56 98 Nasal 4.0L Cannula 12/28 0300 98.7 70 18 110/52 93 Nasal 2.0L Cannula 12/28 0000 Nasal 4.0L Cannula 12/27 2303 98.0 73 16 102/58 95 Nasal 4.0L Cannula Intake & Output 12/28 1600 12/28 0800 12/28 0000 12/27 1600 12/27 0800 12/27 0000 Intake Total 300 120 530 750 100 600 Output Total 275 50 225 400 Balance 300 -155 480 525 -300 600 Intake, IV 150 350 Intake, Oral 300 120 380 400 100 600 Number 1 Bowel Movements Output, Urine 275 50 225 400 Patient 171 lb 164 lb Weight Weight Chair scale Measurement Method Physical Exam: Well-developed, well-nourished elderly male in no acute distress with nasal oxygen in place. Vital signs: See above. HEENT: Normocephalic, atraumatic, EOMI, moist mucous membranes. Neck: No JVD, no bruits. Lungs: Decreased breath sounds bilaterally with crackles at the bases, R>L . Heart: S1, S2 with grade 1/6 systolic murmur and PMI laterally displaced and diffuse. Abdomen: Soft, nontender, positive bowel sounds. Extremities: 2+ bilateral lower extremity edema . Current Medications: Current Medications Sig/Lenny Start time Last Medication Dose Route Stop Time Status Admin Amiodarone HCl 200 MG DAILY 12/27 1000 AC 12/28 PO 1041 Benzonatate 100 MG TID 12/27 1600 AC 12/28 PO 1607 Folic Acid 2 MG DAILY 12/22 1343 AC 12/28 PO 1041 Furosemide 40 MG DAILY 12/28 1045 AC 12/28 IV 1126 Hydroxychloroquine 200 MG BID 12/22 2200 AC 12/28 Sulfate PO 1041 Insulin Aspart 0 TIDAC 12/26 1200 AC 12/27 SC 1757 Levothyroxine Sodium 0.2 MG DAILY AC 12/23 0700 AC 12/28 PO 0614 Omeprazole 20 MG DAILY AC 12/22 1341 AC 12/28 PO 0614 Prednisone 5 MG DAILY 12/22 1341 AC 12/28 PO 1041 Rivaroxaban 15 MG AT BEDTIME 12/23 2200 AC 12/27 PO 2040 Sodium Chloride 1,000 ML Q20H 12/28 0915 DC 12/28 IV 1041 Results Last 48 Hrs of Labs/Mics: Laboratory Tests 12/28/16 0612: Anion Gap 12, Estimated GFR 17 L, BUN/Creatinine Ratio 27.4 H, Phosphorus 5.8 H, Magnesium 2.5 H 12/27/16 1930: C-Reactive Prot, Quant 2.3 H, C-React Prot High Sens > 15.0 H, ESR Westergren > 130 H 12/27/16 1430: Ur Random Creatinine 110.8, Ur Random Sodium < 5 L, Ur Random Potassium 57.5, Fraction Sodium Excret 12/27/16 0610: Anion Gap 11, Estimated GFR 18 L, BUN/Creatinine Ratio 26.1 H, Phosphorus 5.8 H, Magnesium 2.3 Recent Imaging Studies: CXR (12/28/2016): Findings are consistent with ongoing pulmonary edema, similar to prior exam. Chronic bilateral pleural thickening and 2 loculated pleural fluid collections in the right major fissure again seen. Assessment/Plan Assessment/Plan 50-l-d-w-m-w/ hx stroke at age 45 years complicated by GI bleed secondary to ASA Rx, HTN, HLD, hypothyroidism, GERD, RA s/p MTX Rx, prostate ca s/p hormone and radiation therapy, previous hemolytic anemia, pericardial tamponade s/p urgent pericardial window, HF [HFpEF], recurrent aspiration, recently discovered AF w/ MVR for which anticoagulation was initiated and w/ a significant deterioration in his LVEF echocardiography (EF 30%) performed for worsening complaints SOB () who presented to the ED on 12/22/2016 w/ c/o worsening SOB, dry cough, bilateral LE edema, orthopnea, etc., despite his enrollment in the heart wellness clinic where he has received IV furosemide on a 2x weekly basis (60 mg) , along with daily by mouth furosemide (20mg 2 daily). Suspect his left ventricular decompensation may be on the basis of atrial fibrillation with more rapid than previously documented ventricular response rates that may have led to a tachycardia mediated cardiomyopathy. He has been anticoagulated with Xarelto for over a month, was loaded with amiodarone, and underwent successful electrical cardioversion on Monday (2016) with one 200 J shock while under TIVA (total intravenous anesthesia) and appears to be maintaining sinus rhythm thus far. He has cardiorenal syndrome, physical findings of volume overload, and CXR evidence of pulmonary edema with worsening BUN/creatinine. Recommendations: * Continue on telemetry telemetry. Note, no evidence of myocardial necrosis by serial troponins. * Continue to load with amiodarone, but cut down to 400 mg by mouth 2 times daily. * Continue Furosemide 40 mg IV twice daily and consider the addition of metolazone 2.5-5 mg one half hour before giving the a.m. dosage of IV furosemide for the next 24 hours and reassess the need for further IV diuresis based on response, BUN/creatinine, potassium, etc. * Continue the rest of his cardiac medications, except by mouth furosemide. * Repeat CXR in a.m. following good diuresis. * DVT prophylaxis being addressed by anticoagulation for his atrial fibrillation. Continue telemetry? Yes
[2016-12-28 19:59] VITALS: BP 106/60
[2016-12-28 23:03] VITALS: BP 106/68
--- NOTE | 2016-12-29 10:34 | PN- Housestaff ---
Subjective Follow-up For: Cardiorenal syndrome Acute on chronic CHF Atrial fibrillation converted to normal sinus rhythm after electrical cardioversion Complaints: no complaints Tele-Events Since Last Visit: Normal sinus rhythm, first-degree heart block, heart rate between 67-71, no any overnight events Subjective: Patient is seen and examined at the bedside. Most of the interpretation was done by relative. According to that he is feeling much comfortable. He denies any cough and shortness of the cath. Review of Systems Constitutional: Denies: no symptoms. Objective Last 24 Hrs of Vital Signs/I&O Vital Signs Date Time Temp Pulse Resp B/P B/P Pulse O2 O2 Flow FiO2 Mean Ox Delivery Rate 12/29 1536 Nasal 2.0L Cannula 12/29 1515 Nasal 2.0L Cannula 12/29 1450 97.8 71 20 102/62 97 Nasal 2.0L Cannula 12/29 0920 71 102/60 12/29 0800 96 Nasal 2.0L Cannula 12/29 0000 96 Nasal 2.0L Cannula 12/28 2303 97.5 73 20 106/68 98 Nasal 2.0L Cannula 12/28 1959 97.6 73 20 106/60 96 Nasal 3.0L Cannula Intake & Output 12/29 1600 12/29 0800 12/29 0000 Intake Total 480 200 370 Output Total 500 300 500 Balance -20 -100 -130 Intake, IV 10 Intake, Oral 480 200 360 Output, Urine 500 300 500 Patient 76.43 kg Weight Weight Chair scale Measurement Method Physical Exam General Appearance: Alert, Cooperative, No Acute Distress Cardiovascular: Normal S1, Normal S2, murmur present Lungs: bilateral basilar crackles Abdomen: Soft, No Tenderness Neurological: Normal Speech Extremities: No Clubbing, No Cyanosis, bilateral lower extremeties pitting edema Current Medications: Current Medications Sig/Lenny Start time Last Medication Dose Route Stop Time Status Admin Amiodarone HCl 200 MG DAILY 12/27 1000 AC 12/29 PO 0920 Benzonatate 100 MG TID 12/27 1600 AC 12/29 PO 1558 Folic Acid 2 MG DAILY 12/22 1343 AC 12/29 PO 0920 Furosemide 40 MG ONCE ONE 12/29 1530 DC 12/29 IV 12/29 1531 1558 Furosemide 40 MG DAILY 12/28 1045 DC 12/29 IV 0921 Hydroxychloroquine 200 MG BID 12/22 2200 AC 12/29 Sulfate PO 0921 Insulin Aspart 0 TIDAC 12/26 1200 AC 12/27 SC 1757 Levothyroxine Sodium 0.2 MG DAILY AC 12/23 0700 AC 12/29 PO 0649 Metolazone 2.5 MG DAILY 12/29 1000 AC 12/29 PO 1219 Omeprazole 20 MG DAILY AC 12/22 1341 AC 12/29 PO 0649 Patient Medication 1 ED .[facility] 12/29 1423 [place] Teaching ED 12/29 1424 Prednisone 5 MG DAILY 12/22 1341 AC 12/29 PO 0921 Rivaroxaban 15 MG AT BEDTIME 12/23 2200 AC 12/28 PO 2107 Last 24 Hrs of Lab/Thomas Results Last 24 Hrs of Labs/Mics: Laboratory Tests 12/29/16 0617: Anion Gap 13, Estimated GFR 18 L, BUN/Creatinine Ratio 30.0 H, Pro-B- Natriuretic Pept 7470 H Assessment/Plan Assessment: Patient is 76-year-old gentleman with past medical history significant for hypertension, CVA, CHF, rheumatoid arthritis, peptic ulcer and GI bleeding, hypothyroidism, diabetes, who presents to the hospital with worsening dyspnea since 1 day. Assessment - * Acute on chronic CHF - LVEF 30% * Recent onset Atrial fibrillation on Xarelto * Type 2 Diabetes * Hypothyroidism * Hypertension * Hyperlipidemia * GERD * History of CVA, followed by GI bleed secondary to aspirin * Rheumatoid arthritis on methotrexate * History of prostate cancer s/o RT/CT * Anemia of chronic disease * History of pericardial tamponade s/p pericardial window Plan - We will discuss the goals of care with the family Cardio - renal syndrome -Acute Kidney injury secondary to decrease renal perfusion Discussed with Dr. Harris, because of low blood pressure, leading to decreased perfusion to the kidney. But there is no any evidence of ATN. He thinks probably because of the poor ejection fraction patient is having decreased blood pressure and poor renal perfusion. Discussed with Dr. Harris /Dr Chapman - started on Metolazone/lasix. * Started patient on Metolazone 2.5 milligrams once and followed by injection Lasix 40 milligrams IV after 30 minutes. We will also repeat the Lasix to 6 hours with the same doses. * Strict intake output charting * Daily weight measurement * Follow-up creatinine and electrolyte * We will follow nephrology recommendation. Atrial fibrillation with controlled ventricular rate * We changed the dose of tablet amiodarone from 400 milligrams 3 times a day to 200 milligrams daily according to Dr Larios. * Patient had electrical cardioversion on (12/26/2016). After that Af is converted back to NSR. Acute on chronic CHF * Started patient on Metolazone 2.5 milligrams once and followed by injection Lasix 40 milligrams IV after 30 minutes. We will also repeat the Lasix to 6 hours with the same doses. * Chest x-ray showed bilateral pleural effusion and loculated effusion in the fissures * We will regularly monitor his creatinine. * Strict intake output charting * Daily weight measurement * Will follow Cardio recs Hypothyroidism, type 2 diabetes, hyperlipidemia, -continue all home medication DVT prophylaxis-Xarelto Diet-heart healthy diet. Fluid restriction to 1 liter CODE STATUS-full code Problem List: 1. CHF (congestive heart failure) 2. Cardiorenal syndrome 3. Diabetes Pain Ratin Pain Location: not applicable Pain Goal: Remain pain free Pain Plan: avoid NSAIDs Tomorrow's Labs & Rationales: BEP - for f/u DVT/Prophylaxis: mechanical, pharmacological
--- NOTE | 2016-12-29 11:51 | PN- Nephrology ---
Assessment/Plan Assessment: 1. Acute kidney injury. His serum creatinine is decreased to 3.3 area his chest x-ray coupled with the urinary indices are consistent with decompensated congestive heart failure causing severe prerenal azotemia. Plans for metolazone and furosemide are noted. Would suggest using the furosemide twice a day along with the metolazone once a day. Would write for this essentially as once only dosing in order to reassess the response before diuretics are readministered 2. Status post cardioversion for A. fib 3. Dilated cardiomyopathy Suggestion: 1. As noted, would use furosemide twice a day in the IV form. In addition, would have a low threshold for increasing the dose. Easing the metolazone once today is likewise a good idea. 2. Please maintain strict I's and O's and daily weights. 3. Apparently another provider had raise the issue of renal replacement therapy. The patient's was in tears explained that there is still quite a bit of room with which to maneuver his diuretic regimen. Renal replacement therapy remains choice of last resort. His current dosing of furosemide is relatively small. He has not yet been placed on a furosemide infusion. I think it rather premature to raise that possibility with the patient. Subjective Subjective: Patient sitting up in the chair. He says he feels okay. Objective Vital Signs and I&Os Vital Signs Date Time Temp Pulse Resp B/P B/P Pulse O2 O2 Flow FiO2 Mean Ox Delivery Rate 12/29 0920 71 102/60 12/29 0800 96 Nasal 2.0L Cannula 12/29 0000 96 Nasal 2.0L Cannula 12/28 2303 97.5 73 20 106/68 98 Nasal 2.0L Cannula 12/28 1959 97.6 73 20 106/60 96 Nasal 3.0L Cannula 12/28 1600 98 Nasal 2.0L Cannula 12/28 1438 97.8 71 18 118/60 97 Nasal 4.0L Cannula 12/28 1259 70 90/50 Intake & Output 12/29 0400 12/28 0400 12/27 040 Intake Total 370 420 530 850 600 Output Total 500 275 50 625 Balance -130 145 480 225 600 Intake, IV 10 150 350 Intake, Oral 360 420 380 500 600 Number 1 Bowel Movements Output, Urine 500 275 50 625 Patient 171 lb 164 lb Weight Weight Chair scale Measurement Method Physical Exam: General Appearance: well developed/nourished, no apparent distress, alert, awake , comfortable, obese Head: atraumatic, normal appearance Ears, Nose, Throat: hearing grossly normal Neck: normal inspection, supple, trachea mid line Respiratory: normal breath sounds, chest non-tender Cardiovascular: regular rate/rhythm, edema Abdomen: normal bowel sounds, soft, non-tender, no organomegaly, sitting up in a chair Back: normal inspection, no vertebral tenderness, no CVA tenderness Extremities: Bilateral link-ankle and sacral edema. Skin: no rash itching or jaundice Current Medications: Current Medications Sig/Lenny Start time Last Medication Dose Route Stop Time Status Admin Amiodarone HCl 200 MG DAILY 12/27 1000 AC 12/29 PO 0920 Benzonatate 100 MG TID 12/27 1600 AC 12/29 PO 0921 Folic Acid 2 MG DAILY 12/22 1343 AC 12/29 PO 0920 Furosemide 40 MG ONCE ONE 12/29 1530 AC IV 12/29 1531 Furosemide 40 MG DAILY 12/28 1045 DC 12/29 IV 0921 Hydroxychloroquine 200 MG BID 12/22 2200 AC 12/29 Sulfate PO 0921 Insulin Aspart 0 TIDAC 12/26 1200 AC 12/27 SC 1757 Levothyroxine Sodium 0.2 MG DAILY AC 12/23 0700 AC 12/29 PO 0649 Metolazone 2.5 MG DAILY 12/29 1000 AC PO Omeprazole 20 MG DAILY AC 12/22 1341 AC 12/29 PO 0649 Prednisone 5 MG DAILY 12/22 1341 AC 12/29 PO 0921 Rivaroxaban 15 MG AT BEDTIME 12/23 220 AC 12/28 PO 2107 Results Pertinent Lab Results: Laboratory Tests 12/29 12/28 12/27 12/27 0617 0612 1930 1430 Chemistry Sodium (137 - 145 mmol/L) 132 L 133 L Potassium (3.5 - 5.1 mmol/L) 4.6 5.0 Chloride (98 - 107 mmol/L) 92 L 93 L Carbon Dioxide (22 - 30 mmol/L) 27 27 Anion Gap (5 - 16) 13 12 BUN (9 - 20 mg/dL) 99 H 96 H Creatinine (0.7 - 1.2 mg/dL) 3.3 H 3.5 H Estimated GFR (>60 ml/min) 18 L 17 L BUN/Creatinine Ratio (7 - 25 %) 30.0 H 27.4 H Phosphorus (2.5 - 4.5 mg/dL) 5.8 H Magnesium (1.6 - 2.3 mg/dL) 2.5 H C-Reactive Prot, Quant (<1.0 mg/dL) 2.3 H C-React Prot High Sens (1.0 - 3.0 mg/L) > 15.0 H [id number] Pept (<125 pg/mL) 7470 H Hematology ESR Westergren (0 - 10 MM) > 130 H Urines Ur Random Creatinine (mg/dL) 110.8 Ur Random Sodium (30 - 90 mmol/L) < 5 L Ur Random Potassium (mmol/L) 57.5 Fraction Sodium Excret (<1% %) 12/27 0610 Chemistry Sodium (137 - 145 mmol/L) 133 L Potassium (3.5 - 5.1 mmol/L) 4.7 Chloride (98 - 107 mmol/L) 93 L Carbon Dioxide (22 - 30 mmol/L) 28 Anion Gap (5 - 16) 11 BUN (9 - 20 mg/dL) 86 H Creatinine (0.7 - 1.2 mg/dL) 3.3 H Estimated GFR (>60 ml/min) 18 L BUN/Creatinine Ratio (7 - 25 %) 26.1 H Phosphorus (2.5 - 4.5 mg/dL) 5.8 H Magnesium (1.6 - 2.3 mg/dL) 2.3 Imaging/Other Studies: PATIENT: NINA NELSON PRESENT AGE: 76 PATIENT ACCOUNT NO: [id number] : 38 LOCATION: [facility] ORDERING PHYSICIAN: LINDSEY DICKEY MD SERVICE DATE: 12/28/16 EXAM TYPE: RAD - XRY-PORTABLE CHEST XRAY EXAMINATION: XR PORTABLE CHEST CLINICAL INFORMATION: Shortness of breath. CHF. COMPARISON: Chest multiple prior chest x-rays, most recent of which is dated 12/25/2016. CT scan of the chest dated 07/29/2016. TECHNIQUE: Portable AP semierect view of the chest was obtained. FINDINGS: The cardiomediastinal silhouette is enlarged, unchanged from prior exams. Enlargement of the superior mediastinum is also stable, to represent vascular ectasia on prior CT scan. Calcification, ectasia and tortuosity of the aorta is also stable. There is no interval change in the diffusely increased reticular opacities in the lungs with central vascular congestion, consistent with pulmonary edema. Bilateral pleural thickening is seen, causing increased density along the lower lateral chest baeza and in the CP angles. Superimposed small pleural effusions may be present. There is also a continued large loculated pleural effusion seen in the upper medial aspect of the right major fissure and a smaller loculated fluid collection in the more lateral right major fissure, unchanged. No pneumothorax is seen. The multiple known pulmonary nodules are poorly appreciated on plain film. Bony structures are grossly unremarkable. IMPRESSION: 1. Above findings are consistent with ongoing pulmonary edema, similar to prior exam. 2. Chronic bilateral pleural thickening and 2 loculated pleural fluid collections in the right major fissure again seen. DICTATED BY: LEXY TELLES,NARDA Fenton DATE/TIME DICTATED:12/28/161517 RISK ENGINEER:UTE DATE/TIME TRANSCRIBED:12/28/161517 CONFIDENTIAL, DO NOT COPY WITHOUT APPROPRIATE AUTHORIZATION.
--- NOTE | 2016-12-29 13:55 | PN- Att Addend ---
Attending MD Review Statement Attending Statement Attending MD Statement: examined this patient, discuss w/resident/PA/COMMERCIAL MARKETING SPECIALIST, agreed w/resident/PA/COMMERCIAL MARKETING SPECIALIST, discussed with family, reviewed EMR data (avail), discussed w/ nursing, discussed w/case mgmt Attending Assessment/Plan: Laboratory Tests 12/29/16 0617: Anion Gap 13, Estimated GFR 18 L, BUN/Creatinine Ratio 30.0 H, Pro-B- Natriuretic Pept 7470 H Vital Signs Date Time Temp Pulse Resp B/P B/P Pulse O2 O2 Flow FiO2 Mean Ox Delivery Rate 12/29 0920 71 102/60 12/29 0800 96 Nasal 2.0L Cannula 12/29 0000 96 Nasal 2.0L Cannula 12/28 2303 97.5 73 20 106/68 98 Nasal 2.0L Cannula 12/28 1959 97.6 73 20 106/60 96 Nasal 3.0L Cannula 12/28 1600 98 Nasal 2.0L Cannula 12/28 1438 97.8 71 18 118/60 97 Nasal 4.0L Cannula XI secondary to acute systolic chf exacerbation. Plan to give one dose of iv lasix 40mg after one dose of metalozone 2.5 mg in am. Will see how he does by tomorrow morning. Creatinine better at 3.3 today from yesterday of 3.5. Acute systolic chf exacerbation- will need to monitor strict I & O and will cont with lasix and metalazone as needed. Hypoxia with ambulation to 86 % on NC today. Will need to see if pt will need to go to [facility] vs Home with Home PT. Will reevaluate need for oxygen prior to discharge. d/w pts son at bedside the care plan
[2016-12-29 14:50] VITALS: BP 102/62
--- NOTE | 2016-12-29 17:32 | PN- Cardiology ---
Subjective Subjective: "Better" Maintaining sinus rhythm with first-degree AV block on telemetry. Objective Vital Signs and I&Os Vital Signs Date Time Temp Pulse Resp B/P B/P Pulse O2 O2 Flow FiO2 Mean Ox Delivery Rate 12/29 1600 97 Nasal 3.0L Cannula 12/29 1536 Nasal 2.0L Cannula 12/29 1515 Nasal 2.0L Cannula 12/29 1450 97.8 71 20 102/62 97 Nasal 2.0L Cannula 12/29 0920 71 102/60 12/29 0800 96 Nasal 2.0L Cannula 12/29 0000 96 Nasal 2.0L Cannula 12/28 2303 97.5 73 20 106/68 98 Nasal 2.0L Cannula 12/28 1959 97.6 73 20 106/60 96 Nasal 3.0L Cannula Intake & Output 12/29 1600 12/29 0800 12/29 0000 12/28 1600 12/28 0800 12/28 0000 Intake Total 480 200 370 300 120 530 Output Total 500 300 500 275 50 Balance -20 -100 -130 300 -155 480 Intake, IV 10 150 Intake, Oral 480 200 360 300 120 380 Number 1 Bowel Movements Output, Urine 500 300 500 275 50 Patient 169 lb 171 lb Weight Weight Chair scale Measurement Method Physical Exam: Well-developed, well-nourished elderly male in no acute distress with nasal oxygen in place. Vital signs: See above. Neck: No JVD. Lungs: Bibasilar crackles ~1/2 way up R>L. Heart: S1, S2 with grade 1/6 systolic murmur. Extremities: 2+ bilateral lower lezama edema. Assessment/Plan Assessment/Plan 79-r-q-w-m-w/ hx stroke at age 45 years complicated by GI bleed secondary to ASA Rx, HTN, HLD, hypothyroidism, GERD, RA s/p MTX Rx, prostate ca s/p hormone and radiation therapy, previous hemolytic anemia, pericardial tamponade s/p urgent pericardial window, HF [HFpEF], recurrent aspiration, recently discovered AF w/ MVR for which anticoagulation was initiated and w/ a significant deterioration in his LVEF echocardiography (EF 30%) performed for worsening complaints SOB () who presented to the ED on 12/22/2016 w/ c/o worsening SOB, dry cough, bilateral LE edema, orthopnea, etc., despite his enrollment in the heart wellness clinic where he has received IV furosemide on a 2x weekly basis (60 mg) , along with daily by mouth furosemide (20mg 2 daily). Suspect his left ventricular decompensation may be on the basis of atrial fibrillation with more rapid than previously documented ventricular response rates that may have led to a tachycardia mediated cardiomyopathy. He has been anticoagulated with Xarelto for over a month, was loaded with amiodarone, and underwent successful electrical cardioversion on Monday (2016) with one 200 J shock while under TIVA (total intravenous anesthesia) and appears to be maintaining sinus rhythm thus far. He has cardiorenal syndrome w/ physical findings of volume overload and CXR evidence of pulmonary edema with slightly improved creatinine. Need negative fluid balance. Recommendations: * Continue on telemetry telemetry. * Strict inputs/outputs and daily weights. * Continue to load with amiodarone, but cut down to 400 mg by mouth 2 times daily. * Continue metolazone 2.5-5 mg one half hour prior to giving a.m. IV furosemide 40-60 mg IV. Additionally, give p.m. IV furosemide 40-60 mg. * Continue the rest of his cardiac medications, except by mouth furosemide. * Repeat CXR in a.m. only if good diuresis. * DVT prophylaxis being addressed by anticoagulation for his atrial fibrillation. Continue telemetry? Yes
[2016-12-29 22:50] VITALS: BP 110/60
[2016-12-30 07:16] VITALS: BP 98/62
--- NOTE | 2016-12-30 07:17 | PN- Housestaff ---
Subjective Follow-up For: Cardiorenal syndrome Acute on chronic CHF Atrial fibrillation converted to normal sinus rhythm after electrical cardioversion Complaints: no complaints Tele-Events Since Last Visit: Normal sinus rhythm, first-degree heart block, heart rate between 66-69, no any overnight events Subjective: Patient is seen and examined at the bedside. He denies for any active complains Review of Systems Constitutional: Denies: no symptoms. Objective Last 24 Hrs of Vital Signs/I&O Vital Signs Date Time Temp Pulse Resp B/P B/P Pulse O2 O2 Flow FiO2 Mean Ox Delivery Rate 12/30 0954 100/60 12/30 0840 95 Nasal 3.0L Cannula 12/30 0716 98.1 70 18 98/62 98 Nasal Cannula 12/30 0000 94 Nasal 3.0L Cannula 12/29 2250 97.8 78 18 110/60 98 Nasal Cannula 12/29 1600 97 Nasal 3.0L Cannula 12/29 1536 Nasal 2.0L Cannula 12/29 1515 Nasal 2.0L Cannula 12/29 1450 97.8 71 20 102/62 97 Nasal 2.0L Cannula Intake & Output 12/30 1600 12/30 0800 12/30 0000 Intake Total 120 420 Output Total 600 600 Balance -480 -180 Intake, Oral 120 420 Output, Urine 600 600 Patient 75.296 kg Weight Weight Chair scale Measurement Method Physical Exam General Appearance: Alert, Cooperative, No Acute Distress Cardiovascular: Normal S1, Normal S2, murmure present Lungs: bilateral basilar crackles at the base of both lungs Abdomen: Soft, No Tenderness Neurological: Normal Speech Extremities: No Clubbing, No Cyanosis, bilateral both extremeties edema Current Medications: Current Medications Sig/Lenny Start time Last Medication Dose Route Stop Time Status Admin Amiodarone HCl 200 MG DAILY 12/27 1000 AC 12/30 PO 0954 Benzonatate 100 MG TID 12/27 1600 AC 12/30 PO 0954 Folic Acid 2 MG DAILY 12/22 1343 AC 12/30 PO 0953 Furosemide 40 MG 1730 12/30 1730 AC IV 12/30 1731 Furosemide 40 MG ONCE ONE 12/30 1045 DC 12/30 IV 12/30 1046 1129 Furosemide 40 MG ONCE ONE 12/29 1530 DC 12/29 IV 12/29 1531 1558 Hydroxychloroquine 200 MG BID 12/22 2200 AC 12/30 Sulfate PO 0954 Insulin Aspart 0 TIDAC 12/26 1200 AC 12/29 SC 1705 Levothyroxine Sodium 0.2 MG DAILY AC 12/23 0700 AC 12/30 PO 0614 Metolazone 2.5 MG DAILY 12/29 1000 AC 12/30 PO 1033 Omeprazole 20 MG DAILY AC 12/22 1341 AC 12/30 PO 0614 Patient Medication 1 ED .STK-MED ONE 12/29 1423 [place] Teaching ED 12/29 1424 Prednisone 5 MG DAILY 12/22 1341 AC 12/30 PO 0954 Rivaroxaban 15 MG AT BEDTIME 12/23 2200 AC 12/29 PO 2111 Last 24 Hrs of Lab/Thomas Results Last 24 Hrs of Labs/Mics: Laboratory Tests 12/30/16 0620: Anion Gap 8, Estimated GFR 17 L, BUN/Creatinine Ratio 30.0 H Assessment/Plan Assessment: Patient is 76-year-old gentleman with past medical history significant for hypertension, CVA, CHF, rheumatoid arthritis, peptic ulcer and GI bleeding, hypothyroidism, diabetes, who presents to the hospital with worsening dyspnea since 1 day. Assessment - * Acute on chronic CHF - LVEF 30% * Recent onset Atrial fibrillation on Xarelto * Type 2 Diabetes * Hypothyroidism * Hypertension * Hyperlipidemia * GERD * History of CVA, followed by GI bleed secondary to aspirin * Rheumatoid arthritis on methotrexate * History of prostate cancer s/o RT/CT * Anemia of chronic disease * History of pericardial tamponade s/p pericardial window Plan - We will discuss the goals of care with the family Cardio - renal syndrome -Acute Kidney injury secondary to decrease renal perfusion Discussed with Dr. Harris, because of low blood pressure, leading to decreased perfusion to the kidney. But there is no any evidence of ATN. He thinks probably because of the poor ejection fraction patient is having decreased blood pressure and poor renal perfusion. Discussed with Dr. Harris /Dr Chapman - started on Metolazone/lasix. * Continue Metolazone 2.5 milligrams daily and followed by injection Lasix 40 milligrams IV after 30 minutes. We will also repeat the Lasix to 6 hours with the same doses. * Strict intake output charting * Daily weight measurement * Follow-up creatinine and electrolyte * We will follow nephrology recommendation. Atrial fibrillation with controlled ventricular rate * We changed the dose of tablet amiodarone from 400 milligrams 3 times a day to 200 milligrams daily according to Dr Larios. * Patient had electrical cardioversion on (12/26/2016). After that Af is converted back to NSR. Acute on chronic CHF * Continue Metolazone 2.5 milligrams daily and followed by injection Lasix 40 milligrams IV after 30 minutes. We will also repeat the Lasix to 6 hours with the same doses. * Chest x-ray showed Improved aeration at both lung bases and apparent slight decrease in size of bilateral pleural effusions since the prior study dated . No othersignificant change. * We will regularly monitor his creatinine. * Strict intake output charting * Daily weight measurement * Will follow Cardio recs Hypothyroidism, type 2 diabetes, hyperlipidemia, -continue all home medication DVT prophylaxis-Xarelto Diet-heart healthy diet. Fluid restriction to 1 liter CODE STATUS-full code Problem List: 1. T2DM (type 2 diabetes mellitus) 2. CHF exacerbation 3. Cardiorenal syndrome Pain Ratin Pain Location: not applicable Pain Goal: Remain pain free Pain Plan: Avoid NSAIDs Tomorrow's Labs & Rationales: BEP, Mg, Phoshorus for f/u DVT/Prophylaxis: mechanical, pharmacological
--- NOTE | 2016-12-30 08:08 | Discharge Summary ---
Visit Information Visit Dates Admission Date: 12/22/16 Discharge Date: 01/06/17 Hospital Course Course Attending Physician: EUGENIA SANCHEZ MD Primary Care Physician: BRONWYN TELLES,[facility] Course: 76-y-o-w-m w/ hx stroke at age 45 years complicated by GI bleed secondary to ASA Rx, HTN, HLD, hypothyroidism, GERD, RA s/p MTX Rx, prostate ca s/p hormone and radiation therapy, previous hemolytic anemia, pericardial tamponade s/p urgent pericardial window, HF [HFpEF], recurrent aspiration, recently discovered AF w/ MVR for which anticoagulation was initiated and w/ a significant deterioration in his LVEF echocardiography (EF 30%) performed for worsening complaints SOB () who presented to the ED on 12/22/2016 w/ c/o worsening SOB, dry cough, bilateral LE edema, orthopnea, etc., despite his enrollment in the heart wellness clinic where he has received IV furosemide on a 2x weekly basis (60 mg) , along with daily by mouth furosemide (20mg 2 daily). He was anticoagulated with Xarelto for over a month, was loaded with amiodarone, and underwent successful electrical cardioversion on Monday (12/26/2016) with one 200 J shock while under TIVA (total intravenous anesthesia) and appears to be maintaining sinus rhythm thus far. Chest x-ray -showed pulmonary edema and small right-sided pleural effusion and stable right fissure fluid collection Patient was treated in the hospital for : Acute on chronic CHF complicated by cardiorenal syndrome Patient presented with gradually progressive shortness of breath along with increased oxygen requirement. Patient was admitted to telemetry floor diuresed with IV Lasix 40 milligrams IV twice a day. Initially he responded well, but his blood pressure dropped down so Lasix was held for 24 hours , later restarted due to worsening pulmonary edema. Nephrology and cardiology were consulted and it seemed that worsening kidney disease was most likely due to decreased renal perfusion in the setting of low blood pressure and poor ejection fraction leading to cardiorenal syndrome. Patient was actively diuresed with IV Lasix and metolazone with close blood pressure monitoring as per nephrology recommendations. BEP was checked daily and electrolytes were repleted as needed. I's and O's were strictly monitored and daily weight checks done. Patient was restricted with 1000 liter of fluid daily.He had suspected cardiorenal syndrome vs ATN w/ physical findings of volume overload and CXR evidence of persistent pulmonary edema with unchanged creatinine, anemia, etc.he Xarelto was discontinued given his renal issues and he is now on warfarin with IV heparin bridging.Since the patient's renal function dis not show significant improvement , he is being transferred to [facility] for a possible biventricular pacemaker placement by Dr Russell. Patient is being sent on a heparin drip. Atrial fibrillation converted to normal sinus rhythm after electrical cardioversion Patient had developed decompensated heart failure in the setting of recently developed atrial fibrillation. Since he was already anticoagulated with Xarelto , electrical cardioversion was attempted with amiodarone as per cardiology recommendations. Patient successfully cardioverted o(12/26/2016), remained in normal sinus rhythm afterwards. Amiodarone, metoprolol and Xarelto were continued. No more runs of A. fib and noted on the setter molding and coremaking machines. Acute kidney injury: Almost certainly cardiorenal in origin.No other clear nephrotoxic insults. Renal ultrasound did not show any evidence of obstruction or hydronephrosis. IV Lasix was started but later held due to low blood pressure. Once patient's blood pressure stabilized, IV Lasix was continued and metolazone was added.BEP was closely monitored and nephrotoxins were avoided. Xarelto was discontinued due to renal issues and he was started on coumadin with heparin bridge. Spiranolactone was added on to the duiretic regime to improve his renal function. History of rheumatoid arthritis- patient was on prednisone 5 mg at home, however checked in the hospital > 130. His prednisone dose was increased from 5-10 mg and plaquenil was continued. Patient was instructed to follow up with hotel service supervisor post discharge. Hypothyroidism, type 2 diabetes, hyperlipidemia, -home medications were continued, OHA drugs stopped. Patient maintained on sliding scale insulin DVT prophylaxis-iv heparin/ coumadin Diet-heart healthy diet. Fluid restriction to 1 liter CODE STATUS-full code Allergies: Coded Allergies: aspirin (Mild, ULCER 10/13/15) Disposition Summary Disposition Principal Diagnosis: Acute and chronic CHF leading to acute hypoxic respiratory failure and complicated by cardiorenal syndrome Atrial fibrillation converted to normal sinus rhythm after electrical cardioversion Additional Diagnosis: * Acute on chronic CHF - LVEF 30%, following CHF clinic * Recent onset Atrial fibrillation on Xarelto * Type 2 Diabetes * Hypothyroidism * Hypertension * Hyperlipidemia * GERD * History of CVA, followed by GI bleed secondary to aspirin * Rheumatoid arthritis on methotrexate * History of prostate cancer s/o RT/CT * Anemia of chronic disease * History of pericardial tamponade s/p pericardial window Discharge Disposition: SNF Discharge Instructions General Discharge Information Code Status: Full Code Patient's Diet: Diabetic and heart healthy diet with fluid restriction to 1 liter per day, salt restriction 2 2 grams per day Patient's Activity: As tolerated Follow-Up Instructions/Appts: Advised to follow-up with PCP within a week of discharge Advised to follow-up with road test examiner within a week of discharge Advised to follow-up with mother superior as needed Please take the medication as advised Advised to restrict fluid intake to 1 to 1.5 liter per day Medications at Discharge Discharge Medications: Stop taking the following medications: Enalapril Maleate (Vasotec) 10 MG TABLET ORAL DAILY Repaglinide (Prandin) 0.5 MG TABLET ORAL 3 TIMES DAILY BEFORE MEALS Days = 30 Metoprolol Tartrate (Metoprolol Tartrate) 25 MG TABLET ORAL TWICE DAILY Days = 30 Furosemide (Lasix) 40 MG TABLET ORAL TWICE DAILY Omeprazole (Omeprazole) 20 MG CAPSULE.DR ORAL DAILY Qty = 30 Rivaroxaban (Xarelto) 15 MG TABLET ORAL DAILY Continue taking these medications: Levothyroxine Sodium (Levothyroxine Sodium) 0.2 MG TAB 1 Tablet ORAL DAILY Folic Acid (Folic Acid) 1 MG TABLET 2 Milligram ORAL DAILY Comments: Last Taken: 01/06/17 Time: 10:30 AM Hydroxychlorquine (Plaquenil) 200 MG TABLET 1 Tablet ORAL TWICE DAILY Comments: Last Taken: 01/06/17 Time: 10:30 AM Potassium Chloride (Klor-Con M10) 10 MEQ TAB.ER.PRT 1 Tablet ORAL DAILY Comments: Last Taken: 01/06/17 Time: 10:30 AM Ergocalciferol (Vitamin D2) (Vitamin D2) 50,000 UNIT CAPSULE 1 Capsule ORAL EVERY 2 WEEKS Start taking the following new medications: Insulin Aspart (Novolog) 100 UNIT/ML VIAL 0 Units Inject into fatty tissue 3 TIMES DAILY BEFORE MEALS Days = 30 No Refills Instructions: BEFORE MEALS Blood Insulin Sugar Units <80 0 81-100 2 101-200 0 151-200 1 201-250 2 251-300 3 351-400 4 >400 Call Doctor Comments: Last Taken: 01/05/17 Time: 5:30 PM Spironolactone (Aldactone) 25 MG TABLET 25 Milligram ORAL DAILY Qty = 30 No Refills Comments: Last Taken: 01/06/17 Time: 10:30 AM Potassium Chloride (Potassium Chloride) 20 MEQ PACKET 20 Millequivalent ORAL TWICE DAILY Days = 30 No Refills Comments: Last Taken: 01/06/17 Time: 10:30 AM Furosemide (Lasix) 40 MG TABLET 80 Milligram ORAL DAILY Qty = 30 No Refills Comments: Last Taken: 01/06/17 Time: 10:30 AM Prednisone (Prednisone) 10 MG TABLET 10 Milligram ORAL DAILY Qty = 30 No Refills Comments: Last Taken: 01/06/17 Time: 10:30 AM Heparin Sod,Porcine/0.9 % NaCl (Heparin-Ns 25,000 Units/250 Ml) 25,000 UNIT/250 ML (100 UNIT/ML) IV.SOLN 500 Milliliters INTRAVEN EVERY 24 HOURS Days = 7 No Refills Copies To: BRONWYN TELLES,ALICE Attending MD Review Statement Documenting Attending: VICTORINO OBIREN MD Other Findings: The patient was seen and discussed with house staff. OK to transfer to [facility] today for pacemaker placement.
--- NOTE | 2016-12-30 09:10 | RADIOLOGY REPORT ---
EXAMINATION: XR CHEST CLINICAL INFORMATION: CHF. COMPARISON: Chest done on 12/28/2016. TECHNIQUE: 2 views of the chest were obtained. FINDINGS: Evidence of mild cardiomegaly and likely interstitial edema and pulmonary venous hypertension are reidentified and appear unchanged. There is, however, definite improved aeration noted at both lung bases since the prior study. The size of pleural effusions also appear to have minimally decreased bilaterally. Previously identified and clinically known loculated pleural effusion at the right suprahilar region and within the right minor fissure appears stable. IMPRESSION: Improved aeration at both lung bases and apparent slight decrease in size of bilateral pleural effusions since the prior study dated 12/28/2016. No other significant change.
--- NOTE | 2016-12-30 10:01 | PN- Nephrology ---
Assessment/Plan Assessment: 1. Acute kidney injury. His serum creatinine increased to 3.5 but he made 1400 cc of urine. He has the clinical picture of acute kidney injury related to his decompensated heart failure. His metolazone was held today. I think treating his heart failure may be the only option for making his kidney function better. Plans for short-term rehabilitation are being explored. He is clearly not ready for short-term rehabilitation with changing renal function. I would favor maintaining the metolazone for today and tomorrow. I would also continue furosemide at twice a day. 2. Status post cardioversion for A. fib 3. Dilated cardiomyopathy. The ultimate cause of his renal failure. Optimizing his heart failure should help his renal function. Suggestion: 1. Please continue the metolazone today and tomorrow. 2. Discuss with cardiology any other strategies for optimizing his congestive heart failure. 3. Would not be in favor of renal replacement therapy at this point. There is no indication at this time area he is making urine in spite of his creatinine going up. 4. Continue with the furosemide. Subjective Subjective: Breathing well. Objective Vital Signs and I&Os Vital Signs Date Time Temp Pulse Resp B/P B/P Pulse O2 O2 Flow FiO2 Mean Ox Delivery Rate 12/30 0954 100/60 12/30 0840 95 Nasal 3.0L Cannula 12/30 0716 98.1 70 18 98/62 98 Nasal Cannula 12/30 0000 94 Nasal 3.0L Cannula 12/29 2250 97.8 78 18 110/60 98 Nasal Cannula 12/29 1600 97 Nasal 3.0L Cannula 12/29 1536 Nasal 2.0L Cannula 12/29 1515 Nasal 2.0L Cannula 12/29 1450 97.8 71 20 102/62 97 Nasal 2.0L Cannula Intake & Output 12/30 1600 12/30 0400 12/29 1600 12/29 0400 12/28 1600 12/28 0400 Intake Total 120 420 680 370 420 530 Output Total 600 600 800 500 275 50 Balance -480 -180 -120 -130 145 480 Intake, IV 10 150 Intake, Oral 120 420 680 360 420 380 Number 1 Bowel Movements Output, Urine 600 600 800 500 275 50 Patient 166 lb 169 lb 171 lb Weight Weight Chair scale Chair scale Measurement Method Physical Exam: General Appearance: well developed/nourished, no apparent distress, alert, awake , comfortable, Head: atraumatic, normal appearance Ears, Nose, Throat: hearing grossly normal Neck: normal inspection, supple, trachea mid line Respiratory: normal breath sounds, chest non-tender, Cardiovascular: regular rate/rhythm, edema Abdomen: normal bowel sounds, soft, non-tender, no organomegaly, sitting up in a chair Back: normal inspection, no vertebral tenderness, no CVA tenderness Extremities: Bilateral link-ankle and sacral edema. Skin: no rash itching or jaundice Current Medications: Current Medications Sig/Lenny Start time Last Medication Dose Route Stop Time Status Admin Amiodarone HCl 200 MG DAILY 12/27 1000 AC 12/30 PO 0954 Benzonatate 100 MG TID 12/27 1600 AC 12/30 PO 0954 Folic Acid 2 MG DAILY 12/22 1343 AC 12/30 PO 0953 Furosemide 40 MG ONCE ONE 12/29 1530 DC 12/29 IV 12/29 1531 1558 Furosemide 40 MG DAILY 12/28 1045 VT 12/29 IV 0921 Hydroxychloroquine 200 MG BID 12/22 2200 AC 12/30 Sulfate PO 0954 Insulin Aspart 0 TIDAC 12/26 1200 AC 12/29 SC 1705 Levothyroxine Sodium 0.2 MG DAILY AC 12/23 0700 AC 12/30 PO 0614 Metolazone 2.5 MG DAILY 12/29 1000 AC 12/29 PO 1219 Omeprazole 20 MG DAILY AC 12/22 1341 AC 12/30 PO 0614 Patient Medication 1 ED .STK-MED ONE 12/29 1423 [place] Teaching ED 12/29 1424 Prednisone 5 MG DAILY 12/22 1341 AC 12/30 PO 0954 Rivaroxaban 15 MG AT BEDTIME 12/23 2200 AC 12/29 PO 2111 Results Pertinent Lab Results: Laboratory Tests 12/30 12/29 12/28 12/27 0620 0617 0612 1930 Chemistry Sodium (137 - 145 mmol/L) 129 L 132 L 133 L Potassium (3.5 - 5.1 mmol/L) 3.9 4.6 5.0 Chloride (98 - 107 mmol/L) 90 L 92 L 93 L Carbon Dioxide (22 - 30 mmol/L) 31 H 27 27 Anion Gap (5 - 16) 8 13 12 BUN (9 - 20 mg/dL) 105 *H 99 H 96 H Creatinine (0.7 - 1.2 mg/dL) 3.5 H 3.3 H 3.5 H Estimated GFR (>60 ml/min) 17 L 18 L 17 L BUN/Creatinine Ratio (7 - 25 %) 30.0 H 30.0 H 27.4 H Phosphorus (2.5 - 4.5 mg/dL) 5.8 H Magnesium (1.6 - 2.3 mg/dL) 2.5 H C-Reactive Prot, Quant (<1.0 mg/dL) 2.3 H C-React Prot High Sens (1.0 - 3.0 mg/L) > 15.0 H [id number] Pept (<125 pg/mL) 7470 H Hematology ESR Westergren (0 - 10 MM) > 130 H 12/27 1430 Urines Ur Random Creatinine (mg/dL) 110.8 Ur Random Sodium (30 - 90 mmol/L) < 5 L Ur Random Potassium (mmol/L) 57.5 Fraction Sodium Excret (<1% %)
--- NOTE | 2016-12-30 13:20 | PN- Att Addend ---
Attending MD Review Statement Attending Statement Attending MD Statement: examined this patient, discuss w/resident/PA/GAME PROGRAMMER, agreed w/resident/PA/GAME PROGRAMMER, discussed with family, reviewed EMR data (avail), discussed w/ nursing, discussed w/case mgmt Attending Assessment/Plan: Laboratory Tests 12/30/16 0620: Anion Gap 8, Estimated GFR 17 L, BUN/Creatinine Ratio 30.0 H Vital Signs Date Time Temp Pulse Resp B/P B/P Pulse O2 O2 Flow FiO2 Mean Ox Delivery Rate 12/30 0954 100/60 12/30 0840 95 Nasal 3.0L Cannula 12/30 0716 98.1 70 18 98/62 98 Nasal Cannula 12/30 0000 94 Nasal 3.0L Cannula 12/29 2250 97.8 78 18 110/60 98 Nasal Cannula 12/29 1600 97 Nasal 3.0L Cannula 12/29 1536 Nasal 2.0L Cannula 12/29 1515 Nasal 2.0L Cannula 12/29 1450 97.8 71 20 102/62 97 Nasal 2.0L Cannula XI secondary to acute systolic chf exacerbation. 12/30- Will give another dose of metalozone and 2 dose of lasix 6 hrs apart. Will f/u on urine output and creatinine. Acute systolic chf exacerbation- will need to monitor strict I & O and will cont with lasix and metalazone for now. Educated pts son about low salt diet and fluid restriction.
--- NOTE | 2016-12-30 14:10 | PN- Cardiology ---
Subjective Subjective: Breathing improved. Modest diuresis following diuretic therapy. Objective Vital Signs and I&Os Vital Signs Date Time Temp Pulse Resp B/P B/P Pulse O2 O2 Flow FiO2 Mean Ox Delivery Rate 12/30 0954 100/60 12/30 0840 95 Nasal 3.0L Cannula 12/30 0716 98.1 70 18 98/62 98 Nasal Cannula 12/30 0000 94 Nasal 3.0L Cannula 12/29 2250 97.8 78 18 110/60 98 Nasal Cannula 12/29 1600 97 Nasal 3.0L Cannula 12/29 1536 Nasal 2.0L Cannula 12/29 1515 Nasal 2.0L Cannula 12/29 1450 97.8 71 20 102/62 97 Nasal 2.0L Cannula Intake & Output 12/30 1600 12/30 0800 12/30 0000 12/29 1600 12/29 0800 12/29 0000 Intake Total 120 420 480 200 370 Output Total 600 600 500 300 500 Balance -480 -180 -20 -100 -130 Intake, IV 10 Intake, Oral 120 420 480 200 360 Output, Urine 600 600 500 300 500 Patient 166 lb 169 lb Weight Weight Chair scale Chair scale Measurement Method Physical Exam: Well-developed, well-nourished elderly male in no acute distress with nasal oxygen in place. Vital signs: See above. Neck: No JVD. Lungs: Bibasilar crackles ~1/2 way up R>L. Heart: S1, S2 with grade 1/6 systolic murmur. Extremities: 2+ bilateral lower extremity edema. Assessment/Plan Assessment/Plan [id number]-w-m-w/ hx stroke at age 45 years complicated by GI bleed secondary to ASA Rx, HTN, HLD, hypothyroidism, GERD, RA s/p MTX Rx, prostate ca s/p hormone and radiation therapy, previous hemolytic anemia, pericardial tamponade s/p urgent pericardial window, HF [HFpEF], recurrent aspiration, recently discovered AF w/ MVR for which anticoagulation was initiated and w/ a significant deterioration in his LVEF echocardiography (EF 30%) performed for worsening complaints SOB () who presented to the ED on 12/22/2016 w/ c/o worsening SOB, dry cough, bilateral LE edema, orthopnea, etc., despite his enrollment in the heart wellness clinic where he has received IV furosemide on a 2x weekly basis (60 mg) , along with daily by mouth furosemide (20mg 2 daily). Suspect his left ventricular decompensation may be on the basis of atrial fibrillation with more rapid than previously documented ventricular response rates that may have led to a tachycardia mediated cardiomyopathy. He was anticoagulated with Xarelto for over a month, was loaded with amiodarone, and underwent successful electrical cardioversion on Monday (12/26/2016) with one 200 J shock while under TIVA (total intravenous anesthesia) and appears to be maintaining sinus rhythm thus far. He has cardiorenal syndrome w/ physical findings of volume overload and CXR evidence of pulmonary edema with slightly improved creatinine. Agree with nephrology that our only option for improving his heart failure is to continue to maintain a negative fluid balance w/ diuretic therapy which may come at the cost of worsening renal function. Recommendations: * Continue on telemetry telemetry. * Strict inputs/outputs and daily weights. * Continue to load with amiodarone, but cut down to 400 mg by mouth 2 times daily. * Continue metolazone 2.5-5 mg one half hour prior to giving a.m. IV furosemide 40-60 mg IV. Additionally, give p.m. IV furosemide 40-60 mg. * Continue the rest of his cardiac medications, except by mouth furosemide. * Repeat CXR in a.m. only if good diuresis. * DVT prophylaxis being addressed by anticoagulation for his atrial fibrillation. Continue telemetry? Yes
[2016-12-30 14:47] VITALS: BP 100/62
[2016-12-30 17:30] VITALS: BP 108/60
[2016-12-30 21:30] VITALS: BP 110/56
[2016-12-31 07:43] VITALS: BP 108/56
--- NOTE | 2016-12-31 12:08 | PN- Cardiology ---
Subjective Subjective: The patient is feeling better. He is ambulatory with physical therapy. He remains in sinus rhythm. He is diuresing slowly. His BUN and creatinine continue to rise. He is on a maintenance dose of amiodarone at this time. Objective Vital Signs and I&Os Vital Signs Date Time Temp Pulse Resp B/P B/P Pulse O2 O2 Flow FiO2 Mean Ox Delivery Rate 12/31 0931 77 108/56 12/31 0800 Nasal 3.0L Cannula 12/31 0743 97.8 77 18 108/56 96 Nasal Cannula 12/31 0000 Nasal 3.0L Cannula 12/30 2130 97.7 72 18 110/56 97 Nasal 2.0L Cannula 12/30 1730 76 108/60 12/30 1600 Nasal 3.0L Cannula 12/30 1447 97.7 72 20 100/62 96 Nasal 2.0L Cannula Intake & Output 12/31 1600 12/31 0800 07/ 0000 12/30 1600 12/30 0800 12/30 0000 Intake Total 120 400 450 120 420 Output Total 550 450 700 600 600 Balance -430 -50 -250 -480 -180 Intake, IV 50 Intake, Oral 120 400 400 120 420 Number 0 Bowel Movements Output, Urine 550 450 700 600 600 Patient 166 lb Weight Weight Chair scale Measurement Method Physical Exam: He is in no distress. He is ambulatory with a walker and physical therapist. HEENT exam normal Chest a few rales in the right base Heart regular rhythm, no murmurs Extremities 1+ edema Current Medications: Current Medications Sig/Lenny Start time Last Medication Dose Route Stop Time Status Admin Amiodarone HCl 200 MG DAILY 12/27 1000 AC 12/31 PO 0931 Benzonatate 100 MG TID 12/27 1600 AC 12/31 PO 0933 Folic Acid 2 MG DAILY 12/22 1343 AC 12/31 PO 0931 Furosemide 40 MG ONCE ONE 12/31 1130 DC 12/31 IV PUSH 12/31 1131 1037 Furosemide 40 MG 1730 12/30 1730 DC 12/30 IV 12/30 1731 1714 Hydroxychloroquine 200 MG BID 12/22 2200 AC 12/31 Sulfate PO 0933 Insulin Aspart 0 TIDAC 12/26 1200 AC 12/30 SC 1714 Levothyroxine Sodium 0.2 MG DAILY AC 12/23 0700 AC 12/31 PO 0615 Metolazone 2.5 MG DAILY 12/29 1000 AC 12/31 PO 0933 Omeprazole 20 MG DAILY AC 12/22 1341 AC 12/31 PO 0615 Polyethylene Glycol 17 GM DAILY 12/31 1007 AC 12/31 PO 1155 Potassium Chloride 20 MEQ BID 12/31 1000 CAN PO Potassium Chloride 40 MEQ ONCE ONE 12/31 0945 DC 12/31 PO 12/31 0946 1014 Prednisone 10 MG DAILY 01/01 1000 AC PO Prednisone 5 MG ONCE ONE 12/31 0945 DC 12/31 PO 12/31 0946 1023 Prednisone 5 MG DAILY 12/22 1341 DC 12/31 PO 0933 Rivaroxaban 15 MG AT BEDTIME 12/23 2200 AC 12/30 PO 2116 Senna/Docusate Sodium 2 TAB DAILY 12/31 1007 AC 12/31 PO 1155 Results Last 48 Hrs of Labs/Mics: Laboratory Tests 12/31/16 0650: Anion Gap 12, Estimated GFR 18 L, BUN/Creatinine Ratio 33.6 H, Phosphorus 5.1 H, Magnesium 2.3 12/30/16 0620: Anion Gap 8, Estimated GFR 17 L, BUN/Creatinine Ratio 30.0 H Assessment/Plan Assessment/Plan The patient appears to be slowly improving. He is maintaining sinus rhythm. His renal function is slightly worse. He is receiving diuretics as needed. I recommend continuing the same treatment. We may need to cut back on diuretics if his renal function continues to deteriorate. Otherwise he is improving. Continue telemetry? Yes
--- NOTE | 2016-12-31 12:45 | PN- Housestaff ---
Subjective Follow-up For: -cardiorenal syndrome -acute on chronic CHF 2/2 dilated CM -a fib s/p cardioversion 12/26 Complaints: no complaints Tele-Events Since Last Visit: NSR 65-83. 1st degree AV block, no overnight events Subjective: Patient was examined bedside. Sitting comfortably in bed drinking water. Complains of some congestion. Review of Systems Constitutional: Reports: no symptoms. Cardiovascular: Reports: no symptoms. Respiratory: Reports: no symptoms. Gastrointestinal: Reports: no symptoms. Genitourinary: Reports: no symptoms. Musculoskeletal: Reports: no symptoms. Skin: Reports: no symptoms. Neurological/Psychological: Reports: no symptoms. Hematologic/Endocrine: Reports: no symptoms. Immunologic/Allergic: Reports: no symptoms. Objective Last 24 Hrs of Vital Signs/I&O Vital Signs Date Time Temp Pulse Resp B/P B/P Pulse O2 O2 Flow FiO2 Mean Ox Delivery Rate 12/31 0931 77 108/56 12/31 0800 Nasal 3.0L Cannula 12/31 0743 97.8 77 18 108/56 96 Nasal Cannula 12/31 0000 Nasal 3.0L Cannula 12/30 2130 97.7 72 18 110/56 97 Nasal 2.0L Cannula 12/30 1730 76 108/60 12/30 1600 Nasal 3.0L Cannula 12/30 1447 97.7 72 20 100/62 96 Nasal 2.0L Cannula Intake & Output 12/31 1600 12/31 0800 07 0000 Intake Total 120 400 Output Total 550 450 Balance -430 -50 Intake, Oral 120 400 Number 0 Bowel Movements Output, Urine 550 450 Physical Exam General Appearance: Alert, Oriented X3, Cooperative, No Acute Distress Skin: No Rashes, No Breakdown, No Significant Lesion Skin Temp/Moisture Exam: Warm/Dry Sepsis Skin Exam (color): Normal for Ethnicity HEENT: Atraumatic, PERRLA, EOMI, Mucous Membr. moist/pink Cardiovascular: Regular Rate, Normal S1, Normal S2, No Murmurs, Gallops, Rubs Lungs: bibasilar crackles Abdomen: Normal Bowel Sounds, Soft, No Tenderness, No Hepatospenomegaly Extremities: No Clubbing, No Edema, Normal Pulses Vascular: Normal Pulses Current Medications: Current Medications Sig/Lenny Start time Last Medication Dose Route Stop Time Status Admin Amiodarone HCl 200 MG DAILY 06/27 1000 AC 12/31 PO 0931 Benzonatate 100 MG TID 12/27 1600 AC 12/31 PO 0933 Folic Acid 2 MG DAILY 12/22 1343 AC 12/31 PO 0931 Furosemide 40 MG ONCE ONE 12/31 1130 DC 12/31 IV PUSH 12/31 1131 1037 Furosemide 40 MG 1730 12/30 1730 DC 12/30 IV 12/30 1731 1714 Hydroxychloroquine 200 MG BID 12/22 2200 AC 12/31 Sulfate PO 0933 Insulin Aspart 0 TIDAC 12/26 1200 AC 12/30 SC 1714 Levothyroxine Sodium 0.2 MG DAILY AC 12/23 0700 AC 12/31 PO 0615 Metolazone 2.5 MG DAILY 12/29 1000 AC 12/31 PO 0933 Omeprazole 20 MG DAILY AC 12/22 1341 AC 12/31 PO 0615 Polyethylene Glycol 17 GM DAILY 12/31 1007 AC 12/31 PO 1155 Potassium Chloride 20 MEQ BID 12/31 1000 CAN PO Potassium Chloride 40 MEQ ONCE ONE 12/31 0945 DC 12/31 PO 12/31 0946 1014 Prednisone 10 MG DAILY 01/01 1000 AC PO Prednisone 5 MG ONCE ONE 12/31 0945 DC 12/31 PO 12/31 0946 1023 Prednisone 5 MG DAILY 12/22 1341 DC 12/31 PO 0933 Rivaroxaban 15 MG AT BEDTIME 12/23 2200 AC 12/30 PO 2116 Senna/Docusate Sodium 2 TAB DAILY 12/31 1007 AC 12/31 PO 1155 Last 24 Hrs of Lab/Thomas Results Last 24 Hrs of Labs/Mics: Laboratory Tests 12/31/16 0650: Anion Gap 12, Estimated GFR 18 L, BUN/Creatinine Ratio 33.6 H, Phosphorus 5.1 H, Magnesium 2.3 Orders Radiology Findings: CXR 12/30: Improved aeration at both lung bases and apparent slight decrease in size of bilateral pleural effusions since the prior study dated 12/28/2016. No other significant change. Assessment/Plan Assessment: Patient is 76-year-old gentleman with past medical history significant for hypertension, CVA, CHF, rheumatoid arthritis, peptic ulcer and GI bleeding, hypothyroidism, diabetes, who presents to the hospital with worsening SOB for one day, dry cough, and bilateral LE edema despite lasix treatment. Was sucessfuly cardioverted on 12/26. Assessment - * Acute on chronic CHF - LVEF 30% --> cardiorenal syndrome * Afib likely 2/2 dilated cardiomyopathy treated with cardioversion * Type 2 Diabetes * Hypothyroidism * Hypertension * Hyperlipidemia * GERD * History of CVA, followed by GI bleed secondary to aspirin * Rheumatoid arthritis on methotrexate and prednisone. * Anemia of chronic disease Plan - Cardio - renal syndrome -Acute Kidney injury secondary to decrease renal perfusion Because of low blood pressure and decreased perfusion to the kidney. BP 108/56 and stable. BUN 111 up from 29, Cr 3.3 up from 1.2 on 12/22. No evidence of ATN. Cardiology and nephro think probably because of the poor ejection fraction patient is having decreased blood pressure and poor renal perfusion. Mg 2.3 Phos 5.1. * Continue Metolazone 2.5 milligrams daily and followed by IV Lasix 40 milligrams IV after one hour. Monitor for possible second dose tonight. * Strict intake output charting * Daily weight measurement * Watch renal function values as BUN and Cr are high. * Watch Mg and Phos * We will follow nephrology recommendation. Atrial fibrillation with controlled ventricular rate * continue amiodarone from 400 milligrams 3 times a day to 200 milligrams daily according to Dr Read to keep in NSR Rhematoid Arthritis * ESR found to be 130 so increase steroid from 5mg to 10mg Acute on chronic CHF * Chest x-ray showed Improved aeration at both lung bases and apparent slight decrease in size of bilateral pleural effusions since the prior study dated . No othersignificant change. * Continue diuresis as stated above * Will follow Cardio recs Hypothyroidism, type 2 diabetes, hyperlipidemia, -continue all home medication DVT prophylaxis-Xarelto Diet-heart healthy diet. Fluid restriction to 1 liter CODE STATUS-full code Problem List: 1. Cardiorenal syndrome Pain Ratin Pain Location: none Pain Goal: Remain pain free Pain Plan: NA Tomorrow's Labs & Rationales: .
--- NOTE | 2016-12-31 12:55 | PN- Nephrology ---
Assessment/Plan Assessment: XI on CKD (stage 3): To suspected acute on chronic cardiorenal syndrome. From a volume standpoint remains fluid overload. We continue cautious diuresis in an effort to keep neck negative. Clinically improving. Creatinine improved from 3.5 to 3.3 today despite intravenous diuretics. Baseline creatinine is 1.1-1.2, with renal ultrasound is negative for hydronephrosis, and a urinalysis without significant proteinuria. Hyponatremia: Stable. Confirm patient's on 1 L per day fluid restriction. I suspect the hyponatremia secondary to congestive heart failure, with hypervolemia. Suggestion: Continue diuretics as you're doing Strict ins and outs daily weights and daily renal labs Please confirm patient's on 1 L per day fluid restriction Subjective Subjective: Remains edematous. Denies shortness of breath at rest. Creatinine improved from 3.5 to 3.3 Making urine Weight down 1 pound Review of Systems: Denies chest pain palpitations or difficulty urinating Denies nausea vomiting or diarrhea Objective Vital Signs and I&Os Vital Signs Date Time Temp Pulse Resp B/P B/P Pulse O2 O2 Flow FiO2 Mean Ox Delivery Rate 12/31 0931 77 108/56 12/31 0800 Nasal 3.0L Cannula 12/31 0743 97.8 77 18 108/56 96 Nasal Cannula 12/31 0000 Nasal 3.0L Cannula 12/30 2130 97.7 72 18 110/56 97 Nasal 2.0L Cannula 12/30 1730 76 108/60 12/30 1600 Nasal 3.0L Cannula 12/30 1447 97.7 72 20 100/62 96 Nasal 2.0L Cannula Intake & Output 12/31 1600 12/31 0400 12/30 1600 12/30 0400 12/29 1600 12/29 0400 Intake Total 120 400 570 420 680 370 Output Total 486 455 0376 600 800 500 Balance -430 -50 -730 -180 -120 -130 Intake, IV 50 10 Intake, Oral 120 400 520 420 680 360 Number 0 Bowel Movements Output, Urine 749 881 7814 600 800 500 Patient 165 lb 166 lb 169 lb Weight Weight Chair scale Chair scale Chair scale Measurement Method Physical Exam: General: NAD, A+O x3. HEENT: NC/AT. Neck: +JVD CV: RRR, no m/r/g Pulm: +fine rales at bases Abd: soft, NT Lower Ext: 2+ edema Upper Ext: no AVFs or AVGs neuro: neg tremor, asterixis : no fofana catheter Current Medications: Current Medications Sig/Lenny Start time Last Medication Dose Route Stop Time Status Admin Amiodarone HCl 200 MG DAILY 12/27 1000 AC 12/31 PO 0931 Benzonatate 100 MG TID 12/27 1600 AC 12/31 PO 0933 Folic Acid 2 MG DAILY 12/22 1343 AC 12/31 PO 0931 Furosemide 40 MG ONCE ONE 12/31 1800 UNVr IV PUSH 12/31 1801 Furosemide 40 MG ONCE ONE 12/31 1130 DC 12/31 IV PUSH 12/31 1131 1037 Furosemide 40 MG 1730 12/30 1730 DC 12/30 IV 12/30 1731 1714 Hydroxychloroquine 200 MG BID 12/22 2200 AC 12/31 Sulfate PO 0933 Insulin Aspart 0 TIDAC 12/26 1200 AC 12/30 SC 1714 Levothyroxine Sodium 0.2 MG DAILY AC 12/23 0700 AC 12/31 PO 0615 Metolazone 2.5 MG DAILY 12/29 1000 AC 12/31 PO 0933 Omeprazole 20 MG DAILY AC 12/22 1341 AC 12/31 PO 0615 Polyethylene Glycol 17 GM DAILY 12/31 1007 AC 12/31 PO 1155 Potassium Chloride 20 MEQ BID 12/31 1000 CAN PO Potassium Chloride 40 MEQ ONCE ONE 12/31 0945 DC 12/31 PO 12/31 0946 1014 Prednisone 10 MG DAILY 01/01 1000 AC PO Prednisone 5 MG ONCE ONE 12/31 0945 DC 12/31 PO 12/31 0946 1023 Prednisone 5 MG DAILY 12/22 1341 DC 12/31 PO 0933 Rivaroxaban 15 MG AT BEDTIME 12/23 2200 AC 12/30 PO 2116 Senna/Docusate Sodium 2 TAB DAILY 12/31 1007 AC 12/31 PO 1155 Results Pertinent Lab Results: Laboratory Tests 12/31 12/30 12/29 0650 0620 0617 Chemistry Sodium (137 - 145 mmol/L) 130 L 129 L 132 L Potassium (3.5 - 5.1 mmol/L) 3.2 L 3.9 4.6 Chloride (98 - 107 mmol/L) 87 L 90 L 92 L Carbon Dioxide (22 - 30 mmol/L) 31 H 31 H 27 Anion Gap (5 - 16) 12 8 13 BUN (9 - 20 mg/dL) 111 *H 105 *H 99 H Creatinine (0.7 - 1.2 mg/dL) 3.3 H 3.5 H 3.3 H Estimated GFR (>60 ml/min) 18 L 17 L 18 L BUN/Creatinine Ratio (7 - 25 %) 33.6 H 30.0 H 30.0 H Phosphorus (2.5 - 4.5 mg/dL) 5.1 H Magnesium (1.6 - 2.3 mg/dL) 2.3 [id number] Pept (<125 pg/mL) 7470 H
--- NOTE | 2016-12-31 15:02 | PN- Att Addend ---
Attending MD Review Statement Attending Statement Attending MD Statement: examined this patient, discuss w/resident/PA/NUMERICAL CONTROL LATHE OPERATOR, agreed w/resident/PA/NUMERICAL CONTROL LATHE OPERATOR, discussed with family, reviewed EMR data (avail), discussed w/ nursing Attending Assessment/Plan: Laboratory Tests 12/31/16 0650: Anion Gap 12, Estimated GFR 18 L, BUN/Creatinine Ratio 33.6 H, Phosphorus 5.1 H, Magnesium 2.3 Vital Signs Date Time Temp Pulse Resp B/P B/P Pulse O2 O2 Flow FiO2 Mean Ox Delivery Rate 12/31 0931 77 108/56 12/31 0800 Nasal 3.0L Cannula 12/31 0743 97.8 77 18 108/56 96 Nasal Cannula 12/31 0000 Nasal 3.0L Cannula 12/30 2130 97.7 72 18 110/56 97 Nasal 2.0L Cannula 12/30 1730 76 108/60 12/30 1600 Nasal 3.0L Cannula XI secondary to acute systolic chf exacerbation. 12/30- Will give another dose of metalozone and 2 dose of lasix 6 hrs apart. 12/31- will give another dose of metalozone and one dose of 40mg iv lasix in am and if bp stays stable will give another dose in the evening. Will f/u on urine output and creatinine. Acute systolic chf exacerbation- will need to monitor strict I & O and will cont with lasix and metalazone for now. Educated pts son about low salt diet and fluid restriction. RA- will increase the prednisone to 10 mg and cont on plaquenil. d/w pt and pt son the care plan.
[2016-12-31 15:30] VITALS: BP 100/58
[2016-12-31 21:43] VITALS: BP 120/64
[2017-01-01 06:00] VITALS: BP 112/60
[2017-01-01 07:40] LABS: ABSOLUTE BASOPHIL COUNT 0 /CUMM (0.0-0.2); ABSOLUTE EOSINOPHIL COUNT 0 /CUMM (0.0-0.7); ABSOLUTE GRANULOCYTE CT 6.6 /CUMM (1.4-6.5); ABSOLUTE LYMPH COUNT 1.3 /CUMM (1.2-3.4); ABSOLUTE MONOCYTE COUNT 0.7 /CUMM (0.10-0.60); BASOPHIL % 0.3 % (0.0-2.0); EOSINOPHIL % 0 % (0-5); GRANULOCYTE % 76.8 % (42.2-75.2); HEMATOCRIT 25.8 % (42-52); MEAN CORPUSCULAR HGB 26.4 PG (27.0-31.0); MEAN CORPUSCULAR HGB CONC 32.3 G/DL (33.0-37.0); MEAN CORPUSCULAR VOLUME 81.6 FL (80.0-94.0); MEAN PLATELET VOLUME 7.7 FL (7.4-10.4); PLATELET COUNT 304 /CUMM (130-400); RBC DISTRIBUTION WIDTH 17.2 % (11.5-14.5); RED BLOOD CELL CT 3.16 /CUMM (4.70-6.10); WHITE BLOOD CELL COUNT 8.6 /CUMM (4.8-10.8)
--- NOTE | 2017-01-01 09:30 | PN- Housestaff ---
Subjective Follow-up For: -cardiorenal syndrome -acute on chronic CHF 2/2 dilated CM -afib s/p cardioversion 12/26 Complaints: no complaints Tele-Events Since Last Visit: Overnight, no events. Was in sinus rhythm with an average rate of 66 with 1st degree block. Subjective: Patient was examined at the bedside. Sitting comfortably in bed, no complaints and in a cheerful mood, eating breakfast. Review of Systems Constitutional: Reports: no symptoms. EENTM: Reports: no symptoms. Cardiovascular: Reports: no symptoms. Denies: chest pain, edema, orthopena, palpitations, peripheral edema, syncope. Respiratory: Reports: no symptoms. Gastrointestinal: Reports: no symptoms. Genitourinary: Reports: no symptoms. Musculoskeletal: Reports: no symptoms. Skin: Reports: no symptoms. Neurological/Psychological: Reports: no symptoms. Hematologic/Endocrine: Reports: no symptoms. Immunologic/Allergic: Reports: no symptoms. Objective Last 24 Hrs of Vital Signs/I&O Vital Signs Date Time Temp Pulse Resp B/P B/P Pulse O2 O2 Flow FiO2 Mean Ox Delivery Rate 01/01 0800 Nasal 1.0L Cannula 01/01 0600 97.7 70 20 112/60 96 Room Air 01/01 0000 Nasal 1.0L Cannula 12/31 2143 97.6 68 18 120/64 98 Nasal Cannula 12/31 1600 98 Nasal 1.0L Cannula 12/31 1530 97.6 72 16 100/58 96 Nasal 1.0L Cannula 12/31 0931 77 108/56 Intake & Output 01/01 1600 / 0800 01/01 0000 Intake Total 60 90 Output Total 650 500 Balance -590 -410 Intake, Oral 60 90 Number 2 Bowel Movements Output, Urine 650 500 Patient 162 lb Weight Weight Standing Scale Measurement Method Physical Exam General Appearance: Alert, Cooperative, No Acute Distress Skin: No Rashes, No Breakdown, No Significant Lesion Skin Temp/Moisture Exam: Warm/Dry Sepsis Skin Exam (color): Normal for Ethnicity HEENT: Atraumatic, EOMI, Mucous Membr. moist/pink Neck: Supple, No JVD Cardiovascular: Regular Rate, Normal S1, Normal S2, No Murmurs, Gallops, Rubs Lungs: mild bibasilar crackles bilaterally Abdomen: Normal Bowel Sounds, Soft, No Tenderness, No Hepatospenomegaly, No Masses Neurological: Normal Speech Extremities: No Cyanosis, No Edema, Normal Pulses, No Tenderness/Swelling Vascular: Normal Pulses Sepsis Peripheral Pulse Location: Radial Current Medications: Current Medications Sig/Lenny Start time Last Medication Dose Route Stop Time Status Admin Amiodarone HCl 200 MG DAILY 12/27 1000 AC 12/31 PO 0931 Benzonatate 100 MG TID 12/27 1600 AC 12/31 PO 2107 Folic Acid 2 MG DAILY 12/22 1343 AC 12/31 PO 0931 Furosemide 40 MG ONCE ONE 12/31 1800 DC 12/31 IV PUSH 12/31 1801 1650 Furosemide 40 MG ONCE ONE 12/31 1130 DC 12/31 IV PUSH 12/31 1131 1037 Hydroxychloroquine 200 MG BID 12/22 220 AC 12/31 Sulfate PO 210 Insulin Aspart 0 TIDAC 12/26 1200 AC 12/31 SC 1704 Levothyroxine Sodium 0.2 MG DAILY AC 12/23 0700 AC 01/01 PO 0553 Metolazone 2.5 MG DAILY 12/29 1000 AC 12/31 PO 0933 Omeprazole 20 MG DAILY AC 12/22 1341 AC 01/01 PO 0553 Polyethylene Glycol 17 GM DAILY 12/31 1007 AC 12/31 PO 1155 Potassium Chloride 20 MEQ BID 12/31 1000 CAN PO Potassium Chloride 40 MEQ ONCE ONE 12/31 0945 DC 12/31 PO 12/31 0946 1014 Prednisone 10 MG DAILY 01/01 1000 AC PO Prednisone 5 MG ONCE ONE 12/31 0945 DC 12/31 PO 12/31 0946 1023 Prednisone 5 MG DAILY 12/22 1341 DC 12/31 PO 0933 Rivaroxaban 15 MG AT BEDTIME 12/23 2200 AC 12/31 PO 2107 Senna 187 MG AT BEDTIME PRN 12/31 1715 AC PO Senna/Docusate Sodium 2 TAB DAILY 12/31 1007 AC 12/31 PO 1155 Last 24 Hrs of Lab/Thomas Results Last 24 Hrs of Labs/Mics: Laboratory Tests 01/01/17 0635: Anion Gap 10, Estimated GFR 19 L, BUN/Creatinine Ratio 33.8 H, CBC w Diff NO MAN DIFF REQ, RBC 3.16 L, MCV 81.6, MCH 26.4 L, RDW 17.2 H, MPV 7.7, Gran % 76.8 H, Lymphocytes % 15.0 L, Monocytes % 7.9, Eosinophils % 0, Basophils % 0.3, Absolute Granulocytes 6.6 H, Absolute Lymphocytes 1.3, Absolute Monocytes 0.7 H, Absolute Eosinophils 0, Absolute Basophils 0, PUBS MCHC 32.3 L, ESR Westergren Pending Assessment/Plan Assessment: Patient is 76-year-old gentleman with past medical history significant for hypertension, CVA, CHF, rheumatoid arthritis, peptic ulcer and GI bleeding, hypothyroidism, diabetes, who presents to the hospital with worsening SOB for one day, dry cough, and bilateral LE edema despite lasix treatment. Was successfully cardioverted on 12/26. Assessment - * Acute on chronic CHF - LVEF 30% --> cardiorenal syndrome * Afib likely 2/2 dilated cardiomyopathy treated with cardioversion * Type 2 Diabetes * Hypothyroidism * Hypertension * Hyperlipidemia * GERD * History of CVA, followed by GI bleed secondary to aspirin * Rheumatoid arthritis on methotrexate and prednisone. * Anemia of chronic disease Plan - Cardio - renal syndrome -Acute Kidney injury secondary to decrease renal perfusion BP stable around 110/60. BUN stable but high at 108, Cr 3.2 up from 1.2 on 12/22 but stable past week. No evidence of ATN. On 12/31, Mg 2.3 Phos 5.1. Today K+ 3.2. Patient given am and pm dose of lasix yesterday with metalazone, blood pressure stable. Fluids restricted to 1L, salt restricted diet. * Continue Metolazone 2.5 milligrams daily followed by IV Lasix 40 milligrams IV after one hour. Monitor blood pressure prior to second dose tonight. * Replete K+ * Strict intake output charting * Daily weight measurement * Watch renal function trends as BUN and Cr are high. * Watch Mg, Phos, K * Adhere to nephrology recommendation for fluid restriction Atrial fibrillation with controlled ventricular rate * continue amiodarone from 400 milligrams 3 times a day to 200 milligrams daily according to Dr Read to keep in NSR Rhematoid Arthritis * ESR found to be 130 so increase steroid from 5mg to 10mg * New ESR taken this morning, watch for results Acute on chronic CHF * Chest x-ray showed Improved aeration at both lung bases and apparent slight decrease in size of bilateral pleural effusions since the prior study dated . No other significant change. * Continue diuresis as stated above Hypothyroidism, type 2 diabetes, hyperlipidemia, -continue all home medication DVT prophylaxis-Xarelto Diet-heart healthy diet. Fluid restriction to 1 liter CODE STATUS-full code Problem List: 1. Full code status 2. Congestive heart failure 3. Cardiorenal syndrome 4. Afib Pain Ratin Pain Location: NA Pain Goal: Remain pain free Pain Plan: NA Tomorrow's Labs & Rationales: Check ESR (for RA, patient is on 10mg prednisone) and BEP for K+, BUN, Cr, Mg, Phos as patient is being diuresed. DVT/Prophylaxis: mechanical (Xarelto), pharmacological Discharge Plan Discharge Disposition: STR/NH Stable for Discharge? Yes
--- NOTE | 2017-01-01 11:44 | PN- Att Addend ---
Attending MD Review Statement Attending Statement Attending MD Statement: examined this patient, discuss w/resident/PA/MEDIA RELATIONS INTERN, agreed w/resident/PA/MEDIA RELATIONS INTERN, reviewed EMR data (avail), discussed w/nursing Attending Assessment/Plan: Laboratory Tests 01/01/17 0635: Anion Gap 10, Estimated GFR 19 L, BUN/Creatinine Ratio 33.8 H, CBC w Diff NO MAN DIFF REQ, RBC 3.16 L, MCV 81.6, MCH 26.4 L, RDW 17.2 H, MPV 7.7, Gran % 76.8 H, Lymphocytes % 15.0 L, Monocytes % 7.9, Eosinophils % 0, Basophils % 0.3, Absolute Granulocytes 6.6 H, Absolute Lymphocytes 1.3, Absolute Monocytes 0.7 H, Absolute Eosinophils 0, Absolute Basophils 0, PUBS MCHC 32.3 L, ESR Westergren 129 H Vital Signs Date Time Temp Pulse Resp B/P B/P Pulse O2 O2 Flow FiO2 Mean Ox Delivery Rate 01/01 1004 70 112/60 01/01 0800 Nasal 1.0L Cannula 01/01 0600 97.7 70 20 112/60 96 Room Air 01/01 0000 Nasal 1.0L Cannula 12/31 2143 97.6 68 18 120/64 98 Nasal Cannula 12/31 1600 98 Nasal 1.0L Cannula 12/31 1530 97.6 72 16 100/58 96 Nasal 1.0L Cannula XI secondary to acute systolic chf exacerbation. 12/30- Will give another dose of metalozone and 2 dose of lasix 6 hrs apart. 12/31- will give another dose of metalozone and one dose of 40mg iv lasix in am and if bp stays stable will give another dose in the evening. 01/01- give dose of metalozone and lasix 40mg iv bid. Will f/u on urine output and creatinine. Acute systolic chf exacerbation- will need to monitor strict I & O and will cont with lasix and metalazone for now. Educated pts son about low salt diet and fluid restriction. RA- increased the prednisone to 10 mg on 12/31 and cont on plaquenil. if creatinine cont to improve, possible dc tomorrow on po lasix and metalozone if ok with nephrology.
[2017-01-01 14:52] VITALS: BP 108/56
--- NOTE | 2017-01-01 15:08 | PN- Cardiology ---
Subjective Subjective: The patient is feeling okay. He has no specific complaints. He continues to diuresis. His renal function has stabilized somewhat. He remains ambulatory with help. Objective Vital Signs and I&Os Vital Signs Date Time Temp Pulse Resp B/P B/P Pulse O2 O2 Flow FiO2 Mean Ox Delivery Rate 01/01 1452 97.7 67 18 108/56 98 Nasal 1.0L Cannula 01/01 1004 70 112/60 01/01 0800 Nasal 1.0L Cannula 01/01 0600 97.7 70 20 112/60 96 Room Air 01/01 0000 Nasal 1.0L Cannula 12/31 2143 97.6 68 18 120/64 98 Nasal Cannula 12/31 1600 98 Nasal 1.0L Cannula 12/31 1530 97.6 72 16 100/58 96 Nasal 1.0L Cannula Intake & Output 01/01 1600 01/01 0800 01/01 0000 12/31 1600 12/31 0800 12/31 0000 Intake Total 614 60 90 734 120 400 Output Total 875 650 500 800 550 450 Balance -261 -590 -410 -66 -430 -50 Intake, IV 14 14 Intake, Oral 600 60 90 720 120 400 Number 2 1 0 Bowel Movements Output, Urine 875 650 500 800 550 450 Patient 162 lb 165 lb Weight Weight Standing Scale Chair scale Measurement Method Physical Exam: He is in no distress HEENT exam is normal Chest is clear Heart reveals regular rhythm and no murmurs Extremities edema is improving Current Medications: Current Medications Sig/Lenny Start time Last Medication Dose Route Stop Time Status Admin Amiodarone HCl 200 MG DAILY 12/27 1000 AC 01/01 PO 1004 Benzonatate 100 MG TID 12/27 1600 AC 01/01 PO 1004 Folic Acid 2 MG DAILY 12/22 1343 AC 01/01 PO 1004 Furosemide 40 MG 1100,1700 01/01 1100 AC 01/01 IV 1003 Furosemide 40 MG ONCE ONE 12/31 1800 DC 12/31 IV PUSH 12/31 1801 1650 Hydroxychloroquine 200 MG BID 12/22 2200 AC 01/01 Sulfate PO 1004 Insulin Aspart 0 TIDAC 12/26 1200 AC 12/31 SC 1704 Levothyroxine Sodium 0.2 MG DAILY AC 12/23 0700 AC 01/01 PO 0553 Metolazone 2.5 MG DAILY 12/29 1000 AC 01/01 PO 1004 Omeprazole 20 MG DAILY AC 12/22 1341 AC 01/01 PO 0553 Polyethylene Glycol 17 GM DAILY 12/31 1007 AC 12/31 PO 1155 Potassium Chloride 40 MEQ ONCE ONE 01/01 1200 DC 01/01 PO 01/01 1201 1236 Potassium Chloride 40 MEQ ONCE ONE 01/01 0915 DC 01/01 PO 01/01 0916 1003 Prednisone 10 MG DAILY 01/01 1000 AC 01/01 PO 1004 Rivaroxaban 15 MG AT BEDTIME 12/23 2200 AC 12/31 PO 2107 Senna 187 MG AT BEDTIME PRN 12/31 1715 AC PO Senna/Docusate Sodium 2 TAB DAILY 12/31 1007 AC 01/01 PO 1004 Results Last 48 Hrs of Labs/Mics: Laboratory Tests 01/01/17 0635: Anion Gap 10, Estimated GFR 19 L, BUN/Creatinine Ratio 33.8 H, CBC w Diff NO MAN DIFF REQ, RBC 3.16 L, MCV 81.6, MCH 26.4 L, RDW 17.2 H, MPV 7.7, Gran % 76.8 H, Lymphocytes % 15.0 L, Monocytes % 7.9, Eosinophils % 0, Basophils % 0.3, Absolute Granulocytes 6.6 H, Absolute Lymphocytes 1.3, Absolute Monocytes 0.7 H, Absolute Eosinophils 0, Absolute Basophils 0, PUBS MCHC 32.3 L, ESR Westergren 129 H 12/31/16 0650: Anion Gap 12, Estimated GFR 18 L, BUN/Creatinine Ratio 33.6 H, Phosphorus 5.1 H, Magnesium 2.3 Assessment/Plan Assessment/Plan The patient appears to be slowly improving. He is maintaining sinus rhythm. His renal function has stabilized. He is receiving diuretics as needed. I recommend continuing the same treatment. It appears as if he can be discharged soon if he continues to improve and his renal function does not get any worse. Continue telemetry? Yes
[2017-01-01 22:22] VITALS: BP 122/66
[2017-01-02 07:20] VITALS: BP 114/70
--- NOTE | 2017-01-02 08:52 | PN- Housestaff ---
ZAY TELLES,JACIEL 01/02/17 0829: Subjective Follow-up For: -cardiorenal syndrome -acute on chronic CHF 2/2 dilated cardiomyopathy -afib s/p successful cardioversion 12/26 Complaints: no complaints Tele-Events Since Last Visit: Overnight no events, sinus rhythm in the 60's with 1st degree block Subjective: Patient was examined at bedside. Sitting comfortably in a chair, no complaints and in a cheerful mood "i feel the best". Eating breakfast (4 eggs). Review of Systems Constitutional: Reports: no symptoms. EENTM: Reports: no symptoms. Cardiovascular: Denies: chest pain, edema, orthopena, palpitations, peripheral edema, syncope. Respiratory: Reports: no symptoms. Gastrointestinal: Denies: abdominal pain, constipation, diarrhea, nausea, vomiting. Musculoskeletal: Reports: no symptoms. Skin: Reports: no symptoms. Hematologic/Endocrine: Reports: no symptoms. Immunologic/Allergic: Reports: no symptoms. Objective Last 24 Hrs of Vital Signs/I&O Vital Signs Date Time Temp Pulse Resp B/P B/P Pulse O2 O2 Flow FiO2 Mean Ox Delivery Rate 01/02 0720 97.9 69 18 114/70 95 Nasal Cannula 01/01 2222 98.1 68 16 122/66 98 Nasal 1.0L Cannula 01/01 2137 98 Nasal 1.0L Cannula 01/01 1452 97.7 67 18 108/56 98 Nasal 1.0L Cannula 01/01 1004 70 112/60 Intake & Output 01/02 1600 / 0800 07 0000 Intake Total 354 Output Total 925 425 Balance -925 -71 Intake, IV 14 Intake, Oral 340 Number 1 Bowel Movements Output, Urine 925 425 Physical Exam General Appearance: Alert, Oriented X3, Cooperative, No Acute Distress Skin: No Rashes, No Breakdown, No Significant Lesion Skin Temp/Moisture Exam: Warm/Dry Sepsis Skin Exam (color): Normal for Ethnicity HEENT: Atraumatic, EOMI, Mucous Membr. moist/pink Cardiovascular: Regular Rate, Normal S1, Normal S2, No Murmurs, Gallops, Rubs Lungs: Clear to Auscultation, Normal Air Movement Abdomen: Normal Bowel Sounds, Soft, No Tenderness, No Masses Neurological: Normal Speech, Normal Tone, Sensation Intact Extremities: No Clubbing, No Cyanosis, No Edema, Normal Pulses, No Tenderness/ Swelling Vascular: Normal Pulses Sepsis Peripheral Pulse Location: Radial Sepsis Peripheral Pulse Exam: Normal Current Medications: Current Medications Sig/Lenny Start time Last Medication Dose Route Stop Time Status Admin Amiodarone HCl 200 MG DAILY 12/27 1000 AC 01/01 PO 1004 Benzonatate 100 MG TID 12/27 1600 AC 01/01 PO 2124 Folic Acid 2 MG DAILY 12/22 1343 AC 01/01 PO 1004 Furosemide 40 MG 1100,1700 01/01 1100 AC 01/01 IV 1618 Hydroxychloroquine 200 MG BID 12/22 2200 AC 01/01 Sulfate PO 2124 Insulin Aspart 0 TIDAC 12/26 1200 AC 01/01 SC 1731 Levothyroxine Sodium 0.2 MG DAILY AC 12/23 0700 AC 01/02 PO 0554 Metolazone 2.5 MG DAILY 12/29 1000 AC 01/01 PO 1004 Omeprazole 20 MG DAILY AC 12/22 1341 AC 01/02 PO 0554 Polyethylene Glycol 17 GM DAILY 12/31 1007 AC 12/31 PO 1155 Potassium Chloride 20 MEQ BID 01/02 1000 AC PO Potassium Chloride 40 MEQ ONCE ONE 01/02 0815 DC PO 01/02 0816 Potassium Chloride 40 MEQ ONCE ONE 01/01 1200 DC 01/01 PO 01/01 1201 1236 Potassium Chloride 40 MEQ ONCE ONE 01/01 0915 DC 01/01 PO 01/01 0916 1003 Prednisone 10 MG DAILY 01/01 1000 AC 01/01 PO 1004 Rivaroxaban 15 MG AT BEDTIME 12/23 2200 AC 01/01 PO 2124 Senna 187 MG AT BEDTIME PRN 12/31 1715 AC PO Senna/Docusate Sodium 2 TAB DAILY 12/31 1007 AC 01/01 PO 1004 Last 24 Hrs of Lab/Thomas Results Last 24 Hrs of Labs/Mics: Laboratory Tests 01/02/17 0637: Anion Gap 9, Estimated GFR 20 L, BUN/Creatinine Ratio 34.3 H Lines/Diet/Fluids Fluids/Infusions: none, fluid restricted to one liter Assessment/Plan Assessment: Patient is 76-year-old gentleman with past medical history significant for hypertension, CVA, CHF, rheumatoid arthritis, peptic ulcer and GI bleeding, hypothyroidism, diabetes, who presents to the hospital with worsening SOB for one day, dry cough, and bilateral LE edema despite lasix treatment. Was successfully cardioverted on 12/26. Assessment - * Acute on chronic CHF - LVEF 30% --> cardiorenal syndrome * Hypokalemia 2/2 diuresis * Afib likely 2/2 dilated cardiomyopathy treated with cardioversion * Type 2 Diabetes * Hypothyroidism * Hypertension * Hyperlipidemia * GERD * History of CVA, followed by GI bleed secondary to aspirin * Rheumatoid arthritis on methotrexate and prednisone. * Anemia of chronic disease Plan - Cardio - renal syndrome -Acute Kidney injury secondary to decrease renal perfusion BP stable around 115/60. BUN stable but high at 103, Cr max 3.5 up from 1.2 on admission 12/22 but decreasing, now at 3.1. No evidence of ATN. On 12/31, Mg 2.3 Phos 5.1. Patient given am and pm dose of lasix yesterday with metalazone po daily, blood pressure stable. Currently negative fluid balance of 925ml. Fluids restricted to 1L, salt restricted diet. * Continue Metolazone 2.5 milligrams daily followed by IV Lasix 40 milligrams IV after one hour. Monitor blood pressure prior to second dose tonight. * Strict intake output charting * Daily weight measurement * Watch renal function trends as BUN and Cr are high but trending down * Adhere to nephrology recommendation for fluid restriction * Follow today's nephrology note and speak with son regarding implementation of instructions on discharge and any new medication instructions. Hypokalemia 2/2 diuresis * K+ 3.2 yesterday (01/01). Given 40 mEq of K-Dur x2. New K+ is 3.1. Give another 20 mEq bid and repeat BEP to assess. Atrial fibrillation with controlled ventricular rate * continue amiodarone from 400 milligrams 3 times a day to 200 milligrams daily according to Dr Read to keep in NSR Rhematoid Arthritis * ESR found to be 130 so increase steroid from 5mg to 10mg * New ESR 129. Instruct him to followup with his print press operator Acute on chronic CHF * Chest x-ray showed Improved aeration at both lung bases and apparent slight decrease in size of bilateral pleural effusions since the prior study dated . No other significant change. * Continue diuresis as stated above Hypothyroidism, type 2 diabetes, hyperlipidemia, -continue all home medication DVT prophylaxis-Xarelto Diet-heart healthy diet. Fluid restriction to 1 liter CODE STATUS-full code Problem List: 1. Cardiorenal syndrome 2. CHF (congestive heart failure) 3. Rheumatoid arthritis 4. T2DM (type 2 diabetes mellitus) 5. Afib 6. Hypokalemia Pain Ratin Pain Location: NA Pain Goal: Remain pain free Pain Plan: NA Tomorrow's Labs & Rationales: BEP to assess K, BUN, Cr DVT/Prophylaxis: pharmacological (xarelto) Discharge Plan Discharge Disposition: [facility] OBRIEN MD 01/02/17 2206: Attending MD Review Statement Attending Statement Attending MD Statement: examined this patient, discuss w/resident/PA/COMMISSARY AGENT, agreed w/resident/PA/COMMISSARY AGENT, discussed with family, reviewed EMR data (avail), discussed with case mgmt, reviewed images, amended to note Attending Assessment/Plan: The patient was seen and discussed with the house staff. Appreciate nephrology and cardiology input. pH is high and diuretic therapy as per nephrology. Replete potassium.
--- NOTE | 2017-01-02 10:29 | PN- Nephrology ---
Assessment/Plan Assessment: 1. XI: ? ATN post hypotensive episode ? cardiorenal syndrome 2. Volume overload; due to CHF - improving 3. Met Alk: presumed w hi bicarb - likely due to diuretics & hypokalemia. Needs ABG to r/o chronic resp acid w renal compensation. If met alk: favor holding metolazone & Lasix today & starting trial acetazolamide IV 4. Hypokalemia: needs supplement po; recheck Mg Suggestion: 1. ABG 2. if pH hi --> hold metolazone & Lasix; start acetazolamide 500 mg IV q12 x 2 doses 3. increase KCL 40 meq po q 6 x 2 doses then recheck K 4. check Mg 5. d/c PPI Subjective Subjective: Denies SOB Nonoliguric Objective Vital Signs and I&Os Vital Signs Date Time Temp Pulse Resp B/P B/P Pulse O2 O2 Flow FiO2 Mean Ox Delivery Rate 01/02 0911 69 114/70 01/02 0800 Nasal 1.0L Cannula 01/02 0720 97.9 69 18 114/70 95 Nasal Cannula 01/01 2222 98.1 68 16 122/66 98 Nasal 1.0L Cannula 01/01 2137 98 Nasal 1.0L Cannula 01/01 1452 97.7 67 18 108/56 98 Nasal 1.0L Cannula Intake & Output 01/02 1600 01/02 0400 01/01 1600 01/01 0400 12/31 1600 12/31 0400 Intake Total 354 674 90 854 400 Output Total 444 503 7360 500 1350 450 Balance -925 -71 -851 -410 -496 -50 Intake, IV 14 14 14 Intake, Oral 340 660 90 840 400 Number 1 2 1 0 Bowel Movements Output, Urine 599 016 3884 500 1350 450 Patient 162 lb 165 lb Weight Weight Standing Scale Chair scale Measurement Method Physical Exam General Appearance: well developed/nourished, no apparent distress, alert Head: atraumatic, normal appearance Ears, Nose, Throat: normal ENT inspection Neck: normal inspection Respiratory: no respiratory distress, quiet respiration, crackles (bases bilat) Cardiovascular: regular rate/rhythm, friction rub (none) Abdomen: soft, non-tender Extremities: pedal edema Neurologic/Psychiatric: awake, alert Skin: intact, normal color, warm/dry Current Medications: Current Medications Sig/Lenny Start time Last Medication Dose Route Stop Time Status Admin Amiodarone HCl 200 MG DAILY 12/27 1000 AC 01/02 PO 0911 Benzonatate 100 MG TID 12/27 1600 AC 01/02 PO 0911 Folic Acid 2 MG DAILY 12/22 1343 AC 01/02 PO 0911 Furosemide 40 MG 1100,1700 01/01 1100 AC 01/01 IV 1618 Hydroxychloroquine 200 MG BID 12/22 2200 AC 01/02 Sulfate PO 0911 Insulin Aspart 0 TIDAC 12/26 1200 AC 01/01 SC 1731 Levothyroxine Sodium 0.2 MG DAILY AC 12/23 0700 AC 01/02 PO 0554 Metolazone 2.5 MG DAILY 12/29 1000 AC 01/02 PO 0911 Omeprazole 20 MG DAILY AC 12/22 1341 AC 01/02 PO 0554 Polyethylene Glycol 17 GM DAILY 12/31 1007 AC 12/31 PO 1155 Potassium Chloride 20 MEQ BID 01/02 1000 AC PO Potassium Chloride 40 MEQ ONCE ONE 01/02 0815 DC 01/02 PO 01/02 0816 0912 Potassium Chloride 40 MEQ ONCE ONE 01/01 1200 DC 01/01 PO 01/01 1201 1236 Prednisone 10 MG DAILY 01/01 1000 AC 01/02 PO 0911 Rivaroxaban 15 MG AT BEDTIME 12/23 2200 AC 01/01 PO 2124 Senna 187 MG AT BEDTIME PRN 12/31 1715 AC PO Senna/Docusate Sodium 2 TAB DAILY 12/31 1007 AC 01/02 PO 0911 Results Pertinent Lab Results: Laboratory Tests 01/02 01/01 12/31 0637 0635 0650 Chemistry Sodium (137 - 145 mmol/L) 131 L 131 L 130 L Potassium (3.5 - 5.1 mmol/L) 3.1 L 3.2 L 3.2 L Chloride (98 - 107 mmol/L) 86 L 87 L 87 L Carbon Dioxide (22 - 30 mmol/L) 36 H 34 H 31 H Anion Gap (5 - 16) 9 10 12 BUN (9 - 20 mg/dL) 103 *H 108 *H 111 *H Creatinine (0.7 - 1.2 mg/dL) 3.0 H 3.2 H 3.3 H Estimated GFR (>60 ml/min) 20 L 19 L 18 L BUN/Creatinine Ratio (7 - 25 %) 34.3 H 33.8 H 33.6 H Phosphorus (2.5 - 4.5 mg/dL) 5.1 H Magnesium (1.6 - 2.3 mg/dL) 2.3 Hematology CBC w Diff NO MAN DIFF REQ WBC (4.8 - 10.8 /CUMM) 8.6 RBC (4.70 - 6.10 /CUMM) 3.16 L Hgb (14.0 - 18.0 G/DL) 8.3 L Hct (42 - 52 %) 25.8 L MCV (80.0 - 94.0 FL) 81.6 MCH (27.0 - 31.0 PG) 26.4 L RDW (11.5 - 14.5 %) 17.2 H Plt Count (130 - 400 /CUMM) 304 MPV (7.4 - 10.4 FL) 7.7 Gran % (42.2 - 75.2 %) 76.8 H Lymphocytes % (20.5 - 51.1 %) 15.0 L Monocytes % (1.7 - 9.3 %) 7.9 Eosinophils % (0 - 5 %) 0 Basophils % (0.0 - 2.0 %) 0.3 Absolute Granulocytes (1.4 - 6.5 /CUMM) 6.6 H Absolute Lymphocytes (1.2 - 3.4 /CUMM) 1.3 Absolute Monocytes (0.10 - 0.60 /CUMM) 0.7 H Absolute Eosinophils (0.0 - 0.7 /CUMM) 0 Absolute Basophils (0.0 - 0.2 /CUMM) 0 PUBS MCHC (33.0 - 37.0 G/DL) 32.3 L ESR Westergren (0 - 10 MM) 129 H Imaging/Other Studies: CXR 12/30/16: Improved aeration at both lung bases and apparent slight decrease in size of bilateral pleural effusions since the prior study dated 12/28/2016. No other significant change.
--- NOTE | 2017-01-02 10:41 | PN- Cardiology ---
Subjective Subjective: * Breathing is improved and patient was able to ambulate without oxygen and without shortness of breath. No chest discomfort. * sinus rhythm with first degree AV block * creatinine improved to 3.0 with low potassium of 3.1 * INR is 3.08 * H/H continues to decline Objective Vital Signs and I&Os Vital Signs Date Time Temp Pulse Resp B/P B/P Pulse O2 O2 Flow FiO2 Mean Ox Delivery Rate 01/02 0911 69 114/70 01/02 0800 Nasal 1.0L Cannula 01/02 0720 97.9 69 18 114/70 95 Nasal Cannula 01/01 2222 98.1 68 16 122/66 98 Nasal 1.0L Cannula 01/01 2137 98 Nasal 1.0L Cannula 01/01 1452 97.7 67 18 108/56 98 Nasal 1.0L Cannula Intake & Output 01/02 1600 01/02 0800 01/02 0000 01/01 1600 01/01 0800 01/01 0000 Intake Total 354 614 60 90 Output Total 925 425 875 650 500 Balance -925 -71 -261 -590 -410 Intake, IV 14 14 Intake, Oral 340 600 60 90 Number 1 2 Bowel Movements Output, Urine 925 425 875 650 500 Patient 162 lb Weight Weight Standing Scale Measurement Method Physical Exam: General: WD/WN male in NAD; alert and oriented x 3 Neck: no JVD Heart: RRR w/o murmur Lungs: clear bilaterally Extremities: 1+ bilateral leg edema Assessment/Plan Assessment/Plan * Change Lasix to 60mg PO BID. Replete potassium. Give 40meq PO x two doses by two hours. Thereafter KDUR can be continued at 20meq daily. * Follow H/H and guaiac all stools since the patient has a decreasing HCT on Xarelto. Continue telemetry? Yes
--- NOTE | 2017-01-02 13:16 | NUR ---
SPEECH THERAPY: ATTEMPTED TO SEE PT FOR DIET TOLERANCE AT MEAL. PT AT BEDSIDE W/ 3 FAMILY MEMBERS PRESENT. PER FAMILY REPORT, PT JUST FINISHED LUNCH WITH NO DIFFICULTIES/COUGHING. BOTH PT AND SON STATING PT UTILIZING SAFE SWALLOWING STRATEGIES AT MEAL INDEPENDENTLY (EG. USING EXTRA DRY SWALLOW WITH BOTH SOLIDS/LIQUIDS, NO MIXING/ALTERNATING CONSISTENCIES). ST PROVIDED PT AND FAMILY W/ RE-EDUCATION RE: THE AFOREMENTIONED SAFE SWALLOWING STRATEGIES. REC PT CONTINUE W/ CURRENT DIET AND ST CONTINUE TO FOLLOW FOR DIET TOLERANCE AT MEAL. D/W PT, FAMILY, AND RN.
[2017-01-02 14:59] VITALS: BP 130/78
[2017-01-02 23:02] VITALS: BP 122/64
[2017-01-03 06:47] VITALS: BP 118/60
[2017-01-03 08:05] LABS: ABSOLUTE BASOPHIL COUNT 0 /CUMM (0.0-0.2); ABSOLUTE EOSINOPHIL COUNT 0 /CUMM (0.0-0.7); ABSOLUTE GRANULOCYTE CT 8.1 /CUMM (1.4-6.5); ABSOLUTE LYMPH COUNT 1.5 /CUMM (1.2-3.4); ABSOLUTE MONOCYTE COUNT 0.7 /CUMM (0.10-0.60); BASOPHIL % 0.1 % (0.0-2.0); EOSINOPHIL % 0 % (0-5); GRANULOCYTE % 78.5 % (42.2-75.2); HEMATOCRIT 25.4 % (42-52); MEAN CORPUSCULAR HGB 26.6 PG (27.0-31.0); MEAN CORPUSCULAR HGB CONC 32.7 G/DL (33.0-37.0); MEAN CORPUSCULAR VOLUME 81.5 FL (80.0-94.0); MEAN PLATELET VOLUME 7.8 FL (7.4-10.4); PLATELET COUNT 318 /CUMM (130-400); RBC DISTRIBUTION WIDTH 17.6 % (11.5-14.5); RED BLOOD CELL CT 3.12 /CUMM (4.70-6.10); WHITE BLOOD CELL COUNT 10.3 /CUMM (4.8-10.8)
--- NOTE | 2017-01-03 12:05 | PN- Housestaff ---
See Addendum Subjective Follow-up For: -cardiorenal syndrome -? etiology for ATN -acute on chronic CHF 2/2 dilated cardiomyopathy -afib s/p successful cardioversion 12/26 Complaints: no complaints Tele-Events Since Last Visit: NSR 1st degree heart block 63-70 IN .32 Subjective: Patient was examined at bedside. Sitting comfortably in a chair, no complaints and in a cheerful mood. Review of Systems Constitutional: Reports: no symptoms. EENTM: Reports: no symptoms. Cardiovascular: Reports: no symptoms. Respiratory: Reports: no symptoms. Gastrointestinal: Reports: no symptoms. Genitourinary: Reports: no symptoms. Musculoskeletal: Reports: no symptoms. Skin: Reports: no symptoms. Neurological/Psychological: Reports: no symptoms. Objective Last 24 Hrs of Vital Signs/I&O Vital Signs Date Time Temp Pulse Resp B/P B/P Pulse O2 O2 Flow FiO2 Mean Ox Delivery Rate 01/03 1050 68 108/50 01/03 0647 98.7 70 20 118/60 95 Room Air 01/02 2302 98.9 69 16 122/64 96 Room Air 01/02 1459 97.8 74 18 130/78 92 Nasal Cannula Intake & Output 01/03 1600 / 0800 07/ 0000 Intake Total 120 240 Output Total 400 1050 Balance -280 -810 Intake, Oral 120 240 Output, Urine 400 1050 Physical Exam General Appearance: Alert, Oriented X3, Cooperative, No Acute Distress Skin: No Rashes, No Breakdown, No Significant Lesion Skin Temp/Moisture Exam: Warm/Dry Sepsis Skin Exam (color): Normal for Ethnicity HEENT: Atraumatic, PERRLA, EOMI, Mucous Membr. moist/pink Neck: Supple, No JVD Cardiovascular: Regular Rate, Normal S1, Normal S2, No Murmurs, Gallops, Rubs Lungs: Clear to Auscultation, Normal Air Movement Abdomen: Normal Bowel Sounds, Soft, No Tenderness, No Hepatospenomegaly, No Masses Neurological: Normal Speech Extremities: No Clubbing, No Cyanosis, No Edema, Normal Pulses, No Tenderness/ Swelling Vascular: Normal Pulses, Pulses Symmetrical Sepsis Peripheral Pulse Location: Radial Sepsis Peripheral Pulse Exam: Normal Current Medications: Current Medications Sig/Lenny Start time Last Medication Dose Route Stop Time Status Admin Acetazolamide 500 MG BID 01/02 1120 DC 01/02 Sodium Chloride 50 ML IV 01/029 2239 Amiodarone HCl 200 MG DAILY 12/27 1000 AC 01/03 PO 1050 Benzonatate 100 MG TID 12/27 1600 AC 01/03 PO 1047 Folic Acid 2 MG DAILY 12/22 1343 AC 01/03 PO 1046 Heparin Sodium 25,000 UNIT Q24H 01/03 2200 AC (Porcine) IV Sodium Chloride 500 ML Hydroxychloroquine 200 MG BID 12/22 2200 AC 01/03 Sulfate PO 1046 Insulin Aspart 0 TIDAC 12/26 1200 AC 01/01 SC 1731 Levothyroxine Sodium 0.2 MG DAILY AC 12/23 0700 AC 01/03 PO 0622 Polyethylene Glycol 17 GM DAILY 12/31 1007 AC 12/31 PO 1155 Potassium Chloride 40 MEQ 1300 01/02 1300 DC PO 01/02 1301 Potassium Chloride 20 MEQ BID 01/02 1000 AC 01/03 PO 1047 Prednisone 10 MG DAILY 01/01 1000 AC 01/03 PO 1046 Rivaroxaban 15 MG AT BEDTIME 12/23 2200 DC 01/02 PO 2116 Senna 187 MG AT BEDTIME PRN 12/31 1715 AC PO Senna/Docusate Sodium 2 TAB DAILY 12/31 1007 AC 01/03 PO 1046 Warfarin Sodium 2.5 MG AT BEDTIME 01/03 2200 UNVr PO Last 24 Hrs of Lab/Thomas Results Last 24 Hrs of Labs/Mics: Laboratory Tests 01/03/17 0656: Anion Gap 10, Estimated GFR 18 L, BUN/Creatinine Ratio 30.0 H, CBC w Diff NO MAN DIFF REQ, RBC 3.12 L, MCV 81.5, MCH 26.6 L, RDW 17.6 H, MPV 7.8, Gran % 78.5 H, Lymphocytes % 14.5 L, Monocytes % 6.9, Eosinophils % 0, Basophils % 0.1, Absolute Granulocytes 8.1 H, Absolute Lymphocytes 1.5, Absolute Monocytes 0.7 H, Absolute Eosinophils 0, Absolute Basophils 0, PUBS MCHC 32.7 L 01/02/17 1510: Anion Gap 9, Estimated GFR 19 L, BUN/Creatinine Ratio 30.3 H Orders Stool Guaiac Testing: ordered 01/03 for hb trending down Lines/Diet/Fluids Fluids/Infusions: fluid restriction 1L Lines: peripheral lines Assessment/Plan Assessment: Patient is 76-year-old gentleman with past medical history significant for hypertension, CVA, CHF, rheumatoid arthritis, peptic ulcer and GI bleeding, hypothyroidism, diabetes, who presents to the hospital with worsening SOB for one day, dry cough, and bilateral LE edema despite lasix treatment. Was successfully cardioverted on 12/26. Assessment - * Acute on chronic CHF - LVEF 30% --> cardiorenal syndrome: clinically improved * XI- Cr. 1.2 on admission, now stable at around 3.4, not decreasing despite clinical improvement. ? of ATN due to drugs (xaralto, hydroxychloroquin) or cardiorenal syndrome. abg 7.52 hco3 32 and co2 39. metalozone and lasix stopped and acetazolamide x2 given. crcl calculated 18.49. bps stable, i/o - 280. * low hb * Hypokalemia 2/2 diuresis * Afib likely 2/2 dilated cardiomyopathy treated with cardioversion * Type 2 Diabetes * Hypothyroidism * Hypertension * Hyperlipidemia * GERD * History of CVA, followed by GI bleed secondary to aspirin * Rheumatoid arthritis on methotrexate and prednisone. * Anemia of chronic disease Plan - Acute Kidney injury secondary to decrease renal perfusion: XI- Cr. 1.2 on admission, now stable at around 3.4, not decreasing despite clinical improvement. ? of ATN due to drugs (xaralto, hydroxychloroquin) or cardiorenal syndrome. abg 7.52 hco3 32 and co2 39. metalozone and lasix stopped and acetazolamide x2 given. crcl calculated 18.49. bps stable, i/o -280. 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 watch INR. * consider kidney biopsy down the line if etiology is not discovered - follow nephrology recommendations * hold ppi * Strict intake output charting * Daily weight measurement Hypokalemia 2/2 diuresis * K+ 3.7 was 4.2 yesterday up from 3.1. Give another kdur. Low hb of 8.3 * guaic Atrial fibrillation with controlled ventricular rate * continue amiodarone from 400 milligrams 3 times a day to 200 milligrams daily according to Dr Read to keep in NSR. pt on xaralto switch to coumadin and heparin bridge. watch INR. Rhematoid Arthritis * ESR found to be 130 so increase steroid from 5mg to 10mg * New ESR 129. Instruct him to followup with his food technologist Acute on chronic CHF * Chest x-ray showed Improved aeration at both lung bases and apparent slight decrease in size of bilateral pleural effusions since the prior study dated . No other significant change. * Continue diuresis as stated above Hypothyroidism, type 2 diabetes, hyperlipidemia, -continue all home medication DVT prophylaxis-Xarelto Diet-heart healthy diet. Fluid restriction to 1 liter CODE STATUS-full code Problem List: 1. Cardiorenal syndrome 2. Hypokalemia 3. CHF (congestive heart failure) 4. XI (acute kidney injury) 5. Full code status 6. T2DM (type 2 diabetes mellitus) 7. Afib Pain Ratin Pain Location: na Pain Goal: Remain pain free Pain Plan: na Tomorrow's Labs & Rationales: watch BEP, urine eosinophils, cbc, INR DVT/Prophylaxis: pharmacological
--- NOTE | 2017-01-03 15:16 | NUR ---
15:10 PM NOTIFIED BY [facility] PT REPORTED HITTING HIS HEAD ON THE SIDERAIL OF THE BED WHILE LYING DOWN. PT DENIES PAIN/DIZZINESS. DR JOHN NOTIFIED. PT REFUSED ICE PACK. SMALL RED AREA NOTED ON LEFT FOREHEAD. SKIN INTACT. WILL CONTINUE TO MONITOR.
[2017-01-03 15:41] VITALS: BP 108/56
[2017-01-03 22:00] VITALS: BP 108/60
--- NOTE | 2017-01-04 02:16 | Event Note ---
Event Note Event Note: Treatment plan was to stop Xarelto and heparin bridge to coumadin for atrial fibrillation anticoagulation in the setting of renal failure. Hemoglobin and hematocrit have been trending down gradually raising suspicion for GI bleed. Rectal exam revealed heme positive stool, heparin gtt was paused and care was discussed with Dr. Smith. Plan to continue heparin infusion bridge to coumadin and monitor CBC closely. Will sign out to AM team.
[2017-01-04 07:28] VITALS: BP 106/62
[2017-01-04 08:27] LABS: ABSOLUTE BASOPHIL COUNT 0 /CUMM (0.0-0.2); ABSOLUTE EOSINOPHIL COUNT 0 /CUMM (0.0-0.7); ABSOLUTE GRANULOCYTE CT 8.7 /CUMM (1.4-6.5); ABSOLUTE LYMPH COUNT 1.7 /CUMM (1.2-3.4); ABSOLUTE MONOCYTE COUNT 0.6 /CUMM (0.10-0.60); BASOPHIL % 0.2 % (0.0-2.0); EOSINOPHIL % 0 % (0-5); GRANULOCYTE % 79.1 % (42.2-75.2); MEAN CORPUSCULAR HGB 26.5 PG (27.0-31.0); MEAN CORPUSCULAR HGB CONC 32.7 G/DL (33.0-37.0); MEAN CORPUSCULAR VOLUME 81.3 FL (80.0-94.0); MEAN PLATELET VOLUME 7.9 FL (7.4-10.4); PLATELET COUNT 304 /CUMM (130-400); RED BLOOD CELL CT 2.96 /CUMM (4.70-6.10)
[2017-01-04 08:52] LABS: PT 22.4 SEC (9.4-12.5)
[2017-01-04 08:55] LABS: PTT > 120 SEC (25-37)
--- NOTE | 2017-01-04 10:06 | PN- Housestaff ---
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 Sitting comfortably in bed, no complaints and states that he feels great. Review of Systems Constitutional: Reports: no symptoms. EENTM: Reports: no symptoms. Cardiovascular: Reports: no symptoms. Respiratory: Denies: cough, hemoptysis, short of breath. Gastrointestinal: Reports: no symptoms. Genitourinary: Reports: no symptoms. Objective Last 24 Hrs of Vital Signs/I&O Vital Signs Date Time Temp Pulse Resp B/P B/P Pulse O2 O2 Flow FiO2 Mean Ox Delivery Rate 01/04 0910 77 106/62 / 0800 Room Air 01/04 0728 97.8 77 20 106/62 96 Room Air 01/03 2200 97.9 74 20 108/60 97 Room Air 01/03 1541 98.4 72 20 108/56 95 Room Air Intake & Output 01/04 1600 05 0800 01/04 0000 Intake Total 498 808 750 Output Total 825 375 500 Balance -327 433 250 Intake, IV 18 208 Intake, Oral 480 600 750 Output, Urine 825 375 500 Physical Exam General Appearance: Alert, Oriented X3, Cooperative, No Acute Distress Skin: No Rashes, No Breakdown, No Significant Lesion Skin Temp/Moisture Exam: Warm/Dry Sepsis Skin Exam (color): Normal for Ethnicity HEENT: Atraumatic, PERRLA, EOMI, Mucous Membr. moist/pink Neck: Supple, No thryomegaly Cardiovascular: Regular Rate, Normal S1, Normal S2, No Murmurs, Gallops, Rubs Lungs: Clear to Auscultation, Normal Air Movement Abdomen: Normal Bowel Sounds, Soft, No Tenderness Neurological: Normal Speech, Normal Tone, Sensation Intact Extremities: EDEMA 2+ PITTING BILATERALLY Vascular: Normal Pulses, Pulses Symmetrical Sepsis Peripheral Pulse Location: Dorsalis Pedis Sepsis Peripheral Pulse Exam: Normal Rectal guaic positive. positive history of rectal bleeding in past - chronic bleeder. Current Medications: Current Medications Sig/Lenny Start time Last Medication Dose Route Stop Time Status Admin Amiodarone HCl 200 MG DAILY 12/27 1000 AC 01/04 PO 0910 Benzonatate 100 MG TID 12/27 1600 AC 01/04 PO 0910 Folic Acid 2 MG DAILY 12/22 1343 AC 01/04 PO 0910 Furosemide 80 MG ONCE ONE 01/04 1030 DC 01/04 IV PUSH 01/04 1031 1053 Heparin Sodium 25,000 UNIT Q24H 01/03 2200 AC 01/03 (Porcine) IV 2244 Sodium Chloride 500 ML Hydroxychloroquine 200 MG BID 12/22 2200 AC 01/04 Sulfate PO 0910 Insulin Aspart 0 TIDAC 12/26 1200 AC 01/01 SC 1731 Levothyroxine Sodium 0.2 MG DAILY AC 12/23 0700 AC 01/04 PO 0638 Polyethylene Glycol 17 GM DAILY 12/31 1007 AC 12/31 PO 1155 Potassium Chloride 40 MEQ ONCE ONE 01/04 1030 DC 01/04 PO 01/04 1031 1352 Potassium Chloride 40 MEQ ONCE ONE 01/04 1030 DC 01/04 PO 01/04 1031 1053 Potassium Chloride 20 MEQ BID 01/02 1000 AC 01/04 PO 0910 Prednisone 10 MG DAILY 01/01 1000 AC 01/04 PO 0910 Senna 187 MG AT BEDTIME PRN 12/31 1715 AC PO Senna/Docusate Sodium 2 TAB DAILY 12/31 1007 AC 01/04 PO 0910 Warfarin Sodium 2.5 MG AT BEDTIME 01/03 2200 DC 01/03 PO 01/03 2201 2241 Last 24 Hrs of Lab/Thomas Results Last 24 Hrs of Labs/Mics: Laboratory Tests 01/04/17 0628: Anion Gap 11, Estimated GFR 18 L, BUN/Creatinine Ratio 32.4 H, PT 22.4 H, INR 2.15 H, APTT > 120 *H, CBC w Diff NO MAN DIFF REQ, RBC 2.96 L, MCV 81.3, MCH 26.5 L, RDW 17.0 H, MPV 7.9, Gran % 79.1 H, Lymphocytes % 15.1 L, Monocytes % 5.6, Eosinophils % 0, Basophils % 0.2, Absolute Granulocytes 8.7 H, Absolute Lymphocytes 1.7, Absolute Monocytes 0.6, Absolute Eosinophils 0, Absolute Basophils 0, PUBS MCHC 32.7 L Orders Stool Guaiac Testing: positive Lines/Diet/Fluids Fluids/Infusions: fluid restricted to 1L Assessment/Plan Assessment: Patient is 76-year-old gentleman with past medical history significant for hypertension, CVA, CHF, rheumatoid arthritis, peptic ulcer and GI bleeding, hypothyroidism, diabetes, who presents to the hospital with worsening SOB for one day, dry cough, and bilateral LE edema despite lasix treatment. Was successfully cardioverted on 12/26. Assessment - * Acute on chronic CHF - LVEF 30% --> cardiorenal syndrome: clinically improved in terms of breathing but still with 2+ pitting edema bilaterally. abg 7.52 hco3 32 and co2 39 on 01/02. metalozone and lasix stopped and acetazolamide x2 given. * XI- Cr. 1.2 on admission, now stable at around 3.4, not decreasing despite clinical improvement. ? of ATN due to drugs (xaralto?) or cardiorenal syndrome. crcl calculated 18.49. bps stable, i/o +106. * low hb * Hypokalemia 2/2 diuresis * Afib likely 2/2 dilated cardiomyopathy treated with cardioversion * Type 2 Diabetes * Hypothyroidism * Hypertension * Hyperlipidemia * GERD * History of CVA, followed by GI bleed secondary to aspirin * Rheumatoid arthritis on methotrexate and prednisone. * Anemia of chronic disease Plan - Acute Kidney injury secondary to decrease renal perfusion: XI- Cr. 1.2 on admission, now stable at around 3.4, not decreasing despite clinical improvement. ? of ATN due to drugs (xaralto, hydroxychloroquin) or cardiorenal syndrome. abg 7.52 hco3 32 and co2 39. metalozone and lasix stopped and acetazolamide x2 given. crcl calculated 18.49. bps stable, i/o -280. * PER NEPHROLOGY NOTE RESTART LASIX 80MG PO DAILY, DO NOT GIVE MOISES OR ARB DUE TO HIGH CR, PT SHOULD BE SEEN AT [facility] AFTER DISCHARGE * send urine eosinophils * we have switched xaralto to warfarin with heparin bridge. xaralto should clear the system by tomorrow and at that time we can watch INR as a good indicator of anticoagulation on warfarin. * consider kidney biopsy down the line if etiology is not discovered - follow nephrology recommendations. watch for urine eosinophils result. * hold ppi * Strict intake output charting * Daily weight measurement Hypokalemia 2/2 diuresis * K+ 3.4 was 4.2 two days continue to give kdur Low hb of 8.3 * GUAIC WAS POSITIVE BUT NOTE SHOWS HISTORY OF CHRONIC BLEED. CONTINUE HEPARIN BRIDGE WITH COUMADIN Atrial fibrillation with controlled ventricular rate * continue amiodarone from 400 milligrams 3 times a day to 200 milligrams daily according to Dr Read to keep in NSR. pt on xaralto switch to coumadin and heparin bridge. watch INR as indicator of anticoagulation starting 01/05 Rhematoid Arthritis * ESR found to be 130 so increase steroid from 5mg to 10mg * New ESR 129. 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 No other significant change. Hypothyroidism, type 2 diabetes, hyperlipidemia, -continue all home medication DVT prophylaxis-Xarelto Diet-heart healthy diet. Fluid restriction to 1 liter CODE STATUS-full code Problem List: 1. Cardiorenal syndrome 2. Hypokalemia 3. CHF (congestive heart failure) 4. Diabetes 5. XI (acute kidney injury) 6. Rheumatoid arthritis Pain Ratin Pain Location: NA Pain Goal: Remain pain free Pain Plan: NA Tomorrow's Labs & Rationales: BEP FOR K+ AND CR DVT/Prophylaxis: pharmacological
--- NOTE | 2017-01-04 10:27 | PN- Nephrology ---
Assessment/Plan Assessment: 1. XI: ? ATN post hypotensive episode ? cardiorenal syndrome; no improvement - w/o renal replacement indication 2. Volume overload: due to CHF - clinically improved w less edema per family 3. Met Alk: improved 4. Hypokalemia: needs additional supplement po Suggestion: 1. restart Lasix 80 mg po qday 2. KCl po 3. no ACEI or ARB If otherwise ready for d/c --> can have repeat outpt labs via CHF clinic Subjective Subjective: Denies SOB or orthopnea No uremic sx Nonoliguric On heparin drip as being converted warfarin anticoagulation Objective Vital Signs and I&Os Vital Signs Date Time Temp Pulse Resp B/P B/P Pulse O2 O2 Flow FiO2 Mean Ox Delivery Rate 01/04 0910 77 106/62 01/04 0800 Room Air 01/04 0728 97.8 77 20 106/62 96 Room Air / 2200 97.9 74 20 108/60 97 Room Air 01/03 1541 98.4 72 20 108/56 95 Room Air 01/03 1050 68 108/50 Intake & Output 01/04 1600 01/04 0400 01/03 1600 01/03 0400 01/02 1600 01/02 0400 Intake Total 808 750 600 240 379 354 Output Total 375 666 385 0166 1475 425 Balance 433 250 0 -810 -1096 -71 Intake, IV 208 79 14 Intake, Oral 600 750 600 240 300 340 Number 1 1 Bowel Movements Output, Urine 375 226 131 0391 1475 425 Physical Exam General Appearance: well developed/nourished, no apparent distress, alert Head: atraumatic, normal appearance Ears, Nose, Throat: normal ENT inspection Respiratory: crackles (bases) Cardiovascular: regular rate/rhythm, friction rub (none) Abdomen: soft, non-tender, no organomegaly Extremities: swelling Neurologic/Psychiatric: awake, alert Current Medications: Current Medications Sig/Lenny Start time Last Medication Dose Route Stop Time Status Admin Amiodarone HCl 200 MG DAILY 12/27 1000 AC 01/04 PO 0910 Benzonatate 100 MG TID 12/27 1600 AC 01/04 PO 0910 Folic Acid 2 MG DAILY 12/22 1343 AC 01/04 PO 0910 Heparin Sodium 25,000 UNIT Q24H 01/03 2200 AC 01/03 (Porcine) IV 2244 Sodium Chloride 500 ML Hydroxychloroquine 200 MG BID 12/22 220 AC 01/04 Sulfate PO 0910 Insulin Aspart 0 TIDAC 12/26 1200 AC 01/01 SC 1731 Levothyroxine Sodium 0.2 MG DAILY AC 12/23 0700 AC 01/04 PO 0638 Polyethylene Glycol 17 GM DAILY 12/31 1007 AC 12/31 PO 1155 Potassium Chloride 20 MEQ BID 01/02 1000 AC 01/04 PO 0910 Prednisone 10 MG DAILY 01/01 1000 AC 01/04 PO 0910 Rivaroxaban 15 MG AT BEDTIME 12/23 2200 DC 01/02 PO 2116 Senna 187 MG AT BEDTIME PRN 12/31 1715 AC PO Senna/Docusate Sodium 2 TAB DAILY 12/31 1007 AC 01/04 PO 0910 Warfarin Sodium 2.5 MG AT BEDTIME 01/03 2200 DC 01/03 PO 01/03 220 2241 Results Pertinent Lab Results: Laboratory Tests 01/04 01/03 0628 0656 Chemistry Sodium (137 - 145 mmol/L) 134 L 134 L Potassium (3.5 - 5.1 mmol/L) 3.4 L 3.7 Chloride (98 - 107 mmol/L) 91 L 89 L Carbon Dioxide (22 - 30 mmol/L) 32 H 36 H Anion Gap (5 - 16) 11 10 BUN (9 - 20 mg/dL) 110 *H 102 *H Creatinine (0.7 - 1.2 mg/dL) 3.4 H 3.4 H Estimated GFR (>60 ml/min) 18 L 18 L BUN/Creatinine Ratio (7 - 25 %) 32.4 H 30.0 H Coagulation PT (9.4 - 12.5 SEC) 22.4 H INR (0.90 - 1.17) 2.15 H APTT (25 - 37 SEC) > 120 *H Hematology CBC w Diff NO MAN DIFF REQ NO MAN DIFF REQ WBC (4.8 - 10.8 /CUMM) 11.0 H 10.3 RBC (4.70 - 6.10 /CUMM) 2.96 L 3.12 L Hgb (14.0 - 18.0 G/DL) 7.9 L 8.3 L Hct (42 - 52 %) 24.0 L 25.4 L MCV (80.0 - 94.0 FL) 81.3 81.5 MCH (27.0 - 31.0 PG) 26.5 L 26.6 L RDW (11.5 - 14.5 %) 17.0 H 17.6 H Plt Count (130 - 400 /CUMM) 304 318 MPV (7.4 - 10.4 FL) 7.9 7.8 Gran % (42.2 - 75.2 %) 79.1 H 78.5 H Lymphocytes % (20.5 - 51.1 %) 15.1 L 14.5 L Monocytes % (1.7 - 9.3 %) 5.6 6.9 Eosinophils % (0 - 5 %) 0 0 Basophils % (0.0 - 2.0 %) 0.2 0.1 Absolute Granulocytes (1.4 - 6.5 /CUMM) 8.7 H 8.1 H Absolute Lymphocytes (1.2 - 3.4 /CUMM) 1.7 1.5 Absolute Monocytes (0.10 - 0.60 /CUMM) 0.6 0.7 H Absolute Eosinophils (0.0 - 0.7 /CUMM) 0 0 Absolute Basophils (0.0 - 0.2 /CUMM) 0 0 PUBS MCHC (33.0 - 37.0 G/DL) 32.7 L 32.7 L 01/02 07/ 07/03 1510 1100 0637 Blood Gas pH (7.35 - 7.45 PH) 7.52 H pCO2 (35 - 45 TORR) 39 pO2 (80 - 100 TORR) 63 L HCO3 (21 - 28 MEQ/L) 32 H ABG O2 Sat (Measured) (>96.0 %) 90.0 L Carboxyhemoglobin (1.5 - 5.0 %) 1.1 L O2 Concentration % RA O2 Delivery Method RA Chemistry Sodium (137 - 145 mmol/L) 131 L 131 L Potassium (3.5 - 5.1 mmol/L) 4.2 3.1 L Chloride (98 - 107 mmol/L) 87 L 86 L Carbon Dioxide (22 - 30 mmol/L) 35 H 36 H Anion Gap (5 - 16) 9 9 BUN (9 - 20 mg/dL) 97 H 103 *H Creatinine (0.7 - 1.2 mg/dL) 3.2 H 3.0 H Estimated GFR (>60 ml/min) 19 L 20 L BUN/Creatinine Ratio (7 - 25 %) 30.3 H 34.3 H Magnesium (1.6 - 2.3 mg/dL) 2.1 Miscellaneous Phlebotomy Draw Site RIGHT RADIAL
[2017-01-04 15:40] VITALS: BP 110/68
[2017-01-04 17:40] LABS: PTT > 120 SEC (25-37)
--- NOTE | 2017-01-04 18:31 | PN- Cardiology ---
Subjective Subjective: Breathing improved. Maintaining SR w/ 1st degree AV block. Objective Vital Signs and I&Os Vital Signs Date Time Temp Pulse Resp B/P B/P Pulse O2 O2 Flow FiO2 Mean Ox Delivery Rate 01/04 1540 97.9 72 18 110/68 97 Room Air / 0910 77 106/62 / 0800 Room Air / 0728 97.8 77 20 106/62 96 Room Air / 2200 97.9 74 20 108/60 97 Room Air Intake & Output 01/04 0801/04 0000 01/03 1600 01/03 0801/03 0000 Intake Total 498 808 750 480 120 240 Output Total 825 375 500 070 401 2121 Balance -327 433 250 280 -280 -810 Intake, IV 18 208 Intake, Oral 480 600 750 480 120 240 Number 1 Bowel Movements Output, Urine 825 375 500 081 462 7258 Patient 156 lb Weight Weight Chair scale Measurement Method Physical Exam: Well-developed, well-nourished elderly male in no acute distress with nasal oxygen in place. Vital signs: See above. Neck: No JVD. Lungs: Bibasilar crackles. Heart: S1, S2 with grade 1/6 systolic murmur. Extremities: 2+ bilateral lower extremity edema. Current Medications: Current Medications Sig/Lenny Start time Last Medication Dose Route Stop Time Status Admin Amiodarone HCl 200 MG DAILY 12/27 1000 AC 01/04 PO 0910 Benzonatate 100 MG TID 12/27 1600 AC 01/04 PO 1557 Folic Acid 2 MG DAILY 12/22 1343 AC 01/04 PO 0910 Furosemide 80 MG DAILY 01/05 1000 AC PO Furosemide 80 MG ONCE ONE 01/04 1030 DC 01/04 IV PUSH 01/04 1031 1053 Heparin Sodium 25,000 UNIT Q24H 01/03 2200 AC 01/03 (Porcine) IV 2244 Sodium Chloride 500 ML Hydroxychloroquine 200 MG BID 12/22 2200 AC 01/04 Sulfate PO 0910 Insulin Aspart 0 TIDAC 12/26 1200 AC 01/04 SC 1720 Levothyroxine Sodium 0.2 MG DAILY AC 12/23 0700 AC 01/04 PO 0638 Polyethylene Glycol 17 GM DAILY 12/31 1007 AC 12/31 PO 1155 Potassium Chloride 40 MEQ ONCE ONE 01/04 1030 DC 01/04 PO 01/04 1031 1352 Potassium Chloride 40 MEQ ONCE ONE 01/04 1030 DC 01/04 PO 01/04 1031 1053 Potassium Chloride 20 MEQ BID 01/02 1000 AC 01/04 PO 0910 Prednisone 10 MG DAILY 01/01 1000 AC 01/04 PO 0910 Senna 187 MG AT BEDTIME PRN 12/31 1715 AC PO Senna/Docusate Sodium 2 TAB DAILY 12/31 1007 AC 01/04 PO 0910 Warfarin Sodium 2.5 MG COUMADIN 1700 ONE 01/04 1700 DC 01/04 PO 01/04 1701 1721 Warfarin Sodium 2.5 MG AT BEDTIME 01/03 2200 DC 01/03 PO 01/03 2201 2241 Results Last 48 Hrs of Labs/Mics: Laboratory Tests 01/04/17 1600: APTT > 120 *H 01/04/17 0628: Anion Gap 11, Estimated GFR 18 L, BUN/Creatinine Ratio 32.4 H, PT 22.4 H, INR 2.15 H, APTT > 120 *H, CBC w Diff NO MAN DIFF REQ, RBC 2.96 L, MCV 81.3, MCH 26.5 L, RDW 17.0 H, MPV 7.9, Gran % 79.1 H, Lymphocytes % 15.1 L, Monocytes % 5.6, Eosinophils % 0, Basophils % 0.2, Absolute Granulocytes 8.7 H, Absolute Lymphocytes 1.7, Absolute Monocytes 0.6, Absolute Eosinophils 0, Absolute Basophils 0, PUBS MCHC 32.7 L 01/03/17 0656: Anion Gap 10, Estimated GFR 18 L, BUN/Creatinine Ratio 30.0 H, CBC w Diff NO MAN DIFF REQ, RBC 3.12 L, MCV 81.5, MCH 26.6 L, RDW 17.6 H, MPV 7.8, Gran % 78.5 H, Lymphocytes % 14.5 L, Monocytes % 6.9, Eosinophils % 0, Basophils % 0.1, Absolute Granulocytes 8.1 H, Absolute Lymphocytes 1.5, Absolute Monocytes 0.7 H, Absolute Eosinophils 0, Absolute Basophils 0, PUBS MCHC 32.7 L Assessment/Plan Assessment/Plan [id number] w/ hx stroke at age 45 years complicated by GI bleed secondary to ASA Rx, HTN, HLD, hypothyroidism, GERD, RA s/p MTX Rx, prostate ca s/p hormone and radiation therapy, previous hemolytic anemia, pericardial tamponade s/p urgent pericardial window, HF [HFpEF], recurrent aspiration, recently discovered AF w/ MVR for which anticoagulation was initiated and w/ a significant deterioration in his LVEF echocardiography (EF 30%) performed for worsening complaints SOB () who presented to the ED on 12/22/2016 w/ c/o worsening SOB, dry cough, bilateral LE edema, orthopnea, etc., despite his enrollment in the heart wellness clinic where he has received IV furosemide on a 2x weekly basis (60 mg) , along with daily by mouth furosemide (20mg 2 daily). Suspect his left ventricular decompensation may be on the basis of atrial fibrillation with more rapid than previously documented ventricular response rates that may have led to a tachycardia mediated cardiomyopathy. He was anticoagulated with Xarelto for over a month, was loaded with amiodarone, and underwent successful electrical cardioversion on Monday (12/26/2016) with one 200 J shock while under TIVA (total intravenous anesthesia) and appears to be maintaining sinus rhythm thus far. The Xarelto was discontinued given his renal issues and he is now on warfarin with IV heparin bridging. He has suspected cardiorenal syndrome w/ physical findings of volume overload and CXR evidence of pulmonary edema with unchanged creatinine. Recommendations: * Continue on telemetry. * Strict inputs/outputs and daily weights. * Continue on amiodarone maintenance. * Continue furosemide 80 mg daily, after replete potassium, but suspect he will slip back into heart failure. * Given his kidney issues was placed on warfarin with IV heparin bridging and had the factor Xa inhibitor discontinued. * Repeat CXR in a.m. * Follow-up H/H and check all stools for occult blood. * Note increased WBC. * Maintain hemoglobin above 8.0 g/dl. * DVT prophylaxis being addressed by anticoagulation for his atrial fibrillation. Continue telemetry? Yes
[2017-01-04 23:19] VITALS: BP 112/62
[2017-01-05 00:37] LABS: PTT > 120 SEC (25-37)
[2017-01-05 06:58] VITALS: BP 110/60
[2017-01-05 07:59] LABS: ABSOLUTE BASOPHIL COUNT 0 /CUMM (0.0-0.2); ABSOLUTE EOSINOPHIL COUNT 0 /CUMM (0.0-0.7); ABSOLUTE GRANULOCYTE CT 7.7 /CUMM (1.4-6.5); ABSOLUTE MONOCYTE COUNT 0.7 /CUMM (0.10-0.60); BASOPHIL % 0.2 % (0.0-2.0); EOSINOPHIL % 0 % (0-5); MEAN CORPUSCULAR HGB 26.5 PG (27.0-31.0); MEAN CORPUSCULAR HGB CONC 32.4 G/DL (33.0-37.0); MEAN CORPUSCULAR VOLUME 81.7 FL (80.0-94.0); MEAN PLATELET VOLUME 7.8 FL (7.4-10.4); PLATELET COUNT 304 /CUMM (130-400); RBC DISTRIBUTION WIDTH 17.1 % (11.5-14.5); RED BLOOD CELL CT 2.94 /CUMM (4.70-6.10); WHITE BLOOD CELL COUNT 10.4 /CUMM (4.8-10.8)
[2017-01-05 08:48] LABS: PT 19.4 SEC (9.4-12.5)
--- NOTE | 2017-01-05 08:51 | PN- Housestaff ---
See Addendum Subjective Follow-up For: -CARDIORENAL SYNDROME VS ATN -CHF 2/2 DILATED CARDIOMYOPATHY -AFIB S/P SUCCESSFUL CARDIOVERSION 12/26 -ANEMIA 2/2 CHRONIC GI BLEED Complaints: no complaints Tele-Events Since Last Visit: SR 60-66 WITH 1ST DEGREE AV BLOCK [place] INTEVAL .28-.32 NO EVENTS OVERNIGHT Subjective: Patient examined bedside, sitting comfortably with no complaints, waiting for breakfast. States that he feels the same as yesterday "good". Review of Systems Constitutional: Reports: no symptoms. EENTM: Reports: no symptoms. Cardiovascular: Reports: no symptoms. Respiratory: Reports: no symptoms. Gastrointestinal: Reports: no symptoms. Genitourinary: Reports: no symptoms. Musculoskeletal: Reports: no symptoms. Skin: Reports: no symptoms. Neurological/Psychological: Reports: no symptoms. Hematologic/Endocrine: Reports: no symptoms. Immunologic/Allergic: Reports: no symptoms. Objective Last 24 Hrs of Vital Signs/I&O Vital Signs Date Time Temp Pulse Resp B/P B/P Pulse O2 O2 Flow FiO2 Mean Ox Delivery Rate 01/05 0658 97.5 61 20 110/60 96 Room Air / 0000 Room Air 01/04 2319 97.4 78 16 112/62 97 /05 1540 97.9 72 18 110/68 97 Room Air / 0910 77 106/62 Intake & Output / 1600 07/06 0800 07/06 0000 Intake Total 120 280 Output Total 750 650 Balance -630 -370 Intake, IV 160 Intake, Oral 120 120 Number 0 Bowel Movements Output, Urine 750 650 Physical Exam General Appearance: Alert, Oriented X3, Cooperative, No Acute Distress Skin: No Rashes, No Breakdown, No Significant Lesion Skin Temp/Moisture Exam: Warm/Dry Sepsis Skin Exam (color): Normal for Ethnicity HEENT: Atraumatic, PERRLA, EOMI, Mucous Membr. moist/pink Cardiovascular: Regular Rate, Normal S1, Normal S2, No Murmurs, Gallops, Rubs Lungs: bibasalar inspiratory crackles Abdomen: Normal Bowel Sounds, Soft, No Tenderness Neurological: Normal Speech Extremities: No Clubbing, No Cyanosis, No Tenderness/Swelling, bipedal 2+ edema to knees Vascular: Pulses Symmetrical Sepsis Peripheral Pulse Location: Radial Sepsis Peripheral Pulse Exam: Bounding Rectal guaic positive 01/03 Current Medications: Current Medications Sig/Lenny Start time Last Medication Dose Route Stop Time Status Admin Amiodarone HCl 200 MG DAILY 12/27 1000 AC 01/04 PO 0910 Benzonatate 100 MG TID 12/27 1600 AC 01/04 PO 2125 Folic Acid 2 MG DAILY 12/22 1343 AC 01/04 PO 0910 Furosemide 80 MG DAILY 01/05 1000 AC PO Furosemide 80 MG .STK-MED ONE 01/04 1051 DC IV 01/04 1052 Furosemide 80 MG ONCE ONE 01/04 1030 DC 01/04 IV PUSH 01/04 1031 1053 Heparin Sodium 25,000 UNIT Q24H 01/03 2200 AC 01/04 (Porcine) IV 2126 Sodium Chloride 500 ML Hydroxychloroquine 200 MG BID 12/22 2200 AC 01/04 Sulfate PO 2125 Insulin Aspart 0 TIDAC 12/26 1200 AC 01/04 SC 1720 Levothyroxine Sodium 0.2 MG DAILY AC 12/23 0700 AC 01/05 PO 0600 Polyethylene Glycol 17 GM DAILY 12/31 1007 AC 12/31 PO 1155 Potassium Chloride 40 MEQ ONCE ONE 01/04 1030 DC 01/04 PO 01/04 1031 1352 Potassium Chloride 40 MEQ ONCE ONE 01/04 1030 DC 01/04 PO 01/04 1031 1053 Potassium Chloride 20 MEQ BID 01/02 1000 AC 01/04 PO 2125 Prednisone 10 MG DAILY 01/01 1000 AC 01/04 PO 0910 Senna 187 MG AT BEDTIME PRN 12/31 1715 AC PO Senna/Docusate Sodium 2 TAB DAILY 12/31 1007 AC 01/04 PO 0910 Warfarin Sodium 2.5 MG COUMADIN 1700 ONE 01/04 1700 DC 01/04 PO 01/04 1701 1721 Last 24 Hrs of Lab/Thomas Results Last 24 Hrs of Labs/Mics: Laboratory Tests 01/05/17 07: APTT Cancelled 01/05/17 0718: Sodium Pending, Potassium Pending, Chloride Pending, Carbon Dioxide Pending, Anion Gap Pending, BUN Pending, Creatinine Pending, BUN/Creatinine Ratio Pending , PT Pending, INR Pending, APTT Pending, CBC w Diff NO MAN DIFF REQ, RBC 2.94 L , MCV 81.7, MCH 26.5 L, RDW 17.1 H, MPV 7.8, Gran % 74.0, Lymphocytes % 19.1 L, Monocytes % 6.7, Eosinophils % 0, Basophils % 0.2, Absolute Granulocytes 7.7 H, Absolute Lymphocytes 2.0, Absolute Monocytes 0.7 H, Absolute Eosinophils 0, Absolute Basophils 0, PUBS MCHC 32.4 L 01/04/17 2345: APTT > 120 *H 01/04/17 1600: APTT > 120 *H Orders Stool Guaiac Testing: positive 01/03 Lines/Diet/Fluids Fluids/Infusions: none Lines: peripheral lines Assessment/Plan Assessment: Patient is 76-year-old gentleman with past medical history significant for hypertension, CVA, CHF, rheumatoid arthritis, peptic ulcer and GI bleeding, hypothyroidism, diabetes, who presents to the hospital with worsening SOB for one day, dry cough, and bilateral LE edema despite lasix treatment. Was successfully cardioverted on 12/26. Assessment - * Acute on chronic CHF - LVEF 30% --> cardiorenal syndrome: clinically improved in terms of breathing but still with bibasalar inspiratory crackles and with 2+ pitting edema bilaterally. abg 7.52 hco3 32 and co2 39 on 01/02. metalozone and lasix stopped and acetazolamide x2 given. Currently on 80 mg lasix IV. * XI- Cr. 1.2 on admission, today's result pending, not decreasing despite clinical improvement. ? of ATN due to drugs (xaralto?) or cardiorenal syndrome. crcl calculated 18.49. bps stable, i/o -630. * Anemic to 7.8 01/05 morning. 7.9 ON 01/04. * Hypokalemia 2/2 diuresis * Afib likely 2/2 dilated cardiomyopathy treated with cardioversion * Type 2 Diabetes * Hypothyroidism * Hypertension * Hyperlipidemia * GERD * History of CVA, followed by GI bleed secondary to aspirin * Rheumatoid arthritis on methotrexate and prednisone. * Anemia of chronic disease Plan - Acute Kidney injury secondary to decrease renal perfusion: XI- Cr. 1.2 on admission, todays labs pending, has not decreased despite clinical improvement. ? of ATN due to drugs (xaralto, hydroxychloroquin) or cardiorenal syndrome. abg 7.52 hco3 32 and co2 39. metalozone and lasix stopped and acetazolamide x2 given. Currently on 80 mg lasix IV. * PER NEPHROLOGY NOTE DO NOT GIVE MOISES OR ARB DUE TO HIGH CR, PT SHOULD BE SEEN AT [facility] AFTER DISCHARGE * send urine eosinophils * we have switched xaralto to warfarin with heparin bridge. xaralto should clear the system by tomorrow and at that time we can watch INR as a good indicator of anticoagulation on warfarin. * consider kidney biopsy down the line if etiology is not discovered - follow nephrology recommendations. watch for urine eosinophils result. CANCELLED * hold ppi * Strict intake output charting * Daily weight measurement Hypokalemia 2/2 diuresis * K+ pending for today was 4.2 two days ago : continue to give kdur Low HB of 7.8 * GUAIC WAS POSITIVE BUT NOTE SHOWS HISTORY OF CHRONIC BLEED. CONTINUE HEPARIN BRIDGE WITH COUMADIN AND TRANSFUSE ONE UNIT PRBC Atrial fibrillation with controlled ventricular rate * continue amiodarone maintenance 200 milligrams daily according to Dr Read to keep in NSR. pt on xaralto switch to coumadin and heparin bridge. watch INR as indicator of anticoagulation starting today. 1.86 INR this morning - INCREASE COUMADIN DOSE TO 3MG FOR TODAY. Rhematoid Arthritis * ESR found to be 130 so increase steroid from 5mg to 10mg * New ESR 129. 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 * Chest x-ray showed Improved aeration at both lung bases and apparent slight decrease in size of bilateral pleural effusions since the prior study. Dated . No other significant change. CXR PENDING FOR TODAY. Hypothyroidism, type 2 diabetes, hyperlipidemia, -continue all home medication DVT prophylaxis-COUMADIN WITH HEPARIN BRIDGE CURRENTLY Diet-heart healthy diet. Fluid restriction to 1 liter CODE STATUS-full code Problem List: 1. Hypokalemia 2. Cardiorenal syndrome 3. CHF (congestive heart failure) 4. Afib 5. Diabetes 6. XI (acute kidney injury) 7. Full code status 8. Hyperlipidemia 9. Hypothyroidism 10. GI BLEED Pain Ratin Pain Location: NA Pain Goal: Remain pain free Pain Plan: NA Tomorrow's Labs & Rationales: BEP, CBC, INR DVT/Prophylaxis: pharmacological
[2017-01-05 09:07] LABS: PTT < 120 SEC (25-37)
--- NOTE | 2017-01-05 09:07 | PN- Nephrology ---
Assessment/Plan Assessment: 1. XI: ? ATN post hypotensive episode ? cardiorenal syndrome; w/o renal replacement indication 2. Volume overload: due to CHF - improved w less edema 3. Met Alk: improved 4. Hypokalemia: on supplement - recheck Suggestion: 1. continue Lasix 80 mg po qday 2. recheck chemisytries today 3. no ACEI or ARB but no objection to MR antagonist --> spironolactone @ 25 mg qday Subjective Subjective: Denies SOB No uremic sx Objective Vital Signs and I&Os Vital Signs Date Time Temp Pulse Resp B/P B/P Pulse O2 O2 Flow FiO2 Mean Ox Delivery Rate 01/05 0852 118/70 01/05 0658 97.5 61 20 110/60 96 Room Air 01/05 0000 Room Air 01/04 2319 97.4 78 16 112/62 97 / 1540 97.9 72 18 110/68 97 Room Air 01/04 0910 77 106/62 Intake & Output 01/05 1600 01/05 0400 01/04 1600 01/04 0400 01/03 1600 01/03 0400 Intake Total 342 260 8255 750 600 240 Output Total 262 998 9852 497 140 6967 Balance -630 -370 106 250 0 -810 Intake, IV 160 226 Intake, Oral 587 381 4988 750 600 240 Number 0 1 Bowel Movements Output, Urine 417 161 5597 983 097 3214 Patient 156 lb Weight Weight Chair scale Measurement Method Physical Exam General Appearance: no apparent distress, alert, awake Head: atraumatic, normal appearance Ears, Nose, Throat: normal ENT inspection Respiratory: crackles (R base) Cardiovascular: regular rate/rhythm, friction rub (none) Abdomen: soft, non-tender, no organomegaly Extremities: swelling (less - 1+) Neurologic/Psychiatric: awake, alert Current Medications: Current Medications Sig/Lenny Start time Last Medication Dose Route Stop Time Status Admin Amiodarone HCl 200 MG DAILY 12/27 1000 AC 01/05 PO 0852 Benzonatate 100 MG TID 12/27 1600 AC 01/05 PO 0856 Folic Acid 2 MG DAILY 12/22 1343 AC 01/05 PO 0852 Furosemide 80 MG DAILY 01/05 1000 AC 01/05 PO 0852 Furosemide 80 MG .STK-MED ONE 01/04 1051 DC IV 01/04 1052 Furosemide 80 MG ONCE ONE 01/04 1030 DC 01/04 IV PUSH 01/04 1031 1053 Heparin Sodium 25,000 UNIT Q24H 01/03 220 AC 01/04 (Porcine) IV 2126 Sodium Chloride 500 ML Hydroxychloroquine 200 MG BID 12/22 2199 AC 01/05 Sulfate PO 0852 Insulin Aspart 0 TIDAC 12/26 1200 AC 01/04 SC 1720 Levothyroxine Sodium 0.2 MG DAILY AC 12/23 0700 AC 01/05 PO 0600 Polyethylene Glycol 17 GM DAILY 12/31 1007 AC 12/31 PO 1155 Potassium Chloride 40 MEQ ONCE ONE 01/04 1030 DC 01/04 PO 01/04 1031 1352 Potassium Chloride 40 MEQ ONCE ONE 01/04 1030 DC 01/04 PO 01/04 1031 1053 Potassium Chloride 20 MEQ BID 01/02 1000 AC 01/05 PO 0853 Prednisone 10 MG DAILY 01/01 1000 AC 01/05 PO 0853 Senna 187 MG AT BEDTIME PRN 12/31 1715 AC PO Senna/Docusate Sodium 2 TAB DAILY 12/31 1007 AC 01/05 PO 0852 Warfarin Sodium 2.5 MG COUMADIN 1700 ONE 01/04 1700 DC 01/04 PO 01/04 1701 1721 Results Pertinent Lab Results: Laboratory Tests 01/05 01/05 01/04 0720 0718 2345 Chemistry Sodium Pending Potassium Pending Chloride Pending Carbon Dioxide Pending Anion Gap Pending BUN Pending Creatinine Pending BUN/Creatinine Ratio Pending Coagulation PT Pending INR Pending APTT (25 - 37 SEC) Cancelled Pending > 120 *H Hematology CBC w Diff NO MAN DIFF REQ WBC (4.8 - 10.8 /CUMM) 10.4 RBC (4.70 - 6.10 /CUMM) 2.94 L Hgb (14.0 - 18.0 G/DL) 7.8 L Hct (42 - 52 %) 24.0 L MCV (80.0 - 94.0 FL) 81.7 MCH (27.0 - 31.0 PG) 26.5 L RDW (11.5 - 14.5 %) 17.1 H Plt Count (130 - 400 /CUMM) 304 MPV (7.4 - 10.4 FL) 7.8 Gran % (42.2 - 75.2 %) 74.0 Lymphocytes % (20.5 - 51.1 %) 19.1 L Monocytes % (1.7 - 9.3 %) 6.7 Eosinophils % (0 - 5 %) 0 Basophils % (0.0 - 2.0 %) 0.2 Absolute Granulocytes (1.4 - 6.5 /CUMM) 7.7 H Absolute Lymphocytes (1.2 - 3.4 /CUMM) 2.0 Absolute Monocytes (0.10 - 0.60 /CUMM) 0.7 H Absolute Eosinophils (0.0 - 0.7 /CUMM) 0 Absolute Basophils (0.0 - 0.2 /CUMM) 0 PUBS MCHC (33.0 - 37.0 G/DL) 32.4 L 01/04 01/04 01/03 1600 0628 1351 Chemistry Sodium (137 - 145 mmol/L) 134 L Potassium (3.5 - 5.1 mmol/L) 3.4 L Chloride (98 - 107 mmol/L) 91 L Carbon Dioxide (22 - 30 mmol/L) 32 H Anion Gap (5 - 16) 11 BUN (9 - 20 mg/dL) 110 *H Creatinine (0.7 - 1.2 mg/dL) 3.4 H Estimated GFR (>60 ml/min) 18 L BUN/Creatinine Ratio (7 - 25 %) 32.4 H Coagulation PT (9.4 - 12.5 SEC) 22.4 H INR (0.90 - 1.17) 2.15 H APTT (25 - 37 SEC) > 120 *H > 120 *H Hematology CBC w Diff NO MAN DIFF REQ WBC (4.8 - 10.8 /CUMM) 11.0 H RBC (4.70 - 6.10 /CUMM) 2.96 L Hgb (14.0 - 18.0 G/DL) 7.9 L Hct (42 - 52 %) 24.0 L MCV (80.0 - 94.0 FL) 81.3 MCH (27.0 - 31.0 PG) 26.5 L RDW (11.5 - 14.5 %) 17.0 H Plt Count (130 - 400 /CUMM) 304 MPV (7.4 - 10.4 FL) 7.9 Gran % (42.2 - 75.2 %) 79.1 H Lymphocytes % (20.5 - 51.1 %) 15.1 L Monocytes % (1.7 - 9.3 %) 5.6 Eosinophils % (0 - 5 %) 0 Basophils % (0.0 - 2.0 %) 0.2 Absolute Granulocytes (1.4 - 6.5 /CUMM) 8.7 H Absolute Lymphocytes (1.2 - 3.4 /CUMM) 1.7 Absolute Monocytes (0.10 - 0.60 /CUMM) 0.6 Absolute Eosinophils (0.0 - 0.7 /CUMM) 0 Absolute Basophils (0.0 - 0.2 /CUMM) 0 PUBS MCHC (33.0 - 37.0 G/DL) 32.7 L Urines Ur Eosinophil Smear Cancelled 01/03 01/02 0656 1510 Chemistry Sodium (137 - 145 mmol/L) 134 L 131 L Potassium (3.5 - 5.1 mmol/L) 3.7 4.2 Chloride (98 - 107 mmol/L) 89 L 87 L Carbon Dioxide (22 - 30 mmol/L) 36 H 35 H Anion Gap (5 - 16) 10 9 BUN (9 - 20 mg/dL) 102 *H 97 H Creatinine (0.7 - 1.2 mg/dL) 3.4 H 3.2 H Estimated GFR (>60 ml/min) 18 L 19 L BUN/Creatinine Ratio (7 - 25 %) 30.0 H 30.3 H Hematology CBC w Diff NO MAN DIFF REQ WBC (4.8 - 10.8 /CUMM) 10.3 RBC (4.70 - 6.10 /CUMM) 3.12 L Hgb (14.0 - 18.0 G/DL) 8.3 L Hct (42 - 52 %) 25.4 L MCV (80.0 - 94.0 FL) 81.5 MCH (27.0 - 31.0 PG) 26.6 L RDW (11.5 - 14.5 %) 17.6 H Plt Count (130 - 400 /CUMM) 318 MPV (7.4 - 10.4 FL) 7.8 Gran % (42.2 - 75.2 %) 78.5 H Lymphocytes % (20.5 - 51.1 %) 14.5 L Monocytes % (1.7 - 9.3 %) 6.9 Eosinophils % (0 - 5 %) 0 Basophils % (0.0 - 2.0 %) 0.1 Absolute Granulocytes (1.4 - 6.5 /CUMM) 8.1 H Absolute Lymphocytes (1.2 - 3.4 /CUMM) 1.5 Absolute Monocytes (0.10 - 0.60 /CUMM) 0.7 H Absolute Eosinophils (0.0 - 0.7 /CUMM) 0 Absolute Basophils (0.0 - 0.2 /CUMM) 0 PUBS MCHC (33.0 - 37.0 G/DL) 32.7 L 07/03 1100 Blood Gas pH (7.35 - 7.45 PH) 7.52 H pCO2 (35 - 45 TORR) 39 pO2 (80 - 100 TORR) 63 L HCO3 (21 - 28 MEQ/L) 32 H ABG O2 Sat (Measured) (>96.0 %) 90.0 L Carboxyhemoglobin (1.5 - 5.0 %) 1.1 L O2 Concentration % RA O2 Delivery Method RA Miscellaneous Phlebotomy Draw Site RIGHT RADIAL
--- NOTE | 2017-01-05 10:36 | RADIOLOGY REPORT ---
EXAMINATION: XR CHEST CLINICAL INFORMATION: Shortness of breath. COMPARISON: 12/01/2016, 12/24/2016 and 12/30/2016 TECHNIQUE: 2 views of the chest were obtained. FINDINGS: Lungs are symmetrically hypoinflated. Again noted is the enlarged cardiac silhouette, prominent pulmonary vessels and interstitial opacities suggestive of persistent interstitial pulmonary edema. Small pleural effusions have not significantly changed in size. Thoracic aorta is calcified. There is smooth biapical pleural thickening. Compression fracture of the T11 vertebral body is unchanged compared to 12/01/2016. IMPRESSION: Cardiomegaly and persistent congestive heart failure. Small pleural effusions have not significantly changed in size compared to the prior exam.
[2017-01-05 11:41] VITALS: BP 104/62
[2017-01-05 13:00] VITALS: BP 100/60
[2017-01-05 14:47] VITALS: BP 102/56
--- NOTE | 2017-01-05 18:34 | PN- Cardiology ---
Subjective Subjective: No specific complaints. Was transfused one unit of PRBCs earlier. Objective Vital Signs and I&Os Vital Signs Date Time Temp Pulse Resp B/P B/P Pulse O2 O2 Flow FiO2 Mean Ox Delivery Rate 01/05 1447 97.2 71 18 102/56 94 Room Air / 1300 97.7 67 18 100/60 96 Room Air / 1141 97.8 66 20 104/62 97 /06 0852 118/70 07/06 0658 97.5 61 20 110/60 96 Room Air / 0000 Room Air / 2319 97.4 78 16 112/62 97 Intake & Output 01/05 1600 01/05 0800 / 0000 / 1600 01/04 0800 / 0000 Intake Total 800 120 280 498 808 750 Output Total 825 750 650 825 375 500 Balance -25 -630 -370 -327 433 250 Intake, Blood 300 Product Intake, IV 100 160 18 208 Intake, Oral 400 120 120 480 600 750 Number 0 Bowel Movements Output, Urine 825 750 650 825 375 500 Physical Exam: Well-developed, well-nourished elderly male in mild respiratory distress with nasal oxygen in place. Vital signs: See above. Neck: No JVD, bruits. Lungs: Bilateral crackles ~1/2 way up R>L. Heart: S1, S2 with soft (grade 1/6) systolic murmur. Abdomen: Soft, nontender, positive bowel sounds. Extremities: 2+ bilateral lower extremity edema. Current Medications: Current Medications Sig/Lenny Start time Last Medication Dose Route Stop Time Status Admin Amiodarone HCl 200 MG DAILY 12/27 1000 AC 01/05 PO 0852 Benzonatate 100 MG TID 12/27 1600 AC 01/05 PO 1751 Folic Acid 2 MG DAILY 12/22 1343 AC 01/05 PO 0852 Furosemide 80 MG DAILY 01/05 1000 AC 01/05 PO 0852 Heparin Sodium 25,000 UNIT Q24H 01/03 2200 AC 01/04 (Porcine) IV 2126 Sodium Chloride 500 ML Hydroxychloroquine 200 MG BID 12/22 2199 AC 01/05 Sulfate PO 0852 Insulin Aspart 0 TIDAC 12/26 1200 AC 01/05 SC 1751 Levothyroxine Sodium 0.2 MG DAILY AC 12/23 0700 AC 01/05 PO 0600 Polyethylene Glycol 17 GM DAILY 12/31 1007 AC 12/31 PO 1155 Potassium Chloride 20 MEQ BID 01/02 1000 AC 01/05 PO 0853 Prednisone 10 MG DAILY 01/01 1000 AC 01/05 PO 0853 Senna 187 MG AT BEDTIME PRN 12/31 1715 AC PO Senna/Docusate Sodium 2 TAB DAILY 12/31 1007 AC 01/05 PO 0852 Spironolactone 25 MG DAILY 01/05 1118 AC 01/05 PO 1212 Warfarin Sodium 3 MG COUMADIN 1700 ONE 01/05 1700 CAN PO 01/05 1701 Results Last 48 Hrs of Labs/Mics: Laboratory Tests 01/05/17 1712: APTT Pending 01/05/17 0720: APTT Cancelled 01/05/17 0718: Anion Gap 11, Estimated GFR 19 L, BUN/Creatinine Ratio 33.8 H, PT 19.4 H, INR 1.86 H, APTT < 120 *H, CBC w Diff NO MAN DIFF REQ, RBC 2.94 L, MCV 81.7, MCH 26.5 L, RDW 17.1 H, MPV 7.8, Gran % 74.0, Lymphocytes % 19.1 L, Monocytes % 6.7, Eosinophils % 0, Basophils % 0.2, Absolute Granulocytes 7.7 H, Absolute Lymphocytes 2.0, Absolute Monocytes 0.7 H, Absolute Eosinophils 0, Absolute Basophils 0, PUBS MCHC 32.4 L 01/04/17 2345: APTT > 120 *H 01/04/17 1600: APTT > 120 *H 01/04/17 0628: Anion Gap 11, Estimated GFR 18 L, BUN/Creatinine Ratio 32.4 H, PT 22.4 H, INR 2.15 H, APTT > 120 *H, CBC w Diff NO MAN DIFF REQ, RBC 2.96 L, MCV 81.3, MCH 26.5 L, RDW 17.0 H, MPV 7.9, Gran % 79.1 H, Lymphocytes % 15.1 L, Monocytes % 5.6, Eosinophils % 0, Basophils % 0.2, Absolute Granulocytes 8.7 H, Absolute Lymphocytes 1.7, Absolute Monocytes 0.6, Absolute Eosinophils 0, Absolute Basophils 0, PUBS MCHC 32.7 L Recent Imaging Studies: CXR (01/05/2017): Cardiomegaly and persistent congestive heart failure. Small pleural effusions have not significantly changed in size compared to the prior exam. Assessment/Plan Assessment/Plan [id number] w/ hx stroke at age 45 years complicated by GI bleed secondary to ASA Rx, HTN, HLD, hypothyroidism, GERD, RA s/p MTX Rx, prostate ca s/p hormone and radiation therapy, previous hemolytic anemia, pericardial tamponade s/p urgent pericardial window, HF [HFpEF], recurrent aspiration, recently discovered AF w/ MVR for which anticoagulation was initiated and w/ a significant deterioration in his LVEF echocardiography (EF 30%) performed for worsening complaints SOB () who presented to the ED on 12/22/2016 w/ c/o worsening SOB, dry cough, bilateral LE edema, orthopnea, etc., despite his enrollment in the heart wellness clinic where he has received IV furosemide on a 2x weekly basis (60 mg) , along with daily by mouth furosemide (20mg 2 daily). Suspect his left ventricular decompensation may be on the basis of atrial fibrillation with more rapid than previously documented ventricular response rates that may have led to a tachycardia mediated cardiomyopathy. He was anticoagulated with Xarelto for over a month, was loaded with amiodarone, and underwent successful electrical cardioversion on Monday (12/26/2016) with one 200 J shock while under TIVA (total intravenous anesthesia) and appears to be maintaining sinus rhythm thus far. The Xarelto was discontinued given his renal issues and he is now on warfarin with IV heparin bridging. He has suspected cardiorenal syndrome vs ATN w/ physical findings of volume overload and CXR evidence of persistent pulmonary edema with unchanged creatinine, anemia, etc. He is feeling improved after receiving one unit of packed cells and is not on an LUZ MARINA (erythropoietin stimulating agent) and think this would be of benefit. Recommendations: * Continue on telemetry. * Strict inputs/outputs and daily weights. * Continue on amiodarone maintenance. * Continue furosemide 80 mg daily, after replete potassium, but suspect he will slip back into heart failure. * Given his kidney issues was placed on warfarin with IV heparin bridging and had the factor Xa inhibitor discontinued. * Repeat CXR following good diuresis. * Follow-up H/H this p.m. and maintain hemoglobin above 8.0 g/dl. * Given significant diuresis today, would recheck potassium and magnesium this p.m. as well. * Check ESR, CRP, immunofixation electrophoresis. * Discuss his suitability for an erythropoietin stimulating agent and hemodialysis. * DVT prophylaxis being addressed by anticoagulation for his atrial fibrillation. Continue telemetry? Yes
[2017-01-05 18:42] LABS: PTT > 120 SEC (25-37)
[2017-01-05 22:48] LABS: ABSOLUTE BASOPHIL COUNT 0 /CUMM (0.0-0.2); ABSOLUTE EOSINOPHIL COUNT 0 /CUMM (0.0-0.7); ABSOLUTE GRANULOCYTE CT 8.2 /CUMM (1.4-6.5); ABSOLUTE LYMPH COUNT 1.1 /CUMM (1.2-3.4); ABSOLUTE MONOCYTE COUNT 0.6 /CUMM (0.10-0.60); BASOPHIL % 0 % (0.0-2.0); EOSINOPHIL % 0 % (0-5); HEMATOCRIT 28.8 % (42-52); MEAN CORPUSCULAR HGB 26.9 PG (27.0-31.0); MEAN CORPUSCULAR HGB CONC 32.8 G/DL (33.0-37.0); MEAN CORPUSCULAR VOLUME 81.9 FL (80.0-94.0); MEAN PLATELET VOLUME 7.8 FL (7.4-10.4); PLATELET COUNT 320 /CUMM (130-400); RBC DISTRIBUTION WIDTH 16.8 % (11.5-14.5); RED BLOOD CELL CT 3.51 /CUMM (4.70-6.10); WHITE BLOOD CELL COUNT 9.8 /CUMM (4.8-10.8)
[2017-01-05 22:59] VITALS: BP 102/60
[2017-01-06 02:54] LABS: PTT > 120 SEC (25-37)
[2017-01-06 06:00] VITALS: BP 100/70
[2017-01-06 08:49] LABS: ABSOLUTE BASOPHIL COUNT 0 /CUMM (0.0-0.2); ABSOLUTE EOSINOPHIL COUNT 0 /CUMM (0.0-0.7); ABSOLUTE GRANULOCYTE CT 7.7 /CUMM (1.4-6.5); ABSOLUTE LYMPH COUNT 1.9 /CUMM (1.2-3.4); ABSOLUTE MONOCYTE COUNT 0.6 /CUMM (0.10-0.60); BASOPHIL % 0.3 % (0.0-2.0); EOSINOPHIL % 0 % (0-5); GRANULOCYTE % 74.9 % (42.2-75.2); MEAN CORPUSCULAR HGB 26.6 PG (27.0-31.0); MEAN CORPUSCULAR HGB CONC 32.1 G/DL (33.0-37.0); MEAN CORPUSCULAR VOLUME 82.8 FL (80.0-94.0); MEAN PLATELET VOLUME 8.4 FL (7.4-10.4); PLATELET COUNT 307 /CUMM (130-400); RED BLOOD CELL CT 3.74 /CUMM (4.70-6.10); WHITE BLOOD CELL COUNT 10.3 /CUMM (4.8-10.8)
[2017-01-06 09:00] LABS: PT 19.5 SEC (9.4-12.5); PTT 63 SEC (25-37)
[2017-01-06 10:28] VITALS: BP 100/70
[2017-01-06] MEDS ORDERED: HEPARIN-NS25000 UNIT IV (10:32)
[2017-01-06] MEDS ORDERED: POTASSIUM CHLO20 ME3 PO (10:36)
[2017-01-06] MEDS ORDERED: NOVOLOG100 UNIT/2 SC ×2 (10:36→10:42)
[2017-01-06] MEDS ORDERED: ALDACTONE25 MG PO (10:36)
[2017-01-06] MEDS ORDERED: PREDNISONE10 M2 PO (10:36)
[2017-01-06] MEDS ORDERED: LASIX40 M1 PO (10:36)
--- NOTE | 2017-01-06 18:24 | PN- Housestaff ---
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 no complaints, in a cheerful mood. Review of Systems Constitutional: Reports: no symptoms. EENTM: Reports: no symptoms. Cardiovascular: Reports: edema. Denies: chest pain, orthopena, palpitations, peripheral edema, syncope. Respiratory: Reports: no symptoms. Gastrointestinal: Reports: no symptoms. Genitourinary: Reports: no symptoms. Musculoskeletal: Reports: no symptoms. Skin: Reports: no symptoms. Neurological/Psychological: Reports: no symptoms. Hematologic/Endocrine: Reports: bruising. Objective Last 24 Hrs of Vital Signs/I&O Vital Signs Date Time Temp Pulse Resp B/P B/P Pulse O2 O2 Flow FiO2 Mean Ox Delivery Rate 01/06 1028 66 100/70 0707 0600 98.7 66 20 100/70 97 Room Air 01/05 2259 97.9 86 18 102/60 96 Room Air Intake & Output 01/06 1600 01/06 0800 01/06 0000 Intake Total 100 573.6 Output Total 700 1100 Balance -600 -526.4 Intake, IV 33.6 Intake, Oral 100 540 Output, Urine 700 1100 Patient 152 lb 151 lb Weight Weight Chair scale Chair scale Measurement Method Physical Exam General Appearance: Alert, Oriented X3, Cooperative, No Acute Distress Skin: No Rashes, No Breakdown, No Significant Lesion Skin Temp/Moisture Exam: Warm/Dry Sepsis Skin Exam (color): Normal for Ethnicity HEENT: Atraumatic, PERRLA, Mucous Membr. moist/pink Neck: Supple Cardiovascular: Regular Rate, Normal S1, Normal S2, No Murmurs, Gallops, Rubs Lungs: bibasalar inspiratory crackles bilaterally Abdomen: Normal Bowel Sounds, Soft, No Tenderness Neurological: Normal Speech Extremities: No Clubbing, No Cyanosis, Normal Pulses, No Tenderness/Swelling, 2+ pitting edema bilaterally Vascular: Normal Pulses, Pulses Symmetrical Sepsis Peripheral Pulse Location: Radial Sepsis Peripheral Pulse Exam: Normal Current Medications: Current Medications Sig/Lenny Start time Last Medication Dose Route Stop Time Status Admin Amiodarone HCl 200 MG DAILY 12/27 1000 DCD 01/06 PO 1028 Benzonatate 100 MG TID 12/27 1600 DCD 01/06 PO 1029 Folic Acid 2 MG DAILY 12/22 1343 DCD 01/06 PO 1028 Furosemide 80 MG DAILY 01/05 1000 DCD 01/06 PO 1028 Heparin Sodium 25,000 UNIT Q24H 01/03 2200 DCD 01/05 (Porcine) IV 2118 Sodium Chloride 500 ML Hydroxychloroquine 200 MG BID 12/22 2200 DCD 01/06 Sulfate PO 1029 Insulin Aspart 0 TIDAC 12/26 1200 DCD 01/05 SC 1751 Levothyroxine Sodium 0.2 MG DAILY AC 12/23 0700 DCD 01/06 PO 0640 Polyethylene Glycol 17 GM DAILY 12/31 1007 DCD 12/31 PO 1155 Potassium Chloride 20 MEQ BID 01/02 1000 DCD 01/06 PO 1037 Prednisone 10 MG DAILY 01/01 1000 DCD 01/06 PO 1029 Senna 187 MG AT BEDTIME PRN 12/31 1715 DCD PO Senna/Docusate Sodium 2 TAB DAILY 12/31 1007 DCD 01/06 PO 1029 Spironolactone 25 MG DAILY 01/05 1118 DCD 01/06 PO 1028 Last 24 Hrs of Lab/Thomas Results Last 24 Hrs of Labs/Mics: Laboratory Tests 01/06/17 0722: Anion Gap 14, Estimated GFR 18 L, BUN/Creatinine Ratio 31.5 H, C-React Prot High Sens 6.4 H, PT 19.5 H, INR 1.87 H, APTT 63 H, CBC w Diff NO MAN DIFF REQ, RBC 3.74 L, MCV 82.8, MCH 26.6 L, RDW 17.0 H, MPV 8.4, Gran % 74.9, Lymphocytes % 18.5 L, Monocytes % 6.3, Eosinophils % 0, Basophils % 0.3, Absolute Granulocytes 7.7 H, Absolute Lymphocytes 1.9, Absolute Monocytes 0.6, Absolute Eosinophils 0, Absolute Basophils 0, PUBS MCHC 32.1 L, ESR Westergren 125 H 01/06/17 0135: APTT > 120 *H 01/05/17 2145: Anion Gap 10, Estimated GFR 17 L, BUN/Creatinine Ratio 31.1 H, Magnesium 2.1, CBC w Diff NO MAN DIFF REQ, RBC 3.51 L, MCV 81.9, MCH 26.9 L, RDW 16.8 H, MPV 7.8, Gran % 83.0 H, Lymphocytes % 11.0 L, Monocytes % 6.0, Eosinophils % 0, Basophils % 0 L, Absolute Granulocytes 8.2 H, Absolute Lymphocytes 1.1 L, Absolute Monocytes 0.6, Absolute Eosinophils 0, Absolute Basophils 0, PUBS MCHC 32.8 L Orders Stool Guaiac Testing: postive 01/03 Lines/Diet/Fluids Fluids/Infusions: heparin Catheters/Tubes: fofana Lines: peripheral lines Assessment/Plan Assessment: Patient is 76-year-old gentleman with past medical history significant for hypertension, CVA, CHF, rheumatoid arthritis, peptic ulcer and GI bleeding, hypothyroidism, diabetes, who presents to the hospital with worsening SOB for one day, dry cough, and bilateral LE edema despite lasix treatment. Was successfully cardioverted on 12/26. Patient is stable. Now will be transferred to [facility] under the care of Dr. Read who will perform biventricular pacemaker resynchronization therapy on him. Assessment - * Acute on chronic CHF - LVEF 30% --> cardiorenal syndrome: clinically improved in terms of breathing but still with bibasalar inspiratory crackles and with 2+ pitting edema bilaterally. metalozone and lasix stopped and acetazolamide x2 given. Currently on 80 mg lasix IV. * XI- Cr. 1.2 on admission, today's result 3.3, not decreasing despite clinical improvement. ? of ATN due to drugs (xaralto?) or cardiorenal syndrome. crcl calculated 18.49. bps stable, i/o -600. * Anemic to 7.8 7/ morning. 7.9 ON 01/04. TRANFUSED / TO GOOD EFFECT. NEW HB 9.9. * Hypokalemia 2/2 diuresis CURRENTLY 3.9 * Afib likely 2/2 dilated cardiomyopathy treated with cardioversion * Type 2 Diabetes * Hypothyroidism * Hypertension * Hyperlipidemia * GERD * History of CVA, followed by GI bleed secondary to aspirin * Rheumatoid arthritis on methotrexate and prednisone. * Anemia of chronic disease Plan - Acute Kidney injury secondary to decrease renal perfusion: XI- Cr. 1.2 on admission, todays lab 3.3, has not decreased despite clinical improvement. ? of ATN due to drugs (xaralto, hydroxychloroquin) or cardiorenal syndrome. abg 7.52 hco3 32 and co2 39. metalozone and lasix stopped and acetazolamide x2 given. Currently on 80 mg lasix IV. NEPHROLOGY, SPRINOLACTONE 25 WAS ORDERED. * PER NEPHROLOGY NOTE DO NOT GIVE MOISES OR ARB DUE TO HIGH CR, PT SHOULD BE SEEN AT [facility] AFTER DISCHARGE * plan was to switch xaralto to warfarin with heparin bridge. xaralto has cleared the system and now we can watch INR as a good indicator of anticoagulation on warfarin. HOWEVER, WE ARE HOLDING COUMADIN FOR HIS EP PROCEDURE (HE IS NOW ONLY ON HEPARIN) * consider kidney biopsy down the line if etiology is not discovered - follow nephrology recommendations. HE WILL FOLLOWUP WITH NEPHROLOGY OUTPATIENT. * hold ppi * Strict intake output charting * Daily weight measurement Hypokalemia 2/2 diuresis * K+ 3.9 for today was 4.2 two days ago STOP KDUR Low HB of 7.8 * GUAIC WAS POSITIVE BUT NOTE SHOWS HISTORY OF CHRONIC BLEED. CONTINUE HEPARIN BRIDGE AND MONITOR CBC Atrial fibrillation with controlled ventricular rate * continue amiodarone maintenance 200 milligrams daily according to Dr Read to keep in NSR. pt on xaralto switch to coumadin and heparin bridge. watch INR as indicator of anticoagulation starting today. 1.87 INR this morning. KEEP PATIENT OFF COUMADIN FOR UPCOMING EP PROCEDURE. Rhematoid Arthritis * ESR found to be 130 so increase steroid from 5mg to 10mg * New ESR 129. 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 * Chest x-ray showed Improved aeration at both lung bases and apparent slight decrease in size of bilateral pleural effusions since the prior study. Dated . No other significant change. 01/05 IMPRESSION: Cardiomegaly and persistent congestive heart failure. Small pleural effusions have not significantly changed in size compared to the prior exam. Hypothyroidism, type 2 diabetes, hyperlipidemia, -continue all home medication DVT prophylaxis-COUMADIN WITH HEPARIN BRIDGE CURRENTLY Diet-heart healthy diet. Fluid restriction to 1 liter CODE STATUS-full code Problem List: 1. Hypokalemia 2. Cardiorenal syndrome 3. CHF (congestive heart failure) 4. Afib 5. Rheumatoid arthritis 6. Hypothyroidism 7. Hyperlipidemia 8. GI BLEED Pain Ratin Pain Location: na Pain Goal: Remain pain free Pain Plan: na Tomorrow's Labs & Rationales: PATIENT IS EXPECTED TO BE DISCHARGED Discharge Plan Discharge Disposition: transfer to another hosp Stable for Discharge? Yes Anticipated Discharge (Day): today If Discharged Today/In 24 Hrs: DC summary done
== END 2017-01-06 11:48 | DRG 291 ==
LOC: ERH 09:43 → 1NO 11:17 → ERHI 11:17 → ENRESERV 11:20 → ENTRNSPT 11:58 → EDTRNSPTSTS 12:30 → 1NO 12:36 → CMPTRNSPT 12:55 → 1NO 14:59 → ENPENDDIS 01-06 10:59 → 1NO 01-06 11:48
PROVIDERS: Emergency Medicine; Internal Medicine; Internal Medicine Adolescent Medicine; Student in an Organized Health Care Education/Training Program; ADMIT Hospitalist
PROC: 5A2204Z Restoration of Cardiac Rhythm, Single (ICD-10-PCS; principal; 2016-12-26)
PROC: 30233N1 Transfusion of Nonautologous Red Blood Cells into Peripheral Vein, Percutaneous Approach (ICD-10-PCS; 2017-01-05)
DX: I13.0 Hypertensive heart and chronic kidney disease with heart failure and stage 1 through stage 4 chronic kidney disease, or unspecified chronic kidney disease (principal); J96.01 Acute respiratory failure with hypoxia; N17.0 Acute kidney failure with tubular necrosis; I50.33 Acute on chronic diastolic (congestive) heart failure; E87.1 Hypo-osmolality and hyponatremia; E87.3 Alkalosis; I48.91 Unspecified atrial fibrillation; Z79.01 Long term (current) use of anticoagulants; E78.5 Hyperlipidemia, unspecified; E03.9 Hypothyroidism, unspecified; K21.9 Gastro-esophageal reflux disease without esophagitis; M06.9 Rheumatoid arthritis, unspecified; Z85.46 Personal history of malignant neoplasm of prostate; Z92.3 Personal history of irradiation; I34.0 Nonrheumatic mitral (valve) insufficiency; Z86.73 Personal history of transient ischemic attack (TIA), and cerebral infarction without residual deficits; I44.7 Left bundle-branch block, unspecified; Z87.11 Personal history of peptic ulcer disease; D63.8 Anemia in other chronic diseases classified elsewhere; D63.1 Anemia in chronic kidney disease; E11.22 Type 2 diabetes mellitus with diabetic chronic kidney disease; I36.1 Nonrheumatic tricuspid (valve) insufficiency; I44.0 Atrioventricular block, first degree; Z79.52 Long term (current) use of systemic steroids; I42.0 Dilated cardiomyopathy; E87.6 Hypokalemia; N18.3 Chronic kidney disease, stage 3 (moderate)
CPT/HCPCS: 1NSP; 84133; 84300; 36415; 74230; 76775; 81001; 82436; 82570; 86920; 93005; 93010; 96374; 96375; 97110-GO; 97112-GO; 97116-GO; 97161-GP; 97530-GO; 99291; J1120; J1644; J1815; J1940; J3490; J7512; P9016